=== PATIENT | female | born 1960 | race Caucasian/White ===

== ENCOUNTER 2021-04-07 13:46 | Outpatient (REF) | payer MEDICARE, MEDICAID, SELFPAY ==
[2021-04-07 14:13] LABS: COVID-19 Test Negative (Negative)
== END 2021-04-07 13:47 | disposition home or self-care (01) ==
LOC: HO.LAB 13:46
PROVIDERS: Visit Provider Internal Medicine
DX: Z20.822 Contact with and (suspected) exposure to COVID-19 (principal)
CPT/HCPCS: 36415; 87635; C9803

== ENCOUNTER 2021-05-14 17:49 | Emergency (ER) | payer MEDICARE, OTHER, SELFPAY ==
--- NOTE | ~2021-05-14 | XR_ITS ---
EXAMINATION: XR ANKLE, LEFT CLINICAL INFORMATION: Left ankle injury COMPARISON: None TECHNIQUE: AP, lateral, and mortise views of the left ankle. FINDINGS: There is a nondisplaced intra-articular fracture involving the plantar aspect of the distal calcaneus at the calcaneocuboid joint demonstrated on the lateral view only. No additional fractures are evident. The ankle mortise is preserved. There is an ankle joint effusion. Diffuse soft tissue swelling. Large heel spur. Posterior calcaneal enthesophyte. XR/XR ankle LT min 3V IMPRESSION: There is a nondisplaced fracture of the distal calcaneus extending into the calcaneocuboid joint. No additional fractures are demonstrated.
[2021-05-14 20:09] VITALS: BP 156/79; PULSE 70; RESP 18; TEMP 36.7; O2SAT 99; BMI 27.3
--- NOTE | 2021-05-14 20:43 | ED_ITS ---
HPI - Extremity Injury (Lower) General Chief Complaint: Extremity Injury, Lower Stated Complaint: fall - left leg pain Source: patient Mode of arrival: wheelchair Limitations: no limitations History of Present Illness HPI Narrative: 6-year-old female presents with left foot and ankle pain. Stated that she slipped off her stool yesterday. She has been unable to bear weight and reports 10/10 pain. She does not report any injuries or any prodromal symptoms prior to the fall. MD complaint: ankle injury and foot injury Onset (ago): day(s) (1) Place: home Severity: moderate Severity scale (1-10): 7 Relieving factors: nothing Exacerbating factors: weight bearing, movement and palpation Context: fall Associated symptoms: swelling and unable to bear weight Other symptoms: none Treatments prior to arrival: cold therapy and NSAIDS Related Data Previous Rx's Medication Instructions Recorded oxycodone 5 mg tablet 5 mg PO Q8H PRN #7 tab 05/14/21 Allergies Allergy/AdvReac Type Severity Reaction Status Date / Time apple [Apple] Allergy Unknown APPLE PEEL Verified 05/14/21 20:07 - ITCHY THROAT nut - unspecified [nut] Allergy Unknown ITCHY Verified 05/14/21 20:07 THROAT pineapple [Pineapple] Allergy Unknown ITCHY Verified 05/14/21 20:07 THROAT acetaminophen [From Percocet] Allergy Anxiety Verified 05/14/21 20:08 oxycodone [From Percocet] Allergy Anxiety Verified 05/14/21 20:08 DUST Allergy Unknown EYES, NOSE Uncoded 05/14/21 20:07 ITCHY - ASTHMA GRASS Allergy Unknown ITCHY EYES Uncoded 05/14/21 20:07 - THROAT Review of Systems Review of Systems: Constitutional: No Fever, No Chills ENT/Mouth: No Ear Pain, No Hoarseness, No sore throat Eyes: No Eye Pain, No Swelling, No Redness, No Foreign Body Cardiovascular: No Chest Pain, No SOB Respiratory: No Cough, No Dyspnea Gastrointestinal: No Nausea, No Vomiting, No Diarrhea, No abdominal Pain Genitourinary: No Dysuria, No Hematuria Musculoskeletal: positive left foot and ankle pain, swelling and bruising, No Myalgias Skin: No Skin lacerations, No rash Neuro: No Weakness, No Numbness, No Paresthesias, No Loss of Consciousness, No Dizziness, No Headache Psych: No Anxiety/Panic, No Depression Heme/Lymph: no easy bruising, no Lymphadenopathy Endocrine: No Polyuria, No Polydipsia Yes all other systems are reviewed and are negative [facility], [facility] Past Medical History Attestation statement: The following information was validated with the patient. Source: old records reviewed Social History Social History Advance Directives: No Patient : No Physical Exam Vital Signs: Vital Signs: Last Vital Signs Temp 98.1 F 05/14/21 20:09 Pulse 70 05/14/21 20:09 Resp 18 05/14/21 20:09 BP 156/79 H 05/14/21 20:09 Pulse Ox 99 05/14/21 20:09 Body Mass Index 27.3 Appearance: Alert. Oriented X3. No acute distress. Eyes: Pupils equal, round and reactive to light. ENT: Pharynx normal. Neck: Normal inspection. Neck supple. CVS: Normal heart rate and rhythm. Pulses normal. Respiratory: No respiratory distress. Breath sounds normal. Abdomen: Soft and nontender. Skin: Skin warm and dry. Normal skin color. Normal skin turgor. Extremities: Swelling and bruising noted to the left bilateral malleolar processes and foot. Decreased range of motion internal and external rotation flexion and extension. No tenderness noted to bilateral malleolar processes however there is tenderness to the heel. Brisk capillary refill and equal pedal pulses. Neuro: No motor deficit. No sensory deficit. Cranial nerves 2-12 intact. Course Course Course Narrative: 60-year-old female presents with left-sided foot and ankle pain and swelling with significant bruising after a fall. X-rays indicate calcaneal fracture, will place patient in a posterior short-leg splint with crutches and nonweightbearing. I did discuss this case with Orthopedics, patient will follow up tomorrow with Ezio TREJO. Patient continues with brisk capillary refill approximately 30 minutes status post splint placement. patient verbalized understanding of and agrees to plan of care discharge home. Consultations Consultation #1: Ezio Time: 21:00 MDM - Extremity Injury (Lower) Differential Diagnosis Differential diagnosis: Likely ankle sprain and strain and ankle fracture Medical Records Attestation: I reviewed the patient's medical records. Imaging Data left ankle and foot x-ray: Attestation: I personally reviewed and interpreted this imaging study as follows: Radiologist's impression: EXAMINATION: XR ANKLE, LEFT CLINICAL INFORMATION: Left ankle injury? COMPARISON: None? TECHNIQUE: AP, lateral, and mortise views of the left ankle. FINDINGS: There is a nondisplaced intra-articular fracture involving the plantar aspect of the distal calcaneus at the calcaneocuboid joint demonstrated on the lateral view only. No additional fractures are evident. The ankle mortise is preserved. There is an ankle joint effusion. Diffuse soft tissue swelling. Large heel spur. Posterior calcaneal enthesophyte.? XR/XR ankle LT min 3V IMPRESSION: There is a nondisplaced fracture of the distal calcaneus extending into the calcaneocuboid joint. No additional fractures are demonstrated. Discharge Plan Discharge Clinical Impression: Calcaneus fracture, left Qualifiers: Encounter type: initial encounter Calcaneus location: unspecified portion of calcaneus Fracture type: closed Fracture alignment: nondisplaced Qualified Code(s): S92.002A - Unspecified fracture of left calcaneus, initial encounter for closed fracture Ankle joint effusion Qualifiers: Laterality: left Qualified Code(s): M25.472 - Effusion, left ankle Patient Disposition: Home, Self-Care Instructions: Crutch Instructions (ED), Calcaneal Fracture (ED), R.I.C.E. Treatment (ED), Swollen Ankle Joint (ED) Additional Instructions: you were evaluated for an ankle injury. You have a nondisplaced fracture of the calcaneus, the heel bone. We placed you in a cast, you must cast in place until you see orthopedics. You must use crutches for all ambulation. You cannot bear any weight on that foot. I discussed Your case with Orthopedics. They will call you in the morning to schedule an appointment. I prescribed oxycodone for pain management. This medication is a narcotic and has high risk for addiction abuse. Do not drive or operate machinery while taking this medication. This medication is constipating so please use Colace and MiraLax to help soften stools. You must not apply any weight or pressure to that foot. you may not work until cleared by Orthopedics. This could possibly takes 7 weeks or longer to heal. Thank you for choosing this emergency department for evaluation. Please follow-up with primary care physician as needed. Return to the emergency department for any new, concerning, or worsening symptoms. Prescriptions: New oxycodone 5 mg tablet 5 mg PO Q8H PRN (Reason: pain) Qty: 7 RF: 0 Referrals: Alise Holguin PA-C [Physician [employer]] - 2 days ( calcaneus fracture) Stand Alone Forms: Work/School Release Interventions: ED Discharge Assessment Last Done: 05/14/21 22:10 Discharge Date/Time: 05/14/21 22:11
--- NOTE | 2021-05-14 22:10 | PC.NURSE ---
Pt refusing Oxycodone @ this time.
== END 2021-05-14 22:11 | disposition home or self-care (01) ==
PROVIDERS: Emergency Provider Internal Medicine
DX: S92.002A Unspecified fracture of left calcaneus, initial encounter for closed fracture (principal); W17.89XA Other fall from one level to another, initial encounter; M25.472 Effusion, left ankle; Y93.9 Activity, unspecified; Y92.009 Unspecified place in unspecified non-institutional (private) residence as the place of occurrence of the external cause; Y99.9 Unspecified external cause status
CPT/HCPCS: 29515; 73610; 99283

== ENCOUNTER → 2021-05-22 14:41 | Outpatient (BNVA) | payer MEDICARE, OTHER, SELFPAY | PROVIDERS: Visit Provider Physician Assistant | DX: S92.002A Unspecified fracture of left calcaneus, initial encounter for closed fracture (principal) | CPT/HCPCS: 99202 ==

== ENCOUNTER 2021-07-05 08:04 | Outpatient (REF) | payer MEDICARE, OTHER, SELFPAY | END 2021-07-05 08:05 | disposition home or self-care (01) | LOC: HO.HOSX 08:04 | PROVIDERS: Visit Provider Physician Assistant | DX: Z13.89 Encounter for screening for other disorder (principal) ==

== ENCOUNTER 2021-07-27 17:53 | Emergency (ER) | payer MEDICARE, OTHER, SELFPAY ==
--- NOTE | ~2021-07-27 | XR_ITS ---
EXAMINATION: X-RAY RIGHT KNEE X-RAY RIGHT FOOT CLINICAL INFORMATION: Pain. COMPARISON: None. TECHNIQUE: 2 views of the right knee and 3 views of the right foot were obtained. FINDINGS: Right knee: No acute fractures or malalignment. Mild tricompartmental degenerative changes with joint space narrowing and subcortical sclerosis. Small joint effusion. Vascular calcifications. Postsurgical changes in the posterior compartment with vascular stents and clips. Right foot: No acute fractures or malalignment. Mild degenerative osteoarthritis. Calcaneal enthesophytes. XR/XR knee RT 2V IMPRESSION: No acute fractures or malalignment. Small joint effusion in the right knee. 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 Vascular calcifications and postsurgical changes in the posterior thigh and posterior upper calf.
--- NOTE | ~2021-07-27 | XR_ITS ---
EXAMINATION: X-RAY RIGHT KNEE X-RAY RIGHT FOOT CLINICAL INFORMATION: Pain. COMPARISON: None. TECHNIQUE: 2 views of the right knee and 3 views of the right foot were obtained. FINDINGS: Right knee: No acute fractures or malalignment. Mild tricompartmental degenerative changes with joint space narrowing and subcortical sclerosis. Small joint effusion. Vascular calcifications. Postsurgical changes in the posterior compartment with vascular stents and clips. Right foot: No acute fractures or malalignment. Mild degenerative osteoarthritis. Calcaneal enthesophytes. XR/XR foot RT 2V IMPRESSION: No acute fractures or malalignment. Small joint effusion in the right knee. 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 Vascular calcifications and postsurgical changes in the posterior thigh and posterior upper calf.
[2021-07-27 18:41] VITALS: BP 135/46; PULSE 70; RESP 16; TEMP 36.5; O2SAT 99; BMI 27.1
--- NOTE | 2021-07-27 21:41 | ED_ITS ---
HPI - Extremity Problem General Chief complaint: Extremity Problem Stated complaint: rt knee and ankle pain Time Seen by Provider: 07/27/21 21:11 Source: patient Mode of arrival: ambulatory Limitations: no limitations History of Present Illness HPI Narrative: 60 years old female came in for evaluation of right knee / right ankle pain. Patient had left foot/ left ankle fracture need to wear airboot, patient been bearing more weight on her left side, yesterday while patient going up stairs at home almost fell down but caught herself before falling down, sustained pain in her right knee and right ankle, patient stated that pain is getting better by elevating right lower extremities and applying heating pad. Patient otherwise has no complain of headache or chest pain or abdominal pain. Related Data Previous Rx's Medication Instructions Recorded oxycodone 5 mg tablet 5 mg PO Q8H PRN #7 tab 05/14/21 walker #1 ea 05/22/21 Allergies Allergy/AdvReac Type Severity Reaction Status Date / Time apple [Apple] Allergy Unknown APPLE PEEL Verified 05/22/21 14:43 - ITCHY THROAT nut - unspecified [nut] Allergy Unknown ITCHY Verified 05/22/21 14:43 THROAT pineapple [Pineapple] Allergy Unknown ITCHY Verified 05/22/21 14:43 THROAT acetaminophen [From Percocet] Allergy Anxiety Verified 05/22/21 14:43 oxycodone [From Percocet] Allergy Anxiety Verified 05/22/21 14:43 DUST Allergy Unknown EYES, NOSE Uncoded 05/14/21 20:07 ITCHY - ASTHMA GRASS Allergy Unknown ITCHY EYES Uncoded 05/14/21 20:07 - THROAT Review of Systems Review of Systems: All other systems are reviewed and are negative Constitutional: Reports as per HPI and Reports no additional constitutional complaints Eyes: Reports as per HPI and Reports no additional eye complaints Reports system reviewed and no additional complaints, except as documented Cardiovascular: Reports as per HPI and Reports no additional cardiovascular complaints Respiratory: Reports as per HPI and Reports no additional respiratory complaints Gastrointestinal: Reports as per HPI and Reports no additional gastrointestinal complaints Genitourinary: Reports no additional female genitourinary complaints Musculoskeletal: Reports no additional musculoskeletal complaints Skin/Breast: Reports system reviewed and no additional complaints, except as docu Psychiatric: Reports no additional psychiatric complaints Endocrine: Reports no additional endocrine complaints Hematologic/Lymphatic: Reports no additional hematologic/lymphatic complaints Allergic/Immunologic: Reports no additional allergic/immunologic complaints Reports system reviewed and no additional complaints, except as documented and Reports Abnormal speech present [facility] [place] Social History Social History Advance Directives: No Advance Directives Information Provided: No Physical Exam Vital Signs: Vital Signs: Last Vital Signs Temp 97.7 F 07/27/21 18:41 Pulse 70 07/27/21 18:41 Resp 16 07/27/21 18:41 BP 135/46 L 07/27/21 18:41 Pulse Ox 99 07/27/21 18:41 BMI result Body Mass Index 27.1 vital signs have been reviewed as appeared to be correct. Blood pressure normal. Heart rate normal. Respiration rate normal. Temperature normal. Oxygen saturation normal. Appearance: Alert. Oriented X3. No acute distress. Head: Normal external exam. Normocephalic. Atraumatic. No Parks signs noted. No raccoon eyes noted Eyes: PERRLA. EOMI. Conjunctiva and sclera normal. Eyelids normal. ENT: TM's Normal. Pharynx normal. Uvula midline. Moist mucous membranes. No trismus noted. No drooling noted. No muffled voice noted. Neck: Normal inspection. Neck supple. FROM. No adenopathy. Thyroid Normal. No meningeal signs. No neck mass noted. CVS: Normal heart rate and rhythm. Heart sound normal. No murmurs noted. Pulses normal throughout. Respiratory: No respiratory distress. Painless inspiration. Breath sounds normal. No wheezes/rales/rhonchi noted. Chest nontender. No accessory muscle usage noted or decreased air movement noted. Abdomen: Soft and nontender. Bowel sounds normal in all 4 quadrants. No distention noted. No organomegaly noted. No visible injury noted. Back: No CVA tenderness. Full range of motion noted. Skin: Skin warm and dry. Normal skin color. Normal skin turgor. No rashes/lesions/lacerations noted. Extremities: No lower extremity edema. Extremities exhibit normal range of motion. Extremities nontender. Neuro: Oriented X 3. Cranial nerve exam: II-XII are grossly intact No motor deficit. No sensory deficit. Reflexes normal. MDM - Extremity (Nontraumatic) Imaging Data left foot x-ray: Attestation: I personally reviewed and interpreted this imaging study as follows: Radiologist's impression: no acute fracture or malalignment. Left knee x-ray: Attestation: I personally reviewed and interpreted this imaging study as follows: Radiologist's impression: small joint effusion but no fracture or malalignment. Discharge Plan Discharge Clinical Impression: Arthralgia of ankle, right Patient Disposition: Home, Self-Care Instructions: Arthralgia (ED) Prescriptions: No Action oxycodone 5 mg tablet 5 mg PO Q8H PRN (Reason: pain) Qty: 7 0RF Rx Instructions: calcaneus fracture (DME) walker Misc See Rx Instructions .MEDSUPPLY Qty: 1 0RF Rx Instructions: walker with seat and brakes Referrals: Physician,None [Primary Care Provider] - 2 days
== END 2021-07-27 22:13 | disposition home or self-care (01) ==
PROVIDERS: Emergency Provider Emergency Medicine
DX: M25.571 Pain in right ankle and joints of right foot (principal); M25.561 Pain in right knee
CPT/HCPCS: 73560; 73620; 99283

== ENCOUNTER 2021-08-02 11:34 | Outpatient (REF) | payer MEDICARE, OTHER, SELFPAY ==
--- NOTE | ~2021-08-02 | XR_ITS ---
EXAMINATION: XR CALCANEUS, LEFT CLINICAL INFORMATION: S92.002A - Unspecified fracture of left calcaneus COMPARISON: Radiographs left ankle 05/14/2021 TECHNIQUE: Lateral and axial views of the left calcaneus were obtained. FINDINGS: The nondisplaced hairline fracture distal calcaneus extending to the calcaneo-cuboid articulation is less conspicuous consistent with interval healing. There is no displacement or destructive process or interval degenerative changes. Again, there is a bulky posterior and plantar calcaneal spurs. XR/XR calcaneus LT min 2V IMPRESSION: Healing hairline nondisplaced fracture distal calcaneus.
== END 2021-08-02 11:35 | disposition home or self-care (01) ==
LOC: HO.HOSX 11:34
PROVIDERS: Visit Provider Physician Assistant
DX: S92.002D Unspecified fracture of left calcaneus, subsequent encounter for fracture with routine healing (principal)
CPT/HCPCS: 73650; 99212

== ENCOUNTER 2022-05-13 04:41 | Emergency (ER) | payer MEDICARE, MEDICAID, OTHER, SELFPAY ==
--- NOTE | 2022-05-13 | ECG_ITS ---
Test Reason : SYNCOPE Blood Pressure : / mmHG Vent. Rate : 067 BPM Atrial Rate : 067 BPM P-R Int : 178 ms QRS Dur : 096 ms QT Int : 436 ms P-R-T Axes : 054 -66 049 degrees QTc Int : 460 ms Normal sinus rhythm Left anterior fascicular block Nonspecific T wave abnormality Low voltage QRS Abnormal ECG When compared with ECG of 26-MAY-2007 11:12, Nonspecific T wave abnormality now evident in Anterolateral leads Inferior leads Referred By: Generic ED Physician Electronically Signed By:ERMIAS BOURNE MD
--- NOTE | ~2022-05-13 | CT_ITS ---
EXAMINATION: NONCONTRAST HEAD CT NONCONTRAST CERVICAL SPINE CT INDICATION INFORMATION: Fall. Headache. COMPARISON: None TECHNIQUE: Separate noncontrast CT examinations of the head and cervical spine were performed. Coronal and sagittal images were created for each examination at the technologist workstation. This CT examination was performed using dose optimization techniques as appropriate, variously including the following: *Automated exposure control *Adjustment of mA and/or kV according to patient size (this includes techniques or standardized protocols for targeted exams where dose is matched to indication/reason for exam; i.e. extremities or head) *Use of iterative reconstruction technique DLP: 964 mGy-cm FINDINGS: Head: There is no evidence of acute intracranial hemorrhage or territorial infarction. No abnormal mass effect or midline shift is seen. [place] to white matter differentiation is well preserved. No extra-axial fluid collections are identified. No hydrocephalus. Proportional prominence of the ventricles and sulcal spaces is consistent with mild volume loss. Patchy periventricular and deep white matter hypoattenuation is consistent with mild small vessel ischemic changes. No acute osseous or soft tissue abnormality. The mastoid air cells and visualized portions of the paranasal sinuses are well aerated. Cervical spine: There is anatomic alignment of the vertebral bodies and posterior elements. The atlantoaxial and atlantooccipital articulations are intact. Vertebral body heights and intervertebral disc spaces are maintained. Mild facet arthropathy. No evidence of acute fracture. No prevertebral soft tissue swelling. Visualized portions of the lung apices are unremarkable. The thyroid gland is unremarkable. CT/CT cervical spine wo IV con IMPRESSION: 1. No acute intracranial finding. 2. No fracture or malalignment of the cervical spine.
--- NOTE | ~2022-05-13 | XR_ITS ---
EXAMINATION: XR CHEST CLINICAL INFORMATION: Syncope, dizziness, rule out pneumonia COMPARISON: None TECHNIQUE: Frontal view of the chest was obtained. FINDINGS: Sternal wires and surgical clips are evident in the cardiomediastinal silhouette. Cardiac and mediastinal contours are normal. Lung volumes are normal. No consolidation, pneumothorax, or pleural effusion. Thoracic spondylosis. Osteoarthritis is present in the acromioclavicular and glenohumeral joints. XR/XR chest 1V IMPRESSION: No acute pulmonary disease.
[2022-05-13 04:51] VITALS: BP 112/80; BP 115/53; PULSE 68; PULSE 70; RESP 12; O2SAT 98; BMI 27.4
[2022-05-13 05:46] LABS: COVID-19 Test Negative (Negative); IDNOW Serial# BCCEAD1C
[2022-05-13 05:50] LABS: IDNOW Serial# 16C4AD1C; Influenza A Negative (Negative); Influenza B2 Negative (Negative)
[2022-05-13 05:56] LABS: Alanine Aminotransferase 24 U/L (0-31); Albumin Level 4.2 g/dL (3.5-5.0); Alkaline Phosphatase 62 U/L (39-117); Anion Gap 18 (12-20); Aspartate Amino Transferase 22 U/L (5-31); Bilirubin Total 0.5 mg/dL (0.0-1.0); Blood Urea Nitrogen 17 mg/dL (9-16); Calcium 9.7 mg/dL (8.4-10.2); Carbon Dioxide 24 mmol/L (22-29); Chloride 102 mmol/L (96-108); Creatinine Clr Calc Pharmacy 34.7; Estimated Glomerular Filt Rate 34; Ethanol < 10 mg/dL; Glucose Random 162 mg/dL (60-115); Potassium 4.5 mmol/L (3.3-5.1); Sodium 139 mmol/L (135-145); Total Protein 7.5 g/dL (6.5-8.0)
[2022-05-13 05:58] LABS: Troponin-I High Sensitivity 6.3 ng/L (<3.5-17.0)
[2022-05-13 07:03] LABS: Basophils Absolute Auto 0.1 X10*3/uL (0.0-0.2); Basophils Percent Auto 0.4 % (0-2); Eosinophils Absolute Auto 0.2 X10*3/uL (0.0-0.4); Eosinophils Percent Auto 1.5 % (0-4); Hematocrit 43.1 % (37.0-47.0); Imm Gran Abs Auto 0.05 X10*3/uL (0.00-0.03); Imm Gran Pct Auto 0.4 % (0.0-0.4); Lymphocytes Percent Auto 14.3 % (20-40); Mean Corpuscular HGB Conc 32.5 g/dl (31.0-35.0); Mean Corpuscular Hemoglobin 27.7 pg (27.0-33.0); Mean Corpuscular Volume 85.2 fL (80.0-98.0); Mean Platelet Volume 10.8 fL (9.4-12.3); Monocytes Absolute Auto 0.9 X10*3/uL (0.1-1.2); Monocytes Percent Auto 6.7 % (2-11); Neutrophils Absolute Auto 10.6 x10*3/uL (2.0-8.3); Neutrophils Percent Auto 76.7 % (45-73); Platelet Count 224 X10*3/uL (160-400); Red Blood Count 5.06 X10*6/uL (4.20-5.50); Red Cell Distribution Width 13.7 % (11.0-16.0); White Blood Count 13.7 X10*3/uL (4.8-10.8)
[2022-05-13 07:13] LABS: MANUAL DIFF FLAG NO
--- NOTE | 2022-05-13 07:19 | ED_ITS ---
HPI - General Adult General Chief complaint: Fall Stated complaint: Syncopal/ collapsed Time Seen by Provider: 05/13/22 07:06 Source: patient and EMS Mode of arrival: EMS Limitations: no limitations History of Present Illness HPI narrative: 61-year-old female brought in by ambulance after fell last night. Patient takes 1 mg of lorazepam and 2 pills of Benadryl to help her to sleep patient felt drowsy and tired after taking the pills last night the patient do not remember anything after that, patient is awake now declined any headache or blurry vision, no chest pain or shortness of breath. Patient stated that she suffer from insomnia and she use lorazepam to help her to sleep at night. No seizure activity was reported by EMS or the patient. Related Data Previous Rx's Medication Instructions Recorded oxycodone 5 mg tablet 5 mg PO Q8H PRN pain #7 tabs 05/14/21 walker #1 ea 05/22/21 Allergies Allergy/AdvReac Type Severity Reaction Status Date / Time apple [Apple] Allergy Unknown APPLE PEEL Verified 08/02/21 14:02 - ITCHY THROAT nut - unspecified [nut] Allergy Unknown ITCHY Verified 08/02/21 14:02 THROAT pineapple [Pineapple] Allergy Unknown ITCHY Verified 08/02/21 14:02 THROAT acetaminophen [From Percocet] Allergy Anxiety Verified 08/02/21 14:02 oxycodone [From Percocet] Allergy Anxiety Verified 08/02/21 14:02 DUST Allergy Unknown EYES, NOSE Uncoded 05/14/21 20:07 ITCHY - ASTHMA GRASS Allergy Unknown ITCHY EYES Uncoded 05/14/21 20:07 - THROAT Review of Systems Review of Systems: All other systems are reviewed and are negative Constitutional: Reports as per HPI and Reports no additional constitutional complaints Eyes: Reports as per HPI and Reports no additional eye complaints Reports system reviewed and no additional complaints, except as documented Cardiovascular: Reports as per HPI and Reports no additional cardiovascular complaints Respiratory: Reports as per HPI and Reports no additional respiratory complaints Gastrointestinal: Reports as per HPI and Reports no additional gastrointestinal complaints Genitourinary: Reports no additional female genitourinary complaints Musculoskeletal: Reports no additional musculoskeletal complaints Skin/Breast: Reports system reviewed and no additional complaints, except as docu Psychiatric: Reports no additional psychiatric complaints Endocrine: Reports no additional endocrine complaints Hematologic/Lymphatic: Reports no additional hematologic/lymphatic complaints Allergic/Immunologic: Reports no additional allergic/immunologic complaints Reports system reviewed and no additional complaints, except as documented and Reports Abnormal speech present [facility] Social History Social History Alcohol intake: current Alcohol intake frequency: holidays/special occasions only Smoked in Last 30 Days: No Use of substances other than those prescribed or required for medical reasons: No Advance Directives: No Advance Directives Information Provided: No Patient : No Physical Exam ED Vital Signs: Vital Signs - 24 hr 05/13/22 04:51 05/13/22 07:51 05/13/22 08:36 Temperature 97.9 F 98.2 F Pulse Rate 68 71 71 Respiratory Rate 12 18 16 Blood Pressure 115/53 L 151/76 H 146/65 H Pulse Oximetry 98 98 96 Oxygen Delivery Method Room Air Room Air Room Air BMI result Body Mass Index 27.4 Vital signs have been reviewed as appeared to be correct. Blood pressure normal. Heart rate normal. Respiration rate normal. Temperature normal. Oxygen saturation normal. Appearance: Alert. Oriented X3. No acute distress. Head: Normal external exam. Normocephalic. Atraumatic. No Parks signs noted. No raccoon eyes noted Eyes: PERRLA. EOMI. Conjunctiva and sclera normal. Eyelids normal. ENT: TM's Normal. Pharynx normal. Uvula midline. Moist mucous membranes. No trismus noted. No drooling noted. No muffled voice noted. Neck: Normal inspection. Neck supple. FROM. No adenopathy. Thyroid Normal. No meningeal signs. No neck mass noted. CVS: Normal heart rate and rhythm. Heart sound normal. No murmurs noted. Pulses normal throughout. Respiratory: No respiratory distress. Painless inspiration. Breath sounds normal. No wheezes/rales/rhonchi noted. Chest nontender. No accessory muscle usage noted or decreased air movement noted. Abdomen: Soft and nontender. Bowel sounds normal in all 4 quadrants. No distention noted. No organomegaly noted. No visible injury noted. Back: No CVA tenderness. Full range of motion noted. Skin: Skin warm and dry. Normal skin color. Normal skin turgor. No rashes/lesions/lacerations noted. Extremities: No lower extremity edema. Extremities exhibit normal range of motion. Extremities nontender. Neuro: Oriented X 3. Cranial nerve exam: II-XII are grossly intact No motor deficit. No sensory deficit. Reflexes normal. Course Course Course Narrative: 61-year-old female brought in after she fell at home, patient use lorazepam 1 mg and Benadryl 2 pills felt very drowsy and tired and fell asleep patient do not remember the incidence of fall last night, however patient declined headache, CP or SOB. Labs were discussed with the patient with a minor kidney disease unclear if this is acute or chronic abdomen patient was instructed to follow-up with her primary doctor. Patient has no dysuria or frequency urination. Medications Administered Discontinued Medications Generic Name Dose Route Start Last Admin Trade Name Freq PRN Reason Stop Dose Admin Sodium Chloride 1,000 mls @ 999 mls/hr 05/13/22 08:35 05/13/22 09:17 Ns IV 05/13/22 09:35 999 mls/hr .Q1H1M ONE Administration Medical Decision Making Lab Data Lab results reviewed: Yes I reviewed the patient's lab results. Result diagrams: 05/13/22 06:57 05/13/22 05:27 Labs: Lab Results 05/13/22 05/13/22 05/13/22 Range/Units 05:27 05:27 05:27 WBC (4.8-10.8) X10*3/uL RBC (4.20-5.50) X10*6/uL Hgb (12.0-16.0) g/dl Hct (37.0-47.0) % MCV (80.0-98.0) fL MCH (27.0-33.0) pg MCHC (31.0-35.0) g/dl RDW (11.0-16.0) % Plt Count (160-400) X10*3/uL MPV (9.4-12.3) fL Immature Gran % (Auto) (0.0-0.4) % Neut % (Auto) (45-73) % Lymph % (Auto) (20-40) % [place] % (Auto) (2-11) % Eos % (Auto) (0-4) % Baso % (Auto) (0-2) % Lymph # (Auto) (1.2-4.9) X10*3/uL [place] # (Auto) (0.1-1.2) X10*3/uL Eos # (Auto) (0.0-0.4) X10*3/uL Baso # (Auto) (0.0-0.2) X10*3/uL Abs Immat Gran (auto) (0.00-0.03) X10*3/uL Absolute Neuts (auto) (2.0-8.3) x10*3/uL Absolute Nucleated RBC (0.0-0.012) X10*3/uL Nucleated RBC % (auto) (0.0-0.2) /100WBC PT (10.0-13.1) SEC INR (0.9-1.1) APTT (26.0-36.4) SEC Sodium 139 (135-145) mmol/L Potassium 4.5 (3.3-5.1) mmol/L Chloride 102 (96-108) mmol/L Carbon Dioxide 24 (22-29) mmol/L Anion Gap 18 (12-20) BUN 17 H (9-16) mg/dL Creatinine 1.54 H (0.5-1.4) mg/dL Estim Creat Clear Calc 34.7 Estimated GFR 34 Random Glucose 162 H (60-115) mg/dL Calcium 9.7 (8.4-10.2) mg/dL Total Bilirubin 0.5 (0.0-1.0) mg/dL AST 22 (5-31) U/L ALT 24 (0-31) U/L Alkaline Phosphatase 62 (39-117) U/L Troponin I High Sens 6.3 (<3.5-17.0) ng/L Total Protein 7.5 (6.5-8.0) g/dL Albumin 4.2 (3.5-5.0) g/dL Urine Color Urine Appearance Urine pH (5.0-9.0) Ur Specific [place] (1.005-1.025) Urine Protein (Neg-Trace) mg/dL Urine Glucose (UA) (Negative) mg/dL Urine Ketones (Negative) mg/dL Urine Blood (Negative) Urine Nitrite (Negative) Ur Leukocyte Esterase (Negative) Urine RBC (0-2) /HPF Urine WBC (0-5) /HPF Ur Squamous Epith Cells (0-2) /HPF Calcium Oxalate Crystal Urine Bacteria (None Seen) Hyaline Casts (0-2) /LPF Ethyl Alcohol < 10 mg/dL COVID-19 ([facility]) (Negative) COVID-19 Clin Com Influenza Type A ([facility]) Negative (Negative) Influenza Type B ([facility]) Negative (Negative) Influenza A & B Note See Note 05/13/22 05/13/22 05/13/22 Range/Units 05:27 06:57 08:42 WBC 13.7 H (4.8-10.8) X10*3/uL RBC 5.06 (4.20-5.50) X10*6/uL Hgb 14.0 (12.0-16.0) g/dl Hct 43.1 (37.0-47.0) % MCV 85.2 (80.0-98.0) fL MCH 27.7 (27.0-33.0) pg MCHC 32.5 (31.0-35.0) g/dl RDW 13.7 (11.0-16.0) % Plt Count 224 (160-400) X10*3/uL MPV 10.8 (9.4-12.3) fL Immature Gran % (Auto) 0.4 (0.0-0.4) % Neut % (Auto) 76.7 H (45-73) % Lymph % (Auto) 14.3 L (20-40) % [place] % (Auto) 6.7 (2-11) % Eos % (Auto) 1.5 (0-4) % Baso % (Auto) 0.4 (0-2) % Lymph # (Auto) 2.0 (1.2-4.9) X10*3/uL [place] # (Auto) 0.9 (0.1-1.2) X10*3/uL Eos # (Auto) 0.2 (0.0-0.4) X10*3/uL Baso # (Auto) 0.1 (0.0-0.2) X10*3/uL Abs Immat Gran (auto) 0.05 H (0.00-0.03) X10*3/uL Absolute Neuts (auto) 10.6 H (2.0-8.3) x10*3/uL Absolute Nucleated RBC 0.000 (0.0-0.012) X10*3/uL Nucleated RBC % (auto) 0.0 (0.0-0.2) /100WBC PT 12.0 (10.0-13.1) SEC INR 1.0 (0.9-1.1) APTT 31.1 (26.0-36.4) SEC Sodium (135-145) mmol/L Potassium (3.3-5.1) mmol/L Chloride (96-108) mmol/L Carbon Dioxide (22-29) mmol/L Anion Gap (12-20) BUN (9-16) mg/dL Creatinine (0.5-1.4) mg/dL Estim Creat Clear Calc Estimated GFR Random Glucose (60-115) mg/dL Calcium (8.4-10.2) mg/dL Total Bilirubin (0.0-1.0) mg/dL AST (5-31) U/L ALT (0-31) U/L Alkaline Phosphatase (39-117) U/L Troponin I High Sens (<3.5-17.0) ng/L Total Protein (6.5-8.0) g/dL Albumin (3.5-5.0) g/dL Urine Color Urine Appearance Urine pH (5.0-9.0) Ur Specific [place] (1.005-1.025) Urine Protein (Neg-Trace) mg/dL Urine Glucose (UA) (Negative) mg/dL Urine Ketones (Negative) mg/dL Urine Blood (Negative) Urine Nitrite (Negative) Ur Leukocyte Esterase (Negative) Urine RBC (0-2) /HPF Urine WBC (0-5) /HPF Ur Squamous Epith Cells (0-2) /HPF Calcium Oxalate Crystal Urine Bacteria (None Seen) Hyaline Casts (0-2) /LPF Ethyl Alcohol mg/dL COVID-19 ([facility]) Negative (Negative) COVID-19 Clin Com See Note Influenza Type A ([facility]) (Negative) Influenza Type B ([facility]) (Negative) Influenza A & B Note 05/13/22 Range/Units 08:53 WBC (4.8-10.8) X10*3/uL RBC (4.20-5.50) X10*6/uL Hgb (12.0-16.0) g/dl Hct (37.0-47.0) % MCV (80.0-98.0) fL MCH (27.0-33.0) pg MCHC (31.0-35.0) g/dl RDW (11.0-16.0) % Plt Count (160-400) X10*3/uL MPV (9.4-12.3) fL Immature Gran % (Auto) (0.0-0.4) % Neut % (Auto) (45-73) % Lymph % (Auto) (20-40) % [place] % (Auto) (2-11) % Eos % (Auto) (0-4) % Baso % (Auto) (0-2) % Lymph # (Auto) (1.2-4.9) X10*3/uL [place] # (Auto) (0.1-1.2) X10*3/uL Eos # (Auto) (0.0-0.4) X10*3/uL Baso # (Auto) (0.0-0.2) X10*3/uL Abs Immat Gran (auto) (0.00-0.03) X10*3/uL Absolute Neuts (auto) (2.0-8.3) x10*3/uL Absolute Nucleated RBC (0.0-0.012) X10*3/uL Nucleated RBC % (auto) (0.0-0.2) /100WBC PT (10.0-13.1) SEC INR (0.9-1.1) APTT (26.0-36.4) SEC Sodium (135-145) mmol/L Potassium (3.3-5.1) mmol/L Chloride (96-108) mmol/L Carbon Dioxide (22-29) mmol/L Anion Gap (12-20) BUN (9-16) mg/dL Creatinine (0.5-1.4) mg/dL Estim Creat Clear Calc Estimated GFR Random Glucose (60-115) mg/dL Calcium (8.4-10.2) mg/dL Total Bilirubin (0.0-1.0) mg/dL AST (5-31) U/L ALT (0-31) U/L Alkaline Phosphatase (39-117) U/L Troponin I High Sens (<3.5-17.0) ng/L Total Protein (6.5-8.0) g/dL Albumin (3.5-5.0) g/dL Urine Color Dark Yellow Urine Appearance Clear Urine pH 5.0 (5.0-9.0) Ur Specific [place] 1.020 (1.005-1.025) Urine Protein Trace (Neg-Trace) mg/dL Urine Glucose (UA) >=1000 H (Negative) mg/dL Urine Ketones Trace (Negative) mg/dL Urine Blood Negative (Negative) Urine Nitrite Negative (Negative) Ur Leukocyte Esterase Trace H (Negative) Urine RBC 0-2 (0-2) /HPF Urine WBC 0-5 (0-5) /HPF Ur Squamous Epith Cells 3-5 (0-2) /HPF Calcium Oxalate Crystal Present Urine Bacteria None Seen (None Seen) Hyaline Casts 3-5 (0-2) /LPF Ethyl Alcohol mg/dL COVID-19 ([facility]) (Negative) COVID-19 Clin Com Influenza Type A ([facility]) (Negative) Influenza Type B ([facility]) (Negative) Influenza A & B Note Imaging Data Head/cervical spine CT: Attestation: I personally reviewed and interpreted this imaging study as follows: Radiologist's impression: 1.? No acute intracranial finding. 2.? No fracture or malalignment of the cervical spine. ? Discharge Plan Discharge Clinical Impression: Syncope, Renal insufficiency Patient Disposition: Home, Self-Care Instructions: Impaired Kidney Function (ED) Additional Instructions: Follow-up with [facility] Prescriptions: No Action oxycodone 5 mg tablet 5 mg PO Q8H PRN (Reason: pain) Qty: 7 0RF Rx Instructions: calcaneus fracture (DME) walker Misc See Rx Instructions .MEDSUPPLY Qty: 1 0RF Rx Instructions: walker with seat and brakes Referrals: Physician,None [Primary Care Provider] -
[2022-05-13 07:51] VITALS: BP 151/76; PULSE 71; RESP 18; TEMP 36.6; O2SAT 98
[2022-05-13 08:36] VITALS: BP 146/65; PULSE 71; RESP 16; TEMP 36.8; O2SAT 96
[2022-05-13 08:55] LABS: Partial Thromboplastin Time 31.1 SEC (26.0-36.4)
[2022-05-13 09:02] LABS: Appearance Urine Clear; Color Urine Dark Yellow; Glucose Urine UA >=1000 mg/dL (Negative); Leukocyte Esterase Urine Trace (Negative); Nitrite Urine Negative (Negative); UMIC TRIGGER UACC YES; Urine Blood Negative (Negative); Urine Ketones Trace mg/dL (Negative); Urine Protein Trace mg/dL (Neg-Trace)
[2022-05-13 09:11] LABS: Bacteria Urine None Seen (None Seen); Calcium Oxalate Crystals Urine Present; RBC Urine 0-2 /HPF (0-2); WBC Urine 0-5 /HPF (0-5)
[2022-05-13] MEDS: 0.9 % Sodium Chloride 1,000 ML 999 ML IV (09:17)
[2022-05-13 09:50] VITALS: BP 133/54; PULSE 74; RESP 16; O2SAT 97
== END 2022-05-13 10:24 | disposition home or self-care (01) ==
PROVIDERS: Emergency Medicine Emergency Medical Services; Emergency Provider Emergency Medicine
DX: R55 Syncope and collapse (principal); G47.00 Insomnia, unspecified; M54.2 Cervicalgia; R51.9 Headache, unspecified; Z20.822 Contact with and (suspected) exposure to COVID-19; Z79.899 Other long term (current) drug therapy
CPT/HCPCS: 70450; 71045; 72125; 80053; 81001; 81003; 82077; 84484; 85025; 85610; 85730; 87502; 87635; 93005; 99285

== ENCOUNTER 2022-07-31 23:12 | Emergency (ER) | payer MEDICARE, MEDICAID, SELFPAY ==
--- NOTE | 2022-07-31 | ECG_ITS ---
Test Reason : CHEST PAIN Blood Pressure : / mmHG Vent. Rate : 088 BPM Atrial Rate : 088 BPM P-R Int : 152 ms QRS Dur : 076 ms QT Int : 352 ms P-R-T Axes : 060 -70 046 degrees QTc Int : 425 ms Normal sinus rhythm Left axis deviation Inferior infarct (cited on or before 31-JUL-2022) Anteroseptal infarct (cited on or before 31-JUL-2022) Abnormal ECG When compared with ECG of 13-MAY-2022 04:56, Questionable change in initial forces of Anterior leads Nonspecific T wave abnormality no longer evident in Anterior leads Referred By: Generic ED Physician Electronically Signed By:Dexter Le
--- NOTE | ~2022-07-31 | XR_ITS ---
EXAMINATION: XR CHEST CLINICAL INFORMATION: Tightness COMPARISON: 05/13/2022 TECHNIQUE: Frontal view of the chest was obtained. FINDINGS: Median sternotomy wires appear intact. Surgical clips overlie the mediastinum. The lungs are well expanded. There is no focal consolidation, edema, or effusion. No pneumothorax. The cardiomediastinal silhouette is within normal limits. No acute osseous abnormality. XR/XR chest 1V IMPRESSION: No acute pulmonary disease.
[2022-07-31 23:15] VITALS: BP 105/59; PULSE 94; RESP 18; TEMP 36.6; O2SAT 99; BMI 27.8
[2022-08-01 00:04] LABS: MANUAL DIFF FLAG NO
[2022-08-01 00:07] LABS: Basophils Absolute Auto 0.1 X10*3/uL (0.0-0.2); Basophils Percent Auto 0.6 % (0-2); Eosinophils Absolute Auto 0.4 X10*3/uL (0.0-0.4); Eosinophils Percent Auto 4.6 % (0-4); Hematocrit 38.8 % (37.0-47.0); Imm Gran Abs Auto 0.03 X10*3/uL (0.00-0.03); Imm Gran Pct Auto 0.3 % (0.0-0.4); Lymphocytes Absolute Auto 2.5 X10*3/uL (1.2-4.9); Lymphocytes Percent Auto 28.6 % (20-40); Mean Corpuscular HGB Conc 33.5 g/dl (31.0-35.0); Mean Corpuscular Hemoglobin 28.5 pg (27.0-33.0); Mean Corpuscular Volume 85.1 fL (80.0-98.0); Mean Platelet Volume 10.1 fL (9.4-12.3); Monocytes Absolute Auto 0.7 X10*3/uL (0.1-1.2); Monocytes Percent Auto 7.7 % (2-11); Neutrophils Absolute Auto 5.1 x10*3/uL (2.0-8.3); Neutrophils Percent Auto 58.2 % (45-73); Platelet Count 268 X10*3/uL (160-400); Red Blood Count 4.56 X10*6/uL (4.20-5.50); Red Cell Distribution Width 13.4 % (11.0-16.0); White Blood Count 8.7 X10*3/uL (4.8-10.8)
--- NOTE | 2022-08-01 00:11 | ED_ITS ---
HPI - Chest Pain General Chief Complaint: Chest Pain Stated Complaint: sob, chest pain, dizziness Time Seen by Provider: 08/01/22 00:11 Source: patient Mode of arrival: ambulatory Limitations: no limitations History of Present Illness HPI narrative: Patient's history of coronary artery disease status post CABG three-vessel 2009 angioplasty, peripheral vascular disease comes here for chronic chest pain for last 2 months and shortness of breath saw her PCP 07/18 supposed to have follow-up planned with senior telecommunications consultant comes here for ongoing problems no acute increase in chest pain has been a dull localized to left side increases on deep breath and palpation no radiation of pain no diaphoresis feel dizzy on Xarelto and aspirin Related Data Previous Rx's Medication Instructions Recorded oxycodone 5 mg tablet 5 mg PO Q8H PRN pain #7 tabs 05/14/21 walker #1 ea 05/22/21 Allergies Allergy/AdvReac Type Severity Reaction Status Date / Time apple [Apple] Allergy Unknown APPLE PEEL Verified 08/02/21 14:02 - ITCHY THROAT nut - unspecified [nut] Allergy Unknown ITCHY Verified 08/02/21 14:02 THROAT pineapple [Pineapple] Allergy Unknown ITCHY Verified 08/02/21 14:02 THROAT acetaminophen [From Percocet] Allergy Anxiety Verified 07/31/22 23:22 oxycodone [From Percocet] Allergy Anxiety Verified 07/31/22 23:22 DUST Allergy Unknown EYES, NOSE Uncoded 05/14/21 20:07 ITCHY - ASTHMA GRASS Allergy Unknown ITCHY EYES Uncoded 05/14/21 20:07 - THROAT Review of Systems Review of Systems: Yes all other systems are reviewed and are negative [facility] Social History Social History Alcohol intake: current Alcohol intake frequency: holidays/special occasions only Advance Directives: No Physical Exam Vital Signs: Vital Signs: Last Vital Signs Temp 98.0 F 08/01/22 01:51 Pulse 92 08/01/22 01:51 Resp 12 08/01/22 01:51 BP 132/51 L 08/01/22 01:51 Pulse Ox 98 08/01/22 01:51 O2 Del Method 08/01/22 01:51 BMI result Body Mass Index 27.8 Appearance: Alert. Oriented X3. No acute distress. Eyes: PERRLA, No Nystagmus ENT: Pharynx normal. Oral Mucosa moist Neck: Normal inspection. Neck supple. CVS: Normal heart rate and rhythm. Pulses normal. Respiratory: No respiratory distress. Equal air entry bilateral, no wheezing/rales/rhonchi Abdomen: Soft and nontender. Bowel sounds are present, no mass palpable, no CVA tenderness Skin: Skin warm and dry. Normal skin color. Normal skin turgor. Extremities: No lower extremity edema. No calf tenderness Neuro: Oriented X 3. No motor deficit. No sensory deficit.No cerebellar signs , cranial nerves II-XII intact Medical Decision Making Medical Decision Making [facility] Narrative: patient with chronic shortness of breath dizziness and chest pain for more than 2 months workup negative for acute ischemic changes no delta change in high sensitive troponin patient is comfortable on Xarelto and aspirin will advised to continue same follow-up with senior telecommunications consultant, has normal orthostatics Differential Diagnosis ACS/ chronic chest pain/chronic shortness of breath/ chronic pain/CHF Lab Data [facility] Lab Attestation statement: I reviewed the patient's lab results. 07/31/22 23:58 07/31/22 23:58 Labs: Lab Results 07/31/22 07/31/22 07/31/22 Range/Units 23:58 23:58 23:58 WBC 8.7 (4.8-10.8) X10*3/uL RBC 4.56 (4.20-5.50) X10*6/uL Hgb 13.0 (12.0-16.0) g/dl Hct 38.8 (37.0-47.0) % MCV 85.1 (80.0-98.0) fL MCH 28.5 (27.0-33.0) pg MCHC 33.5 (31.0-35.0) g/dl RDW 13.4 (11.0-16.0) % Plt Count 268 (160-400) X10*3/uL MPV 10.1 (9.4-12.3) fL Immature Gran % (Auto) 0.3 (0.0-0.4) % Neut % (Auto) 58.2 (45-73) % Lymph % (Auto) 28.6 (20-40) % [place] % (Auto) 7.7 (2-11) % Eos % (Auto) 4.6 H (0-4) % Baso % (Auto) 0.6 (0-2) % Lymph # (Auto) 2.5 (1.2-4.9) X10*3/uL [place] # (Auto) 0.7 (0.1-1.2) X10*3/uL Eos # (Auto) 0.4 (0.0-0.4) X10*3/uL Baso # (Auto) 0.1 (0.0-0.2) X10*3/uL Abs Immat Gran (auto) 0.03 (0.00-0.03) X10*3/uL Absolute Neuts (auto) 5.1 (2.0-8.3) x10*3/uL Absolute Nucleated RBC 0.000 (0.0-0.012) X10*3/uL Nucleated RBC % (auto) 0.0 (0.0-0.2) /100WBC D-Dimer High Sensitivty NG/ML Sodium 140 (135-145) mmol/L Potassium 4.1 (3.3-5.1) mmol/L Chloride 102 (96-108) mmol/L Carbon Dioxide 25 (22-29) mmol/L Anion Gap 17 (12-20) BUN 13 (9-16) mg/dL Creatinine 1.34 (0.5-1.4) mg/dL Estim Creat Clear Calc 38.5 Estimated GFR 40 Random Glucose 124 H (60-115) mg/dL Calcium 9.4 (8.4-10.2) mg/dL Total Bilirubin 0.6 (0.0-1.0) mg/dL Direct Bilirubin 0.2 (0.0-0.5) mg/dL AST 16 (5-31) U/L ALT 14 (0-31) U/L Alkaline Phosphatase 67 (39-117) U/L Troponin I High Sens 10.5 D (<3.5-17.0) ng/L Total Protein 6.9 (6.5-8.0) g/dL Albumin 4.0 (3.5-5.0) g/dL Lipase 30 (8-78) U/L 07/31/22 08/01/22 Range/Units 23:58 01:26 WBC (4.8-10.8) X10*3/uL RBC (4.20-5.50) X10*6/uL Hgb (12.0-16.0) g/dl Hct (37.0-47.0) % MCV (80.0-98.0) fL MCH (27.0-33.0) pg MCHC (31.0-35.0) g/dl RDW (11.0-16.0) % Plt Count (160-400) X10*3/uL MPV (9.4-12.3) fL Immature Gran % (Auto) (0.0-0.4) % Neut % (Auto) (45-73) % Lymph % (Auto) (20-40) % [place] % (Auto) (2-11) % Eos % (Auto) (0-4) % Baso % (Auto) (0-2) % Lymph # (Auto) (1.2-4.9) X10*3/uL [place] # (Auto) (0.1-1.2) X10*3/uL Eos # (Auto) (0.0-0.4) X10*3/uL Baso # (Auto) (0.0-0.2) X10*3/uL Abs Immat Gran (auto) (0.00-0.03) X10*3/uL Absolute Neuts (auto) (2.0-8.3) x10*3/uL Absolute Nucleated RBC (0.0-0.012) X10*3/uL Nucleated RBC % (auto) (0.0-0.2) /100WBC D-Dimer High Sensitivty 159 NG/ML Sodium (135-145) mmol/L Potassium (3.3-5.1) mmol/L Chloride (96-108) mmol/L Carbon Dioxide (22-29) mmol/L Anion Gap (12-20) BUN (9-16) mg/dL Creatinine (0.5-1.4) mg/dL Estim Creat Clear Calc Estimated GFR Random Glucose (60-115) mg/dL Calcium (8.4-10.2) mg/dL Total Bilirubin (0.0-1.0) mg/dL Direct Bilirubin (0.0-0.5) mg/dL AST (5-31) U/L ALT (0-31) U/L Alkaline Phosphatase (39-117) U/L Troponin I High Sens 8.3 (<3.5-17.0) ng/L Total Protein (6.5-8.0) g/dL Albumin (3.5-5.0) g/dL Lipase (8-78) U/L Independent Interpretation I performed an independent interpretation of an: EKG Interpretation: normal sinus rhythm at 88 beats per minute left axis deviation full rotation of R-wave no acute ST-T changes no acute ischemia Discharge Plan Discharge Clinical Impression: Chest pain Patient Disposition: Home, Self-Care Instructions: Chest Pain (ED) Additional Instructions: continue taking medications and follow with PCP/senior telecommunications consultant Prescriptions: No Action oxycodone 5 mg tablet 5 mg PO Q8H PRN (Reason: pain) Qty: 7 0RF Rx Instructions: calcaneus fracture (DME) walker Misc See Rx Instructions .MEDSUPPLY Qty: 1 0RF Rx Instructions: walker with seat and brakes Referrals: Dmitry Hernandez MD [Physician] - 1 week
[2022-08-01 00:12] LABS: D Dimer High Sensitivity 159 NG/ML
[2022-08-01 00:24] LABS: Alanine Aminotransferase 14 U/L (0-31); Alkaline Phosphatase 67 U/L (39-117); Anion Gap 17 (12-20); Aspartate Amino Transferase 16 U/L (5-31); Bilirubin Direct 0.2 mg/dL (0.0-0.5); Bilirubin Total 0.6 mg/dL (0.0-1.0); Blood Urea Nitrogen 13 mg/dL (9-16); Calcium 9.4 mg/dL (8.4-10.2); Carbon Dioxide 25 mmol/L (22-29); Chloride 102 mmol/L (96-108); Creatinine Clr Calc Pharmacy 38.5; Estimated Glomerular Filt Rate 40; Glucose Random 124 mg/dL (60-115); Lipase 30 U/L (8-78); Potassium 4.1 mmol/L (3.3-5.1); Sodium 140 mmol/L (135-145); Total Protein 6.9 g/dL (6.5-8.0)
[2022-08-01 00:25] LABS: Troponin-I High Sensitivity 10.5 ng/L (<3.5-17.0)
[2022-08-01 01:13] VITALS: BP 125/54; PULSE 88
[2022-08-01 01:50] VITALS: BP 132/51; BP 143/65; PULSE 84; PULSE 92
[2022-08-01 01:51] VITALS: BP 132/51; PULSE 92; RESP 12; TEMP 36.7; O2SAT 98
[2022-08-01 02:00] LABS: Troponin-I High Sensitivity 8.3 ng/L (<3.5-17.0)
== END 2022-08-01 02:59 | disposition home or self-care (01) ==
PROVIDERS: Emergency Provider Internal Medicine
DX: R07.9 Chest pain, unspecified (principal); R06.02 Shortness of breath; E11.9 Type 2 diabetes mellitus without complications; I10 Essential (primary) hypertension; Z95.1 Presence of aortocoronary bypass graft; Z79.82 Long term (current) use of aspirin
CPT/HCPCS: 36415; 71045; 80048; 80076; 83690; 84484; 85025; 85379; 93005; 99283; 99284

== ENCOUNTER 2022-08-12 03:12 | Inpatient (IN) | payer MEDICARE, MEDICAID, SELFPAY ==
[2022-08-12] VITALS (8 sets, daily range): BP systolic 116–180; BP diastolic 54–96; PULSE 62–78; RESP 10–18; TEMP 36.5–37.1; O2SAT 95–100; BMI 29.9
--- NOTE | ~2022-08-12 | CT_ITS ---
EXAMINATION: CT ANGIOGRAM NECK AND HEAD CLINICAL INFORMATION: Dysarthria COMPARISON: Head CT from earlier today TECHNIQUE: Test bolus sequences followed by intravenous administration 70 mL of Omnipaque 350. Helical imaging was performed in the axial plane from the thoracic inlet to the skull vertex. Delayed postcontrast imaging of the head was also performed. The data was processed at the lab technologist's workstation for generation of MIP sequences. Angled MIPs and volume rendered reformatted images were also generated at an offline 3D workstation. Stenoses are assessed in accordance with NASCET criteria unless otherwise indicated. DOSE LOWERING TECHNIQUES: This CT examination was performed using dose optimization techniques as appropriate, variously including the following: - Automated exposure control - Adjustment of mA and/or kV according to patient size (this includes techniques or standardized protocols for targeted exams were dose is matched to indication/reason for exam; i.e. extremities or head) - Use of iterative reconstruction technique DLP: 1410 mGy-cm FINDINGS: Neck CTA: There is common origin of the brachiocephalic and left common carotid arteries off the aortic arch. Scattered calcification of the visualized thoracic aorta. No significant stenosis at the branch origins. The right vertebral artery is widely patent. The left vertebral artery is diminutive. There appears to be focal occlusion versus severe stenosis of the left vertebral artery at the level of C6; the vessel also appears narrowed at the levels of C4 and C5. There is calcification at the origins of the bilateral internal carotid arteries which appears to up to approximately 50% luminal narrowing. Remainder of the bilateral common and internal carotid arteries are widely patent. Brain CTA: There is scattered calcification along the right intradural vertebral artery which appears mildly narrowed. The intradural left vertebral artery is significantly diminutive proximal calcification and multifocal irregularity along the vessel. The basilar and superior cerebellar arteries are patent. There is origin of the right posterior cerebral artery. Bilateral posterior cerebral arteries otherwise appear unremarkable and well opacified. Normal appearance of the intradural internal carotid arteries without focal stenosis. Normal appearance of the anterior cerebral and middle cerebral arteries without focal occlusion or stenosis. Normal anterior communicating artery. Normal arborization of the middle cerebral arteries. CT Head: No intracranial mass, hemorrhage, extra-axial collection, or midline shift. The saunedrs-white matter differentiation is preserved. There is mild periventricular white matter hypoattenuation consistent with chronic small vessel ischemic disease. Mild volume loss is noted. No pathologic intra-axial enhancement or regional oligemia. No hydrocephalus. The mastoid air cells and paranasal sinuses remain well aerated. CT Neck: The thyroid gland and remaining cervical soft tissues are normal in appearance. There is left-sided facet arthropathy in the cervical spine. Upper Chest: No acute abnormalities in the visualized lung apices or upper mediastinum. Coronary artery calcifications are present. Patient appears to status post CABG. CT/CT angio head neck stroke IMPRESSION: 1. Diminutive left vertebral artery with focal occlusion versus severe stenosis at the level of C6. The vessel also appears narrowed at the levels of C4 and C5. Additional luminal irregularity of the intradural left vertebral artery. 2. Calcification at the origins of the bilateral internal carotid arteries which appears to result in approximately 50% luminal narrowing. 3. No large vessel occlusion or significant stenosis in the anterior intracranial circulation. 4. No acute intracranial findings. Chronic small vessel ischemic disease and volume loss. This stroke protocol result was discussed with Dr. Morgan on 08/12/2022 4:17 AM.
--- NOTE | ~2022-08-12 | CT_ITS ---
EXAMINATION: CT HEAD WITHOUT CONTRAST (STROKE PROTOCOL) INDICATION INFORMATION: Dysarthria COMPARISON: 05/13/2022 TECHNIQUE: Noncontrast CT of the head was performed. DLP: 601 mGy-cm DOSE LOWERING TECHNIQUES: This CT examination was performed using dose optimization techniques as appropriate, variously including the following: - Automated exposure control - Adjustment of mA and/or kV according to patient size (this includes techniques or standardized protocols for targeted exams were dose is matched to indication/reason for exam; i.e. extremities or head) - Use of iterative reconstruction technique FINDINGS: There is no evidence of acute intracranial hemorrhage or territorial infarction. No abnormal mass-effect or midline shift is seen. Montoya to white matter differentiation is well preserved. No extra-axial fluid collections are identified. The ventricles are normal in size. There is mild periventricular white matter hypoattenuation consistent with chronic small vessel ischemic disease. Redemonstrated chronic lacunar infarct along the right internal capsule. Mild volume loss is noted. The osseous structures and soft tissues are normal. The mastoid air cells and visualized portions of the paranasal sinuses are well-aerated. CT/CT head for stroke IMPRESSION: No acute intracranial findings. Chronic appearing changes as noted above. This stroke protocol result was discussed with Dr. Morgan on 08/12/2022 3:37 AM.
--- NOTE | ~2022-08-12 | MR_ITS ---
EXAMINATION: MRI BRAIN WITHOUT CONTRAST CLINICAL INFORMATION: Transient ischemic attack. Question encephalopathy. COMPARISON: CT angiogram head and neck 08/12/2022. TECHNIQUE: Multiplanar MR imaging of the brain was performed without contrast. FINDINGS: There is a chronic right striatocapsular lacunar infarct and numerous foci of T2 FLAIR signal hyperintensity primarily involving the periventricular white matter that most likely represent a chronic manifestation of small vessel ischemia. No acute territorial infarct. No pathological magnetic susceptibility artifact. Intracranial vascular flow voids are grossly maintained. There is no intracranial mass effect or midline shift. No abnormal extra-axial collection. Lateral and third ventricles are normal. No hydrocephalus. Midline structures including the cervicomedullary junction are normal. No acute bone marrow signal changes. There is a trace left mastoid tip effusion. Mild to moderate paranasal sinus disease primarily affecting the ethmoid air cells. Globes and orbits are symmetric. MR/MR head/brain wo con IMPRESSION: There is a chronic right striatocapsular lacunar infarct and numerous chronic small vessel ischemic changes primarily involving the periventricular white matter. No evidence of acute territorial infarct or hemorrhage.
--- NOTE | ~2022-08-12 | US_ITS ---
EXAMINATION: US EXTRACRANIAL CAROTID DUPLEX, BILATERAL CLINICAL INFORMATION: Carotid stenosis, transient ischemic attack COMPARISON: CTA from 08/12/2022 TECHNIQUE: Real-time ultrasound and Doppler techniques (integrating B-mode 2-D vascular images, Doppler spectral analysis and color-flow Doppler imaging) were utilized to interrogate the extracranial carotid arteries, the vertebral arteries and proximal subclavian arteries bilaterally. The degree of stenosis is determined by criteria similar to NASCET. FINDINGS: Right Side: 1. There is mild calcified atherosclerotic plaque seen in the bifurcation/proximal ICA region. 2. The common carotid artery PSV proximally is 76.4 cm/s and distally 61.9 cm/s. 3. The proximal internal carotid artery velocities are 102 cm/s systolic and 29.6 cm/s diastolic. 4. The proximal external carotid artery PSV is 98.8 cm/s. 5. The vertebral artery shows antegrade flow. 6. The subclavian artery waveforms are normal. Left Side: 1. There is mild calcified atherosclerotic plaque seen in the bifurcation/proximal ICA region. 2. The common carotid artery PSV proximally is 63.9 cm/s and distally 60.4 cm/s. 3. The proximal internal carotid artery velocities are 85.6 cm/s systolic and 27.4 cm/s diastolic. 4. The proximal external carotid artery PSV is 106 cm/s. 5. The vertebral artery shows antegrade flow. Velocity in the proximal segment measures 136 cm/s. Velocity in the distal segment measures 14.7 cm/s 6. The subclavian artery waveforms are normal. US/US carotid duplex BI IMPRESSION: 1. RIGHT: Minimal, non-hemodynamically significant stenosis of the proximal right internal carotid artery corresponding to a 0-49% stenosis by velocity criteria. 2. LEFT: Minimal, non-hemodynamically significant stenosis of the proximal left internal carotid artery corresponding to a 0-49% stenosis by velocity criteria. 3. Antegrade flow is seen within the bilateral vertebral arteries. There is elevated velocity in the proximal left vertebral artery in comparison to the distal segment which could represent underlying stenosis. No evidence of occlusion
--- NOTE | 2022-08-12 03:23 | ECG_ITS ---
Test Reason : SKOKE Blood Pressure : / mmHG Vent. Rate : 065 BPM Atrial Rate : 065 BPM P-R Int : 194 ms QRS Dur : 106 ms QT Int : 466 ms P-R-T Axes : 037 208 042 degrees QTc Int : 484 ms Normal sinus rhythm Possible Anterior infarct (cited on or before 31-JUL-2022) Abnormal ECG When compared with ECG of 31-JUL-2022 23:31, Questionable change in initial forces of Anterior leads Referred By: Jane Morgan Electronically Signed By:SULMA DUFF
[2022-08-12 03:25] LABS: Prothrombin Time Whole Bld POC 14.3 sec (11.1-13.5); ~PT, ~INR - Anti Coag Clinic 1.2 (0.9-1.1)
[2022-08-12 03:25] LABS: Glucose, Whole Blood 164 mg/dL (60-115)
--- NOTE | 2022-08-12 03:25 | ED_ITS ---
HPI - Neuro Symptoms/Deficit General Chief Complaint: Stroke Stated Complaint: AMS Time Seen by Provider: 08/12/22 03:22 Source: patient and EMS Mode of arrival: EMS Limitations: no limitations History of Present Illness HPI Narrative: Patient comes to the Emergency via EMS. Patient is lethargic, confused. EMS st ates that the patient was last seen alert and oriented x3 approximately at 02:00, 1-1/2 hours ago. At 03:00, 25 minutes ago, patient's noticed that the patient was not in bed, went to look for her. Patient was sitting in the chair at the kitchen table. She seemed very confused. EMS was called for diabetic emergency. When EMS called, patient's glucose was 160. Patient still remained confused. EMS concern the patient had dysarthria. Patient is very lethargic but still able to speak, patient is [place]ian-speaking only, states that her sugar was very low, started eating, and after eating her blood glucose was 42. By the time EMS arrived, it was 160. However, patient seems to be very confused, unclear if her history is accurate. Related Data Home Medications Medication Instructions Recorded Confirmed aspirin 81 mg tablet,delayed mg 08/01/22 release cilostazol 100 mg tablet mg 08/01/22 clopidogrel 75 mg tablet mg 08/01/22 duloxetine 60 mg capsule,delayed mg PO 08/01/22 release ezetimibe 10 mg tablet mg 08/01/22 gabapentin 600 mg tablet mg 08/01/22 lisinopril 40 mg tablet mg 08/01/22 metformin 1,000 mg tablet mg 08/01/22 metformin 1,000 mg tablet mg 08/01/22 metoprolol tartrate 100 mg tablet mg 08/01/22 omeprazole 20 mg capsule,delayed mg 08/01/22 release ranolazine 1,000 mg mg PO 08/01/22 tablet,extended release,12 hr rivaroxaban 2.5 mg tablet (Xarelto) mg 08/01/22 zolpidem 10 mg tablet mg 08/01/22 Previous Rx's Medication Instructions Recorded oxycodone 5 mg tablet 5 mg PO Q8H PRN pain #7 tabs 05/14/21 walker #1 ea 05/22/21 Allergies Allergy/AdvReac Type Severity Reaction Status Date / Time apple [Apple] Allergy Unknown APPLE PEEL Verified 08/02/21 14:02 - ITCHY THROAT nut - unspecified [nut] Allergy Unknown ITCHY Verified 08/02/21 14:02 THROAT pineapple [Pineapple] Allergy Unknown ITCHY Verified 08/02/21 14:02 THROAT acetaminophen [From Percocet] Allergy Anxiety Verified 07/31/22 23:22 oxycodone [From Percocet] Allergy Anxiety Verified 07/31/22 23:22 DUST Allergy Unknown EYES, NOSE Uncoded 05/14/21 20:07 ITCHY - ASTHMA GRASS Allergy Unknown ITCHY EYES Uncoded 05/14/21 20:07 - THROAT Review of Systems Review of Systems: Patient complaining of low blood glucose, unable to give any history, patient confused and lethargic Yes Unobtainable due to mental condition PMFSH Past Medical History Medical History Diabetes Hypertension Social History Social History Alcohol intake: current Alcohol intake frequency: holidays/special occasions only Advance Directives: No Physical Exam Vital Signs: Vital Signs: Last Vital Signs Temp 98.7 F 08/12/22 05:28 Pulse 65 08/12/22 05:28 Resp 12 08/12/22 05:28 BP 153/63 H 08/12/22 05:28 Pulse Ox 100 08/12/22 05:28 O2 Del Method 08/12/22 05:28 BMI result Body Mass Index 29.9 Const: Other: Appearance: Alert. Oriented X2, lethargic Eyes: Pupils equal, round and reactive to light. ENT: Pharynx normal. Neck: Normal inspection. Neck supple. No lymph nodes noted. No crepitus CVS: Normal heart rate and rhythm. Pulses normal. Normal S1 and S2 Respiratory: No respiratory distress. Breath sounds normal. No Wheezing. No rales Abdomen: Soft and nontender. No rigidity. No distention. Skin: Skin warm and dry. Normal skin color. Normal skin turgor. Extremities: No lower extremity edema. No Lacerations. No Rash Neuro: Oriented x2, moves all extremities, however patient has significant general weakness Psych: calm, cooperative, normal affect Course Course Course Narrative: -patient has a bit of a patient dysarthria, seems to be intermittent. Overall, patient seems to be fairly lethargic but still able to answer questions. -I do not appreciate any specific motor dysfunction -head CT per [facility] is negative -head and neck CTA pending Medications Administered Discontinued Medications Generic Name Dose Route Start Last Admin Trade Name Eneida PRN Reason Stop Dose Admin Iohexol 70 ml 08/12/22 03:59 08/12/22 04:00 Iohexol 350 Mg/Ml 100 Ml Infus..Btl IV 08/12/22 04:00 70 ml ONCE ONE Administration Medical Decision Making Medical Decision Making [facility] Narrative: After patient came out of the CT scan, patient was talking full sentences, no dysarthria, no aphasia, still confused, moving all extremities, NIH 0 Patient's white blood cell count 13.1, no source of infection suspected yet. May be reactive leukocytosis. -potassium mildly elevated, at this time, no treatment indicated -urine shows trace leukocyte esterase. Patient does not have any UTI symptoms. -at this time, patient is awake, alert and oriented x3. However, patient sometimes speaks to herself. Sometimes answers questions inappropriately. No dysarthria, no aphasia. -CTA suspicious for diminutive left vertebral artery focal occlusion versus severe stenosis at the level of C6. -it is possible that patient may have had a TIA? Patient will likely need vascular surgery consult I discussed the patient with Dr. Romero, patient being admitted Differential Diagnosis Differential Diagnoses: The differential diagnosis associated with the presentation includes (UTI, encephalopathy, CVA, TIA) Admission/Observation Consideration of admission/observation: Escalation of care including admission/observation considered Consult Healthcare Provider Management of the patient was discussed with: Hospitalist Lab Data [facility] Lab Attestation statement: I reviewed the patient's lab results. 08/12/22 04:13 08/12/22 04:13 Labs: Lab Results 08/12/22 08/12/22 08/12/22 Range/Units 03:17 03:19 04:13 WBC 13.1 H (4.8-10.8) X10*3/uL RBC 3.86 L (4.20-5.50) X10*6/uL Hgb 11.1 L (12.0-16.0) g/dl Hct 33.3 L (37.0-47.0) % MCV 86.3 (80.0-98.0) fL MCH 28.8 (27.0-33.0) pg MCHC 33.3 (31.0-35.0) g/dl RDW 13.2 (11.0-16.0) % Plt Count 217 (160-400) X10*3/uL MPV 10.5 (9.4-12.3) fL Immature Gran % (Auto) 0.4 (0.0-0.4) % Neut % (Auto) 76.3 H (45-73) % Lymph % (Auto) 13.4 L (20-40) % [place] % (Auto) 5.9 (2-11) % Eos % (Auto) 3.6 (0-4) % Baso % (Auto) 0.4 (0-2) % Lymph # (Auto) 1.8 (1.2-4.9) X10*3/uL [place] # (Auto) 0.8 (0.1-1.2) X10*3/uL Eos # (Auto) 0.5 H (0.0-0.4) X10*3/uL Baso # (Auto) 0.1 (0.0-0.2) X10*3/uL Abs Immat Gran (auto) 0.05 H (0.00-0.03) X10*3/uL Absolute Neuts (auto) 10.0 H (2.0-8.3) x10*3/uL Absolute Nucleated RBC 0.000 (0.0-0.012) X10*3/uL Nucleated RBC % (auto) 0.0 (0.0-0.2) /100WBC Whole Blood PT 14.3 H (11.1-13.5) sec Whole Blood INR 1.2 H (0.9-1.1) Sodium (135-145) mmol/L Potassium (3.3-5.1) mmol/L Chloride (96-108) mmol/L Carbon Dioxide (22-29) mmol/L Anion Gap (12-20) BUN (9-16) mg/dL Creatinine (0.5-1.4) mg/dL Estim Creat Clear Calc Estimated GFR POC Glucose 164 H (60-115) mg/dL Random Glucose (60-115) mg/dL Calcium (8.4-10.2) mg/dL Magnesium (1.6-2.6) mg/dL Total Bilirubin (0.0-1.0) mg/dL Direct Bilirubin (0.0-0.5) mg/dL AST (5-31) U/L ALT (0-31) U/L Alkaline Phosphatase (39-117) U/L Troponin I High Sens (<3.5-17.0) ng/L Total Protein (6.5-8.0) g/dL Albumin (3.5-5.0) g/dL Urine Color Urine Appearance Urine pH (5.0-9.0) Ur Specific [place] (1.005-1.025) Urine Protein (Neg-Trace) mg/dL Urine Glucose (UA) (Negative) mg/dL Urine Ketones (Negative) mg/dL Urine Blood (Negative) Urine Nitrite (Negative) Ur Leukocyte Esterase (Negative) Urine RBC (0-2) /HPF Urine WBC (0-5) /HPF Ur Squamous Epith Cells (0-2) /HPF Urine Bacteria (None Seen) Hyaline Casts (0-2) /LPF Ethyl Alcohol mg/dL COVID-19 ([facility]UKA) (Negative) COVID-19 Clin Com 08/12/22 08/12/22 08/12/22 Range/Units 04:13 04:13 04:13 WBC (4.8-10.8) X10*3/uL RBC (4.20-5.50) X10*6/uL Hgb (12.0-16.0) g/dl Hct (37.0-47.0) % MCV (80.0-98.0) fL MCH (27.0-33.0) pg MCHC (31.0-35.0) g/dl RDW (11.0-16.0) % Plt Count (160-400) X10*3/uL MPV (9.4-12.3) fL Immature Gran % (Auto) (0.0-0.4) % Neut % (Auto) (45-73) % Lymph % (Auto) (20-40) % [place] % (Auto) (2-11) % Eos % (Auto) (0-4) % Baso % (Auto) (0-2) % Lymph # (Auto) (1.2-4.9) X10*3/uL [place] # (Auto) (0.1-1.2) X10*3/uL Eos # (Auto) (0.0-0.4) X10*3/uL Baso # (Auto) (0.0-0.2) X10*3/uL Abs Immat Gran (auto) (0.00-0.03) X10*3/uL Absolute Neuts (auto) (2.0-8.3) x10*3/uL Absolute Nucleated RBC (0.0-0.012) X10*3/uL Nucleated RBC % (auto) (0.0-0.2) /100WBC Whole Blood PT (11.1-13.5) sec Whole Blood INR (0.9-1.1) Sodium 139 (135-145) mmol/L Potassium 5.3 H D (3.3-5.1) mmol/L Chloride 107 (96-108) mmol/L Carbon Dioxide 22 (22-29) mmol/L Anion Gap 15 (12-20) BUN 12 (9-16) mg/dL Creatinine 0.85 (0.5-1.4) mg/dL Estim Creat Clear Calc 73.4 Estimated GFR > 60 POC Glucose (60-115) mg/dL Random Glucose 197 H (60-115) mg/dL Calcium 8.2 L D (8.4-10.2) mg/dL Magnesium 1.5 L (1.6-2.6) mg/dL Total Bilirubin 0.3 (0.0-1.0) mg/dL Direct Bilirubin < 0.2 (0.0-0.5) mg/dL AST 19 (5-31) U/L ALT 15 (0-31) U/L Alkaline Phosphatase 52 (39-117) U/L Troponin I High Sens 3.6 D (<3.5-17.0) ng/L Total Protein 5.8 L (6.5-8.0) g/dL Albumin 3.2 L (3.5-5.0) g/dL Urine Color Urine Appearance Urine pH (5.0-9.0) Ur Specific [place] (1.005-1.025) Urine Protein (Neg-Trace) mg/dL Urine Glucose (UA) (Negative) mg/dL Urine Ketones (Negative) mg/dL Urine Blood (Negative) Urine Nitrite (Negative) Ur Leukocyte Esterase (Negative) Urine RBC (0-2) /HPF Urine WBC (0-5) /HPF Ur Squamous Epith Cells (0-2) /HPF Urine Bacteria (None Seen) Hyaline Casts (0-2) /LPF Ethyl Alcohol mg/dL COVID-19 (RENKUA) Negative (Negative) COVID-19 Clin Com See Note 08/12/22 08/12/22 Range/Units 04:13 05:21 WBC (4.8-10.8) X10*3/uL RBC (4.20-5.50) X10*6/uL Hgb (12.0-16.0) g/dl Hct (37.0-47.0) % MCV (80.0-98.0) fL MCH (27.0-33.0) pg MCHC (31.0-35.0) g/dl RDW (11.0-16.0) % Plt Count (160-400) X10*3/uL MPV (9.4-12.3) fL Immature Gran % (Auto) (0.0-0.4) % Neut % (Auto) (45-73) % Lymph % (Auto) (20-40) % [place] % (Auto) (2-11) % Eos % (Auto) (0-4) % Baso % (Auto) (0-2) % Lymph # (Auto) (1.2-4.9) X10*3/uL [place] # (Auto) (0.1-1.2) X10*3/uL Eos # (Auto) (0.0-0.4) X10*3/uL Baso # (Auto) (0.0-0.2) X10*3/uL Abs Immat Gran (auto) (0.00-0.03) X10*3/uL Absolute Neuts (auto) (2.0-8.3) x10*3/uL Absolute Nucleated RBC (0.0-0.012) X10*3/uL Nucleated RBC % (auto) (0.0-0.2) /100WBC Whole Blood PT (11.1-13.5) sec Whole Blood INR (0.9-1.1) Sodium (135-145) mmol/L Potassium (3.3-5.1) mmol/L Chloride (96-108) mmol/L Carbon Dioxide (22-29) mmol/L Anion Gap (12-20) BUN (9-16) mg/dL Creatinine (0.5-1.4) mg/dL Estim Creat Clear Calc Estimated GFR POC Glucose (60-115) mg/dL Random Glucose (60-115) mg/dL Calcium (8.4-10.2) mg/dL Magnesium (1.6-2.6) mg/dL Total Bilirubin (0.0-1.0) mg/dL Direct Bilirubin (0.0-0.5) mg/dL AST (5-31) U/L ALT (0-31) U/L Alkaline Phosphatase (39-117) U/L Troponin I High Sens (<3.5-17.0) ng/L Total Protein (6.5-8.0) g/dL Albumin (3.5-5.0) g/dL Urine Color Yellow Urine Appearance Clear Urine pH 7.0 (5.0-9.0) Ur Specific [place] >= 1.030 H (1.005-1.025) Urine Protein Negative (Neg-Trace) mg/dL Urine Glucose (UA) 500 H (Negative) mg/dL Urine Ketones Negative (Negative) mg/dL Urine Blood Negative (Negative) Urine Nitrite Negative (Negative) Ur Leukocyte Esterase Trace H (Negative) Urine RBC 0-2 (0-2) /HPF Urine WBC 0-5 (0-5) /HPF Ur Squamous Epith Cells 3-5 (0-2) /HPF Urine Bacteria 1+ (None Seen) Hyaline Casts 0-2 (0-2) /LPF Ethyl Alcohol < 10 mg/dL COVID-19 ([facility]) (Negative) COVID-19 Clin Com Radiology Impression Discussion of test interpretation with radiology: I have reviewed the radiologist's reading. Radiologist Impression: Neck CTA: There is common origin of the brachiocephalic and left common carotid arteries off the aortic arch. Scattered calcification of the visualized thoracic aorta. No significant stenosis at the branch origins. The right vertebral artery is widely patent. The left vertebral artery is diminutive. There appears to be focal occlusion versus severe stenosis of the left vertebral artery at the level of C6; the vessel also appears narrowed at the levels of C4 and C5. There is calcification at the origins of the bilateral internal carotid arteries which appears to up to approximately 50% luminal narrowing. Remainder of the bilateral common and internal carotid arteries are widely patent. Brain CTA: There is scattered calcification along the right intradural vertebral artery which appears mildly narrowed. The intradural left vertebral artery is significantly diminutive proximal calcification and multifocal irregularity along the vessel. The basilar and superior cerebellar arteries are patent. There is origin of the right posterior cerebral artery. Bilateral posterior cerebral arteries otherwise appear unremarkable and well opacified. Normal appearance of the intradural internal carotid arteries without focal stenosis. Normal appearance of the anterior cerebral and middle cerebral arteries without focal occlusion or stenosis. Normal anterior communicating artery. Normal arborization of the middle cerebral arteries. CT Head: No intracranial mass, hemorrhage, extra-axial collection, or midline shift. The saunders-white matter differentiation is preserved. There is mild periventricular white matter hypoattenuation consistent with chronic small vessel ischemic disease. Mild volume loss is noted. No pathologic intra-axial enhancement or regional oligemia. No hydrocephalus. The mastoid air cells and paranasal sinuses remain well aerated. CT Neck: The thyroid gland and remaining cervical soft tissues are normal in appearance. There is left-sided facet arthropathy in the cervical spine. Upper Chest: No acute abnormalities in the visualized lung apices or upper mediastinum. Coronary artery calcifications are present. Patient appears to status post CABG. CT/CT angio head? neck stroke IMPRESSION: 1.? Diminutive left vertebral artery with focal occlusion versus severe stenosis at the level of C6. The vessel also appears narrowed at the levels of C4 and C5. Additional luminal irregularity of the intradural left vertebral artery. 2.? Calcification at the origins of the bilateral internal carotid arteries which appears to result in approximately 50% luminal narrowing. 3.? No large vessel occlusion or significant stenosis in the anterior intracranial circulation. 4.? No acute intracranial findings. Chronic small vessel ischemic disease and volume loss. NIH Stroke Scale Level of Consciousness: Not Alert; but arousable by minor stimulation Level of Consciousness Questions: Answers both questions correctly Level of Consciousness Commands: Performs both tasks correctly Best Gaze: Normal Visual: No visual loss Facial Palsy: Normal Motor Arm (Right): No drift Motor Arm (Left): No drift Motor Leg (Right): No drift Motor Leg (Left): No drift Limb Ataxia: Absent Sensory: Normal Best Language: Mild to moderate aphasia Dysarthia: Mild to moderate dysarthria Extinction and Inattention: No abnormality Score: 3 Critical Care Time Critical Care Time Critical Care Time: Yes Total Critical Care Time: 60 Attestation: I have personally provided critical care time. Time includes review of lab data, radiology results, discussion with consultants, and monitoring for potential dec ompensation. Intervention performed as documented. Discharge Plan Discharge Clinical Impression: Altered mental status, Brain TIA Patient Disposition: Admitted As Inpatient Prescriptions: No Action oxycodone 5 mg tablet 5 mg PO Q8H PRN (Reason: pain) Qty: 7 0RF Rx Instructions: calcaneus fracture cilostazol 100 mg tablet gabapentin 600 mg tablet metoprolol tartrate 100 mg tablet clopidogrel 75 mg tablet aspirin 81 mg tablet,delayed release (DR/EC) metformin 1,000 mg tablet metformin 1,000 mg tablet omeprazole 20 mg capsule,delayed release(DR/EC) zolpidem 10 mg tablet lisinopril 40 mg tablet ezetimibe 10 mg tablet duloxetine 60 mg capsule,delayed release(DR/EC) PO ranolazine 1,000 mg tablet extended release 12 hr PO Xarelto 2.5 mg tablet (DME) walker Misc See Rx Instructions .MEDSUPPLY Qty: 1 0RF Rx Instructions: walker with seat and brakes
--- NOTE | 2022-08-12 03:26 | PC.NURSE ---
Pt direct to CT from EMS stretcher per request MD Cathy
[2022-08-12] MEDS: iohexoL 350 MG/ML 100 ML INFUS..BTL 70 ML IV (04:00)
[2022-08-12 04:17] LABS: Basophils Absolute Auto 0.1 X10*3/uL (0.0-0.2); Basophils Percent Auto 0.4 % (0-2); Eosinophils Absolute Auto 0.5 X10*3/uL (0.0-0.4); Eosinophils Percent Auto 3.6 % (0-4); Hematocrit 33.3 % (37.0-47.0); Hemoglobin 11.1 g/dl (12.0-16.0); Imm Gran Abs Auto 0.05 X10*3/uL (0.00-0.03); Imm Gran Pct Auto 0.4 % (0.0-0.4); Lymphocytes Absolute Auto 1.8 X10*3/uL (1.2-4.9); Lymphocytes Percent Auto 13.4 % (20-40); MANUAL DIFF FLAG NO; Mean Corpuscular HGB Conc 33.3 g/dl (31.0-35.0); Mean Corpuscular Hemoglobin 28.8 pg (27.0-33.0); Mean Corpuscular Volume 86.3 fL (80.0-98.0); Mean Platelet Volume 10.5 fL (9.4-12.3); Monocytes Absolute Auto 0.8 X10*3/uL (0.1-1.2); Monocytes Percent Auto 5.9 % (2-11); Neutrophils Percent Auto 76.3 % (45-73); Platelet Count 217 X10*3/uL (160-400); Red Blood Count 3.86 X10*6/uL (4.20-5.50); Red Cell Distribution Width 13.2 % (11.0-16.0); White Blood Count 13.1 X10*3/uL (4.8-10.8)
[2022-08-12 04:34] LABS: COVID-19 Test Negative (Negative); IDNOW Serial# 6674DD1D
[2022-08-12 04:37] LABS: Ethanol < 10 mg/dL
[2022-08-12 04:42] LABS: Troponin-I High Sensitivity 3.6 ng/L (<3.5-17.0)
[2022-08-12 04:49] LABS: Alanine Aminotransferase 15 U/L (0-31); Albumin Level 3.2 g/dL (3.5-5.0); Alkaline Phosphatase 52 U/L (39-117); Anion Gap 15 (12-20); Aspartate Amino Transferase 19 U/L (5-31); Bilirubin Direct < 0.2 mg/dL (0.0-0.5); Bilirubin Total 0.3 mg/dL (0.0-1.0); Blood Urea Nitrogen 12 mg/dL (9-16); Calcium 8.2 mg/dL (8.4-10.2); Carbon Dioxide 22 mmol/L (22-29); Chloride 107 mmol/L (96-108); Creatinine Clr Calc Pharmacy 73.4; Estimated Glomerular Filt Rate > 60; Glucose Random 197 mg/dL (60-115); Magnesium 1.5 mg/dL (1.6-2.6); Potassium 5.3 mmol/L (3.3-5.1); Sodium 139 mmol/L (135-145); Total Protein 5.8 g/dL (6.5-8.0)
--- NOTE | 2022-08-12 05:23 | PC.NURSE ---
late entry- pt brought to ed [address] blood work obtained urine sample obtained. pt changed into hospital gown. ekg obtained. pt placed on lacquerer. pt brother at bedside at this time
[2022-08-12 05:26] LABS: Appearance Urine Clear; Color Urine Yellow; Glucose Urine UA 500 mg/dL (Negative); Leukocyte Esterase Urine Trace (Negative); Nitrite Urine Negative (Negative); Specific Gravity - Urine >= 1.030 (1.005-1.025); UMIC TRIGGER UACC YES; Urine Blood Negative (Negative); Urine Ketones Negative (Negative); Urine Protein Negative (Neg-Trace)
[2022-08-12 05:31] LABS: Bacteria Urine 1+ (None Seen); Hyaline Casts Urine 0-2 /LPF (0-2); RBC Urine 0-2 /HPF (0-2); WBC Urine 0-5 /HPF (0-5)
[2022-08-12 05:39] LABS: Amphetamine Screen Urine Not Detected (Not Detect); Barbiturates, Urine Not Detected (Not Detect); Benzodiazepines Screen Urine Not Detected (Not Detect); Cannabinoid Screen Urine Not Detected (Not Detect); Cocaine Screen Urine Not Detected (Not Detect); Fentanyl, urine Not Detected (Not Detect); Opiate Screen Urine Not Detected (Not Detect); Phencyclidine Screen Urine Not Detected (Not Detect)
--- NOTE | 2022-08-12 06:21 | PC.NURSE ---
dr bai hospitalist accepted pt as admitted pt. pharmacy contacted for med rec to be completed
--- NOTE | 2022-08-12 06:43 | PM.IMHP ---
History of Present Illness Date of Service: 08/12/22 Chief Complaint: Altered mental status This is a 61-year-old female with past medical history of diabetes, hypertension, coronary artery disease status post CABG per patient, neuropathy, peripheral vascular disease, presents the hospital with complaints of altered mental status. Patient is alert, oriented to self and place but not time. Patient is brought in by EMS, brother at bedside give some of the history. According to the brother she went to bed early yesterday and woke up at a p.m. not oriented to time or date. She then stayed up, and the to a.m. became more and more confused. She seemed to have had trouble finding words, very weak, unable to stand, he sat her down, they checked her sugar which was 40. She a some sugar tablet as well as some candy, by the time EMS arrived her sugars were in the 140s. She reports the headache, no blurry or double vision, no weakness numbness or tingling in arms or legs. Has chronic neuropathy. Patient reports intermittent chest pain on exertion, as well as shortness of breath, not present at this time, reports no abdominal pain nausea or vomiting, no diarrhea constipation, no urinary symptoms and no lower extremity edema. On arrival to the ED patient hemodynamically stable with an elevated blood pressure Labs are significant for WBC of 13.1, INR of 1.2, potassium 5.3, Mag of 1.5, UA positive for leukocyte Estrace, UDS negative Review of Systems Review of Systems: Yes all other systems are reviewed and are negative [facility] Medical History Coronary artery disease Diabetes Hypertension Neuropathy Peripheral vascular disease Surgical History History of angioplasty of peripheral vessel Status post aorto-coronary artery bypass graft Social History Alcohol intake: current Alcohol intake frequency: a few times a week Smoked in Last 30 Days: No Use of substances other than those prescribed or required for medical reasons: No Advance Directives: No Patient : No Meds Allergies Allergy/AdvReac Type Severity Reaction Status Date / Time apple [Apple] Allergy Unknown APPLE PEEL Verified 08/02/21 14:02 - ITCHY THROAT nut - unspecified [nut] Allergy Unknown ITCHY Verified 08/02/21 14:02 THROAT pineapple [Pineapple] Allergy Unknown ITCHY Verified 08/02/21 14:02 THROAT acetaminophen [From Percocet] Allergy Anxiety Verified 07/31/22 23:22 oxycodone [From Percocet] Allergy Anxiety Verified 07/31/22 23:22 DUST Allergy Unknown EYES, NOSE Uncoded 05/14/21 20:07 ITCHY - ASTHMA GRASS Allergy Unknown ITCHY EYES Uncoded 05/14/21 20:07 - THROAT Active Medications: Current Medications Aspirin (Aspirin Enteric Coated 81 Mg Tablet.Dr) 81 mg PO DAILY AILIN Docusate Sodium (Docusate Sodium 100 Mg Capsule) 100 mg PO DAILY PRN PRN Reason: Constipation Enoxaparin Sodium (Enoxaparin Sodium 40 Mg/0.4 Ml Syringe) 40 mg SUBCUT Q24H AILIN Ondansetron HCl (Ondansetron Hcl 4 Mg/2 Ml Vial) 4 mg IVPUSH Q8H PRN PRN Reason: Nausea and Vomiting Sodium Chloride (0.9 % Sodium Chloride Flush 3 Ml Syringe) 3 [facility] Medications Medication Instructions Recorded Confirmed Last Taken Type aspirin 81 mg tablet,delayed mg 08/01/22 08/01/22 History release cilostazol 100 mg tablet mg 08/01/22 08/01/22 History clopidogrel 75 mg tablet mg 08/01/22 07/31/22 History duloxetine 60 mg capsule,delayed mg PO 08/01/22 07/31/22 History release ezetimibe 10 mg tablet mg 08/01/22 07/31/22 History gabapentin 600 mg tablet mg 08/01/22 07/31/22 History lisinopril 40 mg tablet mg 08/01/22 07/31/22 History metformin 1,000 mg tablet mg 08/01/22 07/31/22 History metformin 1,000 mg tablet mg 08/01/22 07/31/22 History metoprolol tartrate 100 mg tablet mg 08/01/22 07/31/22 History omeprazole 20 mg capsule,delayed mg 08/01/22 07/31/22 History release ranolazine 1,000 mg mg PO 08/01/22 07/31/22 History tablet,extended release,12 hr rivaroxaban 2.5 mg tablet (Xarelto) mg 08/01/22 07/31/22 History zolpidem 10 mg tablet mg 08/01/22 07/31/22 History Physical Exam Vital Signs and Narrative: Vital Signs: Last Vital Signs Temp 98.7 F 08/12/22 05:28 Pulse 65 08/12/22 05:28 Resp 12 08/12/22 05:28 BP 153/63 H 08/12/22 05:28 Pulse Ox 100 08/12/22 05:28 O2 Del Method 08/12/22 05:28 BMI result Body Mass Index 29.9 Const: Other: Oriented to self and place but not to time or date General: cooperative and no acute distress Eyes: General: appearance normal, both eyes and all related structures Resp: Effort & Inspection: normal respiratory effort Auscultation: clear to auscultation bilaterally Cardio: Rate: regular rate Rhythm: regular rhythm GI: Palpation (GI): Soft to palpation Auscultation: normal bowel sounds Skin: General skin exam: no rashes or lesions noted Neuro: Other: Has peripheral hemianopsia on the left vision Slight droop on the left face, Strength is 5/5 in all extremities Cognition (Neuro): normal cognition Extrem: General: Yes normal to inspection and Yes no pedal edema Results Labs 08/12/22 04:13 08/12/22 04:13 Labs: Laboratory Results - last 24 hr 08/12/22 08/12/22 08/12/22 03:17 03:19 04:13 MCV 86.3 MCH 28.8 MCHC 33.3 RDW 13.2 Plt Count 217 MPV 10.5 Immature Gran % (Auto) 0.4 Neut % (Auto) 76.3 H Lymph % (Auto) 13.4 L [place] % (Auto) 5.9 Eos % (Auto) 3.6 Baso % (Auto) 0.4 Lymph # (Auto) 1.8 [place] # (Auto) 0.8 Eos # (Auto) 0.5 H Baso # (Auto) 0.1 Abs Immat Gran (auto) 0.05 H Absolute Neuts (auto) 10.0 H Absolute Nucleated RBC 0.000 Nucleated RBC % (auto) 0.0 Whole Blood PT 14.3 H Whole Blood INR 1.2 H Anion Gap Estim Creat Clear Calc Estimated GFR POC Glucose 164 H Random Glucose Calcium Magnesium Total Bilirubin Direct Bilirubin AST ALT Alkaline Phosphatase Troponin I High Sens Total Protein Albumin Urine Color Urine Appearance Urine pH Ur Specific [place] Urine Protein Urine Glucose (UA) Urine Ketones Urine Blood Urine Nitrite Ur Leukocyte Esterase Urine RBC Urine WBC Ur Squamous Epith Cells Urine Bacteria Hyaline Casts Urine Opiates Screen Urine Fentanyl Screen Ur Barbiturates Screen Ur Phencyclidine Scrn Ur Amphetamines Screen U Benzodiazepines Scrn Urine Cocaine Screen U Marijuana (THC) Screen Ethyl Alcohol COVID-19 ([facility]) COVID-19 Clin Com 08/12/22 08/12/22 08/12/22 04:13 04:13 04:13 MCV MCH MCHC RDW Plt Count MPV Immature Gran % (Auto) Neut % (Auto) Lymph % (Auto) [place] % (Auto) Eos % (Auto) Baso % (Auto) Lymph # (Auto) [place] # (Auto) Eos # (Auto) Baso # (Auto) Abs Immat Gran (auto) Absolute Neuts (auto) Absolute Nucleated RBC Nucleated RBC % (auto) Whole Blood PT Whole Blood INR Anion Gap 15 Estim Creat Clear Calc 73.4 Estimated GFR > 60 POC Glucose Random Glucose 197 H Calcium 8.2 L D Magnesium 1.5 L Total Bilirubin 0.3 Direct Bilirubin < 0.2 AST 19 ALT 15 Alkaline Phosphatase 52 Troponin I High Sens 3.6 D Total Protein 5.8 L Albumin 3.2 L Urine Color Urine Appearance Urine pH Ur Specific [place] Urine Protein Urine Glucose (UA) Urine Ketones Urine Blood Urine Nitrite Ur Leukocyte Esterase Urine RBC Urine WBC Ur Squamous Epith Cells Urine Bacteria Hyaline Casts Urine Opiates Screen Urine Fentanyl Screen Ur Barbiturates Screen Ur Phencyclidine Scrn Ur Amphetamines Screen U Benzodiazepines Scrn Urine Cocaine Screen U Marijuana (THC) Screen Ethyl Alcohol COVID-19 ([facility]) Negative COVID-19 Clin Com See Note 08/12/22 08/12/22 08/12/22 04:13 05:21 05:21 MCV MCH MCHC RDW Plt Count MPV Immature Gran % (Auto) Neut % (Auto) Lymph % (Auto) [place] % (Auto) Eos % (Auto) Baso % (Auto) Lymph # (Auto) [place] # (Auto) Eos # (Auto) Baso # (Auto) Abs Immat Gran (auto) Absolute Neuts (auto) Absolute Nucleated RBC Nucleated RBC % (auto) Whole Blood PT Whole Blood INR Anion Gap Estim Creat Clear Calc Estimated GFR POC Glucose Random Glucose Calcium Magnesium Total Bilirubin Direct Bilirubin AST ALT Alkaline Phosphatase Troponin I High Sens Total Protein Albumin Urine Color Yellow Urine Appearance Clear Urine pH 7.0 Ur Specific [place] >= 1.030 H Urine Protein Negative Urine Glucose (UA) 500 H Urine Ketones Negative Urine Blood Negative Urine Nitrite Negative Ur Leukocyte Esterase Trace H Urine RBC 0-2 Urine WBC 0-5 Ur Squamous Epith Cells 3-5 Urine Bacteria 1+ Hyaline Casts 0-2 Urine Opiates Screen Not Detected Urine Fentanyl Screen Not Detected Ur Barbiturates Screen Not Detected Ur Phencyclidine Scrn Not Detected Ur Amphetamines Screen Not Detected U Benzodiazepines Scrn Not Detected Urine Cocaine Screen Not Detected U Marijuana (THC) Screen Not Detected Ethyl Alcohol < 10 COVID-19 ([facility]) COVID-19 Clin Com Imaging Radiologist's Impressions: Impressions Head CT 08/12/22 03:28 IMPRESSION: No acute intracranial findings. Chronic appearing changes as noted above. This stroke protocol result was discussed with Dr. Morgan on 08/12/2022 3:37 AM. Head/Neck CTA 08/12/22 04:00 IMPRESSION: 1. Diminutive left vertebral artery with focal occlusion versus severe stenosis at the level of C6. The vessel also appears narrowed at the levels of C4 and C5. Additional luminal irregularity of the intradural left vertebral artery. 2. Calcification at the origins of the bilateral internal carotid arteries which appears to result in approximately 50% luminal narrowing. 3. No large vessel occlusion or significant stenosis in the anterior intracranial circulation. 4. No acute intracranial findings. Chronic small vessel ischemic disease and volume loss. This stroke protocol result was discussed with Dr. Morgan on 08/12/2022 4:17 AM. Assessment and Plan (1) Encephalopathy: Status: Acute (2) CVA (cerebral vascular accident): Status: Acute Plan 61-year-old female with extensive past medical history that includes CAD, hypertension, diabetes, presents to the hospital with complaints of altered mental status # acute encephalopathy - neurogenic secondary to CVA versus toxic metabolic in the setting of hypoglycemia - patient has evidence of CVA with having apnea on the left vision slight droop of the face but she was also hypoglycemic at home which may be leading to her encephalopathy - will obtain MRI, neurology consulted -continue home aspirin and statin # CVA - patient symptoms could be secondary to CVA - she does have evidence of vertebral artery stenosis versus occlusion at the level of C6 - will obtain MRI - vascular surgery consulted - continue aspirin and high statin # diabetes - will start low-dose sliding scale insulin - diabetic diet # hypertension - elevated - allow for permissive hypertension - hold antihypertensives # hypomagnesemia - acute - replete - follow Mag level # peripheral vascular disease - continue Plavix, patient reports she is also on Xarelto for it - vascular surgery consult as above # neuropathy - continue gabapentin Patient's medication are pending at pharmacy rec Given patient's acute encephalopathy she will require minimum 2 nights inpatient hospital stay for further management and monitoring Time Spent With Patient Time: Total time managing care of this patient today ____ minutes. Quality Stroke Does the patient have a stroke diagnosis?: No VTE Prior VTE?: No VTE Risk Level:: Medical - moderate - high VTE Device Contraindication: Treatment Not Indicated VTE Drug Contraindication: N/A - Med Ordered
--- NOTE | 2022-08-12 06:48 | PC.NURSE ---
bedside swallow eval done. due to multiple swallows pt FAILED. dr bai notified. dr bai will place consult to speech
[2022-08-12 07:44] LABS: Glucose, Whole Blood 203 mg/dL (60-115)
[2022-08-12] MEDS: Magnesium Sulfate/H2O 2 GM/50 ML PIGGYBACK IV (07:47)
[2022-08-12] MEDS: cefTRIAXone sodium 1 GM in 0.9 % Sodium Chloride 50 ML IV (07:47)
--- NOTE | 2022-08-12 08:13 | ECG_ITS ---
Test Reason : SKOKE Blood Pressure : / mmHG Vent. Rate : 065 BPM Atrial Rate : 065 BPM P-R Int : 194 ms QRS Dur : 106 ms QT Int : 466 ms P-R-T Axes : 037 208 042 degrees QTc Int : 484 ms Normal sinus rhythm Right superior axis deviation Possible Anterior infarct (cited on or before 31-JUL-2022) Abnormal ECG When compared with ECG of 31-JUL-2022 23:31, QRS duration has increased Questionable change in initial forces of Anterior leads QT has lengthened Referred By: Jane Morgan Electronically Signed By:RAMY KRISHNAN MD
[2022-08-12] MEDS: Enoxaparin Sodium 40 MG/0.4 ML SYRINGE SUBCUT (09:06)
--- NOTE | 2022-08-12 09:50 | PHA.MEDREC ---
Pharmacy Consult ? Medication Reconciliation Pharmacy has completed the medication reconciliation. Patient told me that she has been taking Tresiba on a sliding scale based off her brother's insulin chart that he received from his provider (although she believes the chart was for lispro). She does not have an exact dose on how much she takes at a time, but usually takes it once a day. She also mentioned that she hasn't had a PCP in 2 years and has been getting her Tresiba from her Aunt. When I called her pharmacy, they state the last prescription was in December 2020 for 30 units daily.
--- NOTE | 2022-08-12 09:51 | PC.NURSE ---
Neuros intact. Eating now and tolerating well.
--- NOTE | 2022-08-12 10:19 | MHC.STROKE ---
Addendum entered by Francie [place], RN 08/12/22 12:30: DR. GUERRA CLARIFIED LAST KNOWN WELL TO BE EARLIER IN THE EVENING ON 08/11/22, SHE WENT TO BED EARLY ACCORDING TO THE BROTHER. DELAY IN PATIENT ARRIVAL AND UNKNOWN EXACT LAST KNOW WELL TIME IS AN ADDITONAL EXCLUSION FOR ANY THROMBOLYTICS. SEE HIS NOTE, THIS MAY NOT BE STROKE/TIA DIAGNOSIS. Original Note: 08/12/22311 EMS PRE-NOTIFIED STROKE ALERT , ARRIVED AT [facility] [place] 0312, SEEN BY PROVIDER, NIHSS = 3 FOR APHASIA/DYSARTHRIA. LKW 02:00, DISCOVERED SYMPTOMS 03:00. STROKE PROTOCOL ACTIVATED. DIRECT TO CT, CTA H/N ON EMS STRETCHER. NO BLEED, NO LVO ALTHOUGH THERE IS LEFT VERTEBRAL STENOSIS, SEE RADIOLOGY REPORT. CT DONE A T 0320, CTA DONE AT 0326. AFTER SCANS PATIENTS SYMPTOMS RESOLVED AND NIHSS = 0. INITIALLY SHE FAILED NURSING SWALLOW SCREEN AND 2 HOURS LATER SHE PASSED, NO FURTHER DYSPHAGIA NOTED ON NURSES NOTES. EXCLUDED FROM TPA-ALTEPLASE BASED ON REPEAT NIHSS = 0. I WILL CONTINUE TO FOLLOW.
--- NOTE | 2022-08-12 10:34 | P.CNNE_ITS ---
History of Present Illness Data of Consult Service Date: 08/12/22 Primary Care Provider: Unknown Physician HPI Reason for consult: Change in mental status 61-year-old female with past medical history of diabetes, hypertension, coronary artery disease status post CABG per patient, neuropathy, peripheral vascular di sease, presents the hospital with complaints of altered mental status.? Patient is alert, oriented to self and place but not time.? Patient is brought in by EMS, brother at bedside give some of the history.? According to the brother she went to bed early yesterday and woke up at a p.m. not oriented to time or date.? She then stayed up, and the to a.m. became more and more confused.? She seemed to have had trouble finding words, very weak, unable to stand, he sat her down, they checked her sugar which was 40. This morning she was feeling much better and when I arrived she was looking at her messages on her phone. There was no sign of distress. Review of Systems Review of Systems: No recent cold or flu-like illness PMFSH Past Medical History Medical History Coronary artery disease Diabetes Hypertension Neuropathy Peripheral vascular disease Surgical History Surgical History History of angioplasty of peripheral vessel Status post aorto-coronary artery bypass graft Social History Social History Alcohol intake: current Alcohol intake frequency: a few times a week Smoked in Last 30 Days: No Use of substances other than those prescribed or required for medical reasons: No Advance Directives: No Patient : No Meds Allergies Allergy/AdvReac Type Severity Reaction Status Date / Time apple [Apple] Allergy Unknown APPLE PEEL Verified 08/02/21 14:02 - ITCHY THROAT nut - unspecified [nut] Allergy Unknown ITCHY Verified 08/02/21 14:02 THROAT pineapple [Pineapple] Allergy Unknown ITCHY Verified 08/02/21 14:02 THROAT acetaminophen [From Percocet] Allergy Anxiety Verified 07/31/22 23:22 oxycodone [From Percocet] Allergy Anxiety Verified 07/31/22 23:22 DUST Allergy Unknown EYES, NOSE Uncoded 05/14/21 20:07 ITCHY - ASTHMA GRASS Allergy Unknown ITCHY EYES Uncoded 05/14/21 20:07 - THROAT Active Medications: Current Medications Aspirin (Aspirin Enteric Coated 81 Mg Tablet.Dr) 81 mg PO DAILY [facility] Last Admin: 08/12/22 09:07 Dose: Not Given Atorvastatin Calcium (Atorvastatin Calcium 80 Mg Tablet) 80 mg PO BEDTIME [facility] Last Admin: 08/12/22 08:01 Dose: Not Given Dextrose (Dextrose 50 % 25 Gm/50 Ml Syringe) 25 gm IVPUSH Q15M PRN; Protocol PRN Reason: per Hypoglycemia Standing Ord. Docusate Sodium (Docusate Sodium 100 Mg Capsule) 100 mg PO DAILY PRN PRN Reason: Constipation Enoxaparin Sodium (Enoxaparin Sodium 40 Mg/0.4 Ml Syringe) 40 mg SUBCUT Q24H [facility] Last Admin: 08/12/22 09:06 Dose: 40 mg Glucose (Glucose Gel 15 Gm Gel..Gram.) 15 gm PO Q15M PRN; Protocol PRN Reason: per Hypoglycemia Standing Ord. Ceftriaxone Sodium 1 gm/ (Sodium Chloride) 50 mls @ 100 mls/hr IV Q24H [facility] Last Infusion: 08/12/22 08:59 Dose: Infused Insulin Human Lispro (Insulin Lispro 100 Unit/Ml 3 Ml Vial) 0 unit SUBCUT QIDACHS [facility]; Protocol Last Admin: 08/12/22 08:00 Dose: Not Given Ondansetron HCl (Ondansetron Hcl 4 Mg/2 Ml Vial) 4 mg IVPUSH Q8H PRN PRN Reason: Nausea and Vomiting Pharmacy Consult (Consult Rx Perform Med Rec) 1 each MISCELLANE ONCE PRN PRN Reason: Consult order Sodium Chloride (0.9 % Sodium Chloride Flush 3 Ml Syringe) 3 ml IVFLUSH QSHIFT [facility] Last Admin: 08/12/22 09:01 Dose: Not Given Home Medications Medication Instructions Recorded Confirmed Last Taken Type albuterol sulfate 90 mcg/actuation 2 puff inhalation Q4-6H PRN 08/12/22 08/12/22 Unknown History aerosol inhaler wheezing aspirin 81 mg tablet,delayed 1 tab PO BEDTIME 08/12/22 08/12/22 08/10/22 History release cetirizine 10 mg tablet 10 mg PO BEDTIME 08/12/22 08/12/22 08/10/22 History cilostazol 100 mg tablet 1 tab PO DAILY 08/12/22 08/12/22 08/11/22 09:00 History duloxetine 60 mg capsule,delayed 1 cap PO BEDTIME 08/12/22 08/12/22 08/10/22 History release exenatide microspheres 2 mg/0.85 2 mg subcut SAEED@0900 08/12/22 08/12/22 08/05/22 History mL subcutaneous auto-injector (Inocencio Booth) ezetimibe 10 mg tablet 1 tab PO DAILY 08/12/22 08/12/22 08/11/22 09:00 History fluticasone propionate 50 1 spray intranasal DAILY 08/12/22 08/12/22 08/11/22 09:00 History mcg/actuation nasal spray,suspension gabapentin 600 mg tablet 1 tab PO TID 08/12/22 08/12/22 08/11/22 09:00 History insulin degludec 100 unit/mL See Rx Instructions .Route .COMPLEX 08/12/22 08/12/22 08/10/22 History subcutaneous solution (Tresiba U-100 Insulin) lisinopril 40 mg tablet 1 tab PO DAILY 08/12/22 08/12/22 08/11/22 09:00 History metformin 1,000 mg tablet 1 tab PO BID 08/12/22 08/12/22 08/11/22 09:00 History metoprolol tartrate 100 mg tablet 1 tab PO DAILY 08/12/22 08/12/22 08/11/22 09:00 History nitroglycerin 0.4 mg sublingual 1 tab sublingual Q5M PRN Angina 08/12/22 08/12/22 Unknown History tablet omeprazole 20 mg capsule,delayed 1 cap PO DAILY@1630 PRN Heartburn 08/12/22 08/12/22 Unknown History release ranolazine 1,000 mg 1 tab PO BID 08/12/22 08/12/22 08/11/22 09:00 History tablet,extended release,12 hr rivaroxaban 2.5 mg tablet (Xarelto) 1 tab PO BID 08/12/22 08/12/22 08/11/22 09:00 History rosuvastatin 40 mg tablet 1 tab PO BEDTIME 08/12/22 08/12/22 08/10/22 History Physical Exam Vital Signs: Vital Signs: Last Vital Signs Temp 98.3 F 08/12/22 09:50 Pulse 71 08/12/22 09:50 Resp 10 L 08/12/22 09:50 BP 158/60 H 08/12/22 09:50 Pulse Ox 97 08/12/22 09:50 O2 Del Method 08/12/22 09:08 BMI result Body Mass Index 29.9 Neuro: Other: Alert and awake with normal spontaneity of speech fluency comprehension and affect. Face was symmetrical. Visual hicks are full. Deep tendon reflexes were trace to absent with flexor plantars. [id number] testing was normal. Speech was normal. Results Labs 08/12/22 04:13 08/12/22 04:13 Labs: Short CBC 08/12/22 Range/Units 04:13 WBC 13.1 H (4.8-10.8) X10*3/uL Hgb 11.1 L (12.0-16.0) g/dl Hct 33.3 L (37.0-47.0) % Plt Count 217 (160-400) X10*3/uL BMP 08/12/22 04:13 Sodium 139 Potassium 5.3 H D Chloride 107 Carbon Dioxide 22 BUN 12 Creatinine 0.85 Calcium 8.2 L D Liver Function 08/12/22 Range/Units 04:13 Total Bilirubin 0.3 (0.0-1.0) mg/dL Direct Bilirubin < 0.2 (0.0-0.5) mg/dL AST 19 (5-31) U/L ALT 15 (0-31) U/L Alkaline Phosphatase 52 (39-117) U/L Albumin 3.2 L (3.5-5.0) g/dL Urine 08/12/22 Range/Units 05:21 Urine Color Yellow Urine Appearance Clear Urine pH 7.0 (5.0-9.0) Ur Specific [place] >= 1.030 H (1.005-1.025) Urine Protein Negative (Neg-Trace) mg/dL Urine Glucose (UA) 500 H (Negative) mg/dL Noncontrast head CT revealed minor chronic microvascular ischemic changes. CTA of brain and neck revealed mild intracranial atherosclerotic disease. Assessment and Plan (1) Encephalopathy: Status: Acute Transient encephalopathy probably related to hypoglycemia, which might be due to iatrogenic factors or infection. Differential diagnosis would also include seizure disorder. For now, my recommendation is to rule out infection and adjust her medications to avoid hypoglycemia. Otherwise no further neurological evaluation is needed. If similar episode occurs without sign of hypoglycemia, evaluation for seizure disorder can be considered. Time Spent With Patient Time: Total time managing care of this patient today ____ minutes. Procedures Date of Service Date of Service: 08/12/22
--- NOTE | 2022-08-12 11:41 | PC.NURSE ---
pt a&ox3, reports no cont'd symptoms, 1 assist for balance to bedside commode. pt pending bed assignment.
[2022-08-12 12:16] LABS: Glucose, Whole Blood 281 mg/dL (60-115)
--- NOTE | 2022-08-12 13:07 | MHC.CM.PN ---
PT REPORTS SHE LIVES WITH HER BROTHER AND NEPHEW SHE SAYS SHE IS INDEPENDENT, HAS NO DME AND NO SERVICES SHE SAYS SHE IS [place] SHE SAYS HER PCP IS AT [address], SHE DOES NOT KNOW THE NAME SHE SAYS HER DAUGHTER IS HER HCP, COPY REQUESTED IMM DELIVERED, COPY SENT TO [facility] CURRENTLY, DCP TBD PENDING PT/OT EVALS HOME VS [facility] VS REHAB TRANSPORT TBD BY DISPOSITION
--- NOTE | 2022-08-12 13:26 | PM.EVENT ---
Event Note Date of Service: 08/12/22 Event Note: Patient seen and evaluated this morning Feels much more comfortable, back to her baseline No focal weakness or numbness reported MRI negative for any acute findings Continue to monitor for hypoglycemia Will need adjustments of her medications at time of discharge Time Spent With Patient Time: Total time managing care of this patient today ____ minutes.
[2022-08-12] MEDS: Insulin Lispro 100 UNIT/ML 3 ML VIAL SUBCUT (13:33)
--- NOTE | 2022-08-12 13:40 | PC.NURSE ---
pt medicated per provider order, pt eating lunch, stroke education packet provided, ear plugs provided.
--- NOTE | 2022-08-12 16:20 | PC.NURSE ---
pt sleeping, previously reported not sleeping well - 1500 medication held to allow pt to rest.
[2022-08-12] MEDS: Gabapentin 600 MG TABLET PO ×2 (17:17→20:50)
[2022-08-12] MEDS: 0.9 % Sodium Chloride Flush 3 ML SYRINGE IVFLUSH (17:18)
--- NOTE | 2022-08-12 18:31 | PC.NURSE ---
RN-RN report called into [facility].
[2022-08-12 18:34] LABS: Glucose, Whole Blood 141 mg/dL (60-115)
[2022-08-12 20:32] LABS: Glucose, Whole Blood 95 mg/dL (60-115)
[2022-08-12] MEDS: Loratadine 10 MG TABLET PO (20:49)
[2022-08-12] MEDS: DULoxetine HCl 60 MG CAPSULE.DR PO (20:50)
[2022-08-12] MEDS: Aspirin Enteric Coated 81 MG TABLET.DR PO (20:50)
[2022-08-12] MEDS: Atorvastatin Calcium 80 MG TABLET PO (20:51)
[2022-08-12] MEDS: Ranolazine 500 MG TAB.ER.12H 1000 MG PO (22:00)
[2022-08-12 22:22] LABS: Glucose, Whole Blood 270 mg/dL (60-115)
[2022-08-12] MEDS: traZODone HCL 50 MG TABLET PO (22:29)
[2022-08-13] MEDS: 0.9 % Sodium Chloride Flush 3 ML SYRINGE IVFLUSH ×3 (01:26→15:19)
[2022-08-13 04:00] VITALS: BP 134/62; PULSE 72; RESP 18; TEMP 36.4; O2SAT 94
[2022-08-13 07:22] LABS: Hematocrit 34.7 % (37.0-47.0); Hemoglobin 11.7 g/dl (12.0-16.0); Mean Corpuscular HGB Conc 33.7 g/dl (31.0-35.0); Mean Corpuscular Hemoglobin 29.2 pg (27.0-33.0); Mean Corpuscular Volume 86.5 fL (80.0-98.0); Mean Platelet Volume 10.8 fL (9.4-12.3); Platelet Count 238 X10*3/uL (160-400); Red Blood Count 4.01 X10*6/uL (4.20-5.50); Red Cell Distribution Width 13.2 % (11.0-16.0)
[2022-08-13 07:41] LABS: Blood Urea Nitrogen 15 mg/dL (9-16); Calcium 8.8 mg/dL (8.4-10.2); Creatinine Clr Calc Pharmacy 62.3; Estimated Glomerular Filt Rate 56; Glucose Random 227 mg/dL (60-115)
[2022-08-13 07:50] LABS: Anion Gap 11 (12-20); Carbon Dioxide 29 mmol/L (22-29); Chloride 106 mmol/L (96-108); Potassium 4.5 mmol/L (3.3-5.1); Sodium 141 mmol/L (135-145)
[2022-08-13 08:00] VITALS: BP 136/61; PULSE 72; RESP 18; TEMP 36.4; O2SAT 95
[2022-08-13 08:00] LABS: Alanine Aminotransferase 12 U/L (0-31); Albumin Level 3.4 g/dL (3.5-5.0); Alkaline Phosphatase 51 U/L (39-117); Anion Gap 12 (12-20); Aspartate Amino Transferase 10 U/L (5-31); Bilirubin Total 0.4 mg/dL (0.0-1.0); Blood Urea Nitrogen 15 mg/dL (9-16); Calcium 8.9 mg/dL (8.4-10.2); Carbon Dioxide 28 mmol/L (22-29); Chloride 106 mmol/L (96-108); Cholesterol 145 mg/dL; Creatinine Clr Calc Pharmacy 61.7; Estimated Glomerular Filt Rate 56; Glucose Random 226 mg/dL (60-115); HDL Cholesterol 55 mg/dL; LDL Cholesterol Calculated 72 mg/dl; Potassium 4.5 mmol/L (3.3-5.1); Sodium 141 mmol/L (135-145); Total Protein 5.9 g/dL (6.5-8.0); Triglycerides 93 mg/dL
[2022-08-13 08:19] LABS: Glucose, Whole Blood 151 mg/dL (60-115)
[2022-08-13 08:20] VITALS: BP 136/61; PULSE 72; O2SAT 95
[2022-08-13] MEDS: cefTRIAXone sodium 1 GM in 0.9 % Sodium Chloride 50 ML IV (09:10)
[2022-08-13] MEDS: Enoxaparin Sodium 40 MG/0.4 ML SYRINGE SUBCUT (09:10)
[2022-08-13] MEDS: Aspirin Enteric Coated 81 MG TABLET.DR PO (09:11)
[2022-08-13] MEDS: lisinopriL 40 MG TABLET PO (09:11)
[2022-08-13] MEDS: cilostazoL 100 MG TABLET PO (09:11)
[2022-08-13] MEDS: Ranolazine 500 MG TAB.ER.12H 1000 MG PO (09:11)
[2022-08-13] MEDS: Metoprolol Tartrate 100 MG TABLET PO (09:11)
[2022-08-13] MEDS: Ezetimibe 10 MG TABLET PO (09:11)
[2022-08-13] MEDS: Insulin Lispro 100 UNIT/ML 3 ML VIAL SUBCUT ×2 (09:12→13:33)
[2022-08-13] MEDS: Gabapentin 600 MG TABLET PO ×2 (09:14→15:17)
[2022-08-13 11:01] LABS: Glucose, Whole Blood 303 mg/dL (60-115)
[2022-08-13 12:00] VITALS: BP 132/63; PULSE 74; RESP 18; TEMP 36.6; O2SAT 97
--- NOTE | 2022-08-13 13:24 | P.CONGS_ITS ---
History of Present Illness Consult details Consult date: 08/13/22 Reason for consult: other (Vertebral artery stenosis) Narrative: Very pleasant 61-year-old female presents for evaluation regarding vertebral artery stenosis. She had presented to the hospital with an episode of severe headache and confusion. She reports an episode of aphasia and total confusion. This was associated with a severe headache as well. She was subsequently worked up with CT angiogram and noted to have vertebral artery stenosis. She notes no prior issues in terms of her carotids. She now presents to us for vascular evaluation. Of note she does have a prior history of CVA. She is being maintained on an aspirin. Review of Systems Review of Systems: Yes all other systems are reviewed and are negative Constitutional: Constitutional: Reports no additional constitutional complaints ENT: Reports Normal hearing present Cardiovascular: Cardiovascular: Denies chest pain, Denies chest pain at rest, Denies chest pain with activity and Denies pedal edema Respiratory: Respiratory: Denies cough Gastrointestinal: Gastrointestinal: Denies abdominal pain Musculoskeletal: Musculoskeletal: Denies abnormal gait, Denies muscle cramps and Denies radiating pain into limb Integumentary/Breasts: Skin/Breast: Denies skin ulcer and Denies wounds Neurologic: Reports Normal hearing present and Denies abnormal gait Psychiatric: Psychiatric: Reports no additional psychiatric complaints PMFSH Past Medical History Medical History Coronary artery disease Diabetes Hypertension Neuropathy Peripheral vascular disease Surgical History Surgical History History of angioplasty of peripheral vessel Status post aorto-coronary artery bypass graft Social History Social History Alcohol intake: current Alcohol intake frequency: a few times a week Patient Tobacco Use Status: Never used Tobacco service: No Current occupational status: unemployed Meds Allergies Allergy/AdvReac Type Severity Reaction Status Date / Time apple [Apple] Allergy Unknown APPLE PEEL Verified 08/02/21 14:02 - ITCHY THROAT nut - unspecified [nut] Allergy Unknown ITCHY Verified 08/02/21 14:02 THROAT pineapple [Pineapple] Allergy Unknown ITCHY Verified 08/02/21 14:02 THROAT acetaminophen [From Percocet] Allergy Anxiety Verified 07/31/22 23:22 oxycodone [From Percocet] Allergy Anxiety Verified 07/31/22 23:22 DUST Allergy Unknown EYES, NOSE Uncoded 05/14/21 20:07 ITCHY - ASTHMA GRASS Allergy Unknown ITCHY EYES Uncoded 05/14/21 20:07 - THROAT Active Medications: Current Medications Albuterol Sulfate (Albuterol Sulfate 90 Mcg 8 Gm Inhaler) 2 puff INHALE Q4H PRN PRN Reason: wheezing Aspirin (Aspirin Enteric Coated 81 Mg Tablet.) 81 mg PO DAILY [facility] Last Admin: 08/13/22 09:11 Dose: 81 mg Aspirin (Aspirin Enteric Coated 81 Mg Tablet.) 81 mg PO BEDTIME [facility] Last Admin: 08/12/22 20:50 Dose: 81 mg Atorvastatin Calcium (Atorvastatin Calcium 80 Mg Tablet) 80 mg PO BEDTIME [facility] Last Admin: 08/12/22 20:51 Dose: 80 mg Cilostazol (Cilostazol 100 Mg Tablet) 100 mg PO DAILY [facility] Last Admin: 08/13/22 09:11 Dose: 100 mg Dextrose (Dextrose 50 % 25 Gm/50 Ml Syringe) 25 gm IVPUSH Q15M PRN; Protocol PRN Reason: per Hypoglycemia Standing Ord. Docusate Sodium (Docusate Sodium 100 Mg Capsule) 100 mg PO DAILY PRN PRN Reason: Constipation Duloxetine HCl (Duloxetine Hcl 60 Mg Capsule.) 60 mg PO BEDTIME [facility] Last Admin: 08/12/22 20:50 Dose: 60 mg Ezetimibe (Ezetimibe 10 Mg Tablet) 10 mg PO DAILY [facility] Last Admin: 08/13/22 09:11 Dose: 10 mg Enoxaparin Sodium (Enoxaparin Sodium 40 Mg/0.4 Ml Syringe) 40 mg SUBCUT Q24H [facility] Last Admin: 08/13/22 09:10 Dose: 40 mg Fluticasone Propionate (Fluticasone Propionate Nasal 16 Gm [place]) 1 spray NOSTRIL-B DAILY [facility] Last Admin: 08/13/22 11:30 Dose: Not Given Gabapentin (Gabapentin 600 Mg Tablet) 600 mg PO TID [facility] Last Admin: 08/13/22 09:14 Dose: 600 mg Glucose (Glucose Gel 15 Gm Gel..Gram.) 15 gm PO Q15M PRN; Protocol PRN Reason: per Hypoglycemia Standing Ord. Ceftriaxone Sodium 1 gm/ (Sodium Chloride) 50 mls @ 100 mls/hr IV Q24H [facility] Last Infusion: 08/13/22 11:31 Dose: Infused Insulin Human Lispro (Insulin Lispro 100 Unit/Ml 3 Ml Vial) 0 unit SUBCUT QIDACHS [facility]; Protocol Last Admin: 08/13/22 09:12 Dose: 2 unit Lisinopril (Lisinopril 40 Mg Tablet) 40 mg PO DAILY [facility]; Protocol Last Admin: 08/13/22 09:11 Dose: 40 mg Loratadine (Loratadine 10 Mg Tablet) 10 mg PO BEDTIME [facility] Last Admin: 08/12/22 20:49 Dose: 10 mg Metoprolol Tartrate (Metoprolol Tartrate 100 Mg Tablet) 100 mg PO DAILY [facility]; Protocol Last Admin: 08/13/22 09:11 Dose: 100 mg Nitroglycerin (Nitroglycerin 0.4 Mg Tab.Subl) 0.4 mg SUBLINGUAL Q5M PRN PRN Reason: Angina Pt Own (Xarelto 2.5 (Mg)) 2.5 mg PO BID [facility] Last Admin: 08/13/22 09:11 Dose: 2.5 mg Omeprazole (Omeprazole 20 Mg Capsule.Dr) 20 mg PO DAILY@1630 PRN PRN Reason: Heartburn Ondansetron HCl (Ondansetron Hcl 4 Mg/2 Ml Vial) 4 mg IVPUSH Q8H PRN PRN Reason: Nausea and Vomiting Pharmacy Consult (Consult Rx Perform Med Rec) 1 each MISCELLANE ONCE PRN PRN Reason: Consult order Ranolazine (Ranolazine 500 Mg Tab.Er.12h) 1,000 mg PO BID [facility] Last Admin: 08/13/22 09:11 Dose: 1,000 mg Sodium Chloride (0.9 % Sodium Chloride Flush 3 Ml Syringe) 3 ml IVFLUSH QSHIFT [facility] Last Admin: 08/13/22 09:12 Dose: 3 ml Home Medications Medication Instructions Recorded Confirmed Last Taken Type albuterol sulfate 90 mcg/actuation 2 puff inhalation Q4-6H PRN 08/12/22 08/12/22 Unknown History aerosol inhaler wheezing aspirin 81 mg tablet,delayed 1 tab PO BEDTIME 08/12/22 08/12/22 08/10/22 History release cetirizine 10 mg tablet 10 mg PO BEDTIME 08/12/22 08/12/22 08/10/22 History cilostazol 100 mg tablet 1 tab PO DAILY 08/12/22 08/12/22 08/11/22 09:00 History duloxetine 60 mg capsule,delayed 1 cap PO BEDTIME 08/12/22 08/12/22 08/10/22 History release exenatide microspheres 2 mg/0.85 2 mg subcut SAEED@0900 08/12/22 08/12/22 08/05/22 History mL subcutaneous auto-injector (Inocencio Booth) ezetimibe 10 mg tablet 1 tab PO DAILY 08/12/22 08/12/22 08/11/22 09:00 History fluticasone propionate 50 1 spray intranasal DAILY 08/12/22 08/12/22 08/11/22 09:00 History mcg/actuation nasal spray,suspension gabapentin 600 mg tablet 1 tab PO TID 08/12/22 08/12/22 08/11/22 09:00 History insulin degludec 100 unit/mL See Rx Instructions .Route .COMPLEX 08/12/22 08/12/22 08/10/22 History subcutaneous solution (Tresiba U-100 Insulin) lisinopril 40 mg tablet 1 tab PO DAILY 08/12/22 08/12/22 08/11/22 09:00 History metformin 1,000 mg tablet 1 tab PO BID 08/12/22 08/12/22 08/11/22 09:00 History metoprolol tartrate 100 mg tablet 1 tab PO DAILY 08/12/22 08/12/22 08/11/22 09:00 History nitroglycerin 0.4 mg sublingual 1 tab sublingual Q5M PRN Angina 08/12/22 08/12/22 Unknown History tablet omeprazole 20 mg capsule,delayed 1 cap PO DAILY@1630 PRN Heartburn 08/12/22 08/12/22 Unknown History release ranolazine 1,000 mg 1 tab PO BID 08/12/22 08/12/22 08/11/22 09:00 History tablet,extended release,12 hr rivaroxaban 2.5 mg tablet (Xarelto) 1 tab PO BID 08/12/22 08/12/22 08/11/22 09:00 History rosuvastatin 40 mg tablet 1 tab PO BEDTIME 08/12/22 08/12/22 08/10/22 History Physical Exam Vital Signs: Vital Signs: Last Vital Signs Temp 97.8 F 08/13/22 12:00 Pulse 74 08/13/22 12:00 Resp 18 08/13/22 12:00 BP 132/63 08/13/22 12:00 Pulse Ox 97 08/13/22 12:00 O2 Del Method 08/13/22 04:00 BMI result Body Mass Index 29.9 Const: General: cooperative, healthy appearing and comfortable Orientation/consciousness: oriented to person, oriented to place and oriented to time HEENT: Head: Yes normal to inspection Neck: Neck: Yes normal visual inspection Carotids: no bruits Chest: Chest palpation & inspection: normal inspection of the chest Resp: Effort & Inspection: normal respiratory effort and able to speak in complete sentences Auscultation: clear to auscultation bilaterally, no crackles, no rales, no rhonchi and no wheezes Cardio: Rate: regular rate Rhythm: regular rhythm Heart sounds: S1 normal heart sound present and S2 normal heart sound present Bruits: no carotid bruits Peripheral pulses: Peripheral pulses 2+ throughout GI: Inspection: Yes normal to inspection Skin: Wounds: no wounds Hair: normal Neuro: General: oriented to person, oriented to place and oriented to time Cranial nerves: Yes CN's II-XII intact bilaterally and Yes Normal hearing present Cognition (Neuro): normal cognition Motor exam (neuro): 5/5 motor strength present throughout Extrem: Other: venous exam: No significant superficial varicosities or spider telangiectasias, minimal edema General: No clubbing, No cyanosis and No edema Psych: Appearance: grossly normal Mental Status: mental status grossly normal Speech and movement: Normal speech and movement present Results Labs 08/13/22 06:45 08/13/22 06:45 Labs: Abnormal lab results 08/12/22 08/12/22 08/13/22 Range/Units 18:29 22:15 06:45 RBC (4.20-5.50) X10*6/uL Hgb (12.0-16.0) g/dl Hct (37.0-47.0) % Anion Gap 11 L (12-20) POC Glucose 141 H 270 H (60-115) mg/dL Random Glucose 227 H (60-115) mg/dL Total Protein (6.5-8.0) g/dL Albumin (3.5-5.0) g/dL 08/13/22 08/13/22 08/13/22 Range/Units 06:45 06:45 08:15 RBC 4.01 L (4.20-5.50) X10*6/uL Hgb 11.7 L (12.0-16.0) g/dl Hct 34.7 L (37.0-47.0) % Anion Gap (12-20) POC Glucose 151 H (60-115) mg/dL Random Glucose 226 H (60-115) mg/dL Total Protein 5.9 L (6.5-8.0) g/dL Albumin 3.4 L (3.5-5.0) g/dL 08/13/22 Range/Units 10:55 RBC (4.20-5.50) X10*6/uL Hgb (12.0-16.0) g/dl Hct (37.0-47.0) % Anion Gap (12-20) POC Glucose 303 H (60-115) mg/dL Random Glucose (60-115) mg/dL Total Protein (6.5-8.0) g/dL Albumin (3.5-5.0) g/dL Short CBC 08/13/22 Range/Units 06:45 WBC 8.0 (4.8-10.8) X10*3/uL Hgb 11.7 L (12.0-16.0) g/dl Hct 34.7 L (37.0-47.0) % Plt Count 238 (160-400) X10*3/uL BMP 08/13/22 08/13/22 06:45 06:45 Sodium 141 141 Potassium 4.5 4.5 Chloride 106 106 Carbon Dioxide 29 28 BUN 15 15 Creatinine 1.00 1.01 Calcium 8.8 D 8.9 Liver Function 08/13/22 Range/Units 06:45 Total Bilirubin 0.4 (0.0-1.0) mg/dL AST 10 (5-31) U/L ALT 12 (0-31) U/L Alkaline Phosphatase 51 (39-117) U/L Albumin 3.4 L (3.5-5.0) g/dL Urine 08/12/22 Range/Units 05:21 Urine Color Yellow Urine Appearance Clear Urine pH 7.0 (5.0-9.0) Ur Specific [place] >= 1.030 H (1.005-1.025) Urine Protein Negative (Neg-Trace) mg/dL Urine Glucose (UA) 500 H (Negative) mg/dL All other labs normal. Imaging Additional studies: Carotid ultrasound and CT angiogram results reviewed written report and images. Assessment and Plan (1) Stenosis of left vertebral artery: Status: Acute Plan In short unclear etiology of most recent event. It does not appear to be related to her carotid and vertebral vasculature. Carotids have minimal disease both on ultrasound and CTA. In addition on CTA the left vertebral was found to be stenotic but on ultrasound flow is antegrade and monophasic. Patient appears to be stable at the current time. I do not believe the vertebrals are the source of her current episode of confusion. It appears that she has an outside primary care and vascular surgeon. She is currently also being maintained on cilastozol. She can follow up with us on an as-needed basis. Thank you for allowing us to assist in her care. If there are questions or concerns please do not hesitate to contact us. Time Spent With Patient Time: Total time managing care of this patient today ____ minutes. Procedures Date of Service Date of Service: 08/13/22
--- NOTE | 2022-08-13 14:05 | PM.DS ---
DS: Providers Provider Date of Service: 08/13/22 Date of admission: 08/12/22 06:08 Primary care physician: Unknown Physician Consults: 08/12/22 06:11 Consult to Neurology Routine Consulting Provider: [facility] [place] [facility] [place] [facility] Reason for consultation: encephalopathy Has provider been notified: No 08/12/22 06:55 Consult to Vascular Surgery Routine Consulting Provider: Jack Chan Reason for consultation: stenosis in verterbral artery Has provider been notified: No DS: Diagnosis Discharge Diagnosis (1) Stenosis of left vertebral artery: Status: Acute (2) Hypoglycemia: Status: Acute (3) Encephalopathy: Status: Acute DS: Summary Hospital Course Hospital Course: Admission note HPI This is a 61-year-old female with past medical history of diabetes, hypertension, coronary artery disease status post CABG per patient, neuropathy, peripheral vascular disease, presents the hospital with complaints of altered mental status.? Patient is alert, oriented to self and place but not time.? Patient is brought in by EMS, brother at bedside give some of the history.? According to the brother she went to bed early yesterday and woke up at a p.m. not oriented to time or date.? She then stayed up, and the to a.m. became more and more confused.? She seemed to have had trouble finding words, very weak, unable to stand, he sat her down, they checked her sugar which was 40.? She a some sugar tablet as well as some candy, by the time EMS arrived her sugars were in the 140s.? She reports the headache, no blurry or double vision, no weakness numbness or tingling in arms or legs.? Has chronic neuropathy.? Patient reports intermittent chest pain on exertion, as well as shortness of breath, not present at this time, reports no abdominal pain nausea or vomiting, no diarrhea constipation, no urinary symptoms and no lower extremity edema. On arrival to the ED patient hemodynamically stable with an elevated blood pressure Labs are significant for WBC of 13.1, INR of 1.2, potassium 5.3, Mag of 1.5, UA positive for leukocyte Estrace, UDS negative Hospital course The patient was monitored for reported encephalopathy which seemed to be resolved upon hospital admission as her blood sugar corrected by then. she had images including brain MRI, head and neck CTA and US doppler which did not show any acute brain insult but showed a vertebral artery stenosis at C6 that was evaluated by vascular surgeon dr Chan who doesnt think it is related to her current complaint and can be followed as OP with her primary vascular surgeon. she was evaluated by neurologist dr Randolph who thought her symptoms can be explained with episode of hypoglycemia or possible seizure. she did not have any further episodes of altered mentation during hospital stay and was not noted to develope any seizures. The patient mentioned that she has been using her brothers sliding scale criteria to use Tresiba around 15 units based on her blood sugar level. i explained to her the Tresiba is long acting med and will need to take it daily but in a lower dose for the time being with a plan to follow up with PCP for further adjustment of her meds. She was able to participate with PT and doest not need PT upon discharge. Start Insulin Tresiba 10 units daily , monitor your blood sugar 3 times daily and report readings to PCP follow up with your vascular surgeon as outpatient Take extra 2 seconds upon changing position to minimize the risk of having dizziness upon standing up. Time Spent with Patient Time attestation: Total time managing care of this patient today ____ minutes. Discharge coordination time: Greater than 30 minutes Quality: Safe Use of Opioids Does Pt have an Active Cancer Diagnosis on the Problem List?: No Quality: Stroke Does the patient have a stroke diagnosis?: No Physical Exam Vital Signs: Vital Signs: Last Vital Signs Temp 97.8 F 08/13/22 12:00 Pulse 74 08/13/22 12:00 Resp 18 08/13/22 12:00 BP 132/63 08/13/22 12:00 Pulse Ox 97 08/13/22 12:00 O2 Del Method 08/13/22 04:00 BMI result Body Mass Index 29.9 Const: Other: Constitutional : Awake, interactive, not in distress Neck : Normal inspection, Supple Cardiovascular : RRR, no JVP, no lower extremity edema Respiratory : good bilateral air entry, no crackles, wheezes or rhonchi Gastrointestinal: soft, lax, Normal bowel sounds, Non tender Skin : Warm, Dry Neurological : Alert & oriented x3, No focal deficit , CN 2-12 within normal DS: Data Data Completed and Pending Labs on day of discharge: Laboratory Results - last 24 hr 08/12/22 08/12/22 08/12/22 18:29 20:26 22:15 WBC RBC Hgb Hct MCV MCH MCHC RDW Plt Count MPV Absolute Nucleated RBC Nucleated RBC % (auto) Sodium Potassium Chloride Carbon Dioxide Anion Gap BUN Creatinine Estim Creat Clear Calc Estimated GFR POC Glucose 141 H 95 270 H Random Glucose Calcium Total Bilirubin AST ALT Alkaline Phosphatase Total Protein Albumin Triglycerides Cholesterol LDL Cholesterol, Calc HDL Cholesterol 08/13/22 08/13/22 08/13/22 06:45 06:45 06:45 WBC 8.0 RBC 4.01 L Hgb 11.7 L Hct 34.7 L MCV 86.5 MCH 29.2 MCHC 33.7 RDW 13.2 Plt Count 238 MPV 10.8 Absolute Nucleated RBC 0.000 Nucleated RBC % (auto) 0.0 Sodium 141 141 Potassium 4.5 4.5 Chloride 106 106 Carbon Dioxide 29 28 Anion Gap 11 L 12 BUN 15 15 Creatinine 1.00 1.01 Estim Creat Clear Calc 62.3 61.7 Estimated GFR 56 56 POC Glucose Random Glucose 227 H 226 H Calcium 8.8 D 8.9 Total Bilirubin 0.4 AST 10 ALT 12 Alkaline Phosphatase 51 Total Protein 5.9 L Albumin 3.4 L Triglycerides 93 Cholesterol 145 LDL Cholesterol, Calc 72 HDL Cholesterol 55 08/13/22 08/13/22 08:15 10:55 WBC RBC Hgb Hct MCV MCH MCHC RDW Plt Count MPV Absolute Nucleated RBC Nucleated RBC % (auto) Sodium Potassium Chloride Carbon Dioxide Anion Gap BUN Creatinine Estim Creat Clear Calc Estimated GFR POC Glucose 151 H 303 H Random Glucose Calcium Total Bilirubin AST ALT Alkaline Phosphatase Total Protein Albumin Triglycerides Cholesterol LDL Cholesterol, Calc HDL Cholesterol Preliminary micro results at discharge 08/12/22 07:23 Blood Culture - Preliminary Blood - Venous No growth after 24 hours. 08/12/22 07:23 Blood Culture - Preliminary Blood - Venous No growth after 24 hours. Imaging MRI - head: Radiologist's impression: ITS Impressions Head CT 08/12/22 03:28 IMPRESSION: No acute intracranial findings. Chronic appearing changes as noted above. This stroke protocol result was discussed with Dr. Morgan on 08/12/2022 3:37 AM. Head/Neck CTA 08/12/22 04:00 IMPRESSION: 1. Diminutive left vertebral artery with focal occlusion versus severe stenosis at the level of C6. The vessel also appears narrowed at the levels of C4 and C5. Additional luminal irregularity of the intradural left vertebral artery. 2. Calcification at the origins of the bilateral internal carotid arteries which appears to result in approximately 50% luminal narrowing. 3. No large vessel occlusion or significant stenosis in the anterior intracranial circulation. 4. No acute intracranial findings. Chronic small vessel ischemic disease and volume loss. This stroke protocol result was discussed with Dr. Morgan on 08/12/2022 4:17 AM. Brain MRI 08/12/22 10:56 IMPRESSION: There is a chronic right striatocapsular lacunar infarct and numerous chronic small vessel ischemic changes primarily involving the periventricular white matter. No evidence of acute territorial infarct or hemorrhage. Discharge Plan Discharge Anticipated Discharge Date/Time: 08/13/22 14:03 Patient Disposition: Home, Self-Care Discharge Diagnosis: Hypoglycemia event Encephalopathy Referrals: Physician,Unknown J [Primary Care Provider] - 1 Week Discharge Medications: New insulin degludec [Tresiba FlexTouch U-100] 100 unit/mL (3 mL) insulin pen 10 unit subcut DAILY Qty: 15 0RF Continued cilostazol 100 mg tablet 1 tab PO DAILY gabapentin 600 mg tablet 1 tab PO TID metoprolol tartrate 100 mg tablet 1 tab PO DAILY aspirin 81 mg tablet,delayed release (DR/EC) 1 tab PO BEDTIME metformin 1,000 mg tablet 1 tab PO BID nitroglycerin 0.4 mg tablet, sublingual 1 tab sublingual Q5M PRN (Reason: Angina) omeprazole 20 mg capsule,delayed release(DR/EC) 1 cap PO DAILY@1630 PRN (Reason: Heartburn) albuterol sulfate 90 mcg/actuation HFA aerosol inhaler 2 puff INHALATION Q4-6H PRN (Reason: wheezing) lisinopril 40 mg tablet 1 tab PO DAILY fluticasone propionate 50 mcg/actuation spray,suspension 1 spray intranasal DAILY ezetimibe 10 mg tablet 1 tab PO DAILY rosuvastatin 40 mg tablet 1 tab PO BEDTIME duloxetine 60 mg capsule,delayed release(DR/EC) 1 cap PO BEDTIME ranolazine 1,000 mg tablet extended release 12 hr 1 tab PO BID Xarelto 2.5 mg tablet 1 tab PO BID Bydureon BCise 2 mg/0.85 mL auto-injector 2 mg subcut SAEED@0900 cetirizine 10 mg Tablet 10 mg PO BEDTIME Discontinued insulin degludec [Tresiba U-100 Insulin] 100 unit/mL Solution See Rx Instructions .ROUTE .COMPLEX Rx Instructions: Upon doing the med rec for Clinton Parisi, she told me that she has been taking Tresiba on a sliding scale based off her brother's insulin chart that he received from his provider (although she believes the chart was for lispro). She does not have an exact dose on how much she takes at a time, but usually takes it once a day. She also mentioned that she hasn't had a PCP in 2 years and has been getting her Tresiba from her Aunt. When I called her pharmacy, they state the last prescription was in December 2020 for 30 units daily. Discharge Orders: Discharge Order (Routine); Ordered 08/13/22 Ordered By: Lina Harrell Diet: Advance to usual diet Activity on Discharge: As tolerated Stand Alone Forms: Patient Portal Discharge page Care Plan Goals: Read below Health Concerns: Read below Plan of Treatment: Read below Assessment: You were admitted to the hospital for evaluation of altered mentation and episode of dizziness associated with low blood sugar readings. Evaluated by head CTA,MRI which did not show any acute findings. CTA showed stenosis at left verteberal artery evaluated by vascular surgeon who did not feel it was contributing to your complaints. you were seen by NEurologist who thought your symptoms could be related to low sugar level or possible seizure disorder. no seizures noted during hospital stay. you were able to ambulate with physical therapist with no reported concerns. Start Insulin Tresiba 10 units daily , monitor your blood sugar 3 times daily and report readings to PCP follow up with your vascular surgeon as outpatient Take extra 2 seconds upon changing position to minimize the risk of having dizziness upon standing up. Patient Instructions: Syncope (DC), Hypotension (DC)
[2022-08-13 14:53] LABS: Estimated Average Glucose 192 mg/dL; Hemoglobin A1c % 8.3 %
--- NOTE | 2022-08-13 15:46 | MHC.CM.PN ---
DP: PT HAS BEEN MEDICALLY CLEARED FOR DC HOME, NO SERVICES. RN AWARE. BROTHER WILL TRANSPORT HOME
[2022-08-13 16:49] LABS: Glucose, Whole Blood 139 mg/dL (60-115)
== END 2022-08-13 19:00 | disposition home or self-care (01) | DRG 638 ==
LOC: HO.ED 05:44 → HO.EDOVER 06:15 → HO.IMC 18:07
PROVIDERS: Admitting Provider Internal Medicine; Emergency Provider Emergency Medicine; PCP Internal Medicine; Visit Provider Student in an Organized Health Care Education/Training Program
DX: E11.649 Type 2 diabetes mellitus with hypoglycemia without coma (principal); G93.49 Other encephalopathy; I65.02 Occlusion and stenosis of left vertebral artery; I25.10 Atherosclerotic heart disease of native coronary artery without angina pectoris; I10 Essential (primary) hypertension; E11.40 Type 2 diabetes mellitus with diabetic neuropathy, unspecified; E11.51 Type 2 diabetes mellitus with diabetic peripheral angiopathy without gangrene; Z95.1 Presence of aortocoronary bypass graft; Z95.5 Presence of coronary angioplasty implant and graft; E83.42 Hypomagnesemia; Z20.822 Contact with and (suspected) exposure to COVID-19; Z86.73 Personal history of transient ischemic attack (TIA), and cerebral infarction without residual deficits; Z88.5 Allergy status to narcotic agent; Z88.6 Allergy status to analgesic agent; Z79.4 Long term (current) use of insulin; Z79.01 Long term (current) use of anticoagulants; Z79.51 Long term (current) use of inhaled steroids; Z79.82 Long term (current) use of aspirin; Z79.84 Long term (current) use of oral hypoglycemic drugs; Z79.899 Other long term (current) drug therapy
CPT/HCPCS: 36415; 70450; 70496; 70498; 70551; 80048; 80053; 80061; 80076; 80307; 81001; 82077; 82947; 83036; 83735; 84484; 85025; 85027; 85610; 87040; 87635; 93005; 93880; 97161; 97165; 99285; J0696; J1650; J3475; Q9967

== ENCOUNTER → 2022-09-06 14:23 | Outpatient (BNVA) | payer MEDICARE, MEDICAID, SELFPAY | PROVIDERS: PCP Internal Medicine; Visit Provider Nurse Practitioner Family | DX: I25.10 Atherosclerotic heart disease of native coronary artery without angina pectoris (principal); I73.9 Peripheral vascular disease, unspecified; I10 Essential (primary) hypertension; R06.02 Shortness of breath; R07.89 Other chest pain; R01.1 Cardiac murmur, unspecified; E11.9 Type 2 diabetes mellitus without complications; E78.5 Hyperlipidemia, unspecified; Z95.1 Presence of aortocoronary bypass graft | CPT/HCPCS: Q3014 ==

== ENCOUNTER → 2022-09-11 13:49 | Outpatient (REF) | payer MEDICARE, MEDICAID, SELFPAY ==
--- NOTE | 2022-09-11 13:42 | CA_ITS ---
Transthoracic Echocardiogram Patient (Last, First, Middle): Vee Parisi, Gender: Female Date of : 1960 Age: 61 Procedure Date: 09/11/2022 Procedure Type: Transthoracic Echocardiogram Location: OP Height: 154.94 cm Weight: 69.4 kg BSA: 1.69 m2 Heart Rate: bpm BP: 134 / 60 mmHg National Investigative Producer: ANA MARIA Referring MD: Merissa Jones CHIEF CLERKBhavana Symptoms: R01.1 - Cardiac murmur, unspecified Study Quality: Fair/Contrast ECG Rhythm: Sinus Conclusions: - The left ventricular systolic function is hyperdynamic. The calculated ejection fraction is 71% by biplane method. - There is mild calcification of the aortic valve. - There is mild mitral annular calcification. Findings Procedure Information Contrast agent, definity, is being given per protocol without apparent complications. Left Ventricle Normal left ventricular cavity size. There is moderately increased left ventricular wall thickness. The left ventricular systolic function is hyperdynamic. The calculated ejection fraction is 71% by biplane method. There is no evidence of regional wall motion abnormalities. Diastolic function is normal for age. Small LVOT gradient, with increase in valsalva; no evidence of obstruction. Right Ventricle Normal right ventricular cavity size and systolic function. Atria Both atria are normal in size. Aortic Valve There is a normal trileaflet aortic valve. There is mild calcification of the aortic valve. There is no aortic valve stenosis. There is no aortic valve regurgitation. Mitral Valve There is mild mitral annular calcification. There is trace mitral valve regurgitation. There is no mitral valve stenosis. Pulmonic Valve The pulmonic valve is likely normal. Tricuspid Valve Normal tricuspid valve structure. There is trace tricuspid valve regurgitation. There is no evidence of pulmonary hypertension. Great Vessels The asc aorta is normal in size. Venous The inferior vena cava collapses greater than 50% with inspiration. IVC appears to be of small caliber. Pericardium/Pleural There is no evidence of pericardial effusion. Prior Study Comparison No prior study available for comparison. Measurements 2D Linear Measurements IVSd: 1.29 0.6-0.9/0.6-1.0 cm LVIDd: 3.50 3.9-5.3/4.2-5.9 cm LVIDd Index: 2.07 2.4-3.2/2.2-3.1 cm/m2 LVIDs: 1.82 2.0-3.6 cm LVPWd: 1.30 0.7-1.1 cm LA Diam: 3.50 2.7-3.8/3.0-4.0 cm LAIDs Index: 2.07 1.5-2.3 cm/m2 LV Mass: 190.31 67-162/88-224 g LV Mass Index: 112.61 43-95/49-115 g/m2 LVOT Diam: 2.00 3.0+(-)1.3 cm 2D Systolic Function EF 4C: 72.30 >55% EF 2C: 71.80 >55% EF BiP: 71.00 >55% Mitral Valve MV Pk E: 0.69 MV PK A: 0.91 MV Decel Time: 272.00 E/A: 0.80 E'Lateral: 6.53 E'Medial: 4.68 E/E' Med: 14.70 E/E' Lat: 10.60 PHT: 80.00 MVA PHT: 2.75 Decel Sterling: 2.54 Aortic Valve AoV Pk Ramon: 1.51 AoV Mn Ramon: 1.06 AoV VTI: 0.31 AoV Pk Grad: 9.00 Aov Mn Grad: 5.00 KORY Cont.VTI: 2.16 LVOT LVOT Pk Ramon: 0.84 LVOT Mn Ramon: 0.57 LVOT VTI: 0.21 LVOT Pk Grad: 3.00 LVOT Mn Grad: 1.00 LVOT Diam: 2.00 LVOT Area: 3.14 Diastolic Function MV Pk E: 0.69 MV Pk A: 0.91 E/A: 0.80 E'Medial: 4.68 E/E' Med: 14.70 E' Laterial: 6.53 E/E' Lat: 10.60 Right Ventricle TAPSE (mm): 17.90 TVS' Ramon: 11.20 Tricuspid Valve TR Pk Ramon: 1.65 TR Pk Grad: 11.00 RA Press: 3.00 RVSP: 14.00 Great Vessels Aorta Sinus of Valsalva: 2.80 2.0-3.[address] [place]: 2.26 1.7-3.4 cm Ao Asc: 3.20 2.1-3.4 cm Updated in Other Vendor System with Status of Final Jass Alas MD electronically signed on 09/12/2022 12:13:24 PM with status of Final
== END ==
LOC: HO.CARD 13:49
PROVIDERS: PCP Internal Medicine; Visit Provider Nurse Practitioner Family
DX: I25.10 Atherosclerotic heart disease of native coronary artery without angina pectoris (principal); R01.1 Cardiac murmur, unspecified; R06.02 Shortness of breath
CPT/HCPCS: 93306; 99212; Q9957

== ENCOUNTER → 2022-09-14 13:15 | Outpatient (REF) | payer MEDICARE, MEDICAID, SELFPAY ==
--- NOTE | 2022-09-14 13:24 | HM_ITS ---
Conclusion: 1. Patient was monitored for total period of 2 days 2. Baseline was normal sinus rhythm with average heart of 75 beats per minute 3. No significant pauses or bradycardia noted 4. Very rare ectopy noted 5. No patient reported events MTDD
== END ==
LOC: HO.CARD 13:15
PROVIDERS: PCP Internal Medicine; Visit Provider Nurse Practitioner Family
DX: R07.89 Other chest pain (principal); R06.2 Wheezing; I25.10 Atherosclerotic heart disease of native coronary artery without angina pectoris; R55 Syncope and collapse
CPT/HCPCS: 93242

== ENCOUNTER → 2022-09-17 08:59 | Outpatient (REF) | payer MEDICARE, MEDICAID, SELFPAY ==
--- NOTE | ~2022-09-17 | NM_ITS ---
Lexiscan Myocardial perfusion study Indication: Coronary artery disease, history of bypass, assess for ischemia Technique: The patient was brought in for a Lexiscan perfusion study on 09/17/2022 and was injected 0.4 mg of Lexiscan intravenously. Within a minute of this injection 25 mCi of sestamibi was given intravenously. Images were obtained using the SPECT gamma camera interlaced with the gating device. Images were obtained in supine position. Resting perfusion study was performed on 09/19/2022. Patient was administered 25 mCi of sestamibi intravenously at rest. Images were then obtained in supine position. Images were processed with the software and compared side to side in short axis, horizontal long axis and vertical long axis views. Total DLP Gy-cm. 91 Findings: Raw acquisition reviewed. The stress perfusion study showed mildly diminished tracer uptake along the apex, distal part of inferior wall. There is some improvement with CT attenuation correction suggestive of diaphragmatic attenuation artifact. The gated study shows normal LV systolic function with calculated LVEF of 66%. LV cavity is normal in size. The gated study shows normal wall thickening and contraction of segments. Resting study shows no significant perfusion abnormality. Gating at rest reveals normal wall motion with ejection fraction at 74%. The findings are consistent with mild reversible apical, distal inferior perfusion defect but improvement with CT attenuation correction. Hence probably artifactual. NM/NM cardiolite stress test Impression: 1. Myocardial perfusion imaging study shows no clear evidence of any ischemia or infarction. Probably normal myocardial perfusion. 2. Gated LVEF is 66% during stress and 74% during rest. 3. Transient ischemic dilatation not present. EKG component of the test reported separately.
--- NOTE | 2022-09-17 09:02 | CA_ITS ---
Acquisition Time: 2022-09-17 09:12:32 Total Exercise Time: 00:02:00 Test Indications: CP, SOB Medications: SEE H Protocol: LEXISCAN Max HR: 106 BPM 66% of Pred: 159 BPM Max BP: 132/074 mmHG Max Work Load: 1.0 METS Pharmacological stress test with Lexiscan injection while sitting and kicking their legs. With report of mild SOB and chest tightness, without arryhtmia, with normotensive response, with non-diagnostic EKG. In recovery continued to report sympyoms, treated with Aminophylline 75mg IVP. With resolution of symptoms. Nuclear images pending. Test reviewed with Dr Le Referred By: Merissa Jones Overread By: MERISSA JONES
== END ==
LOC: HO.CARD 08:59
PROVIDERS: PCP Internal Medicine; Visit Provider Nurse Practitioner Family
DX: R07.89 Other chest pain (principal); I25.10 Atherosclerotic heart disease of native coronary artery without angina pectoris; R06.02 Shortness of breath; Z95.1 Presence of aortocoronary bypass graft
CPT/HCPCS: 78452; 93017; A9500; J0280; J2785

== ENCOUNTER 2022-10-24 13:30 | Outpatient (REF) | payer MEDICARE, MEDICAID, SELFPAY ==
--- NOTE | ~2022-10-24 | US_ITS ---
EXAMINATION: ANKLE-BRACHIAL INDICES SINGLE LEVEL PULSE VOLUME RECORDING ARTERIAL DUPLEX BILATERAL LEGS CLINICAL INFORMATION: Peripheral vascular disease. COMPARISON: None TECHNIQUE: Ankle-brachial indices and PVR at the ankle were obtained. Duplex Doppler of the bilateral lower extremity arterial systems was performed. FINDINGS: RIGHT: Ankle-brachial index: 0.88 PVR: Mildly dampened. Common femoral: PSV 194 cm/s. Biphasic waveform. Deep femoral: PSV 130 cm/s. Biphasic waveform. [place] artery proximal to stent: PSV 101 cm/s. Biphasic waveform. Proximal SFA stent: PSV 113 cm/s. Biphasic waveform. Mid SFA stent: PSV 46 cm/s. Biphasic waveform. Distal SFA stent: PSV 52 cm/s. Biphasic waveform. [place] artery distal to stent: PSV 83 cm/s. Biphasic waveform. Popliteal: PSV 233 cm/s. Biphasic waveform. Posterior tibial: PSV 59 cm/s. Monophasic waveform. There is reversal of flow distally. Peroneal: PSV 59 cm/s. Biphasic waveform. LEFT: Ankle-brachial index: 1.15 PVR: Moderately dampened. Common femoral: PSV 138 cm/s. Biphasic waveform. Deep femoral: PSV 150 cm/s. Biphasic waveform. [place] artery proximal to stent: PSV 96 cm/s. Biphasic waveform. Proximal SFA stent: PSV 128 cm/s. Biphasic waveform. Mild in-stent stenosis. Mid SFA stent: PSV 290 cm/s. Low flow biphasic waveform. Moderate in-stent stenosis. Distal SFA stent: PSV 93 cm/s. Biphasic waveform. [place] artery distal to stent: PSV 82 cm/s. Biphasic waveform. Popliteal: PSV 177 cm/s. Biphasic waveform. Posterior tibial: PSV 55 cm/s. Monophasic waveform. Peroneal: PSV 30 cm/s. Biphasic waveform. US/US MIGUELITO complete IMPRESSION: Right lower extremity: Mild peripheral arterial disease by MIGUELITO and PVR criteria. Patent SFA stent. Severe disease posterior tibial artery with reversal of flow. Left lower extremity: No evidence of hemodynamically significant peripheral arterial disease by MIGUELITO. Moderately dampened PVR waveform. Patent SFA stent with mild proximal and moderate mid segment stenoses. Severe posterior tibial disease with monophasic waveform.
--- NOTE | ~2022-10-24 | US_ITS ---
EXAMINATION: ANKLE-BRACHIAL INDICES SINGLE LEVEL PULSE VOLUME RECORDING ARTERIAL DUPLEX BILATERAL LEGS CLINICAL INFORMATION: Peripheral vascular disease. COMPARISON: None TECHNIQUE: Ankle-brachial indices and PVR at the ankle were obtained. Duplex Doppler of the bilateral lower extremity arterial systems was performed. FINDINGS: RIGHT: Ankle-brachial index: 0.88 PVR: Mildly dampened. Common femoral: PSV 194 cm/s. Biphasic waveform. Deep femoral: PSV 130 cm/s. Biphasic waveform. [place] artery proximal to stent: PSV 101 cm/s. Biphasic waveform. Proximal SFA stent: PSV 113 cm/s. Biphasic waveform. Mid SFA stent: PSV 46 cm/s. Biphasic waveform. Distal SFA stent: PSV 52 cm/s. Biphasic waveform. [place] artery distal to stent: PSV 83 cm/s. Biphasic waveform. Popliteal: PSV 233 cm/s. Biphasic waveform. Posterior tibial: PSV 59 cm/s. Monophasic waveform. There is reversal of flow distally. Peroneal: PSV 59 cm/s. Biphasic waveform. LEFT: Ankle-brachial index: 1.15 PVR: Moderately dampened. Common femoral: PSV 138 cm/s. Biphasic waveform. Deep femoral: PSV 150 cm/s. Biphasic waveform. [place] artery proximal to stent: PSV 96 cm/s. Biphasic waveform. Proximal SFA stent: PSV 128 cm/s. Biphasic waveform. Mild in-stent stenosis. Mid SFA stent: PSV 290 cm/s. Low flow biphasic waveform. Moderate in-stent stenosis. Distal SFA stent: PSV 93 cm/s. Biphasic waveform. [place] artery distal to stent: PSV 82 cm/s. Biphasic waveform. Popliteal: PSV 177 cm/s. Biphasic waveform. Posterior tibial: PSV 55 cm/s. Monophasic waveform. Peroneal: PSV 30 cm/s. Biphasic waveform. US/US arterial duplex LE BI IMPRESSION: Right lower extremity: Mild peripheral arterial disease by MIGUELITO and PVR criteria. Patent SFA stent. Severe disease posterior tibial artery with reversal of flow. Left lower extremity: No evidence of hemodynamically significant peripheral arterial disease by MIGUELITO. Moderately dampened PVR waveform. Patent SFA stent with mild proximal and moderate mid segment stenoses. Severe posterior tibial disease with monophasic waveform.
== END 2022-10-24 13:31 | disposition home or self-care (01) ==
LOC: HO.US 13:30
PROVIDERS: PCP Internal Medicine; Visit Provider Surgery Vascular Surgery
DX: I70.213 Atherosclerosis of native arteries of extremities with intermittent claudication, bilateral legs (principal)
CPT/HCPCS: 93923; 93925

== ENCOUNTER → 2022-11-06 15:04 | Outpatient (BNVA) | payer MEDICARE, MEDICAID, SELFPAY | PROVIDERS: PCP Internal Medicine; Visit Provider Surgery Vascular Surgery | DX: I73.9 Peripheral vascular disease, unspecified (principal) | CPT/HCPCS: 99212 ==

== ENCOUNTER 2022-11-08 16:08 | Outpatient (REF) | payer MEDICARE, MEDICAID, SELFPAY ==
[2022-11-08 17:07] LABS: Estimated Average Glucose 220 mg/dL; Hemoglobin A1c % 9.3 %
[2022-11-08 17:58] LABS: Alanine Aminotransferase 10 U/L (0-31); Albumin Level 4.1 g/dL (3.5-5.0); Alkaline Phosphatase 65 U/L (39-117); Anion Gap 15 (12-20); Aspartate Amino Transferase 12 U/L (5-31); Bilirubin Total 0.5 mg/dL (0.0-1.0); Blood Urea Nitrogen 11 mg/dL (9-16); Calcium 9.6 mg/dL (8.4-10.2); Carbon Dioxide 28 mmol/L (22-29); Chloride 102 mmol/L (96-108); Estimated Glomerular Filt Rate 58; Glucose Random 265 mg/dL (60-115); Potassium 5.3 mmol/L (3.3-5.1); Sodium 140 mmol/L (135-145); Total Protein 7.3 g/dL (6.5-8.0)
== END 2022-11-08 16:09 | disposition home or self-care (01) ==
LOC: HO.LAB 16:08
PROVIDERS: PCP Internal Medicine; Visit Provider Internal Medicine
DX: E11.65 Type 2 diabetes mellitus with hyperglycemia (principal); L03.211 Cellulitis of face; K02.7 Dental root caries
CPT/HCPCS: 36415; 80053; 83036

== ENCOUNTER 2022-11-16 13:31 | Emergency (ER) | payer MEDICARE, MEDICAID, SELFPAY ==
--- NOTE | ~2022-11-16 | CT_ITS ---
EXAMINATION: CT HEAD WITHOUT CONTRAST CLINICAL INFORMATION: Headache and lethargy. COMPARISON: 08/12/2022 TECHNIQUE: Contiguous axial imaging was performed from the skull base to vertex without intravenous contrast. This CT examination was performed using dose optimization techniques as appropriate, variously including the following: * Automated exposure control * Adjustment of mA and/or kV according to patient size (this includes techniques or standardized protocols for targeted exams where dose is matched to indication/reason for exam; i.e. extremities or head) Use of iterative reconstruction technique DLP: 584 mGy-cm. FINDINGS: There is no evidence of acute intracranial hemorrhage or territorial infarction. No abnormal mass effect or midline shift is seen. Montoya to white matter differentiation is well preserved. No extra-axial fluid collections are identified. No hydrocephalus. Proportional prominence of the ventricles and sulcal spaces is consistent with mild volume loss. Patchy periventricular and deep white matter hypoattenuation is consistent with mild small vessel ischemic changes. Chronic infarct of the right internal capsule. The osseous structures and soft tissues are normal. The mastoid air cells and visualized portions of the paranasal sinuses are well aerated. CT/CT head/brain wo IV con IMPRESSION: No acute intracranial pathology. Chronic volume loss with small vessel ischemic change.
[2022-11-16 13:48] LABS: Glucose, Whole Blood 332 mg/dL (60-115)
[2022-11-16 13:50] VITALS: BP 114/66; BP 95/43; PULSE 67; PULSE 78; RESP 20; TEMP 36.9; O2SAT 96; O2SAT 97; BMI 29.8
--- NOTE | 2022-11-16 13:52 | ECG_ITS ---
Test Reason : WEAKNESS Blood Pressure : / mmHG Vent. Rate : 064 BPM Atrial Rate : 064 BPM P-R Int : 154 ms QRS Dur : 080 ms QT Int : 446 ms P-R-T Axes : 033 -52 046 degrees QTc Int : 460 ms Normal sinus rhythm Left axis deviation Septal infarct (cited on or before 31-JUL-2022) Inferior infarct , age undetermined Abnormal ECG When compared with ECG of 12-AUG-2022 04:13, QRS duration has decreased Questionable change in initial forces of Anteroseptal leads Referred By: Cesar Orozco Electronically Signed By:RAMY KRISHNAN MD
[2022-11-16 14:39] LABS: MANUAL DIFF FLAG NO
[2022-11-16] MEDS: Insulin Lispro 100 UNIT/ML 3 ML VIAL 8 UNIT SUBCUT (14:39)
[2022-11-16 14:47] LABS: Basophils Percent Auto 0.4 % (0-2); Eosinophils Absolute Auto 0.4 X10*3/uL (0.0-0.4); Eosinophils Percent Auto 4.7 % (0-4); Hematocrit 32.4 % (37.0-47.0); Hemoglobin 10.5 g/dl (12.0-16.0); Imm Gran Abs Auto 0.03 X10*3/uL (0.00-0.03); Imm Gran Pct Auto 0.4 % (0.0-0.4); Lymphocytes Absolute Auto 1.7 X10*3/uL (1.2-4.9); Lymphocytes Percent Auto 20.5 % (20-40); Mean Corpuscular HGB Conc 32.4 g/dl (31.0-35.0); Mean Corpuscular Hemoglobin 27.4 pg (27.0-33.0); Mean Corpuscular Volume 84.6 fL (80.0-98.0); Mean Platelet Volume 10.8 fL (9.4-12.3); Monocytes Absolute Auto 0.6 X10*3/uL (0.1-1.2); Monocytes Percent Auto 6.9 % (2-11); Neutrophils Absolute Auto 5.5 x10*3/uL (2.0-8.3); Neutrophils Percent Auto 67.1 % (45-73); Platelet Count 225 X10*3/uL (160-400); Red Blood Count 3.83 X10*6/uL (4.20-5.50); Red Cell Distribution Width 13.3 % (11.0-16.0); White Blood Count 8.1 X10*3/uL (4.8-10.8)
[2022-11-16 14:55] LABS: Anion Gap 16 (12-20); Blood Urea Nitrogen 15 mg/dL (9-16); Calcium 8.8 mg/dL (8.4-10.2); Carbon Dioxide 22 mmol/L (22-29); Chloride 105 mmol/L (96-108); Creatinine Clr Calc Pharmacy 38.1; Estimated Glomerular Filt Rate 37; Glucose Random 311 mg/dL (60-115); Potassium 4.6 mmol/L (3.3-5.1); Sodium 138 mmol/L (135-145)
[2022-11-16 15:10] LABS: Troponin-I High Sensitivity < 2.7 ng/L (<3.5-17.0)
[2022-11-16] MEDS: 0.9 % Sodium Chloride 1,000 ML 250 ML IVCONT (16:01)
--- NOTE | 2022-11-16 16:32 | ED_ITS ---
HPI - General Adult General Chief complaint: Weakness Stated complaint: Headache, low BG per EMS Time Seen by Provider: 11/16/22 13:47 Source: patient Mode of arrival: EMS Limitations: other (lethargic) History of Present Illness HPI narrative: Patient presents with headache and lethargy, states that she has had headache in the past. Patient with felt lightheaded and was lowered to the ground, EMS thought patient maybe having a stroke Onset (ago): hour(s) Location: head Severity: moderate Pain Consistency: constant Relieving factors: none Related Data Home Medications Medication Instructions Recorded Confirmed albuterol sulfate 90 mcg/actuation 2 puff inhalation Q4-6H PRN 08/12/22 09/06/22 aerosol inhaler wheezing cetirizine 10 mg tablet 10 mg PO BEDTIME 08/12/22 09/06/22 exenatide microspheres 2 mg/0.85 2 mg subcut SAEED@0900 08/12/22 09/06/22 mL subcutaneous auto-injector ([employer]) fluticasone propionate 50 1 spray intranasal DAILY 08/12/22 09/06/22 mcg/actuation nasal spray,suspension aspirin 81 mg tablet,delayed 81 mg PO BEDTIME 09/06/22 09/06/22 release cilostazol 100 mg tablet 100 mg PO DAILY 09/06/22 09/06/22 duloxetine 60 mg capsule,delayed 60 mg PO BEDTIME 09/06/22 09/06/22 release ezetimibe 10 mg tablet 10 mg PO DAILY 09/06/22 09/06/22 gabapentin 600 mg tablet 600 mg PO TID 09/06/22 09/06/22 lisinopril 40 mg tablet 40 mg PO DAILY 09/06/22 09/06/22 metformin 1,000 mg tablet 1,000 mg PO BID 09/06/22 09/06/22 metoprolol tartrate 100 mg tablet 100 mg PO DAILY 09/06/22 09/06/22 nitroglycerin 0.4 mg sublingual 0.4 mg sublingual Q5M PRN Angina 09/06/22 09/06/22 tablet omeprazole 20 mg capsule,delayed 20 mg PO DAILY@1630 PRN Heartburn 09/06/22 09/06/22 release ranolazine 1,000 mg 1,000 mg PO BID 09/06/22 09/06/22 tablet,extended release,12 hr rivaroxaban 2.5 mg tablet (Xarelto) 2.5 mg PO BID 09/06/22 09/06/22 rosuvastatin 40 mg tablet 40 mg PO BEDTIME 09/06/22 09/06/22 semaglutide 1 mg/dose (2 mg/1.5 1 mg subcut QWEEK 09/06/22 09/06/22 mL) subcutaneous pen injector (Ozempic) semaglutide 1 mg/dose (4 mg/3 mL) mg subcut 09/11/22 subcutaneous pen injector (Ozempic) Allergies Allergy/AdvReac Type Severity Reaction Status Date / Time apple [Apple] Allergy Unknown APPLE PEEL Verified 11/06/22 15:09 - ITCHY THROAT nut - unspecified [nut] Allergy Unknown ITCHY Verified 11/06/22 15:09 THROAT pineapple [Pineapple] Allergy Unknown ITCHY Verified 11/06/22 15:09 THROAT acetaminophen [From Percocet] Allergy Anxiety Verified 11/06/22 15:09 oxycodone [From Percocet] Allergy Anxiety Verified 11/06/22 15:09 lim AdvReac Intermediate Swelling Verified 11/06/22 15:09 DUST Allergy Unknown EYES, NOSE Uncoded 09/11/22 13:06 ITCHY - ASTHMA GRASS Allergy Unknown ITCHY EYES Uncoded 09/11/22 13:06 - THROAT pet dander AdvReac Mild Itchy Eyes Uncoded 09/11/22 13:06 Review of Systems Review of Systems: Yes all other systems are reviewed and are negative Neurologic: Comments: headache and lethargy PMFSH Past Medical History Medical History Brain TIA Coronary artery disease CVA (cerebral vascular accident) Diabetes Hypertension Neuropathy Peripheral vascular disease Stenosis of left vertebral artery Surgical History History of angioplasty of peripheral vessel Status post aorto-coronary artery bypass graft Family History Family History Father Coronary artery disease involving coronary bypass graft Mother No problems noted. Social History Social History Alcohol intake: current Alcohol intake frequency: a few times a week Patient Tobacco Use Status: Former Tobacco user Years Smoked: Remote smoking, quit in her 30s Advance Directives: No Advance Directives Information Provided: Yes service: No Current occupational status: unemployed Physical Exam ED Vital Signs: Vital Signs - 24 hr 11/16/22 13:50 Temperature 98.4 F Pulse Rate 67 Respiratory Rate 20 Blood Pressure 95/43 L Pulse Oximetry 96 Oxygen Delivery Method Room Air BMI result Body Mass Index 29.8 Const Other: lethargy but easily conversant General: healthy appearing Nutritional Appearance: average body habitus Orientation/consciousness: oriented to person and patient oriented x3 Limitations: no limitations HENMT Head: Yes normal to inspection Ears: external ears normal General nose exam: Normal external nose present Mouth: Normal oral and palatal mucosa present and oropharynx normal Throat: Yes posterior oropharynx normal Eyes General: appearance normal, both eyes and all related structures Neck Neck: Yes normal visual inspection Chest Chest palpation & inspection: normal inspection of the chest Resp Auscultation: clear to auscultation bilaterally Cardio Jugular venous distension: no JVD Rate: regular rate Rhythm: regular rhythm Heart sounds: S1 normal heart sound present and S2 normal heart sound present GI Inspection: Yes normal to inspection Palpation (GI): Soft to palpation, nontender and No hepatosplenomegaly present Auscultation: normal bowel sounds General: Yes no CVA tenderness Back/Spine/Pelvis Back: no CVA tenderness Skin General skin exam: no rashes or lesions noted Neuro General: oriented to person and patient oriented x3 Cranial nerves: Yes CN's II-XII intact bilaterally Motor exam (neuro): 5/5 motor strength present throughout Extrem General: Yes normal to inspection Psych Appearance: grossly normal Course Reevaluation(s) Reevaluation #1: Patient nonfocal, no evidence of stroke, sugar elevated will check head ct, hydrate and bring sugar down Time: 16:38 Reevaluation #2: I spent 40 minutes of critical care, with interventions, assessments, speaking to patient, consultants, and family. Time: 16:38 Medications Administered Generic Name Dose Route Start Last Admin Trade Name Freq PRN Reason Stop Dose Admin Sodium Chloride 1,000 mls @ 250 mls/hr 11/16/22 14:00 11/16/22 16:01 Ns IVCONT 11/16/22 17:59 250 mls/hr .Q4H AILIN Administration Discontinued Medications Generic Name Dose Route Start Last Admin Trade Name Eneida PRN Reason Stop Dose Admin Insulin Human Lispro 8 unit 11/16/22 13:52 11/16/22 14:39 Insulin Lispro 100 Unit/Ml 3 Ml Vial SUBCUT 11/16/22 13:53 8 unit ONCE ONE Administration Medical Decision Making Differential Diagnosis Differential Diagnoses: The differential diagnosis associated with the presentation includes (headache, migraine, CVA, hyperglycemia) Admission/Observation Consideration of admission/observation: Escalation of care including admission/observation considered (In a patient with atherosclerosis and prior TIA, with headache and question of CVA patient was considered for admission) Lab Data MDM Lab Attestation statement: I reviewed the patient's lab results. 11/16/22 14:30 11/16/22 14:30 Labs: Lab Results 11/16/22 11/16/22 11/16/22 Range/Units 13:45 14:30 14:30 WBC 8.1 (4.8-10.8) X10*3/uL RBC 3.83 L (4.20-5.50) X10*6/uL Hgb 10.5 L (12.0-16.0) g/dl Hct 32.4 L (37.0-47.0) % MCV 84.6 (80.0-98.0) fL MCH 27.4 (27.0-33.0) pg MCHC 32.4 (31.0-35.0) g/dl RDW 13.3 (11.0-16.0) % Plt Count 225 (160-400) X10*3/uL MPV 10.8 (9.4-12.3) fL Immature Gran % (Auto) 0.4 (0.0-0.4) % Neut % (Auto) 67.1 (45-73) % Lymph % (Auto) 20.5 (20-40) % Pickett % (Auto) 6.9 (2-11) % Eos % (Auto) 4.7 H (0-4) % Baso % (Auto) 0.4 (0-2) % Lymph # (Auto) 1.7 (1.2-4.9) X10*3/uL Pickett # (Auto) 0.6 (0.1-1.2) X10*3/uL Eos # (Auto) 0.4 (0.0-0.4) X10*3/uL Baso # (Auto) 0.0 (0.0-0.2) X10*3/uL Abs Immat Gran (auto) 0.03 (0.00-0.03) X10*3/uL Absolute Neuts (auto) 5.5 (2.0-8.3) x10*3/uL Absolute Nucleated RBC 0.000 (0.0-0.012) X10*3/uL Nucleated RBC % (auto) 0.0 (0.0-0.2) /100WBC Sodium 138 (135-145) mmol/L Potassium 4.6 (3.3-5.1) mmol/L Chloride 105 (96-108) mmol/L Carbon Dioxide 22 (22-29) mmol/L Anion Gap 16 (12-20) BUN 15 (9-16) mg/dL Creatinine 1.44 H (0.5-1.4) mg/dL Estim Creat Clear Calc 38.1 Estimated GFR 37 POC Glucose 332 H (60-115) mg/dL Random Glucose 311 H (60-115) mg/dL Calcium 8.8 D (8.4-10.2) mg/dL Troponin I High Sens (<3.5-17.0) ng/L 11/16/22 Range/Units 14:30 WBC (4.8-10.8) X10*3/uL RBC (4.20-5.50) X10*6/uL Hgb (12.0-16.0) g/dl Hct (37.0-47.0) % MCV (80.0-98.0) fL MCH (27.0-33.0) pg MCHC (31.0-35.0) g/dl RDW (11.0-16.0) % Plt Count (160-400) X10*3/uL MPV (9.4-12.3) fL Immature Gran % (Auto) (0.0-0.4) % Neut % (Auto) (45-73) % Lymph % (Auto) (20-40) % Pickett % (Auto) (2-11) % Eos % (Auto) (0-4) % Baso % (Auto) (0-2) % Lymph # (Auto) (1.2-4.9) X10*3/uL Pickett # (Auto) (0.1-1.2) X10*3/uL Eos # (Auto) (0.0-0.4) X10*3/uL Baso # (Auto) (0.0-0.2) X10*3/uL Abs Immat Gran (auto) (0.00-0.03) X10*3/uL Absolute Neuts (auto) (2.0-8.3) x10*3/uL Absolute Nucleated RBC (0.0-0.012) X10*3/uL Nucleated RBC % (auto) (0.0-0.2) /100WBC Sodium (135-145) mmol/L Potassium (3.3-5.1) mmol/L Chloride (96-108) mmol/L Carbon Dioxide (22-29) mmol/L Anion Gap (12-20) BUN (9-16) mg/dL Creatinine (0.5-1.4) mg/dL Estim Creat Clear Calc Estimated GFR POC Glucose (60-115) mg/dL Random Glucose (60-115) mg/dL Calcium (8.4-10.2) mg/dL Troponin I High Sens < 2.7 (<3.5-17.0) ng/L Independent Interpretation I performed an independent interpretation of an: EKG (sinus 60, no st or twave changes) and CT Scan (no bleed) Independent Historian Clinical information obtained from an independent historian. History obtained from or confirmed by: EMS Chronic Conditions Patient?s care impacted by: Diabetes Discharge Plan Discharge Clinical Impression: Headache, Hyperglycemia Patient Disposition: Still a Patient Prescriptions: No Action albuterol sulfate 90 mcg/actuation HFA aerosol inhaler 2 puff INHALATION Q4-6H PRN (Reason: wheezing) fluticasone propionate 50 mcg/actuation spray,suspension 1 spray intranasal DAILY Bydureon BCise 2 mg/0.85 mL auto-injector 2 mg subcut SAEED@0900 cetirizine 10 mg Tablet 10 mg PO BEDTIME aspirin 81 mg tablet,delayed release (DR/EC) 81 mg PO BEDTIME cilostazol 100 mg tablet 100 mg PO DAILY duloxetine 60 mg capsule,delayed release(DR/EC) 60 mg PO BEDTIME ezetimibe 10 mg tablet 10 mg PO DAILY gabapentin 600 mg tablet 600 mg PO TID lisinopril 40 mg tablet 40 mg PO DAILY metformin 1,000 mg tablet 1,000 mg PO BID metoprolol tartrate 100 mg tablet 100 mg PO DAILY nitroglycerin 0.4 mg tablet, sublingual 0.4 mg sublingual Q5M PRN (Reason: Angina) omeprazole 20 mg capsule,delayed release(DR/EC) 20 mg PO DAILY@1630 PRN (Reason: Heartburn) ranolazine 1,000 mg tablet extended release 12 hr 1,000 mg PO BID Xarelto 2.5 mg tablet 2.5 mg PO BID rosuvastatin 40 mg tablet 40 mg PO BEDTIME Ozempic 1 mg/dose (4 mg/3 mL) pen injector subcut Ozempic 1 mg/dose (2 mg/1.5 mL) pen injector 1 mg subcut QWEEK
[2022-11-16 16:59] VITALS: BP 108/53; PULSE 62; RESP 16; TEMP 36.5; O2SAT 95
[2022-11-16 18:48] VITALS: BP 94/48; PULSE 58; RESP 16; TEMP 36.4; O2SAT 98
[2022-11-16 20:39] VITALS: BP 111/52; PULSE 57; RESP 16; O2SAT 100
--- NOTE | 2022-11-16 20:40 | PC.NURSE ---
patient sleeping, awakens to verbal stimuli. skin pale, warm, dry. resp even and non labored. patient reports feeling a little better at this time. VSS. patient states that earlier today she was out to eat and began feeling unwell- states she had trouble remembering what she was going to order for food and was feeling weak and tired. patient closing eyes while talking and starts falling back to sleep, when prompted with a question patient able to finish conversation. patient now back to sleep.
[2022-11-16 22:01] LABS: Appearance Urine Hazy; Color Urine Yellow; Glucose Urine UA Negative (Negative); Leukocyte Esterase Urine Moderate (2+) (Negative); Nitrite Urine Negative (Negative); Specific Gravity - Urine 1.015 (1.005-1.025); UMIC TRIGGER UACC YES; Urine Blood Negative (Negative); Urine Ketones Negative (Negative); Urine Protein Negative (Neg-Trace)
[2022-11-16 22:14] LABS: Glucose, Whole Blood 64 mg/dL (60-115)
[2022-11-16 22:22] LABS: Bacteria Urine None Seen (None Seen); RBC Urine 0-2 /HPF (0-2); Squamous Epithelial Cell Urine >20 /HPF (0-2); WBC Urine 0-5 /HPF (0-5)
[2022-11-16 23:12] VITALS: BP 153/57; PULSE 57; RESP 16; TEMP 36.6; O2SAT 98
[2022-11-17 02:07] LABS: Amphetamine Screen Urine Not Detected (Not Detect); Barbiturates, Urine Not Detected (Not Detect); Benzodiazepines Screen Urine Not Detected (Not Detect); Cannabinoid Screen Urine Not Detected (Not Detect); Cocaine Screen Urine Not Detected (Not Detect); Fentanyl, urine Not Detected (Not Detect); Opiate Screen Urine Not Detected (Not Detect); Phencyclidine Screen Urine Not Detected (Not Detect)
== END 2022-11-17 00:18 | disposition home or self-care (01) ==
PROVIDERS: Emergency Medicine; Emergency Provider Emergency Medicine; PCP Internal Medicine
DX: R51.9 Headache, unspecified (principal); E11.65 Type 2 diabetes mellitus with hyperglycemia; I10 Essential (primary) hypertension; Z86.73 Personal history of transient ischemic attack (TIA), and cerebral infarction without residual deficits; Z87.891 Personal history of nicotine dependence; Z79.82 Long term (current) use of aspirin; Z79.899 Other long term (current) drug therapy; Z79.01 Long term (current) use of anticoagulants; Z79.02 Long term (current) use of antithrombotics/antiplatelets; Z79.84 Long term (current) use of oral hypoglycemic drugs
CPT/HCPCS: 36415; 70450; 80048; 80307; 81001; 81003; 82947; 84484; 85025; 93005; 99284; 99285

== ENCOUNTER 2023-02-07 15:20 | Outpatient (REF) | payer MEDICARE, MEDICAID, SELFPAY ==
[2023-02-07 18:08] LABS: Alanine Aminotransferase 21 U/L (0-31); Albumin Level 3.5 g/dL (3.5-5.0); Alkaline Phosphatase 72 U/L (39-117); Anion Gap 15 (12-20); Aspartate Amino Transferase 22 U/L (5-31); Bilirubin Total 0.4 mg/dL (0.0-1.0); Blood Urea Nitrogen 11 mg/dL (9-16); Calcium 9.1 mg/dL (8.4-10.2); Carbon Dioxide 24 mmol/L (22-29); Chloride 106 mmol/L (96-108); Estimated Glomerular Filt Rate 54; Glucose Random 221 mg/dL (60-115); Potassium 4.9 mmol/L (3.3-5.1); Sodium 140 mmol/L (135-145); Total Protein 7.1 g/dL (6.5-8.0)
[2023-02-08 05:28] LABS: Estimated Average Glucose 214 mg/dL; Hemoglobin A1c % 9.1 % (<6.0)
== END 2023-02-07 15:21 | disposition home or self-care (01) ==
LOC: HO.LAB 15:20
PROVIDERS: PCP Internal Medicine; Visit Provider Internal Medicine
DX: E11.65 Type 2 diabetes mellitus with hyperglycemia (principal); E78.00 Pure hypercholesterolemia, unspecified; M22.2X1 Patellofemoral disorders, right knee; M51.16 Intervertebral disc disorders with radiculopathy, lumbar region; R10.11 Right upper quadrant pain
CPT/HCPCS: 36415; 80053; 83036

== ENCOUNTER 2023-02-12 16:24 | Outpatient (REF) | payer MEDICARE, MEDICAID, SELFPAY ==
--- NOTE | ~2023-02-12 | US_ITS ---
EXAMINATION: US ABDOMEN COMPLETE CLINICAL INFORMATION: Right upper quadrant pain. COMPARISON: None available. TECHNIQUE: Real-time imaging of the abdominal viscera. FINDINGS: PANCREAS: Obscured. ABDOMINAL AORTA: Mostly obscured. INFERIOR VENA CAVA: Visualized portions are normal. LIVER: The liver is normal in size. The liver contour is normal. Parenchymal echogenicity is normal. No focal hepatic lesion. There is no intrahepatic biliary duct dilatation seen. GALLBLADDER: The gallbladder is physiologically distended without evidence of stones, sludge, polyps, wall thickening or pericholecystic fluid. COMMON BILE DUCT: Normal in caliber measuring 0.3 cm in diameter. RIGHT KIDNEY: No hydronephrosis. No renal calculi or focal parenchymal lesions. The kidney measures 10.7 cm in maximum dimension. LEFT KIDNEY: No hydronephrosis. No renal calculi or focal parenchymal lesions. The kidney measures 10.0 cm in maximum dimension. SPLEEN: The spleen measures 9.1 cm in maximum dimension. FREE FLUID: None. US/US abdomen complete IMPRESSION: Unremarkable examination.
== END 2023-02-12 16:25 | disposition home or self-care (01) ==
LOC: HO.US 16:24
PROVIDERS: PCP Internal Medicine; Visit Provider Internal Medicine
DX: R10.11 Right upper quadrant pain (principal)
CPT/HCPCS: 76700

== ENCOUNTER 2023-03-05 15:11 | Outpatient (REF) | payer MEDICARE, MEDICAID, SELFPAY ==
[2023-03-05 15:33] LABS: MANUAL DIFF FLAG NO
[2023-03-05 16:19] LABS: Basophils Percent Auto 0.3 % (0-2); Eosinophils Absolute Auto 0.1 X10*3/uL (0.0-0.4); Eosinophils Percent Auto 1.1 % (0-4); Hematocrit 42.1 % (37.0-47.0); Hemoglobin 13.9 g/dl (12.0-16.0); Imm Gran Abs Auto 0.04 X10*3/uL (0.00-0.03); Imm Gran Pct Auto 0.3 % (0.0-0.4); Lymphocytes Absolute Auto 2.1 X10*3/uL (1.2-4.9); Lymphocytes Percent Auto 16.8 % (20-40); Mean Corpuscular Hemoglobin 26.6 pg (27.0-33.0); Mean Corpuscular Volume 80.5 fL (80.0-98.0); Mean Platelet Volume 11.3 fL (9.4-12.3); Monocytes Absolute Auto 0.7 X10*3/uL (0.1-1.2); Monocytes Percent Auto 5.4 % (2-11); Neutrophils Absolute Auto 9.3 x10*3/uL (2.0-8.3); Neutrophils Percent Auto 76.1 % (45-73); Platelet Count 340 X10*3/uL (160-400); Red Blood Count 5.23 X10*6/uL (4.20-5.50); Red Cell Distribution Width 14.6 % (11.0-16.0); White Blood Count 12.3 X10*3/uL (4.8-10.8)
[2023-03-05 16:46] LABS: Alanine Aminotransferase 23 U/L (0-31); Albumin Level 4.2 g/dL (3.5-5.0); Alkaline Phosphatase 70 U/L (39-117); Anion Gap 17 (12-20); Aspartate Amino Transferase 21 U/L (5-31); Bilirubin Total 0.7 mg/dL (0.0-1.0); Blood Urea Nitrogen 17 mg/dL (9-16); Carbon Dioxide 26 mmol/L (22-29); Chloride 100 mmol/L (96-108); Estimated Glomerular Filt Rate 38; Glucose Random 264 mg/dL (60-115); Potassium 4.3 mmol/L (3.3-5.1); Sodium 139 mmol/L (135-145); Total Protein 7.9 g/dL (6.5-8.0)
== END 2023-03-05 15:12 | disposition home or self-care (01) ==
LOC: HO.LAB 15:11
PROVIDERS: PCP Internal Medicine; Visit Provider Internal Medicine
DX: E11.65 Type 2 diabetes mellitus with hyperglycemia (principal); E78.00 Pure hypercholesterolemia, unspecified; M62.81 Muscle weakness (generalized); N30.01 Acute cystitis with hematuria; R11.10 Vomiting, unspecified; Z79.01 Long term (current) use of anticoagulants
CPT/HCPCS: 36415; 80053; 85025

== ENCOUNTER 2023-03-27 11:38 | Observation (INO) | payer MEDICARE, MEDICAID, SELFPAY ==
[2023-03-27] VITALS (12 sets, daily range): BP systolic 91–189; BP diastolic 54–79; PULSE 66–80; RESP 13–18; TEMP 36.5–36.7; O2SAT 95–98; BMI 28.2
--- NOTE | 2023-03-27 12:17 | ED.GENADULT ---
HPI - General Adult General Chief complaint: Weakness Stated complaint: WEAK/DIZZY X1 MONTH PER EMS Time Seen by Provider: 03/27/23 18:29 Source: patient Mode of arrival: ambulatory Limitations: no limitations History of Present Illness HPI narrative: This is a 62-year-old female history of diabetes, hypertension, PVD, TIAs, CVA presenting via ambulance for evaluation of chest pain, shortness of breath, dizziness, weakness for the past 3 weeks. CP sub sternal nonradiating, w/ a/c shorness of breath. Reports recent urinary tract infection, which she is unsure if it has resolved or not because her urine is still cloudy. Also reporting uncontrolled sugars at home despite med compliance. Denies fevers, chills, headache, vision changes. Patitent on riveroxaban. On initial History and PE 0635 NIHSS-0 Related Data Home Medications Medication Instructions Recorded Confirmed albuterol sulfate 90 mcg/actuation 2 puff inhalation Q4-6H PRN 08/12/22 03/27/23 aerosol inhaler wheezing fluticasone propionate 50 1 spray intranasal DAILY PRN 08/12/22 03/27/23 mcg/actuation nasal Allergy Symptoms spray,suspension aspirin 81 mg tablet,delayed 81 mg PO BEDTIME 09/06/22 03/27/23 release cilostazol 100 mg tablet 100 mg PO BEDTIME 09/06/22 03/27/23 duloxetine 60 mg capsule,delayed 60 mg PO BEDTIME 09/06/22 03/27/23 release ezetimibe 10 mg tablet 10 mg PO BEDTIME 09/06/22 03/27/23 gabapentin 600 mg tablet 600 mg PO TID 09/06/22 03/27/23 lisinopril 40 mg tablet 40 mg PO DAILY 09/06/22 03/27/23 metformin 1,000 mg tablet 1,000 mg PO BID 09/06/22 03/27/23 nitroglycerin 0.4 mg sublingual 0.4 mg sublingual Q5M PRN Angina 09/06/22 03/27/23 tablet omeprazole 20 mg capsule,delayed 20 mg PO DAILY@1630 PRN Heartburn 09/06/22 03/27/23 release ranolazine 1,000 mg 1,000 mg PO BID 09/06/22 03/27/23 tablet,extended release,12 hr rivaroxaban 2.5 mg tablet (Xarelto) 2.5 mg PO BID 09/06/22 03/27/23 semaglutide 1 mg/dose (2 mg/1.5 mg subcut SAEED 09/06/22 09/06/22 mL) subcutaneous pen injector (Ozempic) diphenhydramine HCl 25 mg tablet 25 mg PO BEDTIME 03/27/23 03/27/23 fexofenadine 180 mg tablet 180 mg PO BEDTIME 03/27/23 03/27/23 insulin aspart U-100 100 unit/mL 1 sliding scale dose subcut 03/27/23 03/27/23 (3 mL) subcutaneous pen (Novolog USEASDIRECTD FlexPen U-100 Insulin aspart) insulin degludec 100 unit/mL 3 unit subcut DAILY PRN BS > 190 03/27/23 03/27/23 subcutaneous solution (Tresiba U-100 Insulin) insulin degludec 100 unit/mL 25 unit subcut BEDTIME 03/27/23 03/27/23 subcutaneous solution (Tresiba U-100 Insulin) ondansetron 4 mg disintegrating 4 mg PO TID 03/27/23 03/27/23 tablet Allergies Allergy/AdvReac Type Severity Reaction Status Date / Time apple [Apple] Allergy Unknown APPLE PEEL Verified 11/06/22 15:09 - ITCHY THROAT nut - unspecified [nut] Allergy Unknown ITCHY Verified 11/06/22 15:09 THROAT pineapple [Pineapple] Allergy Unknown ITCHY Verified 11/06/22 15:09 THROAT acetaminophen [From Percocet] Allergy Anxiety Verified 11/06/22 15:09 amoxicillin Allergy Itching Verified 03/27/23 12:18 oxycodone [From Percocet] Allergy Anxiety Verified 11/06/22 15:09 lim AdvReac Intermediate Swelling Verified 11/06/22 15:09 DUST Allergy Unknown EYES, NOSE Uncoded 09/11/22 13:06 ITCHY - ASTHMA GRASS Allergy Unknown ITCHY EYES Uncoded 09/11/22 13:06 - THROAT pet dander AdvReac Mild Itchy Eyes Uncoded 09/11/22 13:06 Review of Systems Review of Systems: Constitutional : No Weight loss, No Fever, No Chills, + Fatigue, + Malaise ENT/Mouth : No sore throat, No Rhinorrhea Eyes: No Eye Pain, No Swelling, No Redness Cardiovascular : + Chest Pain, + SOB, No Dyspnea on Exertion, No Orthopnea, No Edema, No Palpitations Respiratory : No Cough, No Sputum, No Wheezing Gastrointestinal : No Nausea, No Vomiting, No Diarrhea, No Constipation, No abdominal Pain, No Hematochezia, No Melena Genitourinary : No Dysuria, No Urinary Frequency, No Hematuria, + foul smelling urine Musculoskeletal : No joint pain, No Myalgias, No Joint Swelling Skin : No Skin Lesions, No rash Neuro : + Weakness, No Numbness, + Dizziness, No Headache Psych : No Anxiety/Panic, No Depression All other systems reviewed and are negative Yes all other systems are reviewed and are negative [facility] Past Medical History Attestation statement: The following information was validated with the patient. Source: old records reviewed and nursing notes reviewed Medical History Brain TIA Coronary artery disease CVA (cerebral vascular accident) Diabetes Hypertension Neuropathy Peripheral vascular disease Stenosis of left vertebral artery Surgical History History of angioplasty of peripheral vessel Status post aorto-coronary artery bypass graft Family History Family History Father Coronary artery disease involving coronary bypass graft Mother No problems noted. Social History Social History Alcohol intake: current Alcohol intake frequency: holidays/special occasions only Patient Tobacco Use Status: Former Tobacco user Years Smoked: Remote smoking, quit in her 30s Smoked in Last 30 Days: No Use of substances other than those prescribed or required for medical reasons: No Advance Directives: No Advance Directives Information Provided: No service: No Current occupational status: unemployed Physical Exam ED Vital Signs: Vital Signs - 24 hr 03/27/23 12:18 03/27/23 19:10 03/27/23 19:10 Temperature 98.1 F Pulse Rate 76 72 76 Respiratory Rate 18 Blood Pressure 104/55 L 123/66 119/66 Pulse Oximetry 98 Oxygen Delivery Method Room Air 03/27/23 19:11 03/27/23 21:37 03/27/23 21:38 Temperature Pulse Rate 80 68 66 Respiratory Rate Blood Pressure 91/54 L 171/63 H 169/72 H Pulse Oximetry Oxygen Delivery Method 03/27/23 21:39 03/27/23 21:42 03/27/23 23:00 Temperature 97.7 F Pulse Rate 68 68 73 Respiratory Rate 16 Blood Pressure 143/60 H 189/79 H 169/57 H Pulse Oximetry 98 Oxygen Delivery Method Room Air 03/27/23 23:04 03/27/23 23:05 Temperature Pulse Rate 71 75 Respiratory Rate Blood Pressure 178/63 H 150/64 H Pulse Oximetry Oxygen Delivery Method BMI result Body Mass Index 28.2 vss Appearance: Alert.? Oriented X3.? No acute distress.? Head: Normocephalic, atraumatic, no step-offs or deformities Eyes: Pupils equal, round and reactive to light.? Neck: Normal inspection.? Neck supple.? CVS: Normal heart rate and rhythm.? Pulses normal.? Respiratory: No respiratory distress.? Breath sounds normal.? Abdomen: Soft and nontender.? Skin: Skin warm and dry.? Normal skin color.? Normal skin turgor.? Extremities: No lower extremity edema.? No calf ttp. 5/5 strength to bilateral upper and lower extremities Neuro: Oriented X 3.? No motor deficit.? No sensory deficit. CN 2-12 intact . Normal [id number], ehkb-[id number], steady tandem gait normal coordination Course Course Course Narrative: This is an RME: Additional HPI, ROS, PE not included below will be deferred to primary provider. This is a 62-year-old female, with a past medical history of CVA, diabetes, hypertension, peripheral vascular disease, and TIAs, presenting to the emergency department via EMS for evaluation of dizziness and weakness x 3 weeks. She had a recent urinary tract infection and states that her urine is still cloudy. Reporting difficulty with managing her blood glucose levels. Endorsing shortness of breath and chest pain which started today. Reports that she felt weak in the shower. Plan: Labs, EKG, CXR Reevaluation(s) Reevaluation #1: Patient's CBC with leukocytosis and left shift. Chemistry unremarkable. No anion gap, no potassium abnormalities, I do not suspect diabetic ketoacidosis. Troponin negative, EKG nonischemic. Influenza, RSV and COVID negative. I personally obtained orthostatic vital signs on this patient, patient's orthostatic vital signs are positive. Will order IV fluids at this time. This is likely contributing to patient's dizziness. Pending UA. Time: 19:12 Reevaluation #2: UA clean. Pending repeat trop and repeat orthos. Time: 20:28 Reevaluation #3: Repeat orthos also + even after fluids patient still w/ lightheadedness. Will aim to admit at this time Time: 21:46 Additional Reevaluation(s): Patient's orthostatics are still positive despite fluids. Medications Administered Discontinued Medications Generic Name Dose Route Start Last Admin Trade Name Freq PRN Reason Stop Dose Admin Sodium Chloride 1,000 mls @ 999 mls/hr 03/27/23 20:00 03/27/23 22:57 Ns IV 03/27/23 21:00 Infused .Q1H1M AILIN Infusion Sodium Chloride 1,000 mls @ 999 mls/hr 03/27/23 20:30 03/27/23 22:57 Ns IV 03/27/23 21:30 Infused .Q1H1M AILIN Infusion Medical Decision Making Medical Decision Making [facility] Narrative: 1838 62-year-old female presents with cloudy urine, dizziness, weakness, chest pressure, shortness of breath fatigue and malaise for the past 3 weeks Physical examination benign. Neuro nonfocal. Cerebellar intact. NIH stroke scale 0. Will rule out metabolic derangements, anemia, orthostatic hypotension. Will also rule out urinary tract infection. Chest pain and shortness of breath unlikely ACS, PE ( anticoagulated) , dissection, pneumonia. Other differentials include viral illness Plan at this time labs, imaging. Differential Diagnosis Differential Diagnoses: The differential diagnosis associated with the presentation includes Will rule out metabolic derangements, anemia, orthostatic hypotension. Will also rule out urinary tract infection. Chest pain and shortness of breath unlikely ACS, PE, dissection, pneumonia. Other differentials include viral illness Admission/Observation Consideration of admission/observation: Escalation of care including admission/observation considered Lab Data [facility] Lab Attestation statement: I reviewed the patient's lab results. 03/27/23 12:43 03/27/23 12:43 Labs: Lab Results 03/27/23 03/27/23 03/27/23 Range/Units 12:43 19:14 21:34 WBC 12.1 H (4.8-10.8) X10*3/uL RBC 5.14 (4.20-5.50) X10*6/uL Hgb 13.7 (12.0-16.0) g/dl Hct 40.9 (37.0-47.0) % MCV 79.6 L (80.0-98.0) fL MCH 26.7 L (27.0-33.0) pg MCHC 33.5 (31.0-35.0) g/dl RDW 14.5 (11.0-16.0) % Plt Count 262 (160-400) X10*3/uL MPV 10.3 (9.4-12.3) fL Immature Gran % (Auto) 0.3 (0.0-0.4) % Neut % (Auto) 80.2 H (45-73) % Lymph % (Auto) 11.3 L (20-40) % [place] % (Auto) 5.2 (2-11) % Eos % (Auto) 2.5 (0-4) % Baso % (Auto) 0.5 (0-2) % Lymph # (Auto) 1.4 (1.2-4.9) X10*3/uL [place] # (Auto) 0.6 (0.1-1.2) X10*3/uL Eos # (Auto) 0.3 (0.0-0.4) X10*3/uL Baso # (Auto) 0.1 (0.0-0.2) X10*3/uL Abs Immat Gran (auto) 0.04 H (0.00-0.03) X10*3/uL Absolute Neuts (auto) 9.7 H (2.0-8.3) x10*3/uL Absolute Nucleated RBC 0.000 (0.0-0.012) X10*3/uL Nucleated RBC % (auto) 0.0 (0.0-0.2) /100WBC Sodium 141 (135-145) mmol/L Potassium 4.1 (3.3-5.1) mmol/L Chloride 106 (96-108) mmol/L Carbon Dioxide 24 (22-29) mmol/L Anion Gap 15 (12-20) BUN 8 L (9-16) mg/dL Creatinine 1.02 (0.5-1.4) mg/dL Estim Creat Clear Calc 50.2 Estimated GFR 55 Random Glucose 177 H (60-115) mg/dL Calcium 9.7 (8.4-10.2) mg/dL Magnesium 1.9 (1.6-2.6) mg/dL Total Bilirubin 0.6 (0.0-1.0) mg/dL Direct Bilirubin 0.2 (0.0-0.5) mg/dL AST 36 H (5-31) U/L ALT 42 H (0-31) U/L Alkaline Phosphatase 71 (39-117) U/L Troponin I High Sens 3.3 < 2.7 (<3.5-17.0) ng/L Total Protein 7.4 (6.5-8.0) g/dL Albumin 4.0 (3.5-5.0) g/dL Urine Color Yellow Urine Appearance Clear Urine pH 5.5 (5.0-9.0) Ur Specific [place] 1.015 (1.005-1.025) Urine Protein 30 (1+) H (Neg-Trace) mg/dL Urine Glucose (UA) 100 H (Negative) mg/dL Urine Ketones Negative (Negative) mg/dL Urine Blood Negative (Negative) Urine Nitrite Negative (Negative) Ur Leukocyte Esterase Negative (Negative) Urine RBC 0-2 (0-2) /HPF Urine WBC 0-5 (0-5) /HPF Ur Squamous Epith Cells 3-5 (0-2) /HPF Urine Bacteria None Seen (None Seen) Hyaline Casts 3-5 (0-2) /LPF Influenza Type A (PCR) NEGATIVE (Negative) Influenza Type B (PCR) NEGATIVE (Negative) RSV RNA Qual (PCR) NEGATIVE (Negative) SARS-CoV-2 RNA (RT-PCR) NEGATIVE (Negative) Independent Interpretation I performed an independent interpretation of an: EKG (Yet ventricular rate of 77, MO normal, QRS normal, QT/QTC normal. EKG normal sinus rhythm left axis deviation no ST elevations or inversions concerning for acute ischemia.) and Plain X-Ray ( XR/XR chest 2V IMPRESSION: No acute intrathoracic disease. ) Radiology Impression Discussion of test interpretation with radiology: I have reviewed the radiologist's reading. External Record Review External record reviewed: Inpatient record, Office record, Outpatient record, Prior outpatient labs, Prior outpatient radiology, Primary care record and Outside ED record Tests considered The following testing was considered but not selected: Neurological assessment intact, normal cerebellar function, negative NIH Stroke Scale, no trauma no indication for head imaging at this time. Chronic Conditions Patient?s care impacted by: Diabetes and Hypertension Critical Care Time Critical Care Time Critical Care Time: No Discharge Plan Discharge Clinical Impression: Orthostatic hypotension, Shortness of breath, Dizziness, Chest pain Patient Disposition: Admitted As Inpatient Additional Instructions: Take your medications as prescribed. If you were prescribed antibiotics today, it is important that you take your medication to their entirety, do not skip any doses, do not finish them early. Follow-up with your primary care provider this week. Follow up with PCP and cardiology w/ in a week. Return to the emergency department with new or worsening symptoms. Such as fevers, chills, chest pain, shortness of breath, nausea, vomiting, dizziness, headache, vision changes, lethargy In case of emergency call 911 Your laboratory studies were reassuring, cardiac enzymes were normal, your urine showed no infection. Your chest x-ray results are listed below: XR/XR chest 2V
--- NOTE | 2023-03-27 12:22 | ECG_ITS ---
Test Reason : dizziness Blood Pressure : / mmHG Vent. Rate : 077 BPM Atrial Rate : 077 BPM P-R Int : 146 ms QRS Dur : 086 ms QT Int : 388 ms P-R-T Axes : 043 -70 124 degrees QTc Int : 439 ms Normal sinus rhythm Nonspecific T wave abnormality Left anterior fascicular block Septal infarct (cited on or before 31-JUL-2022) Inferior infarct (cited on or before 31-JUL-2022) Abnormal ECG When compared with ECG of 16-NOV-2022 13:58, No significant changes seen Referred By: Birgit Douglas Electronically Signed By:ERMIAS BOURNE MD
[2023-03-27 12:48] LABS: MANUAL DIFF FLAG NO
[2023-03-27 12:50] LABS: Basophils Absolute Auto 0.1 X10*3/uL (0.0-0.2); Basophils Percent Auto 0.5 % (0-2); Eosinophils Absolute Auto 0.3 X10*3/uL (0.0-0.4); Eosinophils Percent Auto 2.5 % (0-4); Hematocrit 40.9 % (37.0-47.0); Hemoglobin 13.7 g/dl (12.0-16.0); Imm Gran Abs Auto 0.04 X10*3/uL (0.00-0.03); Imm Gran Pct Auto 0.3 % (0.0-0.4); Lymphocytes Absolute Auto 1.4 X10*3/uL (1.2-4.9); Lymphocytes Percent Auto 11.3 % (20-40); Mean Corpuscular HGB Conc 33.5 g/dl (31.0-35.0); Mean Corpuscular Hemoglobin 26.7 pg (27.0-33.0); Mean Corpuscular Volume 79.6 fL (80.0-98.0); Mean Platelet Volume 10.3 fL (9.4-12.3); Monocytes Absolute Auto 0.6 X10*3/uL (0.1-1.2); Monocytes Percent Auto 5.2 % (2-11); Neutrophils Absolute Auto 9.7 x10*3/uL (2.0-8.3); Neutrophils Percent Auto 80.2 % (45-73); Platelet Count 262 X10*3/uL (160-400); Red Blood Count 5.14 X10*6/uL (4.20-5.50); Red Cell Distribution Width 14.5 % (11.0-16.0); White Blood Count 12.1 X10*3/uL (4.8-10.8)
[2023-03-27 13:23] LABS: Alanine Aminotransferase 42 U/L (0-31); Alkaline Phosphatase 71 U/L (39-117); Anion Gap 15 (12-20); Aspartate Amino Transferase 36 U/L (5-31); Bilirubin Direct 0.2 mg/dL (0.0-0.5); Bilirubin Total 0.6 mg/dL (0.0-1.0); Blood Urea Nitrogen 8 mg/dL (9-16); Calcium 9.7 mg/dL (8.4-10.2); Carbon Dioxide 24 mmol/L (22-29); Chloride 106 mmol/L (96-108); Creatinine Clr Calc Pharmacy 50.2; Estimated Glomerular Filt Rate 55; Glucose Random 177 mg/dL (60-115); Magnesium 1.9 mg/dL (1.6-2.6); Potassium 4.1 mmol/L (3.3-5.1); Sodium 141 mmol/L (135-145); Total Protein 7.4 g/dL (6.5-8.0)
[2023-03-27 19:21] LABS: Appearance Urine Clear; Color Urine Yellow; Glucose Urine UA 100 mg/dL (Negative); Leukocyte Esterase Urine Negative (Negative); Nitrite Urine Negative (Negative); PH 5.5 (5.0-9.0); Specific Gravity - Urine 1.015 (1.005-1.025); UMIC TRIGGER UACC YES; Urine Blood Negative (Negative); Urine Ketones Negative (Negative); Urine Protein 30 (1+) mg/dL (Neg-Trace)
[2023-03-27 19:26] LABS: Bacteria Urine None Seen (None Seen); RBC Urine 0-2 /HPF (0-2); WBC Urine 0-5 /HPF (0-5)
[2023-03-27] MEDS: 0.9 % Sodium Chloride 1,000 ML 999 ML IV ×2 (20:28→21:20)
--- NOTE | 2023-03-27 21:54 | MHC.EDTECH ---
PATIENT ORTHOSTATICS VITALS TAKEN AND REPEATED TROP DRAW AND SENT TO LAB ,PATIENT BELONGINGS LIST DONE ,PT HAVING A [employer]UNA FISH SANDWICH FOR SNACK .
[2023-03-27 22:02] LABS: Troponin-I High Sensitivity < 2.7 ng/L (<3.5-17.0)
--- NOTE | 2023-03-27 22:21 | PHA.MEDREC ---
Addendum entered by Isa Miller RPh 03/27/23 22:32: Patient was not sure on Ozempic dose, if patient wants med it will need to be brought in by family Original Note: Pharmacy Consult ? Medication Reconciliation Pharmacy has completed the medication reconciliation. Patient confirmed medications based on claim history and previous medical record. Patient think she might be allergic to metformin, reports she tried to stop so of her medications to figure out which medication is causing her to itch, but patient is not sure. Patient does not recognize rosuvastatin. Patient reported taking ranolazine, and metformin last prescribed 10/20/22. Patient reported she ran out of gabapenein, last filled 01/18/23 so she should have some left. Patient has been using her brother gabapenin instead taking 600 mg QD instead of prescribed 600 mg TID. Isa Miller, PharmD
--- NOTE | 2023-03-27 23:07 | MHC.EDTECH ---
repeated orthostatics vitals taken .
--- NOTE | 2023-03-27 23:30 | MHC.EDTECH ---
pt vitals taken, pt continued to be on quality assurance monitor final, RN Page is aware of pt high BP. pt is watching television.
--- NOTE | 2023-03-27 23:56 | P.HPHOSP_ITS ---
History of Present Illness Date of Service: 03/27/23 Chief Complaint: Presyncope This is a 62-year-old female with pertinent history of insulin-dependent diabetes mellitus, essential hypertension, coronary artery disease, peripheral vascular disease, peripheral neuropathy who presents to the emergency department for evaluation of presyncope. Patient states as she was in the shower, she felt dizzy and lightheaded and felt like she was about to pass out. Patient states she has been feeling unwell for the last 2-3 weeks and admits poor p.o. intake over the last 15 days. She is compliant with her home medications. Patient states she started ozempic about a month ago for her diabetes. Also had recent UTI which resolved. No fever, chills, chest discomfort, palpitations prior to the episode of presyncope. No shortness of breath, abdominal pain, changes in urinary or bowel habits. In the emergency department, orthostatic vital signs noted to be positive even after IV crystalloid resuscitation Review of Systems 2 Constitutional: Constitutional: Reports fatigue and Reports lethargy ENT: Reports dizziness Cardiovascular: Cardiovascular: Reports no additional cardiovascular complaints Respiratory: Respiratory: Reports no additional respiratory complaints Gastrointestinal: Gastrointestinal: Reports no additional gastrointestinal complaints Genitourinary: Genitourinary: Reports no additional female genitourinary complaints Neurologic: Reports dizziness Endocrine: Endocrine: Reports fatigue [facility] Medical History Stenosis of left vertebral artery CVA (cerebral vascular accident) Peripheral vascular disease Neuropathy Coronary artery disease Brain TIA Hypertension Diabetes Family History Father Coronary artery disease involving coronary bypass graft Mother No problems noted. Surgical History History of angioplasty of peripheral vessel Status post aorto-coronary artery bypass graft Social History Alcohol intake: current Alcohol intake frequency: holidays/special occasions only Patient Tobacco Use Status: Former Tobacco user Years Smoked: Remote smoking, quit in her 30s Smoked in Last 30 Days: No Use of substances other than those prescribed or required for medical reasons: No Advance Directives: No Advance Directives Information Provided: No service: No Current occupational status: unemployed Meds Allergies Allergy/AdvReac Type Severity Reaction Status Date / Time apple [Apple] Allergy Unknown APPLE PEEL Verified 11/06/22 15:09 - ITCHY THROAT nut - unspecified [nut] Allergy Unknown ITCHY Verified 11/06/22 15:09 THROAT pineapple [Pineapple] Allergy Unknown ITCHY Verified 11/06/22 15:09 THROAT acetaminophen [From Percocet] Allergy Anxiety Verified 11/06/22 15:09 amoxicillin Allergy Itching Verified 03/27/23 12:18 oxycodone [From Percocet] Allergy Anxiety Verified 11/06/22 15:09 lim AdvReac Intermediate Swelling Verified 11/06/22 15:09 DUST Allergy Unknown EYES, NOSE Uncoded 09/11/22 13:06 ITCHY - ASTHMA GRASS Allergy Unknown ITCHY EYES Uncoded 09/11/22 13:06 - THROAT pet dander AdvReac Mild Itchy Eyes Uncoded 09/11/22 13:06 Home Medications Medication Instructions Recorded Confirmed Last Taken Type albuterol sulfate 90 mcg/actuation 2 puff inhalation Q4-6H PRN 08/12/22 03/27/23 Unknown History aerosol inhaler wheezing fluticasone propionate 50 1 spray intranasal DAILY PRN 08/12/22 03/27/23 08/11/22 09:00 History mcg/actuation nasal Allergy Symptoms spray,suspension aspirin 81 mg tablet,delayed 81 mg PO BEDTIME 09/06/22 03/27/23 Unknown History release cilostazol 100 mg tablet 100 mg PO BEDTIME 09/06/22 03/27/23 Unknown History duloxetine 60 mg capsule,delayed 60 mg PO BEDTIME 09/06/22 03/27/23 Unknown History release ezetimibe 10 mg tablet 10 mg PO BEDTIME 09/06/22 03/27/23 Unknown History gabapentin 600 mg tablet 600 mg PO TID 09/06/22 03/27/23 Unknown History lisinopril 40 mg tablet 40 mg PO DAILY 09/06/22 03/27/23 Unknown History metformin 1,000 mg tablet 1,000 mg PO BID 09/06/22 03/27/23 Unknown History nitroglycerin 0.4 mg sublingual 0.4 mg sublingual Q5M PRN Angina 09/06/22 03/27/23 Unknown History tablet omeprazole 20 mg capsule,delayed 20 mg PO DAILY@1630 PRN Heartburn 09/06/22 03/27/23 Unknown History release ranolazine 1,000 mg 1,000 mg PO BID 09/06/22 03/27/23 Unknown History tablet,extended release,12 hr rivaroxaban 2.5 mg tablet (Xarelto) 2.5 mg PO BID 09/06/22 03/27/23 Unknown History semaglutide 1 mg/dose (2 mg/1.5 mg subcut SAEED 09/06/22 09/06/22 Unknown History mL) subcutaneous pen injector (Ozempic) diphenhydramine HCl 25 mg tablet 25 mg PO BEDTIME 03/27/23 03/27/23 Unknown History fexofenadine 180 mg tablet 180 mg PO BEDTIME 03/27/23 03/27/23 Unknown History insulin aspart U-100 100 unit/mL 1 sliding scale dose subcut 03/27/23 03/27/23 Unknown History (3 mL) subcutaneous pen (Novolog USEASDIRECTD FlexPen U-100 Insulin aspart) insulin degludec 100 unit/mL 3 unit subcut DAILY PRN BS > 190 03/27/23 03/27/23 Unknown History subcutaneous solution (Tresiba U-100 Insulin) insulin degludec 100 unit/mL 25 unit subcut BEDTIME 03/27/23 03/27/23 Unknown History subcutaneous solution (Tresiba U-100 Insulin) ondansetron 4 mg disintegrating 4 mg PO TID 03/27/23 03/27/23 Unknown History tablet Physical Exam 2 Vital Signs and Narrative: Vital Signs: Last Vital Signs Temp 97.9 F 03/27/23 23:27 Pulse 74 03/27/23 23:27 Resp 13 03/27/23 23:27 BP 178/72 H 03/27/23 23:27 Pulse Ox 95 03/27/23 23:27 O2 Del Method Room Air 03/27/23 23:27 BMI result Body Mass Index 28.2 Middle-aged female lying in bed in no distress Neck supple, no JVD Regular rate and rhythm, S1-S2 heard Regular breath sounds bilaterally, no wheezing or crackles appreciated Abdomen soft nontender, no guarding, no rigidity Patient is awake, alert and oriented to self, place, time and person ; no focal motor deficit Psych: Normal mood No pedal edema Results Labs 03/27/23 12:43 03/27/23 12:43 Labs: Laboratory Results - last 24 hr 03/27/23 03/27/23 12:43 19:14 MCV 79.6 L MCH 26.7 L MCHC 33.5 RDW 14.5 Plt Count 262 MPV 10.3 Immature Gran % (Auto) 0.3 Neut % (Auto) 80.2 H Lymph % (Auto) 11.3 L [place] % (Auto) 5.2 Eos % (Auto) 2.5 Baso % (Auto) 0.5 Lymph # (Auto) 1.4 [place] # (Auto) 0.6 Eos # (Auto) 0.3 Baso # (Auto) 0.1 Abs Immat Gran (auto) 0.04 H Absolute Neuts (auto) 9.7 H Absolute Nucleated RBC 0.000 Nucleated RBC % (auto) 0.0 Anion Gap 15 Estim Creat Clear Calc 50.2 Estimated GFR 55 Random Glucose 177 H Calcium 9.7 Magnesium 1.9 Total Bilirubin 0.6 Direct Bilirubin 0.2 AST 36 H ALT 42 H Alkaline Phosphatase 71 Total Protein 7.4 Albumin 4.0 Urine Color Yellow Urine Appearance Clear Urine pH 5.5 Ur Specific [place] 1.015 Urine Protein 30 (1+) H Urine Glucose (UA) 100 H Urine Ketones Negative Urine Blood Negative Urine Nitrite Negative Ur Leukocyte Esterase Negative Urine RBC 0-2 Urine WBC 0-5 Ur Squamous Epith Cells 3-5 Urine Bacteria None Seen Hyaline Casts 3-5 Influenza Type A (PCR) NEGATIVE Influenza Type B (PCR) NEGATIVE RSV RNA Qual (PCR) NEGATIVE SARS-CoV-2 RNA (RT-PCR) NEGATIVE Imaging Radiologist's Impressions: Impressions Chest X-Ray 03/27/23 12:51 IMPRESSION: No acute intrathoracic disease. Assessment and Plan (1) Dizziness: Status: Acute (2) Orthostatic hypotension: Status: Acute Plan This is a 62-year-old female with pertinent history of insulin-dependent diabetes mellitus, essential hypertension, coronary artery disease, peripheral vascular disease, peripheral neuropathy who presents to the emergency department for evaluation of presyncope. #. Orthostatic presyncope. Resuscitated with IV crystalloids in the ER. Repeat orthostatic vital signs in a.m.. May need medication adjustment if orthostasis continues #. Insulin-dependent diabetes mellitus. Initiating basal plus insulin regimen #. Essential hypertension. Optimize antihypertensives depending on orthostatic vital signs in a.m. #. Coronary artery disease: On aspirin and ezetimibe. Not on statin. Continue ranolazine #. Peripheral vascular disease. Claims she is on Xarelto for it #. Peripheral neuropathy: On gabapentin and Cymbalta Med rec pending Full code Time Spent With Patient Time: Total time managing care of this patient today ____ minutes. Quality Stroke Does the patient have a stroke diagnosis?: No VTE Prior VTE?: No VTE Risk Level:: Medical - moderate - high VTE Device Contraindication: Treatment Not Indicated VTE Drug Contraindication: N/A - Med Ordered
[2023-03-28] VITALS (10 sets, daily range): BP systolic 127–206; BP diastolic 55–104; PULSE 67–84; RESP 12–20; TEMP 36.4–36.8; O2SAT 98–100
--- NOTE | 2023-03-28 01:16 | MHC.EDTECH ---
vital taken, RN Page aware of high BP. PT is resting
[2023-03-28] MEDS: 0.9 % Sodium Chloride Flush 3 ML SYRINGE IVFLUSH ×2 (02:02→09:23)
[2023-03-28] MEDS: Insulin Glargine,Hum.rec.anlog 100 UNIT/ML 10 ML VIAL 20 UNIT SUBCUT ×2 (02:02→20:57)
[2023-03-28 02:06] LABS: Glucose, Whole Blood 192 mg/dL (60-115)
--- NOTE | 2023-03-28 02:21 | PC.NURSE ---
pt medicated according to aug. this rn standby assist ambulating pt to restroom. pt repositioned to bed
[2023-03-28 05:24] LABS: MANUAL DIFF FLAG NO
[2023-03-28] MEDS: lisinopriL 40 MG TABLET PO (05:30)
[2023-03-28] MEDS: Omeprazole 20 MG CAPSULE.DR PO (05:30)
[2023-03-28 05:38] LABS: Basophils Absolute Auto 0.1 X10*3/uL (0.0-0.2); Basophils Percent Auto 0.6 % (0-2); Eosinophils Absolute Auto 0.3 X10*3/uL (0.0-0.4); Eosinophils Percent Auto 3.9 % (0-4); Hematocrit 38.5 % (37.0-47.0); Hemoglobin 12.2 g/dl (12.0-16.0); Imm Gran Abs Auto 0.02 X10*3/uL (0.00-0.03); Imm Gran Pct Auto 0.3 % (0.0-0.4); Lymphocytes Absolute Auto 2.3 X10*3/uL (1.2-4.9); Lymphocytes Percent Auto 29.4 % (20-40); Mean Corpuscular HGB Conc 31.7 g/dl (31.0-35.0); Mean Corpuscular Hemoglobin 26.2 pg (27.0-33.0); Mean Corpuscular Volume 82.8 fL (80.0-98.0); Mean Platelet Volume 10.8 fL (9.4-12.3); Monocytes Absolute Auto 0.6 X10*3/uL (0.1-1.2); Monocytes Percent Auto 7.7 % (2-11); Neutrophils Absolute Auto 4.6 x10*3/uL (2.0-8.3); Neutrophils Percent Auto 58.1 % (45-73); Platelet Count 221 X10*3/uL (160-400); Red Blood Count 4.65 X10*6/uL (4.20-5.50); Red Cell Distribution Width 14.8 % (11.0-16.0)
--- NOTE | 2023-03-28 05:53 | PC.NURSE ---
@ [address] owens aware of bp of 206/75 HR 75. orders placed. due to down time unable to medicate pt until 529, dr owens aware . pt positioned on back lights dimmed
[2023-03-28 05:54] LABS: Anion Gap 13 (12-20); Blood Urea Nitrogen 11 mg/dL (9-16); Carbon Dioxide 24 mmol/L (22-29); Chloride 111 mmol/L (96-108); Creatinine Clr Calc Pharmacy 55.2; Estimated Glomerular Filt Rate > 60; Glucose Random 151 mg/dL (60-115); Potassium 3.7 mmol/L (3.3-5.1); Sodium 144 mmol/L (135-145)
--- NOTE | 2023-03-28 06:26 | PC.NURSE ---
bp noted to be 167/58. pt resting on back lights dimmed
[2023-03-28] MEDS: Gabapentin 300 MG CAPSULE 600 MG PO (06:29)
[2023-03-28 08:26] LABS: Glucose, Whole Blood 93 mg/dL (60-115)
--- NOTE | 2023-03-28 09:25 | PC.NURSE ---
pt alert and oriented, skin appropriate for ethnicity, respirations even and unlabored, ls clear, pt denies feeling dizzy at this time, denies pain, pt is ns on the monitor and vs stable
--- NOTE | 2023-03-28 09:49 | MHC.CM.PN ---
MATT 03/28. Pt lives at home with her brother and nephew, is independent/self-care. Returning home is the goal. Pts brother will transport her home. Pts states her daughter is her HCP, copy requested. PCP: Dr. Maria R Sarmiento
[2023-03-28] MEDS: Lactated Ringers 1,000 ML 100 ML IVCONT (10:18)
[2023-03-28] MEDS: Rivaroxaban 10 MG TABLET 2.5 MG PO ×2 (10:34→22:07)
[2023-03-28] MEDS: Acetaminophen 325 MG TABLET 650 MG PO ×2 (11:33→19:57)
--- NOTE | 2023-03-28 12:18 | PM.CNCAR ---
History of Present Illness History of Present Illness Date of Service: 03/28/23 Requesting physician: Chantell Salazar Chief complaint: Presyncope, chest pain Narrative: 62-year-old female who has known history of coronary artery disease with bypass surgery in the past as well as occluded vein graft to right coronary artery while she was in [place] and PCI to right coronary artery. She also has peripheral vascular disease with multiple interventions to both lower extremities. She also had multiple episodes of presyncope/syncope in the past. On 1 occasion she was found to be hypoglycemic. She is saying that she feels dizzy and feels that she is going to pass out. On some occasions she actually had syncope and passed out. Yesterday she was taking a shower before going for dentist appointment and started feeling dizzy. She called her brother and was brought in to ER. She said she also had some chest discomfort. She has been experiencing chest discomfort and actually saw Merissa in our office in August 2022. She subsequently had a Lexiscan performed which was normal. She is saying that she continues to get some chest discomfort which is a tightness in the chest as well as at times arm discomfort. These symptoms are similar to her anginal symptoms before bypass surgery. On 1 occasion she had bilateral arm discomfort at rest. Overall she is describing symptoms when she does activities and exercise. She does have peripheral vascular disease and claudication and I think she is quite limited due to them and does not do a lot of activity. Based on this she has been getting symptom with not much activity as she is limited by claudication. She is on rivaroxaban 2.5 mg twice a day for peripheral skin disease. She is also taking baby aspirin and cilostazol. Initial blood pressure was a little low and she was thought to be dehydrated because she had some diarrhea couple of weeks ago and was feeling very fatigued and tired after that with poor p.o. intake. She was fluids as stated and in fact now blood pressure is elevated. [facility] Past Medical History Medical History Stenosis of left vertebral artery CVA (cerebral vascular accident) Peripheral vascular disease Neuropathy Coronary artery disease Brain TIA Hypertension Diabetes Family History Family History Father Coronary artery disease involving coronary bypass graft Mother No problems noted. Surgical History Surgical History History of angioplasty of peripheral vessel Status post aorto-coronary artery bypass graft Social History Social History Alcohol intake: current Alcohol intake frequency: holidays/special occasions only Patient Tobacco Use Status: Former Tobacco user Years Smoked: Remote smoking, quit in her 30s Smoked in Last 30 Days: No Use of substances other than those prescribed or required for medical reasons: No Advance Directives: No Advance Directives Information Provided: No service: No Current occupational status: unemployed Meds Allergies Allergy/AdvReac Type Severity Reaction Status Date / Time apple [Apple] Allergy Unknown APPLE PEEL Verified 11/06/22 15:09 - ITCHY THROAT nut - unspecified [nut] Allergy Unknown ITCHY Verified 11/06/22 15:09 THROAT pineapple [Pineapple] Allergy Unknown ITCHY Verified 11/06/22 15:09 THROAT acetaminophen [From Percocet] Allergy Anxiety Verified 11/06/22 15:09 amoxicillin Allergy Itching Verified 03/27/23 12:18 oxycodone [From Percocet] Allergy Anxiety Verified 11/06/22 15:09 lim AdvReac Intermediate Swelling Verified 11/06/22 15:09 DUST Allergy Unknown EYES, NOSE Uncoded 09/11/22 13:06 ITCHY - ASTHMA GRASS Allergy Unknown ITCHY EYES Uncoded 09/11/22 13:06 - THROAT pet dander AdvReac Mild Itchy Eyes Uncoded 09/11/22 13:06 Active Medications: Current Medications Acetaminophen (Acetaminophen 325 Mg Tablet) 650 mg PO Q6H PRN PRN Reason: Pain, Mild (Pain Scale 1-3) Last Admin: 03/28/23 11:33 Dose: 650 mg Albuterol Sulfate (Albuterol Sulfate 90 Mcg 8 Gm Inhaler) 2 puff INHALE Q4H PRN PRN Reason: wheezing Aspirin (Aspirin Enteric Coated 81 Mg Tablet.Dr) 81 mg PO BEDTIME [facility] Cilostazol (Cilostazol 100 Mg Tablet) 100 mg PO BEDTIME [facility] Dextrose (Dextrose 50 % 25 Gm/50 Ml Syringe) 25 gm IVPUSH Q15M PRN; Protocol PRN Reason: per Hypoglycemia Standing Ord. Duloxetine HCl (Duloxetine Hcl 60 Mg Capsule.) 60 mg PO BEDTIME [facility] Ezetimibe (Ezetimibe 10 Mg Tablet) 10 mg PO BEDTIME [facility] Gabapentin (Gabapentin 600 Mg Tablet) 600 mg PO TID [facility] Glucose (Glucose Gel 15 Gm Gel..Gram.) 15 gm PO Q15M PRN; Protocol PRN Reason: per Hypoglycemia Standing Ord. Lactated Ringer's (Lr) 1,000 mls @ 100 mls/hr IVCONT .Q10H [facility] Stop: 03/28/23 19:44 Last Admin: 03/28/23 10:18 Dose: 100 mls/hr Insulin Glargine (Insulin Glargine,Hum.Rec.Anlog 100 Unit/Ml 10 Ml Vial) 20 unit SUBCUT BEDTIME [facility] Last Admin: 03/28/23 02:02 Dose: 20 unit Insulin Human Lispro (Insulin Lispro 100 Unit/Ml 3 Ml Vial) 0 unit SUBCUT QIDACHS [facility]; Protocol Last Admin: 03/28/23 09:18 Dose: Not Given Lisinopril (Lisinopril 40 Mg Tablet) 40 mg PO DAILY [facility]; Protocol Last Admin: 03/28/23 05:30 Dose: 40 mg Melatonin (Melatonin 3 Mg Tablet) 6 mg PO BEDTIME PRN PRN Reason: Insomnia Omeprazole (Omeprazole 20 Mg Capsule.) 20 mg PO DAILY@1630 PRN PRN Reason: Heartburn Ondansetron HCl (Ondansetron Hcl 4 Mg/2 Ml Vial) 4 mg IVPUSH Q8H PRN PRN Reason: Nausea and Vomiting Ranolazine (Ranolazine 500 Mg Tab.Er.12h) 1,000 mg PO BID [facility] Rivaroxaban (Rivaroxaban 10 Mg Tablet) 2.5 mg PO BID [facility] Last Admin: 03/28/23 10:34 Dose: 2.5 mg Sodium Chloride (0.9 % Sodium Chloride Flush 3 Ml Syringe) 3 [facility] Last Admin: 03/28/23 09:23 Dose: 3 ml Home Medications Medication Instructions Recorded Confirmed Last Taken Type albuterol sulfate 90 mcg/actuation 2 puff inhalation Q4-6H PRN 08/12/22 03/27/23 Unknown History aerosol inhaler wheezing fluticasone propionate 50 1 spray intranasal DAILY PRN 08/12/22 03/27/23 08/11/22 09:00 History mcg/actuation nasal Allergy Symptoms spray,suspension aspirin 81 mg tablet,delayed 81 mg PO BEDTIME 09/06/22 03/27/23 Unknown History release cilostazol 100 mg tablet 100 mg PO BEDTIME 09/06/22 03/27/23 Unknown History duloxetine 60 mg capsule,delayed 60 mg PO BEDTIME 09/06/22 03/27/23 Unknown History release ezetimibe 10 mg tablet 10 mg PO BEDTIME 09/06/22 03/27/23 Unknown History gabapentin 600 mg tablet 600 mg PO TID 09/06/22 03/27/23 Unknown History lisinopril 40 mg tablet 40 mg PO DAILY 09/06/22 03/27/23 Unknown History metformin 1,000 mg tablet 1,000 mg PO BID 09/06/22 03/27/23 Unknown History nitroglycerin 0.4 mg sublingual 0.4 mg sublingual Q5M PRN Angina 09/06/22 03/27/23 Unknown History tablet omeprazole 20 mg capsule,delayed 20 mg PO DAILY@1630 PRN Heartburn 09/06/22 03/27/23 Unknown History release ranolazine 1,000 mg 1,000 mg PO BID 09/06/22 03/27/23 Unknown History tablet,extended release,12 hr rivaroxaban 2.5 mg tablet (Xarelto) 2.5 mg PO BID 09/06/22 03/27/23 Unknown History semaglutide 1 mg/dose (2 mg/1.5 mg subcut SAEED 09/06/22 09/06/22 Unknown History mL) subcutaneous pen injector (Ozempic) diphenhydramine HCl 25 mg tablet 25 mg PO BEDTIME 03/27/23 03/27/23 Unknown History fexofenadine 180 mg tablet 180 mg PO BEDTIME 03/27/23 03/27/23 Unknown History insulin aspart U-100 100 unit/mL 1 sliding scale dose subcut 03/27/23 03/27/23 Unknown History (3 mL) subcutaneous pen (Novolog USEASDIRECTD FlexPen U-100 Insulin aspart) insulin degludec 100 unit/mL 3 unit subcut DAILY PRN BS > 190 03/27/23 03/27/23 Unknown History subcutaneous solution (Tresiba U-100 Insulin) insulin degludec 100 unit/mL 25 unit subcut BEDTIME 03/27/23 03/27/23 Unknown History subcutaneous solution (Tresiba U-100 Insulin) ondansetron 4 mg disintegrating 4 mg PO TID 03/27/23 03/27/23 Unknown History tablet Physical Exam Vital Signs: Vital Signs: Last Vital Signs Temp 98.3 F 03/28/23 01:15 Pulse 84 03/28/23 08:38 Resp 12 03/28/23 06:25 BP 127/62 03/28/23 08:38 Pulse Ox 98 03/28/23 06:25 O2 Del Method Room Air 03/28/23 06:25 BMI result Body Mass Index 28.2 GENERAL APPEARANCE: in no acute distress, pleasant. NECK: no carotid bruit, no jugular venous distention. SKIN: no suspicious lesions, warm and dry. HEART: no murmurs, regular rate and rhythm. LUNGS: clear to auscultation bilaterally. ABDOMEN: soft, nontender. EXTREMITIES: no edema. PERIPHERAL PULSES: equal. NEUROLOGIC: No gross deficits, AAO X 3 Objective Labs and Meds 03/28/23 04:41 03/28/23 04:41 Lab results: Laboratory Results - last 24 hr 03/27/23 03/27/23 03/27/23 12:43 19:14 21:34 WBC 12.1 H RBC 5.14 Hgb 13.7 Hct 40.9 MCV 79.6 L MCH 26.7 L MCHC 33.5 RDW 14.5 Plt Count 262 MPV 10.3 Immature Gran % (Auto) 0.3 Neut % (Auto) 80.2 H Lymph % (Auto) 11.3 L [place] % (Auto) 5.2 Eos % (Auto) 2.5 Baso % (Auto) 0.5 Lymph # (Auto) 1.4 [place] # (Auto) 0.6 Eos # (Auto) 0.3 Baso # (Auto) 0.1 Abs Immat Gran (auto) 0.04 H Absolute Neuts (auto) 9.7 H Absolute Nucleated RBC 0.000 Nucleated RBC % (auto) 0.0 Sodium 141 Potassium 4.1 Chloride 106 Carbon Dioxide 24 Anion Gap 15 BUN 8 L Creatinine 1.02 Estim Creat Clear Calc 50.2 Estimated GFR 55 POC Glucose Random Glucose 177 H Calcium 9.7 Magnesium 1.9 Total Bilirubin 0.6 Direct Bilirubin 0.2 AST 36 H ALT 42 H Alkaline Phosphatase 71 Troponin I High Sens 3.3 < 2.7 Total Protein 7.4 Albumin 4.0 Urine Color Yellow Urine Appearance Clear Urine pH 5.5 Ur Specific [place] 1.015 Urine Protein 30 (1+) H Urine Glucose (UA) 100 H Urine Ketones Negative Urine Blood Negative Urine Nitrite Negative Ur Leukocyte Esterase Negative Urine RBC 0-2 Urine WBC 0-5 Ur Squamous Epith Cells 3-5 Urine Bacteria None Seen Hyaline Casts 3-5 Influenza Type A (PCR) NEGATIVE Influenza Type B (PCR) NEGATIVE RSV RNA Qual (PCR) NEGATIVE SARS-CoV-2 RNA (RT-PCR) NEGATIVE 03/28/23 03/28/23 03/28/23 02:00 04:41 08:18 WBC 8.0 RBC 4.65 Hgb 12.2 Hct 38.5 MCV 82.8 MCH 26.2 L MCHC 31.7 RDW 14.8 Plt Count 221 MPV 10.8 Immature Gran % (Auto) 0.3 Neut % (Auto) 58.1 Lymph % (Auto) 29.4 [place] % (Auto) 7.7 Eos % (Auto) 3.9 Baso % (Auto) 0.6 Lymph # (Auto) 2.3 [place] # (Auto) 0.6 Eos # (Auto) 0.3 Baso # (Auto) 0.1 Abs Immat Gran (auto) 0.02 Absolute Neuts (auto) 4.6 Absolute Nucleated RBC 0.000 Nucleated RBC % (auto) 0.0 Sodium 144 Potassium 3.7 Chloride 111 H Carbon Dioxide 24 Anion Gap 13 BUN 11 Creatinine 0.93 Estim Creat Clear Calc 55.2 Estimated GFR > 60 POC Glucose 192 H 93 Random Glucose 151 H Calcium 9.0 D Magnesium Total Bilirubin Direct Bilirubin AST ALT Alkaline Phosphatase Troponin I High Sens Total Protein Albumin Urine Color Urine Appearance Urine pH Ur Specific [place] Urine Protein Urine Glucose (UA) Urine Ketones Urine Blood Urine Nitrite Ur Leukocyte Esterase Urine RBC Urine WBC Ur Squamous Epith Cells Urine Bacteria Hyaline Casts Influenza Type A (PCR) Influenza Type B (PCR) RSV RNA Qual (PCR) SARS-CoV-2 RNA (RT-PCR) Imaging Radiologist's impression: Impressions Chest X-Ray 03/27/23 12:51 IMPRESSION: No acute intrathoracic disease. 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 She is complaining of anginal symptoms but overall appeared to be stable. She is presenting currently with dizziness and was felt to be dehydrated. She has been fluid resuscitated at this stage and overall is improving. High sensitive troponin level is less than 2.7. ECG is not showing any dynamic changes and she has evidence of septal and inferior infarct with left axis deviation with QTC of 388 milliseconds. I have discussed with her that given the fact that she continues to get some chest discomfort we should pursue diagnostic angiogram which she is agreeable for. We will arrange this as outpatient. As she recovers from dizziness and gets fluid resuscitated please check her orthostatics and is stable potentially can be discharged home. She is already set up to see us and has seen Merissa in our office already. Thank you for allowing me to participate in the care of your patient. Please feel free to contact me if you have any questions. Time Spent With Patient Time: Total time managing care of this patient today ____ minutes. Procedures Date of Service Date of Service: 03/28/23
[2023-03-28 14:22] LABS: Glucose, Whole Blood 190 mg/dL (60-115)
[2023-03-28] MEDS: Insulin Lispro 100 UNIT/ML 3 ML VIAL SUBCUT ×3 (14:25→20:56)
[2023-03-28] MEDS: Gabapentin 600 MG TABLET PO ×2 (14:26→20:57)
--- NOTE | 2023-03-28 14:45 | PC.NURSE ---
pt is currently resting comfortably on the stretcher at this time, pt denies pain at this time, but does have some intermitted abd pain and just reports feeling general weak, vs stable
[2023-03-28 17:09] LABS: Glucose, Whole Blood 169 mg/dL (60-115)
--- NOTE | 2023-03-28 17:58 | HO.PM.IMPN ---
Subjective Subjective Date of Service: 03/28/23 Interval History: seen and examined this morning follow up for orthostatic hypotension, near syncope feeling better today after receiving fluid, but orthostatics still + Review of Systems Review of Systems: Yes all other systems are reviewed and are negative Constitutional Constitutional: Denies chills and Denies fever(s) Cardiovascular Cardiovascular: Denies chest pain, Denies palpitations and Denies dyspnea Respiratory Respiratory: Denies cough and Denies dyspnea Endocrine Endocrine: Denies palpitations Physical Exam Vital Signs: Vital Signs: Last Vital Signs Temp 97.8 F 03/28/23 13:33 Pulse 75 03/28/23 13:33 Resp 18 03/28/23 13:33 BP 186/55 H 03/28/23 13:33 Pulse Ox 99 03/28/23 13:33 O2 Del Method Room Air 03/28/23 13:33 BMI result Body Mass Index 28.2 Const: General: cooperative, comfortable, alert and awake Nutritional Appearance: average body habitus Orientation/consciousness: patient oriented x3 Resp: Effort & Inspection: normal respiratory effort, able to speak in complete sentences, no respiratory distress and no use of accessory muscles Cardio: Rate: regular rate GI: Inspection: No distended Palpation (GI): Soft to palpation and nontender Neuro: General: patient oriented x3, moves all extremities and CN's II-XI intact bilaterally Extrem: General: Yes no pedal edema Objective Data Active Medications Acetaminophen (Acetaminophen 325 Mg Tablet) 650 mg PO Q6H PRN PRN Reason: Pain, Mild (Pain Scale 1-3) Last Admin: 03/28/23 11:33 Dose: 650 mg Documented By: ROBERT Albuterol Sulfate (Albuterol Sulfate 90 Mcg 8 Gm Inhaler) 2 puff INHALE Q4H PRN PRN Reason: wheezing Aspirin (Aspirin Enteric Coated 81 Mg Tablet.) 81 mg PO BEDTIME [facility] Cilostazol (Cilostazol 100 Mg Tablet) 100 mg PO BEDTIME [facility] Dextrose (Dextrose 50 % 25 Gm/50 Ml Syringe) 25 gm IVPUSH Q15M PRN; Protocol PRN Reason: per Hypoglycemia Standing Ord. Duloxetine HCl (Duloxetine Hcl 60 Mg Capsule.) 60 mg PO BEDTIME [facility] Ezetimibe (Ezetimibe 10 Mg Tablet) 10 mg PO BEDTIME [facility] Gabapentin (Gabapentin 600 Mg Tablet) 600 mg PO TID [facility] Last Admin: 03/28/23 14:26 Dose: 600 mg Documented By: FLORESITA Glucose (Glucose Gel 15 Gm Gel..Gram.) 15 gm PO Q15M PRN; Protocol PRN Reason: per Hypoglycemia Standing Ord. Lactated Ringer's (Lr) 1,000 mls @ 100 mls/hr IVCONT .Q10H [facility] Stop: 03/28/23 19:44 Last Admin: 03/28/23 10:18 Dose: 100 mls/hr Documented By: FLORESITA Insulin Glargine (Insulin Glargine,Hum.Rec.Anlog 100 Unit/Ml 10 Ml Vial) 20 unit SUBCUT BEDTIME [facility] Last Admin: 03/28/23 02:02 Dose: 20 unit Documented By: SAMIR Insulin Human Lispro (Insulin Lispro 100 Unit/Ml 3 Ml Vial) 0 unit SUBCUT QIDACHS [facility]; Protocol Last Admin: 03/28/23 14:25 Dose: 2 unit Documented By: FLORESITA Lisinopril (Lisinopril 40 Mg Tablet) 40 mg PO DAILY [facility]; Protocol Last Admin: 03/28/23 05:30 Dose: 40 mg Documented By: SAMIR Melatonin (Melatonin 3 Mg Tablet) 6 mg PO BEDTIME PRN PRN Reason: Insomnia Omeprazole (Omeprazole 20 Mg Capsule.Dr) 20 mg PO DAILY@1630 PRN PRN Reason: Heartburn Ondansetron HCl (Ondansetron Hcl 4 Mg/2 Ml Vial) 4 mg IVPUSH Q8H PRN PRN Reason: Nausea and Vomiting Ranolazine (Ranolazine 500 Mg Tab.Er.12h) 1,000 mg PO BID [facility] Rivaroxaban (Rivaroxaban 10 Mg Tablet) 2.5 mg PO BID [facility] Last Admin: 03/28/23 10:34 Dose: 2.5 mg Documented By: FLORESITA Sodium Chloride (0.9 % Sodium Chloride Flush 3 Ml Syringe) 3 ml IVFLUSH QSHIFT [facility] Last Admin: 03/28/23 16:59 Dose: Not Given Documented By: FLORESITA Non-Admin Reason: IV Running Labs 03/28/23 04:41 03/28/23 04:41 Labs: Laboratory Results - last 24 hr 1003/28/23 03/28/23 19:14 02:00 04:41 MCV 82.8 MCH 26.2 L MCHC 31.7 RDW 14.8 Plt Count 221 MPV 10.8 Immature Gran % (Auto) 0.3 Neut % (Auto) 58.1 Lymph % (Auto) 29.4 [place] % (Auto) 7.7 Eos % (Auto) 3.9 Baso % (Auto) 0.6 Lymph # (Auto) 2.3 [place] # (Auto) 0.6 Eos # (Auto) 0.3 Baso # (Auto) 0.1 Abs Immat Gran (auto) 0.02 Absolute Neuts (auto) 4.6 Absolute Nucleated RBC 0.000 Nucleated RBC % (auto) 0.0 Anion Gap 13 Estim Creat Clear Calc 55.2 Estimated GFR > 60 POC Glucose 192 H Random Glucose 151 H Calcium 9.0 D Urine Color Yellow Urine Appearance Clear Urine pH 5.5 Ur Specific [place] 1.015 Urine Protein 30 (1+) H Urine Glucose (UA) 100 H Urine Ketones Negative Urine Blood Negative Urine Nitrite Negative Ur Leukocyte Esterase Negative Urine RBC 0-2 Urine WBC 0-5 Ur Squamous Epith Cells 3-5 Urine Bacteria None Seen Hyaline Casts 3-5 03/28/23 03/28/23 03/28/23 08:18 14:18 17:05 MCV MCH MCHC RDW Plt Count MPV Immature Gran % (Auto) Neut % (Auto) Lymph % (Auto) [place] % (Auto) Eos % (Auto) Baso % (Auto) Lymph # (Auto) [place] # (Auto) Eos # (Auto) Baso # (Auto) Abs Immat Gran (auto) Absolute Neuts (auto) Absolute Nucleated RBC Nucleated RBC % (auto) Anion Gap Estim Creat Clear Calc Estimated GFR POC Glucose 93 190 H 169 H Random Glucose Calcium Urine Color Urine Appearance Urine pH Ur Specific [place] Urine Protein Urine Glucose (UA) Urine Ketones Urine Blood Urine Nitrite Ur Leukocyte Esterase Urine RBC Urine WBC Ur Squamous Epith Cells Urine Bacteria Hyaline Casts Assessment and Plan (1) Orthostatic hypotension: Status: Acute Plan This is a 62-year-old female with pertinent history of insulin-dependent diabetes mellitus, essential hypertension, coronary artery disease, peripheral vascular disease, peripheral neuropathy who presents to the emergency department for evaluation of presyncope. Orthostatic presyncope. orthostatic blood pressure remains positive this morning will give gentle IVF and repeat in AM if persistently + will involve nephrology Insulin-dependent diabetes mellitus on treseba at baseline - converted to formular lantus follow SSI Essential hypertension was continued on Lisinopril Coronary artery disease: On aspirin and ezetimibe. Not on statin. Continue ranolazine seen by cardiology - anneliese desai, no new EKG changes, rec outpatient diagnostic angiogram Peripheral vascular disease. continue low dose Xarelto, aspirin Peripheral neuropathy: On gabapentin and Cymbalta Full code attending - dr. squires need ongoing inpatient stay for IVF/orthostatic hypotension Time Spent With Patient Time: Total time managing care of this patient today ____ minutes. Quality Stroke Does the patient have a stroke diagnosis?: No VTE Prior VTE?: No VTE Risk Level:: Medical - moderate - high VTE Device Contraindication: Treatment Not Indicated VTE Drug Contraindication: N/A - Med Ordered
--- NOTE | 2023-03-28 20:10 | PC.NURSE ---
Report to Francie JEFFRIES on [facility].
[2023-03-28 20:43] LABS: Glucose, Whole Blood 189 mg/dL (60-115)
[2023-03-28] MEDS: DULoxetine HCl 60 MG CAPSULE.DR PO (20:57)
[2023-03-28] MEDS: Ranolazine 500 MG TAB.ER.12H 1000 MG PO (20:57)
[2023-03-28] MEDS: cilostazoL 100 MG TABLET PO (20:57)
[2023-03-28] MEDS: Ezetimibe 10 MG TABLET PO (20:57)
[2023-03-28] MEDS: Aspirin Enteric Coated 81 MG TABLET.DR PO (20:58)
[2023-03-28] MEDS: traZODone HCL 25 MG HALFTAB PO (22:07)
[2023-03-29] VITALS (10 sets, daily range): BP systolic 133–194; BP diastolic 54–94; PULSE 71–84; RESP 16–20; TEMP 36.1–37.1; O2SAT 95–100
[2023-03-29] MEDS: Melatonin 3 MG TABLET 6 MG PO (02:57)
[2023-03-29 08:01] LABS: Glucose, Whole Blood 115 mg/dL (60-115)
[2023-03-29] MEDS: Gabapentin 600 MG TABLET PO ×3 (08:12→21:21)
[2023-03-29] MEDS: Ranolazine 500 MG TAB.ER.12H 1000 MG PO ×2 (08:12→21:22)
[2023-03-29] MEDS: lisinopriL 40 MG TABLET PO (08:13)
[2023-03-29] MEDS: 0.9 % Sodium Chloride Flush 3 ML SYRINGE IVFLUSH ×2 (08:13→21:22)
[2023-03-29] MEDS: Rivaroxaban 10 MG TABLET 2.5 MG PO ×2 (09:19→21:21)
--- NOTE | 2023-03-29 11:24 | P.PNCA_ITS ---
Subjective Subjective Date of Service: 03/29/23 Interval history: Seen and examined at bedside Denying chest or arm pain. She had some dizziness when she got out of bed. Physical Exam Vital Signs: Last Vital Signs Temp 97.0 F 03/29/23 08:00 Pulse 81 03/29/23 11:05 Resp 18 03/29/23 08:00 BP 171/72 H 03/29/23 11:05 Pulse Ox 99 03/29/23 08:00 O2 Del Method Room Air 03/29/23 08:00 BMI result Body Mass Index 28.2 GENERAL APPEARANCE: in no acute distress, pleasant. NECK: no carotid bruit, no jugular venous distention. SKIN: no suspicious lesions, warm and dry. HEART: no murmurs, regular rate and rhythm. LUNGS: clear to auscultation bilaterally. ABDOMEN: soft, nontender. EXTREMITIES: no edema. PERIPHERAL PULSES: equal. NEUROLOGIC: No gross deficits, AAO X 3 Objective Labs and Meds 03/28/23 04:41 03/28/23 04:41 Lab results: Laboratory Results - last 24 hr 03/28/23 03/28/23 03/28/23 14:18 17:05 20:37 POC Glucose 190 H 169 H 189 H 03/29/23 07:58 POC Glucose 115 Progress Note: A&P Assessment and plan (1) Stable angina: Status: Acute (2) Dizziness: Status: Acute Plan Pleasant 62 year female with previous coronary disease and occluded vein graft for which she had drug-eluting stent placed to right coronary artery while she was in [place], peripheral vascular disease status post interventions in the lower extremities who is presenting with syncope. She previously had orthostasis and syncope as well as 1 episode of hypoglycemia. She is describing some dizziness when she got out of bed today. Please check orthostatic vital signs and document them. Her blood pressure in general is elevated. If not orthostatic then blood pressure medications should be titrated. She is on lisinopril 40 mg. Would favor adding amlodipine 2.5 mg in that case. Further workup for chest pain as outpatient. She will need diagnostic angiogram. Thank you for allowing me to participate in the care of your patient. Please feel free to contact me if you have any questions. Time Spent With Patient Time: Total time managing care of this patient today ____ minutes. Progress Note: Quality Stroke Does the patient have a stroke diagnosis?: No Procedures Date of Service Date of Service: 03/29/23
[2023-03-29 11:46] LABS: Glucose, Whole Blood 191 mg/dL (60-115)
[2023-03-29] MEDS: Insulin Lispro 100 UNIT/ML 3 ML VIAL SUBCUT ×2 (11:59→21:25)
[2023-03-29] MEDS: Lactated Ringers 500 ML 100 ML IVCONT (13:13)
--- NOTE | 2023-03-29 14:51 | HO.PM.IMPN ---
Subjective Subjective Date of Service: 03/29/23 Interval History: seen and examined this morning follow up for dizziness remains dizzy upon standing, orthostatic blood pressure still + no chest pain Review of Systems Review of Systems: Yes all other systems are reviewed and are negative Constitutional Constitutional: Denies chills and Denies fever(s) ENT Ears, Nose, Mouth, and Throat: Reports dizziness Cardiovascular Cardiovascular: Denies chest pain and Denies palpitations Neurologic Neurologic: Reports dizziness Endocrine Endocrine: Denies palpitations Physical Exam Vital Signs: Vital Signs: Last Vital Signs Temp 97.1 F 03/29/23 12:00 Pulse 80 03/29/23 12:00 Resp 18 03/29/23 12:00 BP 144/54 H 03/29/23 12:00 Pulse Ox 98 03/29/23 12:00 O2 Del Method Room Air 03/29/23 12:00 BMI result Body Mass Index 28.2 Const: General: cooperative, comfortable, alert and awake Nutritional Appearance: average body habitus Orientation/consciousness: patient oriented x3 Resp: Effort & Inspection: normal respiratory effort, able to speak in complete sentences, no respiratory distress and no use of accessory muscles Cardio: Rate: regular rate GI: Inspection: No distended Palpation (GI): Soft to palpation and nontender Neuro: General: patient oriented x3, moves all extremities and CN's II-XI intact bilaterally Extrem: General: Yes no pedal edema Objective Data Active Medications Acetaminophen (Acetaminophen 325 Mg Tablet) 650 mg PO Q6H PRN PRN Reason: Pain, Mild (Pain Scale 1-3) Last Admin: 03/28/23 19:57 Dose: 650 mg Documented By: DASHAWN Albuterol Sulfate (Albuterol Sulfate 90 Mcg 8 Gm Inhaler) 2 puff INHALE Q4H PRN PRN Reason: wheezing Aspirin (Aspirin Enteric Coated 81 Mg Tablet.) 81 mg PO BEDTIME [facility] Last Admin: 03/28/23 20:58 Dose: 81 mg Documented By: LEONARDO Cilostazol (Cilostazol 100 Mg Tablet) 100 mg PO BEDTIME [facility] Last Admin: 03/28/23 20:57 Dose: 100 mg Documented By: LEONARDO Dextrose (Dextrose 50 % 25 Gm/50 Ml Syringe) 25 gm IVPUSH Q15M PRN; Protocol PRN Reason: per Hypoglycemia Standing Ord. Duloxetine HCl (Duloxetine Hcl 60 Mg Capsule.) 60 mg PO BEDTIME [facility] Last Admin: 03/28/23 20:57 Dose: 60 mg Documented By: LEONARDO Ezetimibe (Ezetimibe 10 Mg Tablet) 10 mg PO BEDTIME [facility] Last Admin: 03/28/23 20:57 Dose: 10 mg Documented By: LEONARDO Gabapentin (Gabapentin 600 Mg Tablet) 600 mg PO TID [facility] Last Admin: 03/29/23 08:12 Dose: 600 mg Documented By: KAYLA Glucose (Glucose Gel 15 Gm Gel..Gram.) 15 gm PO Q15M PRN; Protocol PRN Reason: per Hypoglycemia Standing Ord. Lactated Ringer's (Lr) 500 mls @ 100 mls/hr IVCONT .Q5H [facility] Stop: 03/29/23 18:14 Last Admin: 03/29/23 13:13 Dose: 100 mls/hr Documented By: KAYLA Insulin Glargine (Insulin Glargine,Hum.Rec.Anlog 100 Unit/Ml 10 Ml Vial) 20 unit SUBCUT BEDTIME [facility] Last Admin: 03/28/23 20:57 Dose: 20 unit Documented By: LEONARDO Insulin Human Lispro (Insulin Lispro 100 Unit/Ml 3 Ml Vial) 0 unit SUBCUT QIDACHS [facility]; Protocol Last Admin: 03/29/23 11:59 Dose: 2 unit Documented By: KAYLA Lisinopril (Lisinopril 40 Mg Tablet) 40 mg PO DAILY [facility]; Protocol Last Admin: 03/29/23 08:13 Dose: 40 mg Documented By: KAYLA Melatonin (Melatonin 3 Mg Tablet) 6 mg PO BEDTIME PRN PRN Reason: Insomnia Last Admin: 03/29/23 02:57 Dose: 6 mg Documented By: LEONARDO Omeprazole (Omeprazole 20 Mg Capsule.) 20 mg PO DAILY@1630 PRN PRN Reason: Heartburn Ondansetron HCl (Ondansetron Hcl 4 Mg/2 Ml Vial) 4 mg IVPUSH Q8H PRN PRN Reason: Nausea and Vomiting Ranolazine (Ranolazine 500 Mg Tab.Er.12h) 1,000 mg PO BID [facility] Last Admin: 03/29/23 08:12 Dose: 1,000 mg Documented By: KAYLA Rivaroxaban (Rivaroxaban 10 Mg Tablet) 2.5 mg PO BID [facility] Last Admin: 03/29/23 09:19 Dose: 2.5 mg Documented By: KAYLA Sodium Chloride (0.9 % Sodium Chloride Flush 3 Ml Syringe) 3 ml IVFLUSH QSHIFT [facility] Last Admin: 03/29/23 08:13 Dose: 3 ml Documented By: KAYLA Trazodone HCl (Trazodone Hcl 25 Mg Halftab) 25 mg PO BEDTIME PRN PRN Reason: Insomnia Last Admin: 03/28/23 22:07 Dose: 25 mg Documented By: LEONARDO Labs 03/28/23 04:41 03/28/23 04:41 Labs: Laboratory Results - last 24 hr 03/28/23 03/28/23 03/29/23 17:05 20:37 07:58 POC Glucose 169 H 189 H 115 03/29/23 11:22 POC Glucose 191 H Assessment and Plan (1) Stable angina: Status: Acute (2) Dizziness: Status: Acute Plan This is a 62-year-old female with pertinent history of insulin-dependent diabetes mellitus, essential hypertension, coronary artery disease, peripheral vascular disease, peripheral neuropathy who presents to the emergency department for evaluation of presyncope. Orthostatic presyncope orthostatic blood pressure remains positive this morning will give additional fluid and repeat in am if persistently + will involve nephrology Insulin-dependent diabetes mellitus on treseba at baseline - converted to lantus follow SSI Essential hypertension continued Lisinopril when orthostatics negative consider adding norvasc 2.5 for better bp control Coronary artery disease: On aspirin and ezetimibe. Not on statin. Continue ranolazine seen by cardiology - trop low, no new EKG changes, rec outpatient diagnostic angiogram Peripheral vascular disease. continue low dose Xarelto, aspirin Peripheral neuropathy: On gabapentin and Cymbalta Full code attending - dr. dao need ongoing inpatient stay for IVF/orthostatic hypotension Time Spent With Patient Time: Total time managing care of this patient today ____ minutes. Quality Stroke Does the patient have a stroke diagnosis?: No VTE Prior VTE?: No VTE Risk Level:: Medical - moderate - high VTE Device Contraindication: Treatment Not Indicated VTE Drug Contraindication: N/A - Med Ordered
[2023-03-29 16:12] LABS: Glucose, Whole Blood 137 mg/dL (60-115)
[2023-03-29 20:04] LABS: Glucose, Whole Blood 163 mg/dL (60-115)
[2023-03-29] MEDS: Ezetimibe 10 MG TABLET PO (21:22)
[2023-03-29] MEDS: DULoxetine HCl 60 MG CAPSULE.DR PO (21:22)
[2023-03-29] MEDS: cilostazoL 100 MG TABLET PO (21:22)
[2023-03-29] MEDS: Aspirin Enteric Coated 81 MG TABLET.DR PO (21:22)
[2023-03-29] MEDS: Insulin Glargine,Hum.rec.anlog 100 UNIT/ML 10 ML VIAL 20 UNIT SUBCUT (21:23)
[2023-03-29] MEDS: traZODone HCL 50 MG TABLET PO (22:00)
[2023-03-30] VITALS (7 sets, daily range): BP systolic 117–177; BP diastolic 48–78; PULSE 68–82; RESP 18–20; TEMP 36.4–36.9; O2SAT 98–100
[2023-03-30] MEDS: Ranolazine 500 MG TAB.ER.12H 1000 MG PO (07:35)
[2023-03-30] MEDS: lisinopriL 40 MG TABLET PO (07:35)
[2023-03-30] MEDS: Gabapentin 600 MG TABLET PO (07:35)
[2023-03-30] MEDS: 0.9 % Sodium Chloride Flush 3 ML SYRINGE IVFLUSH (07:36)
[2023-03-30 07:39] LABS: Glucose, Whole Blood 203 mg/dL (60-115)
[2023-03-30] MEDS: Insulin Lispro 100 UNIT/ML 3 ML VIAL SUBCUT (07:56)
[2023-03-30] MEDS: Rivaroxaban 10 MG TABLET 2.5 MG PO (07:58)
--- NOTE | 2023-03-30 10:34 | P.PNIM_ITS ---
Subjective Subjective Date of Service: 03/30/23 Interval History: seen and examined this morning follow up for dizziness remains dizzy upon standing, orthostatic blood pressure still + no chest pain Review of Systems Review of Systems: Yes all other systems are reviewed and are negative Constitutional Constitutional: Denies chills and Denies fever(s) ENT Ears, Nose, Mouth, and Throat: Reports dizziness Cardiovascular Cardiovascular: Denies chest pain and Denies palpitations Neurologic Neurologic: Reports dizziness Endocrine Endocrine: Denies palpitations Physical Exam 2 Vital Signs: Vital Signs: Last Vital Signs Temp 97.5 F 03/30/23 07:11 Pulse 79 03/30/23 07:51 Resp 18 03/30/23 07:11 BP 117/48 L 03/30/23 07:51 Pulse Ox 99 03/30/23 07:11 O2 Del Method Room Air 03/30/23 07:11 BMI result Body Mass Index 28.2 Objective Data Active Medications Acetaminophen (Acetaminophen 325 Mg Tablet) 650 mg PO Q6H PRN PRN Reason: Pain, Mild (Pain Scale 1-3) Last Admin: 03/28/23 19:57 Dose: 650 mg Documented By: DASHAWN Albuterol Sulfate (Albuterol Sulfate 90 Mcg 8 Gm Inhaler) 2 puff INHALE Q4H PRN PRN Reason: wheezing Aspirin (Aspirin Enteric Coated 81 Mg Tablet.) 81 mg PO BEDTIME [facility] Last Admin: 03/29/23 21:22 Dose: 81 mg Documented By: LAUREN Cilostazol (Cilostazol 100 Mg Tablet) 100 mg PO BEDTIME [facility] Last Admin: 03/29/23 21:22 Dose: 100 mg Documented By: LAUREN Dextrose (Dextrose 50 % 25 Gm/50 Ml Syringe) 25 gm IVPUSH Q15M PRN; Protocol PRN Reason: per Hypoglycemia Standing Ord. Duloxetine HCl (Duloxetine Hcl 60 Mg Capsule.) 60 mg PO BEDTIME [facility] Last Admin: 03/29/23 21:22 Dose: 60 mg Documented By: LAUREN Ezetimibe (Ezetimibe 10 Mg Tablet) 10 mg PO BEDTIME [facility] Last Admin: 03/29/23 21:22 Dose: 10 mg Documented By: LAUREN Gabapentin (Gabapentin 600 Mg Tablet) 600 mg PO TID [facility] Last Admin: 03/30/23 07:35 Dose: 600 mg Documented By: CAROLEE Glucose (Glucose Gel 15 Gm Gel..Gram.) 15 gm PO Q15M PRN; Protocol PRN Reason: per Hypoglycemia Standing Ord. Insulin Glargine (Insulin Glargine,Hum.Rec.Anlog 100 Unit/Ml 10 Ml Vial) 20 unit SUBCUT BEDTIME [facility] Last Admin: 03/29/23 21:23 Dose: 20 unit Documented By: LAUREN Insulin Human Lispro (Insulin Lispro 100 Unit/Ml 3 Ml Vial) 0 unit SUBCUT QIDACHS [facility]; Protocol Last Admin: 03/30/23 07:56 Dose: 4 unit Documented By: CAROLEE Lisinopril (Lisinopril 40 Mg Tablet) 40 mg PO DAILY [facility]; Protocol Last Admin: 03/30/23 07:35 Dose: 40 mg Documented By: CAROLEE Melatonin (Melatonin 3 Mg Tablet) 6 mg PO BEDTIME PRN PRN Reason: Insomnia Last Admin: 03/29/23 02:57 Dose: 6 mg Documented By: LEONARDO Omeprazole (Omeprazole 20 Mg Capsule.Dr) 20 mg PO DAILY@1630 PRN PRN Reason: Heartburn Ondansetron HCl (Ondansetron Hcl 4 Mg/2 Ml Vial) 4 mg IVPUSH Q8H PRN PRN Reason: Nausea and Vomiting Ranolazine (Ranolazine 500 Mg Tab.Er.12h) 1,000 mg PO BID [facility] Last Admin: 03/30/23 07:35 Dose: 1,000 mg Documented By: CAROLEE Rivaroxaban (Rivaroxaban 10 Mg Tablet) 2.5 mg PO BID [facility] Last Admin: 03/30/23 07:58 Dose: 2.5 mg Documented By: CAROLEE Sodium Chloride (0.9 % Sodium Chloride Flush 3 Ml Syringe) [facility] Last Admin: 03/30/23 07:36 Dose: 3 ml Documented By: CAROLEE Trazodone HCl (Trazodone Hcl 50 Mg Tablet) 50 mg PO BEDTIME PRN PRN Reason: Insomnia Last Admin: 03/29/23 22:00 Dose: 50 mg Documented By: LAUREN Labs 03/28/23 04:41 03/28/23 04:41 Labs: Laboratory Results - last 24 hr 10/13/23 10/13/23 10/13/23 11:22 16:05 19:58 POC Glucose 191 H 137 H 163 H 03/30/23 07:13 POC Glucose 203 H Assessment and Plan (1) Stable angina: Status: Acute (2) Dizziness: Status: Acute Plan This is a 62-year-old female with pertinent history of insulin-dependent diabetes mellitus, essential hypertension, coronary artery disease, peripheral vascular disease, peripheral neuropathy who presents to the emergency department for evaluation of presyncope. Orthostatic presyncope orthostatic blood pressure remains positive this morning nephrology consult pending Insulin-dependent diabetes mellitus on treseba at baseline - converted to lantus follow SSI Essential hypertension continued Lisinopril when orthostatics negative consider adding norvasc 2.5 for better bp control Coronary artery disease On aspirin and ezetimibe. Continue ranolazine seen by cardiology - anneliese desai, no new EKG changes, rec outpatient diagnostic angiogram Peripheral vascular disease. continue low dose Xarelto, aspirin Peripheral neuropathy On gabapentin and Cymbalta Full code attending - dr. Anderson need ongoing inpatient stay for IVF/orthostatic hypotension Time Spent With Patient Time: Total time managing care of this patient today ____ minutes. Quality Stroke Does the patient have a stroke diagnosis?: No VTE Prior VTE?: No VTE Risk Level:: Medical - moderate - high VTE Device Contraindication: Treatment Not Indicated VTE Drug Contraindication: N/A - Med Ordered
[2023-03-30 11:34] LABS: Glucose, Whole Blood 146 mg/dL (60-115)
--- NOTE | 2023-03-30 11:36 | CONS_ITS ---
DATE OF SERVICE: 03/30/2023 HISTORY OF PRESENT ILLNESS: I was asked to see patient to assist in evaluation and management of patient's orthostatic hypotension as she was admitted with a presyncopal episode. HISTORY OF PRESENT ILLNESS: In summary, the patient is a 62-year-old female with longstanding history of diabetes for over 30 years along with hypertension, coronary artery disease, peripheral vascular disease, along with diabetic neuropathy. She presented to the hospital feeling unwell for the past 1 to 2 weeks. Says that she is lightheaded when she goes from a sitting to a standing position. She says that she almost passed out, so she came to the hospital. Her only new medication is Ozempic, which she started about a month ago for diabetes. She denies any fever, sweats, or chills. No chest pain. No nausea, vomiting, or fever. PAST MEDICAL HISTORY: As mentioned includes stenosis of the left vertebral artery, history of a stroke, peripheral vascular disease, neuropathy, coronary artery disease, TIA, hypertension, diabetes. MEDICATIONS: Her medications on admission are noted in the records and in particular include Neurontin 600 mg 3 times a day, Zetia, lisinopril 40 mg once a day, metformin 1 g twice a day, omeprazole, Xarelto, Ozempic, insulin. Her medications currently are noted in the MAR. ALLERGIES: SHE HAS MULTIPLE ALLERGIES LISTED IN THE ELECTRONIC MEDICAL RECORD. SOCIAL HISTORY: She is an ex-smoker. No alcohol or illicit drug use. FAMILY HISTORY: Noted for coronary artery disease. REVIEW OF SYSTEMS: As noted above. PHYSICAL EXAMINATION: VITAL SIGNS: Blood pressure has been somewhat labile with systolic blood pressures as low as 117 and as high as 200. She had orthostatic blood pressure checks this morning, which showed her systolic blood pressure being 160 lying down and dropping to 120 standing up. Her heart rate remained in the 70s. HEAD: Atraumatic, normocephalic. NECK: Supple. Mucous membranes are moist. LUNGS: Clear. CARDIAC: Regular rate and rhythm without rub. ABDOMEN: Soft, nontender. Good bowel sounds. No CVA tenderness. EXTREMITIES: No edema. LABORATORY DATA: Creatinine ranging in the 1.0 to 1.4 range. Hemoglobin 12.2, hematocrit 38.5, white count 8.0. Urinalysis showed 1+ protein. There is no urine pzcyypr-[id number]-[id number] ratio to review. IMPRESSION: A 62-year-old longstanding diabetic with orthostatic hypotension with supine hypertension. I reviewed with Vee the challenges and manage the patient like this that has systolic hypertension with orthostatic hypotension. Need to make some lifestyle changes to try and prevent dropped blood pressure when she stands up. This would include using leg stockings placed in the morning, taken off at night. Also getting up slowly. Our goal is to try and optimize blood pressure control without accentuating the orthostasis. She is currently on lisinopril and we like her to stay on that if possible. I would avoid using any additional blood pressure medications. It could be that the Ozempic was accentuating her problems and would hold this medication as she was not having orthostasis in the past. We talked about when she goes to sleep, keeping her head of the bed elevated. She is a patient that we would see in our [facility] and do a 24-hour ambulatory blood pressure monitoring. This can help guide treatment as she may need short-acting blood pressure med at bedtime to try and treat her supine hypertension at least while she is sleeping. RECOMMENDATIONS: At this time include obtaining a urine albumin/creatinine ratio. Continue the lisinopril, decrease the dose 20 mg once a day and take at bedtime. Begin to make behavioral changes such as leg stockings and getting up slowly. Further evaluation as an outpatient. If she has severe orthostasis with symptoms, she may be a candidate for medications such as midodrine, Florinef, or droxidopa. We preferred not using any of these medications because they could raise her supine hypertension. MD JAREK Topete/TG / [id number]
--- NOTE | 2023-03-30 11:43 | P.DS_ITS ---
DS: Providers Provider Date of Service: 03/30/23 Date of admission: 03/27/23 23:55 Primary care physician: Maria R Sarmiento MD Consults: 03/28/23 10:40 Consult to Cardiology Routine Consulting Provider: [facility] Reason for consultation: CAD, near syncope, chest pain Has provider been notified: No 03/30/23 10:39 Consult to Nephrology Routine Consulting Provider: Jerry Lawler Reason for consultation: orthostatic htn DS: Diagnosis Discharge Diagnosis (1) Stable angina: Status: Acute (2) Dizziness: Status: Acute DS: Summary Hospital Course Hospital Course: History and physical as per admitting provider. This is a 62-year-old female with pertinent history of insulin-dependent diabetes mellitus, essential hypertension, coronary artery disease, peripheral vascular disease, peripheral neuropathy who presents to the emergency department for evaluation of presyncope. Patient states as she was in the shower, she felt dizzy and lightheaded and felt like she was about to pass out. Patient states she has been feeling unwell for the last 2-3 weeks and admits poor p.o. intake over the last 15 days. She is compliant with her home medications. Patient states she started ozempic about a month ago for her diabetes. Also had recent UTI which resolved. No fever, chills, chest discomfort, palpitations prior to the episode of presyncope. No shortness of breath, abdominal pain, changes in urinary or bowel habits. In the emergency department, orthostatic vital signs noted to be positive even after IV crystalloid resuscitation. 62-year-old woman treated for syncope and dizziness. Initially thought to be related to orthostatic hypotension but patient does have a history of vertebral artery stenosis, coronary artery disease so multiple other factors that may be contributing. She does not have any dizziness today and no profound orthostasis noted. She was seen and evaluated by Nephrology whom suggested outpatient hypertension clinic follow-up. She was also seen by cardiology recommended outpatient follow-up and will likely need outpatient cardiac catheterization to rule out cardiac source for syncope. Patient also reports many stressors at home, taking care of her ill brother, her history of diabetes with neuropathy and severe insomnia. For that she will go home with trazodone 50 mg as needed at bedtime, she can follow-up with her primary care provider and titrate up the medication as needed. Amlodipine 2.5 mg at bedtime will be added for better blood pressure control. Patient was encouraged to take a few minutes before changing position from lying to sitting to standing which will help to avoid any severe blood pressure changes. Diabetes mellitus. Continue home regimen Coronary artery disease. Continue aspirin and Zetia Peripheral vascular disease continue Xarelto Peripheral neuropathy. Continue gabapentin and Cymbalta Time Spent with Patient Time attestation: Total time managing care of this patient today ____ minutes. Discharge coordination time: Greater than 30 minutes Quality: Safe Use of Opioids Does Pt have an Active Cancer Diagnosis on the Problem List?: No Quality: Stroke Does the patient have a stroke diagnosis?: No Physical Exam Vital Signs: Vital Signs: Last Vital Signs Temp 97.5 F 03/30/23 11:10 Pulse 75 03/30/23 11:10 Resp 18 03/30/23 11:10 BP 150/70 H 03/30/23 11:10 Pulse Ox 99 03/30/23 11:10 O2 Del Method Room Air 03/30/23 11:10 BMI result Body Mass Index 28.2 Appearing in no acute distress head is normocephalic atraumatic eyes pupils are PERRLA sclera is anicteric mouth throat mucous membranes are intact and moist neck is supple no lymphadenopathy, no JVD noted lung sounds are clear to auscultation heart regular rate rhythm, clear S1, S2 positive bowel sounds, abdomen is soft, nontender neuro patient is alert x3, no focal deficits DS: Data Data Completed and Pending Labs on day of discharge: Laboratory Results - last 24 hr 03/29/23 03/29/23 03/29/23 11:22 16:05 19:58 POC Glucose 191 H 137 H 163 H 03/30/23 03/30/23 07:13 11:08 POC Glucose 203 H 146 H Discharge Plan Discharge Anticipated Discharge Date/Time: 03/30/23 11:34 Patient Disposition: Home, Self-Care Discharge Diagnosis: Syncope Labile blood pressure Vertebral artery disease Referrals: Maria R Sarmiento MD [Primary Care Provider] - 2 days Jerry Lawler MD [Physician] - 1 Week (Blood pressure follow-up) Discharge Medications: New trazodone 50 mg tablet 50 mg PO BEDTIME PRN (Reason: insomnia) Qty: 30 0RF amlodipine [Norvasc] 2.5 mg tablet 2.5 mg PO BEDTIME Qty: 30 0RF Continued albuterol sulfate 90 mcg/actuation HFA aerosol inhaler 2 puff INHALATION Q4-6H PRN (Reason: wheezing) fluticasone propionate 50 mcg/actuation spray,suspension 1 spray intranasal DAILY PRN (Reason: Allergy Symptoms) aspirin 81 mg tablet,delayed release (DR/EC) 81 mg PO BEDTIME cilostazol 100 mg tablet 100 mg PO BEDTIME duloxetine 60 mg capsule,delayed release(DR/EC) 60 mg PO BEDTIME ezetimibe 10 mg tablet 10 mg PO BEDTIME gabapentin 600 mg tablet 600 mg PO TID lisinopril 40 mg tablet 40 mg PO DAILY metformin 1,000 mg tablet 1,000 mg PO BID nitroglycerin 0.4 mg tablet, sublingual 0.4 mg sublingual Q5M PRN (Reason: Angina) omeprazole 20 mg capsule,delayed release(DR/EC) 40 mg PO BEDTIME PRN (Reason: Heartburn) ranolazine 1,000 mg tablet extended release 12 hr 1,000 mg PO BID Xarelto 2.5 mg tablet 2.5 mg PO BID ondansetron 4 mg tablet,disintegrating 4 mg PO TID insulin degludec [Tresiba U-100 Insulin] 100 unit/mL solution 25 unit subcut BEDTIME fexofenadine 180 mg Tablet 180 mg PO BEDTIME diphenhydramine HCl 25 mg Tablet 25 mg PO BEDTIME insulin aspart U-100 [Novolog FlexPen U-100 Insulin] 100 unit/mL (3 mL) Insulin Pen 1 sliding scale dose SUBCUT USEASDIRECTD Protocol: Insulin Correction Scale Less than or equal to 110 ---- Give (units): 0 111 to 150 Give (units): 0 151 to 200 Give (units): 2 201 to 250 Give (units): 4 251 to 300 Give (units): 6 301 to 350 Give (units): 8 Greater than 350 Give (units): 10 Call MD if Blood Glucose > : 350 insulin degludec [Tresiba U-100 Insulin] 100 unit/mL solution 3 unit subcut DAILY PRN (Reason: BS > 190) rosuvastatin 40 mg tablet 40 mg PO DAILY Ozempic 1 mg/dose (2 mg/1.5 mL) pen injector subcut SAEED Discharge Orders: Discharge Order (Routine); Ordered 03/30/23 Ordered By: Rebeca Lau Diet: Advance to usual diet Activity on Discharge: As tolerated Stand Alone Forms: Patient Portal Discharge page Care Plan Goals: Monitor blood pressure throughout the day and document You have been started on a new medication called amlodipine 2.5 mg at bedtime May use trazodone 50 mg at bedtime for sleep take 2 minutes to slowly change positions from laying to sitting and standing to avoid severe blood pressure changes Health Concerns: Syncope Labile blood pressure Vertebral artery disease Plan of Treatment: Follow-up with nephrology for blood pressure clinic Assessment: See discharge summary
--- NOTE | 2023-03-30 12:22 | MHC.CM.PN ---
Pt is medically cleared for D/C home self-care. Pts brother to transport her home.
== END 2023-03-30 13:30 | disposition home or self-care (01) ==
LOC: HO.ED 21:45 → HO.EDOVER 23:59 → HO.IMC 03-28 19:44
PROVIDERS: Physician Assistant; Physician Assistant Medical; Admitting Provider Student in an Organized Health Care Education/Training Program; Emergency Provider Internal Medicine; PCP Internal Medicine; Visit Provider Nurse Practitioner Acute Care
DX: R55 Syncope and collapse (principal); R09.89 Other specified symptoms and signs involving the circulatory and respiratory systems; M47.029 Vertebral artery compression syndromes, site unspecified; R06.02 Shortness of breath; E11.51 Type 2 diabetes mellitus with diabetic peripheral angiopathy without gangrene; E11.42 Type 2 diabetes mellitus with diabetic polyneuropathy; I20.89 Other forms of angina pectoris; I10 Essential (primary) hypertension; R07.9 Chest pain, unspecified; Z20.822 Contact with and (suspected) exposure to COVID-19; Z20.828 Contact with and (suspected) exposure to other viral communicable diseases; Z86.73 Personal history of transient ischemic attack (TIA), and cerebral infarction without residual deficits; Z79.4 Long term (current) use of insulin; Z79.899 Other long term (current) drug therapy; Z87.440 Personal history of urinary (tract) infections
CPT/HCPCS: 0241U; 36415; 71046; 80048; 80076; 81001; 82947; 83735; 84484; 85025; 93005; 96360; 96361; 96372; 99222; 99285

== ENCOUNTER → 2023-03-27 23:55 | Outpatient (BNV) | payer MEDICARE, MEDICAID, SELFPAY | PROVIDERS: Admitting Provider Student in an Organized Health Care Education/Training Program; Emergency Provider Internal Medicine; PCP Internal Medicine; Visit Provider Student in an Organized Health Care Education/Training Program | DX: I20.89 Other forms of angina pectoris (principal); R42 Dizziness and giddiness | CPT/HCPCS: 99222; 99232; 99239 ==

== ENCOUNTER → 2023-03-27 23:55 | Outpatient (BNV) | payer MEDICARE, MEDICAID, SELFPAY | PROVIDERS: Admitting Provider Student in an Organized Health Care Education/Training Program; Emergency Provider Internal Medicine; PCP Internal Medicine; Visit Provider Internal Medicine Cardiovascular Disease | DX: I20.89 Other forms of angina pectoris (principal); R42 Dizziness and giddiness | CPT/HCPCS: 99221; 99232 ==

== ENCOUNTER 2023-05-11 14:29 | Inpatient (IN) | payer MEDICARE, MEDICAID, SELFPAY ==
--- NOTE | ~2023-05-11 | XR_ITS ---
EXAMINATION: XR CHEST CLINICAL INFORMATION: Chest pain COMPARISON: None available. TECHNIQUE: 2 views of the chest were obtained. FINDINGS: The lungs are well-expanded and clear of acute process. The heart size and pulmonary vascularity is normal. There are median sternotomy sutures and mediastinal alphonso from previous intervention. No gross bony abnormality seen. XR/XR chest 2V IMPRESSION: No acute cardiopulmonary process seen
--- NOTE | 2023-05-11 14:30 | ECG_ITS ---
Test Reason : CHEST PAIN Blood Pressure : / mmHG Vent. Rate : 094 BPM Atrial Rate : 094 BPM P-R Int : 152 ms QRS Dur : 082 ms QT Int : 376 ms P-R-T Axes : 060 -68 057 degrees QTc Int : 470 ms Normal sinus rhythm Left anterior fascicular block ST elevation in Septal leads Anteroseptal infarct (cited on or before 31-JUL-2022) Abnormal ECG When compared with ECG of 27-MAR-2023 12:30, Nonspecific T wave abnormality, improved in Inferior leads Nonspecific T wave abnormality no longer evident in Lateral leads Referred By: Generic ED Physician Electronically Signed By:ERMIAS BOURNE MD
[2023-05-11 14:32] VITALS: BP 106/67; PULSE 95; RESP 18; TEMP 36.4; O2SAT 98; BMI 27.9
--- NOTE | 2023-05-11 14:33 | ED.CHESTPAIN ---
HPI - Chest Pain General Chief Complaint: Chest Pain Stated Complaint: chest pain took 2 nitros Time Seen by Provider: 05/11/23 17:21 Source: patient Mode of arrival: ambulatory Limitations: no limitations History of Present Illness HPI narrative: 62 yo w/ hx of HDL, HTN, DM, CAD, PVD with claudication, CABG with occluded vein graft to the right coronary artery status post PCI/stent presents to the ED today with chest pain with pain radiating to her right arm. Patient states that she was driving in her car at around 12:15 hours when she had gradual onset of pain in her chest. She runs or hand across her anterior chest when asked to localize the pain. She describes the pain is a pressure pain. The pain did radiate down her right arm. The pain was 8/10. She denied neck pain, jaw pain, back pain, lightheadedness or dizziness. She states she took 1 nitroglycerin with no relief for pain. She states she took a 2nd nitroglycerin 5 minutes later and eventually her pain resolved. The patient was hospitalized here from 03/27/2023 until 03/30/2023 for dizziness and occasional chest pain. At that time she was diagnosed with stable angina and dizziness possibly related orthostatic hypotension. 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 She states she is scheduled for a diagnostic cardiac catheterization on 05/17/2023 The patient states that since being discharged from the hospital, she has been having chest pain 1-2 times per week which come on at rest and or with exertion. She has had significant dyspnea on exertion but she states that this is unchanged x2 months. She states that over the past week, she has had increased episodes of chest pain with 1-2 episodes per day. She states that today's episode was more severe than in her previous episodes and last longer. Patient states she stopped her Xarelto and has not taken it for 1 week because she is scheduled for cardiac catheterization on 05/17/2023. Related Data Home Medications Medication Instructions Recorded Confirmed albuterol sulfate 90 mcg/actuation 2 puff inhalation Q4-6H PRN 08/12/22 03/27/23 aerosol inhaler wheezing fluticasone propionate 50 1 spray intranasal DAILY PRN 08/12/22 03/27/23 mcg/actuation nasal Allergy Symptoms spray,suspension aspirin 81 mg tablet,delayed 81 mg PO BEDTIME 09/06/22 03/27/23 release cilostazol 100 mg tablet 100 mg PO BEDTIME 09/06/22 03/27/23 duloxetine 60 mg capsule,delayed 60 mg PO BEDTIME 09/06/22 03/27/23 release ezetimibe 10 mg tablet 10 mg PO BEDTIME 09/06/22 03/27/23 gabapentin 600 mg tablet 600 mg PO TID 09/06/22 03/27/23 lisinopril 40 mg tablet 40 mg PO DAILY 09/06/22 03/27/23 metformin 1,000 mg tablet 1,000 mg PO BID 09/06/22 03/27/23 nitroglycerin 0.4 mg sublingual 0.4 mg sublingual Q5M PRN Angina 09/06/22 03/27/23 tablet omeprazole 20 mg capsule,delayed 40 mg PO BEDTIME PRN Heartburn 09/06/22 03/28/23 release ranolazine 1,000 mg 1,000 mg PO BID 09/06/22 03/27/23 tablet,extended release,12 hr rivaroxaban 2.5 mg tablet (Xarelto) 2.5 mg PO BID 09/06/22 03/27/23 semaglutide 1 mg/dose (2 mg/1.5 mg subcut SAEED 09/06/22 09/06/22 mL) subcutaneous pen injector (Ozempic) diphenhydramine HCl 25 mg tablet 25 mg PO BEDTIME 03/27/23 03/27/23 fexofenadine 180 mg tablet 180 mg PO BEDTIME 03/27/23 03/27/23 insulin aspart U-100 100 unit/mL 1 sliding scale dose subcut 03/27/23 03/27/23 (3 mL) subcutaneous pen (Novolog USEASDIRECTD FlexPen U-100 Insulin aspart) insulin degludec 100 unit/mL 3 unit subcut DAILY PRN BS > 190 03/27/23 03/27/23 subcutaneous solution (Tresiba U-100 Insulin) insulin degludec 100 unit/mL 25 unit subcut BEDTIME 03/27/23 03/27/23 subcutaneous solution (Tresiba U-100 Insulin) ondansetron 4 mg disintegrating 4 mg PO TID 03/27/23 03/27/23 tablet rosuvastatin 40 mg tablet 40 mg PO DAILY 03/28/23 03/28/23 Previous Rx's Medication Instructions Recorded amlodipine 2.5 mg tablet (Norvasc) 2.5 mg PO BEDTIME #30 tabs 03/30/23 trazodone 50 mg tablet 50 mg PO BEDTIME PRN insomnia #30 03/30/23 tabs Allergies Allergy/AdvReac Type Severity Reaction Status Date / Time apple [Apple] Allergy Unknown APPLE PEEL Verified 05/11/23 14:38 - ITCHY THROAT nut - unspecified [nut] Allergy Unknown ITCHY Verified 05/11/23 14:38 THROAT pineapple [Pineapple] Allergy Unknown ITCHY Verified 05/11/23 14:38 THROAT acetaminophen [From Percocet] Allergy Anxiety Verified 05/11/23 14:38 amoxicillin Allergy Itching Verified 05/11/23 14:38 oxycodone [From Percocet] Allergy Anxiety Verified 05/11/23 14:38 lim AdvReac Intermediate Swelling Verified 05/11/23 14:38 DUST Allergy Unknown EYES, NOSE Uncoded 05/11/23 14:38 ITCHY - ASTHMA GRASS Allergy Unknown ITCHY EYES Uncoded 05/11/23 14:38 - THROAT pet dander AdvReac Mild Itchy Eyes Uncoded 05/11/23 14:38 Review of Systems Review of Systems: Yes all other systems are reviewed and are negative [facility] Past Medical History [facility] Narrative: Social history: Patient denies tobacco use. She occasionally drinks alcohol. She denies drug use. Medical History Dizziness Orthostatic hypotension Stenosis of left vertebral artery CVA (cerebral vascular accident) Peripheral vascular disease Neuropathy Coronary artery disease Brain TIA Hypertension Diabetes Surgical History History of angioplasty of peripheral vessel Status post aorto-coronary artery bypass graft Family History Family History Father Coronary artery disease involving coronary bypass graft Mother No problems noted. Social History Alcohol intake: never Patient Tobacco Use Status: Former Tobacco user Years Smoked: Remote smoking, quit in her 30s Smoked in Last 30 Days: No Use of substances other than those prescribed or required for medical reasons: No Advance Directives: No Advance Directives Information Provided: No Patient : No service: No Current occupational status: unemployed Physical Exam Vital Signs: Vital Signs: Last Vital Signs Temp 98.4 F 05/11/23 17:09 Pulse 78 05/11/23 18:43 Resp 16 05/11/23 18:43 BP 137/66 05/11/23 18:43 Pulse Ox 95 05/11/23 18:43 O2 Del Method Room Air 05/11/23 18:43 BMI result Body Mass Index 27.9 Vital signs were normal Exam General: Awake, alert in no distress Head: Normocephalic, atraumatic EENT: PERRL, Lids normal, sclera normal, conjunctiva normal, nose normal , ears normal, throat without erythema or exudates Neck: Supple, no adenopathy, no trachea midline or C-spine tenderness Lung: breath sounds symmetric, no wheezing, rales or rhonchi Chest: symmetric movement, nontender Heart: regular rate and rhythm, normal S1, S2 no murmurs or rubs Abdomen: soft, non-tender, nondistended, normal bowel sounds Back: no vertebral tenderness, no CVAT Extremities: no deformities, moves all extremities symmetrically Skin: no rashes, no lesion, normal color and warmth Neuro: Awake, alert, oriented, normal speech, cranial nerves intact, moves all extremities symmetrically Psych: Pleasant, cooperative Course Course Course Narrative: RME:?62 yo w/ hx of HDL, HTN, DM, CAD, PVD presents to the ED today with diffuse chest pain w/ radiation down right arm intermittently x1 week. Reports taking 2 nitro this morning w/ symptom relief after the second. Describes this as a pressure sensation. No pain at present. Additionally endorses general fatigue. Denies diaphoresis, SOB, N/V. Hx of open heart surgery. No recent travel/long car rides. PE: rrr. lungs cta b/l. NAD, nontoxic appearing. Plan: labs, ekg, cxr Full HPI, ROS and PE to be performed by the primary ED provider. Medical Decision Making Medical Decision Making [facility] Narrative: 62 yo w/ hx of HDL, HTN, DM, CAD, PVD with claudication, CABG with occluded vein graft to the right coronary artery status post PCI/stent presents to the ED today with chest pressure, 8/10 with pain radiating to her right arm the began around 12:15 hours while she was driving her car. Patient took 2 sublingual nitroglycerins the pain subsided after approximately 30 minutes. Patient has been having similar chest pain 1-2 episodes per week for the past month however over the last week she has had 1-2 episodes per day, these episodes can come on at rest or with exertion. Today's episode was more severe than her previous episodes. Patient is scheduled for a diagnostic cardiac catheterization on 05/17/2023 at [facility]. Patient states she stopped her Xarelto 1 week prior because of the scheduled cardiac catheterization. Vital signs were normal. Examination was unremarkable. Following evaluation was ordered: CBC, BMP, magnesium, troponin, urinalysis, influenza, RSV, flu 20:28 Patient's laboratory evaluation was unremarkable except for an elevated glucose at 236. Patient's 1st troponin was 12.1. Repeat troponin was 14 which is a delta of less than 50% I did discuss the patient's presentation with the covering cardiology, Dr. Le. Given the patient's change in her anginal pattern, patient may now have unstable angina and he recommended the patient be admitted for further management , placed on heparin until it cardiac catheterization can be obtained. I will discuss admission with the covering hospitalist. Differential Diagnosis Differential Diagnoses: The differential diagnosis associated with the presentation includes Differential diagnosis includes was not limited to myocardial infarction, myocardial ischemia, stable angina, unstable angina, chest wall pain Admission/Observation Consideration of admission/observation: Escalation of care including admission/observation considered Consult Healthcare Provider Management of the patient was discussed with: Hospitalist Lab Data [facility] Lab Attestation statement: I reviewed the patient's lab results. 05/11/23 15:03 05/11/23 15:03 Labs: Lab Results 05/11/23 05/11/23 05/11/23 Range/Units 15:03 17:06 18:05 WBC 9.7 (4.8-10.8) X10*3/uL RBC 4.77 (4.20-5.50) X10*6/uL Hgb 12.9 (12.0-16.0) g/dl Hct 38.6 (37.0-47.0) % MCV 80.9 (80.0-98.0) fL MCH 27.0 (27.0-33.0) pg MCHC 33.4 (31.0-35.0) g/dl RDW 14.4 (11.0-16.0) % Plt Count 246 (160-400) X10*3/uL MPV 10.6 (9.4-12.3) fL Immature Gran % (Auto) 0.3 (0.0-0.4) % Neut % (Auto) 67.8 (45-73) % Lymph % (Auto) 21.5 (20-40) % [place] % (Auto) 6.8 (2-11) % Eos % (Auto) 3.2 (0-4) % Baso % (Auto) 0.4 (0-2) % Lymph # (Auto) 2.1 (1.2-4.9) X10*3/uL [place] # (Auto) 0.7 (0.1-1.2) X10*3/uL Eos # (Auto) 0.3 (0.0-0.4) X10*3/uL Baso # (Auto) 0.0 (0.0-0.2) X10*3/uL Abs Immat Gran (auto) 0.03 (0.00-0.03) X10*3/uL Absolute Neuts (auto) 6.6 (2.0-8.3) x10*3/uL Absolute Nucleated RBC 0.000 (0.0-0.012) X10*3/uL Nucleated RBC % (auto) 0.0 (0.0-0.2) /100WBC PT 12.6 (11.1-13.3) SEC INR 1.0 (0.9-1.1) Sodium 141 (135-145) mmol/L Potassium 3.6 (3.3-5.1) mmol/L Chloride 105 (96-108) mmol/L Carbon Dioxide 26 (22-29) mmol/L Anion Gap 14 (12-20) BUN 7 L (9-16) mg/dL Creatinine 1.08 (0.5-1.4) mg/dL Estim Creat Clear Calc 47.3 Estimated GFR 51 Random Glucose 236 H (60-115) mg/dL Calcium 9.7 D (8.4-10.2) mg/dL Magnesium 1.8 (1.6-2.6) mg/dL Troponin I High Sens 12.1 D 14.8 (<3.5-17.0) ng/L Urine Color Yellow Urine Appearance Clear Urine pH 5.5 (5.0-9.0) Ur Specific [place] 1.015 (1.005-1.025) Urine Protein 30 (1+) H (Neg-Trace) mg/dL Urine Glucose (UA) >=1000 H (Negative) mg/dL Urine Ketones Negative (Negative) mg/dL Urine Blood Negative (Negative) Urine Nitrite Negative (Negative) Ur Leukocyte Esterase Negative (Negative) Urine RBC 0-2 (0-2) /HPF Urine WBC 0-5 (0-5) /HPF Ur Squamous Epith Cells 0-2 (0-2) /HPF Urine Bacteria None Seen (None Seen) Hyaline Casts 0-2 (0-2) /LPF Influenza Type A (PCR) NEGATIVE (Negative) Influenza Type B (PCR) NEGATIVE (Negative) RSV RNA Qual (PCR) NEGATIVE (Negative) SARS-CoV-2 RNA (RT-PCR) NEGATIVE (Negative) Independent Interpretation I performed an independent interpretation of an: EKG and Plain X-Ray Interpretation: My interpretation patient's chest x-ray is as follows: No acute disease My independent interpretation of the patient's 12 EKG is as follows: Normal sinus rhythm with a rate of 94, normal AR interval, QRS duration, QTC interval, Q-waves in leads 3 and AVF and V1 through V3, flattened T-wave in lead 3, no ST segment elevation, no ST segment depression, no PACs, no PVCs. When compared to EKG dated 03/27/2023, Q-waves are old, flattened T-wave in 3 is new, otherwise no other significant changes. Radiology Impression Discussion of test interpretation with radiology: I have reviewed the radiologist's reading. Radiologist Impression: XR chest 2V IMPRESSION: No acute cardiopulmonary process seen Dictated By: César Almaguer MD Critical Care Time Critical Care Time Critical Care Time: Yes Total Critical Care Time: 45 Attestation: Critical Care: The patient was critically ill with a high probability of imminent or life threatening deterioration. I spent greater than 30 minutes of discontinuous time evaluating the patient,delivering critical care at the bedside, discussing and evaluating pertinent data with consultants. Critical care time does not include time spent performing separately billable procedures or teaching. Total time spent performing critical care was 45 minutes. Discharge Plan Discharge Patient Disposition: Admitted As Inpatient Prescriptions: No Action albuterol sulfate 90 mcg/actuation HFA aerosol inhaler 2 puff INHALATION Q4-6H PRN (Reason: wheezing) fluticasone propionate 50 mcg/actuation spray,suspension 1 spray intranasal DAILY PRN (Reason: Allergy Symptoms) aspirin 81 mg tablet,delayed release (DR/EC) 81 mg PO BEDTIME cilostazol 100 mg tablet 100 mg PO BEDTIME duloxetine 60 mg capsule,delayed release(DR/EC) 60 mg PO BEDTIME ezetimibe 10 mg tablet 10 mg PO BEDTIME gabapentin 600 mg tablet 600 mg PO TID lisinopril 40 mg tablet 40 mg PO DAILY metformin 1,000 mg tablet 1,000 mg PO BID nitroglycerin 0.4 mg tablet, sublingual 0.4 mg sublingual Q5M PRN (Reason: Angina) omeprazole 20 mg capsule,delayed release(DR/EC) 40 mg PO BEDTIME PRN (Reason: Heartburn) ranolazine 1,000 mg tablet extended release 12 hr 1,000 mg PO BID Xarelto 2.5 mg tablet 2.5 mg PO BID ondansetron 4 mg tablet,disintegrating 4 mg PO TID insulin degludec [Tresiba U-100 Insulin] 100 unit/mL solution 25 unit subcut BEDTIME fexofenadine 180 mg Tablet 180 mg PO BEDTIME diphenhydramine HCl 25 mg Tablet 25 mg PO BEDTIME insulin aspart U-100 [Novolog FlexPen U-100 Insulin] 100 unit/mL (3 mL) Insulin Pen 1 sliding scale dose SUBCUT USEASDIRECTD Protocol: Insulin Correction Scale Less than or equal to 110 ---- Give (units): 0 111 to 150 Give (units): 0 151 to 200 Give (units): 2 201 to 250 Give (units): 4 251 to 300 Give (units): 6 301 to 350 Give (units): 8 Greater than 350 Give (units): 10 Call MD if Blood Glucose > : 350 insulin degludec [Tresiba U-100 Insulin] 100 unit/mL solution 3 unit subcut DAILY PRN (Reason: BS > 190) rosuvastatin 40 mg tablet 40 mg PO DAILY trazodone 50 mg tablet 50 mg PO BEDTIME PRN (Reason: insomnia) Qty: 30 0RF amlodipine [Norvasc] 2.5 mg tablet 2.5 mg PO BEDTIME Qty: 30 0RF Ozempic 1 mg/dose (2 mg/1.5 mL) pen injector subcut SAEED
--- NOTE | 2023-05-11 14:39 | PC.NURSE ---
EKG BEING COMPLETED ON ANOTHER PT
--- NOTE | 2023-05-11 15:07 | PC.NURSE ---
Pt states she has been experiencing diffuse chest pain accompanied by burning epigastric pain with an onset of today. Pt states she has a history of open heart surgery , HTN, and DM. She states that she is supposed to be seen this Saturday for a cardiac angioplasty and possible stent placement. Pt states she has been feeling dizzy for the past week and her remelt operator believes she may have a blockage in her heart and will need to remove it . Pt states she missed an appointment for bilateral leg ultrasound to check for DVT. Orders to follow; care ongoing.
[2023-05-11 15:08] LABS: MANUAL DIFF FLAG NO
[2023-05-11 15:09] LABS: Basophils Percent Auto 0.4 % (0-2); Eosinophils Absolute Auto 0.3 X10*3/uL (0.0-0.4); Eosinophils Percent Auto 3.2 % (0-4); Hematocrit 38.6 % (37.0-47.0); Hemoglobin 12.9 g/dl (12.0-16.0); Imm Gran Abs Auto 0.03 X10*3/uL (0.00-0.03); Imm Gran Pct Auto 0.3 % (0.0-0.4); Lymphocytes Absolute Auto 2.1 X10*3/uL (1.2-4.9); Lymphocytes Percent Auto 21.5 % (20-40); Mean Corpuscular HGB Conc 33.4 g/dl (31.0-35.0); Mean Corpuscular Volume 80.9 fL (80.0-98.0); Mean Platelet Volume 10.6 fL (9.4-12.3); Monocytes Absolute Auto 0.7 X10*3/uL (0.1-1.2); Monocytes Percent Auto 6.8 % (2-11); Neutrophils Absolute Auto 6.6 x10*3/uL (2.0-8.3); Neutrophils Percent Auto 67.8 % (45-73); Platelet Count 246 X10*3/uL (160-400); Red Blood Count 4.77 X10*6/uL (4.20-5.50); Red Cell Distribution Width 14.4 % (11.0-16.0); White Blood Count 9.7 X10*3/uL (4.8-10.8)
[2023-05-11 15:14] LABS: Prothrombin Time 12.6 SEC (11.1-13.3)
[2023-05-11 15:23] LABS: Anion Gap 14 (12-20); Blood Urea Nitrogen 7 mg/dL (9-16); Calcium 9.7 mg/dL (8.4-10.2); Carbon Dioxide 26 mmol/L (22-29); Chloride 105 mmol/L (96-108); Creatinine Clr Calc Pharmacy 47.3; Estimated Glomerular Filt Rate 51; Glucose Random 236 mg/dL (60-115); Magnesium 1.8 mg/dL (1.6-2.6); Potassium 3.6 mmol/L (3.3-5.1); Sodium 141 mmol/L (135-145)
[2023-05-11 15:28] VITALS: BP 141/74; PULSE 88; PULSE 91; RESP 20; TEMP 36.7; O2SAT 98
[2023-05-11 15:30] LABS: Troponin-I High Sensitivity 12.1 ng/L (<3.5-17.0)
--- NOTE | 2023-05-11 15:36 | PC.NURSE ---
Pt states she has a hx of DVT. Pt states she has had her legs full of stents and cannot recieve wash outs anymore.
[2023-05-11 17:09] VITALS: BP 143/57; PULSE 80; RESP 16; TEMP 36.9; O2SAT 98
[2023-05-11 17:17] LABS: Appearance Urine Clear; Color Urine Yellow; Glucose Urine UA >=1000 mg/dL (Negative); Leukocyte Esterase Urine Negative (Negative); Nitrite Urine Negative (Negative); PH 5.5 (5.0-9.0); Specific Gravity - Urine 1.015 (1.005-1.025); UMIC TRIGGER UACC YES; Urine Blood Negative (Negative); Urine Ketones Negative (Negative); Urine Protein 30 (1+) mg/dL (Neg-Trace)
[2023-05-11 17:22] LABS: Bacteria Urine None Seen (None Seen); Hyaline Casts Urine 0-2 /LPF (0-2); RBC Urine 0-2 /HPF (0-2); Squamous Epithelial Cell Urine 0-2 /HPF (0-2); WBC Urine 0-5 /HPF (0-5)
[2023-05-11 17:41] LABS: Influenza A PCR NEGATIVE (Negative); Influenza B PCR NEGATIVE (Negative); Resp Syncy Virus RNA Qual PCR NEGATIVE (Negative); SARS COV2 PCR INHOUSE NEGATIVE (Negative)
[2023-05-11 18:31] LABS: Troponin-I High Sensitivity 14.8 ng/L (<3.5-17.0)
[2023-05-11 18:43] VITALS: BP 137/66; PULSE 78; RESP 16; O2SAT 95
--- NOTE | 2023-05-11 19:46 | PC.NURSE ---
I assumed care of the pt at 1900. Pt is awake in bed, A&Ox4, GCS 15, with warm, dry skin. Pt requesting food and to go home. Per Dr. Montesinos, dispo is pending prepleater evaluation. Pt's troponin are negative but chest pain has been more frequent.Pt waiting prepleater dispo at this time.
[2023-05-11] MEDS: Aspirin 81 MG TAB.CHEW 324 MG PO (20:44)
[2023-05-11] MEDS: Heparin Sodium,Porcine 5,000 UNIT/ML VIAL 4000 UNIT IVPUSH (20:54)
[2023-05-11 20:55] VITALS: BMI 29.1
--- NOTE | 2023-05-11 21:00 | PC.NURSE ---
Addendum entered by Joselyn Guzman RN 05/11/23 21:02: I already gave 4,000 u of heparin, per original orders. After updated weight, pharmacy informed me that pt requires 200u more. Pharmacy is going to place an order for 200u, for a total of 4,200u IVPush prior to heparin drip. Original Note: Placed a 20gIV in the right forearm. Pt medicated per AUG. Pt's weight has been updated andpharmacy is currently working on heparin drip orders. Pt speaking with hospitalist at this time.
[2023-05-11 21:03] LABS: INTERNATIONAL NORM RATIO 1.1 (0.9-1.1); Prothrombin Time 13.2 SEC (11.1-13.3)
[2023-05-11] MEDS: Heparin Sodium,Porcine 5,000 UNIT/ML VIAL 200 UNIT IVPUSH (21:17)
[2023-05-11] MEDS: Heparin Sodium,Porcine/1/2NS 25,000 UNIT/250 ML IV.SOLN 8.39 UNIT IVCONT (21:22)
--- NOTE | 2023-05-11 21:31 | P.HPHOSP_ITS ---
<Statement entered by Willian Romero MD - 05/12/23 19:17> Pt seen and examined at bedside. for full H&P see below History of Present Illness Date of Service: 05/11/23 Attending physician on admission: Willian Romero Chief Complaint: chest pain 62-year-old female with history of hyperlipidemia, hypertension, insulin- dependent type 2 diabetes, PVD with claudication, CAD s/p CABG with occlusive vein graft to the RCA s/p PCI with stenting, and diabetic polyneuropathy as well as mood disorder presents to the ED earlier today following an episode of chest pain. She states around 14:30 [address] and developed sudden onset / retrosternal chest pressure like something was sitting on her chest with associated shortness of breath and radiation to the right arm. Denies any diaphoresis, nausea, vomiting, epigastric pain. She states she pulled her car over and took a dose of nitroglycerin without relief. She waited 5 minutes and took another dose of nitroglycerin with full resolution of symptoms. She states the whole episode lasted about 15 minutes. Has has had similar episodes of chest pain in the past. Was scheduled to have diagnostic cardiac cath on 05/16 after recent admission for chest pain and lighteadedness on 03/27. She has been holding her xarelto for this procedure. Currently asymptomatic. On arrival VSS. Hematology studies unremarkable. Renal function electrolyte levels normal. Initial troponin 12.1 (delta change from 03/27), repeat 14.8. UA unremarkable. Negative for influenza, COVID-19, RSV. Chest x-ray negative for any acute cardiopulmonary abnormality. EKG shows NSR, rate [address]/t wave abnormality, unchanged from prior ekgs. In the ED, received 324mg asa. ED provider discussed case with cardiology recommending admission for unstable angina on heparin drip per protocol. Review of Systems 2 Review of Systems: General: No fevers, malaise, unintentional weight loss HEENT: No blurred vision, diplopia. No sore throat, nasal congestion, rhinorrhea, sinus pain, ear pain Cardiovascular: +chest pain. No palpitations, diaphoresis, or leg edema Respiratory: +sob. No wheezing, cough GI: No abdominal pain, nausea, vomiting, diarrhea, constipation, melena, hematochezia : No dysuria, hematuria, increased urinary frequency, decreased urinary output MSK: No myalgia, back pain Neuro: No headaches, weakness, paresthesias Skin: No rashes or lesions [facility] Medical History Dizziness Orthostatic hypotension Stenosis of left vertebral artery CVA (cerebral vascular accident) Peripheral vascular disease Neuropathy Coronary artery disease Brain TIA Hypertension Diabetes Family History Father Coronary artery disease involving coronary bypass graft Mother No problems noted. Surgical History History of angioplasty of peripheral vessel Status post aorto-coronary artery bypass graft Alcohol intake: never Patient Tobacco Use Status: Former Tobacco user Years Smoked: Remote smoking, quit in her 30s Smoked in Last 30 Days: No Use of substances other than those prescribed or required for medical reasons: No Advance Directives: No Advance Directives Information Provided: No Patient : No service: No Current occupational status: unemployed Meds Allergies Allergy/AdvReac Type Severity Reaction Status Date / Time apple [Apple] Allergy Unknown APPLE PEEL Verified 05/11/23 14:38 - ITCHY THROAT nut - unspecified [nut] Allergy Unknown ITCHY Verified 05/11/23 14:38 THROAT pineapple [Pineapple] Allergy Unknown ITCHY Verified 05/11/23 14:38 THROAT acetaminophen [From Percocet] Allergy Anxiety Verified 05/11/23 14:38 amoxicillin Allergy Itching Verified 05/11/23 14:38 oxycodone [From Percocet] Allergy Anxiety Verified 05/11/23 14:38 lim AdvReac Intermediate Swelling Verified 05/11/23 14:38 DUST Allergy Unknown EYES, NOSE Uncoded 05/11/23 14:38 ITCHY - ASTHMA GRASS Allergy Unknown ITCHY EYES Uncoded 05/11/23 14:38 - THROAT pet dander AdvReac Mild Itchy Eyes Uncoded 05/11/23 14:38 Active Medications: Current Medications Acetaminophen (Acetaminophen 325 Mg Tablet) 650 mg PO Q6H PRN PRN Reason: Pain, Mild (Pain Scale 1-3) Amlodipine Besylate (Amlodipine Besylate 2.5 Mg Tablet) 2.5 mg PO BEDTIME AILIN; Protocol Dextrose (Dextrose 50 % 25 Gm/50 Ml Syringe) 25 gm IVPUSH Q15M PRN; Protocol PRN Reason: per Hypoglycemia Standing Ord. Docusate Sodium (Docusate Sodium 100 Mg Capsule) 100 mg PO DAILY PRN PRN Reason: Constipation Glucose (Glucose Gel 15 Gm Gel..Gram.) 15 gm PO Q15M PRN; Protocol PRN Reason: per Hypoglycemia Standing Ord. Heparin Sodium (Porcine) (Heparin Sodium,Porcine 5,000 Unit/Ml Vial) 2,800 unit 40 unit/kg (2800 unit) IVPUSH PROTOCOL BOLUS PRN; Protocol PRN Reason: 40 unit/kg - Heparin Protocol Heparin Sodium (Porcine) (Heparin Sodium,Porcine 5,000 Unit/Ml Vial) 5,600 unit 80 unit/kg (5600 unit) IVPUSH PROTOCOL BOLUS PRN; Protocol PRN Reason: 80 unit/kg - Heparin Protocol Heparin Sodium/Sodium Chloride (Heparin Sodium,Porcine/1/2ns) 25,000 unit in 250 mls @ 0 mls/hr IVCONT .Q0M AILIN; Protocol Last Admin: 05/11/23 21:22 Dose: 12 units/kg/hr, 8.39 mls/hr Insulin Glargine (Insulin Glargine,Hum.Rec.Anlog 100 Unit/Ml 10 Ml Vial) 19 unit SUBCUT BEDTIME AILIN Insulin Human Lispro (Insulin Lispro 100 Unit/Ml 3 Ml Vial) 0 unit SUBCUT QIDACHS AILIN; Protocol Nitroglycerin (Nitroglycerin 0.4 Mg Tab.Subl) 0.4 mg SUBLINGUAL Q5MX3 PRN PRN Reason: Chest Pain Ondansetron HCl (Ondansetron Hcl 4 Mg/2 Ml Vial) 4 mg IVPUSH Q8H PRN PRN Reason: Nausea and Vomiting Ranolazine (Ranolazine 500 Mg Tab.Er.12h) 1,000 mg PO BID AILIN Senna (Sennosides 8.6 Mg Tablet) 17.2 mg PO BEDTIME PRN PRN Reason: Constipation Sodium Chloride (0.9 % Sodium Chloride Flush 3 Ml Syringe) 3 ml IVFLUSH QSHIFT AILIN Trazodone HCl (Trazodone Hcl 50 Mg Tablet) 50 mg PO BEDTIME PRN PRN Reason: Insomnia Home Medications Medication Instructions Recorded Confirmed Last Taken Type albuterol sulfate 90 mcg/actuation 2 puff inhalation Q4-6H PRN 08/12/22 03/27/23 Unknown History aerosol inhaler wheezing fluticasone propionate 50 1 spray intranasal DAILY PRN 08/12/22 03/27/23 08/11/22 09:00 History mcg/actuation nasal Allergy Symptoms spray,suspension aspirin 81 mg tablet,delayed 81 mg PO BEDTIME 09/06/22 03/27/23 Unknown History release cilostazol 100 mg tablet 100 mg PO BEDTIME 09/06/22 03/27/23 Unknown History duloxetine 60 mg capsule,delayed 60 mg PO BEDTIME 09/06/22 03/27/23 Unknown History release ezetimibe 10 mg tablet 10 mg PO BEDTIME 09/06/22 03/27/23 Unknown History gabapentin 600 mg tablet 600 mg PO TID 09/06/22 03/27/23 Unknown History lisinopril 40 mg tablet 40 mg PO DAILY 09/06/22 03/27/23 Unknown History metformin 1,000 mg tablet 1,000 mg PO BID 09/06/22 03/27/23 Unknown History nitroglycerin 0.4 mg sublingual 0.4 mg sublingual Q5M PRN Angina 09/06/22 03/27/23 Unknown History tablet omeprazole 20 mg capsule,delayed 40 mg PO BEDTIME PRN Heartburn 09/06/22 03/28/23 Unknown History release ranolazine 1,000 mg 1,000 mg PO BID 09/06/22 03/27/23 Unknown History tablet,extended release,12 hr rivaroxaban 2.5 mg tablet (Xarelto) 2.5 mg PO BID 09/06/22 03/27/23 Unknown History semaglutide 1 mg/dose (2 mg/1.5 mg subcut SAEED 09/06/22 09/06/22 Unknown History mL) subcutaneous pen injector (Ozempic) diphenhydramine HCl 25 mg tablet 25 mg PO BEDTIME 03/27/23 03/27/23 Unknown History fexofenadine 180 mg tablet 180 mg PO BEDTIME 03/27/23 03/27/23 Unknown History insulin aspart U-100 100 unit/mL 1 sliding scale dose subcut 03/27/23 03/27/23 Unknown History (3 mL) subcutaneous pen (Novolog USEASDIRECTD FlexPen U-100 Insulin aspart) insulin degludec 100 unit/mL 3 unit subcut DAILY PRN BS > 190 03/27/23 03/27/23 Unknown History subcutaneous solution (Tresiba U-100 Insulin) insulin degludec 100 unit/mL 25 unit subcut BEDTIME 03/27/23 03/27/23 Unknown History subcutaneous solution (Tresiba U-100 Insulin) ondansetron 4 mg disintegrating 4 mg PO TID 03/27/23 03/27/23 Unknown History tablet rosuvastatin 40 mg tablet 40 mg PO DAILY 03/28/23 03/28/23 Unknown History Physical Exam 2 Vital Signs and Narrative: Vital Signs: Last Vital Signs Temp 98.4 F 05/11/23 17:09 Pulse 78 05/11/23 18:43 Resp 16 05/11/23 18:43 BP 137/66 05/11/23 18:43 Pulse Ox 95 05/11/23 18:43 O2 Del Method Room Air 05/11/23 18:43 BMI result Body Mass Index 29.1 Constitutional - Awake and Alert, No apparent distress Eyes - PERRLA, EOMI Cardiovascular - S1S2, RRR, No edema Respiratory - Normal lung expansion, Normal respiratory effort, No respiratory distress, CTA bilaterally Gastrointestinal - NT / ND; +BS; No rebound or guarding Extremities - no calf tenderness bilaterally, no swelling Skin - Warm/Dry Neurological - Alert & oriented x3 Psychological - Appropriate affect Results Labs 05/11/23 15:03 05/11/23 15:03 Labs: Laboratory Results - last 24 hr 05/11/23 05/11/23 05/11/23 15:03 17:06 20:53 MCV 80.9 MCH 27.0 MCHC 33.4 RDW 14.4 Plt Count 246 MPV 10.6 Immature Gran % (Auto) 0.3 Neut % (Auto) 67.8 Lymph % (Auto) 21.5 Dixon % (Auto) 6.8 Eos % (Auto) 3.2 Baso % (Auto) 0.4 Lymph # (Auto) 2.1 Dixon # (Auto) 0.7 Eos # (Auto) 0.3 Baso # (Auto) 0.0 Abs Immat Gran (auto) 0.03 Absolute Neuts (auto) 6.6 Absolute Nucleated RBC 0.000 Nucleated RBC % (auto) 0.0 PT 12.6 13.2 INR 1.0 1.1 Anion Gap 14 Estim Creat Clear Calc 47.3 Estimated GFR 51 Random Glucose 236 H Calcium 9.7 D Magnesium 1.8 Urine Color Yellow Urine Appearance Clear Urine pH 5.5 Ur Specific [place] 1.015 Urine Protein 30 (1+) H Urine Glucose (UA) >=1000 H Urine Ketones Negative Urine Blood Negative Urine Nitrite Negative Ur Leukocyte Esterase Negative Urine RBC 0-2 Urine WBC 0-5 Ur Squamous Epith Cells 0-2 Urine Bacteria None Seen Hyaline Casts 0-2 Influenza Type A (PCR) NEGATIVE Influenza Type B (PCR) NEGATIVE RSV RNA Qual (PCR) NEGATIVE SARS-CoV-2 RNA (RT-PCR) NEGATIVE Imaging Radiologist's Impressions: Impressions Chest X-Ray 05/11/23 15:46 IMPRESSION: No acute cardiopulmonary process seen Assessment and Plan (1) Angina pectoris, unstable: Status: Acute Plan 62-year-old female with history of hyperlipidemia, hypertension, insulin- dependent type 2 diabetes, PVD with claudication, CAD s/p CABG with occlusive vein graft to the RCA s/p PCI with stenting, and diabetic polyneuropathy as well as mood disorder admitted for unstable angina. #Unstable angina -background CAD, had been scheduled for diagnostic cardiac catheterization 05/16 -currently asymptomatic -Trops with delta change from 03/27 but normal at 12 -->14.8 -EKG negative for any acute ischemic changes -IV heparin per protocol -given 324mg asa, continue 81mg daily -Continue holding Xarelto -continue nitrate therapy, statin -echocardiogram -cardiology consult -cardiac diet -monitor on telemetry # [id number] type 2 diabetes -POC glucose -diabetic diet -dose adjusted basal insulin, Humalog on sliding scale -hold metformin # diabetic polyneuropathy -continue gabapentin # hypertension -blood pressure reasonably controlled -continue home antihypertensives # hyperlipidemia -continue statin # PA D with claudication -hold cilostazol, continue ASA #Mood disorder -continue home meds DVT prophylaxis- on heparin drip Full code Patient requires inpatient stay at least 2 midnights for management of unstable angina on heparin drip per protocol requiring expert consultation, close cardiac monitoring and will require probable transfer to tertiary care center for cardiac catheterization Quality Stroke Does the patient have a stroke diagnosis?: No VTE Prior VTE?: No VTE Risk Level:: Medical - moderate - high VTE Device Contraindication: Treatment Not Indicated VTE Drug Contraindication: N/A - Med Ordered
[2023-05-11 22:08] LABS: Glucose, Whole Blood 159 mg/dL (60-115)
[2023-05-11] MEDS: Insulin Glargine,Hum.rec.anlog 100 UNIT/ML 10 ML VIAL 19 UNIT SUBCUT (22:15)
[2023-05-11] MEDS: Insulin Lispro 100 UNIT/ML 3 ML VIAL SUBCUT (22:15)
[2023-05-11] MEDS: Gabapentin 600 MG TABLET PO (22:16)
[2023-05-11] MEDS: Ranolazine 500 MG TAB.ER.12H 1000 MG PO (22:16)
[2023-05-11] MEDS: amLODIPine Besylate 2.5 MG TABLET PO (22:16)
--- NOTE | 2023-05-11 22:21 | PC.NURSE ---
Attempted to call report at 22:21, nurse unavailable. Floor RN to call back for report
[2023-05-11 23:04] VITALS: BP 150/65; PULSE 78; RESP 16; TEMP 36; O2SAT 99
[2023-05-11] MEDS: traZODone HCL 50 MG TABLET PO (23:36)
[2023-05-11] MEDS: 0.9 % Sodium Chloride Flush 3 ML SYRINGE IVFLUSH (23:38)
[2023-05-12] VITALS: BP 150/65; PULSE 78
[2023-05-12 03:48] LABS: MANUAL DIFF FLAG NO
[2023-05-12 03:49] LABS: Basophils Absolute Auto 0.1 X10*3/uL (0.0-0.2); Basophils Percent Auto 0.8 % (0-2); Eosinophils Absolute Auto 0.5 X10*3/uL (0.0-0.4); Hematocrit 35.7 % (37.0-47.0); Hemoglobin 11.8 g/dl (12.0-16.0); Imm Gran Abs Auto 0.01 X10*3/uL (0.00-0.03); Imm Gran Pct Auto 0.1 % (0.0-0.4); Lymphocytes Absolute Auto 2.9 X10*3/uL (1.2-4.9); Mean Corpuscular HGB Conc 33.1 g/dl (31.0-35.0); Mean Corpuscular Hemoglobin 26.7 pg (27.0-33.0); Mean Corpuscular Volume 80.8 fL (80.0-98.0); Monocytes Absolute Auto 0.6 X10*3/uL (0.1-1.2); Monocytes Percent Auto 6.9 % (2-11); Neutrophils Absolute Auto 4.7 x10*3/uL (2.0-8.3); Neutrophils Percent Auto 53.2 % (45-73); Platelet Count 212 X10*3/uL (160-400); Red Blood Count 4.42 X10*6/uL (4.20-5.50); Red Cell Distribution Width 14.5 % (11.0-16.0); White Blood Count 8.8 X10*3/uL (4.8-10.8)
[2023-05-12 04:00] VITALS: BP 103/56; PULSE 73; RESP 18; TEMP 36.1; O2SAT 98
[2023-05-12 04:03] LABS: Anion Gap 12 (12-20); Blood Urea Nitrogen 7 mg/dL (9-16); Carbon Dioxide 25 mmol/L (22-29); Chloride 109 mmol/L (96-108); Estimated Glomerular Filt Rate > 60; Glucose Random 132 mg/dL (60-115); Sodium 142 mmol/L (135-145)
[2023-05-12 04:22] LABS: Prothrombin Time 12.7 SEC (11.1-13.3)
[2023-05-12 04:28] LABS: PTT Heparin Drip 112.5 SEC (53-77.9)
[2023-05-12] MEDS: Gabapentin 600 MG TABLET PO ×3 (05:32→20:01)
[2023-05-12] MEDS: Acetaminophen 325 MG TABLET 650 MG PO ×2 (07:08→16:55)
[2023-05-12 07:32] VITALS: BP 110/53; PULSE 68; RESP 18; TEMP 36.2; O2SAT 96
[2023-05-12 08:15] LABS: Glucose, Whole Blood 111 mg/dL (60-115)
[2023-05-12] MEDS: Ranolazine 500 MG TAB.ER.12H 1000 MG PO ×2 (08:32→20:01)
--- NOTE | 2023-05-12 10:56 | PHA.MEDREC ---
Pharmacy Consult ? Medication Reconciliation Pharmacy has completed the medication reconciliation. spoke with patient to confirm medications. She reports only taking xarelto once at night. She confirmed her insulin doses and directions. She reports using ozempic every saturday (said she had last week) even though last lease picker at [facility] was in december for a 28 day supply.
[2023-05-12 11:27] VITALS: BP 148/69; PULSE 73; RESP 18; TEMP 36.4; O2SAT 96
[2023-05-12 11:47] LABS: Glucose, Whole Blood 171 mg/dL (60-115)
[2023-05-12] MEDS: DULoxetine HCl 60 MG CAPSULE.DR PO (11:56)
[2023-05-12] MEDS: Atorvastatin Calcium 80 MG TABLET PO (11:56)
[2023-05-12] MEDS: lisinopriL 40 MG TABLET PO (11:56)
[2023-05-12] MEDS: Insulin Lispro 100 UNIT/ML 3 ML VIAL SUBCUT ×2 (11:58→21:07)
--- NOTE | 2023-05-12 12:30 | P.CONCA_ITS ---
History of Present Illness History of Present Illness Date of Service: 05/12/23 Requesting physician: Rebeca Lau Chief complaint: unstable angina Narrative: 62-year-old female who has known history of coronary artery disease with bypass surgery in the past with occlusion of saphenous vein graft to the right coronary artery and PCI to right coronary artery in [place]. She also has peripheral vascular disease with multiple interventions in the lower extremities. She was seen in March while she was the hospital with presyncope and chest pains. At that time there was orthostasis noted and after discussion our plan was to consider an outpatient diagnostic angiogram on her for her ongoing exertional chest discomfort. She had some personal issues and could not comfort angiography appointment. While driving her car yesterday she had severe chest tightness. She stop the car and took nitroglycerin and started driving the car again but her symptoms did not improve. She again stop the car and took another nitroglycerin and said that after that she started feeling better. Later she was sitting with her family and when she mentioned that she was having severe pains today they are short to go to the emergency department. In the ER she was ruled out but given severe pain at rest with background of exertional chest discomfort ongoing over the last few months it was decided to admit her as unstable angina. EKGs showing septal and inferior infarct, ECHO from August 2022 has shown hyperdynamic LV function with small left ventricular outflow tract gradient. No systolic anterior motion. She had a normal Lexiscan in August 2022. [facility] Past Medical History Medical History Dizziness Orthostatic hypotension Stenosis of left vertebral artery CVA (cerebral vascular accident) Peripheral vascular disease Neuropathy Coronary artery disease Brain TIA Hypertension Diabetes Family History Family History Father Coronary artery disease involving coronary bypass graft Mother No problems noted. Surgical History Surgical History History of angioplasty of peripheral vessel Status post aorto-coronary artery bypass graft Social History Household Members: Family Household Members Other:: brother and nephew Housing: Apartment Do you presently have visiting nurse or other home services: No Alcohol intake: never Patient Tobacco Use Status: Former Tobacco user Years Smoked: Remote smoking, quit in her 30s Smoked in Last 30 Days: No Patient Interested in Nicotine Replacement: No Patient Given Instructions on How to Stop Smoking: No Second Hand Smoke Exposure: No Use of substances other than those prescribed or required for medical reasons: No Currently Displaying Signs/Symptoms of Drug Intoxication Withdrawal: No Have you been hit, kicked, punched, or otherwise hurt by someone within the past year? If so, by whom?: No Do you feel safe in your current relationship?: Yes Is there a partner from a previous relationship who is making you feel unsafe now?: No Are you made to feel afraid or neglected: No Advance Directives: No Advance Directives Information Provided: No Do you have thoughts of harming others: None Do you have a plan to hurt others: No Plan Recently lost weight without trying: No How much weight loss: Not applicable Eating poorly because of decreased appetite: Yes Nutrition screen score: 1 Nutrition Risks: No Nutritional Risk Patient : No : No Poor oral hygiene: No service: No Current occupational status: unemployed Meds Allergies Allergy/AdvReac Type Severity Reaction Status Date / Time apple [Apple] Allergy Unknown APPLE PEEL Verified 05/11/23 14:38 - ITCHY THROAT nut - unspecified [nut] Allergy Unknown ITCHY Verified 05/11/23 14:38 THROAT pineapple [Pineapple] Allergy Unknown ITCHY Verified 05/11/23 14:38 THROAT acetaminophen [From Percocet] Allergy Anxiety Verified 05/11/23 14:38 amoxicillin Allergy Itching Verified 05/11/23 14:38 oxycodone [From Percocet] Allergy Anxiety Verified 05/11/23 14:38 lim AdvReac Intermediate Swelling Verified 05/11/23 14:38 DUST Allergy Unknown EYES, NOSE Uncoded 05/11/23 14:38 ITCHY - ASTHMA GRASS Allergy Unknown ITCHY EYES Uncoded 05/11/23 14:38 - THROAT pet dander AdvReac Mild Itchy Eyes Uncoded 05/11/23 14:38 Active Medications: Current Medications Acetaminophen (Acetaminophen 325 Mg Tablet) 650 mg PO Q6H PRN PRN Reason: Pain, Mild (Pain Scale 1-3) Last Admin: 05/12/23 07:08 Dose: 650 mg Albuterol Sulfate (Albuterol Sulfate 90 Mcg 8 Gm Inhaler) 1 puff INHALE RQ4H PRN PRN Reason: Shortness of Breath/Wheezing Amlodipine Besylate (Amlodipine Besylate 2.5 Mg Tablet) 2.5 mg PO BEDTIME [facility]; Protocol Last Admin: 05/11/23 22:16 Dose: 2.5 mg Aspirin (Aspirin Enteric Coated 81 Mg Tablet.) 81 mg PO BEDTIME [facility] Atorvastatin Calcium (Atorvastatin Calcium 80 Mg Tablet) 80 mg PO DAILY [facility] Last Admin: 05/12/23 11:56 Dose: 80 mg Dextrose (Dextrose 50 % 25 Gm/50 Ml Syringe) 25 gm IVPUSH Q15M PRN; Protocol PRN Reason: per Hypoglycemia Standing Ord. Docusate Sodium (Docusate Sodium 100 Mg Capsule) 100 mg PO DAILY PRN PRN Reason: Constipation Duloxetine HCl (Duloxetine Hcl 60 Mg Capsule.) 60 mg PO DAILY [facility] Last Admin: 05/12/23 11:56 Dose: 60 mg Ezetimibe (Ezetimibe 10 Mg Tablet) 10 mg PO BEDTIME [facility] Gabapentin (Gabapentin 600 Mg Tablet) 600 mg PO TID [facility] Glucose (Glucose Gel 15 Gm Gel..Gram.) 15 gm PO Q15M PRN; Protocol PRN Reason: per Hypoglycemia Standing Ord. Heparin Sodium (Porcine) (Heparin Sodium,Porcine 5,000 Unit/Ml Vial) 2,800 unit 40 unit/kg (2800 unit) IVPUSH PROTOCOL BOLUS PRN; Protocol PRN Reason: 40 unit/kg - Heparin Protocol Heparin Sodium (Porcine) (Heparin Sodium,Porcine 5,000 Unit/Ml Vial) 5,600 unit 80 unit/kg (5600 unit) IVPUSH PROTOCOL BOLUS PRN; Protocol PRN Reason: 80 unit/kg - Heparin Protocol Heparin Sodium/Sodium Chloride (Heparin Sodium,Porcine/1/2ns) 25,000 unit in 250 mls @ 0 mls/hr IVCONT .Q0M [facility]; Protocol Last Titration: 05/12/23 06:58 Dose: 8 units/kg/hr, 5.59 mls/hr Insulin Glargine (Insulin Glargine,Hum.Rec.Anlog 100 Unit/Ml 10 Ml Vial) 19 unit SUBCUT BEDTIME [facility] Last Admin: 05/11/23 22:15 Dose: 19 unit Insulin Human Lispro (Insulin Lispro 100 Unit/Ml 3 Ml Vial) 0 unit SUBCUT QIDACHS [facility]; Protocol Last Admin: 05/12/23 11:58 Dose: 2 unit Lisinopril (Lisinopril 40 Mg Tablet) 40 mg PO DAILY [facility]; Protocol Last Admin: 05/12/23 11:56 Dose: 40 mg Nitroglycerin (Nitroglycerin 0.4 Mg Tab.Subl) 0.4 mg SUBLINGUAL Q5MX3 PRN PRN Reason: Chest Pain Omeprazole (Omeprazole 40 Mg Capsule.Dr) 40 mg PO BEDTIME [facility] Ondansetron HCl (Ondansetron Hcl 4 Mg/2 Ml Vial) 4 mg IVPUSH Q8H PRN PRN Reason: Nausea and Vomiting Ranolazine (Ranolazine 500 Mg Tab.Er.12h) 1,000 mg PO BID [facility] Last Admin: 05/12/23 08:32 Dose: 1,000 mg Senna (Sennosides 8.6 Mg Tablet) 17.2 mg PO BEDTIME PRN PRN Reason: Constipation Sodium Chloride (0.9 % Sodium Chloride Flush 3 Ml Syringe) 3 ml IVFLUSH QSHIFT [facility] Last Admin: 05/12/23 08:30 Dose: Not Given Trazodone HCl (Trazodone Hcl 50 Mg Tablet) 50 mg PO BEDTIME PRN PRN Reason: Insomnia Last Admin: 05/11/23 23:36 Dose: 50 mg Home Medications Medication Instructions Recorded Confirmed Last Taken Type albuterol sulfate 90 mcg/actuation 2 puff inhalation Q4-6H PRN 08/12/22 05/12/23 3 Days Ago History aerosol inhaler (ProAir HFA) wheezing ~05/09/23 fluticasone propionate 50 1 spray intranasal DAILY PRN 08/12/22 05/12/23 08/11/22 09:00 History mcg/actuation nasal Allergy Symptoms spray,suspension aspirin 81 mg tablet,delayed 81 mg PO BEDTIME blood thinner 09/06/22 05/12/23 05/04/23 History release cilostazol 100 mg tablet 100 mg PO BEDTIME 09/06/22 05/12/23 Unknown History duloxetine 60 mg capsule,delayed 60 mg PO DAILY 09/06/22 05/12/23 Unknown History release ezetimibe 10 mg tablet 10 mg PO BEDTIME 09/06/22 05/12/23 Unknown History gabapentin 600 mg tablet 600 mg PO TID 09/06/22 05/12/23 Unknown History lisinopril 40 mg tablet 40 mg PO DAILY 09/06/22 05/12/23 Unknown History metformin 1,000 mg tablet 1,000 mg PO BIDWM 09/06/22 05/12/23 Unknown History nitroglycerin 0.4 mg sublingual 0.4 mg sublingual Q5M PRN Angina 09/06/22 05/12/23 Unknown History tablet omeprazole 20 mg capsule,delayed 20 mg PO BEDTIME PRN Heartburn 09/06/22 05/12/23 Unknown History release ranolazine 1,000 mg 1,000 mg PO BID 09/06/22 05/12/23 Unknown History tablet,extended release,12 hr rivaroxaban 2.5 mg tablet (Xarelto) 2.5 mg PO BEDTIME 09/06/22 05/12/23 Unknown History semaglutide 1 mg/dose (2 mg/1.5 2 mg subcut SAEED 09/06/22 05/12/23 05/05/23 History mL) subcutaneous pen injector (OzempEadBox) diphenhydramine HCl 25 mg tablet 25 mg PO BEDTIME PRN Allergic 03/27/23 05/12/23 Unknown History Symptoms fexofenadine 180 mg tablet 180 mg PO BEDTIME PRN Allergy 03/27/23 05/12/23 Unknown History Symptoms insulin aspart U-100 100 unit/mL See Protocol subcut USEASDIRECTD 03/27/23 05/12/23 Unknown History (3 mL) subcutaneous pen (Novolog FlexPen U-100 Insulin aspart) insulin degludec 100 unit/mL 3 unit subcut DAILY PRN BS > 190 03/27/23 05/12/23 Unknown History subcutaneous solution (Tresiba U-100 Insulin) insulin degludec 100 unit/mL 25 unit subcut BEDTIME 03/27/23 05/12/23 Unknown History subcutaneous solution (Tresiba U-100 Insulin) rosuvastatin 40 mg tablet 40 mg PO DAILY 03/28/23 05/12/23 Unknown History amlodipine 2.5 mg tablet (Norvasc) 2.5 mg PO BEDTIME Hypertension 05/12/23 05/12/23 05/10/23 23:00 History fluticasone propionate 110 2 puff inhalation BID PRN 05/12/23 05/12/23 Unknown History mcg/actuation HFA aerosol inhaler Shortness Of Breath Or Wheezing (Flovent HFA) metoprolol succinate 100 mg 100 mg PO DAILY 05/12/23 05/12/23 Unknown History tablet,extended release 24 hr trazodone 50 mg tablet 100 mg PO BEDTIME insomnia 05/12/23 05/12/23 Unknown History Physical Exam 2 Vital Signs: Vital Signs: Last Vital Signs Temp 97.6 F 05/12/23 11:27 Pulse 73 05/12/23 11:27 Resp 18 05/12/23 11:27 BP 148/69 H 05/12/23 11:27 Pulse Ox 96 05/12/23 11:27 O2 Del Method Room Air 05/12/23 11:27 BMI result Body Mass Index 29.1 GENERAL APPEARANCE: in no acute distress, pleasant. NECK: no carotid bruit, no jugular venous distention. SKIN: no suspicious lesions, warm and dry. HEART: no murmurs, regular rate and rhythm. LUNGS: clear to auscultation bilaterally. ABDOMEN: soft, nontender. EXTREMITIES: no edema. PERIPHERAL PULSES: equal. NEUROLOGIC: No gross deficits, AAO X 3 Objective Labs and Meds 05/12/23 03:44 05/12/23 03:44 Lab results: Laboratory Results - last 24 hr 05/11/23 05/11/23 05/11/23 15:03 17:06 18:05 WBC 9.7 RBC 4.77 Hgb 12.9 Hct 38.6 MCV 80.9 MCH 27.0 MCHC 33.4 RDW 14.4 Plt Count 246 MPV 10.6 Immature Gran % (Auto) 0.3 Neut % (Auto) 67.8 Lymph % (Auto) 21.5 [place] % (Auto) 6.8 Eos % (Auto) 3.2 Baso % (Auto) 0.4 Lymph # (Auto) 2.1 [place] # (Auto) 0.7 Eos # (Auto) 0.3 Baso # (Auto) 0.0 Abs Immat Gran (auto) 0.03 Absolute Neuts (auto) 6.6 Absolute Nucleated RBC 0.000 Nucleated RBC % (auto) 0.0 PT 12.6 INR 1.0 aPTT Heparin Protocol Sodium 141 Potassium 3.6 Chloride 105 Carbon Dioxide 26 Anion Gap 14 BUN 7 L Creatinine 1.08 Estim Creat Clear Calc 47.3 Estimated GFR 51 POC Glucose Random Glucose 236 H Calcium 9.7 D Magnesium 1.8 Troponin I High Sens 12.1 D 14.8 Urine Color Yellow Urine Appearance Clear Urine pH 5.5 Ur Specific [place] 1.015 Urine Protein 30 (1+) H Urine Glucose (UA) >=1000 H Urine Ketones Negative Urine Blood Negative Urine Nitrite Negative Ur Leukocyte Esterase Negative Urine RBC 0-2 Urine WBC 0-5 Ur Squamous Epith Cells 0-2 Urine Bacteria None Seen Hyaline Casts 0-2 Influenza Type A (PCR) NEGATIVE Influenza Type B (PCR) NEGATIVE RSV RNA Qual (PCR) NEGATIVE SARS-CoV-2 RNA (RT-PCR) NEGATIVE 05/11/23 05/11/23 05/12/23 20:53 22:04 03:44 WBC 8.8 RBC 4.42 Hgb 11.8 L Hct 35.7 L MCV 80.8 MCH 26.7 L MCHC 33.1 RDW 14.5 Plt Count 212 MPV 11.0 Immature Gran % (Auto) 0.1 Neut % (Auto) 53.2 Lymph % (Auto) 33.0 [place] % (Auto) 6.9 Eos % (Auto) 6.0 H Baso % (Auto) 0.8 Lymph # (Auto) 2.9 [place] # (Auto) 0.6 Eos # (Auto) 0.5 H Baso # (Auto) 0.1 Abs Immat Gran (auto) 0.01 Absolute Neuts (auto) 4.7 Absolute Nucleated RBC 0.000 Nucleated RBC % (auto) 0.0 PT 13.2 12.7 INR 1.1 1.0 aPTT Heparin Protocol 112.5 H* Sodium 142 Potassium 4.0 Chloride 109 H Carbon Dioxide 25 Anion Gap 12 BUN 7 L Creatinine 0.93 Estim Creat Clear Calc 56.0 Estimated GFR > 60 POC Glucose 159 H Random Glucose 132 H Calcium 9.0 D Magnesium Troponin I High Sens Urine Color Urine Appearance Urine pH Ur Specific [place] Urine Protein Urine Glucose (UA) Urine Ketones Urine Blood Urine Nitrite Ur Leukocyte Esterase Urine RBC Urine WBC Ur Squamous Epith Cells Urine Bacteria Hyaline Casts Influenza Type A (PCR) Influenza Type B (PCR) RSV RNA Qual (PCR) SARS-CoV-2 RNA (RT-PCR) 05/12/23 05/12/23 05/12/23 05:30 07:37 11:37 WBC RBC Hgb Hct MCV MCH MCHC RDW Plt Count MPV Immature Gran % (Auto) Neut % (Auto) Lymph % (Auto) [place] % (Auto) Eos % (Auto) Baso % (Auto) Lymph # (Auto) [place] # (Auto) Eos # (Auto) Baso # (Auto) Abs Immat Gran (auto) Absolute Neuts (auto) Absolute Nucleated RBC Nucleated RBC % (auto) PT INR aPTT Heparin Protocol 56.0 D Sodium Potassium Chloride Carbon Dioxide Anion Gap BUN Creatinine Estim Creat Clear Calc Estimated GFR POC Glucose 111 171 H Random Glucose Calcium Magnesium Troponin I High Sens Urine Color Urine Appearance Urine pH Ur Specific [place] Urine Protein Urine Glucose (UA) Urine Ketones Urine Blood Urine Nitrite Ur Leukocyte Esterase Urine RBC Urine WBC Ur Squamous Epith Cells Urine Bacteria Hyaline Casts Influenza Type A (PCR) Influenza Type B (PCR) RSV RNA Qual (PCR) SARS-CoV-2 RNA (RT-PCR) Imaging Radiologist's impression: Impressions Chest X-Ray 05/11/23 15:46 IMPRESSION: No acute cardiopulmonary process seen Assessment and Plan (1) Angina pectoris, unstable: Status: Acute Plan 62-year-old female who has history of coronary artery disease with previous bypass surgery in 2008 with DILLON to LAD, saphenous vein graft to OM and saphenous vein graft to PDA. Cardiac catheterization in 2022 showed that the vein graft to PDA is occluded. She had ostial PDA stenosis which was treated with 2.25 mm x 15 mm Xience NIKOLAS. She has been experiencing progressive angina over the last few months. Now she had chest discomfort while driving her car. She has unstable angina. Continue aspirin 81 mg daily load her with Plavix 300 mg and start Plavix 75 mg daily. She was on rivaroxaban for peripheral vascular disease. Rivaroxaban should be held for now. Agree with heparin drip for unstable angina. Limited echocardiogram tomorrow to assess for wall motion. We will transfer her tomorrow for potential cardiac catheterization on Saturday. Thank you for allowing me to participate in the care of your patient. Please feel free to contact me if you have any questions. Procedures Date of Service Date of Service: 05/12/23
[2023-05-12 13:26] LABS: PTT Heparin Drip 41.5 SEC (53-77.9)
--- NOTE | 2023-05-12 13:32 | HO.PM.IMPN ---
Subjective Subjective Date of Service: 05/12/23 Review of Systems Follow up unstable angina no chest pain, sob, nausea or vomiting Physical Exam Vital Signs: Vital Signs: Last Vital Signs Temp 97.6 F 05/12/23 11:27 Pulse 73 05/12/23 11:27 Resp 18 05/12/23 11:27 BP 148/69 H 05/12/23 11:27 Pulse Ox 96 05/12/23 11:27 O2 Del Method Room Air 05/12/23 11:27 BMI result Body Mass Index 29.1 Appearing in no acute distress lung sounds are clear to auscultation heart regular rate rhythm, clear S1, S2 positive bowel sounds, abdomen is soft, nontender neuro patient is alert x3, no focal deficits Objective Data Active Medications Acetaminophen (Acetaminophen 325 Mg Tablet) 650 mg PO Q6H PRN PRN Reason: Pain, Mild (Pain Scale 1-3) Last Admin: 05/12/23 07:08 Dose: 650 mg Documented By: COREY Albuterol Sulfate (Albuterol Sulfate 90 Mcg 8 Gm Inhaler) 1 puff INHALE RQ4H PRN PRN Reason: Shortness of Breath/Wheezing Amlodipine Besylate (Amlodipine Besylate 2.5 Mg Tablet) 2.5 mg PO BEDTIME [facility]; Protocol Last Admin: 05/11/23 22:16 Dose: 2.5 mg Documented By: MIKE Aspirin (Aspirin Enteric Coated 81 Mg Tablet.) 81 mg PO BEDTIME [facility] Atorvastatin Calcium (Atorvastatin Calcium 80 Mg Tablet) 80 mg PO DAILY [facility] Last Admin: 05/12/23 11:56 Dose: 80 mg Documented By: BISI Dextrose (Dextrose 50 % 25 Gm/50 Ml Syringe) 25 gm IVPUSH Q15M PRN; Protocol PRN Reason: per Hypoglycemia Standing Ord. Docusate Sodium (Docusate Sodium 100 Mg Capsule) 100 mg PO DAILY PRN PRN Reason: Constipation Duloxetine HCl (Duloxetine Hcl 60 Mg Capsule.) 60 mg PO DAILY [facility] Last Admin: 05/12/23 11:56 Dose: 60 mg Documented By: BISI Ezetimibe (Ezetimibe 10 Mg Tablet) 10 mg PO BEDTIME [facility] Gabapentin (Gabapentin 600 Mg Tablet) 600 mg PO TID [facility] Glucose (Glucose Gel 15 Gm Gel..Gram.) 15 gm PO Q15M PRN; Protocol PRN Reason: per Hypoglycemia Standing Ord. Heparin Sodium (Porcine) (Heparin Sodium,Porcine 5,000 Unit/Ml Vial) 2,800 unit 40 unit/kg (2800 unit) IVPUSH PROTOCOL BOLUS PRN; Protocol PRN Reason: 40 unit/kg - Heparin Protocol Heparin Sodium (Porcine) (Heparin Sodium,Porcine 5,000 Unit/Ml Vial) 5,600 unit 80 unit/kg (5600 unit) IVPUSH PROTOCOL BOLUS PRN; Protocol PRN Reason: 80 unit/kg - Heparin Protocol Heparin Sodium/Sodium Chloride (Heparin Sodium,Porcine/1/2ns) 25,000 unit in 250 mls @ 0 mls/hr IVCONT .Q0M [facility]; Protocol Last Titration: 05/12/23 06:58 Dose: 8 units/kg/hr, 5.59 mls/hr Documented By: COREY Co-signed By: LIVIER Insulin Glargine (Insulin Glargine,Hum.Rec.Anlog 100 Unit/Ml 10 Ml Vial) 19 unit SUBCUT BEDTIME [facility] Last Admin: 05/11/23 22:15 Dose: 19 unit Documented By: MIKE Insulin Human Lispro (Insulin Lispro 100 Unit/Ml 3 Ml Vial) 0 unit SUBCUT QIDACHS [facility]; Protocol Last Admin: 05/12/23 11:58 Dose: 2 unit Documented By: BISI Lisinopril (Lisinopril 40 Mg Tablet) 40 mg PO DAILY [facility]; Protocol Last Admin: 05/12/23 11:56 Dose: 40 mg Documented By: BISI Nitroglycerin (Nitroglycerin 0.4 Mg Tab.Subl) 0.4 mg SUBLINGUAL Q5MX3 PRN PRN Reason: Chest Pain Omeprazole (Omeprazole 40 Mg Capsule.Dr) 40 mg PO BEDTIME [facility] Ondansetron HCl (Ondansetron Hcl 4 Mg/2 Ml Vial) 4 mg IVPUSH Q8H PRN PRN Reason: Nausea and Vomiting Ranolazine (Ranolazine 500 Mg Tab.Er.12h) 1,000 mg PO BID [facility] Last Admin: 05/12/23 08:32 Dose: 1,000 mg Documented By: BISI Senna (Sennosides 8.6 Mg Tablet) 17.2 mg PO BEDTIME PRN PRN Reason: Constipation Sodium Chloride (0.9 % Sodium Chloride Flush 3 Ml Syringe) 3 ml IVFLUSH QSHIFT [facility] Last Admin: 05/12/23 08:30 Dose: Not Given Documented By: BISI Non-Admin Reason: IV Running Trazodone HCl (Trazodone Hcl 50 Mg Tablet) 50 mg PO BEDTIME PRN PRN Reason: Insomnia Last Admin: 05/11/23 23:36 Dose: 50 mg Documented By: COREY Labs 05/12/23 03:44 05/12/23 03:44 Labs: Laboratory Results - last 24 hr 05/11/23 05/11/23 05/11/23 15:03 17:06 20:53 MCV 80.9 MCH 27.0 MCHC 33.4 RDW 14.4 Plt Count 246 MPV 10.6 Immature Gran % (Auto) 0.3 Neut % (Auto) 67.8 Lymph % (Auto) 21.5 [place] % (Auto) 6.8 Eos % (Auto) 3.2 Baso % (Auto) 0.4 Lymph # (Auto) 2.1 [place] # (Auto) 0.7 Eos # (Auto) 0.3 Baso # (Auto) 0.0 Abs Immat Gran (auto) 0.03 Absolute Neuts (auto) 6.6 Absolute Nucleated RBC 0.000 Nucleated RBC % (auto) 0.0 PT 12.6 13.2 INR 1.0 1.1 aPTT Heparin Protocol Anion Gap 14 Estim Creat Clear Calc 47.3 Estimated GFR 51 POC Glucose Random Glucose 236 H Calcium 9.7 D Magnesium 1.8 Urine Color Yellow Urine Appearance Clear Urine pH 5.5 Ur Specific [place] 1.015 Urine Protein 30 (1+) H Urine Glucose (UA) >=1000 H Urine Ketones Negative Urine Blood Negative Urine Nitrite Negative Ur Leukocyte Esterase Negative Urine RBC 0-2 Urine WBC 0-5 Ur Squamous Epith Cells 0-2 Urine Bacteria None Seen Hyaline Casts 0-2 Influenza Type A (PCR) NEGATIVE Influenza Type B (PCR) NEGATIVE RSV RNA Qual (PCR) NEGATIVE SARS-CoV-2 RNA (RT-PCR) NEGATIVE 05/11/23 05/12/23 05/12/23 22:04 03:44 05:30 MCV 80.8 MCH 26.7 L MCHC 33.1 RDW 14.5 Plt Count 212 MPV 11.0 Immature Gran % (Auto) 0.1 Neut % (Auto) 53.2 Lymph % (Auto) 33.0 [place] % (Auto) 6.9 Eos % (Auto) 6.0 H Baso % (Auto) 0.8 Lymph # (Auto) 2.9 [place] # (Auto) 0.6 Eos # (Auto) 0.5 H Baso # (Auto) 0.1 Abs Immat Gran (auto) 0.01 Absolute Neuts (auto) 4.7 Absolute Nucleated RBC 0.000 Nucleated RBC % (auto) 0.0 PT 12.7 INR 1.0 aPTT Heparin Protocol 112.5 H* 56.0 D Anion Gap 12 Estim Creat Clear Calc 56.0 Estimated GFR > 60 POC Glucose 159 H Random Glucose 132 H Calcium 9.0 D Magnesium Urine Color Urine Appearance Urine pH Ur Specific [place] Urine Protein Urine Glucose (UA) Urine Ketones Urine Blood Urine Nitrite Ur Leukocyte Esterase Urine RBC Urine WBC Ur Squamous Epith Cells Urine Bacteria Hyaline Casts Influenza Type A (PCR) Influenza Type B (PCR) RSV RNA Qual (PCR) SARS-CoV-2 RNA (RT-PCR) 05/12/23 05/12/23 07:37 11:37 MCV MCH MCHC RDW Plt Count MPV Immature Gran % (Auto) Neut % (Auto) Lymph % (Auto) [place] % (Auto) Eos % (Auto) Baso % (Auto) Lymph # (Auto) [place] # (Auto) Eos # (Auto) Baso # (Auto) Abs Immat Gran (auto) Absolute Neuts (auto) Absolute Nucleated RBC Nucleated RBC % (auto) PT INR aPTT Heparin Protocol Anion Gap Estim Creat Clear Calc Estimated GFR POC Glucose 111 171 H Random Glucose Calcium Magnesium Urine Color Urine Appearance Urine pH Ur Specific [place] Urine Protein Urine Glucose (UA) Urine Ketones Urine Blood Urine Nitrite Ur Leukocyte Esterase Urine RBC Urine WBC Ur Squamous Epith Cells Urine Bacteria Hyaline Casts Influenza Type A (PCR) Influenza Type B (PCR) RSV RNA Qual (PCR) SARS-CoV-2 RNA (RT-PCR) Assessment and Plan (1) Stable angina: Status: Resolved (2) Dizziness: Status: Inactive (3) Angina pectoris, unstable: Status: Acute Plan 62-year-old female with history of hyperlipidemia, hypertension, insulin-dependent type 2 diabetes, PVD with claudication, CAD s/p CABG with occlusive vein graft to the RCA s/p PCI with stenting, and diabetic polyneuropathy as well as mood disorder admitted for unstable angina. Unstable angina background CAD, had been scheduled for diagnostic cardiac catheterization 05/16 currently asymptomatic Trops with delta change from 03/27 but normal at 12 -->14.8 EKG negative for any acute ischemic changes IV heparin per protocol given 324mg asa, continue 81mg daily Continue holding Xarelto continue nitrate therapy, statin, plavix load 300mg then 75mg daily echocardiogram pending cardiology consult> plan for tx to [facility] tomorrow cardiac diet monitor on telemetry [id number] type 2 diabetes diabetic diet dose adjusted basal insulin, Humalog on sliding scale hold metformin diabetic polyneuropathy continue gabapentin hypertension blood pressure reasonably controlled continue home antihypertensives hyperlipidemia continue statin PAD with claudication hold cilostazol, continue ASA Mood disorder continue home meds DVT prophylaxis- on heparin drip attending Full code Patient requires inpatient stay at least 2 midnights for management of unstable angina on heparin drip per protocol requiring expert consultation, close cardiac monitoring and will require probable transfer to tertiary care center for cardiac catheterization Quality Stroke Does the patient have a stroke diagnosis?: No VTE Prior VTE?: No VTE Risk Level:: Medical - moderate - high VTE Device Contraindication: Treatment Not Indicated VTE Drug Contraindication: N/A - Med Ordered
[2023-05-12] MEDS: Heparin Sodium,Porcine 5,000 UNIT/ML VIAL 2800 UNIT IVPUSH (14:15)
[2023-05-12] MEDS: Clopidogrel Bisulfate 300 MG TABLET PO (15:03)
--- NOTE | 2023-05-12 15:10 | PC.NURSE ---
Patient is A&OX4. Denies pain per pt at this time. GAXIOLA to command 5/5 sensation intact. pp bilat no edema noted. LSCTA denies SOB or chest pain, NSR on tele. BS+X4 abdomen soft non-tender denies nausea/vomiting. Tolerating diet. IV heparin infusing per order increased to 10 unit/kg/hr at 1400 with bolus given per order for PTT result. Next PTT due at 1999. Loading dose plavix given per order at 1500. Plan for transfer to [facility] tomorrow for Cardiac cath. Will continue to monitor and report changes
[2023-05-12 15:18] VITALS: BP 143/64; PULSE 74; RESP 18; TEMP 37; O2SAT 96
[2023-05-12 15:51] LABS: Glucose, Whole Blood 137 mg/dL (60-115)
[2023-05-12 19:54] VITALS: BP 127/62; PULSE 71; RESP 16; TEMP 36; O2SAT 98
[2023-05-12] MEDS: Omeprazole 40 MG CAPSULE.DR PO (20:00)
[2023-05-12] MEDS: Insulin Glargine,Hum.rec.anlog 100 UNIT/ML 10 ML VIAL 19 UNIT SUBCUT (20:00)
[2023-05-12] MEDS: amLODIPine Besylate 2.5 MG TABLET PO (20:00)
[2023-05-12] MEDS: 0.9 % Sodium Chloride Flush 3 ML SYRINGE IVFLUSH (20:01)
[2023-05-12] MEDS: traZODone HCL 50 MG TABLET PO (20:01)
[2023-05-12] MEDS: Ezetimibe 10 MG TABLET PO (20:01)
[2023-05-12] MEDS: Aspirin Enteric Coated 81 MG TABLET.DR PO (20:01)
[2023-05-12 20:47] LABS: Glucose, Whole Blood 178 mg/dL (60-115)
[2023-05-12] MEDS: Heparin Sodium,Porcine/1/2NS 25,000 UNIT/250 ML IV.SOLN 6.99 UNIT IVCONT (21:59)
[2023-05-13] VITALS: BP 118/59; PULSE 70; RESP 16; TEMP 36.1; O2SAT 93
[2023-05-13 03:26] VITALS: BP 128/60; PULSE 70; RESP 17; TEMP 36.1; O2SAT 97
[2023-05-13 03:43] LABS: PTT Heparin Drip 63.9 SEC (53-77.9)
[2023-05-13 03:46] LABS: Anion Gap 13 (12-20); Blood Urea Nitrogen 10 mg/dL (9-16); Calcium 9.1 mg/dL (8.4-10.2); Carbon Dioxide 27 mmol/L (22-29); Chloride 107 mmol/L (96-108); Creatinine Clr Calc Pharmacy 52.6; Estimated Glomerular Filt Rate 57; Glucose Random 146 mg/dL (60-115); Potassium 4.5 mmol/L (3.3-5.1); Sodium 142 mmol/L (135-145)
--- NOTE | 2023-05-13 07:00 | CA_ITS ---
Transthoracic Echocardiogram Patient (Last, First, Middle): Vee Parisi, Gender: Female Date of : 1960 Age: 62 Procedure Date: 05/13/2023 Procedure Type: Transthoracic Echocardiogram Location: [facility] [place] Height: 154.94 cm Weight: 69.85 kg BSA: 1.69 m2 Heart Rate: 74 bpm BP: 128 / 60 mmHg Er Rn: HARISH Referring MD: Irma TREJO Pneumatic Jack Operator: Dmitry Hernandez MD Symptoms: unstable angina Study Quality: Fair/w Contrast/Limited ECG Rhythm: Sinus Conclusions: - Hyperdynamic LV ejection fraction greater than 70% with elevated filling pressures and mild asymmetric septal hypertrophy Findings Procedure Information Contrast agent, definity, is being given per protocol without apparent complications. Left Ventricle Normal left ventricular cavity size. There is normal left ventricular wall thickness. The left ventricular systolic function is hyperdynamic. The visually estimated ejection fraction is >70%. There is no evidence of regional wall motion abnormalities. Spectral Doppler is indicative of an impaired relaxation filling pattern. Elevated filling pressures. E/E prime ratio is >15, consistent with elevated filling pressures. There is mild septal asymmetric hypertrophy. Measurements 2D Linear Measurements IVSd: 1.35 0.6-0.9/0.6-1.0 cm LVIDd: 3.51 3.9-5.3/4.2-5.9 cm LVIDd Index: 2.08 2.4-3.2/2.2-3.1 cm/m2 LVIDs: 1.55 2.0-3.6 cm LVPWd: 1.03 0.7-1.1 cm LV Mass: 167.54 67-162/88-224 g LV Mass Index: 99.13 43-95/49-115 g/m2 LVOT Diam: 1.90 3.0+(-)1.3 cm 2D Systolic Function EF 4C: 88.50 >55% EF 2C: 86.40 >55% EF BiP: 88.00 >55% Mitral Valve MV Pk E: 0.72 MV PK A: 0.89 MV Decel Time: 205.00 E/A: 0.80 E'Lateral: 6.20 E'Medial: 4.24 E/E' Med: 17.10 E/E' Lat: 11.70 PHT: 60.00 MVA PHT: 3.67 Decel Harlan: 3.52 LVOT LVOT Pk Ramon: 1.41 LVOT Mn Ramon: 0.97 LVOT VTI: 0.25 LVOT Pk Grad: 8.00 LVOT Mn Grad: 4.00 LVOT Diam: 1.90 LVOT Area: 2.84 Diastolic Function MV Pk E: 0.72 MV Pk A: 0.89 E/A: 0.80 E'Medial: 4.24 E/E' Med: 17.10 E' Laterial: 6.20 E/E' Lat: 11.70 Updated in Other Vendor System with Status of Final Dmitry Hernandez MD electronically signed on 05/13/2023 11:37:59 AM with status of Final
[2023-05-13 07:23] VITALS: BP 93/51; PULSE 78; RESP 18; TEMP 36.3; O2SAT 97
[2023-05-13 08:00] LABS: Glucose, Whole Blood 126 mg/dL (60-115)
--- NOTE | 2023-05-13 09:35 | P.DS_ITS ---
DS: Providers Provider Date of Service: 05/13/23 Date of admission: 05/11/23 21:14 Primary care physician: Maria R Sarmiento MD Consults: 05/11/23 21:19 Consult to Cardiology Routine Consulting Provider: [facility] Cardiovascular Services Reason for consultation: unstable angina Has provider been notified: Yes DS: Diagnosis Discharge Diagnosis (1) Stable angina: Status: Resolved (2) Dizziness: Status: Inactive (3) Angina pectoris, unstable: Status: Acute DS: Summary Hospital Course Hospital Course: HP as per admitting provider. 62-year-old female with history of hyperlipidemia, hypertension, insulin-dependent type 2 diabetes, PVD with claudication, CAD s/p CABG with occlusive vein graft to the RCA s/p PCI with stenting, and diabetic polyneuropathy as well as mood disorder presents to the ED earlier today following an episode of chest pain. She states around 14:30 [address] and developed sudden onset 10/10 retrosternal chest pressure like something was sitting on her chest with associated shortness of breath and radiation to the right arm. Denies any diaphoresis, nausea, vomiting, epigastric pain. She states she pulled her car over and took a dose of nitroglycerin without relief. She waited 5 minutes and took another dose of nitroglycerin with full resolution of symptoms. She states the whole episode lasted about 15 minutes. Has has had similar episodes of chest pain in the past. Was scheduled to have diagnostic cardiac cath on 05/16 after recent admission for chest pain and lighteadedness on 03/27. She has been holding her xarelto for this procedure. Currently asymptomatic. On arrival VSS. Hematology studies unremarkable. Renal function electrolyte levels normal. Initial troponin 12.1 (delta change from 03/27), repeat 14.8. UA unremarkable. Negative for influenza, COVID-19, RSV. Chest x- ray negative for any acute cardiopulmonary abnormality. EKG shows NSR, rate [address]/t wave abnormality, unchanged from prior ekgs. In the ED, received 324mg asa. ED provider discussed case with cardiology recommending admission for unstable angina on heparin drip per protocol. 62-year-old woman treated for unstable angina with history of coronary artery disease status post CABG with occlusive vein graft in the past. She was started on IV heparin drip. Troponins had remained negative EKG was negative for any acute ischemic changes. She was given full-dose aspirin and continued on maintenance aspirin daily, her Xarelto has been on hold. She was Plavix loaded with 300 mg and continued on 75 mg daily. She was seen evaluated by Cardiology with recommendation to transfer [facility] for cardiac catheter[facility]. Patient has remained chest pain-free did report some dizziness today fall other than that has been hemodynamically stable. Diabetes mellitus type 2 with diabetic polyneuropathy. Metformin has been on hold during hospitalization, has been treated with insulin sliding scale and Lantus. Hypertension. Blood pressure has been stable. Continue antihypertensives Hyperlipidemia. Continue high-dose statin Time Attestation Discharge coordination time: Greater than 30 minutes Quality: Safe Use of Opioids Does Pt have an Active Cancer Diagnosis on the Problem List?: No Quality: Stroke Does the patient have a stroke diagnosis?: No Physical Exam Vital Signs: Vital Signs: Last Vital Signs Temp 97.3 F 05/13/23 07:23 Pulse 78 05/13/23 07:23 Resp 18 05/13/23 07:23 BP 93/51 L 05/13/23 07:23 Pulse Ox 97 05/13/23 07:23 O2 Del Method Room Air 05/13/23 07:23 BMI result Body Mass Index 29.1 Appearing in no acute distress head is normocephalic atraumatic eyes pupils are PERRLA sclera is anicteric mouth throat mucous membranes are intact and moist neck is supple no lymphadenopathy, no JVD noted lung sounds are clear to auscultation heart regular rate rhythm, clear S1, S2 positive bowel sounds, abdomen is soft, nontender neuro patient is alert x3, no focal deficits DS: Data Data Completed and Pending Labs on day of discharge: Laboratory Results - last 24 hr 05/12/23 05/12/23 05/12/23 11:37 13:12 15:22 aPTT Heparin Protocol 41.5 L D Sodium Potassium Chloride Carbon Dioxide Anion Gap BUN Creatinine Estim Creat Clear Calc Estimated GFR POC Glucose 171 H 137 H Random Glucose Calcium 05/12/23 05/12/23 05/13/23 19:55 20:25 03:28 aPTT Heparin Protocol 58.0 D 63.9 Sodium 142 Potassium 4.5 Chloride 107 Carbon Dioxide 27 Anion Gap 13 BUN 10 Creatinine 0.99 Estim Creat Clear Calc 52.6 Estimated GFR 57 POC Glucose 178 H Random Glucose 146 H Calcium 9.1 05/13/23 07:36 aPTT Heparin Protocol Sodium Potassium Chloride Carbon Dioxide Anion Gap BUN Creatinine Estim Creat Clear Calc Estimated GFR POC Glucose 126 H Random Glucose Calcium Discharge Plan Discharge Anticipated Discharge Date/Time: 05/13/23 09:28 Patient Disposition: Xfer Acute Care Hospital Discharge Diagnosis: unstable angina Referrals: Maria R Sarmiento MD [Primary Care Provider] - 1 Week Discharge Medications: New clopidogrel 75 mg Tablet 75 mg PO DAILY Qty: 30 0RF heparin(porcine) in 0.45% NaCl 25,000 unit/250 mL Parenteral Solution 25,000 unit continuous IV infusion .Q0M Qty: 6000 0RF Continued albuterol sulfate [ProAir HFA] 90 mcg/actuation HFA aerosol inhaler 2 puff INHALATION Q4-6H PRN (Reason: wheezing) fluticasone propionate 50 mcg/actuation spray,suspension 1 spray intranasal DAILY PRN (Reason: Allergy Symptoms) aspirin 81 mg tablet,delayed release (DR/EC) 81 mg PO BEDTIME cilostazol 100 mg tablet 100 mg PO BEDTIME duloxetine 60 mg capsule,delayed release(DR/EC) 60 mg PO DAILY ezetimibe 10 mg tablet 10 mg PO BEDTIME gabapentin 600 mg tablet 600 mg PO TID lisinopril 40 mg tablet 40 mg PO DAILY metformin 1,000 mg tablet 1,000 mg PO BIDWM nitroglycerin 0.4 mg tablet, sublingual 0.4 mg sublingual Q5M PRN (Reason: Angina) omeprazole 20 mg capsule,delayed release(DR/EC) 20 mg PO BEDTIME PRN (Reason: Heartburn) ranolazine 1,000 mg tablet extended release 12 hr 1,000 mg PO BID Xarelto 2.5 mg tablet 2.5 mg PO BEDTIME amlodipine [Norvasc] 2.5 mg tablet 2.5 mg PO BEDTIME metoprolol succinate 100 mg tablet extended release 24 hr 100 mg PO DAILY fluticasone propionate [Flovent HFA] 110 mcg/actuation HFA aerosol inhaler 2 puff INHALATION BID PRN (Reason: Shortness Of Breath Or Wheezing) trazodone 50 mg tablet 100 mg PO BEDTIME insulin degludec [Tresiba U-100 Insulin] 100 unit/mL solution 25 unit subcut BEDTIME fexofenadine 180 mg Tablet 180 mg PO BEDTIME PRN (Reason: Allergy Symptoms) diphenhydramine HCl 25 mg Tablet 25 mg PO BEDTIME PRN (Reason: Allergic Symptoms) insulin aspart U-100 [Novolog FlexPen U-100 Insulin] 100 unit/mL (3 mL) Insulin Pen See Protocol SUBCUT USEASDIRECTD Protocol: Insulin Correction Scale Less than or equal to 110 ---- Give (units): 0 111 to 150 Give (units): 0 151 to 200 Give (units): 2 201 to 250 Give (units): 4 251 to 300 Give (units): 6 301 to 350 Give (units): 8 Greater than 350 Give (units): 10 Call MD if Blood Glucose > : 350 insulin degludec [Tresiba U-100 Insulin] 100 unit/mL solution 3 unit subcut DAILY PRN (Reason: BS > 190) rosuvastatin 40 mg tablet 40 mg PO DAILY Ozempic 1 mg/dose (2 mg/1.5 mL) pen injector 2 mg subcut SAEED Discharge Orders: Discharge Order (Routine); Ordered 05/13/23 Ordered By: Rebeca Lau Diet: Advance to usual diet Activity on Discharge: As tolerated Stand Alone Forms: Patient Portal Discharge page Care Plan Goals: IV heparin drip started 05/12/2023 On aspirin, statin and Plavix Health Concerns: Unstable angina Plan of Treatment: Transfer to tertiary care facility for cardiac catheterization Assessment: See discharge summary
--- NOTE | 2023-05-13 09:53 | MHC.CM.PN ---
IMM 05/13/23 Pt is being transferred to [facility].
[2023-05-13] MEDS: Atorvastatin Calcium 80 MG TABLET PO (10:15)
[2023-05-13] MEDS: DULoxetine HCl 60 MG CAPSULE.DR PO (10:16)
[2023-05-13] MEDS: Gabapentin 600 MG TABLET PO ×2 (10:16→16:22)
[2023-05-13] MEDS: Clopidogrel Bisulfate 75 MG TABLET PO (10:16)
[2023-05-13] MEDS: Ranolazine 500 MG TAB.ER.12H 1000 MG PO (10:16)
[2023-05-13] MEDS: 0.9 % Sodium Chloride Flush 3 ML SYRINGE IVFLUSH ×2 (10:17→16:24)
--- NOTE | 2023-05-13 10:55 | PM.PNCARD ---
Subjective Subjective Date of Service: 05/13/23 Principal diagnosis: Unstable angina Interval history: Patient currently not having any chest discomfort at rest. Currently on IV heparin. Troponins have been negative. Review of Systems Review of Systems Yes all other systems are reviewed and are negative Physical Exam Vital Signs: Last Vital Signs Temp 97.3 F 05/13/23 07:23 Pulse 78 05/13/23 07:23 Resp 18 05/13/23 07:23 BP 93/51 L 05/13/23 07:23 Pulse Ox 97 05/13/23 07:23 O2 Del Method Room Air 05/13/23 07:23 BMI result Body Mass Index 29.1 GENERAL APPEARANCE: in no acute distress, pleasant. NECK: no carotid bruit, no jugular venous distention. SKIN: no suspicious lesions, warm and dry. HEART: no murmurs, regular rate and rhythm. LUNGS: clear to auscultation bilaterally. ABDOMEN: soft, nontender. EXTREMITIES: no edema. PERIPHERAL PULSES: equal. NEUROLOGIC: No gross deficits, AAO X 3 Objective Labs and Meds 05/12/23 03:44 05/13/23 03:28 Lab results: Laboratory Results - last 24 hr 05/12/23 05/12/23 05/12/23 11:37 13:12 15:22 aPTT Heparin Protocol 41.5 L D Sodium Potassium Chloride Carbon Dioxide Anion Gap BUN Creatinine Estim Creat Clear Calc Estimated GFR POC Glucose 171 H 137 H Random Glucose Calcium 05/12/23 05/12/23 05/13/23 19:55 20:25 03:28 aPTT Heparin Protocol 58.0 D 63.9 Sodium 142 Potassium 4.5 Chloride 107 Carbon Dioxide 27 Anion Gap 13 BUN 10 Creatinine 0.99 Estim Creat Clear Calc 52.6 Estimated GFR 57 POC Glucose 178 H Random Glucose 146 H Calcium 9.1 05/13/23 07:36 aPTT Heparin Protocol Sodium Potassium Chloride Carbon Dioxide Anion Gap BUN Creatinine Estim Creat Clear Calc Estimated GFR POC Glucose 126 H Random Glucose Calcium Progress Note: A&P Assessment and plan (1) Angina pectoris, unstable: Status: Acute Assessment and Plan: Unstable angina in patient with multiple coronary revascularization prior coronary bypass grafting. Plan for cardiac catheterization tomorrow. Continue IV heparin. We discussed the risks, benefits, alternatives cardiac catheterization. She understands and agrees. Continue all other medical therapy including high-intensity statin therapy and dual antiplatelet therapy. Blood pressure is currently well optimized. Arrangements have been made for transfer to [facility]. Will follow up as outpatient Time Spent With Patient Time: Total time managing care of this patient today ____ minutes. Progress Note: Quality Stroke Does the patient have a stroke diagnosis?: No Procedures Date of Service Date of Service: 05/13/23
[2023-05-13 11:19] VITALS: BP 178/79; PULSE 77; RESP 18; TEMP 36.8; O2SAT 99
[2023-05-13 11:50] LABS: Glucose, Whole Blood 166 mg/dL (60-115)
[2023-05-13] MEDS: Insulin Lispro 100 UNIT/ML 3 ML VIAL SUBCUT (12:11)
[2023-05-13 15:51] VITALS: BP 125/58; PULSE 69; RESP 16; TEMP 36.4; O2SAT 98
[2023-05-13 16:24] LABS: Glucose, Whole Blood 105 mg/dL (60-115)
== END 2023-05-13 17:27 | disposition short-term general hospital (02) | DRG 303 ==
LOC: HO.ED 20:34 → HO.EDOVER 21:25 → HO.IMC 21:46
PROVIDERS: Internal Medicine; Internal Medicine Cardiovascular Disease; Physician Assistant Medical; Admitting Provider Physician Assistant; Emergency Provider Emergency Medicine Emergency Medical Services; PCP Internal Medicine; Visit Provider Nurse Practitioner Acute Care
DX: I25.110 Atherosclerotic heart disease of native coronary artery with unstable angina pectoris (principal); E11.51 Type 2 diabetes mellitus with diabetic peripheral angiopathy without gangrene; I70.219 Atherosclerosis of native arteries of extremities with intermittent claudication, unspecified extremity; E11.42 Type 2 diabetes mellitus with diabetic polyneuropathy; I10 Essential (primary) hypertension; E78.5 Hyperlipidemia, unspecified; F39 Unspecified mood [affective] disorder; Z20.822 Contact with and (suspected) exposure to COVID-19; Z95.1 Presence of aortocoronary bypass graft; Z87.891 Personal history of nicotine dependence; Z79.4 Long term (current) use of insulin; Z79.51 Long term (current) use of inhaled steroids; Z79.01 Long term (current) use of anticoagulants; Z79.82 Long term (current) use of aspirin; Z79.84 Long term (current) use of oral hypoglycemic drugs; Z79.899 Other long term (current) drug therapy
CPT/HCPCS: 0241U; 36415; 71046; 80048; 81001; 82947; 83735; 84484; 85025; 85027; 85610; 85730; 93005; 93308; 99285; J1644

== ENCOUNTER 2023-05-11 21:14 | Outpatient (BNV) | payer MEDICARE, MEDICAID, SELFPAY | END 2023-05-13 07:00 | PROVIDERS: Admitting Provider Physician Assistant; Emergency Provider Emergency Medicine Emergency Medical Services; PCP Internal Medicine; Visit Provider Internal Medicine Cardiovascular Disease | DX: R94.31 Abnormal electrocardiogram [ECG] [EKG] (principal); I20.89 Other forms of angina pectoris | CPT/HCPCS: 93308 ==

== ENCOUNTER → 2023-05-11 21:14 | Outpatient (BNV) | payer MEDICARE, MEDICAID, SELFPAY | PROVIDERS: Admitting Provider Physician Assistant; Emergency Provider Emergency Medicine Emergency Medical Services; PCP Internal Medicine; Visit Provider Internal Medicine Cardiovascular Disease | DX: I20.0 Unstable angina (principal) | CPT/HCPCS: 99223; 99233 ==

== ENCOUNTER → 2023-05-11 21:14 | Outpatient (BNV) | payer MEDICARE, MEDICAID, SELFPAY | PROVIDERS: Admitting Provider Physician Assistant; Emergency Provider Emergency Medicine Emergency Medical Services; PCP Internal Medicine; Visit Provider Nurse Practitioner Acute Care | DX: I20.0 Unstable angina (principal); R42 Dizziness and giddiness; E11.42 Type 2 diabetes mellitus with diabetic polyneuropathy | CPT/HCPCS: 99223; 99232; 99239 ==

== ENCOUNTER → 2023-05-14 23:59 | Outpatient (BNV) | payer MEDICARE, MEDICAID, SELFPAY | PROVIDERS: PCP Internal Medicine; Visit Provider Internal Medicine Cardiovascular Disease | DX: I20.0 Unstable angina (principal) | CPT/HCPCS: 92937; 93459; 99152 ==

== ENCOUNTER 2023-05-28 14:03 | Outpatient (AMB) | payer MEDICARE, MEDICAID, SELFPAY ==
--- NOTE | 2023-05-28 14:06 | HO.NEPHOV ---
HPI HPI Comments History of Present Illness Details Madeleine is a pleasant middle-aged woman with multiple medical issues including coronary disease, longstanding hypertension, and longstanding diabetes mellitus for more than 30 years. She has had a history of difficult to control hypertension and there was a question of orthostatic hypotension during recent hospitalization. Two weeks ago she was admitted to [facility] and underwent coronary angiogram and stent placement. 24-48 hours post angiogram serum creatinine was still 0.99. During the hospitalization amlodipine 2.5 mg was discontinued. She is still on lisinopril 40 mg a day. She is supposed to be on metoprolol succinate 100 mg once a day however she has not taken for last 2 weeks because she ran out of it. As of today she is only on lisinopril 40 mg once a day. She has a history of diabetic neuropathy. She is on Neurontin 600 mg 3 times a day. She also has significant peripheral as disease and follows with Dr. Chan. She has undergone stent placements as well. [facility] Medical History Dizziness Orthostatic hypotension Stenosis of left vertebral artery CVA (cerebral vascular accident) Peripheral vascular disease Neuropathy Coronary artery disease Brain TIA Hypertension Diabetes Surgical History History of angioplasty of peripheral vessel Status post aorto-coronary artery bypass graft Family History Father Coronary artery disease involving coronary bypass graft Mother No problems noted. Social History Household Members: Family Household Members Other:: brother and nephew Housing: Apartment Do you presently have visiting nurse or other home services: No Alcohol intake: never Patient Tobacco Use Status: Former Tobacco user Years Smoked: Remote smoking, quit in her 30s Second Hand Smoke Exposure: No service: No Current occupational status: unemployed Vital Signs 05/28/23 14:09 Height 5 ft 1 in Weight 147 lb BMI 27.8 BP 140/58 H Blood Pressure Location Lt brachial Position Sitting Pulse 95 Pulse Source Pulse Oximeter Pulse Oximetry (%) 96 Oxygen Delivery Method Room Air Physical Exam Vital Signs: Last Vital Signs Pulse 95 05/28/23 14:09 BP 140/58 H 05/28/23 14:09 Pulse Ox 96 05/28/23 14:09 Oxygen Delivery Method Room Air 05/28/23 14:09 BMI result Body Mass Index 27.8 Blood pressure was symmetrical in both upper extremities. Orthostatic changes. Supine blood pressure was 120/60 and standing blood pressure was 120/50 mmHg and she was asymptomatic. Const General: comfortable Nutritional Appearance: well nourished Orientation/consciousness: patient oriented x3 HEENT Head: No normal to inspection Mouth: moist mucous membranes Neck Neck: Yes supple and Yes no JVD Resp Auscultation: clear to auscultation bilaterally, no rales and rub present Cardio Jugular venous distension: no JVD Palpation: no palpable S3 and no palpable S4 Heart sounds: no rubs GI Palpation (GI): Soft to palpation and nontender Percussion: No Fluid wave present General: Yes no CVA tenderness Back/Spine/Pelvis Back: no CVA tenderness Skin General skin exam: no rashes or lesions noted Neuro General: patient oriented x3 Extrem General: Yes no pedal edema and No clubbing Assessment & Plan Assessment & Plan (1) Hypertension: Code(s): I10 - Essential (primary) hypertension Plan: Middle-aged woman with longstanding history of hypertension and diabetes mellitus with question of orthostatic hypotension. At present blood pressure is well controlled. She is on lisinopril 40 mg a day and today there was no significant orthostatic changes. She probably has underlying autonomic neuropathy secondary to long-standing diabetes which could be contributing to the orthostatic blood pressure changes. However while she was in the hospital she had orthostatic blood pressure change which improved after IV hydration and this makes me wonder if she in fact had volume depletion as a potential cause for the orthostatic blood pressure change. The other possibility would include use of Neurontin which is known to cause orthostatic blood pressure changes. I discussed the possibility of lowering the dose of Neurontin but she wants to continue with current dose due to her leg pains. In any case she should continue with orthostatic precautions including tight stockings and keeping her head elevated 30 degrees. I will decrease the lisinopril down to 20 mg and I have asked her to take it in the evening rather than in the morning. Given her cardiac history I agree with restarting the metoprolol at the same dose of 100 mg a day. There is no absolute indication for a 24 hour ambulatory blood pressure monitoring at this time. I have encouraged her to keep monitoring her blood pressure at home and to bring meter readings. The renal function is stable at this time. Orders: Orders Electrolytes 1 Month E11.9 - Type 2 diabetes mellitus without complications, I10 - Essential (primary) hypertension Blood Urea Nitrogen 1 Month E11.9 - Type 2 diabetes mellitus without complications, I10 - Essential (primary) hypertension Creatinine 1 Month E11.9 - Type 2 diabetes mellitus without complications, I10 - Essential (primary) hypertension Calcium 1 Month E11.9 - Type 2 diabetes mellitus without complications, I10 - Essential (primary) hypertension Creatinine Urine 1 Month E11.9 - Type 2 diabetes mellitus without complications, I10 - Essential (primary) hypertension Complete Blood Count no Diff 1 Month E11.9 - Type 2 diabetes mellitus without complications, I10 - Essential (primary) hypertension Total Protein Urine Random 1 Month E11.9 - Type 2 diabetes mellitus without complications, I10 - Essential (primary) hypertension UA and rflx microscopic 1 Month E11.9 - Type 2 diabetes mellitus without complications, I10 - Essential (primary) hypertension Medications: New metoprolol succinate ER 100 mg PO DAILY 30 tabs 3RF lisinopril 20 mg PO .evening 30 tabs 3RF Coding Level of Care Code New Pt Level 4 (78691) Diagnoses Hypertension I10 Results Reviewed Nephrology Results: Hgb 11.8 g/dl (12.0-16.0) L 05/12/23 WBC 8.8 X10*3/uL (4.8-10.8) 05/12/23 Plt Count 212 X10*3/uL (160-400) 05/12/23 Sodium 142 mmol/L (135-145) 05/13/23 Potassium 4.5 mmol/L (3.3-5.1) 05/13/23 Chloride 107 mmol/L (96-108) 05/13/23 Carbon Dioxide 27 mmol/L (22-29) 05/13/23 BUN 10 mg/dL (9-16) 05/13/23 Creatinine 0.99 mg/dL (0.5-1.4) 05/13/23 Calcium 9.1 mg/dL (8.4-10.2) 05/13/23 Urine Protein 30 (1+) mg/dL (Neg-Trace) H 05/11/23
[2023-05-28 14:09] VITALS: BP 140/58; PULSE 95; O2SAT 96; BMI 27.8
== END 2023-05-28 14:56 | disposition home or self-care (01) ==
PROVIDERS: PCP Internal Medicine; Visit Provider Internal Medicine Hypertension Specialist
DX: I10 Essential (primary) hypertension (principal)
CPT/HCPCS: 99204

== ENCOUNTER → 2023-05-28 14:03 | Outpatient (BNVA) | payer MEDICARE, MEDICAID, SELFPAY | PROVIDERS: PCP Internal Medicine; Visit Provider Internal Medicine Hypertension Specialist | DX: I10 Essential (primary) hypertension (principal) | CPT/HCPCS: 99202 ==

== ENCOUNTER 2023-08-06 14:19 | Outpatient (REF) | payer MEDICARE, MEDICAID, SELFPAY ==
[2023-08-06 14:39] LABS: MANUAL DIFF FLAG NO
[2023-08-06 15:11] LABS: Basophils Absolute Auto 0.1 X10*3/uL (0.0-0.2); Basophils Percent Auto 0.6 % (0-2); Eosinophils Absolute Auto 0.3 X10*3/uL (0.0-0.4); Eosinophils Percent Auto 2.5 % (0-4); Hematocrit 39.9 % (37.0-47.0); Imm Gran Abs Auto 0.04 X10*3/uL (0.00-0.03); Imm Gran Pct Auto 0.3 % (0.0-0.4); Lymphocytes Percent Auto 16.2 % (20-40); Mean Corpuscular HGB Conc 32.6 g/dl (31.0-35.0); Mean Corpuscular Hemoglobin 26.9 pg (27.0-33.0); Mean Corpuscular Volume 82.6 fL (80.0-98.0); Mean Platelet Volume 10.9 fL (9.4-12.3); Monocytes Absolute Auto 0.7 X10*3/uL (0.1-1.2); Monocytes Percent Auto 5.4 % (2-11); Neutrophils Absolute Auto 9.1 x10*3/uL (2.0-8.3); Platelet Count 339 X10*3/uL (160-400); Red Blood Count 4.83 X10*6/uL (4.20-5.50); Red Cell Distribution Width 14.7 % (11.0-16.0); White Blood Count 12.2 X10*3/uL (4.8-10.8)
[2023-08-06 15:23] LABS: Estimated Average Glucose 151 mg/dL; Hemoglobin A1c % 6.9 % (<6.0)
[2023-08-06 15:44] LABS: Alanine Aminotransferase 38 U/L (0-31); Albumin Level 4.1 g/dL (3.5-5.0); Alkaline Phosphatase 66 U/L (39-117); Anion Gap 15 (12-20); Aspartate Amino Transferase 16 U/L (5-31); Bilirubin Total 0.5 mg/dL (0.0-1.0); Blood Urea Nitrogen 12 mg/dL (9-16); Calcium 9.5 mg/dL (8.4-10.2); Carbon Dioxide 27 mmol/L (22-29); Chloride 101 mmol/L (96-108); Cholesterol 168 mg/dL (<200); Estimated Glomerular Filt Rate 42; Glucose Random 184 mg/dL (60-115); HDL Cholesterol 55 mg/dL (>40); LDL Cholesterol Calculated 85 mg/dL (<100); Potassium 4.6 mmol/L (3.3-5.1); Sodium 138 mmol/L (135-145); Total Protein 7.7 g/dL (6.5-8.0); Triglycerides 140 mg/dL (<150)
[2023-08-06 15:45] LABS: Anion Gap 16 (12-20); Blood Urea Nitrogen 12 mg/dL (9-16); Calcium 9.5 mg/dL (8.4-10.2); Carbon Dioxide 27 mmol/L (22-29); Chloride 101 mmol/L (96-108); Estimated Glomerular Filt Rate 42; Potassium 4.5 mmol/L (3.3-5.1); Sodium 139 mmol/L (135-145)
[2023-08-06 16:00] LABS: Appearance Urine Clear; Color Urine Yellow; Glucose Urine UA Negative (Negative); Leukocyte Esterase Urine Negative (Negative); Nitrite Urine Negative (Negative); Specific Gravity - Urine 1.015 (1.005-1.025); UMIC TRIGGER UA YES; Urine Blood Negative (Negative); Urine Ketones Negative (Negative); Urine Protein 30 (1+) mg/dL (Neg-Trace)
[2023-08-06 16:03] LABS: Bacteria Urine None Seen (None Seen); Hyaline Casts Urine 0-2 /LPF (0-2); RBC Urine 0-2 /HPF (0-2); WBC Urine 0-5 /HPF (0-5)
[2023-08-06 16:13] LABS: Vitamin B12 628 pg/mL (200-900)
[2023-08-06 16:23] LABS: Creatinine Urine 125.15 mg/dL; Microalbum/Creatinine Ratio Ur 106.2 ug/mg cr (<30)
[2023-08-06 16:24] LABS: Creatinine Urine 124.59 mg/dL; Total Protein Urine Random 25 mg/dL (<12)
== END 2023-08-06 14:20 | disposition home or self-care (01) ==
LOC: HO.LAB 14:19
PROVIDERS: Internal Medicine Hypertension Specialist; PCP Internal Medicine; Visit Provider Internal Medicine
DX: E11.65 Type 2 diabetes mellitus with hyperglycemia (principal); E11.22 Type 2 diabetes mellitus with diabetic chronic kidney disease; I12.9 Hypertensive chronic kidney disease with stage 1 through stage 4 chronic kidney disease, or unspecified chronic kidney disease; E78.00 Pure hypercholesterolemia, unspecified; F32.9 Major depressive disorder, single episode, unspecified; N18.9 Chronic kidney disease, unspecified; R55 Syncope and collapse
CPT/HCPCS: 36415; 80051; 80053; 80061; 81001; 81003; 82043; 82310; 82565; 82570; 82607; 83036; 84156; 84520; 85025

== ENCOUNTER 2023-09-15 21:52 | Emergency (ER) | payer MEDICARE, MEDICAID, SELFPAY ==
--- NOTE | 2023-09-15 | ECG_ITS ---
Test Reason : CHEST PAIN Blood Pressure : / mmHG Vent. Rate : 089 BPM Atrial Rate : 089 BPM P-R Int : 142 ms QRS Dur : 078 ms QT Int : 370 ms P-R-T Axes : 039 -61 046 degrees QTc Int : 450 ms Normal sinus rhythm Left axis deviation Inferior infarct (cited on or before 31-JUL-2022) Anteroseptal infarct (cited on or before 31-JUL-2022) Abnormal ECG When compared with ECG of 11-MAY-2023 14:44, No significant change was found Referred By: Generic ED Physician Electronically Signed By:RAMY KRISHNAN MD
--- NOTE | ~2023-09-15 | XR_ITS ---
EXAMINATION: XR HIP, RIGHT CLINICAL INFORMATION: Pain COMPARISON: None available. TECHNIQUE: Two views of the right hip. FINDINGS: Alignment across the hips is anatomic with mild joint space narrowing as well as acetabular spurring. No acute fracture is seen. Soft tissue calcification is present adjacent to the right greater trochanter, suspicious for calcific tendinitis. Sacroiliac joints and pubic symphysis appear intact. Vascular calcifications are present. Bilateral femoral stents are noted. XR/XR hip RT min 2V IMPRESSION: No acute findings identified. Calcification adjacent to the right greater trochanter, suspicious for calcific tendinitis.
--- NOTE | ~2023-09-15 | XR_ITS ---
EXAMINATION: XR CHEST CLINICAL INFORMATION: Pain COMPARISON: 05/11/2023 TECHNIQUE: Frontal view of the chest was obtained. FINDINGS: The lungs are clear with no focal consolidation. No evidence of pneumothorax, pulmonary edema, or pleural effusions. The cardiomediastinal silhouette is unremarkable. No acute osseous findings. Sternal wires are noted. XR/XR chest 1V IMPRESSION: No acute cardiopulmonary findings.
[2023-09-15 21:57] VITALS: BP 189/60; PULSE 88; RESP 14; O2SAT 100; BMI 28.5
--- NOTE | 2023-09-15 22:19 | ED_ITS ---
HPI - Chest Pain General Chief Complaint: Chest Pain Stated Complaint: chest pain Time Seen by Provider: 09/15/23 22:09 Source: patient and old records reviewed Mode of arrival: ambulatory Limitations: no limitations History of Present Illness HPI narrative: 62 yo female with PMH of HLD, DM, HTN, unstable angina, CAD s/p CABG and PCI last cath 05/13/23 showed LMCA 70% distal stenosis, LAD mid occluded with patent DILLON to LAD, LCx 70% prox stenosis diffuse ds distally, RCA patent mid RCA stent, occluded ostial PDA stent, chronic total occlusion in R PDA - graft lesions aorta to left 1st ob marginal 80% stenosis - severe multivessel disease had NIKOLAS at that time to vein graft to OM. She presents to our ED tonight with c/o being at rest tonight and developing chest tightness with mild dyspnea around 6 to 7 no response to 2 SL nitro though it has improved already. This does feel different from her prior chest pain before previous cath. She has no radiation to the arms which is different. She is feeling better now. She is under a lot of pressure and stress due to move soon to [place] hasn't been taking care of herself that well vomited this AM before any chest pain and has been stressed out. MD complaint: chest heaviness Pertinent past history: coronary artery disease, prior AR, MANAGEMENT LIAISON and CABG Onset (ago): hour(s) (6pm) Timing of current episode: other (improved) Prior episodes: Yes Onset: during rest Pain location: substernal Pain radiation: none Severity: moderate Quality: tightness Relieving factors: nothing Exacerbating factors: nothing Context: other (life stress) Associated symptoms: dyspnea Treatment prior to arrival: nitroglycerin Related Data Home Medications Medication Instructions Recorded Confirmed albuterol sulfate 90 mcg/actuation 2 puff inhalation Q4-6H PRN 08/12/22 05/12/23 aerosol inhaler (ProAir HFA) wheezing fluticasone propionate 50 1 spray intranasal DAILY PRN 08/12/22 05/12/23 mcg/actuation nasal Allergy Symptoms spray,suspension aspirin 81 mg tablet,delayed 81 mg PO BEDTIME blood thinner 09/06/22 05/12/23 release cilostazol 100 mg tablet 100 mg PO BEDTIME 09/06/22 05/12/23 duloxetine 60 mg capsule,delayed 60 mg PO DAILY 09/06/22 05/12/23 release ezetimibe 10 mg tablet 10 mg PO BEDTIME 09/06/22 05/12/23 gabapentin 600 mg tablet 600 mg PO TID 09/06/22 05/12/23 metformin 1,000 mg tablet 1,000 mg PO BIDWM 09/06/22 05/12/23 omeprazole 20 mg capsule,delayed 20 mg PO BEDTIME PRN Heartburn 09/06/22 05/12/23 release ranolazine 1,000 mg 1,000 mg PO BID 09/06/22 05/12/23 tablet,extended release,12 hr semaglutide 1 mg/dose (2 mg/1.5 2 mg subcut SAEED 09/06/22 05/12/23 mL) subcutaneous pen injector (OzempUnited Prototype) diphenhydramine HCl 25 mg tablet 25 mg PO BEDTIME PRN Allergic 03/27/23 05/12/23 Symptoms fexofenadine 180 mg tablet 180 mg PO BEDTIME PRN Allergy 03/27/23 05/12/23 Symptoms insulin aspart U-100 100 unit/mL See Protocol subcut USEASDIRECTD 03/27/23 05/12/23 (3 mL) subcutaneous pen (Novolog FlexPen U-100 Insulin aspart) insulin degludec 100 unit/mL 3 unit subcut DAILY PRN BS > 190 03/27/23 05/12/23 subcutaneous solution (Tresiba U-100 Insulin) insulin degludec 100 unit/mL 25 unit subcut BEDTIME 03/27/23 05/12/23 subcutaneous solution (Tresiba U-100 Insulin) rosuvastatin 40 mg tablet 40 mg PO DAILY 03/28/23 05/12/23 amlodipine 2.5 mg tablet (Norvasc) 2.5 mg PO BEDTIME Hypertension 05/12/23 05/12/23 fluticasone propionate 110 2 puff inhalation BID PRN 05/12/23 05/12/23 mcg/actuation HFA aerosol inhaler Shortness Of Breath Or Wheezing (Flovent HFA) trazodone 50 mg tablet 100 mg PO BEDTIME insomnia 05/12/23 05/12/23 Previous Rx's Medication Instructions Recorded clopidogrel 75 mg tablet 75 mg PO DAILY #30 tabs 05/13/23 heparin (porcine) 25,000 unit/250 25,000 unit (250 mL) continuous IV 05/13/23 mL in 0.45 % sodium chloride IV infusion .Q0M #6,000 mL soln lisinopril 20 mg tablet 20 mg PO .evening #30 tabs 05/28/23 metoprolol succinate 100 mg 100 mg PO DAILY #30 tabs 05/28/23 tablet,extended release 24 hr nitroglycerin 0.4 mg sublingual 0.4 mg sublingual Q5M PRN Angina 06/05/23 tablet #30 tabs Allergies Allergy/AdvReac Type Severity Reaction Status Date / Time apple [Apple] Allergy Unknown APPLE PEEL Verified 05/28/23 14:12 - ITCHY THROAT nut - unspecified [nut] Allergy Unknown ITCHY Verified 05/28/23 14:12 THROAT pineapple [Pineapple] Allergy Unknown ITCHY Verified 05/28/23 14:12 THROAT acetaminophen [From Percocet] Allergy Anxiety Verified 05/28/23 14:12 amoxicillin Allergy Itching Verified 05/28/23 14:12 oxycodone [From Percocet] Allergy Anxiety Verified 05/28/23 14:12 lim AdvReac Intermediate Swelling Verified 05/28/23 14:12 DUST Allergy Unknown EYES, NOSE Uncoded 05/11/23 14:38 ITCHY - ASTHMA GRASS Allergy Unknown ITCHY EYES Uncoded 05/11/23 14:38 - THROAT pet dander AdvReac Mild Itchy Eyes Uncoded 05/11/23 14:38 Review of Systems 2 Review of Systems: Constitutional : No Weight loss, No Fever, No Chills ENT/Mouth : No sore throat, No Rhinorrhea Eyes: No Eye Pain, No Swelling Cardiovascular : pos Chest Pain, pos SOB, no Dyspnea on Exertion, No Orthopnea, No Edema, No Palpitations Respiratory : No Cough, No Sputum Gastrointestinal : no Nausea, No Vomiting, No Diarrhea, No abdominal Pain, No Hematochezia, No Melena Genitourinary : No Dysuria, No Urinary Frequency Musculoskeletal : No joint pain, No Myalgias, No Joint Swelling Skin : No Skin Lesions, No rash Neuro : No Weakness, No Numbness, No Dizziness, No Headache All other systems reviewed and are negative PMFSH Past Medical History Attestation statement: The following information was validated with the patient. Source: old records reviewed Medical History Dizziness Orthostatic hypotension Stenosis of left vertebral artery CVA (cerebral vascular accident) Peripheral vascular disease Neuropathy Coronary artery disease Brain TIA Hypertension Diabetes Surgical History History of angioplasty of peripheral vessel Status post aorto-coronary artery bypass graft Family History Family History Father Coronary artery disease involving coronary bypass graft Mother No problems noted. Social History Social History Household Members: Family Household Members Other:: brother and nephew Housing: Apartment Do you presently have visiting nurse or other home services: No Alcohol intake: never Patient Tobacco Use Status: Former Tobacco user Years Smoked: Remote smoking, quit in her 30s Smoked in Last 30 Days: No Second Hand Smoke Exposure: No Use of substances other than those prescribed or required for medical reasons: No Advance Directives: No Advance Directives Information Provided: No Patient : No service: No Current occupational status: unemployed Physical Exam 2 Vital Signs: Vital Signs: Last Vital Signs Pulse 78 09/16/23 00:30 Resp 16 09/16/23 00:30 BP 147/54 H 09/16/23 00:30 Pulse Ox 98 09/16/23 00:30 O2 Del Method Room Air 09/16/23 00:30 BMI result Body Mass Index 28.5 Appearance: Alert. Oriented X3. No acute distress. Eyes: Pupils equal, round and reactive to light. ENT: Pharynx normal. Neck: Normal inspection. Neck supple. CVS: Normal heart rate and rhythm. Pulses normal. Respiratory: No respiratory distress. Breath sounds normal. Abdomen: Soft and nontender. Skin: Skin warm and dry. Normal skin color. Normal skin turgor. Extremities: No lower extremity edema. No calf ttp Neuro: Oriented X 3. No motor deficit. No sensory deficit. Medications Administered Discontinued Medications Generic Name Dose Route Start Last Admin Trade Name Freq PRN Reason Stop Dose Admin Sodium Chloride 500 mls @ 500 mls/hr 09/15/23 23:00 09/15/23 23:13 Ns IV 09/15/23 23:59 500 mls/hr .Q1H AILIN Administration Morphine Sulfate 4 mg 09/15/23 22:41 09/15/23 22:54 Morphine Sulfate 4 Mg/Ml Cartridge IVPUSH 09/15/23 22:42 4 mg ONCE ONE Administration Protocol Ondansetron HCl 4 mg 09/15/23 22:41 09/15/23 22:54 Ondansetron Hcl 4 Mg/2 Ml Vial IVPUSH 09/15/23 22:42 4 mg ONCE ONE Administration Medical Decision Making Medical Decision Making [facility] Narrative: 62 yo female with PMH of HLD, DM, HTN, unstable angina, CAD s/p CABG and PCI with recent cath 04/2023 showing multivessel ds and NIKOLAS to OM - she comes in with c/o stress at home feeling run down then developed chest pain at 6pm tonight that was different from her prior cardiac events she is compliant with her medications at this time will obtain labs, trop x 2, CXR, no signs of dvt no hypoxia doubt VTE. Will give morphine, hydrate given mild bump in Cr, obtain viral panel. High risk but she does note that is different from her prior cardiac pain. Differential Diagnosis Differential Diagnoses: The differential diagnosis associated with the presentation includes chest pain, viral syndrome, stress, dehydration Admission/Observation Consideration of admission/observation: Escalation of care including admission/observation considered chest pain resolved with morphine at this time no further pain was atypical from her prior events she wants to go home will DC home with precautions and any events needs to come back 7 hr trop negative Lab Data [facility] Lab Attestation statement: I reviewed the patient's lab results. trop flat x 2 09/15/23 22:21 09/15/23 22:21 Labs: Lab Results 09/15/23 09/15/23 09/16/23 Range/Units 22:21 23:00 00:42 WBC 10.5 (4.8-10.8) X10*3/uL RBC 4.37 (4.20-5.50) X10*6/uL Hgb 12.0 (12.0-16.0) g/dl Hct 35.9 L (37.0-47.0) % MCV 82.2 (80.0-98.0) fL MCH 27.5 (27.0-33.0) pg MCHC 33.4 (31.0-35.0) g/dl RDW 14.7 (11.0-16.0) % Plt Count 284 (160-400) X10*3/uL MPV 10.8 (9.4-12.3) fL Absolute Nucleated RBC 0.000 (0.0-0.012) X10*3/uL Nucleated RBC % (auto) 0.0 (0.0-0.2) /100WBC PT 12.6 (11.1-13.3) SEC INR 1.0 (0.9-1.1) Sodium 141 (135-145) mmol/L Potassium 5.2 H (3.3-5.1) mmol/L Chloride 108 (96-108) mmol/L Carbon Dioxide 21 L (22-29) mmol/L Anion Gap 17 (12-20) BUN 19 H (9-16) mg/dL Creatinine 1.50 H (0.5-1.4) mg/dL Estim Creat Clear Calc 34.4 Estimated GFR 35 Random Glucose 304 H (60-115) mg/dL Calcium 9.0 (8.4-10.2) mg/dL Total Bilirubin 0.3 (0.0-1.0) mg/dL AST 30 (5-31) U/L ALT 37 H (0-31) U/L Alkaline Phosphatase 59 (39-117) U/L Troponin I High Sens 5.7 D (<3.5-17.0) ng/L Total Protein 7.5 (6.5-8.0) g/dL Albumin 3.9 (3.5-5.0) g/dL Urine Color Yellow Urine Appearance Clear Urine pH 5.5 (5.0-9.0) Ur Specific [place] 1.015 (1.005-1.025) Urine Protein Negative (Neg-Trace) mg/dL Urine Glucose (UA) 500 H (Negative) mg/dL Urine Ketones Negative (Negative) mg/dL Urine Blood Negative (Negative) Urine Nitrite Negative (Negative) Ur Leukocyte Esterase Negative (Negative) Influenza Type A (PCR) NEGATIVE (Negative) Influenza Type B (PCR) NEGATIVE (Negative) RSV RNA Qual (PCR) NEGATIVE (Negative) SARS-CoV-2 RNA (RT-PCR) NEGATIVE (Negative) 09/16/23 Range/Units 01:07 WBC (4.8-10.8) X10*3/uL RBC (4.20-5.50) X10*6/uL Hgb (12.0-16.0) g/dl Hct (37.0-47.0) % MCV (80.0-98.0) fL MCH (27.0-33.0) pg MCHC (31.0-35.0) g/dl RDW (11.0-16.0) % Plt Count (160-400) X10*3/uL MPV (9.4-12.3) fL Absolute Nucleated RBC (0.0-0.012) X10*3/uL Nucleated RBC % (auto) (0.0-0.2) /100WBC PT (11.1-13.3) SEC INR (0.9-1.1) Sodium (135-145) mmol/L Potassium (3.3-5.1) mmol/L Chloride (96-108) mmol/L Carbon Dioxide (22-29) mmol/L Anion Gap (12-20) BUN (9-16) mg/dL Creatinine (0.5-1.4) mg/dL Estim Creat Clear Calc Estimated GFR Random Glucose (60-115) mg/dL Calcium (8.4-10.2) mg/dL Total Bilirubin (0.0-1.0) mg/dL AST (5-31) U/L ALT (0-31) U/L Alkaline Phosphatase (39-117) U/L Troponin I High Sens 6.8 (<3.5-17.0) ng/L Total Protein (6.5-8.0) g/dL Albumin (3.5-5.0) g/dL Urine Color Urine Appearance Urine pH (5.0-9.0) Ur Specific [place] (1.005-1.025) Urine Protein (Neg-Trace) mg/dL Urine Glucose (UA) (Negative) mg/dL Urine Ketones (Negative) mg/dL Urine Blood (Negative) Urine Nitrite (Negative) Ur Leukocyte Esterase (Negative) Influenza Type A (PCR) (Negative) Influenza Type B (PCR) (Negative) RSV RNA Qual (PCR) (Negative) SARS-CoV-2 RNA (RT-PCR) (Negative) Independent Interpretation I performed an independent interpretation of an: EKG and Plain X-Ray (normal ) Interpretation: Rate: 89 Rhythm: NSR [place]: left Normal P waves. Normal ARTI. Normal QRS complex. Poor R wave progression ST T wave : no NATALIA, slight depression I and aVL qTC: 450 prior studies: no acute ischemia - no change from prior The study has been interpreted contemporaneously by me. . Radiology Impression Discussion of test interpretation with radiology: I have reviewed the radiologist's reading. External Record Review External record reviewed: Inpatient record and Outpatient record Discharge Plan Discharge Clinical Impression: Atypical chest pain, Acute dehydration Patient Disposition: Home, Self-Care Instructions: Chest Pain (ED), Dehydration (ED) Additional Instructions: stay hydrated, drink plenty of water. try to take it easy for a day. any return of chest pain come back. do not ignore your symptoms. recheck kidney function with your doctor in the next week if you can. Prescriptions: No Action nitroglycerin 0.4 mg tablet, sublingual 0.4 mg sublingual Q5M PRN (Reason: Angina) Qty: 30 1RF albuterol sulfate [ProAir HFA] 90 mcg/actuation HFA aerosol inhaler 2 puff INHALATION Q4-6H PRN (Reason: wheezing) fluticasone propionate 50 mcg/actuation spray,suspension 1 spray intranasal DAILY PRN (Reason: Allergy Symptoms) aspirin 81 mg tablet,delayed release (DR/EC) 81 mg PO BEDTIME cilostazol 100 mg tablet 100 mg PO BEDTIME duloxetine 60 mg capsule,delayed release(DR/EC) 60 mg PO DAILY ezetimibe 10 mg tablet 10 mg PO BEDTIME gabapentin 600 mg tablet 600 mg PO TID metformin 1,000 mg tablet 1,000 mg PO BIDWM omeprazole 20 mg capsule,delayed release(DR/EC) 20 mg PO BEDTIME PRN (Reason: Heartburn) ranolazine 1,000 mg tablet extended release 12 hr 1,000 mg PO BID amlodipine [Norvasc] 2.5 mg tablet 2.5 mg PO BEDTIME fluticasone propionate [Flovent HFA] 110 mcg/actuation HFA aerosol inhaler 2 puff INHALATION BID PRN (Reason: Shortness Of Breath Or Wheezing) trazodone 50 mg tablet 100 mg PO BEDTIME clopidogrel 75 mg Tablet 75 mg PO DAILY Qty: 30 0RF heparin(porcine) in 0.45% NaCl 25,000 unit/250 mL Parenteral Solution 25,000 unit continuous IV infusion .Q0M Qty: 6000 0RF insulin degludec [Tresiba U-100 Insulin] 100 unit/mL solution 25 unit subcut BEDTIME fexofenadine 180 mg Tablet 180 mg PO BEDTIME PRN (Reason: Allergy Symptoms) diphenhydramine HCl 25 mg Tablet 25 mg PO BEDTIME PRN (Reason: Allergic Symptoms) insulin aspart U-100 [Novolog FlexPen U-100 Insulin] 100 unit/mL (3 mL) Insulin Pen See Protocol SUBCUT USEASDIRECTD Protocol: Insulin Correction Scale Less than or equal to 110 ---- Give (units): 0 111 to 150 Give (units): 0 151 to 200 Give (units): 2 201 to 250 Give (units): 4 251 to 300 Give (units): 6 301 to 350 Give (units): 8 Greater than 350 Give (units): 10 Call MD if Blood Glucose > : 350 insulin degludec [Tresiba U-100 Insulin] 100 unit/mL solution 3 unit subcut DAILY PRN (Reason: BS > 190) rosuvastatin 40 mg tablet 40 mg PO DAILY Ozempic 1 mg/dose (2 mg/1.5 mL) pen injector 2 mg subcut SAEED metoprolol succinate 100 mg tablet extended release 24 hr 100 mg PO DAILY Qty: 30 3RF lisinopril 20 mg tablet 20 mg PO .evening Qty: 30 3RF
[2023-09-15 22:31] LABS: Hematocrit 35.9 % (37.0-47.0); Mean Corpuscular HGB Conc 33.4 g/dl (31.0-35.0); Mean Corpuscular Hemoglobin 27.5 pg (27.0-33.0); Mean Corpuscular Volume 82.2 fL (80.0-98.0); Mean Platelet Volume 10.8 fL (9.4-12.3); Platelet Count 284 X10*3/uL (160-400); Red Blood Count 4.37 X10*6/uL (4.20-5.50); Red Cell Distribution Width 14.7 % (11.0-16.0); White Blood Count 10.5 X10*3/uL (4.8-10.8)
[2023-09-15 22:33] VITALS: PULSE 89
[2023-09-15 22:37] LABS: Prothrombin Time 12.6 SEC (11.1-13.3)
[2023-09-15 22:50] LABS: Alanine Aminotransferase 37 U/L (0-31); Albumin Level 3.9 g/dL (3.5-5.0); Alkaline Phosphatase 59 U/L (39-117); Anion Gap 17 (12-20); Aspartate Amino Transferase 30 U/L (5-31); Bilirubin Total 0.3 mg/dL (0.0-1.0); Blood Urea Nitrogen 19 mg/dL (9-16); Carbon Dioxide 21 mmol/L (22-29); Chloride 108 mmol/L (96-108); Creatinine Clr Calc Pharmacy 34.4; Estimated Glomerular Filt Rate 35; Glucose Random 304 mg/dL (60-115); Potassium 5.2 mmol/L (3.3-5.1); Sodium 141 mmol/L (135-145); Total Protein 7.5 g/dL (6.5-8.0)
[2023-09-15 22:53] LABS: Troponin-I High Sensitivity 5.7 ng/L (<3.5-17.0)
[2023-09-15 22:54] VITALS: RESP 16
[2023-09-15] MEDS: Morphine Sulfate 4 MG/ML CARTRIDGE IVPUSH (22:54)
[2023-09-15] MEDS: ondansetron HCL 4 MG/2 ML VIAL IVPUSH (22:54)
[2023-09-15] MEDS: 0.9 % Sodium Chloride 500 ML IV (23:13)
[2023-09-15 23:43] LABS: Influenza A PCR NEGATIVE (Negative); Influenza B PCR NEGATIVE (Negative); Resp Syncy Virus RNA Qual PCR NEGATIVE (Negative); SARS COV2 PCR INHOUSE NEGATIVE (Negative)
[2023-09-16 00:30] VITALS: BP 147/54; PULSE 78; RESP 16; O2SAT 98
[2023-09-16 00:49] LABS: Appearance Urine Clear; Color Urine Yellow; Glucose Urine UA 500 mg/dL (Negative); Leukocyte Esterase Urine Negative (Negative); Nitrite Urine Negative (Negative); PH 5.5 (5.0-9.0); Specific Gravity - Urine 1.015 (1.005-1.025); Urine Blood Negative (Negative); Urine Ketones Negative (Negative); Urine Protein Negative (Neg-Trace)
[2023-09-16 01:35] LABS: Troponin-I High Sensitivity 6.8 ng/L (<3.5-17.0)
[2023-09-16 03:36] VITALS: BP 132/72; PULSE 91; RESP 16; TEMP 36.8; O2SAT 98
[2023-09-16 06:34] VITALS: BP 129/68; PULSE 81; RESP 16; TEMP 36.7; O2SAT 98
== END 2023-09-16 06:35 | disposition home or self-care (01) ==
PROVIDERS: Emergency Provider Emergency Medicine; PCP Internal Medicine
DX: R07.89 Other chest pain (principal); E86.0 Dehydration; I25.110 Atherosclerotic heart disease of native coronary artery with unstable angina pectoris; I10 Essential (primary) hypertension; E11.9 Type 2 diabetes mellitus without complications; I25.2 Old myocardial infarction; Z86.73 Personal history of transient ischemic attack (TIA), and cerebral infarction without residual deficits; Z95.1 Presence of aortocoronary bypass graft; Z03.818 Encounter for observation for suspected exposure to other biological agents ruled out
CPT/HCPCS: 0241U; 36415; 71045; 73502; 80053; 81003; 84484; 85027; 85610; 93005; 96361; 96374; 96375; 99284; 99285; J2270; J2405

== ENCOUNTER → 2023-09-15 21:57 | Outpatient (BNV) | payer MEDICARE, MEDICAID, SELFPAY | PROVIDERS: Emergency Provider Emergency Medicine; PCP Internal Medicine; Visit Provider Internal Medicine Cardiovascular Disease | DX: R94.31 Abnormal electrocardiogram [ECG] [EKG] (principal) | CPT/HCPCS: 93010 ==

== ENCOUNTER 2024-10-16 17:40 | Inpatient (IN) | payer MEDICARE, MEDICAID, SELFPAY ==
--- NOTE | ~2024-10-16 | XR_ITS ---
CLINICAL HISTORY: atraumatic left shoulder pain 3 view left shoulder Comparison: None Findings: Osteopenia. No acute fracture or malalignment. Moderate osteoarthritic changes of the AC and glenohumeral joint. No erosions. No radiopaque foreign body. Calcific tendinitis along the supraspinatus. Median sternotomy wires and clips. IMPRESSION: 1. No acute findings This document has been electronically signed by: Amandeep Fountain MD on 10/17/2024 01:17:44
--- NOTE | ~2024-10-16 | US_ITS ---
CLINICAL HISTORY: left calf pain r o DVT Venous duplex ultrasound left lower extremity Comparison: None Findings: The visualized deep veins are fully compressible with normal Doppler color flow and spectral tracings. Stent noted in the left femoral artery, with questionable, age indeterminate occlusion in the proximal-mid segments. Stenoses throughout the visualized femoral and popliteal arteries. These findings may be further evaluated with lower extremity CTA if concern is present as well comparison with prior imaging. No popliteal cyst. IMPRESSION: Negative for left lower extremity deep vein thrombosis. Possible age-indeterminate occlusion of the visualized left femoral artery stent graft, please see above. This document has been electronically signed by: Amandeep Fountain MD on 10/17/2024 02:58:01
--- NOTE | ~2024-10-16 | CT_ITS ---
CLINICAL HISTORY: claudication ?occlusion to SFA stent CTA left lower extremity with contrast. Sagittal and coronal MIPS. Comparison: None Findings: Vascular findings: Calcific plaques are seen in the distal left external iliac artery without significant stenosis. Calcific plaques are seen in the left common femoral, profunda femoris, superficial femoral, and popliteal arteries. Severe multifocal stenosis is seen in the proximal left superficial femoral artery followed by long segment occlusion involving the SFA stent of 10.7 cm in length. There is reconstitution of flow into the distal aspect of the stent followed by significant multifocal occlusions/high-grade stenoses. Multifocal occlusion/high-grade stenoses are seen in the left popliteal artery. Calcifications are seen in the trifurcation vessels. There is three-vessel runoff in the left leg. Multifocal stenoses are seen in the posterior tibial artery and proximal anterior tibial and peroneal arteries. There is significant focal stenosis of the right common femoral artery secondary to a non calcific plaque. The right SFA stent is patent. There is significant focal stenosis of the right popliteal artery secondary to noncalcific plaque. There is single-vessel runoff in the right leg (peroneal artery) with a patent stent. Other findings: Examination of the pelvis demonstrates no significant abnormality. No acute osseous abnormality is identified. IMPRESSION: 1. Severe multifocal stenosis in the left proximal superficial femoral artery followed by long segment occlusion involving the SFA stent of 10.7 cm in length. There is reconstitution of flow into the distal aspect of the stent followed by significant multifocal occlusions/high-grade stenoses. Multifocal occlusions/high-grade stenoses are also seen in the left popliteal artery. There is three-vessel runoff in the left leg. Multifocal stenoses are seen in the left posterior tibial artery and proximal left anterior tibial and peroneal arteries. 2. Significant focal stenosis of the right common femoral artery and right popliteal artery. There is single-vessel runoff in the right leg (peroneal artery). This document has been electronically signed by: Noelle Nicole on 10/17/2024 05:54:45
--- NOTE | 2024-10-16 18:23 | ED_ITS ---
HPI - General Adult General Chief complaint: Extremity Problem Stated complaint: left leg, hand, shoulder pain Time Seen by Provider: 10/17/24 00:29 Source: patient, family (), RN notes reviewed and old records reviewed Mode of arrival: ambulatory Limitations: no limitations History of Present Illness ED Provider: KELLY FRITZ PA-C HPI narrative: 63-year-old female with pmhx significant for HLD, DM, HTN, unstable angina, CAD s/p CABG and PCI last cath 05/13/23 showed LMCA 70% distal stenosis, LAD mid occluded with patent DILLON to LAD, LCx 70% prox stenosis diffuse ds distally, RCA patent mid RCA stent, occluded ostial PDA stent, chronic total occlusion in R PDA - graft lesions aorta to left 1st ob marginal 80% stenosis - severe multivessel disease had NIKOLAS at that time to vein graft to OM presents to the ED today with multiple concerns. She reports left lower leg discomfort, extending from left knee into foot x3 weeks, worsening. Pain is primarily present with walking. States she is anticoagulated on aspirin and Plavix. She has not had an ultrasound of the lower extremity in some time . She denies any chest pain, shortness of breath, cough or hemoptysis. Denies any swelling of the left lower extremity. Denies any trauma or injury to the LE. She has been taking gabapentin and Advil which provide minimal temporary relief however pain returns. She also endorses left shoulder pain for months. Pain is exacerbated with moving her left shoulder. Pain is now extending down her left arm. Denies any injury or trauma. Denies any numbness/tingling/weakness of the left upper extremity. She denies any recent travel or long car rides. No OCP use. No hormone use. States she recently moved here from [place]. She has had difficulty establishing care with a PCP. She has an appointment with a new PCP next week. Related Data Home Medications ?Medication ?Instructions ?Recorded ?Confirmed fluticasone propionate 50 1 spray intranasal DAILY PRN 08/12/22 10/17/24 mcg/actuation nasal Allergy Symptoms spray,suspension aspirin 81 mg tablet,delayed 81 mg PO BEDTIME blood thinner 09/06/22 10/17/24 release duloxetine 60 mg capsule,delayed 60 mg PO DAILY 09/06/22 10/17/24 release ezetimibe 10 mg tablet 10 mg PO BEDTIME 09/06/22 10/17/24 gabapentin 600 mg tablet 600 mg PO TID 09/06/22 10/17/24 metformin 1,000 mg tablet 1,000 mg PO BIDWM 09/06/22 10/17/24 omeprazole 20 mg capsule,delayed 20 mg PO DAILY@0630 09/06/22 10/17/24 release ranolazine 1,000 mg 1,000 mg PO BID 09/06/22 10/17/24 tablet,extended release,12 hr diphenhydramine HCl 25 mg tablet 25 mg PO BEDTIME PRN Allergic 03/27/23 10/17/24 Symptoms insulin aspart U-100 100 unit/mL See Protocol subcut USEASDIRECTD 03/27/23 10/17/24 (3 mL) subcutaneous pen (Novolog FlexPen U-100 Insulin aspart) insulin degludec 100 unit/mL 25 unit subcut BEDTIME 03/27/23 05/12/23 subcutaneous solution (Tresiba U-100 Insulin) rosuvastatin 40 mg tablet 40 mg PO DAILY 03/28/23 10/17/24 duloxetine 30 mg capsule,delayed 30 mg PO DAILY 10/17/24 10/17/24 release ergocalciferol (vitamin D2) 1,250 1,250 mcg PO TU@0900 10/17/24 10/17/24 mcg (50,000 unit) capsule metoprolol succinate 100 mg 100 mg PO BEDTIME 10/17/24 10/17/24 tablet,extended release 24 hr semaglutide 2 mg/dose (8 mg/3 mL) 2 mg subcut MO@0900 10/17/24 10/17/24 subcutaneous pen injector (Ozempic) Previous Rx's ?Medication ?Instructions ?Recorded clopidogrel 75 mg tablet 75 mg PO DAILY #30 tabs 05/13/23 Allergies Allergy/AdvReac Type Severity Reaction Status Date / Time apple [Apple] Allergy Unknown APPLE PEEL Verified 10/16/24 18:28 - ITCHY THROAT nut - unspecified [nut] Allergy Unknown ITCHY Verified 10/16/24 18:28 THROAT pineapple [Pineapple] Allergy Unknown ITCHY Verified 10/16/24 18:28 THROAT acetaminophen [From Percocet] Allergy Anxiety Verified 10/16/24 18:28 amoxicillin Allergy Itching Verified 10/16/24 18:28 oxycodone [From Percocet] Allergy Anxiety Verified 10/16/24 18:28 lim AdvReac Intermediate Swelling Verified 10/16/24 18:28 DUST Allergy Unknown EYES, NOSE Uncoded 10/16/24 18:28 ITCHY - ASTHMA GRASS Allergy Unknown ITCHY EYES Uncoded 10/16/24 18:28 - THROAT pet dander AdvReac Mild Itchy Eyes Uncoded 10/16/24 18:28 Review of Systems 2 Review of Systems: Yes all other systems are reviewed and are negative [facility] Past Medical History Attestation statement: The following information was validated with the patient. Source: old records reviewed and nursing notes reviewed Medical History Dizziness Orthostatic hypotension Stenosis of left vertebral artery CVA (cerebral vascular accident) Peripheral vascular disease Neuropathy Coronary artery disease Brain TIA Hypertension Diabetes Surgical History History of angioplasty of peripheral vessel Status post aorto-coronary artery bypass graft Family History Family History Father Coronary artery disease involving coronary bypass graft Mother No problems noted. Social History Social History Household Members: Family Household Members Other:: lives with brother Housing: Apartment Do you presently have visiting nurse or other home services: No Alcohol intake: never Patient Tobacco Use Status: Former Tobacco user Years Smoked: Remote smoking, quit in her 30s Second Hand Smoke Exposure: No service: No Current occupational status: unemployed Physical Exam ED Vital Signs: Vital Signs - 24 hr 10/16/24 18:24 10/16/24 22:04 10/17/24 02:38 Temperature 96.7 F L 98.8 F 96.9 F Pulse Rate 84 77 71 Respiratory Rate 16 16 16 Blood Pressure 134/62 146/65 H 173/75 H Pulse Oximetry 99 98 99 Oxygen Delivery Method Room Air Room Air Room Air BMI result Body Mass Index 24.7 Vital signs stable, not tachycardic or hypoxic General: well appearing, in no acute distress. Skin: Warm, dry, intact. No rashes or lesions. Head: Normocephalic, atraumatic. EENT: Hearing is intact b/l. Conjunctiva clear. PERRLA. EOM intact. Moist mucous membranes.? Neck: No midline cervical spinous tenderness or step-off deformity. Full ROM intact to C-spine Cardiac: Chest wall symmetric. RRR Lungs: Normal respiratory effort without accessory muscle use. CTA bilaterally Back: No midline spinous or paraspinal tenderness. No step off deformity. Ext: +left shoulder without noted deformity or overlying skin changes. Full ROM intact with discomfort on extension and abduction of left shoulder. 2+ radial/ulnar pulse intact. Sensation intact. Left lower extremity without pitting edema. No overlying skin changes noted to left lower leg. Minimal calf tenderness. left DP pulse intact. Sensation intact. Ambulating with steady gait. Neuro: AOx3. Normal speech. Ambulating with steady gait. Course Course Course Narrative: This is an RME performed by Neelima Pisano CNP: Additional HPI, ROS, PE not included below will be deferred to primary provider. Patient is a 63-year-old who presents to the emergency department for evaluation of left leg pain from the knee all the way down to the foot, the left shoulder extending down to the elbow, and of the left hand. Pain has been ongoing for the past 3 weeks, progressively worsening. Has been taking Advil, gabapentin, gets some relief but it is short lived before the pain returns. Denies chest pain, shortness of breath, difficulty breathing, numbness or tingling of the extremities, swelling in the extremities. Has not seen a doctor in regards to these pains, states she does not have a PCP. Plan: Serum labs Reevaluation(s) Reevaluation #1: 0216 -- CBC without leukocytosis or left shift. Microcytic anemia, H&H stable and above transfusion threshold. Chemistry without acute electrolyte abnormality requiring intervention. No BRITTANY. Random glucose 192. Total CK 229. No concern for rhabdo. Liver function WNL. > x-ray left shoulder showing calcific tendonitis along supraspinatus muscle. No acute fracture or malalignment. There are moderate osteoarthritic changes of the AC and glenohumeral joint. No effusion. > venous duplex LLE pending > medicated with oxycodone with good effect 0400 -- I received a critical call from Radiology regarding patient's venous duplex. Negative for left lower extremity DVT. Stent noted to left femoral artery with questionable age-indeterminate occlusion in the proximal mid segments. Stenoses throughout the visualized femoral and popliteal arteries. Recommending lower extremity CTA. > call out to vascular surgery dr. melgar > discussed w/ hospitalist dr. owens - recommending IV heparin. CTA left LE ordered for further evaluation. he has accepted patient admitted to medicine. patient and are agreeable. Medications Administered Discontinued Medications Generic Name Dose Route Start Last Admin Trade Name Freq PRN Reason Stop Dose Admin Amlodipine Besylate 2.5 mg 10/17/24 06:10 10/17/24 06:40 Amlodipine Besylate 2.5 Mg Tablet PO 10/17/24 06:11 2.5 mg ONCE ONE Administration Protocol Gabapentin 600 mg 10/17/24 15:00 10/17/24 12:39 Gabapentin 600 Mg Tablet PO 600 mg TID [facility] Administration Heparin Sodium (Porcine) 5,000 unit 10/17/24 03:47 10/17/24 04:14 Heparin Sodium,Porcine 5,000 Unit/Ml Vial IVPUSH 10/17/24 03:48 5,000 unit ONCE ONE Administration Heparin Sodium/Sodium Chloride 25,000 unit in 250 mls @ 0 mls/hr 10/17/24 04:00 10/17/24 11:30 Heparin Sodium,Porcine/1/2ns IVCONT 0 units/kg/hr .Q0M [facility] 0 mls/hr Titration Protocol Per Protocol Insulin Human Lispro 0 unit 10/17/24 07:30 10/17/24 11:14 Insulin Lispro 100 Unit/Ml 3 Ml Vial SUBCUT 2 unit QIDACHS [facility] Administration Protocol Iohexol 95 ml 10/17/24 04:41 10/17/24 04:42 Iohexol 350 Mg/Ml 100 Ml Infus..Btl IV 10/17/24 04:42 95 ml ONCE ONE Administration Metoprolol Tartrate 50 mg 10/17/24 06:10 10/17/24 06:39 Metoprolol Tartrate 50 Mg Tablet PO 10/17/24 06:11 50 mg ONCE ONE Administration Protocol Omeprazole 20 mg 10/17/24 06:30 10/17/24 06:40 Omeprazole 20 Mg Capsule. PO 20 mg DAILY@0630 [facility] Administration Oxycodone HCl 5 mg 10/17/24 00:40 10/17/24 01:12 Oxycodone Hcl Immed Release 5 Mg Tablet PO 10/17/24 00:41 5 mg ONCE ONE Administration Sodium Chloride 3 ml 10/17/24 08:00 10/17/24 09:24 0.9 % Sodium Chloride Flush 3 Ml Syringe IVFLUSH Not Given QSHIFT [facility] Medical Decision Making Medical Decision Making [facility] Narrative: 63-year-old female with pmhx significant for HLD, DM, HTN, unstable angina, CAD s/p CABG and PCI last cath 05/13/23 showed LMCA 70% distal stenosis, LAD mid occluded with patent DILLON to LAD, LCx 70% prox stenosis diffuse ds distally, RCA patent mid RCA stent, occluded ostial PDA stent, chronic total occlusion in R PDA - graft lesions aorta to left 1st ob marginal 80% stenosis - severe multivessel disease had NIKOLAS at that time to vein graft to OM presents to the ED today with left shoulder and left lower extremity pain. Noted to be hypertensive to 146/65. Not tachycardic or hypoxic. She is nontoxic appearing in no acute distress. On exam, left shoulder without noted deformity or overlying skin changes. Full ROM intact with discomfort on extension and abduction of left shoulder. 2+ radial/ulnar pulse intact. Sensation intact. Left lower extremity without pitting edema. No overlying skin changes noted to left lower leg. Minimal calf tenderness. left DP pulse intact. Sensation intact. Ambulating with steady gait. Differential diagnosis includes left shoulder arthritis, contusion, tendinitis, bursitis. Unlikely upper extremity DVT, neurovascular compromise or threat to limb. Unlikely ACS. Differential diagnosis includes claudication, PVD, DVT of left lower extremity. Unlikely arterial occlusion, neurovascular compromise or threat to limb. Screening labs obtained from triage. Will add on left shoulder x-ray, venous duplex of left lower extremity. Oxycodone ordered for pain control. Plan to re-evaluate. Differential Diagnosis Differential Diagnoses: The differential diagnosis associated with the presentation includes as above. Admission/Observation Consideration of admission/observation: Escalation of care including admission/observation considered Patient admitted to medicine for further management of left SFA stent occlusion Consult Healthcare Provider Management of the patient was discussed with: Hospitalist (dr. owens) Lab Data [facility] Lab Attestation statement: I reviewed the patient's lab results. As above 10/17/24 07:44 10/17/24 07:44 Labs: Lab Results 10/16/24 10/17/24 10/17/24 Range/Units 19:18 04:00 04:00 WBC 8.7 7.3 (4.8-10.8) X10*3/uL RBC 4.26 3.99 L (4.20-5.50) X10*6/uL Hgb 10.9 L 10.1 L (12.0-16.0) g/dl Hct 32.9 L 30.7 L (37.0-47.0) % MCV 77.2 L 76.9 L (80.0-98.0) fL MCH 25.6 L 25.3 L (27.0-33.0) pg MCHC 33.1 32.9 (31.0-35.0) g/dl RDW 15.2 15.3 (11.0-16.0) % Plt Count 222 210 (160-400) X10*3/uL MPV 10.4 10.4 (9.4-12.3) fL Immature Gran % (Auto) 0.2 (0.0-0.4) % Neut % (Auto) 64.5 (45-73) % Lymph % (Auto) 23.2 (20-40) % [place] % (Auto) 6.3 (2-11) % Eos % (Auto) 5.1 H (0-4) % Baso % (Auto) 0.7 (0-2) % Lymph # (Auto) 2.0 (1.2-4.9) X10*3/uL [place] # (Auto) 0.6 (0.1-1.2) X10*3/uL Eos # (Auto) 0.4 (0.0-0.4) X10*3/uL Baso # (Auto) 0.1 (0.0-0.2) X10*3/uL Abs Immat Gran (auto) 0.02 (0.00-0.03) X10*3/uL Absolute Neuts (auto) 5.6 (2.0-8.3) x10*3/uL Absolute Nucleated RBC 0.000 0.000 (0.0-0.012) X10*3/uL Nucleated RBC % (auto) 0.0 0.0 (0.0-0.2) /100WBC PT 12.0 11.0 (10.9-12.4) SEC INR 1.0 0.9 (0.9-1.1) aPTT Heparin Protocol Cancelled 29.3 L D Sodium 141 (135-145) mmol/L Potassium 4.1 D (3.3-5.1) mmol/L Chloride 106 (96-108) mmol/L Carbon Dioxide 27 (22-29) mmol/L Anion Gap 12 (12-20) BUN 8 L (9-16) mg/dL Creatinine 0.77 (0.5-1.4) mg/dL Estim Creat Clear Calc 61.8 Estimated GFR > 60 Random Glucose 192 H (60-115) mg/dL Calcium 8.9 (8.4-10.2) mg/dL Magnesium 1.7 (1.6-2.6) mg/dL Total Bilirubin 0.3 (0.0-1.0) mg/dL AST 26 (5-31) U/L ALT 27 (0-31) U/L Alkaline Phosphatase 54 (39-117) U/L Total Creatine Kinase 229 H (26-140) U/L C-Reactive Protein < 0.10 (< or = 0.50) mg/dL Total Protein 6.8 (6.5-8.0) g/dL Albumin 3.8 (3.5-5.0) g/dL Independent Interpretation I performed an independent interpretation of an: Plain X-Ray and Ultrasound Interpretation: X-ray left shoulder without fracture, noted calcifications to supraspinatus muscle Venous duplex left lower extremity showing occluded SFA stent Radiology Impression Discussion of test interpretation with radiology: I have reviewed the radiologist's reading. Radiologist Impression: Procedure(s): XR shoulder LT min 2V Accession Number(s): [id number] cc: Physician,None ; Kelly Fritz~ CLINICAL HISTORY: atraumatic left shoulder pain 3 view left shoulder Comparison: None Findings: Osteopenia. No acute fracture or malalignment. Moderate osteoarthritic changes of the AC and glenohumeral joint. No erosions. No radiopaque foreign body. Calcific tendinitis along the supraspinatus. Median sternotomy wires and clips. IMPRESSION: 1. No acute findings This document has been electronically signed by: Amandeep Fountain MD on 10/17/2024 01:17:44 Procedure(s): US venous duplex LE LT Accession Number(s): [id number] cc: Physician,None ; Kelly Fritz~ ADDENDUMThis document has been electronically signed by: Amandeep Fountain MD on 10/17/2024 02:58:01 ADDENDUM: This report was discussed with Catrina Mendoza on October 17, 2024 02:58:00 EDT. This document has been electronically signed by: Magui Gonzalez on 10/17/2024 03:00:23 Addendum Dictated By: Amandeep Fountain MD Addendum Signed By: <Electronically signed by Amandeep Fountain MD in [place]> 10/17/24300 Addendum Cosigned By: DD/ /08/257 TD/TT: 10/17/2409/08/299 CLINICAL HISTORY: left calf pain r o DVT Venous duplex ultrasound left lower extremity Comparison: None Findings: The visualized deep veins are fully compressible with normal Doppler color flow and spectral tracings. Stent noted in the left femoral artery, with questionable, age indeterminate occlusion in the proximal-mid segments. Stenoses throughout the visualized femoral and popliteal arteries. These findings may be further evaluated with lower extremity CTA if concern is present as well comparison with prior imaging. No popliteal cyst. IMPRESSION: Negative for left lower extremity deep vein thrombosis. Possible age-indeterminate occlusion of the visualized left femoral artery stent graft, please see above. This document has been electronically signed by: Amandeep Fountain MD on 10/17/2024 02:58:01 Independent Historian Clinical information obtained from an independent historian. History obtained from or confirmed by: Spouse () External Record Review External record reviewed: Inpatient record Chronic Conditions Patient?s care impacted by: Other Social Determinants Patient?s care significantly limited by Social Determinants of Health including: Other Social Determinant of Health Critical Care Time Critical Care Time Critical Care Time: Yes Total Critical Care Time: 40 Attestation: Critical care time in the amount of 40 minutes has been provided to the patient in terms of direct patient care, frequent reevaluation, consultation with vascular surgery and hospitalist, review and interpretation of medical data and results, and management of potentially life-threatening conditions. This is all outside of any medical procedures. Discharge Plan Discharge Clinical Impression: Femoral artery occlusion, left, Calcific tendonitis of left shoulder Patient Disposition: Admitted As Inpatient Interventions: Admission Worksheet (ED) Last Done: 10/17/24 04:31 Discharge Date/Time: 10/17/24 05:36
[2024-10-16 18:24] VITALS: BP 134/62; PULSE 84; RESP 16; TEMP 35.9; O2SAT 99; BMI 24.7
[2024-10-16 19:19] LABS: MANUAL DIFF FLAG NO
[2024-10-16 19:23] LABS: Basophils Absolute Auto 0.1 X10*3/uL (0.0-0.2); Basophils Percent Auto 0.7 % (0-2); Eosinophils Absolute Auto 0.4 X10*3/uL (0.0-0.4); Eosinophils Percent Auto 5.1 % (0-4); Hematocrit 32.9 % (37.0-47.0); Hemoglobin 10.9 g/dl (12.0-16.0); Imm Gran Abs Auto 0.02 X10*3/uL (0.00-0.03); Imm Gran Pct Auto 0.2 % (0.0-0.4); Lymphocytes Percent Auto 23.2 % (20-40); Mean Corpuscular HGB Conc 33.1 g/dl (31.0-35.0); Mean Corpuscular Hemoglobin 25.6 pg (27.0-33.0); Mean Corpuscular Volume 77.2 fL (80.0-98.0); Mean Platelet Volume 10.4 fL (9.4-12.3); Monocytes Absolute Auto 0.6 X10*3/uL (0.1-1.2); Monocytes Percent Auto 6.3 % (2-11); Neutrophils Absolute Auto 5.6 x10*3/uL (2.0-8.3); Neutrophils Percent Auto 64.5 % (45-73); Platelet Count 222 X10*3/uL (160-400); Red Blood Count 4.26 X10*6/uL (4.20-5.50); Red Cell Distribution Width 15.2 % (11.0-16.0); White Blood Count 8.7 X10*3/uL (4.8-10.8)
[2024-10-16 19:38] LABS: Alanine Aminotransferase 27 U/L (0-31); Albumin Level 3.8 g/dL (3.5-5.0); Alkaline Phosphatase 54 U/L (39-117); Anion Gap 12 (12-20); Aspartate Amino Transferase 26 U/L (5-31); Bilirubin Total 0.3 mg/dL (0.0-1.0); Blood Urea Nitrogen 8 mg/dL (9-16); C Reactive Protein < 0.10 mg/dL (< or = 0.50); Calcium 8.9 mg/dL (8.4-10.2); Carbon Dioxide 27 mmol/L (22-29); Chloride 106 mmol/L (96-108); Creatinine Clr Calc Pharmacy 61.8; Estimated Glomerular Filt Rate > 60; Glucose Random 192 mg/dL (60-115); Magnesium 1.7 mg/dL (1.6-2.6); Potassium 4.1 mmol/L (3.3-5.1); Sodium 141 mmol/L (135-145); Total Protein 6.8 g/dL (6.5-8.0)
[2024-10-16 22:04] VITALS: BP 146/65; PULSE 77; RESP 16; TEMP 37.1; O2SAT 98
--- NOTE | 2024-10-16 22:38 | PC.NURSE ---
Patient is a 63-year-old who presents to the emergency department for evaluation of left leg pain from the knee all the way down to the foot, the left shoulder extending down to the elbow, and of the left hand. Pain has been ongoing for the past several months, progressively worsening. Has been taking Advil, gabapentin, gets some relief but it is short lived before the pain returns. No pain at rest but pain increases with ambulation. Denies chest pain, shortness of breath, difficulty breathing, numbness or tingling of the extremities, swelling in the extremities. History of DM and PVD. Alert and oriented. Brother at the bedside. Lungs clear bilat. Respirations even and non-labored. c/o left sided pain, states she thinks it is the bones . Positive pedal pulses with no edema noted
[2024-10-17] MEDS: oxyCODONE HCl Immed Release 5 MG TABLET PO (01:12)
[2024-10-17 02:38] VITALS: BP 173/75; PULSE 71; RESP 16; TEMP 36.1; O2SAT 99
[2024-10-17 04:06] LABS: Hematocrit 30.7 % (37.0-47.0); Hemoglobin 10.1 g/dl (12.0-16.0); Mean Corpuscular HGB Conc 32.9 g/dl (31.0-35.0); Mean Corpuscular Hemoglobin 25.3 pg (27.0-33.0); Mean Corpuscular Volume 76.9 fL (80.0-98.0); Mean Platelet Volume 10.4 fL (9.4-12.3); Platelet Count 210 X10*3/uL (160-400); Red Blood Count 3.99 X10*6/uL (4.20-5.50); Red Cell Distribution Width 15.3 % (11.0-16.0); White Blood Count 7.3 X10*3/uL (4.8-10.8)
[2024-10-17 04:12] LABS: INTERNATIONAL NORM RATIO 0.9 (0.9-1.1)
[2024-10-17 04:14] LABS: PTT Heparin Drip 29.3 SEC (53-77.9)
[2024-10-17] MEDS: Heparin Sodium,Porcine 5,000 UNIT/ML VIAL 5000 UNIT IVPUSH (04:14)
--- NOTE | 2024-10-17 04:16 | PC.NURSE ---
Pt moved into ed25, changed into hospital gown and placed on case monitor. 1 20g IV placed in LAC. attempted second line multiple times without success
[2024-10-17] MEDS: iohexoL 350 MG/ML 100 ML INFUS..BTL 95 ML IV (04:42)
[2024-10-17] MEDS: Heparin Sodium,Porcine/1/2NS 25,000 UNIT/250 ML IV.SOLN 8.3 UNIT IVCONT (04:44)
--- NOTE | 2024-10-17 05:30 | PM.IMHP ---
History of Present Illness Date of Service: 10/17/24 <[facility] - Last Filed: 10/17/24 05:58> Attending physician on admission: Roxanna Peters <[facility] - Last Filed: 10/17/24 05:58> Chief Complaint: Left leg pain <[facility] - Last Filed: 10/17/24 05:58> Patient is a 63-year-old female with past medical history of CAD, CABG 2018, hypertension, hyperlipidemia, TIA, peripheral vascular disease, insulin-dependent diabetes type 2, hysterectomy, , neuropathy GERD reports in the emergency department after months of increasing left leg pain which is now continuous and throbbing with no relief regarding position. Patient also reports chronic left shoulder pain that radiates down to the hand. Patient states both her hands and feet are always cold. Patient states she believes she has a blood clot in her left leg. Imaging indicates age indeterminate occlusion of the visualized left femoral artery stent graft. Doppler negative for DVT. Patient currently does have a bounding left femoral pulse but right femoral pulse very difficult to locate. Skin in the femoral area is warm, , no swelling. Patient has been taking aspirin and Plavix for over a year now. Patient has not been told that she may be a Plavix nonresponder. Patient moved to [place] approximately 45 days prior and currently does not have any primary care provider. Patient had not seen a vascular doctor for some time down in [place] and has learned to live with her symptoms but is now concerned. X-ray done of the left shoulder, moderate osteoarthritic changes in the AC and glenohumeral joint. No erosions or foreign bodies found. Patient also has a calcific tendinitis along the supraspinatus. Median sternotomy wires and clips are in place. Patient currently denies any chest pain, shortness of breath at rest or with exertion, , nausea , vomiting abdominal pain, headaches or visual changes. Patient states the pain in her left leg is now again consistent, throbbing, burning with no relief. Bilateral feet are cold to the touch unable to appreciate dorsalis pedis or posterior tibialis pulses. No open wounds found. Patient was a previous smoker who quit in her 20s. Patient uses alcohol only on occasion. No history of marijuana or illicit drugs. Patient has multiple allergies that are accurately listed. <Ghazal MedinaBUSHRA salazar - Last Filed: 10/17/24 05:58> Review of Systems Review of Systems: Patient currently denies any chest pain, headache, visual changes, abdominal pain, nausea or vomiting. Patient denies diarrhea or constipation. Patient reports a chronic ongoing left shoulder pain. <Ghazal KenyENRIQUE salazarMAMADOU - Last Filed: 10/17/24 05:58> Yes all other systems are reviewed and are negative <[facility] - Last Filed: 10/17/24 05:58> [facility] Medical History: Medical History Dizziness Orthostatic hypotension Stenosis of left vertebral artery CVA (cerebral vascular accident) Peripheral vascular disease Neuropathy Coronary artery disease Brain TIA Hypertension Diabetes <Ghazal Keny, [facility] - Last Filed: 10/17/24 05:58> Cognitive capacity: Alert and orientated x3 <[facility] - Last Filed: 10/17/24 05:58> Functional capacity: independent ambulation <[facility] - Last Filed: 10/17/24 05:58> Patient : No <[place] Keny, [facility] - Last Filed: 10/17/24 05:58> Family History: Family History Father Coronary artery disease involving coronary bypass graft Mother No problems noted. <[place] Keny CITRUS PEELERMichelle - Last Filed: 10/17/24 05:58> Pertinent family history: Father alive age 83 with significant history of vascular disease Mother from gangrene from a sacral wound and Alzheimer's <[facility] - Last Filed: 10/17/24 05:58> Surgical History: Surgical History History of angioplasty of peripheral vessel Status post aorto-coronary artery bypass graft <[facility] sal[facility] - Last Filed: 10/17/24 05:58> Social History: Social History Household Members: Family Household Members Other:: brother and nephew Housing: Apartment Do you presently have visiting nurse or other home services: No Alcohol intake: never Patient Tobacco Use Status: Former Tobacco user Years Smoked: Remote smoking, quit in her 30s Second Hand Smoke Exposure: No Advance Directives: No Advance Directives Information Provided: No Do you have a plan to hurt others: No Plan Patient : No service: No Current occupational status: unemployed <[facility] - Last Filed: 10/17/24 05:58> Ebola Risk: Travel/Contact With Anyone From Affected Area/s: No <[facility] - Last Filed: 10/17/24 05:58> Has Patient Experienced Ebola Symptoms: No <Ghazal Bustillo [facility] - Last Filed: 10/17/24 05:58> Meds Allergies/Adverse reactions: Allergies Allergy/AdvReac Type Severity Reaction Status Date / Time apple [Apple] Allergy Unknown APPLE PEEL Verified 10/16/24 18:28 - ITCHY THROAT nut - unspecified [nut] Allergy Unknown ITCHY Verified 10/16/24 18:28 THROAT pineapple [Pineapple] Allergy Unknown ITCHY Verified 10/16/24 18:28 THROAT acetaminophen [From Percocet] Allergy Anxiety Verified 10/16/24 18:28 amoxicillin Allergy Itching Verified 10/16/24 18:28 oxycodone [From Percocet] Allergy Anxiety Verified 10/16/24 18:28 lim AdvReac Intermediate Swelling Verified 10/16/24 18:28 DUST Allergy Unknown EYES, NOSE Uncoded 10/16/24 18:28 ITCHY - ASTHMA GRASS Allergy Unknown ITCHY EYES Uncoded 10/16/24 18:28 - THROAT pet dander AdvReac Mild Itchy Eyes Uncoded 10/16/24 18:28 <[facility] Bustillo [facility] - Last Filed: 10/17/24 05:58> Active Medications: Current Medications Acetaminophen (Acetaminophen 325 Mg Tablet) 650 mg PO Q6H PRN PRN Reason: Pain, Mild 1-3,fever,headache Calcium Carbonate (Calcium Carbonate 750 Mg Tab.Chew) 750 mg PO Q4H PRN PRN Reason: Heartburn Heparin Sodium (Porcine) (Heparin Sodium,Porcine 5,000 Unit/Ml Vial) 2,400 unit 40 unit/kg (2400 unit) IVPUSH PROTOCOL BOLUS PRN; Protocol PRN Reason: 40 unit/kg - Heparin Protocol Heparin Sodium (Porcine) (Heparin Sodium,Porcine 5,000 Unit/Ml Vial) 4,700 unit 80 unit/kg (4700 unit) IVPUSH PROTOCOL BOLUS PRN; Protocol PRN Reason: 80 unit/kg - Heparin Protocol Heparin Sodium/Sodium Chloride (Heparin Sodium,Porcine/1/2ns) 25,000 unit in 250 mls @ 0 mls/hr IVCONT .Q0M [facility]; Protocol Last Admin: 10/17/24 04:44 Dose: 14 units/kg/hr, 8.3 mls/hr Magnesium Hydroxide (Milk Of Magnesia 30 Ml Oral.Susp) 30 ml PO DAILY PRN PRN Reason: Constipation Melatonin (Melatonin 3 Mg Tablet) 6 mg PO BEDTIME PRN PRN Reason: Insomnia Ondansetron HCl (Ondansetron Hcl 4 Mg/2 Ml Vial) 4 mg IVPUSH Q8H PRN PRN Reason: Nausea and Vomiting Senna (Sennosides 8.6 Mg Tablet) 17.2 mg PO BEDTIME [facility] Sodium Chloride (0.9 % Sodium Chloride Flush 3 Ml Syringe) 3 ml [facility]USH [facility] <Ghazal Bustillo, [facility]- - Last Filed: 10/17/24 05:58> Home medications: Home Medications ?Medication ?Instructions ?Recorded ?Confirmed ?Last Taken ?Type albuterol sulfate 90 mcg/actuation 2 puff inhalation Q4-6H PRN 08/12/22 05/12/23 3 Days Ago History aerosol inhaler (ProAir HFA) wheezing ~05/09/23 fluticasone propionate 50 1 spray intranasal DAILY PRN 08/12/22 05/12/23 08/11/22 09:00 History mcg/actuation nasal Allergy Symptoms spray,suspension aspirin 81 mg tablet,delayed 81 mg PO BEDTIME blood thinner 09/06/22 05/12/23 05/04/23 History release cilostazol 100 mg tablet 100 mg PO BEDTIME 09/06/22 05/12/23 Unknown History duloxetine 60 mg capsule,delayed 60 mg PO DAILY 09/06/22 05/12/23 Unknown History release ezetimibe 10 mg tablet 10 mg PO BEDTIME 09/06/22 05/12/23 Unknown History gabapentin 600 mg tablet 600 mg PO TID 09/06/22 05/12/23 Unknown History metformin 1,000 mg tablet 1,000 mg PO BIDWM 09/06/22 05/12/23 Unknown History omeprazole 20 mg capsule,delayed 20 mg PO BEDTIME PRN Heartburn 09/06/22 05/12/23 Unknown History release ranolazine 1,000 mg 1,000 mg PO BID 09/06/22 05/12/23 Unknown History tablet,extended release,12 hr semaglutide 1 mg/dose (2 mg/1.5 2 mg subcut SAEED 09/06/22 05/12/23 05/05/23 History mL) subcutaneous pen injector (Ozempic) diphenhydramine HCl 25 mg tablet 25 mg PO BEDTIME PRN Allergic 03/27/23 05/12/23 Unknown History Symptoms fexofenadine 180 mg tablet 180 mg PO BEDTIME PRN Allergy 03/27/23 05/12/23 Unknown History Symptoms insulin aspart U-100 100 unit/mL See Protocol subcut USEASDIRECTD 03/27/23 05/12/23 Unknown History (3 mL) subcutaneous pen (Novolog FlexPen U-100 Insulin aspart) insulin degludec 100 unit/mL 3 unit subcut DAILY PRN BS > 190 03/27/23 05/12/23 Unknown History subcutaneous solution (Tresiba U-100 Insulin) insulin degludec 100 unit/mL 25 unit subcut BEDTIME 03/27/23 05/12/23 Unknown History subcutaneous solution (Tresiba U-100 Insulin) rosuvastatin 40 mg tablet 40 mg PO DAILY 03/28/23 05/12/23 Unknown History amlodipine 2.5 mg tablet (Norvasc) 2.5 mg PO BEDTIME Hypertension 05/12/23 05/12/23 05/10/23 23:00 History fluticasone propionate 110 2 puff inhalation BID PRN 05/12/23 05/12/23 Unknown History mcg/actuation HFA aerosol inhaler Shortness Of Breath Or Wheezing (Flovent HFA) trazodone 50 mg tablet 100 mg PO BEDTIME insomnia 05/12/23 05/12/23 Unknown History <[facility] - Last Filed: 10/17/24 05:58> Physical Exam Vital Signs and Narrative: Vital Signs: Last Vital Signs Temp 96.9 F 10/17/24 02:38 Pulse 71 10/17/24 02:38 Resp 16 10/17/24 02:38 BP 173/75 H 10/17/24 02:38 Pulse Ox 99 10/17/24 02:38 O2 Del Method Room Air 10/17/24 02:38 BMI result Body Mass Index 24.7 <[facility] - Last Filed: 10/17/24 05:58> Alert and orientated X3, hx provided, due to fatigue, memory fair Neuro: CN II-X11 intact, no deficits, visual acuity intact EYES: PERRLA, EOM intact ENT: hearing intact, no issues with swallowing, uvula midline, lips moist, nares patent no epistaxis Cardiac: S1 S2 RRR, systolic murmur, no JVD, no edema in Lower ext Pulmonary: lungs clear to ausculation B Abdominal: BS active in all 4 quadrants, no guarding, tenderness, rebounding, no abdominal bruits heard on exam MSK: strength 5/5 upper and lower extremities : no CVA tenderness no bladder distension Extremities: no edema in lower extremities, PT and DP pulses not palbable, skin cold in B feet. Left femoral pulse bounding, R femoral pulse not felt on exam (per diagnostics, occulusion involved the left femoral stent) Psych: mood stable, judgement and insight good <[facility] - Last Filed: 10/17/24 05:58> Results Labs CBC and Chem 7: 10/17/24 04:00 10/16/24 19:18 <[facility] - Last Filed: 10/17/24 05:58> Labs: Laboratory Results - last 24 hr 10/16/24 10/17/24 10/17/24 19:18 04:00 04:00 MCV 77.2 L 76.9 L MCH 25.6 L 25.3 L MCHC 33.1 32.9 RDW 15.2 15.3 Plt Count 222 210 MPV 10.4 10.4 Immature Gran % (Auto) 0.2 Neut % (Auto) 64.5 Lymph % (Auto) 23.2 [place] % (Auto) 6.3 Eos % (Auto) 5.1 H Baso % (Auto) 0.7 Lymph # (Auto) 2.0 [place] # (Auto) 0.6 Eos # (Auto) 0.4 Baso # (Auto) 0.1 Abs Immat Gran (auto) 0.02 Absolute Neuts (auto) 5.6 Absolute Nucleated RBC 0.000 0.000 Nucleated RBC % (auto) 0.0 0.0 PT 12.0 11.0 INR 1.0 0.9 aPTT Heparin Protocol Cancelled 29.3 L D Anion Gap 12 Estim Creat Clear Calc 61.8 Estimated GFR > 60 Random Glucose 192 H Calcium 8.9 Magnesium 1.7 Total Bilirubin 0.3 AST 26 ALT 27 Alkaline Phosphatase 54 Total Creatine Kinase 229 H C-Reactive Protein < 0.10 Total Protein 6.8 Albumin 3.8 <[facility] - Last Filed: 10/17/24 05:58> ECG Attestation: I personally reviewed and interpreted this ECG as follows: (no ischemic changes , NSR) <[facility] - Last Filed: 10/17/24 05:58> ECG interpretation date: 10/17/24 <[facility] - Last Filed: 10/17/24 05:58> Prior ECG tracings: available for review <[facility] - Last Filed: 10/17/24 05:58> Imaging Radiologist's Impressions: Left shoulder Xray Findings: Osteopenia. No acute fracture or malalignment. Moderate osteoarthritic changes of the AC and glenohumeral joint. No erosions. No radiopaque foreign body. Calcific tendinitis along the supraspinatus. Median sternotomy wires and clips. IMPRESSION: 1. No acute findings Venous Duplex Findings: The visualized deep veins are fully compressible with normal Doppler color flow and spectral tracings. Stent noted in the left femoral artery, with questionable, age indeterminate occlusion in the proximal-mid segments. Stenoses throughout the visualized femoral and popliteal arteries. These findings may be further evaluated with lower extremity CTA if concern is present as well comparison with prior imaging. No popliteal cyst. IMPRESSION: Negative for left lower extremity deep vein thrombosis. Possible age-indeterminate occlusion of the visualized left femoral artery stent graft, please see above. <[facility] - Last Filed: 10/17/24 05:58> Assessment and Plan (1) Femoral artery occlusion, left: Status: Acute <[facility] - Last Filed: 10/17/24 05:58> Patient is a 63-year-old female with past medical history of CAD, CABG 2018, hypertension, hyperlipidemia, TIA, peripheral vascular disease, insulin-dependent diabetes type 2, hysterectomy, , neuropathy GERD sensitive with left lower leg pain and is being admitted with occlusion of left femoral stent. Patient has noted left shoulder pain, also chronic. Femoral stent occlusion with long history of vascular disease -Patient is started on heparin infusion -Vascular consult placed -Lower extremity CTA is pending -MED REC pending, unclear if pt has been on pletal -consider that patient may be a Plavix nonresponder, can check P2Y12 if needed - CCK , mildly elevated 229 (will hold statin) Left shoulder pain -osteoarthritic changes in the AC and glenohumeral joint noted along with calcific tendinitis along the supraspinatus. -Tylenol for pain -orthopedic consultation as an outpatient Hypertension -med rec pending resume antihypertensives once completed -low-sodium diet Hyperlipidemia -holding statin a CCK is mildly elevated -lipid panel pending Insulin-dependent diabetes type 2 -sliding scale insulin -diabetic diet Neuropathy -continue gabapentin renal fx stable DVT prophylaxis: Heparin infusion PPI prophylaxis: Omeprazole Med rec pending Patient is a full code <[facility] - Last Filed: 10/17/24 05:58> Patient is a 63-year-old female with past medical history of CAD, CABG 2018, hypertension, hyperlipidemia, TIA, peripheral vascular disease, insulin-dependent diabetes type 2, hysterectomy, , neuropathy GERD sensitive with left lower leg pain and is being admitted with occlusion of left femoral stent. Patient has noted left shoulder pain, also chronic. Femoral stent occlusion with long history of vascular disease -Patient is started on heparin infusion -Vascular consult placed -Lower extremity CTA is pending -MED REC pending, unclear if pt has been on pletal -consider that patient may be a Plavix nonresponder, can check P2Y12 if needed - CCK , mildly elevated 229 (will hold statin) Left shoulder pain -osteoarthritic changes in the AC and glenohumeral joint noted along with calcific tendinitis along the supraspinatus. -Tylenol for pain -orthopedic consultation as an outpatient Hypertension -med rec pending resume antihypertensives once completed -low-sodium diet Hyperlipidemia -holding statin a CCK is mildly elevated -lipid panel pending Insulin-dependent diabetes type 2 -sliding scale insulin -diabetic diet Neuropathy -continue gabapentin renal fx stable DVT prophylaxis: Heparin infusion PPI prophylaxis: Omeprazole Med rec pending Patient is a full code Admit as inpatient and will require two night minimum hospital stay for IV heparin (as above), which is not possible in a lesser acute setting. Vascular surgery consult pending <Roxanna Peters MD - Last Filed: 10/17/24 06:04> Quality Stroke Does the patient have a stroke diagnosis?: No <[facility] - Last Filed: 10/17/24 05:58> Reason for No Anti-thrombotic by Day Two: N/A - Med Ordered <[facility] - Last Filed: 10/17/24 05:58> VTE Prior VTE?: No [facility] - Last Filed: 10/17/24 05:58> VTE Risk Level:: Medical - moderate - high [facility] - Last Filed: 10/17/24 05:58> VTE Device Contraindication: N/A - Device Ordered <[facility] - Last Filed: 10/17/24 05:58> VTE Drug Contraindication: N/A - Med Ordered <[facility] - Last Filed: 10/17/24 05:58>
[2024-10-17 05:43] VITALS: BP 180/72; PULSE 71; RESP 17; TEMP 35.8; O2SAT 98; BMI 25.5
[2024-10-17] MEDS: Metoprolol Tartrate 50 MG TABLET PO (06:39)
[2024-10-17] MEDS: Omeprazole 20 MG CAPSULE.DR PO (06:40)
[2024-10-17] MEDS: amLODIPine Besylate 2.5 MG TABLET PO (06:40)
--- NOTE | 2024-10-17 06:43 | PC.NURSE ---
Patient arrived to Room 468, heparin drip running at 14 units/kr/hr. Patient alert and oriented x4, no complaints of pain of discomfort at this time. Blood pressure elevated 180/72, hr 71. Dr. Peters notified. Orders for lopressor and norvasc.
[2024-10-17 07:19] VITALS: BP 168/82; PULSE 65; RESP 16; TEMP 36.6; O2SAT 97
[2024-10-17 07:34] LABS: Glucose, Whole Blood 121 mg/dL (60-115)
[2024-10-17 08:10] LABS: MANUAL DIFF FLAG NO
[2024-10-17 08:15] LABS: Basophils Percent Auto 0.5 % (0-2); Eosinophils Absolute Auto 0.6 X10*3/uL (0.0-0.4); Eosinophils Percent Auto 7.5 % (0-4); Hemoglobin 10.9 g/dl (12.0-16.0); Imm Gran Abs Auto 0.02 X10*3/uL (0.00-0.03); Imm Gran Pct Auto 0.3 % (0.0-0.4); Lymphocytes Absolute Auto 3.1 X10*3/uL (1.2-4.9); Lymphocytes Percent Auto 41.1 % (20-40); Mean Corpuscular HGB Conc 32.1 g/dl (31.0-35.0); Mean Corpuscular Hemoglobin 24.9 pg (27.0-33.0); Mean Corpuscular Volume 77.8 fL (80.0-98.0); Mean Platelet Volume 11.3 fL (9.4-12.3); Monocytes Absolute Auto 0.5 X10*3/uL (0.1-1.2); Neutrophils Absolute Auto 3.3 x10*3/uL (2.0-8.3); Neutrophils Percent Auto 43.6 % (45-73); Platelet Count 232 X10*3/uL (160-400); Red Blood Count 4.37 X10*6/uL (4.20-5.50); Red Cell Distribution Width 15.1 % (11.0-16.0); White Blood Count 7.5 X10*3/uL (4.8-10.8)
[2024-10-17 08:43] LABS: Alanine Aminotransferase 22 U/L (0-31); Albumin Level 3.8 g/dL (3.5-5.0); Alkaline Phosphatase 55 U/L (39-117); Anion Gap 13 (12-20); Aspartate Amino Transferase 29 U/L (5-31); Bilirubin Total 0.3 mg/dL (0.0-1.0); Blood Urea Nitrogen 7 mg/dL (9-16); Carbon Dioxide 27 mmol/L (22-29); Chloride 106 mmol/L (96-108); Creatinine Clr Calc Pharmacy 67.2; Estimated Glomerular Filt Rate > 60; Glucose Random 117 mg/dL (60-115); Potassium 4.3 mmol/L (3.3-5.1); Sodium 142 mmol/L (135-145); Total Protein 6.8 g/dL (6.5-8.0)
--- NOTE | 2024-10-17 09:01 | MHC.CM.PN ---
CM met with Patient at bedside and addressed IMM with her (original was given to Patient and a copy has been placed on the chart). Patient lives with her Brother/Leonardo, in a first floor apartment and he will transport Patient home at time of dc. Home/self care is Patient's goal (No PCP/PCP brochure to be provided) and CM has initiated and will follow for dc planning.
[2024-10-17 10:57] LABS: Glucose, Whole Blood 193 mg/dL (60-115)
[2024-10-17 11:02] VITALS: BP 138/68; PULSE 67; RESP 16; TEMP 36.2; O2SAT 98
--- NOTE | 2024-10-17 11:08 | PHA.MEDREC ---
Addendum entered by Dahiana Avila RPh 10/17/24 11:22: REVIEWED BY [facility] Original Note: Pharmacy Consult ? Medication Reconciliation Pharmacy has completed the medication reconciliation. Spoke to pt to confirm meds. Pt was ablle to confirm some meds, but is poor historian. Cofnirmed w/ pt that current pharmacy is [employer] [facility]. Called [facility] (former pharmacy in [place] - [phone]) to confirm meds. Pharmacies were only able to confirm clopidogrel, ergocalciferol, ezetimibe, metoprolol, ranolazine, rosuvastatin, duloxetine, and ozempic. Pt however attested to taking aspirin, benadryl PRN, flonase, gabapentin (PDMP verified), Novolog, Tresiba, metformin, and omeprazole. Of note, pt unsure of dosage of Tresiba, so leaving unconfirmed for now.
[2024-10-17] MEDS: Insulin Lispro 100 UNIT/ML 3 ML VIAL SUBCUT (11:14)
--- NOTE | 2024-10-17 12:22 | PM.DS ---
DS: Providers Provider Date of Service: 10/17/24 Date of admission: 10/17/24 04:03 Date of discharge: 10/17/24 Primary care physician: None Physician Consults: 10/17/24 06:03 Consult to Vascular Surgery [place]ine [place] [facility] [place] Reason for consultation: femoral stent occlusion Attending physician on discharge: Lina Harrell Discharging clinician: Chantell Salazar DS: Diagnosis Discharge Diagnosis (1) Femoral artery occlusion, left: Status: Acute DS: Summary Hospital Course Hospital Course: From H&P on the day of admission Patient is a 63-year-old female with past medical history of CAD, CABG 2018, hypertension, hyperlipidemia, TIA, peripheral vascular disease, insulin-dependent diabetes type 2, hysterectomy, , neuropathy GERD reports in the emergency department after months of increasing left leg pain which is now continuous and throbbing with no relief regarding position. Patient also reports chronic left shoulder pain that radiates down to the hand. Patient states both her hands and feet are always cold. Patient states she believes she has a blood clot in her left leg. Imaging indicates age indeterminate occlusion of the visualized left femoral artery stent graft. Doppler negative for DVT. Patient currently does have a bounding left femoral pulse but right femoral pulse very difficult to locate. Skin in the femoral area is warm, , no swelling. Patient has been taking aspirin and Plavix for over a year now. Patient has not been told that she may be a Plavix nonresponder. Patient moved to [place] approximately 45 days prior and currently does not have any primary care provider. Patient had not seen a vascular doctor for some time down in [place] and has learned to live with her symptoms but is now concerned. X-ray done of the left shoulder, moderate osteoarthritic changes in the AC and glenohumeral joint. No erosions or foreign bodies found. Patient also has a calcific tendinitis along the supraspinatus. Median sternotomy wires and clips are in place. Patient currently denies any chest pain, shortness of breath at rest or with exertion, , nausea , vomiting abdominal pain, headaches or visual changes. Patient states the pain in her left leg is now again consistent, throbbing, burning with no relief. Bilateral feet are cold to the touch unable to appreciate dorsalis pedis or posterior tibialis pulses. No open wounds found. Patient was a previous smoker who quit in her 20s. Patient uses alcohol only on occasion. No history of marijuana or illicit drugs. Patient has multiple allergies that are accurately listed Femoral stent occlusion with long history of vascular disease Images compared to those from [facility] and vascular surgery notes from [facility] reviewed. peripheral and central thrombosis of superficial femoral artery noted from studies in 2021. Per vascular surgery notes no palpable pulses in the left leg at that time. Notes indicate history of claudication symptoms. Imaging reports and findings discussed with vascular surgery. Okay to stop heparin drip. Patient able to ambulate with steady gait. Recommend to continue Plavix, aspirin. Patient will be seen in the office by vascular surgery this week. For left shoulder pain. Imaging showing osteoarthritic changes in the AC and glenohumeral joint along with calcific tendinitis along the supraspinatus. Recommend outpatient orthopedic consultation No changes were made to baseline medications. Per pharmacy some inconsistencies noted in claim history indicating possible medication noncompliance Time Attestation Discharge Coordination Time (in mins): 35 Quality: Safe Use of Opioids Does Pt have an Active Cancer Diagnosis on the Problem List?: No Quality: Stroke Does the patient have a stroke diagnosis?: No Physical Exam Vital Signs: Vital Signs: Last Vital Signs Temp 97.2 F 10/17/24 11:02 Pulse 67 10/17/24 11:02 Resp 16 10/17/24 11:02 BP 138/68 10/17/24 11:02 Pulse Ox 98 10/17/24 11:02 O2 Del Method Room Air 10/17/24 11:02 BMI result Body Mass Index 25.5 Const: General: cooperative, comfortable, no acute distress, alert and awake Nutritional Appearance: average body habitus Orientation/consciousness: patient oriented x3 Resp: Effort & Inspection: normal respiratory effort, able to speak in complete sentences, no respiratory distress and no use of accessory muscles Auscultation: clear to auscultation bilaterally Cardio: Rate: regular rate Skin: Other: warm and dry Neuro: General: patient oriented x3, moves all extremities and CN's II-XI intact bilaterally Extrem: Other: non-palpable DP, PT pulses on left (chronic per notes from [facility]); b/l feet slightly cool (chronic per pt), symmetrical, sensation intact. no open wounds DS: Data Data Completed and Pending Labs on day of discharge: Laboratory Results - last 24 hr 10/16/24 10/17/24 10/17/24 19:18 04:00 04:00 WBC 8.7 7.3 RBC 4.26 3.99 L Hgb 10.9 L 10.1 L Hct 32.9 L 30.7 L MCV 77.2 L 76.9 L MCH 25.6 L 25.3 L MCHC 33.1 32.9 RDW 15.2 15.3 Plt Count 222 210 MPV 10.4 10.4 Immature Gran % (Auto) 0.2 Neut % (Auto) 64.5 Lymph % (Auto) 23.2 Knott % (Auto) 6.3 Eos % (Auto) 5.1 H Baso % (Auto) 0.7 Lymph # (Auto) 2.0 Knott # (Auto) 0.6 Eos # (Auto) 0.4 Baso # (Auto) 0.1 Abs Immat Gran (auto) 0.02 Absolute Neuts (auto) 5.6 Absolute Nucleated RBC 0.000 0.000 Nucleated RBC % (auto) 0.0 0.0 PT 12.0 11.0 INR 1.0 0.9 aPTT Heparin Protocol Cancelled 29.3 L D Sodium 141 Potassium 4.1 D Chloride 106 Carbon Dioxide 27 Anion Gap 12 BUN 8 L Creatinine 0.77 Estim Creat Clear Calc 61.8 Estimated GFR > 60 POC Glucose Random Glucose 192 H Calcium 8.9 Magnesium 1.7 Total Bilirubin 0.3 AST 26 ALT 27 Alkaline Phosphatase 54 Total Creatine Kinase 229 H C-Reactive Protein < 0.10 Total Protein 6.8 Albumin 3.8 10/17/24 10/17/24 10/17/24 07:21 07:44 10:45 WBC 7.5 RBC 4.37 Hgb 10.9 L Hct 34.0 L MCV 77.8 L MCH 24.9 L MCHC 32.1 RDW 15.1 Plt Count 232 MPV 11.3 Immature Gran % (Auto) 0.3 Neut % (Auto) 43.6 L Lymph % (Auto) 41.1 H Knott % (Auto) 7.0 Eos % (Auto) 7.5 H Baso % (Auto) 0.5 Lymph # (Auto) 3.1 Knott # (Auto) 0.5 Eos # (Auto) 0.6 H Baso # (Auto) 0.0 Abs Immat Gran (auto) 0.02 Absolute Neuts (auto) 3.3 Absolute Nucleated RBC 0.000 Nucleated RBC % (auto) 0.0 PT INR aPTT Heparin Protocol 123.0 H* D Sodium 142 Potassium 4.3 Chloride 106 Carbon Dioxide 27 Anion Gap 13 BUN 7 L Creatinine 0.72 Estim Creat Clear Calc 67.2 Estimated GFR > 60 POC Glucose 121 H Random Glucose 117 H Calcium 9.0 Magnesium Total Bilirubin 0.3 AST 29 ALT 22 Alkaline Phosphatase 55 Total Creatine Kinase C-Reactive Protein Total Protein 6.8 Albumin 3.8 10/17/24 10:53 WBC RBC Hgb Hct MCV MCH MCHC RDW Plt Count MPV Immature Gran % (Auto) Neut % (Auto) Lymph % (Auto) Knott % (Auto) Eos % (Auto) Baso % (Auto) Lymph # (Auto) Knott # (Auto) Eos # (Auto) Baso # (Auto) Abs Immat Gran (auto) Absolute Neuts (auto) Absolute Nucleated RBC Nucleated RBC % (auto) PT INR aPTT Heparin Protocol Sodium Potassium Chloride Carbon Dioxide Anion Gap BUN Creatinine Estim Creat Clear Calc Estimated GFR POC Glucose 193 H Random Glucose Calcium Magnesium Total Bilirubin AST ALT Alkaline Phosphatase Total Creatine Kinase C-Reactive Protein Total Protein Albumin Discharge Plan Discharge Anticipated Discharge Date/Time: 10/17/24 12:42 Patient Disposition: Home, Self-Care Discharge Diagnosis: PAD calcific tendonitis of left shoulder Referrals: Jack Chan MD [Physician] - 1 Week Rudi Dimas PA-C [Physician Production Maintenance Technician] - 1 Week (left shoulder pain, calcific tendonitis) Physician,Andrey [Primary Care Provider] - 1 Week Discharge Medications: Continued fluticasone propionate 50 mcg/actuation spray,suspension 1 spray intranasal DAILY PRN (Reason: Allergy Symptoms) aspirin 81 mg tablet,delayed release (DR/EC) 81 mg PO BEDTIME duloxetine 60 mg capsule,delayed release(DR/EC) 60 mg PO DAILY Rx Instructions: w/ 30 mg ezetimibe 10 mg tablet 10 mg PO BEDTIME gabapentin 600 mg tablet 600 mg PO TID metformin 1,000 mg tablet 1,000 mg PO BIDWM omeprazole 20 mg capsule,delayed release(DR/EC) 20 mg PO DAILY@0630 ranolazine 1,000 mg tablet extended release 12 hr 1,000 mg PO BID clopidogrel 75 mg Tablet 75 mg PO DAILY Qty: 30 0RF ergocalciferol (vitamin D2) 1,250 mcg (50,000 unit) capsule 1,250 mcg PO TU@0900 Ozempic 2 mg/dose (8 mg/3 mL) pen injector 2 mg subcut MO@0900 metoprolol succinate 100 mg tablet extended release 24 hr 100 mg PO BEDTIME duloxetine 30 mg Capsule,Delayed Release(Dr/Ec) 30 mg PO DAILY Rx Instructions: w/ 60 mg insulin degludec [Tresiba U-100 Insulin] 100 unit/mL solution 25 unit subcut BEDTIME diphenhydramine HCl 25 mg Tablet 25 mg PO BEDTIME PRN (Reason: Allergic Symptoms) insulin aspart U-100 [Novolog FlexPen U-100 Insulin] 100 unit/mL (3 mL) Insulin Pen See Protocol SUBCUT USEASDIRECTD Protocol: Insulin Correction Scale Less than or equal to 110 ---- Give (units): 0 111 to 150 Give (units): 0 151 to 200 Give (units): 2 201 to 250 Give (units): 4 251 to 300 Give (units): 6 301 to 350 Give (units): 8 Greater than 350 Give (units): 10 Call MD if Blood Glucose > : 350 rosuvastatin 40 mg tablet 40 mg PO DAILY Discharge Orders: Discharge Order (Routine); Ordered 10/17/24 Ordered By: Chantell Salazar Activity on Discharge: As tolerated Stand Alone Forms: Patient Portal Discharge page Print Language: Hungarian Care Plan Goals: see below Health Concerns: peripheral arterial disease with multiple stents with stent occlusion calcific tendonitis left shoulder Plan of Treatment: continue aspirin, plavix and statin as prescribed for peripheral arterial disease follow up in the office with vascular surgery this coming week - Dr. Chan (phone number above) call on Sina to ensure you have an appointment scheduled call to schedule appointment with orthopedic surgery for follow up for your left shoulder recommend good blood sugar control Assessment: See discharge summary
[2024-10-17] MEDS: Gabapentin 600 MG TABLET PO (12:39)
--- NOTE | 2024-10-17 12:54 | MHC.CM.PN ---
Patient has been medically cleared for dc to home today, self care.
== END 2024-10-17 15:22 | disposition home or self-care (01) | DRG 315 ==
LOC: HO.ED 10-17 04:01 → HO.EDOVER 10-17 04:06 → HO.IMC 10-17 04:15
PROVIDERS: Nurse Practitioner Family; Physician Assistant Medical; Admitting Provider Student in an Organized Health Care Education/Training Program; Emergency Provider Emergency Medicine; Visit Provider Physician Assistant Medical
DX: T82.598A Other mechanical complication of other cardiac and vascular devices and implants, initial encounter (principal); I25.110 Atherosclerotic heart disease of native coronary artery with unstable angina pectoris; M75.32 Calcific tendinitis of left shoulder; E11.40 Type 2 diabetes mellitus with diabetic neuropathy, unspecified; Y71.8 Miscellaneous cardiovascular devices associated with adverse incidents, not elsewhere classified; E11.51 Type 2 diabetes mellitus with diabetic peripheral angiopathy without gangrene; I70.222 Atherosclerosis of native arteries of extremities with rest pain, left leg; Z87.891 Personal history of nicotine dependence; Z95.5 Presence of coronary angioplasty implant and graft; Z79.4 Long term (current) use of insulin; Z79.02 Long term (current) use of antithrombotics/antiplatelets; Z79.84 Long term (current) use of oral hypoglycemic drugs; Z79.899 Other long term (current) drug therapy
CPT/HCPCS: 36415; 73030; 73706; 80053; 82550; 82947; 83735; 85025; 85027; 85610; 85730; 86140; 93971; 99285; J1644; Q9967

== ENCOUNTER → 2024-10-17 00:37 | Outpatient (BNV) | payer MEDICARE, MEDICAID, SELFPAY | PROVIDERS: Emergency Provider Emergency Medicine; Visit Provider Radiology Diagnostic Radiology | DX: I70.202 Unspecified atherosclerosis of native arteries of extremities, left leg (principal); M25.512 Pain in left shoulder | CPT/HCPCS: 73030; 73706; 93971 ==

== ENCOUNTER → 2024-10-17 04:03 | Outpatient (BNV) | payer MEDICARE, MEDICAID, SELFPAY | PROVIDERS: Admitting Provider Student in an Organized Health Care Education/Training Program; Emergency Provider Emergency Medicine; Visit Provider Nurse Practitioner Family | DX: I70.202 Unspecified atherosclerosis of native arteries of extremities, left leg (principal) | CPT/HCPCS: 99223; 99499 ==

== ENCOUNTER 2024-10-20 10:48 | Outpatient (AMB) | payer MEDICARE, MEDICAID, SELFPAY ==
[2024-10-20 10:50] VITALS: BP 132/60; BMI 24.6
--- NOTE | 2024-10-20 10:50 | A.OFFVIS_ITS ---
Vital Signs 10/20/24 10:50 Height 5 ft 1 in Weight 130 lb BMI 24.6 BP 132/60 Blood Pressure Location Rt brachial Position Sitting Intake Visit Reasons: follow up s/p CTA Left LE 10/17/24 Intake Note: Pt presents to the office today for a follow up s/p CTA left LE 10/17/24. Pt states she has pain all over her left leg but states this morning was the worst. Allergies apple [Apple] Allergy (Unknown, Verified 10/20/24 10:51) APPLE PEEL - ITCHY THROAT nut - unspecified [nut] Allergy (Unknown, Verified 10/20/24 10:51) ITCHY THROAT pineapple [Pineapple] Allergy (Unknown, Verified 10/20/24 10:51) ITCHY THROAT acetaminophen [From Percocet] Allergy (Verified 10/20/24 10:51) Anxiety amoxicillin Allergy (Verified 10/20/24 10:51) Itching oxycodone [From Percocet] Allergy (Verified 10/20/24 10:51) Anxiety lim Adverse Reaction (Intermediate, Verified 10/20/24 10:51) Swelling DUST Allergy (Unknown, Uncoded 10/20/24 10:51) EYES, NOSE ITCHY - ASTHMA GRASS Allergy (Unknown, Uncoded 10/20/24 10:51) ITCHY EYES - THROAT pet dander Adverse Reaction (Mild, Uncoded 10/20/24 10:51) Itchy Eyes HPI HPI follow up s/p CTA Left LE 10/17/24: Details: The patient is a 63-year-old female presenting with severe left lower extremity pain. The patient recounts having a history of extensive peripheral arterial disease management, including a vascular intervention performed on her left leg approximately 6-7 months prior in [place]. Despite initial relief post- procedure, her symptoms have recurred, characterized by acute pain that impedes her ability to walk, necessitating the use of a mobility aid in public settings like shops. Her medical history is significant for coronary artery disease, with prior interventions including open heart surgery at [facility] in 2019 and concurrent left leg and cardiac angioplasty conducted approximately six months ago, which initially alleviated her symptoms. Despite these measures, her condition has deteriorated, manifesting as recurring and progressive vascular symptoms which have been a pattern in her treatment course necessitating six-monthly interventions when she resided in [place]. She has not yet re-established cardiology care following her relocation, though she continues to express concerns about the frequent interventions and their perceived effectiveness and comfort, based on previous experiences. She presented to the emergency room and subsequently underwent CT angiogram. She now presents to us for follow-up. Of note she is being maintained on aspirin Plavix and a statin. She reports that she can barely walk a few 100 ft. Also of note she is a longstanding diabetic since the age of 30 and is a nonsmoker. FORMERLY [facility], [facility] Medical History Dizziness Orthostatic hypotension Stenosis of left vertebral artery CVA (cerebral vascular accident) Peripheral vascular disease Neuropathy Coronary artery disease Brain TIA Hypertension Diabetes Surgical History History of angioplasty of peripheral vessel Status post aorto-coronary artery bypass graft Family History Father Coronary artery disease involving coronary bypass graft Mother No problems noted. Social History Household Members: Family Household Members Other:: lives with brother Housing: Apartment Do you presently have visiting nurse or other home services: No Alcohol intake: never Patient Tobacco Use Status: Former Tobacco user Years Smoked: Remote smoking, quit in her 30s Second Hand Smoke Exposure: No service: No Current occupational status: unemployed Review of Systems Const All systems reviewed & are unremarkable except as noted in HPI and below Reports no additional complaints ENT Reports Normal hearing present Card Denies chest pain, Denies chest pain at rest, Denies chest pain with activity and Denies pedal edema Resp Denies cough GI Denies abdominal pain Musc Denies abnormal gait, Denies muscle cramps and Denies radiating pain into limb Skin/Breast Denies skin ulcer and Denies wounds Neuro Reports Normal hearing present and Denies abnormal gait Psych Reports no additional complaints Physical Exam Vital Signs: Last Vital Signs BP 132/60 10/20/24 10:50 BMI result Body Mass Index 24.6 Const General: cooperative, healthy appearing and comfortable Orientation/consciousness: oriented to person, oriented to place and oriented to time HEENT Head: Yes normal to inspection Neck Neck: Yes normal visual inspection Carotids: no bruits Chest Chest palpation & inspection: normal inspection of the chest Resp Effort & Inspection: normal respiratory effort and able to speak in complete sentences Auscultation: clear to auscultation bilaterally, no crackles, no rales, no rhonchi and no wheezes Cardio Other: Bilateral DP signals Rate: regular rate Rhythm: regular rhythm Heart sounds: S1 normal heart sound present and S2 normal heart sound present Bruits: no carotid bruits Peripheral pulses: Peripheral pulses 2+ throughout GI Inspection: Yes normal to inspection Skin Wounds: no wounds Hair: normal Neuro General: oriented to person, oriented to place and oriented to time Cranial nerves: Yes CN's II-XII intact bilaterally and Yes Normal hearing present Cognition (Neuro): normal cognition Motor exam (neuro): 5/5 motor strength present throughout Extrem Other: venous exam: No significant superficial varicosities or spider telangiectasias, minimal edema General: No clubbing, No cyanosis and No edema Psych Appearance: grossly normal Mental Status: mental status grossly normal Speech and movement: Normal speech and movement present Results Reviewed Results Reviewed: CT angiogram results reviewed demonstrates left leg occluded stent. Assessment & Plan Assessment & Plan (1) Peripheral vascular disease: Comment: April 2024 - left lower extremity intervention in [place]. Multiple prior interventions. Code(s): I73.9 - Peripheral vascular disease, unspecified Category: Medical Plan: In short patient has significant peripheral vascular disease. The concern here is that she has had multiple left lower extremity interventions. On CT angiogram I do not even see a target a runoff for this poor unfortunate patient. I have taken the liberty of ordering noninvasive testing and she will follow up after that. This may give us a little more insight prior to any other surgical procedures. Thank you for allowing us to assist in her care. If there are any questions or concerns please do not hesitate to contact us. Orders: Orders US arterial duplex LE BI 1 Week I73.9 - Peripheral vascular disease, unspecified Coding Level of Care Code Est Pt Level 4 (08000) Diagnoses Peripheral vascular disease I73.9
--- OUTSIDE RECORDS SUMMARY | 2024-10-20 12:28 | XMS_ITS ---
Author Organization [facility] Address [address] [place] [address] Care Team Providers Care Equity Research Associate Name Role Phone Maria R Sarmiento Primary Care Provider Unavailab Willian Warren Unavailable [phone] REASON FOR VISIT No Show Encounters Encounter Location Date Provider Diagnosis [address] [address] 07/11/2023 Willian Denney Plan Of Treatment No Information Progress Notes * Vee PARISIDOB:[birth year] (62 yo F)Acc No.[id number]:07/11/2023 Patient:?Pauline Parisiarita :1960???Age:62 Y???Sex:Female Address[address] [place], [address] * true * Date:? Generated for Printi cheryl/Manjit/eTransmitting on:?10/20/2024 12:28 PM EDT
--- OUTSIDE RECORDS SUMMARY | 2024-10-20 12:28 | XMS_ITS ---
Author Organization [facility] Address [address] [place] [address] Care Team Providers Care Kiln Charger Name Role Phone Maria R Sarmiento Primary Care Provider Unavailab Willian Warren Unavailable [phone] REASON FOR VISIT No Show Encounters Encounter Location Date Provider Diagnosis [facility] [address] [place] [address] 05/13/2023 Willian Denney Plan Of Treatment No Information Progress Notes * Vee PARISIDOB:[birth year] (62 yo F)Acc No.[id number]:05/13/2023 Patient:?Vee Parisi :1960???Age:62 Y???Sex:Female Address[address] [place], [address] * true * Date:? Generated for Printi cheryl/Manjit/eTransmitting on:?10/20/2024 12:28 PM EDT
--- OUTSIDE RECORDS SUMMARY | 2024-10-20 12:28 | XMS_ITS | Encounter Summary ---
Author Organization [facility] Address [address] [place] [address] Care Team Providers Care Climbing Guide Name Role Phone Unavailable Primary Care Provider Unavailabl e Encounter Details Date Type Department Care Team (Latest Contact Info) Description 08/18/2021 Abstract C CONVERSIONS Dental, Provider, DDS Social History Tobacco Use Types Packs/Day Years Used Date Smoking Tobacco: Never Assessed Comments Unknown Sex and Gender Information Value Date Recorded Sex Assigned at Female 04/16/2022 10:17 AM EDT Legal Sex Female 10:17 AM EDT Gender Identity Female 04/16/2022 10:17 AM EDT Sexual Orientation Straight 04/16/2022 10 :17 AM EDT documented as of this encounter Plan of Treatment Not on file documented as of this encounter Visit Diagnoses Not on filedocumented in this encounter
--- OUTSIDE RECORDS SUMMARY | 2024-10-20 12:28 | XMS_ITS | Patient Health Record ---
[facility] Address [address] [facility] [place] [address] Care Team Providers Care Band Sawing Machine Operator Name Role Phone Torsten Maria R Primary Care Provider Unavailab Willian Warren Unavailable [phone] Allergies Allergen (clinical drug ingredient) Drug/Non Drug Allergy documented on EMR Reaction Allergy Type Onset Date Status acetaminophen / oxycodone Percocet itching, anxiety, nervous Drug Allergy Active amoxicillin Amoxicillin itching, rash Drug Allergy Active Reason For Referral No Information Medications Medication SIG (Take, Route, Frequency, Duration) Notes Start Date End Date Status Ozempic Active Gabapentin Active Xarelto Active Tresiba 10 units Active Metoprolol Succinate Active metFORMIN HCl Active Extra Depth Orthopedic Shoes, (1) Pair With (3) Pair Custom Heat Molded Multidensity Innersoles Dx: NIDDM/PVD(E11.51), Hammertoe Foot Deformity(M20.41,M20.42), Preulcerative Skin Lesion(s)(L85.1) Wear Daily for 365 days Active Lisinopril Active DULoxetine HCl Activ e NovoLOG Active Ezetimibe Active Rosuvastatin Calcium Active Social History Tobacco Use: Social History Observation Description Date Details (start date - stop date) Former Smoker NA - NA Tobacco Use/Smoking Question Answer Notes Are you a: former smoker Alcohol Screen Question Answer Notes Did you have a drink contain ing alcohol in the past year? Yes How often did you have a dri nk containing alcohol in the past year? Monthly or less (1 point) Points 1 Interpretation Negative Tobacco use other than smoking: Question Answer Notes Are you an other tobacco user? No Problems Problem Type SNOMED Code ICD Code Onset Dates Problem Status W/U Status Risk Notes Problem Acquired hammer toe of right foot (69254736346760 05) Other hammer toe(s) (acquired), right foot (M20.41) Active confirmed Problem Type 2 diabetes mellitus with peripheral angiopathy (593794855) Type 2 diabetes mellitus with diabetic peripheral angiopathy without gangrene (E11.51) Active confirmed Problem Acquired hammer toe of left foot (41110653510066 03) Other hammer toe(s) (acquired), left foot (M20.42) Active confirmed Plan Of Treatment Pending Test Test Name Order Date [id number] NAIL, 6 OR MORE 11/26/2022 [id number] NAIL, 6 OR MORE 02/25/2023 [id number] Plate 02/25/2023 [id number] Plate 11/26/2022 [id number] SKIN LESIONS, 2 TO 4 11/27/19 [id number] SKIN LESIONS, 2 TO 4 02/26/20 Insurance Providers Payer Name Payer Address Payer Phone Subscriber Number Group Number Insured Name Patient Relationship to Insured Coverage Start Date Coverage End Date [facility] 65 Medicare Preferred [address] [place] [address] [phone] [id number] Vee Parisi Self - patient is the insured Medical (General) History Medical History History ICD Code Anemia Angina Anxiety Arthritis asthma Back,Hip,and Knee pain Broken bones CAD (Cholesterol) Depression Diabetic Fibromyalgia Headaches/Migraines Heart disease High blood pressure Numbness Poor circulation Stroke Chicken pox Vascular grafts Memory loss trouble sleeping fatty liver Surgical History Surgery Date(Month/Year) open heart surgery 2009 hernia breast reduction Hand Surgery tooth Hospitalization History Reason Date(Month/Year) [facility] [place]- fainted 10/2022
--- OUTSIDE RECORDS SUMMARY | 2024-10-20 12:28 | XMS_ITS | Clinical Summary ---
Author Organization [employer] Address [address] [place] [address] [address] [place] [address] Care Team Providers Care External Relations Manager Name Role Phone Unavailable Primary Care Provider Unavailabl e Social History Tobacco Use Types Packs/Day Years Used Date Smoking Tobacco: Never Assessed Comments Unknown Sex and Gender Information Value Date Recorded Sex Assigned at Female 04/16/2022 10:17 AM EDT Legal Sex Female 10:17 AM EDT Gender Identity Female 04/16/2022 10:17 AM EDT Sexual Orientation Straight 04/16/2022 10 :17 AM EDT Plan of Treatment Health Maintenance Due Date Last Done Comments CT Colonography 1960 Colonoscopy 1960 Colorectal Cancer Screening 1960 Depression Screening 1960 FIT DNA/Cologuard 1960 FIT 1960 FOBT 1960 Sigmoidoscopy 1960 Alcohol/Substance Use Screening 1972 Tobacco Screening 1972 DTaP/Tdap/Td Vaccines (1 - Tdap) 11/14/1979 Pap Smear 1981 Cervical Cancer Screening 1990 HPV/Cotest 1990 Mammogram 2000 Pneumococcal Vaccine: 50+ Ye ars (1 of 1 - PCV) 2010 Zoster Vaccines (1 of 2) 2010 COVID-19 Vaccine ( - 2023-2 5 season) 2024 Influenza Vaccine (#1) 2024 RSV Patients and Pa tients Aged 60 years or older (1 - 1-dose 75+ series) 11/14/2035 HIB Vaccines Aged Out No longer eligi ble based on patient's age to complete this topic HPV Vaccines Aged Out No longer eligi ble based on patient's age to complete this topic Hepatitis A Vaccines Aged Out No long er eligible based on patient's age to complete this topic Hepatitis B Vaccines Aged Out No long er eligible based on patient's age to complete this topic IPV Vaccines Aged Out No longer eligi ble based on patient's age to complete this topic Meningococcal Vaccine Aged Out No ellis meche eligible based on patient's age to complete this topic Pneumococcal Vaccine: Pediat rics (0 to 5 Years) and At-Risk Patients (6 to 49) Years) Aged Out No longer eligible b ased on patient's age to complete this topic RSV under 20 months Aged Out No longe r eligible based on patient's age to complete this topic Rotavirus Vaccines Aged Out No longer eligible based on patient's age to complete this topic
--- OUTSIDE RECORDS SUMMARY | 2024-10-20 12:28 | XMS_ITS ---
Author Organization [facility] Address [address] [facility] [place] [address] Care Team Providers Care Production Roustabout Name Role Phone Maria R Sarmiento Primary Care Provider Unavailab Willian Warren Unavailable [phone] Encounters Encounter Location Date Provider [facility] [address] [place] [id number] 07/11/2023 Willian Denney Plan Of Treatment No Information Progress Notes * ISAKV[birth year]DOB:[birth year] (63 yo F)Acc No.[id number]:07/11/2023 Progress Note Patient:Vee SALMERON Provider:?Willian Denney DPM :1960???Age:62 Y???Sex:Female D ate:07/11/2023 Address: [id number] Pcp:Maria R Sarmiento Subjective: * Chief Complaints: * ??? * Medical History:? Objective: * Vitals:? Assessment: Plan: * Treatment: * Images: * The named appointment provid er may or may not be the originator of this progress note, and it is not deemed complete until electronically signed by the appointment provider. Sign off status: Pending * Provider:?Willian Denney DPM Date:?2023 Generated for Gaurav luna/Manjit/Coreysmitting on:?10/20/2024 12:28 PM EDT
== END 2024-10-20 11:15 | disposition home or self-care (01) ==
LOC: HO.HVS 10:49
PROVIDERS: Visit Provider Surgery Vascular Surgery
DX: I73.9 Peripheral vascular disease, unspecified (principal)
CPT/HCPCS: 99214

== ENCOUNTER → 2024-10-20 10:48 | Outpatient (BNVA) | payer MEDICARE, MEDICAID, SELFPAY | PROVIDERS: Visit Provider Surgery Vascular Surgery | DX: I73.9 Peripheral vascular disease, unspecified (principal) | CPT/HCPCS: 99212 ==

== ENCOUNTER 2024-10-25 13:45 | Emergency (ER) | payer MEDICARE, MEDICAID, SELFPAY ==
--- NOTE | ~2024-10-25 | XR_ITS ---
CLINICAL HISTORY: pain after fall Four views of the left knee. COMPARISON: None FINDINGS: No suprapatellar joint effusion. Atherosclerotic vascular calcifications. Partially visualized vascular stents. Joint spaces are maintained. Visualized portions of the distal femur, patella, and proximal tibia and fibula appear intact. IMPRESSION: 1. No radiographic evidence of acute injury to the left knee. This document has been electronically signed by: Zane Quintero MD on 10/25/2024 17:09:46
--- NOTE | ~2024-10-25 | XR_ITS ---
CLINICAL HISTORY: pain after fall Three views of the left ankle. COMPARISON: None FINDINGS: Oblique mildly displaced fracture of the distal left fibular diaphysis. There is displacement laterally of the distal fracture component by 2 mm. Distal tibia appears intact. Ankle mortise appears symmetric on non stressed views. Talar dome appears intact. Visualized tarsal bones appear intact. Small calcaneal enthesophyte and plantar calcaneal spur present. Atherosclerotic vascular calcifications. IMPRESSION: 1. Oblique mildly displaced fracture of the distal left fibular diaphysis. This document has been electronically signed by: Zane Quintero MD on 10/25/2024 17:10:13
[2024-10-25 13:49] VITALS: BP 146/63; PULSE 74; RESP 18; TEMP 36.6; O2SAT 98; BMI 24.6
--- NOTE | 2024-10-25 13:49 | ED.GENADULT ---
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 Patient was admitted to this facility in the very air export agent of 10/17/2024. She was admitted for left femoral stent occlusion. This was found to be chronic and the patient has followed up with Dr. Chan, vascular surgery as an outpatient on 10/20/2024. Per his note, he had a hard time finding an area amenable to surgical intervention as the patient has had 6 previous surgeries to the left lower extremity in [place] prior to relocating up here. The patient is due for an outpatient arterial ultrasound she reports that she is here because I saw the doctor in the office and he did not tell me what he wanted to do. She states the pain is keeping her up at night the patient also reports that she fell in the waiting room and injured her left ankle and left knee. Related Data Home Medications ?Medication ?Instructions ?Recorded ?Confirmed fluticasone propionate 50 1 spray intranasal DAILY PRN 08/12/22 10/26/24 mcg/actuation nasal Allergy Symptoms spray,suspension aspirin 81 mg tablet,delayed 81 mg PO BEDTIME blood thinner 09/06/22 10/26/24 release duloxetine 60 mg capsule,delayed 60 mg PO DAILY 09/06/22 10/26/24 release ezetimibe 10 mg tablet 10 mg PO BEDTIME 09/06/22 10/26/24 gabapentin 600 mg tablet 600 mg PO TID 09/06/22 10/26/24 metformin 1,000 mg tablet 1,000 mg PO BIDWM 09/06/22 10/26/24 omeprazole 20 mg capsule,delayed 20 mg PO DAILY@0630 09/06/22 10/26/24 release ranolazine 1,000 mg 1,000 mg PO BID 09/06/22 10/26/24 tablet,extended release,12 hr diphenhydramine HCl 25 mg tablet 25 mg PO BEDTIME PRN Allergic 03/27/23 10/26/24 Symptoms insulin aspart U-100 100 unit/mL See Protocol subcut USEASDIRECTD 03/27/23 10/26/24 (3 mL) subcutaneous pen (Novolog FlexPen U-100 Insulin aspart) insulin degludec 100 unit/mL 25 unit subcut BEDTIME 03/27/23 10/26/24 subcutaneous solution (Tresiba U-100 Insulin) rosuvastatin 40 mg tablet 40 mg PO DAILY 03/28/23 10/26/24 duloxetine 30 mg capsule,delayed 30 mg PO DAILY 10/17/24 10/26/24 release ergocalciferol (vitamin D2) 1,250 1,250 mcg PO TU@0900 10/17/24 10/26/24 mcg (50,000 unit) capsule metoprolol succinate 100 mg 100 mg PO BEDTIME 10/17/24 10/26/24 tablet,extended release 24 hr semaglutide 2 mg/dose (8 mg/3 mL) 2 mg subcut MO@0900 10/17/24 10/26/24 subcutaneous pen injector (Ozempic) Previous Rx's ?Medication ?Instructions ?Recorded clopidogrel 75 mg tablet 75 mg PO DAILY #30 tabs 05/13/23 tramadol 50 mg tablet 50 mg PO Q6H PRN severe pain 10/25/24 (scale score 7-10) #12 tabs Allergies Allergy/AdvReac Type Severity Reaction Status Date / Time apple [Apple] Allergy Unknown APPLE PEEL Verified 10/25/24 13:52 - ITCHY THROAT nut - unspecified [nut] Allergy Unknown ITCHY Verified 10/25/24 13:52 THROAT pineapple [Pineapple] Allergy Unknown ITCHY Verified 10/25/24 13:52 THROAT acetaminophen [From Percocet] Allergy Anxiety Verified 10/25/24 13:52 amoxicillin Allergy Itching Verified 10/25/24 13:52 oxycodone [From Percocet] Allergy Anxiety Verified 10/25/24 13:52 lim AdvReac Intermediate Swelling Verified 10/25/24 13:52 DUST Allergy Unknown EYES, NOSE Uncoded 10/25/24 13:52 ITCHY - ASTHMA GRASS Allergy Unknown ITCHY EYES Uncoded 10/25/24 13:52 - THROAT pet dander AdvReac Mild Itchy Eyes Uncoded 10/25/24 13:52 Review of Systems Constitutional: Constitutional: Denies body ache(s), Denies chills and Denies fever(s) ENT: Denies vertigo and Denies dizziness Cardiovascular: Cardiovascular: Denies chest pain and Denies dyspnea Respiratory: Respiratory: Denies cough and Denies dyspnea Gastrointestinal: Gastrointestinal: Denies abdominal pain, Denies nausea and Denies vomiting Musculoskeletal: Musculoskeletal: Reports arthralgias, Reports joint swelling and Reports limited range of motion Neurologic: Denies vertigo and Denies dizziness [facility] Past Medical History Medical History Dizziness Orthostatic hypotension Stenosis of left vertebral artery CVA (cerebral vascular accident) Peripheral vascular disease Neuropathy Coronary artery disease Brain TIA Hypertension Diabetes Surgical History History of angioplasty of peripheral vessel Status post aorto-coronary artery bypass graft Family History Family History Father Coronary artery disease involving coronary bypass graft Mother No problems noted. Social History Social History Household Members: Family Household Members Other:: lives with brother Housing: Apartment Do you presently have visiting nurse or other home services: No Alcohol intake: never Patient Tobacco Use Status: Former Tobacco user Years Smoked: Remote smoking, quit in her 30s Second Hand Smoke Exposure: No service: No Current occupational status: unemployed Physical Exam ED Vital Signs: Vital Signs - 24 hr 10/27/24 21:11 10/28/24 05:34 10/28/24 07:37 Temperature 98.0 F 97.3 F 97.5 F Pulse Rate 67 63 60 Respiratory Rate 18 17 16 Blood Pressure 162/56 H 174/42 H 171/51 H Pulse Oximetry 95 97 96 Oxygen Delivery Method Room Air Room Air Room Air BMI result Body Mass Index 24.6 Const General: healthy appearing, comfortable, no acute distress, alert and awake Nutritional Appearance: thin Orientation/consciousness: patient oriented x3 HENMT Head: Yes normocephalic and Yes atraumatic Eyes Eyelids: Yes eyelids normal Conjunctivae: conjunctivae normal Sclerae: sclerae normal Corneas: corneas normal Pupils: Equal, round and reactive pupils present EOM: EOMs intact bilaterally Neck Neck: Yes full ROM Resp Effort & Inspection: normal respiratory effort, able to speak in complete sentences and not labored Cardio Rate: regular rate Rhythm: regular rhythm Skin General skin exam: elasticity normal Neuro General: patient oriented x3 Cranial nerves: Yes Equal, round and reactive pupils present and Yes Bilaterally intact EOM present Cognition (Neuro): normal cognition Extrem Other: There was mild left lateral ankle edema. There was no significant tenderness with the left lateral malleolus. Bilateral lower extremities are warm, dry, well perfused. Course Course Course Narrative: RME performed by Mary Wasserman PA-C. Patient is a 63 year old assigned female at presenting to the emergency department with left lower extremity pain. Patient states she has a known clot in her left lower leg as well as stenosis for which she is on Clopidogrel. Patient states that her left foot / lower extremity continues to have pain and hasn't heard from Rocio's office to fix it. Patient's limited physical exam showed no swelling to the left dorsal foot, ankle, or lower leg and no evidence of ischemia (normal skin temp and appearance with good pulses). Detailed physical exam and review of systems are deferred to the data entry clerk. Patient placed back in the waiting room pending room availability. Reevaluation(s) Reevaluation #1: patient reports that she does not feel safe walking with crutches as she has a shoulder issue. She did nearly fall over while standing next to the stretcher but did not. She was sat back on the stretcher. I reached out to Orthopedics, Kale Mccall PA-C, to see if the patient can be discharged home with a walking boot and orthopedics felt the fracture was unstable as it was close to the joint and involve the mortise. the patient was advised to remain in the splint and remain nonweightbearing. given the patient can not manage with crutches and has to remain nonweightbearing she will be a physician observation /case management evaluation for consideration of rehab Time: 18:04 Reevaluation #2: Time: 15:32 Date: 10/26/24 Provider: MAYA Montez Patient in physician observation for case management needs. No acute events reported overnight. c/o pain in the ankle that responds well to tramadol. has allergy to oxycodone and other narcotics. home meds restarted. agreeable to rehab.? No current issues or complaints. VS stable. Patient is pending placement at facility/pending PT/CM eval. Will continue to monitor. Time: 15:32 Reevaluation #3: Time: 16:34 Date: 10/27/24 Provider: MAYA Montez Patient in physician observation for case management needs. No acute events reported overnight.? No current issues or complaints. VS stable. she is pending placement to short-term rehab per Physical therapy recommendations. She is getting tramadol for her pain. Bowel regimen added. Will continue to monitor. Additional Reevaluation(s): Time: 10:15 Date: 10/28/24 Provider: MAYA Garzon Patient in physician observation for case management needs. Patient complaining of pain to splinted extremity & believes it is too tight. Splint evaluated and CMS intact, however patient complaining of continued pain. Splint removed and patient re-splinted with new posterior and stirrup splint. Will continue to monitor, pending STR Time: 11:03 Date: 10/28/24 Provider: MAYA Garzon Physician observation ended at 1230pm. Patient will discharge to [facility] via BLS. Will follow up as an outpatient with Orthopedics. Medications Administered Discontinued Medications Generic Name Dose Route Start Last Admin Trade Name Freq PRN Reason Stop Dose Admin Acetaminophen 975 mg 10/28/24 00:41 10/28/24 01:19 Acetaminophen 325 Mg Tablet PO 10/28/24 00:42 975 mg ONCE ONE Administration Aspirin 81 mg 10/26/24 21:00 10/27/24 20:58 Aspirin Enteric Coated 81 Mg Tablet. PO 81 mg BEDTIME AILIN Administration Atorvastatin Calcium 80 mg 10/27/24 09:00 10/28/24 08:21 Atorvastatin Calcium 80 Mg Tablet PO 80 mg DAILY AILIN Administration Clopidogrel Bisulfate 75 mg 10/26/24 13:45 10/28/24 08:20 Clopidogrel Bisulfate 75 Mg Tablet PO 75 mg DAILY AIILN Administration Diphenhydramine HCl 25 mg 10/26/24 13:30 10/27/24 20:58 Diphenhydramine Hcl 25 Mg Capsule PO 25 mg BEDTIME PRN Administration Allergic Symptoms Docusate Sodium 100 mg 10/27/24 21:00 10/28/24 08:21 Docusate Sodium 100 Mg Capsule PO 100 mg BID AILIN Administration Duloxetine HCl 30 mg 10/26/24 13:45 10/28/24 08:21 Duloxetine Hcl 30 Mg Capsule. PO 30 mg DAILY AILIN Administration Ezetimibe 10 mg 10/26/24 21:00 10/27/24 20:58 Ezetimibe 10 Mg Tablet PO 10 mg BEDTIME AILIN Administration Ergocalciferol 1,250 mcg 10/27/24 09:00 10/27/24 09:17 Ergocalciferol (Vitamin D2) 1,250 Mcg Capsule PO 1,250 mcg TU@0900 AILIN Administration Gabapentin 600 mg 10/26/24 15:00 10/28/24 08:21 Gabapentin 600 Mg Tablet PO 600 mg TID AILIN Administration Gabapentin 600 mg 10/27/24 01:41 10/27/24 01:52 Gabapentin 600 Mg Tablet PO 10/27/24 01:42 600 mg ONCE ONE Administration Ibuprofen 600 mg 10/27/24 16:51 10/27/24 17:24 Ibuprofen 600 Mg Tablet PO 10/27/24 16:52 600 mg ONCE ONE Administration Ibuprofen 600 mg 10/28/24 00:41 10/28/24 01:20 Ibuprofen 600 Mg Tablet PO 10/28/24 00:42 600 mg ONCE ONE Administration Insulin Glargine 17 unit 10/26/24 21:00 10/27/24 21:09 Insulin Glargine,Hum.Rec.Anlog 100 Unit/Ml 10 Ml Vial SUBCUT 17 unit BEDTIME AILIN Administration Insulin Human Lispro 0 unit 10/26/24 16:30 10/28/24 11:29 Insulin Lispro 100 Unit/Ml 3 Ml Vial SUBCUT Not Given [facility] Protocol Metformin HCl 1,000 mg 10/26/24 17:00 10/28/24 08:21 Metformin Hcl 1,000 Mg Tablet PO 1,000 mg BIDWM AILIN Administration Metoprolol Succinate 100 mg 10/26/24 21:00 10/27/24 20:57 Metoprolol Succinate Er 100 Mg Tab.Er.24h PO 100 mg BEDTIME AILIN Administration Protocol Pantoprazole Sodium 40 mg 10/27/24 06:30 10/28/24 07:25 Pantoprazole Sodium 20 Mg Tablet. PO Not Given DAILY@0630 [facility] Tramadol HCl 50 mg 10/25/24 15:48 10/25/24 16:06 Tramadol Hcl 50 Mg Tablet PO 10/25/24 15:49 50 mg ONCE ONE Administration Tramadol HCl 50 mg 10/26/24 04:52 10/26/24 04:57 Tramadol Hcl 50 Mg Tablet PO 50 mg RQ6H PRN Administration Pain, Moderate(Pain Scale 4-6) Tramadol HCl 50 mg 10/26/24 11:35 10/26/24 11:39 Tramadol Hcl 50 Mg Tablet PO 10/26/24 11:36 50 mg ONCE ONE Administration Tramadol HCl 50 mg 10/26/24 11:35 10/28/24 03:11 Tramadol Hcl 50 Mg Tablet PO 50 mg Q6H PRN Administration moderate pain Procedures Orthopedic Splinting/Casting Injury #1: Side: left Lower Extremity Injury Location: lower leg and ankle Lower Extremity Immobilizer: stirrup splint Other Orthopedic Equipment: crutches Medical Decision Making Medical Decision Making MDM Narrative: 63-year-old female presents for evaluation of chronic left leg pain. She is already following as an outpatient with vascular surgery. She is due for an ultrasound that was scheduled for about 1 week when she was seen 5 days ago. The patient does not have a clinically ischemic limb, the lower extremity is warm, dry and well-perfused distal to the femoral stent occlusion. We will treat her pain with tramadol and we will get x-rays of the left knee and ankle due to her fall in the emergency department. She is ambulatory Differential Diagnosis Differential Diagnoses: The differential diagnosis associated with the presentation includes left leg pain Superficial femoral vein occlusion Claudication Peripheral artery disease ankle sprain Admission/Observation Consideration of admission/observation: Escalation of care including admission/observation considered Consult Healthcare Provider Management of the patient was discussed with: Clinic Administrator (orthopedics) Lab Data 10/27/24 08:41 Labs: Lab Results 10/26/24 10/26/24 10/27/24 Range/Units 16:41 21:31 07:10 Creatinine (0.5-1.4) mg/dL Estim Creat Clear Calc Estimated GFR POC Glucose 181 H 95 114 (60-115) mg/dL Influenza Type A (PCR) (Negative) Influenza Type B (PCR) (Negative) RSV RNA Qual (PCR) (Negative) SARS-CoV-2 RNA (RT-PCR) (Negative) 10/27/24 10/27/24 10/27/24 Range/Units 08:41 11:11 16:13 Creatinine 0.85 (0.5-1.4) mg/dL Estim Creat Clear Calc 55.8 Estimated GFR > 60 POC Glucose 176 H 121 H (60-115) mg/dL Influenza Type A (PCR) (Negative) Influenza Type B (PCR) (Negative) RSV RNA Qual (PCR) (Negative) SARS-CoV-2 RNA (RT-PCR) (Negative) 10/27/24 10/28/24 10/28/24 Range/Units 20:54 01:34 07:23 Creatinine (0.5-1.4) mg/dL Estim Creat Clear Calc Estimated GFR POC Glucose 119 H 84 (60-115) mg/dL Influenza Type A (PCR) NEGATIVE (Negative) Influenza Type B (PCR) NEGATIVE (Negative) RSV RNA Qual (PCR) NEGATIVE (Negative) SARS-CoV-2 RNA (RT-PCR) NEGATIVE (Negative) 10/28/24 Range/Units 11:20 Creatinine (0.5-1.4) mg/dL Estim Creat Clear Calc Estimated GFR POC Glucose 136 H (60-115) mg/dL Influenza Type A (PCR) (Negative) Influenza Type B (PCR) (Negative) RSV RNA Qual (PCR) (Negative) SARS-CoV-2 RNA (RT-PCR) (Negative) Independent Interpretation I performed an independent interpretation of an: Plain X-Ray ( left distal fibula fracture) Radiology Impression Discussion of test interpretation with radiology: I have reviewed the radiologist's reading. Radiologist Impression: FINDINGS: Oblique mildly displaced fracture of the distal left fibular diaphysis. There is displacement laterally of the distal fracture component by 2 mm. Distal tibia appears intact. Ankle mortise appears symmetric on non stressed views. Talar dome appears intact. Visualized tarsal bones appear intact. Small calcaneal enthesophyte and plantar calcaneal spur present. Atherosclerotic vascular calcifications. IMPRESSION: 1. Oblique mildly displaced fracture of the distal left fibular diaphysis. This document has been electronically signed by: Zane Quintero MD on 10/25/2024 17:10:13 FINDINGS: No suprapatellar joint effusion. Atherosclerotic vascular calcifications. Partially visualized vascular stents. Joint spaces are maintained. Visualized portions of the distal femur, patella, and proximal tibia and fibula appear intact. IMPRESSION: 1. No radiographic evidence of acute injury to the left knee. This document has been electronically signed by: Zane Quintero MD on 10/25/2024 17:09:46 Discharge Plan Discharge Clinical Impression: Left leg pain, Closed fracture of distal end of left fibula Patient Disposition: Xfer SNF Transfer Details: [facility] Instructions: Leg Fracture (ED) Additional Instructions: you have a fracture of your left ankle wear the splint until cleared by orthopedics. You should not bear weight on the left leg until cleared by Orthopedics keep the splint clean and dry you may use tramadol for severe breakthrough pain this may make you sleepy, did not drink alcohol or drive after taking it follow up with Orthopedics at the number provided Prescriptions: New tramadol 50 mg tablet 50 mg PO Q6H PRN (Reason: severe pain (scale score 7-10)) Qty: 12 0RF No Action fluticasone propionate 50 mcg/actuation spray,suspension 1 spray intranasal DAILY PRN (Reason: Allergy Symptoms) aspirin 81 mg tablet,delayed release (DR/EC) 81 mg PO BEDTIME duloxetine 60 mg capsule,delayed release(DR/EC) 60 mg PO DAILY Rx Instructions: w/ 30 mg ezetimibe 10 mg tablet 10 mg PO BEDTIME gabapentin 600 mg tablet 600 mg PO TID metformin 1,000 mg tablet 1,000 mg PO BIDWM omeprazole 20 mg capsule,delayed release(DR/EC) 20 mg PO DAILY@0630 ranolazine 1,000 mg tablet extended release 12 hr 1,000 mg PO BID clopidogrel 75 mg Tablet 75 mg PO DAILY Qty: 30 0RF ergocalciferol (vitamin D2) 1,250 mcg (50,000 unit) capsule 1,250 mcg PO TU@0900 Ozempic 2 mg/dose (8 mg/3 mL) pen injector 2 mg subcut MO@0900 metoprolol succinate 100 mg tablet extended release 24 hr 100 mg PO BEDTIME duloxetine 30 mg Capsule,Delayed Release(Dr/Ec) 30 mg PO DAILY Rx Instructions: w/ 60 mg insulin degludec [Tresiba U-100 Insulin] 100 unit/mL solution 25 unit subcut BEDTIME diphenhydramine HCl 25 mg Tablet 25 mg PO BEDTIME PRN (Reason: Allergic Symptoms) insulin aspart U-100 [Novolog FlexPen U-100 Insulin] 100 unit/mL (3 mL) Insulin Pen See Protocol SUBCUT USEASDIRECTD Protocol: Insulin Correction Scale Less than or equal to 110 ---- Give (units): 0 111 to 150 Give (units): 0 151 to 200 Give (units): 2 201 to 250 Give (units): 4 251 to 300 Give (units): 6 301 to 350 Give (units): 8 Greater than 350 Give (units): 10 Call MD if Blood Glucose > : 350 rosuvastatin 40 mg tablet 40 mg PO DAILY Referrals: [facility] [place] [place] [facility] [Provider Group] (distal fibula fracture) [facility] [Outside] Interventions: ED Discharge Assessment Last Done: 10/28/24 12:24 Discharge Date/Time: 10/28/24 12:24 Print Language: Ukrainian
--- NOTE | 2024-10-25 15:37 | PC.NURSE ---
pt stated that she was left in the waiting room for ever . explained to pt that the ER is busy and we move patients to the best of our ability. pt continued to stated that other people were brought back before her who arrived after her . educated pt that ERs are not a first come first serve basis but rather based off need. once brought back to [facility] pt stated that she wanted to go visit her family member who is a patient in the ER. Educated pt that while she is here as a patient as well she needs to be in her bed to be evaluated and can make a family visit once her work up has been completed.
[2024-10-25 15:54] VITALS: BP 122/64; PULSE 64; RESP 16; TEMP 36.9; O2SAT 98
[2024-10-25] MEDS: traMADoL HCL 50 MG TABLET PO (16:06)
--- NOTE | 2024-10-25 16:09 | PC.NURSE ---
Patient A&O x 4. Patient presents to ED c/o of LLE pain rated 10/10. Patient states Pain has been going on for months . Denies injury. No swelling noted in extremity. Patient states I have a clot in my leg Patient currently on plavix. No abnormal bleeding noted. Patient able to ambulate w/o assisting device. Medicated patient per MD order with tramadol, effectiveness pending. Plan of care on going
--- NOTE | 2024-10-25 18:27 | PC.NURSE ---
Patient xray on ankle complete. Results show oblique mildly displaced fracture of the distal left fibular diaphysis. Patient attempted crutch training, patient states I cant do it, I feel unsafe Provider notified
--- NOTE | 2024-10-25 18:52 | PC.NURSE ---
elopement band applied to right wrist.
--- NOTE | 2024-10-25 22:25 | PC.NURSE ---
pt resting comfortably on stretcher in no apparent distress. offering no current complaints. plan for pt to be evaluated by pt/cm as pt cannot tolerate use of crutches.
--- NOTE | 2024-10-25 22:36 | PC.NURSE ---
pt given shelia kitty and sandwich as requested.
--- NOTE | 2024-10-26 04:53 | PC.NURSE ---
pt requesting medication for pain to ankle that they gave her yesterday, aware.
[2024-10-26] MEDS: traMADoL HCL 50 MG TABLET PO ×4 (04:57→18:41)
[2024-10-26 04:58] VITALS: BP 130/48; PULSE 62; RESP 16; TEMP 36.6; O2SAT 100
--- NOTE | 2024-10-26 05:09 | PC.NURSE ---
attempted to do patient's med rec, patient only able to confirm some of the meds listed in her chart, unable to recall them all at this time
--- NOTE | 2024-10-26 08:36 | PC.NURSE ---
Physical therapy at bedside
--- NOTE | 2024-10-26 09:15 | PC.NURSE ---
Pharmacy called to double check med rec, will review med rec when able
--- NOTE | 2024-10-26 12:19 | PHA.MEDREC ---
Pharmacy Consult ? Medication Reconciliation Pharmacy has completed the medication reconciliation. Spoke with patient at bedside to confirm medications. All medications matched pharmacy claims and discharge packet from 10/17. Pt was unsure of Zetia 10mg, however discharge packet and claims has this medication current, this was left on the med list.
--- NOTE | 2024-10-26 13:29 | MHC.CM.PN ---
CM CONSULT RECEIVED, PT WITH ANKLE FRACTURE, PT RECOMMENDING STR PT REPORTS SHE LIVES ALONE AND HELPS HER BROTHER WHO LIVES WITH HER SHE DOES NOT USE DME OR SERVICES AT [facility] PT INITIALLY STATING SHE WANTS TO GO HOME, HOWEVER LATER DECIDED TO GO TO STR WHEN SHE LEARNED HER BROTHER WOULD LIKELY DO THE SAME REFERRALS OUT
[2024-10-26] MEDS: DULoxetine HCl 30 MG CAPSULE.DR PO (14:05)
[2024-10-26] MEDS: Clopidogrel Bisulfate 75 MG TABLET PO (14:05)
[2024-10-26] MEDS: Gabapentin 600 MG TABLET PO ×2 (14:05→20:58)
[2024-10-26 14:09] VITALS: BP 172/59; PULSE 64; RESP 16; O2SAT 98
[2024-10-26 16:45] LABS: Glucose, Whole Blood 181 mg/dL (60-115)
[2024-10-26] MEDS: Insulin Lispro 100 UNIT/ML 3 ML VIAL SUBCUT (16:55)
[2024-10-26] MEDS: metFORMIN HCl 1,000 MG TABLET 1000 MG PO (16:55)
[2024-10-26 19:39] VITALS: BP 154/57; PULSE 71; RESP 16; TEMP 36.4; O2SAT 98
[2024-10-26 20:55] VITALS: BP 130/50; PULSE 66; RESP 16; TEMP 36.4; O2SAT 99
[2024-10-26] MEDS: Ezetimibe 10 MG TABLET PO (20:58)
[2024-10-26] MEDS: Metoprolol Succinate ER 100 MG TAB.ER.24H PO (20:58)
[2024-10-26] MEDS: Aspirin Enteric Coated 81 MG TABLET.DR PO (20:58)
[2024-10-26 21:35] LABS: Glucose, Whole Blood 95 mg/dL (60-115)
--- NOTE | 2024-10-27 00:04 | PC.NURSE ---
Assumed care of patient at 1900. Patient alert and oriented x3. Vitals stable, l/s clear, abd soft. Patient reports tolerating pain to left ankle with pain medication. Elevating left leg on pillows. Assisted patient to change into [facility], assisted to bedside commode and back into bed. Bedtime poc 95, notified ED provider , no insulin coverage. Bedtime medications per aug. Callbell within reach, bed alarm on.
[2024-10-27] MEDS: traMADoL HCL 50 MG TABLET PO ×4 (00:45→20:58)
--- NOTE | 2024-10-27 01:41 | PC.NURSE ---
Patient asking for an extra dose of gabapentin. Patient received 600 mg gabapentin at 2100 bedtime medication. Patient reporting a lot of burning, numbess sensation in the left lower leg (leg with the displaced fracture of the distal left fibular diaphysis) and patient feels that an extra dose of gabapnetin will help. ED provider notified. Awaiting orders. Ice provided and elevating leg on pillows.
[2024-10-27] MEDS: Gabapentin 600 MG TABLET PO ×4 (01:52→20:58)
[2024-10-27] MEDS: diphenhydrAMINE HCL 25 MG CAPSULE PO ×2 (03:17→20:58)
--- NOTE | 2024-10-27 03:25 | PC.NURSE ---
This typewriter assembler assumed care of this Pt at 0300. Pt A&Ox3, sitting at edge of bed, denies leg pain in this position. Plan of care on going.
[2024-10-27 05:47] VITALS: BP 177/62; PULSE 62; RESP 16; TEMP 36.6; O2SAT 97
[2024-10-27] MEDS: Pantoprazole Sodium 20 MG TABLET.DR 40 MG PO (05:56)
[2024-10-27 07:28] LABS: Glucose, Whole Blood 114 mg/dL (60-115)
[2024-10-27] MEDS: Atorvastatin Calcium 80 MG TABLET PO (07:48)
[2024-10-27] MEDS: DULoxetine HCl 30 MG CAPSULE.DR PO (07:48)
[2024-10-27] MEDS: metFORMIN HCl 1,000 MG TABLET 1000 MG PO ×2 (07:48→17:24)
[2024-10-27 08:01] VITALS: BP 179/59; PULSE 62; RESP 18; TEMP 36.4; O2SAT 98
--- NOTE | 2024-10-27 09:08 | PC.NURSE ---
Addendum entered by Lorenzo Mosley 10/27/24 09:15: 1511 was the time and not am Original Note: on 10/25/24 at approx 1511 am, the pt was in the waiting room and got out of her chair and walked up to the registration desk. the pt fell on her L side and stated that her l leg now hurt worse than before she fell, providers Fely and Prasad both PA's informed and primer charger informed
[2024-10-27] MEDS: Ergocalciferol (Vitamin D2) 1,250 MCG CAPSULE 1250 MCG PO (09:17)
[2024-10-27] MEDS: Clopidogrel Bisulfate 75 MG TABLET PO (09:17)
[2024-10-27 09:19] LABS: Creatinine Clr Calc Pharmacy 55.8; Estimated Glomerular Filt Rate > 60
--- NOTE | 2024-10-27 10:14 | PC.NURSE ---
Assumed care of pt at 0700. Pt A&Ox4, respirations even and unlabored. Pt c/o 11/24 pain to L ankle - pt medicated per AUG. Pt meal and med compliant - takes pills whole with diet shelia kitty per pt preference. Safety precautions in place - bed alarm on, non-skid footwear in place, call dobbs within reach. Plan of care ongoing.
[2024-10-27 11:15] LABS: Glucose, Whole Blood 176 mg/dL (60-115)
[2024-10-27] MEDS: Insulin Lispro 100 UNIT/ML 3 ML VIAL SUBCUT (11:57)
--- NOTE | 2024-10-27 14:10 | MHC.CM.ED ---
Addendum entered by Vera Alva 10/27/24 15:27: [facility] able to offer a bed to brother. Met with patient. [facility] is 1st choice. Facility is aware and is in the process of obtaining insurance auth. Original Note: Patient remains in ER. Physical therapy eval is completed. At [facility] that [facility] able to offer a bed. Patient's brother is currently admitted to [facility]. Patient would prefer if they could get into the same STR. Waiting to hear from Lynn [facility] case resource manager if [place] can offer a bed to patient. Continue to monitor for d/c needs.
[2024-10-27 16:17] LABS: Glucose, Whole Blood 121 mg/dL (60-115)
[2024-10-27] MEDS: Ibuprofen 600 MG TABLET PO (17:24)
[2024-10-27 20:57] LABS: Glucose, Whole Blood 119 mg/dL (60-115)
[2024-10-27] MEDS: Metoprolol Succinate ER 100 MG TAB.ER.24H PO (20:57)
[2024-10-27] MEDS: Ezetimibe 10 MG TABLET PO (20:58)
[2024-10-27] MEDS: Aspirin Enteric Coated 81 MG TABLET.DR PO (20:58)
[2024-10-27] MEDS: Docusate Sodium 100 MG CAPSULE PO (20:58)
[2024-10-27] MEDS: Insulin Glargine,Hum.rec.anlog 100 UNIT/ML 10 ML VIAL 17 UNIT SUBCUT (21:09)
[2024-10-27 21:11] VITALS: BP 162/56; PULSE 67; RESP 18; TEMP 36.7; O2SAT 95
[2024-10-28] MEDS: Acetaminophen 325 MG TABLET 975 MG PO (01:19)
[2024-10-28] MEDS: Ibuprofen 600 MG TABLET PO (01:20)
[2024-10-28 02:59] LABS: Influenza A PCR NEGATIVE (Negative); Influenza B PCR NEGATIVE (Negative); Resp Syncy Virus RNA Qual PCR NEGATIVE (Negative); SARS COV2 PCR INHOUSE NEGATIVE (Negative)
[2024-10-28] MEDS: traMADoL HCL 50 MG TABLET PO (03:11)
--- NOTE | 2024-10-28 03:30 | PC.NURSE ---
Pt in and out of sleep reporting pain to the left ankle that is beyond a 10. She states that her left ankle hurts and is exacerbating her neuropathy pain and at this time she is requesting gabapentin to assist. Pt currently receives this medication TID, communication sent to the provider regarding the pt's request and this RN is awaiting a response. The pt is currently sitting up on the edge of the bed, with hands over eyes, rocking back and forth as she states the pain is so severe and is not allowing her to fall asleep. RN will continue to monitor and follow up with providers in the main regarding treatment options.
[2024-10-28 05:34] VITALS: BP 174/42; PULSE 63; RESP 17; TEMP 36.3; O2SAT 97
[2024-10-28 07:27] LABS: Glucose, Whole Blood 84 mg/dL (60-115)
[2024-10-28 07:37] VITALS: BP 171/51; PULSE 60; RESP 16; TEMP 36.4; O2SAT 96
[2024-10-28] MEDS: Clopidogrel Bisulfate 75 MG TABLET PO (08:20)
[2024-10-28] MEDS: Atorvastatin Calcium 80 MG TABLET PO (08:21)
[2024-10-28] MEDS: DULoxetine HCl 30 MG CAPSULE.DR PO (08:21)
[2024-10-28] MEDS: Gabapentin 600 MG TABLET PO (08:21)
[2024-10-28] MEDS: Docusate Sodium 100 MG CAPSULE PO (08:21)
[2024-10-28] MEDS: metFORMIN HCl 1,000 MG TABLET 1000 MG PO (08:21)
--- NOTE | 2024-10-28 09:18 | PC.NURSE ---
Addendum entered by Anil Ramirez RN 10/28/24 11:22: report given to facility. pt c/o burning sensation to left Lat maleolus. md informed. splint to be adjusted. Original Note: informed MD of pt's BP and c/o spint being uncomfortable and needing to be adjusted
--- NOTE | 2024-10-28 11:02 | MHC.CM.ED ---
Patient remains in ER overflow. Insurance auth obtained by [facility]. Patient can leave at 1230pm. Luz OLSON booked. Med nec with chart. Patient, Anil JEFFRIES and Mckenzie TREJO aware. Continue to monitor for d/c needs.
[2024-10-28 11:24] LABS: Glucose, Whole Blood 136 mg/dL (60-115)
[2024-10-28 12:24] VITALS: BP 170/50; PULSE 60; RESP 16; TEMP 36.6; O2SAT 97
== END 2024-10-28 12:24 | disposition skilled nursing facility (03) ==
PROVIDERS: Physician Assistant; Emergency Provider Emergency Medicine Emergency Medical Services
DX: M79.605 Pain in left leg (principal); S82.432A Displaced oblique fracture of shaft of left fibula, initial encounter for closed fracture; W18.30XA Fall on same level, unspecified, initial encounter; I70.202 Unspecified atherosclerosis of native arteries of extremities, left leg; R60.0 Localized edema; E11.8 Type 2 diabetes mellitus with unspecified complications; I10 Essential (primary) hypertension; E78.5 Hyperlipidemia, unspecified; I73.9 Peripheral vascular disease, unspecified; Z95.1 Presence of aortocoronary bypass graft; Z03.818 Encounter for observation for suspected exposure to other biological agents ruled out; Z79.4 Long term (current) use of insulin; Z79.84 Long term (current) use of oral hypoglycemic drugs; Z79.02 Long term (current) use of antithrombotics/antiplatelets; Z79.82 Long term (current) use of aspirin; Z79.01 Long term (current) use of anticoagulants; Z79.899 Other long term (current) drug therapy; Y93.89 Activity, other specified; Y92.538 Other ambulatory health services establishments as the place of occurrence of the external cause; Y99.9 Unspecified external cause status
CPT/HCPCS: 0241U; 29515; 36415; 73562; 73610; 82565; 82947; 97162; 99285

== ENCOUNTER → 2024-10-25 15:39 | Outpatient (BNV) | payer MEDICARE, MEDICAID, SELFPAY | PROVIDERS: Emergency Provider Emergency Medicine Emergency Medical Services; Visit Provider Radiology Diagnostic Radiology | DX: M25.562 Pain in left knee (principal); S82.432A Displaced oblique fracture of shaft of left fibula, initial encounter for closed fracture | CPT/HCPCS: 73562; 73610 ==

== ENCOUNTER 2024-12-14 07:09 | Outpatient (REF) | payer MEDICARE, MEDICAID, SELFPAY ==
--- NOTE | ~2024-12-14 | XR_ITS ---
EXAMINATION: XR ANKLE, LEFT CLINICAL INFORMATION: M25.572 - Pain in left ankle and joints of left foot COMPARISON: 10/25/2024. TECHNIQUE: AP, lateral, and mortise views of the left ankle. FINDINGS: Redemonstration of an oblique fracture of the distal fibular metadiaphysis extending to the level of the syndesmosis. No change in appearance or alignment. Fracture lines demonstrate mild sclerosis, although no gross bony callus present. No additional fracture. The mortise appears intact and symmetric. The talar dome appears intact. There is mild degenerative arthritis in the tibiotalar joint. The subtalar joints appear normal. There are small dorsal and plantar calcaneal spurs. There is an ankle joint effusion. There is persistent soft tissue swelling. XR/XR ankle LT min 3V IMPRESSION: Oblique mildly displaced fracture of the distal left fibular metadiaphysis, without significant change. Electronically signed by: Onel Herrera MD 12/21/2024 11:50 AM EDT
--- OUTSIDE RECORDS SUMMARY | 2024-12-15 07:11 | XMS_ITS | Patient Health Record ---
Author Organization [facility] Address [address] [facility] [place] [address] Care Team Providers Care Sharepoint Admin Name Role Phone Maria R Sarmiento Primary Care Provider Unavailab Willian Warren Unavailable [phone] Allergies Allergen (clinical drug ingredient) Drug/Non Drug [...] Problem Acquired hammer toe of right foot (47457907217803 05) Other hammer toe(s) (acquired), right foot (M20.41) Active confirmed Problem Type 2 diabetes mellitus with peripheral angiopathy (190925442) Type 2 diabetes mellitus with diabetic peripheral angiopathy without gangrene (E11.51) Active confirmed Problem Acquired hammer toe of left foot (75872983115331 03) Other hammer toe(s) (acquired), left foot (M20.42) Active confirmed Plan Of Treatment Pending Test Test Name Order Date [id number] NAIL, 6 OR MORE 11/26/2022 [id number] NAIL, 6 OR MORE 02/25/2023 99415-Mlcghqbx Plate 02/25/2023 [id number] Plate 11/26/2022 [id number] SKIN LESIONS, 2 TO 4 11/27/19 81646-ZEJR SKIN LESIONS, 2 TO 4 02/26/20 Insurance Providers Payer Name Payer Address Payer Phone Subscriber Number Group Number Insured Name Patient Relationship to Insured Coverage Start Date Coverage End Date [facility] 65 Medicare Preferred [address] [place] [address] [phone] [id number] Vee Parisi Self - patient is [...] Hand Surgery tooth Hospitalization History Reason Date(Month/Year) [facility]
--- OUTSIDE RECORDS SUMMARY | 2024-12-15 07:11 | XMS_ITS | Encounter Summary ---
Author Organization [employer] Address [address] [place] [address] Care Team Providers Care Fryline Attendant Name Role Phone Unavailable Primary Care Provider [...]
== END 2024-12-14 07:10 | disposition home or self-care (01) ==
LOC: HO.HOSX 07:09
PROVIDERS: Visit Provider Physician Assistant
DX: S82.892A Other fracture of left lower leg, initial encounter for closed fracture (principal)
CPT/HCPCS: 73610; 99212

== ENCOUNTER 2024-12-14 10:56 | Outpatient (AMB) | payer MEDICARE, MEDICAID, SELFPAY ==
--- NOTE | 2024-12-14 11:02 | MHC.OFFVIS ---
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 She followed up w/ Dr Chan on 10/20/24 and per his note he had a hard time finding an area amenable to surgical intervention as the patient has had 6 previous surgeries to the left lower extremity in [place] prior to relocating up here. Patient was admitted to this facility in the very wood gluer of 10/17/2024. She also fell in ED waiting room and hurt left knee and left ankle same day. She was placed in a walking boot. Patient reports her current pain level is a 10 out of 10. She also complains of pain toes. She mentions discomfort in her right leg from over compensation. Allergies apple (Apple) Allergy (Unknown, Verified 12/14/24 11:03) APPLE PEEL - ITCHY THROAT nut - unspecified (nut) Allergy (Unknown, Verified 12/14/24 11:03) ITCHY THROAT pineapple (Pineapple) Allergy (Unknown, Verified 12/14/24 11:03) ITCHY THROAT acetaminophen (From Percocet) Allergy (Verified 12/14/24 11:03) Anxiety amoxicillin Allergy (Verified 12/14/24 11:03) Itching oxycodone (From Percocet) Allergy (Verified 12/14/24 11:03) Anxiety lim Adverse Reaction (Intermediate, Verified 12/14/24 11:03) Swelling DUST Allergy (Unknown, Uncoded 12/14/24 11:03) EYES, NOSE ITCHY - ASTHMA GRASS Allergy (Unknown, Uncoded 12/14/24 11:03) ITCHY EYES - THROAT pet dander Adverse Reaction (Mild, Uncoded 12/14/24 11:03) Itchy Eyes HPI 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 Initially she was placed in a splint and transitioned to a boot, WBAT with the boot only. Being discharged from the emergency department on 05/11 she was transitioned to a rehab facility. While in the rehab facility she developed some and edema and other complications related to her comorbidities and was transferred to [facility] for further evaluation and treatment. While in [facility] she was placed in a boot and referred for out patient orthopedic eval. She presents today for ortho eval. She is currently being treated by vascular for her lower extremity vascular condition. [facility] Medical History Dizziness Orthostatic hypotension Stenosis of left vertebral artery CVA (cerebral vascular accident) Peripheral vascular disease Neuropathy Coronary artery disease Brain TIA Hypertension Diabetes Surgical History History of angioplasty of peripheral vessel Status post aorto-coronary artery bypass graft Family History Father Coronary artery disease involving coronary bypass graft Mother No problems noted. Social History Household Members: Family Household Members Other:: lives with brother Housing: Apartment Do you presently have visiting nurse or other home services: No Alcohol intake: never Patient Tobacco Use Status: Former Tobacco user Years Smoked: Remote smoking, quit in her 30s Second Hand Smoke Exposure: No service: No Current occupational status: unemployed Review of Systems Const All systems reviewed & are unremarkable except as noted in HPI and below Physical Exam Const General: cooperative and no acute distress Orientation/consciousness: patient oriented x3 Resp Effort & Inspection: normal respiratory effort and able to speak in complete sentences Cardio Peripheral pulses: Peripheral pulses 2+ throughout Neuro General: patient oriented x3 Extrem Other: Left ankle is normal to inspection she has moderate swelling through the ankle into the foot in her digits. Pulses are intact. She does have some vascular changes over the toes which appear ecchymotic in nature. Office Procedures AMB Fracture Care Fracture Billing Code: Fracture Billing Code Results Reviewed Results Reviewed: X-rays of the left ankle obtained in the office today and reviewed by me show a stable well healing distal fibular fracture with ankle mortise intact. Assessment & Plan Assessment & Plan (1) Closed left ankle fracture: Code(s): S82.892A - Other fracture of left lower leg, initial encounter for closed fracture Category: Medical Plan: The patient was transitioned to a short boot weightbearing as tolerated. She has been wearing a tall boot weightbearing as tolerated and at this time she can transition to a short boot given the stability of the fracture and the tall boot was causing a wound over the tibial tubercle. Given she has uncontrolled diabetes I would try to reduce the risk of continued wound breakdown over this area which is why I decided on a short boot. She can weightbear as tolerated with the boot but she will need to take this off for skin checks and showering. She can continue working with physical therapy for range of motion in stretching exercises. I will see her back in 6 weeks with x-rays sooner if needed. Orders: Orders XR ankle LT min 3V Today M25.572 - Pain in left ankle and joints of left foot PT Evaluation and Treatment Today S82.892A - Other fracture of left lower leg, initial encounter for closed fracture Coding Level of Care Code Est Pt Level 3 (09219) Complex EM visit Add On G2211 Diagnoses Closed left ankle fracture S82.892A CPT Codes Fracture Care - Fracture Billing Code: Fracture Billing Code ([id number])
--- OUTSIDE RECORDS SUMMARY | 2024-12-14 11:46 | XMS_ITS | Patient Health Record ---
Author Organization [facility] Address [address] [place] [address] Care Team Providers Care Rug Cleaner Name Role Phone Torsten Maria R Primary Care Provider Unavailab Willian Warren Unavailable [phone] Allergies Allergen (clinical drug ingredient) Drug/Non Drug [...] Hammertoe Foot Deformity(M20.41,M20.42), Preulcerative Skin Lesion(s)(L85.1) Wear Daily; Duration: 365 days Active Lisinopril Active DULoxetine HCl [...] Problem Acquired hammer toe of right foot (84054188992286 05) Other hammer toe(s) (acquired), right foot (M20.41) Active confirmed Problem Type 2 diabetes mellitus with peripheral angiopathy (358576309) Type 2 diabetes mellitus with diabetic peripheral angiopathy without gangrene (E11.51) Active confirmed Problem Acquired hammer toe of left foot (21765213668841 03) Other hammer toe(s) (acquired), left foot (M20.42) Active confirmed Plan Of Treatment Pending Test Test Name Order Date [id number] NAIL, 6 OR MORE 11/26/2022 [id number] NAIL, 6 OR MORE 02/25/2023 03985-Hilcoxyv Plate 02/25/2023 [id number] Plate 11/26/2022 [id number] SKIN LESIONS, 2 TO 4 11/27/19 [id number] SKIN LESIONS, 2 TO 4 02/26/20 Insurance Providers Payer Name Payer Address Payer Phone Subscriber Number Group Number Insured Name Patient Relationship to Insured Coverage Start Date Coverage End Date [facility] 65 Medicare Preferred [address] [place] [address] [phone] [id number] Vee Parisi Self - patient is [...] Hand Surgery tooth Hospitalization History Reason Date(Month/Year) [facility] [place]
== END 2024-12-14 11:42 | disposition home or self-care (01) ==
LOC: HO.HOS 10:56
PROVIDERS: Visit Provider Physician Assistant
DX: S82.892A Other fracture of left lower leg, initial encounter for closed fracture (principal)
CPT/HCPCS: 99213; G2211

== ENCOUNTER → 2024-12-14 10:57 | Outpatient (BNV) | payer MEDICARE, MEDICAID, SELFPAY | PROVIDERS: Visit Provider Radiology Diagnostic Radiology | DX: M25.472 Effusion, left ankle (principal) | CPT/HCPCS: 73610 ==

== ENCOUNTER 2024-12-23 09:40 | Outpatient (REF) | payer MEDICARE, MEDICAID, SELFPAY ==
--- NOTE | ~2024-12-23 | US_ITS ---
EXAMINATION: US NONINVASIVE ASSESSMENT OF THE BILATERAL LOWER EXTREMITY WITH ARTERIAL DUPLEX AND ANKLE BRACHIAL INDICES (ABIS) CLINICAL INFORMATION: Peripheral vascular disease, unspecified. Patient with bilateral SFA stents, 2 tandem on the right, and 1 on the left. COMPARISON: None available. TECHNIQUE: Duplex Doppler techniques with waveform analysis and measurement of velocities in the common femoral, profunda femoris, superficial femoral, popliteal and tibial arteries were performed. In addition, ankle pulse volume recordings, ankle pressure measurements and ankle brachial indices were obtained of the bilateral lower extremity arterial system. The study was performed only at rest. FINDINGS: NONINVASIVE ASSESSMENT OF THE ARTERIES OF BILATERAL LOWER EXTREMITIES WITH ABIs: RIGHT LEG: Ankle-brachial index: 0.35 Segmental pressures: PT: 56 DP: 51 PVR WAVEFORMS: Abnormal, monophasic. LEFT LEG: Ankle-brachial index: 1.07 Segmental pressures: PT: 169 DP: 147 PVR WAVEFORMS: Abnormal, monophasic. MIGUELITO Reference: 0.9 - 1.4 = normal - no significant arterial disease 0.7 - 0.89 = mild peripheral arterial disease 0.51 - 0.69 = moderate peripheral arterial disease 0.50 = severe peripheral arterial disease Atheromatous Plaque: Scattered significant atheromatous plaque is present bilaterally. RIGHT FEMORAL RUNOFF VELOCITIES: The right common femoral artery measures 215 cm/s and is biphasic. (Moderate stenosis suspected) The right profunda femoral artery is 80.2 cm/s and is biphasic. The right proximal superficial femoral artery is stented, see below. The right mid superficial femoral artery is stented, see below. The right distal right superficial femoral artery is stented, see below. The right popliteal velocity measures 46.5 cm/s and is monophasic. The right posterior tibial artery velocity measures 6.6 cm/s and is monophasic. RIGHT SFA PROXIMAL STENT, proximal to distal: Proximal qawalangin artery; PSV = 238 cm/s with biphasic waveforms. (Moderate stenosis suspected). Proximal stent; PSV = 48.3 cm/s with biphasic waveforms. Mid stent; PSV = 13.2 cm/s with monophasic waveforms. Distal stent; PSV = 13.9 cm/s with monophasic waveforms. RIGHT SFA DISTAL STENT, proximal to distal: Proximal stent; PSV = 85 cm/s with monophasic waveforms. Mid stent; PSV = 85 cm/s with monophasic waveforms. Distal stent; PSV = 70 cm/s with monophasic waveforms. Distal qawalangin artery; PSV = 24.7 cm/s with monophasic waveforms. LEFT FEMORAL RUNOFF VELOCITIES: The left common femoral artery measures 278 cm/s and biphasic. (Moderate to severe stenosis suspected). The left profunda femoral artery is 190.2 cm/s and is biphasic. (Mild stenosis suspected) The left proximal superficial femoral artery measures is stented, see below. The left mid superficial femoral artery is stented, see below. The left distal right superficial femoral artery is stented, see below. The left popliteal velocity measures 83.8 cm/s and is monophasic. The left posterior tibial artery velocity measures 96.9 cm/s and is monophasic. LEFT SFA PROXIMAL STENT, proximal to distal: Proximal qawalangin artery; PSV = 272 cm/s with triphasic waveforms. (Mild stenosis suspected). Proximal stent; PSV = 115 cm/s with biphasic waveforms. Mid stent; PSV = 51.3 cm/s with monophasic waveforms. Distal stent; PSV = 114.8 cm/s with monophasic waveforms. Distal qawalangin artery; PSV = 124.7 cm/s with monophasic waveforms. US/US arterial duplex BI w/ MIGUELITO IMPRESSION: 1. Severe right and moderate to severe left peripheral arterial vascular disease. 2. There are 2 right tandem SFA stents in place. There is a solitary left SFA stent in place. Stents are patent without thrombosis. See above for stent velocity and waveform details. 3. Moderate to severe stenoses suspected of the left greater than right common femoral arteries. Electronically signed by: Onel Herrera MD 12/23/2024 12:04 PM EDT
--- OUTSIDE RECORDS SUMMARY | 2024-12-23 10:13 | XMS_ITS | Patient Health Record ---
Author Organization [facility] Address [address] [place] [address] Care Team Providers Care Undergraduate Advisor Name Role Phone Maria R Sarmiento Primary Care Provider Unavailab Willian Warren Unavailable [phone] Allergies Allergen (clinical drug ingredient) Drug/Non Drug [...] Problem Acquired hammer toe of right foot (20184024256648 05) Other hammer toe(s) (acquired), right foot (M20.41) Active confirmed Problem Type 2 diabetes mellitus with peripheral angiopathy (527713273) Type 2 diabetes mellitus with diabetic peripheral angiopathy without gangrene (E11.51) Active confirmed Problem Acquired hammer toe of left foot (68647519326329 03) Other hammer toe(s) (acquired), left foot (M20.42) Active confirmed Plan Of Treatment Pending Test Test Name Order Date [id number] NAIL, 6 OR MORE 11/26/2022 [id number] NAIL, 6 OR MORE 02/25/2023 56544-Txrrnmdd Plate 02/25/2023 [id number] Plate 11/26/2022 [id number] SKIN LESIONS, 2 TO 4 11/27/19 [id number] SKIN LESIONS, 2 TO 4 02/26/20 Insurance Providers Payer Name Payer Address Payer Phone Subscriber Number Group Number Insured Name Patient Relationship to Insured Coverage Start Date Coverage End Date [facility] 65 Medicare Preferred [address] [place] [address] [phone] [id number] Vee Parisi Self - patient is [...] Hand Surgery tooth Hospitalization History Reason Date(Month/Year) [facility] [place] fainted 10/2022
--- OUTSIDE RECORDS SUMMARY | 2024-12-23 10:13 | XMS_ITS | Encounter Summary ---
Author Organization [employer] Address [address] [facility] [address] [facility] [address] [place] [address] Care Team Providers Care Curtain Feller Blindstitch Name Role Phone Unavailable Primary Care Provider [...]
== END 2024-12-23 09:41 | disposition home or self-care (01) ==
LOC: HO.US 09:40
PROVIDERS: Visit Provider Surgery Vascular Surgery
DX: I73.9 Peripheral vascular disease, unspecified (principal)
CPT/HCPCS: 93922; 93925

== ENCOUNTER → 2024-12-23 09:43 | Outpatient (BNV) | payer MEDICARE, MEDICAID, SELFPAY | PROVIDERS: Visit Provider Radiology Diagnostic Radiology | DX: I73.9 Peripheral vascular disease, unspecified (principal) | CPT/HCPCS: 93922; 93925 ==

== ENCOUNTER 2024-12-31 12:59 | Outpatient (AMB) | payer MEDICARE, MEDICAID, SELFPAY ==
--- OUTSIDE RECORDS SUMMARY | 2024-12-31 13:29 | XMS_ITS | Encounter Summary ---
Author Organization [employer] Address [address] [facility] [address] [place] [address] Care Team Providers Care Dredge Runner Name Role Phone Unavailable Primary Care Provider [...]
--- OUTSIDE RECORDS SUMMARY | 2024-12-31 13:29 | XMS_ITS | Patient Health Record ---
Author Organization [facility] Address [address] [place] [address] Care Team Providers Care Supervisor Finishing Room Name Role Phone Joanne Blankenship M.D Primary Care Provider Jesus Coleman Unavailable [phone] Allergies Allergen (clinical drug ingredient) Drug/Non Drug Allergy documented on EMR Reaction Allergy Type Onset Date Status acetaminophen / oxycodone Percocet itching Drug Allergy Active Reason For Referral No Information Medications Medication SIG (Take, Route, Frequency, Duration) Notes Start Date End Date Status Plavix 75 MG 1 tablet Orally Once a day 05/08/2019 Unknown metroNIDAZOLE 500 MG 1 tablet Orally Onc e a day; Duration: 10 day(s) 05/08/2019 Unknown Omeprazole 40 MG 1 capsule 30 minutes before morning meal Orally Once a day 05/08/2019 Unknown Ciprofloxacin HCl 500 MG 1 tablet Orally every 12 hrs; Duration: 3 day(s) 05/08/2019 Unknown traMADol HCl 50 MG 1 tablet as needed Orally every 6 hours 05/08/2019 Unknown Aspirin 81 81 MG 1 tablet Orally Once a day 05/08/2019 Unknown Isosorbide Dinitrate 30 MG 1 tablet Oral ly Twice a day 05/08/2019 Unknown Amitriptyline HCl 50 MG 1 tablet at bedt jolly Orally Once a day 05/08/2019 Unknown Atorvastatin Calcium 80 MG 1 tablet Oral ly Once a day at bedtime 05/08/2019 Unknown Amoxicillin 875 MG 1 tablet Orally 05/08/2019 Unknown Zofran 4 MG 1 tablet Orally Once a day 05/08/2019 Unknown Gabapentin 600 MG 1 tablet Orally 3x a day; Duration: 90 day(s) 05/08/2019 Unknown predniSONE 10 MG 2 tablets Orally twi ce a day; Duration: 3 day(s) 05/08/2019 Unknown LORazepam 0.5 MG 1 tablet as needed Orally three times a day 05/08/2019 Unknown Enalapril Maleate 10 MG 1 tablet Orally twice a day 05/08/2019 Unknown buPROPion HCl 75 MG 2 tablets Orally Twi a day 05/08/2019 Unknown HumaLOG 100 UNIT/ML as directed Subcutaneous 05/08 Unknown Fluconazole 150 MG 1 tablet Orally as o ne dose 05/08/2019 Unknown Azithromycin 250 MG 2 tablet on the t day, then 1 tablet daily for 4 days Orally Once a day; Duration: 4 day(s) 05/08/2019 Unknown Nystop 502027 UNIT/GM 1 application Externally Unknown Clarithromycin 500 MG 1 tablet Orally 05/08/2019 Unknown Isosorbide Mononitrate ER 30 MG 1 tablet in the morning Orally Once a day 05/08/2019 Unknown Lisinopril 20 MG 1 tablet Orally Once a day; Duration: 90 days 05/08/2019 Unknown Metoprolol Succinate ER 100 MG 1 tablet Orally Once a day 05/08/2019 Unknown clonazePAM 0.5 MG 1 tablet at bedtime Orally Once a day as needed 05/08/2019 Unknown Lantus 100 UNIT/ML 30 units in the morn ing; 40 units at bedtime Subcutaneous 05/08/2019 Unknown Immunizations Vaccine Route Administration Date Status Comme nts Influenza, seasonal, injecta ble (split), for 3 yrs and up Unknown 02/15/2015 Administered Influenza, seasonal, injecta ble (split), for 3 yrs and up Unknown 04/25/2015 Administered Pneumococcal polysaccharide PPV23 Unknown 01/28/2007 Ad ministered Tdap Unknown 01/04/2009 Administered Problems Problem Type SNOMED Code ICD Code Onset Dates Problem Status W/U Status Risk Notes Problem Corns and callosities (L84) Active confirmed Plan Of Treatment No Information Insurance Providers Payer Name Payer Address Payer Phone Subscriber Number Group Number Insured Name Patient Relationship to Insured Coverage Start Date Coverage End Date [employer] [address] [address] [place] [address] [id number] Vee Parisi Self - patient is the insured Medical (General) History Medical History History ICD Code Gastroesphageal Reflux Anxiety Disorder Other sleep issue Heart Disease Depression Coronary Artery Disease High Blood pressure Peripheral Arterial Disease High Cholesterol Heart Problems Back pain Heart Attack ([place]) Allergies Surgical History Surgery Date(Month/Year) Cardiac Catheterization 07/2016 Peripheral Artery intervention 01/2018 Cardiac Catheterization 01/2016 Cardiac Catheterization 12/2015 Cardiac Catheterization 06/2015 Vascular surgery 03/2015 Stent Placement Breast Surgery Carpal Tunnel Surgery Heart Surgery
--- OUTSIDE RECORDS SUMMARY | 2024-12-31 13:29 | XMS_ITS | Patient Health Record ---
Author Organization [facility] Address [address] [facility] [place] [address] Care Team Providers Care Residential Director Name Role Phone Torsten Maria R Primary Care Provider Unavailab Willian Warren Unavailable [phone] Allergies Allergen (clinical drug ingredient) Drug/Non Drug [...] Problem Acquired hammer toe of right foot ([id number] 05) Other hammer toe(s) (acquired), right foot (M20.41) Active confirmed Problem Type 2 diabetes mellitus with peripheral angiopathy (282006370) Type 2 diabetes mellitus with diabetic peripheral angiopathy without gangrene (E11.51) Active confirmed Problem Acquired hammer toe of left foot ([id number] 03) Other hammer toe(s) (acquired), left foot (M20.42) Active confirmed Plan Of Treatment Pending Test Test Name Order Date [id number] NAIL, 6 OR MORE 11/26/2022 [id number] NAIL, 6 OR MORE 02/25/2023 [id number] Plate 02/25/2023 [id number] Plate 11/26/2022 [id number]-[id number] SKIN LESIONS, 2 TO 4 11/27/19 [id number] SKIN LESIONS, 2 TO 4 02/26/20 Insurance Providers Payer Name Payer Address Payer Phone Subscriber Number Group Number Insured Name Patient Relationship to Insured Coverage Start Date Coverage End Date [facility] 65 Medicare Preferred [address] [place] [address] [phone] [id number] Vee Parisi Self - patient is [...] Hand Surgery tooth Hospitalization History Reason Date(Month/Year) [facility] [place]- fainted 10/2022
[2024-12-31 13:50] VITALS: BP 100/52; PULSE 74; BMI 24.7
--- NOTE | 2024-12-31 13:50 | MHC.OFFVIS ---
Vital Signs 12/31/24 13:50 Height 5 ft 1 in Weight 130 lb 8.218 oz BMI 24.7 BP 100/52 L Blood Pressure Location Lt brachial Position Sitting Pulse 74 Pulse Source Monitor Intake Visit Reasons: Follow up-Chest Pain Manager Of Care Required: No Slitter Scorer Cut Off Operator: Slitter Scorer Cut Off Operator Present Allergies apple (Apple) Allergy (Unknown, Verified 12/31/24 15:20) APPLE PEEL - ITCHY THROAT nut - unspecified (nut) Allergy (Unknown, Verified 12/31/24 15:20) ITCHY THROAT pineapple (Pineapple) Allergy (Unknown, Verified 12/31/24 15:20) ITCHY THROAT acetaminophen (From Percocet) Allergy (Verified 12/31/24 15:20) Anxiety amoxicillin Allergy (Verified 12/31/24 15:20) Itching oxycodone (From Percocet) Allergy (Verified 12/31/24 15:20) Anxiety lim Adverse Reaction (Intermediate, Verified 12/31/24 15:20) Swelling DUST Allergy (Unknown, Uncoded 12/31/24 15:20) EYES, NOSE ITCHY - ASTHMA GRASS Allergy (Unknown, Uncoded 12/31/24 15:20) ITCHY EYES - THROAT pet dander Adverse Reaction (Mild, Uncoded 12/31/24 15:20) Itchy Eyes Medication List - Last Reconciled 12/31/24 by COLTEN Vance clopidogrel 75 mg PO DAILY duloxetine 60 mg PO DAILY ergocalciferol (vitamin D2) 1,250 mcg PO TU@0900 ezetimibe 10 mg PO BEDTIME fluticasone propionate 50 mcg/actuation 1 spray intranasal DAILY PRN gabapentin 300 mg PO TID hydromorphone mg PO insulin aspart U-100 (Novolog FlexPen U-100 Insulin aspart) See Protocol sliding scale doses subcut USEASDIRECTD insulin degludec (Tresiba U-100 Insulin) 25 units subcut BEDTIME metformin 1,000 mg PO BIDWM metoprolol succinate ER 100 mg PO BEDTIME pantoprazole 40 mg PO DAILY ranolazine ER 1,000 mg PO BID rosuvastatin 40 mg PO DAILY HPI HPI Follow up-Chest Pain: Details: Vee is a 61 yo female with PMH of HTN, HLD, DM, CAD, 3 vessel CABG 2018, heart murmur, PVD with known left femoral stent occlusion who presents for follow-up. Her last prior and initial visit to our office was 09/06/2022. She did undergo cardiac catheterization 05/14/2023 with PCI to the vein graft aorta left to 1st OM. Today she reports that she had a recent fall with fracture to her left ankle. She is wearing an orthopedic boot right now. She tells me she was having discoloration to her toes and then underwent an angiogram to her left leg and they were able to clean it out some. She has a follow-up with Dr. Chan later today. She says her heart has been doing okay overall since her cardiac catheterization. She did experience a vague discomfort in her left lateral chest on 3 separate occasions while at rest. She had much difficulty in trying to describe this. She has not had chest symptoms brought on by physical activity. She has no concerning shortness of breath, PND, orthopnea or edema. No heart palpitations, lightheadedness, presyncope, syncope. She reports compliance with all her medications. Her daughter is present and tells me her mother is forgetful. She is mostly sedentary. Her primary complaint is of leg pain. [facility] Medical History Dizziness Orthostatic hypotension Stenosis of left vertebral artery CVA (cerebral vascular accident) Peripheral vascular disease Neuropathy Coronary artery disease Brain TIA Hypertension Diabetes Surgical History History of angioplasty of peripheral vessel Status post aorto-coronary artery bypass graft Family History Father Coronary artery disease involving coronary bypass graft Mother No problems noted. Social History Household Members: Family Household Members Other:: lives with brother Housing: Apartment Do you presently have visiting nurse or other home services: No Alcohol intake: never Patient Tobacco Use Status: Former Tobacco user Years Smoked: Remote smoking, quit in her 30s Second Hand Smoke Exposure: No service: No Current occupational status: unemployed Review of Systems Const All systems reviewed & are unremarkable except as noted in HPI and below ENT Denies dizziness Card Details: vague discomfort, left lateral chest. Pain with movement left shoulder Denies chest pain, Denies chest pain at rest, Denies chest pain with activity, Denies rapid heart rate, Denies pedal edema, Denies edema, Denies leg edema, Denies lightheadedness, Denies palpitations, Denies dyspnea, Denies dyspnea on exertion and Denies orthopnea Resp Denies cough, Denies dyspnea and Denies dyspnea on exertion GI Denies hematochezia and Denies change in stool character Musc Denies abnormal gait, Denies limited range of motion, Denies muscle cramps, Denies muscle weakness, Denies numbness, Denies radiating pain into limb, Denies stiffness and Denies tingling Neuro Denies abnormal gait, Denies dizziness, Denies numbness and Denies tingling Endo Denies palpitations Physical Exam Vital Signs: Last Vital Signs Pulse 74 12/31/24 13:50 BP 100/52 L 12/31/24 13:50 BMI result Body Mass Index 24.7 Const General: cooperative, healthy appearing, comfortable and no acute distress Orientation/consciousness: patient oriented x3 Neck Neck: Yes normal visual inspection Resp Effort & Inspection: normal respiratory effort Auscultation: clear to auscultation bilaterally, no crackles, no rales, no rhonchi and no wheezes Cardio Rate: regular rate Rhythm: regular rhythm Heart sounds: S2 normal heart sound present (Faint), no gallops, Murmur heart sound present (Systolic) and no rubs Neuro General: patient oriented x3 Extrem General: Yes normal to inspection, No no pedal edema and No calf tenderness Psych Appearance: grossly normal Mental Status: mental status grossly normal Speech and movement: Normal speech and movement present Office Procedures EKG Details: Today, read by me, sinus rhythm, left axis deviation, anterior septal infarct, unchanged from prior rate 74, Qtc 430ms [id number], Complete Assessment & Plan Assessment & Plan (1) Coronary artery disease: Code(s): I25.10 - Atherosclerotic heart disease of [place] coronary artery without angina pectoris Category: Medical Plan: History of CAD with 3 vessel Coronary artery bypass grafting 2018. Previously followed by [facility], then document management specialist in [place]. Was seen once in our office 09/06/2022 and did not follow-up until today. She did undergo a cardiac catheterization 05/14/2023 with PCI to the vein graft from aorta left to OM1, patent DILLON to LAD, occluded graft to the RCA, patent proximal to mid RCA, stent with mild ISR, occluded ostial PDA stent. Last echocardiogram 05/15/2023 with EF 70%, mild asymmetrical septal hypertrophy. Currently reporting atypical left lateral vague chest discomfort. She does not appear fluid overloaded on exam. EKG today showing normal sinus rhythm, anterior septal Q-waves, rate 74. Mostly sedentary due to leg issues. Will update echocardiogram and plan to call her with results. Reviewed signs and symptoms of angina. Emergency care if needed for symptoms. Continue on Plavix, rosuvastatin with ideal LDL goal less than 70, metoprolol, Ranexa. Cardiology follow-up in 3 months, sooner if needed (2) Status post aorto-coronary artery bypass graft: Comment: 3 - 2018 Code(s): Z95.1 - Presence of aortocoronary bypass graft Category: Surgical Plan: As above (3) S/P cardiac catheterization: Comment: 05/14/2023, severe multivessel disease, patent DILLON to LAD, known occluded graft to RCA, patent proximal to mid RCA stent with mild ISR, occluded ostial PDA stent, severe disease in the vein touch down to OM, PCI to vein graft to OM, NIKOLAS placed Code(s): Z98.890 - Other specified postprocedural states Category: Surgical Plan: As above (4) Chest discomfort: Code(s): R07.89 - Other chest pain Category: Medical Plan: Atypical chest discomfort as above. (5) Peripheral vascular disease: Comment: 11/21/2024 - left SFA and popliteal stent placement Dr. Bingham at [facility] April 2024 - left lower extremity intervention in [place]. Multiple prior interventions apparently done every 6 months. Code(s): I73.9 - Peripheral vascular disease, unspecified Category: Medical Plan: She reports known history of peripheral vascular disease with prior angioplasties to each leg. Known occlusion to left femoral stent. She describes a recent angiogram on left leg. Follows with Dr. Chan. Continue Plavix and rosuvastatin/Zetia. (6) Murmur: Code(s): R01.1 - Cardiac murmur, unspecified Category: Medical Plan: Systolic Heart murmur noted on examination. Echocardiogram done 09/11/2022 does show a small LV OT gradient, increase with Valsalva, no obstruction, mild calcification of the aortic valve (7) Hypertension: Code(s): I10 - Essential (primary) hypertension Category: Medical Plan: Blood pressure goal less than 130/80. Currently well controlled. No med changes made at this time. (8) Diabetes: Code(s): E11.9 - Type 2 diabetes mellitus without complications Category: Medical Plan: Hemoglobin A1c goal less than 7. Follows with PCP. (9) Hyperlipidemia: Code(s): E78.5 - Hyperlipidemia, unspecified Category: Medical Plan: [place] LDL goal less than 70. Patient is on high-dose rosuvastatin. Labs done 08/06/2023 shows LDL 85. Continue rosuvastatin and Zetia. Recommended recheck of lipids at this time. Order placed. Plan Time spent on chart review, documentation, interview and assessment Orders: Orders CA echo transthoracic complete Today I25.10 - Atherosclerotic heart disease of [place] coronary artery without angina pectoris Lipid Panel Today I25.10 - Atherosclerotic heart disease of [place] coronary artery without angina pectoris Coding Level of Care Code Est Pt Level 4 (92697) Complex EM visit Add On G2211 Diagnoses Coronary artery disease I25.10 Status post aorto-coronary artery bypass graft Z95.1 S/P cardiac catheterization Z98.890 Chest discomfort R07.89 Peripheral vascular disease I73.9 Murmur R01.1 Hypertension I10 Diabetes E11.9 Hyperlipidemia E78.5 CPT Codes EKG - CPT: 41381-[id number], Complete ([id number]) Time Spent (min) 32
== END 2024-12-31 14:41 | disposition home or self-care (01) ==
LOC: HO.HCS 12:59
PROVIDERS: Visit Provider Nurse Practitioner Family
DX: I25.10 Atherosclerotic heart disease of native coronary artery without angina pectoris (principal); Z95.1 Presence of aortocoronary bypass graft; Z98.890 Other specified postprocedural states; R07.89 Other chest pain; I73.9 Peripheral vascular disease, unspecified; R01.1 Cardiac murmur, unspecified; I10 Essential (primary) hypertension; E11.8 Type 2 diabetes mellitus with unspecified complications; E78.5 Hyperlipidemia, unspecified; R94.31 Abnormal electrocardiogram [ECG] [EKG]
CPT/HCPCS: 93010; 99214; G2211

== ENCOUNTER → 2024-12-31 12:59 | Outpatient (BNVA) | payer MEDICARE, MEDICAID, SELFPAY | PROVIDERS: Visit Provider Nurse Practitioner Family | DX: E11.51 Type 2 diabetes mellitus with diabetic peripheral angiopathy without gangrene (principal); M79.604 Pain in right leg; I25.10 Atherosclerotic heart disease of native coronary artery without angina pectoris; I10 Essential (primary) hypertension; R01.1 Cardiac murmur, unspecified; R07.89 Other chest pain; Z98.890 Other specified postprocedural states; Z95.1 Presence of aortocoronary bypass graft; Z79.4 Long term (current) use of insulin; Z79.84 Long term (current) use of oral hypoglycemic drugs; Z79.891 Long term (current) use of opiate analgesic; Z79.899 Other long term (current) drug therapy | CPT/HCPCS: 93005; 99212 ==

== ENCOUNTER 2024-12-31 15:10 | Outpatient (AMB) | payer MEDICARE, MEDICAID, SELFPAY ==
--- NOTE | 2024-12-31 15:11 | MHC.OFFVIS ---
Vital Signs 12/31/24 15:13 Height 5 ft 1 in Weight 130 lb BMI 24.6 Intake Visit Reasons: Follow Up 12/23 Arterial Ultrasound Intake Note: follow up Arterial US 12/23/24, Right LE worse than the Left LE. States LE coldness. Doea have Left ankle break w/ complications. Had angio at [facility] for Left LE at the end of October/beginining of November 2024. Accompanied by: Daughter Allergies apple (Apple) Allergy (Unknown, Verified 12/31/24 15:20) APPLE PEEL - ITCHY THROAT nut - unspecified (nut) Allergy (Unknown, Verified 12/31/24 15:20) ITCHY THROAT pineapple (Pineapple) Allergy (Unknown, Verified 12/31/24 15:20) ITCHY THROAT acetaminophen (From Percocet) Allergy (Verified 12/31/24 15:20) Anxiety amoxicillin Allergy (Verified 12/31/24 15:20) Itching oxycodone (From Percocet) Allergy (Verified 12/31/24 15:20) Anxiety lim Adverse Reaction (Intermediate, Verified 12/31/24 15:20) Swelling DUST Allergy (Unknown, Uncoded 12/31/24 15:20) EYES, NOSE ITCHY - ASTHMA GRASS Allergy (Unknown, Uncoded 12/31/24 15:20) ITCHY EYES - THROAT pet dander Adverse Reaction (Mild, Uncoded 12/31/24 15:20) Itchy Eyes HPI Comments Details: Complex 64-year-old female presents for follow-up vascular evaluation. She was originally treated down in [place]. It appears that she was getting angiogram every 6 months down in [place]. Unclear what the reasoning behind that was. Most recently she had a fall and was in the ER. She was transferred to rehab facility and at that time she was noted to have an ischemic lower extremity. She subsequently was brought to [facility] and then transferred to [facility] in [place]. At that time she underwent endovascular intervention on 11/21/2024. She was then treated and currently is undergoing orthopedic care of her left lower extremity. She now presents to us for vascular evaluation [facility] Medical History Dizziness Orthostatic hypotension Stenosis of left vertebral artery CVA (cerebral vascular accident) Peripheral vascular disease Neuropathy Coronary artery disease Brain TIA Hypertension Diabetes Surgical History History of angioplasty of peripheral vessel Status post aorto-coronary artery bypass graft Family History Father Coronary artery disease involving coronary bypass graft Mother No problems noted. Social History Household Members: Family Household Members Other:: lives with brother Housing: Apartment Do you presently have visiting nurse or other home services: No Alcohol intake: never Patient Tobacco Use Status: Former Tobacco user Years Smoked: Remote smoking, quit in her 30s Second Hand Smoke Exposure: No service: No Current occupational status: unemployed Review of Systems Const All systems reviewed & are unremarkable except as noted in HPI and below Reports no additional complaints ENT Reports Normal hearing present Card Denies chest pain, Denies chest pain at rest, Denies chest pain with activity and Denies pedal edema Resp Denies cough GI Denies abdominal pain Musc Denies abnormal gait, Denies muscle cramps and Denies radiating pain into limb Skin/Breast Denies skin ulcer and Denies wounds Neuro Reports Normal hearing present and Denies abnormal gait Psych Reports no additional complaints Physical Exam Vital Signs: BMI result Body Mass Index 24.6 Const General: cooperative, healthy appearing and comfortable Orientation/consciousness: oriented to person, oriented to place and oriented to time HEENT Head: Yes normal to inspection Neck Neck: Yes normal visual inspection Carotids: no bruits Chest Chest palpation & inspection: normal inspection of the chest Resp Effort & Inspection: normal respiratory effort and able to speak in complete sentences Auscultation: clear to auscultation bilaterally, no crackles, no rales, no rhonchi and no wheezes Cardio Other: Bilateral DP signals Rate: regular rate Rhythm: regular rhythm Heart sounds: S1 normal heart sound present and S2 normal heart sound present Bruits: no carotid bruits Peripheral pulses: Peripheral pulses 2+ throughout GI Inspection: Yes normal to inspection Skin Wounds: no wounds Hair: normal Neuro General: oriented to person, oriented to place and oriented to time Cranial nerves: Yes CN's II-XII intact bilaterally and Yes Normal hearing present Cognition (Neuro): normal cognition Motor exam (neuro): 5/5 motor strength present throughout Extrem Other: venous exam: No significant superficial varicosities or spider telangiectasias, minimal edema General: No clubbing, No cyanosis and No edema Psych Appearance: grossly normal Mental Status: mental status grossly normal Speech and movement: Normal speech and movement present Results Reviewed Results Reviewed: Noninvasive testing dated 12/23/2024 demonstrates MIGUELITO on the right of 0.35 and on the left of 1.07 with all stents patent. Assessment & Plan Assessment & Plan (1) Peripheral vascular disease: Comment: 11/21/2024 - left SFA and popliteal stent placement Dr. Bingham at [facility] April 2024 - left lower extremity intervention in [place]. Multiple prior interventions apparently done every 6 months. Code(s): I73.9 - Peripheral vascular disease, unspecified Category: Medical Plan: In short patient has severe PA D. At the current time I would like to manage this as conservatively as possible to allow her left leg to heal. She will require right lower extremity intervention. I have taken the liberty of ordering pain management evaluation to better assist with the pain control of the right lower extremity. In addition we will order a CT angiogram in approximately 3 months time to see if that will better elucidate the location disease. Thank you for allowing us to assist in her care. If there are any questions or concerns please do not hesitate to contact us. (2) Leg pain: Code(s): M79.606 - Pain in leg, unspecified Category: Medical Qualifiers: Laterality: right Qualified Code(s): M79.604 - Pain in right leg Plan: Will refer to pain management Orders: Orders Creatinine 3 Months I73.9 - Peripheral vascular disease, unspecified CT angio abd aorta runoff 3 Months I73.9 - Peripheral vascular disease, unspecified Blood Urea Nitrogen 3 Months I73.9 - Peripheral vascular disease, unspecified Referrals Pain Management Referral I73.9 - Peripheral vascular disease, unspecified Coding Level of Care Code Est Pt Level 4 (30573) Complex EM visit Add On G2211 Diagnoses Peripheral vascular disease I73.9 Pain of right lower extremity M79.604 Laterality: right
[2024-12-31 15:13] VITALS: BMI 24.6
== END 2024-12-31 15:43 | disposition home or self-care (01) ==
LOC: HO.HVS 15:11
PROVIDERS: Visit Provider Surgery Vascular Surgery
DX: I73.9 Peripheral vascular disease, unspecified (principal); M79.604 Pain in right leg
CPT/HCPCS: 99214; G2211

== ENCOUNTER 2025-01-06 11:09 | Outpatient (REF) | payer MEDICARE, MEDICAID, SELFPAY ==
--- OUTSIDE RECORDS SUMMARY | 2025-01-07 12:04 | XMS_ITS | Patient Health Record ---
Author Organization [facility] Address [address] [place] [address] Care Team Providers Care Autocad Electrical Designer Name Role Phone Joanne Blankenship M.D Primary Care Provider Jesus Coleman Unavailable [phone] Allergies Allergen (clinical drug ingredient) Drug/Non Drug [...] day; Duration: 4 day(s) 05/08/2019 Unknown Nystop 841172 UNIT/GM 1 application Externally Unknown Clarithromycin 500 [...] Problem Status W/U Status Risk Notes Problem Callosity ([id number]) Corns and callosities (L84) Active confirmed Plan Of Treatment No Information Insurance Providers Payer Name Payer Address Payer Phone Subscriber Number Group Number Insured Name Patient Relationship to Insured Coverage Start Date Coverage End Date [employer] [address] [address] [place] [address] [id number] Vee Parisi Self - patient is the insured Medical (General) History Medical History History ICD Code Gastroesphageal Reflux Anxiety Disorder Other sleep issue Heart Disease Depression Coronary Artery Disease High Blood pressure Peripheral Arterial Disease High Cholesterol Heart Problems Back pain Heart Attack ([place]) Allergies Surgical History Surgery Date(Month/Year) Cardiac Catheterization 07/2016 Peripheral Artery intervention 01/2018 Cardiac Catheterization 01/2016 Cardiac Catheterization 12/2015 Cardiac Catheterization 06/2015 Vascular surgery 03/2015 Stent Placement Breast Surgery Carpal Tunnel Surgery Heart Surgery
--- OUTSIDE RECORDS SUMMARY | 2025-01-07 12:04 | XMS_ITS | Patient Health Record ---
[facility] Address [address] [facility] [place] [address] Care Team Providers Care Conveyor Mechanic Name Role Phone Torsten Maria R Primary Care Provider Unavailab Willian Warren Unavailable [phone] Allergies Allergen (clinical drug ingredient) Drug/Non Drug [...] Problem Acquired hammer toe of right foot (58447948380781 05) Other hammer toe(s) (acquired), right foot (M20.41) Active confirmed Problem Type 2 diabetes mellitus with peripheral angiopathy (799440158) Type 2 diabetes mellitus with diabetic peripheral angiopathy without gangrene (E11.51) Active confirmed Problem Other hammer toe(s) (acquired), left foot (M20.42) Active confirmed Plan Of Treatment Pending Test Test Name Order Date [id number] NAIL, 6 OR MORE 11/26/2022 [id number] NAIL, 6 OR MORE 02/25/2023 [id number] Plate 02/25/2023 [id number] Plate 11/26/2022 [id number] SKIN LESIONS, 2 TO 4 11/27/19 [id number] SKIN LESIONS, 2 TO 4 02/26/20 Insurance Providers Payer Name Payer Address Payer Phone Subscriber Number Group Number Insured Name Patient Relationship to Insured Coverage Start Date Coverage End Date BlueCare 65 Medicare Preferred [address] [place] [address] [phone] [id number] Vee Parisi Self - patient is [...] Hand Surgery tooth Hospitalization History Reason Date(Month/Year[place] [facility] [place]
--- OUTSIDE RECORDS SUMMARY | 2025-01-07 12:04 | XMS_ITS | Encounter Summary ---
Author Organization [facility] Address [address] [place] [address] Phone Care Team Providers Care Auto Fleet Maintenance Manager Name Role Phone Kelsey Tamayo MD Primary Care Provider [phone] Maria R Sarmiento MD Primary Care Provider Encounter Details Date Type Department Care Team (Late st Contact Info) Description 11/17/2024 Procedure Pass [facility], Ct Scan - [address] [address] Social History Tobacco Use Types Packs/Day Years Used Date Smoking Tobacco: Former Cigarettes Smokeless Tobacco: Never Alcohol Use Standard Drinks/Week Comments Not Currently 0 (1 standard drink = 0.6 oz pur e alcohol) Education Answer Date Recorded Are you interested in more education? Not on maryjane e 10/29/2024 Are you concerned about learning? Not on file 10/29/2024 No 10/29/2024 No 10/29/2024 Food Answer Date Recorded Within the past 6 months we worried whether our food would run out before we got money to buy more. Never True 11/17/2024 Within the past 6 months the food we bought just didn't last and we didn't have enough money to get more. Never True Residential Stability Answer Date Recor ded What is your housing situation today? I have tamir sing 11/17/2024 How many times have you move d in the past 12 months? Zero (I did not move) 11/17/2024 Paying for Meds Answer Date Recorded Do you have trouble paying for medicines? No 11/17/2024 Paying Utility Bills Answer Date Record ed Do you have trouble paying your heating or elect ricity bill? No 11/17/2024 Transportation Answer Date Recorded Has the lack of transportati on kept you from medical appointments or from getting medications? No 11/17/2024 Digital Access Answer Date Recorded No 11/17/2024 Yes 11/17/2024 Do you have reliable internet access at home? Ye s 11/17/2024 Do you have a device (e.g., phone, tablet, computer) with a working camera? Yes 11/17/2024 Intimate Partner Violence Answer Date R ecorded Are you denied basic needs s uch as food, clothing, or medical care? No 11/17/2024 In the past 12 months have y ou been in a relationship with a person who hurts, threatens, or tries to control you? No 11/17/2024 Are you denied basic needs s uch as food, clothing, or medical care? No 11/17/2024 In the past 12 months have y ou been in a relationship with a person who hurts, threatens, or tries to control you? No 11/17/2024 Comments Unknown Sex and Gender Information Value Date Recorded Sex Assigned at Female 11/17/2024 3:05 AM EDT Legal Sex Female 10:34 PM EDT Gender Identity Female 11/17/2024 3:05 AM EDT Sexual Orientation Don't know 11/17/2024 3: 05 AM EDT documented as of this encounter Functional Status * Calculated C-SSRS Risk Score (Lifetime/Recent) Answer Date of Assessment Author No Risk Indicated 11/17/2024 6:00 PM EDT Kizzy Fang RN * [place] Suicide Severity Rating Scale (Screener/Recent Self-Report) Question Answer Date of Assessment Author 1. Wish to be (Past 1 Month) No 025 6:00 PM EDT Kizzy Fang, NESHA 2. Non-Specific Active Suici kati Thoughts (Past 1 Month) No 11/17/2024 6:00 PM EDT Kizzy Fang , NESHA 6. Suicidal Behavior (Lifetime) No 6:00 PM EDT Kizzy Fang, RN documented as of this encounter Plan of Treatment Upcoming Encounters Date Type Department Care Team (Late st Contact Info) Description 01/07/2025 1:30 PM EDT Home Care Visit [facility] [address] [place] [address] Lizandro Stephens, OT [address] [place] [address] [email or web address] 01/07/2025 2:00 PM EDT Home Care Visit [facility] [address] [place] [address] Lizandro Nix, CCC-COMPO CONVEYOR OPERATOR [address] [place] [address] 01/08/2025 12:45 PM EDT Home Care Visit [facility] [address] [place] [address] Gissell Ocasio, JEWELRY BENCH WORKER [address] [place] [address] 01/11/2025 1:30 AM EDT Home Care Visit [facility] [address] [place] [address] Lizandro Nix, CCC-COMPO CONVEYOR OPERATOR [address] [place] [address] 01/12/2025 1:00 PM EDT Home Care Visit [facility] [address] [place] [address] Lizzie Guzman, PT [address] [place] [address] 01/13/2025 1:30 AM EDT Home Care Visit [facility] [address] [place] [address] Lizandro Nix, CCC-COMPO CONVEYOR OPERATOR [address] [place] [address] 01/13/2025 10:30 AM EDT Home Care Visit [facility] [address] [place] [address] Lizandro Stephens, OT [address] [place] [address] [email or web address] 01/18/2025 12:45 AM EDT Home Care Visit [facility] [address] [place] [phone] Lizandro Nix, [facility]-COMPO CONVEYOR OPERATOR [address] [place] [address] 01/20/2025 Home Care Visit [facility] [address] [place] [address] Lizzie Guzman, PT [address] [place] [address] 01/20/2025 12:45 AM EDT Home Care [facility] [address] [place] [phone] Lizandro Nix, [facility]-COMPO CONVEYOR OPERATOR [address] [place] [address] documented as of this encounter Visit Diagnoses Not on filedocumented in this encounter Additional Health Concerns Infection Onset Date Last Indicated Resolved Time 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 It is not the complete legal health record.[facility]
--- OUTSIDE RECORDS SUMMARY | 2025-01-07 12:04 | XMS_ITS | Encounter Summary ---
Author Organization [employer] Address [address] [place] [address] Care Team Providers Care O And M Supervisor Name Role Phone Unavailable Primary Care Provider [...]
== END 2025-01-06 11:10 | disposition home or self-care (01) ==
LOC: HO.HOSX 11:09
PROVIDERS: Visit Provider Physician Assistant
DX: Z13.89 Encounter for screening for other disorder (principal)

== ENCOUNTER → 2025-01-27 07:00 | Outpatient (BNV) | payer MEDICARE, MEDICAID, SELFPAY | PROVIDERS: Emergency Provider Emergency Medicine; PCP Internal Medicine; Visit Provider Radiology Body Imaging | DX: M79.661 Pain in right lower leg (principal); M79.662 Pain in left lower leg; R53.1 Weakness; J90 Pleural effusion, not elsewhere classified | CPT/HCPCS: 71045; 93970 ==

== ENCOUNTER 2025-01-27 07:09 | Inpatient (IN) | payer MEDICARE, MEDICAID, SELFPAY ==
--- NOTE | 2025-01-27 | ECG_ITS ---
Test Reason : ELEVATED TROPONIN Blood Pressure : */* mmHG Vent. Rate : 67 BPM Atrial Rate : 67 BPM P-R Int : 170 ms QRS Dur : 88 ms QT Int : 410 ms P-R-T Axes : 60 -33 159 degrees QTcB Int : 433 ms Normal sinus rhythm Left axis deviation Anterior infarct (cited on or before 13-May-2022) Abnormal ECG When compared with ECG of 27-Jan-2025 07:15, Nonspecific T wave abnormality now evident in Anterior leads Referred By: Maria Teresa Kruger Electronically Signed By: Dexter Le
--- NOTE | 2025-01-27 | ECG_ITS ---
Test Reason : chest pain Blood Pressure : */* mmHG Vent. Rate : 80 BPM Atrial Rate : 80 BPM P-R Int : 170 ms QRS Dur : 86 ms QT Int : 408 ms P-R-T Axes : 50 -60 130 degrees QTcB Int : 470 ms Normal sinus rhythm Left axis deviation Inferior infarct (cited on or before 13-May-2022) Anteroseptal infarct (cited on or before 13-May-2022) ST & T wave abnormality, consider lateral ischemia Abnormal ECG When compared with ECG of 15-Sep-2023 21:57, T wave inversion now evident in Lateral leads Referred By: Generic ED Physician Electronically Signed By: Dexter Le
--- NOTE | ~2025-01-27 | XR_ITS ---
EXAMINATION: XR CHEST CLINICAL INFORMATION: CP COMPARISON: Chest radiograph on September 15, 2023 TECHNIQUE: Frontal view of the chest was obtained. FINDINGS: Lungs: No focal consolidation. Minimal prominence of the interstitial lung markings. Pleura: No pneumothorax. Small bilateral pleural effusions, left greater than right. Mediastinum: Evidence of previous coronary surgery. No enlargement of the cardiac silhouette. No abnormal widening of the mediastinum. Bones: Previous median sternotomy. XR/XR chest 1V IMPRESSION: Small bilateral pleural effusions. Mild prominence of the interstitial lung markings, which is appropriate clinical setting could represent mild interstitial pulmonary edema or fluid overload. Electronically signed by: Vilma Davis MD 01/27/2025 08:23 AM EDT
--- NOTE | ~2025-01-27 | XR_ITS ---
CLINICAL HISTORY: Severe pain 3 view right foot Comparison: None provided Findings: Bones intact. No dislocations. Mild degenerative changes in the midfoot. Calcaneal enthesophytes. No ankle effusion. No radiopaque foreign body. IMPRESSION: 1. No acute findings. This document has been electronically signed by: Muna Hair MD on 01/30/2025 19:43:19
--- NOTE | ~2025-01-27 | XR_ITS ---
EXAMINATION: XR CHEST 1 VIEW HISTORY: CHF COMPARISON: Comparison is made with the prior examination dated 01/27/2025. FINDINGS: A single AP portable view of the chest performed at 2:58 PM is submitted. There are low lung volumes. There is prominence of the pulmonary vasculature, consistent with congestion. There are small bilateral pleural effusions. There is no pneumothorax. The heart is top normal in size. The patient is status post median sternotomy and CABG. There is degenerative disc disease of the spine. XR/XR chest 1V IMPRESSION: Borderline cardiomegaly. Pulmonary vascular congestion and small bilateral pleural effusions. Electronically signed by: Sanjay Bonilla MD 01/28/2025 03:09 PM EDT
--- NOTE | ~2025-01-27 | US_ITS ---
EXAMINATION: US LOWER EXTREMITY VEINS BILATERAL CLINICAL INFORMATION: Reason for Exam-history of DVT, pain/weakness in B/L legs COMPARISON: None available. TECHNIQUE: Color-flow triplex imaging with spectral analysis and compression Doppler were performed on the bilateral lower extremities. FINDINGS: Partially limited examination due to patient unable to stay still and constantly moving legs. Respiratory variation, normal compression and augmented flow are noted throughout the bilateral lower extremities. The visualized common femoral vein, femoral vein, profunda femoral vein, popliteal vein and midcalf peroneal and posterior tibial venous segments show no evidence of deep venous thrombosis bilaterally. US/US venous duplex LE BI IMPRESSION: No evidence of deep venous thrombosis involving the right or left lower extremities. Electronically signed by: Vilma Davis MD 01/27/2025 11:10 AM EDT
[2025-01-27 07:16] VITALS: BP 104/78; BP 197/71; PULSE 72; PULSE 80; RESP 22; TEMP 36.4; O2SAT 97; O2SAT 98; BMI 25.4
[2025-01-27 07:44] LABS: MANUAL DIFF FLAG NO
[2025-01-27 07:49] LABS: Imm Gran Abs Auto 0.04 X10*3/uL (0.00-0.03); Imm Gran Pct Auto 0.4 % (0.0-0.4); Lymphocytes Absolute Auto 2.1 X10*3/uL (1.2-4.9); Mean Corpuscular HGB Conc 30.9 g/dl (31.0-35.0); Mean Corpuscular Hemoglobin 23.3 pg (27.0-33.0); Mean Corpuscular Volume 75.5 fL (80.0-98.0); NRBC Abs Auto 0.040 X10*3/uL (0.0-0.012); NRBC Pct Auto 0.4 /100WBC (0.0-0.2); Platelet Count 370 X10*3/uL (160-400); Red Blood Count 2.53 X10*6/uL (4.20-5.50); White Blood Count 9.8 X10*3/uL (4.8-10.8)
[2025-01-27 07:54] LABS: INTERNATIONAL NORM RATIO 1.4 (0.9-1.1); Prothrombin Time 15.7 SEC (10.9-12.4)
--- NOTE | 2025-01-27 07:58 | ED.CHESTPAIN ---
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 Patient states chest pain started this morning while she was lying down watching TV states that it is substernal, radiating under bilateral breasts, associated with shortness of breath during moments of maximal chest pain. Patient states she was nauseous and vomited twice this morning, denies blood in the vomit. Patient reports she has had 3 days of watery dark brown diarrhea with approximately 3-4 episodes per day. Patient also states she has bilateral leg heaviness and pain and is concerned she has a DVT but due to chronic femoral artery occlusion. Patient denies recent illness, cough, orthopnea, abdominal pain, headaches, visual changes Related Data Home Medications ?Medication ?Instructions ?Recorded ?Confirmed fluticasone propionate 50 1 spray intranasal DAILY PRN 08/12/22 12/31/24 mcg/actuation nasal Allergy Symptoms spray,suspension duloxetine 60 mg capsule,delayed 60 mg PO DAILY 09/06/22 12/31/24 release ezetimibe 10 mg tablet 10 mg PO BEDTIME 09/06/22 12/31/24 metformin 1,000 mg tablet 1,000 mg PO BIDWM 09/06/22 12/31/24 ranolazine 1,000 mg 1,000 mg PO BID 09/06/22 12/31/24 tablet,extended release,12 hr insulin aspart U-100 100 unit/mL See Protocol subcut USEASDIRECTD 03/27/23 12/31/24 (3 mL) subcutaneous pen (Novolog FlexPen U-100 Insulin aspart) insulin degludec 100 unit/mL 25 unit subcut BEDTIME 03/27/23 12/31/24 subcutaneous solution (Tresiba U-100 Insulin) rosuvastatin 40 mg tablet 40 mg PO DAILY 03/28/23 12/31/24 ergocalciferol (vitamin D2) 1,250 1,250 mcg PO TU@0900 10/17/24 12/31/24 mcg (50,000 unit) capsule metoprolol succinate 100 mg 100 mg PO BEDTIME 10/17/24 12/31/24 tablet,extended release 24 hr hydromorphone 2 mg tablet mg PO 12/14/24 12/31/24 gabapentin 600 mg tablet 300 mg PO TID 12/31/24 12/31/24 pantoprazole 40 mg tablet,delayed 40 mg PO DAILY 12/31/24 12/31/24 release apixaban 2.5 mg tablet (Eliquis) 2.5 mg PO BID 01/27/25 aspirin 81 mg chewable tablet 1 tab PO DAILY 01/27/25 betamethasone dipropionate 0.05 % appl topical BID 01/27/25 topical cream gabapentin 100 mg capsule 200 mg PO TID 01/27/25 lisinopril 20 mg tablet 20 mg PO DAILY 01/27/25 Previous Rx's ?Medication ?Instructions ?Recorded clopidogrel 75 mg tablet 75 mg PO DAILY #30 tabs 05/13/23 Allergies Allergy/AdvReac Type Severity Reaction Status Date / Time apple (Apple) Allergy Unknown APPLE PEEL Verified 01/27/25 07:21 - ITCHY THROAT nut - unspecified (nut) Allergy Unknown ITCHY Verified 01/27/25 07:21 THROAT pineapple (Pineapple) Allergy Unknown ITCHY Verified 01/27/25 07:21 THROAT acetaminophen (From Percocet) Allergy Anxiety Verified 01/27/25 07:21 amoxicillin Allergy Itching Verified 01/27/25 07:21 oxycodone (From Percocet) Allergy Anxiety Verified 01/27/25 07:21 lim AdvReac Intermediate Swelling Verified 01/27/25 07:21 DUST Allergy Unknown EYES, NOSE Uncoded 01/27/25 07:21 ITCHY - ASTHMA GRASS Allergy Unknown ITCHY EYES Uncoded 01/27/25 07:21 - THROAT pet dander AdvReac Mild Itchy Eyes Uncoded 01/27/25 07:21 Review of Systems Review of Systems: CONST: Negative for fever, body aches and chills. HENT: Negative for neck pain/stiffness, headache, congestion, sore throat, swelling. EYES: Negative for discharge/pain or vision changes. RESP: Negative for cough/hemoptysis and shortness of breath. POS SOB CV: POS chest pain ABD: Negative pain. POS nausea, vomiting : Negative increase frequency, dysuria, blood in urine or stool. MUSC: Negative for muscle aches, edema. SKIN: Negative rash, lesions/sores. NEURO: Negative headache, dizziness, weakness. Yes all other systems are reviewed and are negative [facility] Past Medical History Attestation statement: The following information was validated with the patient. Source: old records reviewed, obtained from family (Daughter at bedside corroborating history) and nursing notes reviewed Medical History Dizziness Orthostatic hypotension Stenosis of left vertebral artery CVA (cerebral vascular accident) Peripheral vascular disease Neuropathy Coronary artery disease Brain TIA Hypertension Diabetes Surgical History History of angioplasty of peripheral vessel Status post aorto-coronary artery bypass graft Family History Family History Father Coronary artery disease involving coronary bypass graft Mother No problems noted. Social History Social History Household Members: Family Household Members Other:: lives with brother Housing: Apartment Do you presently have visiting nurse or other home services: No Alcohol intake: never Patient Tobacco Use Status: Former Tobacco user Years Smoked: Remote smoking, quit in her 30s Second Hand Smoke Exposure: No Advance Directives: No Advance Directives Information Provided: Yes Nutrition Risks: No Nutritional Risk service: No Current occupational status: unemployed Physical Exam Vital Signs: Vital Signs: Last Vital Signs Temp 97.8 F 01/27/25 15:33 Pulse 67 01/27/25 15:33 Resp 20 01/27/25 15:33 BP 125/47 L 01/27/25 15:33 Pulse Ox 98 01/27/25 15:33 O2 Del Method Room Air 01/27/25 15:33 BMI result Body Mass Index 25.4 GENERAL APPEARANCE: ?AxOx4, patient very anxious, in mild distress due to chest pain HEENT: ?NC, AT. MMM. EOMI, clear conjunctiva, oropharynx clear. NECK: ?Supple without lymphadenopathy.? No stiffness or restricted ROM. HEART:? Normal rate and regular rhythm, normal S1/S2, no m/r/g LUNGS:? CTAB, moving air well. No crackles or wheezes are heard. ABDOMEN: ?Soft, nontender, nondistended with good bowel sounds heard. BACK: No CVAT, no obvious deformity. EXTREMITIES: ?Without cyanosis, clubbing or edema. NEUROLOGICAL: ?Grossly nonfocal. Alert and oriented, moving all 4 extremities. Observed to ambulate with normal gait. Skin: ?Warm and dry without any rash. Medications Administered Generic Name Dose Route Start Last Admin Trade Name Freq PRN Reason Stop Dose Admin Lactated Ringer's 1,000 mls @ 100 mls/hr 01/27/25 14:30 01/27/25 15:32 Lr IVCONT 100 mls/hr .Q10H AILIN Administration Iron Sucrose 200 mg/ Sodium 110 mls @ 440 mls/hr 01/27/25 16:07 01/27/25 16:53 Chloride IV 01/30/25 16:06 Infused DAILY AILIN Infusion Insulin Human Lispro 0 unit 01/27/25 16:30 01/27/25 17:49 Insulin Lispro 100 Unit/Ml 3 Ml Vial SUBCUT Not Given QIDACHS [facility] Protocol Pantoprazole Sodium 40 mg 01/27/25 16:30 01/27/25 17:24 Pantoprazole Sodium 40 Mg/10 Ml Vial IVPUSH 40 mg BID@0630,1630 AILIN Administration Sodium Chloride 3 ml 01/27/25 16:00 01/27/25 16:59 0.9 % Sodium Chloride Flush 3 Ml Syringe IVFLUSH Not Given QSHIFT AILIN Discontinued Medications Generic Name Dose Route Start Last Admin Trade Name Freq PRN Reason Stop Dose Admin Lorazepam 1 mg 01/27/25 08:28 01/27/25 08:48 Lorazepam 1 Mg Tablet PO 01/27/25 08:29 1 mg ONCE ONE Administration Pantoprazole Sodium 40 mg 01/27/25 09:50 01/27/25 11:27 Pantoprazole Sodium 40 Mg/10 Ml Vial IVPUSH 01/27/25 09:51 40 mg ONCE ONE Administration Medical Decision Making Medical Decision Making MDM Narrative: 64-year-old female with medical history of HTN, T2DM, 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 Patient states chest pain started this morning while she was lying down watching TV states that it is substernal, radiating under bilateral breasts, associated with shortness of breath during moments of maximal chest pain. Patient states she was nauseous and vomited twice this morning, denies blood in the vomit. Patient reports she has had 3 days of watery dark brown diarrhea with approximately 3-4 episodes per day. Patient also states she has bilateral leg heaviness and pain and is concerned she has a DVT but due to chronic femoral artery occlusion. EKG reveals normal sinus rhythm, with left axis deviation, new T-wave abnormality when compared to prior initial troponin elevated at 50.2, repeat troponin with positive delta of 107.5 Labs without leukocytosis, H and H critically low with a hemoglobin of 5.9, hematocrit of 19.1.--> patient refusing blood transfusion due to her orthodox beliefs of Alevism, I spoke with lithopone mill worker Dr. Rivera who recommended Procrit as an alternative to transfusion for the patient. Occult stool blood positive, I spoke with Net Programmer Analyst Dr. Cordero who recommended scope to be done for further evaluation. CXR with small B/L pleural effusions. U/S Doppler B/L LE negative for DVT. Patient with anxiety, being medicated with 1 mg Ativan, 40 mg pantoprazole for possible GI bleed Patient being admitted to medicine with microcytic anemia and further evaluation with GI. Differential Diagnosis Differential Diagnoses: The differential diagnosis associated with the presentation includes ACS Electrolyte abnormality Dysrhythmia Upper GI bleed UTI DVT Admission/Observation Consideration of admission/observation: Escalation of care including admission/observation considered Consult Healthcare Provider Management of the patient was discussed with: Hospitalist (Dr. Rachel) and Database Marketing Analyst (Dr. Cordero, Dr. Rivera ) Lab Data MDM Lab Attestation statement: I reviewed the patient's lab results. 01/27/25 15:19 01/27/25 07:37 Labs: Lab Results 01/27/25 01/27/25 01/27/25 Range/Units 07:37 09:03 11:15 WBC 9.8 (4.8-10.8) X10*3/uL RBC 2.53 L D (4.20-5.50) X10*6/uL Hgb 5.9 L* D (12.0-16.0) g/dl Hct 19.1 L* D (37.0-47.0) % MCV 75.5 L (80.0-98.0) fL MCH 23.3 L (27.0-33.0) pg MCHC 30.9 L (31.0-35.0) g/dl RDW 17.5 H (11.0-16.0) % Plt Count 370 D (160-400) X10*3/uL MPV 12.3 (9.4-12.3) fL Immature Gran % (Auto) 0.4 (0.0-0.4) % Neut % (Auto) 69.2 (45-73) % Lymph % (Auto) 21.0 (20-40) % [place] % (Auto) 7.8 (2-11) % Eos % (Auto) 1.2 (0-4) % Baso % (Auto) 0.4 (0-2) % Lymph # (Auto) 2.1 (1.2-4.9) X10*3/uL [place] # (Auto) 0.8 (0.1-1.2) X10*3/uL Eos # (Auto) 0.1 (0.0-0.4) X10*3/uL Baso # (Auto) 0.0 (0.0-0.2) X10*3/uL Abs Immat Gran (auto) 0.04 H (0.00-0.03) X10*3/uL Absolute Neuts (auto) 6.8 (2.0-8.3) x10*3/uL Absolute Nucleated RBC 0.040 H (0.0-0.012) X10*3/uL Nucleated RBC % (auto) 0.4 H (0.0-0.2) /100WBC Absolute Retic 0.041 (0.026-0.095) X10*6/uL Percent Retic 1.8 (0.5-1.8) % Immature Retic Fraction 11.7 (3.0-15.9) % Retic Hgb Equivalent 17.0 L (30.0-35.0) pg PT 15.7 H D (10.9-12.4) SEC INR 1.4 H (0.9-1.1) Sodium 138 (135-145) mmol/L Potassium 5.0 (3.3-5.1) mmol/L Chloride 108 (96-108) mmol/L Carbon Dioxide 18 L (22-29) mmol/L Anion Gap 17 (12-20) BUN 25 H (9-16) mg/dL Creatinine 1.09 (0.5-1.4) mg/dL Estim Creat Clear Calc 49.0 Estimated GFR 51 POC Glucose (60-115) mg/dL Random Glucose 250 H (60-115) mg/dL Calcium 8.8 (8.4-10.2) mg/dL Magnesium 1.7 (1.6-2.6) mg/dL Iron 19 L (30-160) mcg/dL TIBC 316 (228-428) mcg/dL % Saturation 6 L (15-50) % Unsat Iron Binding 297 ug/dL Total Bilirubin 0.2 (0.0-1.0) mg/dL AST 90 H (5-31) U/L ALT 72 H (0-31) U/L Alkaline Phosphatase 33 L (39-117) U/L Lactate Dehydrogenase 210 (122-220) U/L Troponin I High Sens 50.2 H* D 107.5 H* D (<3.5-17.0) ng/L Total Protein 6.6 (6.5-8.0) g/dL Albumin 3.8 (3.5-5.0) g/dL Vitamin B12 287 (200-900) pg/mL Folate 10.6 (> or = 4.0) ng/mL Urine Color Urine Appearance Urine pH (5.0-9.0) Ur Specific [place] (1.005-1.025) Urine Protein (Neg-Trace) mg/dL Urine Glucose (UA) (Negative) mg/dL Urine Ketones (Negative) mg/dL Urine Blood (Negative) Urine Nitrite (Negative) Ur Leukocyte Esterase (Negative) Urine RBC (0-2) /HPF Urine WBC (0-5) /HPF Ur Squamous Epith Cells (0-2) /HPF Urine Bacteria (None Seen) Hyaline Casts (0-2) /LPF Stool Occult Blood POSITIVE (NEGATIVE) Influenza Type A (PCR) NEGATIVE (Negative) Influenza Type B (PCR) NEGATIVE (Negative) RSV RNA Qual (PCR) NEGATIVE (Negative) SARS-CoV-2 RNA (RT-PCR) NEGATIVE (Negative) 01/27/25 01/27/25 Range/Units 11:27 12:54 WBC (4.8-10.8) X10*3/uL RBC (4.20-5.50) X10*6/uL Hgb (12.0-16.0) g/dl Hct (37.0-47.0) % MCV (80.0-98.0) fL MCH (27.0-33.0) pg MCHC (31.0-35.0) g/dl RDW (11.0-16.0) % Plt Count (160-400) X10*3/uL MPV (9.4-12.3) fL Immature Gran % (Auto) (0.0-0.4) % Neut % (Auto) (45-73) % Lymph % (Auto) (20-40) % [place] % (Auto) (2-11) % Eos % (Auto) (0-4) % Baso % (Auto) (0-2) % Lymph # (Auto) (1.2-4.9) X10*3/uL [place] # (Auto) (0.1-1.2) X10*3/uL Eos # (Auto) (0.0-0.4) X10*3/uL Baso # (Auto) (0.0-0.2) X10*3/uL Abs Immat Gran (auto) (0.00-0.03) X10*3/uL Absolute Neuts (auto) (2.0-8.3) x10*3/uL Absolute Nucleated RBC (0.0-0.012) X10*3/uL Nucleated RBC % (auto) (0.0-0.2) /100WBC Absolute Retic (0.026-0.095) X10*6/uL Percent Retic (0.5-1.8) % Immature Retic Fraction (3.0-15.9) % Retic Hgb Equivalent (30.0-35.0) pg PT (10.9-12.4) SEC INR (0.9-1.1) Sodium (135-145) mmol/L Potassium (3.3-5.1) mmol/L Chloride (96-108) mmol/L Carbon Dioxide (22-29) mmol/L Anion Gap (12-20) BUN (9-16) mg/dL Creatinine (0.5-1.4) mg/dL Estim Creat Clear Calc Estimated GFR POC Glucose 125 H (60-115) mg/dL Random Glucose (60-115) mg/dL Calcium (8.4-10.2) mg/dL Magnesium (1.6-2.6) mg/dL Iron (30-160) mcg/dL TIBC (228-428) mcg/dL % Saturation (15-50) % Unsat Iron Binding ug/dL Total Bilirubin (0.0-1.0) mg/dL AST (5-31) U/L ALT (0-31) U/L Alkaline Phosphatase (39-117) U/L Lactate Dehydrogenase (122-220) U/L Troponin I High Sens (<3.5-17.0) ng/L Total Protein (6.5-8.0) g/dL Albumin (3.5-5.0) g/dL Vitamin B12 (200-900) pg/mL Folate (> or = 4.0) ng/mL Urine Color Yellow Urine Appearance Clear Urine pH 5.5 (5.0-9.0) Ur Specific [place] 1.015 (1.005-1.025) Urine Protein Trace (Neg-Trace) mg/dL Urine Glucose (UA) Negative (Negative) mg/dL Urine Ketones Negative (Negative) mg/dL Urine Blood Negative (Negative) Urine Nitrite Negative (Negative) Ur Leukocyte Esterase Moderate (2+) H (Negative) Urine RBC 0-2 (0-2) /HPF Urine WBC 21-50 H (0-5) /HPF Ur Squamous Epith Cells 6-10 (0-2) /HPF Urine Bacteria 1+ (None Seen) Hyaline Casts 0-2 (0-2) /LPF Stool Occult Blood (NEGATIVE) Influenza Type A (PCR) (Negative) Influenza Type B (PCR) (Negative) RSV RNA Qual (PCR) (Negative) SARS-CoV-2 RNA (RT-PCR) (Negative) Independent Interpretation I performed an independent interpretation of an: EKG Interpretation: I personally interpreted the EKG Vent. Rate : 80 BPM Atrial Rate : 80 BPM P-R Int : 170 ms QRS Dur : 86 ms QT Int : 408 ms P-R-T Axes : 50 -60 130 degrees QTcB Int : 470 ms Normal sinus rhythm Left axis deviation Inferior infarct (cited on or before 13-May-2022) Anteroseptal infarct (cited on or before 13-May-2022) ST & T wave abnormality, consider lateral ischemia Abnormal ECG When compared with ECG of 15-Sep-2023 21:57, T wave inversion now evident in Lateral leads Radiology Impression Discussion of test interpretation with radiology: I have reviewed the radiologist's reading. Radiologist Impression: U/S Doppler B/L LE FINDINGS: Partially limited examination due to patient unable to stay still and constantly moving legs. Respiratory variation, normal compression and augmented flow are noted throughout the bilateral lower extremities. The visualized common femoral vein, femoral vein, profunda femoral vein, popliteal vein and midcalf peroneal and posterior tibial venous segments show no evidence of deep venous thrombosis bilaterally. US/US venous duplex LE BI IMPRESSION: No evidence of deep venous thrombosis involving the right or left lower extremities. Electronically signed by: Vilma Davis MD 01/27/2025 11:10 AM EDT RP Dictated By: Vilma Davis MD Signed By: <Electronically signed by Vilma Davis MD in OV> 01/27/25 1110 CXR FINDINGS: Lungs: No focal consolidation. Minimal prominence of the interstitial lung markings. Pleura: No pneumothorax. Small bilateral pleural effusions, left greater than right. Mediastinum: Evidence of previous coronary surgery. No enlargement of the cardiac silhouette. No abnormal widening of the mediastinum. Bones: Previous median sternotomy. XR/XR chest 1V IMPRESSION: Small bilateral pleural effusions. Mild prominence of the interstitial lung markings, which is appropriate clinical setting could represent mild interstitial pulmonary edema or fluid overload. Electronically signed by: Vilma Davis MD 01/27/2025 08:23 AM EDT RP Dictated By: Vilma Davis MD Signed By: <Electronically signed by Vilma Davis MD in OV> 01/27/25 0823 External Record Review External record reviewed: Inpatient record, Office record and Outpatient record Critical Care Time Critical Care Time Critical Care Time: Yes Total Critical Care Time: 96 Attestation: I personally provided 96 minutes of critical care time exclusive of separately billable procedures, family discussion sudden related to decision-making, and teaching time. Patient was critically ill with a high probability of imminent or life-threatening deterioration due to severe anemia. Requiring frequent monitoring, discussion with consultants, discussion with patient and her scientology due to orthodox beliefs and evaluation for possible GI bleed. Discharge Plan Discharge Clinical Impression: Anemia Patient Disposition: Admitted As Inpatient
[2025-01-27 08:00] LABS: Hematocrit 19.1 % (37.0-47.0); Hemoglobin 5.9 g/dl (12.0-16.0)
--- OUTSIDE RECORDS SUMMARY | 2025-01-27 08:04 | XMS_ITS | Encounter Summary ---
Author Organization [facility] Address [address] [place] [address] Phone Care Team Providers Care Belt Changer Name Role Phone Kelsey Tamayo MD Primary Care Provider [phone] Maria R Sarmiento MD Primary Care Provider Encounter Details Date Type Department Care Team (Late st Contact Info) Description 11/17/2024 Procedure Pass , Ct Scan - [address] [address] Social History Tobacco Use Types Packs/Day Years [...] 6:00 PM EDT Kizzy Fang RN * [place] Suicide Severity Rating Scale (Screener/Recent Self-Report) Question [...] Care Team (Late st Contact Info) Description 02/01/2025 Home Care Visit [facility] [address] [place] [address] Lizandro Nix, [facility] [address] [place] [address] 02/08/2025 Home Care Visit [facility] [address] [place] [address] Lizandro Nix, [facility] [address] [place] [address] 02/18/2025 Appointment [facility] [address] [place] [address] Lizandro Nix, [facility] [address] [place] [address] documented as of this encounter Visit Diagnoses Not on filedocumented in this encounter Additional Health Concerns Infection Onset Date Last Indicated Resolved Time 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 11/15/2024 documented as of this encounter Care Teams Belt Changer Relationship Specialty Start Date End Date Kelsey Tamayo MD [address] [place] [phone] [email or web address] PCP - General Internal Medicine 10/31/24 11/22/24 Maria R Sarmiento MD [address] [place] [address] [place] [address] PCP - General Internal Medicine 11/23/24 documented as of this encounter Additional Source Comments The information contained in this document represents components of the legal health record. It is not the complete legal health record.[facility]
--- OUTSIDE RECORDS SUMMARY | 2025-01-27 08:04 | XMS_ITS | Patient Health Record ---
Author Organization [facility] Address [address] [facility] [place] [address] Care Team Providers Care Clinical Programmer Name Role Phone Torsten Maria R Primary Care Provider Unavailab Willian Warren Unavailable [phone] Allergies Allergen (clinical drug ingredient) Drug/Non Drug [...] Problem Acquired hammer toe of right foot (91735494837308 05) Other hammer toe(s) (acquired), right foot (M20.41) Active confirmed Problem Type 2 diabetes mellitus with peripheral angiopathy (919015818) Type 2 diabetes mellitus with diabetic peripheral angiopathy without gangrene (E11.51) Active confirmed Problem Acquired hammer toe of left foot ([id number] 03) Other hammer toe(s) (acquired), left foot (M20.42) Active confirmed Plan Of Treatment Pending Test Test Name Order Date [id number] NAIL, 6 OR MORE 11/26/2022 [id number] NAIL, 6 OR MORE 02/25/2023 [id number] Plate 02/25/2023 [id number] Plate 11/26/2022 [id number] SKIN LESIONS, 2 TO 4 11/27/19 [id number] SKIN LESIONS, 2 TO 4 02/26/20 Insurance Providers Payer Name Payer Address Payer Phone Subscriber Number Group Number Insured Name Patient Relationship to Insured Coverage Start Date Coverage End Date [facility] 65 Medicare Preferred [address] [place] [address] [phone] [id number] Vee Parisi Self - patient is [...] Hand Surgery tooth Hospitalization History Reason Date(Month/Year) [facility]- fainted 10/2022
--- OUTSIDE RECORDS SUMMARY | 2025-01-27 08:05 | XMS_ITS | Patient Health Record ---
Author Organization [facility] Address [address] [place] [address] Care Team Providers Care Featherer Name Role Phone Joanne Blankenship M.D Primary Care Provider Jesus Coleman Unavailable [phone] Allergies Allergen (clinical drug ingredient) Drug/Non Drug [...] day; Duration: 4 day(s) 05/08/2019 Unknown Nystop 204489 UNIT/GM 1 application Externally Unknown Clarithromycin 500 [...] Status W/U Status Risk Notes Problem Callosity (989405093) Corns and callosities (L84) Active confirmed Plan Of Treatment No Information Insurance Providers Payer Name Payer Address Payer Phone Subscriber Number Group Number Insured Name Patient Relationship to Insured Coverage Start Date Coverage End Date [employer] [address] [address] [place] [address] [id number] Vee Parisi Self - patient is the insured Medical (General) History Medical History History ICD Code Gastroesphageal Reflux Anxiety Disorder Other sleep issue Heart Disease Depression Coronary Artery Disease High Blood pressure Peripheral Arterial Disease High Cholesterol Heart Problems Back pain Heart Attack ([place]) Allergies Surgical History Surgery Date(Month/Year) Cardiac Catheterization 07/2016 Peripheral Artery intervention 01/2018 Cardiac Catheterization 01/2016 Cardiac Catheterization 12/2015 Cardiac Catheterization 06/2015 Vascular surgery 03/2015 Stent Placement Breast Surgery Carpal Tunnel Surgery Heart Surgery
--- OUTSIDE RECORDS SUMMARY | 2025-01-27 08:05 | XMS_ITS | Encounter Summary ---
Author Organization [employer] Address [address] [place] [address] Care Team Providers Care Dredging Inspector Name Role Phone Unavailable Primary Care Provider [...]
[2025-01-27 08:12] LABS: Alanine Aminotransferase 72 U/L (0-31); Albumin Level 3.8 g/dL (3.5-5.0); Alkaline Phosphatase 33 U/L (39-117); Anion Gap 17 (12-20); Aspartate Amino Transferase 90 U/L (5-31); Blood Urea Nitrogen 25 mg/dL (9-16); Calcium 8.8 mg/dL (8.4-10.2); Carbon Dioxide 18 mmol/L (22-29); Chloride 108 mmol/L (96-108); Creatinine Clr Calc Pharmacy 49.0; Estimated Glomerular Filt Rate 51; Magnesium 1.7 mg/dL (1.6-2.6); Potassium 5.0 mmol/L (3.3-5.1); Sodium 138 mmol/L (135-145); Total Protein 6.6 g/dL (6.5-8.0)
[2025-01-27 08:24] LABS: Troponin-I High Sensitivity 50.2 ng/L (<3.5-17.0)
--- NOTE | 2025-01-27 08:52 | PC.NURSE ---
PA at bedside to do blood consent, pt refusing blood consent at this time d/t pentecostal.
[2025-01-27 08:56] LABS: Resp Syncy Virus RNA Qual PCR NEGATIVE (Negative); SARS COV2 PCR INHOUSE NEGATIVE (Negative)
[2025-01-27 09:01] VITALS: BP 152/52; PULSE 71; RESP 18; TEMP 36.4; O2SAT 97
[2025-01-27 09:19] LABS: OBS Int Ctl Valid YES; OBS1 POSITIVE (NEGATIVE)
[2025-01-27 11:24] LABS: Reticulocytes Absolute 0.041 X10*6/uL (0.026-0.095)
[2025-01-27 11:30] VITALS: BP 120/66; PULSE 71; RESP 14; O2SAT 99
[2025-01-27 11:39] LABS: Iron 19 mcg/dL (30-160); Percent Iron Saturation 6 % (15-50); Total Iron Binding Capacity 316 mcg/dL (228-428); Unsaturated Iron Binding 297 ug/dL
[2025-01-27 12:03] LABS: Troponin-I High Sensitivity 107.5 ng/L (<3.5-17.0)
[2025-01-27 12:16] LABS: Folate 10.6 ng/mL (> or = 4.0); Vitamin B12 287 pg/mL (200-900)
--- NOTE | 2025-01-27 12:22 | PC.NURSE ---
repeat EKG done tom paredes. MAYA at bedside to discuss plan of care with family
[2025-01-27 12:54] VITALS: BP 117/46; PULSE 65; RESP 16; O2SAT 99
[2025-01-27 13:10] LABS: Appearance Urine Clear; Glucose Urine UA Negative (Negative); PH 5.5 (5.0-9.0); Specific Gravity - Urine 1.015 (1.005-1.025); UMIC TRIGGER UACC YES
[2025-01-27 13:44] LABS: Glucose, Whole Blood 125 mg/dL (60-115)
[2025-01-27 14:14] LABS: UACC Culture Trigger YES
--- NOTE | 2025-01-27 14:29 | PM.IMHP ---
History of Present Illness Date of Service: 01/27/25 Attending physician on admission: Romaine Channing Home Chief Complaint: chest pain This is a 63-year-old female with complicated past medical history who presents to the emergency department with chest pain. Her pain is not associated with deep inspiration. she took a dose of nitro with no improvement in her symptoms. She did develop a headache after taking nitro. She came to the emergency department for evaluation. In the emergency department initial troponin was 50 and repeat increased to 107.5. Chest pain seems to have improved at this time. Lab work was significant for anemia with H/H of 5.9/18.1 and she was noted to have Hemoccult-positive stools. She reports chronic diarrhea over the past several weeks with the associated nausea. She denies any abdominal pain at this time. She does state that she has been taking Aleve twice daily to assist in managing her chronic right lower extremity pain. Patient is a Jehovah Witness and does not accept blood products. The emergency department discussed the case with Hematology who recommended Procrit however she has not yet confirmed that that is acceptable. She was evaluated by Gastroenterology with likely plan for endoscopy tomorrow or Saturday. Blood pressure has so far remained stable. She denies any vomiting blood, bright red blood per rectum. She denies sob. Review of Systems Review of Systems: Yes all other systems are reviewed and are negative Constitutional: Constitutional: Denies chills and Denies fever(s) Cardiovascular: Cardiovascular: Reports chest pain, Denies palpitations and Denies dyspnea Respiratory: Respiratory: Denies cough and Denies dyspnea Gastrointestinal: Gastrointestinal: Denies abdominal pain and Reports loose stools Endocrine: Endocrine: Denies palpitations [facility] Medical History Dizziness Orthostatic hypotension Stenosis of left vertebral artery CVA (cerebral vascular accident) Peripheral vascular disease Neuropathy Coronary artery disease Brain TIA Hypertension Diabetes Family History Father Coronary artery disease involving coronary bypass graft Mother No problems noted. Surgical History History of angioplasty of peripheral vessel Status post aorto-coronary artery bypass graft Social History Household Members: Family Household Members Other:: lives with brother Housing: Apartment Do you presently have visiting nurse or other home services: No Alcohol intake: never Patient Tobacco Use Status: Former Tobacco user Years Smoked: Remote smoking, quit in her 30s Second Hand Smoke Exposure: No Advance Directives: No Advance Directives Information Provided: Yes Nutrition Risks: No Nutritional Risk service: No Current occupational status: unemployed Meds Allergies Allergy/AdvReac Type Severity Reaction Status Date / Time apple (Apple) Allergy Unknown APPLE PEEL Verified 01/27/25 07:21 - ITCHY THROAT nut - unspecified (nut) Allergy Unknown ITCHY Verified 01/27/25 07:21 THROAT pineapple (Pineapple) Allergy Unknown ITCHY Verified 01/27/25 07:21 THROAT acetaminophen (From Percocet) Allergy Anxiety Verified 01/27/25 07:21 amoxicillin Allergy Itching Verified 01/27/25 07:21 oxycodone (From Percocet) Allergy Anxiety Verified 01/27/25 07:21 lim AdvReac Intermediate Swelling Verified 01/27/25 07:21 DUST Allergy Unknown EYES, NOSE Uncoded 01/27/25 07:21 ITCHY - ASTHMA GRASS Allergy Unknown ITCHY EYES Uncoded 01/27/25 07:21 - THROAT pet dander AdvReac Mild Itchy Eyes Uncoded 01/27/25 07:21 Home Medications ?Medication ?Instructions ?Recorded ?Confirmed ?Last Taken ?Type fluticasone propionate 50 1 spray intranasal DAILY PRN 08/12/22 12/31/24 08/11/22 09:00 History mcg/actuation nasal Allergy Symptoms spray,suspension duloxetine 60 mg capsule,delayed 60 mg PO DAILY 09/06/22 12/31/24 10/24/24 History release ezetimibe 10 mg tablet 10 mg PO BEDTIME 09/06/22 12/31/24 Unknown History metformin 1,000 mg tablet 1,000 mg PO BIDWM 09/06/22 12/31/24 Unknown History ranolazine 1,000 mg 1,000 mg PO BID 09/06/22 12/31/24 10/24/24 History tablet,extended release,12 hr insulin aspart U-100 100 unit/mL See Protocol subcut USEASDIRECTD 03/27/23 12/31/24 10/24/24 History (3 mL) subcutaneous pen (Novolog FlexPen U-100 Insulin aspart) insulin degludec 100 unit/mL 25 unit subcut BEDTIME 03/27/23 12/31/24 10/24/24 History subcutaneous solution (Tresiba U-100 Insulin) rosuvastatin 40 mg tablet 40 mg PO DAILY 03/28/23 12/31/24 Unknown History ergocalciferol (vitamin D2) 1,250 1,250 mcg PO TU@0900 10/17/24 12/31/24 10/20/24 History mcg (50,000 unit) capsule metoprolol succinate 100 mg 100 mg PO BEDTIME 10/17/24 12/31/24 Unknown History tablet,extended release 24 hr hydromorphone 2 mg tablet mg PO 12/14/24 12/31/24 Unknown History gabapentin 600 mg tablet 300 mg PO TID 12/31/24 12/31/24 Unknown History pantoprazole 40 mg tablet,delayed 40 mg PO DAILY 12/31/24 12/31/24 Unknown History release Physical Exam Vital Signs and Narrative: Vital Signs: Last Vital Signs Temp 97.6 F 01/27/25 09:01 Pulse 65 01/27/25 12:54 Resp 16 01/27/25 12:54 BP 117/46 L 01/27/25 12:54 Pulse Ox 99 01/27/25 12:54 O2 Del Method Room Air 01/27/25 12:54 BMI result Body Mass Index 25.4 Const: General: cooperative, alert and awake Nutritional Appearance: average body habitus Orientation/consciousness: patient oriented x3 Resp: Effort & Inspection: normal respiratory effort, able to speak in complete sentences, no respiratory distress and no use of accessory muscles Cardio: Rate: regular rate Neuro: General: patient oriented x3 Results Labs 01/27/25 15:19 01/27/25 07:37 Labs: Laboratory Results - last 24 hr 01/27/25 01/27/25 01/27/25 07:37 09:03 11:15 MCV 75.5 L MCH 23.3 L MCHC 30.9 L RDW 17.5 H Plt Count 370 D MPV 12.3 Immature Gran % (Auto) 0.4 Neut % (Auto) 69.2 Lymph % (Auto) 21.0 [place] % (Auto) 7.8 Eos % (Auto) 1.2 Baso % (Auto) 0.4 Lymph # (Auto) 2.1 [place] # (Auto) 0.8 Eos # (Auto) 0.1 Baso # (Auto) 0.0 Abs Immat Gran (auto) 0.04 H Absolute Neuts (auto) 6.8 Absolute Nucleated RBC 0.040 H Nucleated RBC % (auto) 0.4 H Absolute Retic 0.041 Percent Retic 1.8 Immature Retic Fraction 11.7 Retic Hgb Equivalent 17.0 L PT 15.7 H D INR 1.4 H Anion Gap 17 Estim Creat Clear Calc 49.0 Estimated GFR 51 POC Glucose Random Glucose 250 H Calcium 8.8 Magnesium 1.7 Iron 19 L TIBC 316 % Saturation 6 L Unsat Iron Binding 297 Total Bilirubin 0.2 AST 90 H ALT 72 H Alkaline Phosphatase 33 L Lactate Dehydrogenase 210 Total Protein 6.6 Albumin 3.8 Vitamin B12 287 Folate 10.6 Urine Color Urine Appearance Urine pH Ur Specific Banks Urine Protein Urine Glucose (UA) Urine Ketones Urine Blood Urine Nitrite Ur Leukocyte Esterase Urine RBC Urine WBC Ur Squamous Epith Cells Urine Bacteria Hyaline Casts Stool Occult Blood POSITIVE Influenza Type A (PCR) NEGATIVE Influenza Type B (PCR) NEGATIVE RSV RNA Qual (PCR) NEGATIVE SARS-CoV-2 RNA (RT-PCR) NEGATIVE 01/27/25 01/27/25 11:27 12:54 MCV MCH MCHC RDW Plt Count MPV Immature Gran % (Auto) Neut % (Auto) Lymph % (Auto) [place] % (Auto) Eos % (Auto) Baso % (Auto) Lymph # (Auto) [place] # (Auto) Eos # (Auto) Baso # (Auto) Abs Immat Gran (auto) Absolute Neuts (auto) Absolute Nucleated RBC Nucleated RBC % (auto) Absolute Retic Percent Retic Immature Retic Fraction Retic Hgb Equivalent PT INR Anion Gap Estim Creat Clear Calc Estimated GFR POC Glucose 125 H Random Glucose Calcium Magnesium Iron TIBC % Saturation Unsat Iron Binding Total Bilirubin AST ALT Alkaline Phosphatase Lactate Dehydrogenase Total Protein Albumin Vitamin B12 Folate Urine Color Yellow Urine Appearance Clear Urine pH 5.5 Ur Specific [place] 1.015 Urine Protein Trace Urine Glucose (UA) Negative Urine Ketones Negative Urine Blood Negative Urine Nitrite Negative Ur Leukocyte Esterase Moderate (2+) H Urine RBC 0-2 Urine WBC 21-50 H Ur Squamous Epith Cells 6-10 Urine Bacteria 1+ Hyaline Casts 0-2 Stool Occult Blood Influenza Type A (PCR) Influenza Type B (PCR) RSV RNA Qual (PCR) SARS-CoV-2 RNA (RT-PCR) Imaging Radiologist's Impressions: Impressions Chest X-Ray 01/27/25 07:00 IMPRESSION: Small bilateral pleural effusions. Mild prominence of the interstitial lung markings, which is appropriate clinical setting could represent mild interstitial pulmonary edema or fluid overload. Electronically signed by: Vilma Davis MD 01/27/2025 08:23 AM EDT RP Venous Duplex 01/27/25 09:12 IMPRESSION: No evidence of deep venous thrombosis involving the right or left lower extremities. Electronically signed by: Vilma Davis MD 01/27/2025 11:10 AM EDT RP Assessment and Plan (1) Anemia: Status: Acute Plan This is a 63-year-old female with past medical history of CAD, CABG 2017, hypertension, hyperlipidemia, TIA, peripheral vascular disease s/p multiple surgeries in [place] and more recently left SFA and popliteal stent in November at [facility] in [place], insulin-dependent diabetes type 2, hysterectomy, neuropathy, GERD who presents to the ED with chest pain found to have severe anemia Acute on chronic microcytic Anemia likely upper GI source in the setting of AC w/ Eliquis, antiplatelets and taking NSAIDs daily no overt bleeding noted. hemodynamically stable at this time declines blood transfusion/blood products as patient is Jehovah Witness per hematology would avoid procrit due to CAD/PVD, NSTEMI, rec IV iron infusions Follow H/H IV PPI GI consult, will likely need EGD, timing TBD; ok for clear liquids for now Hold NSAIDs, Plavix, Eliquis Chest pain h/o CAD s/p CABG in 2007 trop 50.0-->107.5 Likely type 2 due to demand from anemia No active chest pain at this time check third trop cardiology consult pending Left ankle injury/left distal fibular fracture sustained in October. follows outpatient with ortho continue WBAT with boot mild transaminitis follow LFTs PVD/chronic RLE pain hold plavix/eliquis follows with Dr. Chan outpatient followup T2DM SSI, POCs on clears for now HTN also has h/o orthostatic hypotension thought to be due to underlying autonomic neuropathy secondary to longstanding diabetes Continue orthostatic precautions Is maintained on lisinopril and metoprolol - hold in the setting of severe anemia neuropathy continue gabapentin when med rec completed reported history of brain swelling with unclear pain medication at rehab which required transferred to [place]. Patient's family request patient is treated only with Dilaudid for pain dvt ppx - mechanical devices, chemoprophylaxis contraindicated due to severe anemia Patient will likely require 2 midnight stay in the hospital for management of severe anemia requiring specialist evaluation and close monitoring Quality Stroke Does the patient have a stroke diagnosis?: No VTE Prior VTE?: No VTE Risk Level:: Medical - moderate - high VTE Device Contraindication: N/A - Device Ordered VTE Drug Contraindication: Treatment Not Indicated
--- NOTE | 2025-01-27 15:26 | MHC.CM.PN ---
Patient is active with [facility].
[2025-01-27] MEDS: Lactated Ringers 1,000 ML 100 ML IVCONT (15:32)
[2025-01-27 15:33] VITALS: BP 125/47; PULSE 67; RESP 20; TEMP 36.6; O2SAT 98
[2025-01-27 15:38] LABS: Hematocrit 17.0 % (37.0-47.0); Hemoglobin 5.3 g/dl (12.0-16.0)
[2025-01-27 15:50] LABS: Troponin-I High Sensitivity 581.1 ng/L (<3.5-17.0)
[2025-01-27 17:49] LABS: Glucose, Whole Blood 117 mg/dL (60-115)
--- NOTE | 2025-01-27 18:54 | PHA.MEDREC ---
Addendum entered by Josh Reddy PharmD 01/27/25 19:01: reviewed Original Note: Pharmacy Consult ? Medication Reconciliation Pharmacy has completed the medication reconciliation. Spoke to patients daughter at bedtime to confirm med list. Daughter had a list of patients medications. Daughter states patient is no longer taking Aspirin 81 mg, Vitamin D2 1,250 mg, Flonase nasal spray, Tresiba. Daughter confirmed Novolog Flexpen per sliding scale TID, however there is no claim history for. Patient last had her medications last night.
--- NOTE | 2025-01-27 19:13 | PC.NURSE ---
pt medicated per rec completed by pharmacy- pt awaiting medtele bed assignment
--- NOTE | 2025-01-27 19:18 | PM.EVENT ---
Event Note Date of Service: 01/27/25 Event Note: GI Consult-Full note dictated-History from patient, her daughter Aliza, and the EMR. Imp: Significant anemia due to UGI bleeding in relation to NSAID's, Clopidogrel, and Eliquis. Presently stable but she will not accept blood products in relation to her being a [employer]. She seems to be having exacerbation of her underlying comorbidities in relation to the anemia with evidence of some pulmonary edema, + troponins, and painful LE's at rest. Diff dx: UGI bleed due to PUD and/or Erosive gastritis Rec: Supportive care, IV iron, IV PPI, close monitoring of Hgb, hold blood thinners, avoid NSAIDs and aspirin, and Vit K if PT/INR remains prolonged. Given the significant anemia and refusal of blood products, along with her multiple comorbidities, I do not think she would be a good candidate for upper endoscopy with anesthesia at this time unless she is cleared by Cardiology, Anesthesia, and Hematology. This can be reassessed if she has active bleeding or once her Hgb rises with an improvement in her comorbidities. Her diet can be advanced as long as there is no active bleeding. Thanks Time Spent With Patient Time: Total time managing care of this patient today ____ minutes.
[2025-01-27 20:10] VITALS: BP 139/43; PULSE 67; RESP 15; TEMP 36.6; O2SAT 99
[2025-01-27 20:27] LABS: Glucose, Whole Blood 158 mg/dL (60-115)
--- NOTE | 2025-01-27 21:36 | PC.NURSE ---
RE: PRN APAP pt requests to have APAP PRN. PRN APAP order requested from MD Rios. Per MD allergy data sts pt has allergy to acetaminophen, documented allergy: anxiety. Per MD if the pt wants wants the APAP then the allergy will have to be removed. Pt appears to be asleep at this time, unable to clarify with pt any further. Family appears to help pt with decision making.
--- NOTE | 2025-01-27 21:48 | PC.NURSE ---
spoke with Linda in pharmacy- making vitamin K at this time
[2025-01-27 21:56] LABS: Hematocrit 15.3 % (37.0-47.0); Hemoglobin 4.9 g/dl (12.0-16.0)
--- NOTE | 2025-01-27 22:27 | PC.NURSE ---
Pt wanting to get up and use bedside commode, this RN advised that she should not be getting out of bed, that her heart is getting very strained right now with her HBG levels, and her troponin levels that continue to elevate. This RN talked with daughter about APAP allergy and that the provider did not feel comfortable prescribing unless it came off the list. The daughter reported she takes it every single day at home with no issues and that APAP and Dilaudid are the only medications she can take without any issues. MD made aware by other primary nurse at this time, awaiting further medication orders. 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
[2025-01-28] VITALS (11 sets, daily range): BP systolic 136–192; BP diastolic 56–82; PULSE 61–87; RESP 15–22; TEMP 36.2–36.9; O2SAT 95–100; BMI 25.4
--- NOTE | 2025-01-28 01:36 | PC.NURSE ---
pt placed on bed mata.
--- NOTE | 2025-01-28 02:54 | PC.NURSE ---
pt complains of SO, 02 sat is WNL (95%), pt head of bed was raised, pt felt some relief.
--- NOTE | 2025-01-28 02:56 | CONS_ITS ---
DATE OF SERVICE: 01/27/2025 REASON FOR CONSULTATION: Anemia, heme-positive stool, and reported melena. HISTORY OF PRESENT ILLNESS: This has been obtained from her daughter, Aliza, the patient, and the medical record. The patient is a 64-year-old female with multiple medical problems including significant vascular disease with associated coronary artery disease and peripheral vascular disease, as well as cerebrovascular disease. She describes being on both Eliquis and clopidogrel on a chronic basis. Recently due to pain in her lower extremities from vascular disease, she has been using Aleve twice a day. She noted the onset of watery, dark, and occasionally black stools over the past week or 2. During this time, she developed progressive weakness as well as some chest pain. She did have some vomiting, but there was no hematemesis or coffee-grounds emesis. She came to the ER today and was found to be significantly anemic and was admitted. The patient has had previous coronary artery bypass and multiple procedures on the lower extremities for vascular disease including angioplasties. She has also had previous NV and stroke. Since in the ER, she has had no signs of any obvious bleeding. She denies any chronic heartburn and does take pantoprazole daily. She denies any significant dysphagia. She denies any abdominal pain. She has not noticed any hematochezia. She denies any jaundice. She denies any known family history of colorectal cancer. She describes a colonoscopy and an upper endoscopy at least once in the past, but this was at least several years ago and while she was living in [place]. Details are not available. She does not presently smoke, nor use any significant amounts of alcohol. MEDICATIONS: At home included Eliquis, clopidogrel, duloxetine, Zetia, gabapentin, insulin, lisinopril, metformin, metoprolol, Aleve, pantoprazole, rosuvastatin. Present medications in the hospital include insulin, IV iron infusion, melatonin, Zofran, IV Protonix. PAST MEDICAL HISTORY: Coronary artery disease with previous NV and coronary artery bypass. Peripheral vascular disease involving her lower extremities for which she is followed presently by Dr. Chan. She has had previous angioplasty of the vessels in the lower extremities. History of cerebrovascular disease with previous stroke. There is a report of vertebral artery stenosis. She has diabetes mellitus. Hyperlipidemia. Hypertension. Neuropathy. There is a reported hysterectomy. SOCIAL HISTORY: She presently lives with family. She recently moved back to the area from [place]. She presently does not smoke nor use any significant amounts of alcohol. FAMILY HISTORY: Noncontributory. REVIEW OF SYSTEMS: CONSTITUTIONAL: She has been feeling weak and tired at home. CARDIAC: She has had some chest pain. PULMONARY: No coughing or hemoptysis. GI: As above. URINARY: No dysuria, no hematuria. PHYSICAL EXAMINATION: GENERAL: The patient is a pale, tired-appearing female, in no distress. SKIN: Warm and dry. Anicteric sclerae. ABDOMEN: Soft, nondistended, nontender without mass. LABORATORY DATA: White blood cell count 9.8, hemoglobin 5.9 compared to 10.9 back in October. MCV 76. PT 15.7, INR 1.4. Normal electrolytes. BUN 25, creatinine 1.1. Iron 19, iron saturation 6%. Total bilirubin 0.2, AST 90, ALT 72, alkaline phosphatase 33. Elevated troponin levels. B12 level 287, folate 10.6. Stool was Hemoccult positive. Chest x-ray shows some small bilateral pleural effusions and some mild changes of possible pulmonary edema. Doppler ultrasound of lower extremities was negative for any DVT of the lower extremities. IMPRESSION: Given the patient's clinical history of using 2 blood thinners and recent Aleve, it appears that her anemia would definitely be related to some upper GI blood loss based on that history as well as her description of some watery dark stools, which were occasionally black. As such, I would recommend an eventual upper endoscopy for evaluation. 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 I think the risks of the procedure with anesthesia, her significant anemia, her significant vascular disease, her finding of some questionable pulmonary edema on her chest x-ray, and her positive troponins, would put her at increased risk of having some type of adverse reaction during the endoscopy and anesthesia. PLAN: At this point, I would recommend continuing her IV PPI. She has been seen by Hematology and has received IV iron and I believe the plan is for her to receive some Procrit as well. I think her diet can be slowly advanced as long as there is no sign of any active bleeding. I would repeat a PT with INR and if that remains elevated or certainly if it becomes more prolonged, I would recommend a trial of vitamin K intravenously. If her hemoglobin rises and she becomes more clinically stable from a cardiopulmonary standpoint, then I think we could proceed with an upper endoscopy. 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 I shall follow the patient with you here in the hospital as needed. Thank you for the consultation. MD DARLYN Ladd/TG / [id number] MTDD
--- NOTE | 2025-01-28 03:20 | PC.NURSE ---
pt complains of R toe pain, tingling type pain, admitting provider advised. Awaiting new orders.
--- NOTE | 2025-01-28 03:33 | PC.NURSE ---
pt medicated per MAR.
[2025-01-28] MEDS: Lactated Ringers 1,000 ML 100 ML IVCONT (05:14)
[2025-01-28 07:41] LABS: Glucose, Whole Blood 106 mg/dL (60-115)
[2025-01-28 08:48] LABS: MANUAL DIFF FLAG NO
[2025-01-28 08:53] LABS: Imm Gran Abs Auto 0.03 X10*3/uL (0.00-0.03); Imm Gran Pct Auto 0.4 % (0.0-0.4); Lymphocytes Absolute Auto 1.6 X10*3/uL (1.2-4.9); Mean Corpuscular HGB Conc 30.6 g/dl (31.0-35.0); Mean Corpuscular Hemoglobin 22.9 pg (27.0-33.0); Mean Corpuscular Volume 74.7 fL (80.0-98.0); NRBC Abs Auto 0.020 X10*3/uL (0.0-0.012); NRBC Pct Auto 0.3 /100WBC (0.0-0.2); Platelet Count 260 X10*3/uL (160-400); Red Blood Count 2.45 X10*6/uL (4.20-5.50); White Blood Count 7.5 X10*3/uL (4.8-10.8)
[2025-01-28 08:58] LABS: INTERNATIONAL NORM RATIO 1.4 (0.9-1.1); Prothrombin Time 15.9 SEC (10.9-12.4)
[2025-01-28 09:02] LABS: Hematocrit 18.3 % (37.0-47.0); Hemoglobin 5.6 g/dl (12.0-16.0)
--- NOTE | 2025-01-28 09:12 | MHC.CM.PN ---
CM met with Patient at bedside and addressed IMM with her, providing Patient with the original and a copy has been placed on the chart. Patient lives in a first floor apartment with her Brother, uses a walker, and is active with [facility]. Home/resume said services is the goal and CM has initiated and will follow for dc planning. PCP is Dr. Maria R Sarmiento and Daughter/HCP/Natgenevieveia will transport to home at time of dc.
[2025-01-28 09:21] LABS: Alanine Aminotransferase 52 U/L (0-31); Albumin Level 3.5 g/dL (3.5-5.0); Alkaline Phosphatase 30 U/L (39-117); Aspartate Amino Transferase 57 U/L (5-31); Blood Urea Nitrogen 13 mg/dL (9-16); Calcium 8.6 mg/dL (8.4-10.2); Creatinine Clr Calc Pharmacy 65.2; Estimated Glomerular Filt Rate > 60; Total Protein 5.8 g/dL (6.5-8.0)
[2025-01-28 09:53] LABS: Anion Gap 13 (12-20); Carbon Dioxide 25 mmol/L (22-29); Chloride 108 mmol/L (96-108); Potassium 4.4 mmol/L (3.3-5.1); Sodium 142 mmol/L (135-145)
[2025-01-28 11:39] LABS: Glucose, Whole Blood 135 mg/dL (60-115)
--- NOTE | 2025-01-28 12:05 | P.PNIM_ITS ---
Subjective Subjective Date of Service: 01/28/25 Interval History: seen and examined this morning follow up for anemia, NSTEMI denies vomiting blood or dark stools discussed active medical issues and that they would improve with blood transfusion. she understands but continues to deny blood transfusion/blood products. she understands that worsening anemia may lead to her Constitutional Constitutional: Denies chills and Denies fever(s) Gastrointestinal Gastrointestinal: Denies abdominal pain, Denies nausea and Denies vomiting Physical Exam 2 Vital Signs: Vital Signs: Last Vital Signs Temp 98.4 F 01/28/25 11:40 Pulse 69 01/28/25 11:40 Resp 16 01/28/25 11:40 BP 152/60 H 01/28/25 11:40 Pulse Ox 96 01/28/25 11:40 O2 Del Method Room Air 01/28/25 11:40 BMI result Body Mass Index 25.4 Const: General: cooperative, alert and awake Nutritional Appearance: a verage body habitus Orientation/consciousness: patient oriented x3 Resp: Effort & Inspection: normal respiratory effort, able to speak in complete sentences, no respiratory distress and no use of accessory muscles A uscultation: clear to auscultation bilaterally Cardio: Rate: regular rate Neuro: General: patient oriented x3 Objective Data Active Medications Acetaminophen (Acetaminophen 325 Mg Tablet) 975 mg PO Q6H PRN PRN Reason: Pain, Mild 1-3,fever,headache Last Admin: 01/28/25 06:15 Dose: 975 mg Documented By: CARITO Atorvastatin Calcium (Atorvastatin Calcium 80 Mg Tablet) 80 mg PO DAILY [facility] Last Admin: 01/28/25 10:36 Dose: Not Given Documented By: SUNNY Non-Admin Reason: feels sick to stomach Dextrose (Dextrose 50 % 25 Gm/50 Ml Syringe) 25 gm IVPUSH Q15M PRN; Protocol PRN Reason: per Hypoglycemia Standing Ord. Duloxetine HCl (Duloxetine Hcl 60 Mg Musa.) 60 mg PO DAILY [facility] Last Admin: 01/28/25 10:37 Dose: Not Given Documented By: SUNNY Non-Admin Reason: feels sick to stomach, refused Ezetimibe (Ezetimibe 10 Mg Tablet) 10 mg PO BEDTIME [facility] Last Admin: 01/27/25 21:24 Dose: Not Given Documented By: KENTRELL Non-Admin Reason: Patient Asleep Gabapentin (Gabapentin 100 Mg Capsule) 200 mg PO TID [facility] Last Admin: 01/28/25 03:28 Dose: 200 mg Documented By: BRITTANY Glucose (Glucose Gel 15 Gm Gel..Gram.) 15 gm PO Q15M PRN; Protocol PRN Reason: per Hypoglycemia Standing Ord. Lactated Ringer's (Lr) 1,000 mls @ 100 mls/hr IVCONT .Q10H [facility] Last Admin: 01/28/25 05:14 Dose: 100 mls/hr Documented By: CARITO Iron Sucrose 200 mg/ Sodium (Chloride) 110 mls @ 440 mls/hr IV DAILY [facility] Stop: 01/30/25 16:06 Last Infusion: 01/28/25 10:17 Dose: Infused Documented By: SUNNY Insulin Human Lispro (Insulin Lispro 100 Unit/Ml 3 Ml Vial) 0 unit SUBCUT QIDACHS [facility]; Protocol Last Admin: 01/28/25 11:33 Dose: Not Given Documented By: SUNNY Non-Admin Reason: No Insulin Coverage Magnesium Hydroxide (Milk Of Magnesia 30 Ml Oral.Susp) 30 ml PO DAILY PRN PRN Reason: Constipation Melatonin (Melatonin 3 Mg Tablet) 6 mg PO BEDTIME PRN PRN Reason: Insomnia Last Admin: 01/28/25 01:28 Dose: 6 mg Documented By: BRITTANY Ondansetron HCl (Ondansetron Hcl 4 Mg/2 Ml Vial) 4 mg IVPUSH Q8H PRN PRN Reason: Nausea and Vomiting Last Admin: 01/28/25 11:19 Dose: 4 mg Documented By: SUNNY Pantoprazole Sodium (Pantoprazole Sodium 40 Mg/10 Ml Vial) 40 mg IVPUSH BID@0630,1630 [facility] Last Admin: 01/28/25 06:24 Dose: 40 mg Documented By: CARITO Sodium Chloride (0.9 % Sodium Chloride Flush 3 Ml Syringe) 3 ml IVFLUSH QSHIFT [facility] Last Admin: 01/28/25 09:18 Dose: Not Given Documented By: SUNNY Non-Admin Reason: IV Running Labs 01/28/25 08:26 01/28/25 08:26 Labs: Laboratory Results - last 24 hr 01/27/25 01/27/25 01/27/25 11:15 11:27 12:54 MCV MCH MCHC RDW Plt Count MPV Immature Gran % (Auto) Neut % (Auto) Lymph % (Auto) [place] % (Auto) Eos % (Auto) Baso % (Auto) Lymph # (Auto) [place] # (Auto) Eos # (Auto) Baso # (Auto) Abs Immat Gran (auto) Absolute Neuts (auto) Absolute Nucleated RBC Nucleated RBC % (auto) PT INR Anion Gap Estim Creat Clear Calc Estimated GFR POC Glucose 125 H Random Glucose Calcium Total Bilirubin Direct Bilirubin AST ALT Alkaline Phosphatase Total Protein Albumin Vitamin B12 287 Folate 10.6 Urine Color Yellow Urine Appearance Clear Urine pH 5.5 Ur Specific [place] 1.015 Urine Protein Trace Urine Glucose (UA) Negative Urine Ketones Negative Urine Blood Negative Urine Nitrite Negative Ur Leukocyte Esterase Moderate (2+) H Urine RBC 0-2 Urine WBC 21-50 H Ur Squamous Epith Cells 6-10 Urine Bacteria 1+ Hyaline Casts 0-2 01/27/25 01/27/25 01/28/25 17:42 20:14 07:38 MCV MCH MCHC RDW Plt Count MPV Immature Gran % (Auto) Neut % (Auto) Lymph % (Auto) [place] % (Auto) Eos % (Auto) Baso % (Auto) Lymph # (Auto) [place] # (Auto) Eos # (Auto) Baso # (Auto) Abs Immat Gran (auto) Absolute Neuts (auto) Absolute Nucleated RBC Nucleated RBC % (auto) PT INR Anion Gap Estim Creat Clear Calc Estimated GFR POC Glucose 117 H 158 H 106 Random Glucose Calcium Total Bilirubin Direct Bilirubin AST ALT Alkaline Phosphatase Total Protein Albumin Vitamin B12 Folate Urine Color Urine Appearance Urine pH Ur Specific [place] Urine Protein Urine Glucose (UA) Urine Ketones Urine Blood Urine Nitrite Ur Leukocyte Esterase Urine RBC Urine WBC Ur Squamous Epith Cells Urine Bacteria Hyaline Casts 01/28/25 01/28/25 08:26 11:33 MCV 74.7 L MCH 22.9 L MCHC 30.6 L RDW 17.2 H Plt Count 260 D MPV 12.1 Immature Gran % (Auto) 0.4 Neut % (Auto) 64.6 Lymph % (Auto) 21.3 [place] % (Auto) 10.8 Eos % (Auto) 2.4 Baso % (Auto) 0.5 Lymph # (Auto) 1.6 [place] # (Auto) 0.8 Eos # (Auto) 0.2 Baso # (Auto) 0.0 Abs Immat Gran (auto) 0.03 Absolute Neuts (auto) 4.8 Absolute Nucleated RBC 0.020 H Nucleated RBC % (auto) 0.3 H PT 15.9 H INR 1.4 H Anion Gap 13 Estim Creat Clear Calc 65.2 Estimated GFR > 60 POC Glucose 135 H Random Glucose 130 H Calcium 8.6 Total Bilirubin 0.3 Direct Bilirubin 0.2 AST 57 H ALT 52 H Alkaline Phosphatase 30 L Total Protein 5.8 L Albumin 3.5 Vitamin B12 Folate Urine Color Urine Appearance Urine pH Ur Specific [place] Urine Protein Urine Glucose (UA) Urine Ketones Urine Blood Urine Nitrite Ur Leukocyte Esterase Urine RBC Urine WBC Ur Squamous Epith Cells Urine Bacteria Hyaline Casts Microbiology Microbiology Results: Microbiology 01/27/25 Unknown Urine Culture - Final Urine clean catch - Clean Catch Midstream No growth. Assessment and Plan (1) Coronary artery disease: Status: Acute (2) Status post aorto-coronary artery bypass graft: Status: Acute (3) Hypertension: Status: Acute (4) Anemia: Status: Acute Plan This is a 63-year-old female with past medical history of CAD, CABG 2018, hypertension, hyperlipidemia, TIA, peripheral vascular disease s/p multiple surgeries in [place] and more recently left SFA and popliteal stent in November at [facility] in [place], insulin-dependent diabetes type 2, hysterectomy, neuropathy, GERD who presents to the ED with chest pain found to have severe anemia Acute on chronic microcytic Anemia due to GI bleeding, probably subacute or chronic likely upper GI source in the setting of AC w/ Eliquis, antiplatelets and taking NSAIDs daily declines blood transfusion/blood products as patient is Jehovah Witness - discussed in detail with patient and daughter per hematology would avoid procrit due to CAD/PVD, NSTEMI, rec IV iron infusions, day #2/3 H/H remains low at 5.6/18.3 but overall stable, no overt bleeding noted continue IV PPI GI consult - not likely to be able to get EGD due to NSTEMI, can advance diet Hold NSAIDs, Plavix, Eliquis follow H/H Chest pain/NSTEMI h/o CAD s/p CABG in 2007 trop 50.0-->107.5-> 581 type 2 due to demand from anemia cardiology consult- rec to control blood pressure Left ankle injury/left distal fibular fracture sustained in October. follows outpatient with ortho continue WBAT with boot mild transaminitis follow LFTs PVD/chronic RLE pain hold plavix/eliquis follows with Dr. Chan outpatient followup T2DM SSI, POCs HTN also has h/o orthostatic hypotension thought to be due to underlying autonomic neuropathy secondary to longstanding diabetes Continue orthostatic precautions Is maintained on lisinopril and metoprolol, bp uncontrolled, continue baseline meds neuropathy continue gabapentin reported history of brain swelling with unclear pain medication at rehab which required transferred to [place]. Patient's family request patient is treated only with Dilaudid for pain dvt ppx - mechanical devices, chemoprophylaxis contraindicated due to severe anemia Patient requires ongoing inpatient stay for management of severe anemia requiring specialist evaluation and close monitoring Quality Stroke Does the patient have a stroke diagnosis?: No VTE Prior VTE?: No VTE Risk Level:: Medical - moderate - high VTE Device Contraindication: N/A - Device Ordered VTE Drug Contraindication: Treatment Not Indicated
[2025-01-28] MEDS: Metoprolol Succinate ER 100 MG TAB.ER.24H PO (14:38)
[2025-01-28] MEDS: Nitroglycerin 2 % Oint 1 GM Packet 1 INCH TRANSDERMA ×2 (14:55→20:22)
[2025-01-28] MEDS: Furosemide 40 MG/4 ML VIAL IVPUSH (14:57)
[2025-01-28] MEDS: 0.9 % Sodium Chloride Flush 3 ML SYRINGE IVFLUSH ×2 (14:57→22:10)
--- NOTE | 2025-01-28 15:18 | PC.NURSE ---
At 1430 pt stating having 5/10 chest pressure after walking to bathroom. RN and aide got pt back into bed, assessing pt, BP manually 192/82. Pt stating very anxious, headache, some shortness of breath. Provider notified. Lisinopril added, instructed to give bedtime metoprolol now. Administered. Pt then stating pain 9 or 10 out of 10. Tool Maker Bench to room to also assess patient. Fine crackles noted which is new. Pt stating pressure is worse and very anxious.Shut off IV fluids per provider. Cardio order 40 IV lasix, 2L o2 per comfort for SOB, 1inch nitropaste (placed on L chest) 0.25mg Dilaudid for pain (pt has hx of bad reaction to morphine per daughter). Provider also added 0.25mg PO administered. Pt voided 3x and stated started to feel much better. Will recheck BP - see vital signs documentation. Provider updated family as well.
--- NOTE | 2025-01-28 15:49 | PM.CNCAR ---
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 She was noticed to be significantly anemic. She has refused blood transfusion and after some discussion she was given iron infusion. She had elevated troponin and some ST depressions on EKG. She had previous bypass surgery with DILLON to LAD and known occluded vein graft to RCA. She had an occluded ostial PDA stent and was found to have severe disease in the vein graft to OM at the touchdown which was stented in April of 2023. She said she went to [place] and just return and has not followed up with Cardiology in between. She was seen later in the afternoon again because the nurse told me that she was complaining of chest pain. She was very apprehensive and was noticed to have significantly elevated blood pressure and was short of breath. Examination showed JVD and crackles and she was clinically in heart failure. She was given 40 mg of IV Lasix along with nitrates. She was put on non-rebreather mask. Her blood pressure was 192/82. [facility] Past Medical History Medical History Dizziness Orthostatic hypotension Stenosis of left vertebral artery CVA (cerebral vascular accident) Peripheral vascular disease Neuropathy Coronary artery disease Brain TIA Hypertension Diabetes Family History Family History Father Coronary artery disease involving coronary bypass graft Mother No problems noted. Surgical History Surgical History History of angioplasty of peripheral vessel Status post aorto-coronary artery bypass graft Social History Social History Household Members: Family Household Members Other:: lives with brother Housing: House Do you presently have visiting nurse or other home services: No Alcohol intake: never Patient Tobacco Use Status: Former Tobacco user Years Smoked: Remote smoking, quit in her 30s Second Hand Smoke Exposure: No Currently Displaying Signs/Symptoms of Drug Intoxication Withdrawal: No Do you feel safe in your current relationship?: No Current Relationship Worship Healthcare Practices: Religious Advance Directives: No Advance Directives Information Provided: Yes Do you have a plan to hurt others: No Plan Recently lost weight without trying: Unsure Eating poorly because of decreased appetite: Yes Nutrition Risks: No Nutritional Risk Patient : No service: No Current occupational status: unemployed Meds Allergies Allergy/AdvReac Type Severity Reaction Status Date / Time apple (Apple) Allergy Unknown APPLE PEEL Verified 01/27/25 07:21 - ITCHY THROAT nut - unspecified (nut) Allergy Unknown ITCHY Verified 01/27/25 07:21 THROAT pineapple (Pineapple) Allergy Unknown ITCHY Verified 01/27/25 07:21 THROAT amoxicillin Allergy Itching Verified 01/27/25 07:21 oxycodone (From Percocet) Allergy Anxiety Verified 01/27/25 07:21 lim AdvReac Intermediate Swelling Verified 01/27/25 07:21 DUST Allergy Unknown EYES, NOSE Uncoded 01/27/25 07:21 ITCHY - ASTHMA GRASS Allergy Unknown ITCHY EYES Uncoded 01/27/25 07:21 - THROAT pet dander AdvReac Mild Itchy Eyes Uncoded 01/27/25 07:21 Active Medications: Current Medications Acetaminophen (Acetaminophen 325 Mg Tablet) 975 mg PO Q6H PRN PRN Reason: Pain, Mild 1-3,fever,headache Last Admin: 01/28/25 06:15 Dose: 975 mg Atorvastatin Calcium (Atorvastatin Calcium 80 Mg Tablet) 80 mg PO DAILY [facility] Last Admin: 01/28/25 10:36 Dose: Not Given Dextrose (Dextrose 50 % 25 Gm/50 Ml Syringe) 25 gm IVPUSH Q15M PRN; Protocol PRN Reason: per Hypoglycemia Standing Ord. Duloxetine HCl (Duloxetine Hcl 60 Mg Capsule.Dr) 60 mg PO DAILY [facility] Last Admin: 01/28/25 10:37 Dose: Not Given Ezetimibe (Ezetimibe 10 Mg Tablet) 10 mg PO BEDTIME [facility] Last Admin: 01/27/25 21:24 Dose: Not Given Gabapentin (Gabapentin 100 Mg Capsule) 200 mg PO TID [facility] Last Admin: 01/28/25 15:34 Dose: 200 mg Glucose (Glucose Gel 15 Gm Gel..Gram.) 15 gm PO Q15M PRN; Protocol PRN Reason: per Hypoglycemia Standing Ord. Iron Sucrose 200 mg/ Sodium (Chloride) 110 mls @ 440 mls/hr IV DAILY [facility] Stop: 01/30/25 16:06 Last Infusion: 01/28/25 10:17 Dose: Infused Insulin Human Lispro (Insulin Lispro 100 Unit/Ml 3 Ml Vial) 0 unit SUBCUT QIDACHS [facility]; Protocol Last Admin: 01/28/25 11:33 Dose: Not Given Lisinopril (Lisinopril 20 Mg Tablet) 20 mg PO DAILY [facility]; Protocol Last Admin: 01/28/25 14:28 Dose: 20 mg Lorazepam (Lorazepam 0.5 Mg Tablet) 0.5 mg PO Q12H PRN PRN Reason: Anxiety Magnesium Hydroxide (Milk Of Magnesia 30 Ml Oral.Susp) 30 ml PO DAILY PRN PRN Reason: Constipation Melatonin (Melatonin 3 Mg Tablet) 6 mg PO BEDTIME PRN PRN Reason: Insomnia Last Admin: 01/28/25 01:28 Dose: 6 mg Metoprolol Succinate (Metoprolol Succinate Er 100 Mg Tab.Er.24h) 100 mg PO BEDTIME [facility]; Protocol Last Admin: 01/28/25 14:38 Dose: 100 mg Nitroglycerin (Nitroglycerin 2 % Oint 1 Gm Packet) 1 inch TRANSDERMA RQ6H WHILE AWAKE [facility] Last Admin: 01/28/25 14:55 Dose: 1 inch Ondansetron HCl (Ondansetron Hcl 4 Mg/2 Ml Vial) 4 mg IVPUSH Q8H PRN PRN Reason: Nausea and Vomiting Last Admin: 01/28/25 11:19 Dose: 4 mg Pantoprazole Sodium (Pantoprazole Sodium 40 Mg/10 Ml Vial) 40 mg IVPUSH BID@0630,1630 [facility] Last Admin: 01/28/25 06:24 Dose: 40 mg Sodium Chloride (0.9 % Sodium Chloride Flush 3 Ml Syringe) 3 ml IVFLUSH QSHIFT [facility] Last Admin: 01/28/25 14:57 Dose: 3 ml Home Medications ?Medication ?Instructions ?Recorded ?Confirmed ?Last Taken ?Type duloxetine 60 mg capsule,delayed 60 mg PO DAILY 09/06/22 01/27/25 01/26/25 History release ezetimibe 10 mg tablet 10 mg PO BEDTIME 09/06/22 01/27/25 01/26/25 History metformin 1,000 mg tablet 1,000 mg PO BIDWM 09/06/22 01/27/25 01/26/25 History ranolazine 1,000 mg 1,000 mg PO BID 09/06/22 01/27/25 01/26/25 History tablet,extended release,12 hr insulin aspart U-100 100 unit/mL See Protocol subcut USEASDIRECTD 03/27/23 01/27/25 01/26/25 History (3 mL) subcutaneous pen (Novolog FlexPen U-100 Insulin aspart) rosuvastatin 40 mg tablet 40 mg PO DAILY 03/28/23 01/27/25 01/26/25 History metoprolol succinate 100 mg 100 mg PO BEDTIME 10/17/24 01/27/25 01/26/25 History tablet,extended release 24 hr pantoprazole 40 mg tablet,delayed 40 mg PO DAILY@0630 12/31/24 01/27/25 01/26/25 History release acetaminophen 325 mg tablet 650 mg PO Q6H PRN Fever Or Pain 01/27/25 01/27/25 Unknown History apixaban 2.5 mg tablet (Eliquis) 2.5 mg PO BID 01/27/25 01/27/25 01/26/25 History betamethasone dipropionate 0.05 % 1 appl topical BID 01/27/25 01/27/25 01/26/25 History topical cream gabapentin 100 mg capsule 200 mg PO TID 01/27/25 01/27/25 01/26/25 History lisinopril 20 mg tablet 20 mg PO DAILY 01/27/25 01/27/25 01/26/25 History naproxen sodium 220 mg tablet 220 mg PO BID PRN Pain 01/27/25 01/27/25 Unknown History (Alesean) Physical Exam Vital Signs: Vital Signs: Last Vital Signs Temp 98.0 F 01/28/25 15:15 Pulse 72 01/28/25 15:15 Resp 18 01/28/25 15:15 BP 182/66 H 01/28/25 15:15 Pulse Ox 100 01/28/25 15:15 O2 Del Method Nasal Cannula 01/28/25 15:15 O2 Flow Rate 2 01/28/25 15:15 BMI result Body Mass Index 25.4 GENERAL APPEARANCE: Short of breath. Apprehensive. Pale appearing. NECK: no carotid bruit, + jugular venous distention. SKIN: no suspicious lesions, warm and dry. HEART: Mid systolic murmur aortic area, regular rate and rhythm. LUNGS: Crackles at bases. ABDOMEN: soft, nontender. EXTREMITIES: no edema. PERIPHERAL PULSES: equal. NEUROLOGIC: No gross deficits, AAO X 3 Objective Labs and Meds 01/28/25 08:26 01/28/25 08:26 Lab results: Laboratory Results - last 24 hr 01/27/25 01/27/25 01/27/25 15:19 17:42 20:14 WBC RBC Hgb Hct MCV MCH MCHC RDW Plt Count MPV Immature Gran % (Auto) Neut % (Auto) Lymph % (Auto) [place] % (Auto) Eos % (Auto) Baso % (Auto) Lymph # (Auto) [place] # (Auto) Eos # (Auto) Baso # (Auto) Abs Immat Gran (auto) Absolute Neuts (auto) Absolute Nucleated RBC Nucleated RBC % (auto) PT INR Sodium Potassium Chloride Carbon Dioxide Anion Gap BUN Creatinine Estim Creat Clear Calc Estimated GFR POC Glucose 117 H 158 H Random Glucose Calcium Total Bilirubin Direct Bilirubin AST ALT Alkaline Phosphatase Troponin I High Sens 581.1 H* D Total Protein Albumin 01/27/25 01/28/25 01/28/25 21:45 07:38 08:26 WBC 7.5 RBC 2.45 L Hgb 4.9 L* 5.6 L* Hct 15.3 L* 18.3 L* MCV 74.7 L MCH 22.9 L MCHC 30.6 L RDW 17.2 H Plt Count 260 D MPV 12.1 Immature Gran % (Auto) 0.4 Neut % (Auto) 64.6 Lymph % (Auto) 21.3 [place] % (Auto) 10.8 Eos % (Auto) 2.4 Baso % (Auto) 0.5 Lymph # (Auto) 1.6 [place] # (Auto) 0.8 Eos # (Auto) 0.2 Baso # (Auto) 0.0 Abs Immat Gran (auto) 0.03 Absolute Neuts (auto) 4.8 Absolute Nucleated RBC 0.020 H Nucleated RBC % (auto) 0.3 H PT 15.9 H INR 1.4 H Sodium 142 Potassium 4.4 Chloride 108 Carbon Dioxide 25 Anion Gap 13 BUN 13 Creatinine 0.82 Estim Creat Clear Calc 65.2 Estimated GFR > 60 POC Glucose 106 Random Glucose 130 H Calcium 8.6 Total Bilirubin 0.3 Direct Bilirubin 0.2 AST 57 H ALT 52 H Alkaline Phosphatase 30 L Troponin I High Sens Total Protein 5.8 L Albumin 3.5 01/28/25 11:33 WBC RBC Hgb Hct MCV MCH MCHC RDW Plt Count MPV Immature Gran % (Auto) Neut % (Auto) Lymph % (Auto) [place] % (Auto) Eos % (Auto) Baso % (Auto) Lymph # (Auto) [place] # (Auto) Eos # (Auto) Baso # (Auto) Abs Immat Gran (auto) Absolute Neuts (auto) Absolute Nucleated RBC Nucleated RBC % (auto) PT INR Sodium Potassium Chloride Carbon Dioxide Anion Gap BUN Creatinine Estim Creat Clear Calc Estimated GFR POC Glucose 135 H Random Glucose Calcium Total Bilirubin Direct Bilirubin AST ALT Alkaline Phosphatase Troponin I High Sens Total Protein Albumin Imaging Radiologist's impression: Impressions Chest X-Ray 01/28/25 14:58 IMPRESSION: Borderline cardiomegaly. Pulmonary vascular congestion and small bilateral pleural effusions. Electronically signed by: Sanjay Bonilla MD 01/28/2025 03:09 PM EDT RP Assessment and Plan (1) Hypertension: Status: Acute (2) Coronary artery disease: Status: Acute (3) Congestive heart failure: Status: Acute Plan 64 year female with complex medical issues including peripheral vascular disease as well as coronary artery bypass surgery in the past. She also had PCI to vein graft to in April 2023. She is presenting now with chest discomfort with ECG changes and elevated troponins but is noticed to have significant anemia. She was passing dark stools and probably had GI blood loss slowly. She also has significant hypertension. She was seen twice today. Second time she was noticed to be in acute heart failure and was given IV diuretics 40 mg Lasix along with nitroglycerin paste and opioids. Resume home medications metoprolol and lisinopril. Continue nitroglycerin paste for now. As her home medications start working we can titrate or add other medications. Unfortunately can not take any antiplatelet therapy currently. 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 Procrit was not recommended by Hematology because of risk of thromboembolism. Complex issues. We will follow along with you. Thank you for allowing me to participate in the care of your patient. Please feel free to contact me if you have any questions. Procedures Date of Service Date of Service: 01/28/25
[2025-01-28 16:18] LABS: Glucose, Whole Blood 296 mg/dL (60-115)
[2025-01-28 20:43] LABS: Hematocrit 17.0 % (37.0-47.0); Hemoglobin 5.4 g/dl (12.0-16.0)
[2025-01-28 21:18] LABS: Glucose, Whole Blood 160 mg/dL (60-115)
[2025-01-29] VITALS (7 sets, daily range): BP systolic 126–154; BP diastolic 55–67; PULSE 62–71; RESP 16–18; TEMP 36–36.8; O2SAT 95–100
[2025-01-29 07:06] LABS: Mean Corpuscular HGB Conc 30.4 g/dl (31.0-35.0); Mean Corpuscular Hemoglobin 22.5 pg (27.0-33.0); Mean Corpuscular Volume 74.2 fL (80.0-98.0); NRBC Abs Auto 0.080 X10*3/uL (0.0-0.012); Platelet Count 276 X10*3/uL (160-400); Red Blood Count 2.44 X10*6/uL (4.20-5.50); White Blood Count 7.6 X10*3/uL (4.8-10.8)
[2025-01-29 07:15] LABS: NRBC Pct Auto 1.0 /100WBC (0.0-0.2)
[2025-01-29 07:17] LABS: Glucose, Whole Blood 123 mg/dL (60-115)
[2025-01-29 07:18] LABS: Hematocrit 18.1 % (37.0-47.0); Hemoglobin 5.5 g/dl (12.0-16.0)
[2025-01-29] MEDS: Nitroglycerin 2 % Oint 1 GM Packet 1 INCH TRANSDERMA (08:11)
[2025-01-29] MEDS: 0.9 % Sodium Chloride Flush 3 ML SYRINGE IVFLUSH ×3 (08:30→20:37)
--- NOTE | 2025-01-29 10:23 | P.PNCA_ITS ---
Subjective Subjective Date of Service: 01/29/25 Interval history: Seen examined at bedside. Clinically stable at this point. Physical Exam Vital Signs: Last Vital Signs Temp 96.8 F 01/29/25 07:08 Pulse 66 01/29/25 07:08 Resp 18 01/29/25 07:08 BP 148/65 H 01/29/25 08:10 Pulse Ox 100 01/29/25 07:08 O2 Del Method Nasal Cannula 01/29/25 07:08 O2 Flow Rate 2 01/29/25 07:08 BMI result Body Mass Index 25.4 GENERAL APPEARANCE: In no distress. NECK: no carotid bruit, no significant jugular venous distention. SKIN: no suspicious lesions, warm and dry. HEART: Mid systolic murmur aortic area, regular rate and rhythm. LUNGS: Clear to auscultation. ABDOMEN: soft, nontender. EXTREMITIES: no edema. PERIPHERAL PULSES: equal. NEUROLOGIC: No gross deficits, AAO X 3 Objective Labs and Meds 01/29/25 06:10 01/28/25 08:26 Lab results: Laboratory Results - last 24 hr 01/28/25 01/28/25 01/28/25 11:33 16:12 19:58 WBC RBC Hgb 5.4 L* Hct 17.0 L* MCV MCH MCHC RDW Plt Count MPV Absolute Nucleated RBC Nucleated RBC % (auto) POC Glucose 135 H 296 H 01/28/25 01/29/25 01/29/25 21:08 06:10 07:01 WBC 7.6 RBC 2.44 L Hgb 5.5 L* Hct 18.1 L* MCV 74.2 L MCH 22.5 L MCHC 30.4 L RDW 17.2 H Plt Count 276 MPV 12.0 Absolute Nucleated RBC 0.080 H Nucleated RBC % (auto) 1.0 H POC Glucose 160 H 123 H Imaging Radiologist's impression: Impressions Chest X-Ray 01/28/25 14:58 IMPRESSION: Borderline cardiomegaly. Pulmonary vascular congestion and small bilateral pleural effusions. Electronically signed by: Sanjay Bonilla MD 01/28/2025 03:09 PM EDT Progress Note: A&P Assessment and plan (1) Hypertension: Status: Acute (2) Congestive heart failure: Status: Acute (3) Chest discomfort: Status: Acute Plan 64-year-old [employer] with coronary disease status post bypass surgery as well as vein graft PCI in the past, peripheral vascular disease presenting with significant anemia with type 2 ID as well as episode of congestive heart failure. Blood pressure was significantly elevated yesterday and she developed pulmonary edema. Blood pressure improved at this point since resuming her home medications. Increasing lisinopril to 40 mg daily. Give p.o. Lasix 20 mg daily. Stop the nitro paste. Time Spent With Patient Time: Total time managing care of this patient today ____ minutes. Progress Note: Quality Stroke Does the patient have a stroke diagnosis?: No Procedures Date of Service Date of Service: 01/29/25
[2025-01-29 11:08] LABS: Glucose, Whole Blood 286 mg/dL (60-115)
--- NOTE | 2025-01-29 12:11 | HO.PM.IMPN ---
Subjective Subjective Date of Service: 01/29/25 Interval History: Seen and examined this morning Follow-up for NSTEMI, severe anemia Developed pulmonary edema yesterday afternoon, improved today Denies shortness of breath or chest pain Constitutional Constitutional: Denies chills and Denies fever(s) Physical Exam Vital Signs: Vital Signs: Last Vital Signs Temp 97.0 F 01/29/25 11:01 Pulse 65 01/29/25 11:01 Resp 18 01/29/25 11:01 BP 148/66 H 01/29/25 11:01 Pulse Ox 99 01/29/25 11:01 O2 Del Method Nasal Cannula 01/29/25 11:01 O2 Flow Rate 2 01/29/25 11:01 BMI result Body Mass Index 25.4 Const: General: cooperative, alert and awake Nutritional Appearance: average body habitus Orientation/consciousness: patient oriented x3 Resp: Effort & Inspection: normal respiratory effort, able to speak in complete sentences, no respiratory distress and no use of accessory muscles Auscultation: clear to auscultation bilaterally Cardio: Rate: regular rate Neuro: General: patient oriented x3 Objective Data Active Medications Acetaminophen (Acetaminophen 325 Mg Tablet) 975 mg PO Q6H PRN PRN Reason: Pain, Mild 1-3,fever,headache Last Admin: 01/28/25 06:15 Dose: 975 mg Documented By: CARITO Atorvastatin Calcium (Atorvastatin Calcium 80 Mg Tablet) 80 mg PO DAILY [facility] Last Admin: 01/29/25 08:11 Dose: 80 mg Documented By: MARCIAL Dextrose (Dextrose 50 % 25 Gm/50 Ml Syringe) 25 gm IVPUSH Q15M PRN; Protocol PRN Reason: per Hypoglycemia Standing Ord. Duloxetine HCl (Duloxetine Hcl 60 Mg Capsule.) 60 mg PO DAILY [facility] Last Admin: 01/29/25 08:11 Dose: 60 mg Documented By: MARCIAL Ezetimibe (Ezetimibe 10 Mg Tablet) 10 mg PO BEDTIME [facility] Last Admin: 01/28/25 20:07 Dose: 10 mg Documented By: LESLIE Gabapentin (Gabapentin 100 Mg Capsule) 200 mg PO TID [facility] Last Admin: 01/29/25 08:10 Dose: 200 mg Documented By: MARCIAL Glucose (Glucose Gel 15 Gm Gel..Gram.) 15 gm PO Q15M PRN; Protocol PRN Reason: per Hypoglycemia Standing Ord. Iron Sucrose 200 mg/ Sodium (Chloride) 110 mls @ 440 mls/hr IV DAILY [facility] Stop: 01/30/25 16:06 Last Infusion: 01/29/25 08:35 Dose: Infused Documented By: MARCIAL Insulin Human Lispro (Insulin Lispro 100 Unit/Ml 3 Ml Vial) 0 unit SUBCUT QIDACHS [facility]; Protocol Last Admin: 01/29/25 11:22 Dose: 6 unit Documented By: MARCIAL Lisinopril (Lisinopril 40 Mg Tablet) 40 mg PO DAILY [facility]; Protocol Lorazepam (Lorazepam 0.5 Mg Tablet) 0.5 mg PO Q12H PRN PRN Reason: Anxiety Last Admin: 01/29/25 11:21 Dose: 0.5 mg Documented By: MARCIAL Comments: Patient requested. Magnesium Hydroxide (Milk Of Magnesia 30 Ml Oral.Susp) 30 ml PO DAILY PRN PRN Reason: Constipation Melatonin (Melatonin 3 Mg Tablet) 6 mg PO BEDTIME PRN PRN Reason: Insomnia Last Admin: 01/28/25 01:28 Dose: 6 mg Documented By: BRITTANY Metoprolol Succinate (Metoprolol Succinate Er 100 Mg Tab.Er.24h) 100 mg PO BEDTIME [facility]; Protocol Last Admin: 01/28/25 14:38 Dose: 100 mg Documented By: SUNNY Nitroglycerin (Nitroglycerin 2 % Oint 1 Gm Packet) 1 inch TRANSDERMA RQ6H WHILE AWAKE [facility] Last Admin: 01/29/25 08:11 Dose: 1 inch Documented By: MARCIAL Ondansetron HCl (Ondansetron Hcl 4 Mg/2 Ml Vial) 4 mg IVPUSH Q8H PRN PRN Reason: Nausea and Vomiting Last Admin: 01/28/25 11:19 Dose: 4 mg Documented By: SUNNY Pantoprazole Sodium (Pantoprazole Sodium 40 Mg/10 Ml Vial) 40 mg IVPUSH BID@0630,1630 [facility] Last Admin: 01/29/25 05:29 Dose: 40 mg Documented By: LESLIE Sodium Chloride (0.9 % Sodium Chloride Flush 3 Ml Syringe) 3 ml IVFLUSH QSHIFT [facility] Last Admin: 01/29/25 08:30 Dose: 3 ml Documented By: MARCIAL Labs 01/29/25 06:10 01/28/25 08:26 Labs: Laboratory Results - last 24 hr 01/28/25 01/28/25 01/29/25 16:12 21:08 06:10 MCV 74.2 L MCH 22.5 L MCHC 30.4 L RDW 17.2 H Plt Count 276 MPV 12.0 Absolute Nucleated RBC 0.080 H Nucleated RBC % (auto) 1.0 H POC Glucose 296 H 160 H 01/29/25 01/29/25 07:01 10:56 MCV MCH MCHC RDW Plt Count MPV Absolute Nucleated RBC Nucleated RBC % (auto) POC Glucose 123 H 286 H Microbiology Microbiology Results: Microbiology 01/27/25 Unknown Urine Culture - Final Urine clean catch - Clean Catch Midstream No growth. Assessment and Plan (1) Congestive heart failure: Status: Acute (2) Hypertension: Status: Acute (3) Coronary artery disease: Status: Acute (4) Status post aorto-coronary artery bypass graft: Status: Acute (5) Peripheral vascular disease: Status: Acute (6) Anemia: Status: Acute Plan This is a 63-year-old female with past medical history of CAD, CABG 2018, hypertension, hyperlipidemia, TIA, peripheral vascular disease s/p multiple surgeries in [place] and more recently left SFA and popliteal stent in November at [facility] in [place], insulin-dependent diabetes type 2, hysterectomy, neuropathy, GERD who presents to the ED with chest pain found to have severe anemia Acute on chronic microcytic Anemia due to GI bleeding, probably subacute or chronic likely upper GI source in the setting of AC w/ Eliquis, antiplatelets and taking NSAIDs daily declines blood transfusion/blood products as patient is Jehovah Witness - discussed in detail with patient and daughter per hematology would avoid procrit due to CAD/PVD, NSTEMI (procrit also not effective with low iron levels) rec IV iron infusions, day #3/5 (initially planned for 3 days, will extend to 5) H/H remains low at 5.6/18.3 but overall stable, no overt bleeding noted continue IV PPI GI consult - not likely to be able to get EGD due to NSTEMI, can advance diet Hold NSAIDs, Plavix, Eliquis follow H/H but otherwise minimize blood draws acute pulmonary edema due to uncontrolled BP s/p IV lasix, nitropaste with improvement Transition to p.o. Lasix cardiology following Chest pain/NSTEMI h/o CAD s/p CABG in 2007 trop 50.0-->107.5-> 581 type 2 due to demand from anemia cardiology consult- rec to control blood pressure HTN also has h/o orthostatic hypotension thought to be due to underlying autonomic neuropathy secondary to longstanding diabetes (as per outpatient nephro notes) Continue orthostatic precautions Is maintained on lisinopril and metoprolol, bp uncontrolled, continue baseline meds - dose of lisinopril increased to 40 mg BP overall much improved Left ankle injury/left distal fibular fracture sustained in October. follows outpatient with ortho continue WBAT with boot mild transaminitis follow LFTs PVD/chronic RLE pain hold plavix/eliquis follows with Dr. Chan outpatient followup T2DM SSI, POCs neuropathy continue gabapentin reported history of brain swelling with unclear pain medication at rehab which required transferred to [place]. Patient's family request patient is treated only with Dilaudid for pain dvt ppx - mechanical devices, chemoprophylaxis contraindicated due to severe anemia Patient requires ongoing inpatient stay for management of severe anemia requiring specialist evaluation and close monitoring Quality Stroke Does the patient have a stroke diagnosis?: No VTE Prior VTE?: No VTE Risk Level:: Medical - moderate - high VTE Device Contraindication: N/A - Device Ordered VTE Drug Contraindication: Treatment Not Indicated
--- NOTE | 2025-01-29 12:28 | MHC.CM.PN ---
Per ROUNDS discussion, Patient is not yet medically cleared for dc (still anemic); home/resume services is the goal and CM will continue to follow.
[2025-01-29 16:02] LABS: Glucose, Whole Blood 191 mg/dL (60-115)
[2025-01-29] MEDS: Milk of Magnesia 30 ML ORAL.SUSP PO (17:05)
[2025-01-29] MEDS: Metoprolol Succinate ER 100 MG TAB.ER.24H PO (20:26)
[2025-01-29 21:25] LABS: Glucose, Whole Blood 202 mg/dL (60-115)
[2025-01-30] VITALS (9 sets, daily range): BP systolic 110–149; BP diastolic 58–69; PULSE 60–71; RESP 12–20; TEMP 36.1–36.6; O2SAT 96–99
[2025-01-30 07:23] LABS: Glucose, Whole Blood 151 mg/dL (60-115)
[2025-01-30] MEDS: 0.9 % Sodium Chloride Flush 3 ML SYRINGE IVFLUSH ×3 (08:12→21:30)
--- NOTE | 2025-01-30 10:59 | P.PNIM_ITS ---
Subjective Subjective Date of Service: 01/30/25 Interval History: Follow-up for NSTEMI, severe anemia Developed pulmonary edema yesterday afternoon, improved today Denies shortness of breath or chest pain Constitutional Constitutional: Denies chills and Denies fever(s) Physical Exam 2 Exam: Exam: Appearing in no acute distress lung sounds are clear to auscultation heart regular rate rhythm, clear S1, S2 positive bowel sounds, abdomen is soft, nontender neuro patient is alert x3, no focal deficits Vital Signs: Vital Signs: Last Vital Signs Temp 97.7 F 01/30/25 07:59 Pulse 60 01/30/25 07:59 Resp 16 01/30/25 07:59 BP 149/67 H 01/30/25 08:11 Pulse Ox 99 01/30/25 07:59 O2 Del Method Room Air 01/30/25 07:59 O2 Flow Rate 2 01/30/25 00:00 BMI result Body Mass Index 25.4 Objective Data Active Medications Acetaminophen (Acetaminophen 325 Mg Tablet) 975 mg PO Q6H PRN PRN Reason: Pain, Mild 1-3,fever,headache Last Admin: 01/28/25 06:15 Dose: 975 mg Documented By: CARITO Atorvastatin Calcium (Atorvastatin Calcium 80 Mg Tablet) 80 mg PO DAILY [facility] Last Admin: 01/30/25 08:11 Dose: 80 mg Documented By: CAROLEE Dextrose (Dextrose 50 % 25 Gm/50 Ml Syringe) 25 gm IVPUSH Q15M PRN; Protocol PRN Reason: per Hypoglycemia Standing Ord. Duloxetine HCl (Duloxetine Hcl 60 Mg Capsule.Dr) 60 mg PO DAILY [facility] Last Admin: 01/30/25 08:10 Dose: 60 mg Documented By: CAROLEE Ezetimibe (Ezetimibe 10 Mg Tablet) 10 mg PO BEDTIME [facility] Last Admin: 01/29/25 20:26 Dose: 10 mg Documented By: CLARI-DESSREEKANTH Furosemide (Furosemide 20 Mg Tablet) 20 mg PO DAILY [facility]; Protocol Last Admin: 01/30/25 08:10 Dose: 20 mg Documented By: CAROLEE Gabapentin (Gabapentin 100 Mg Capsule) 200 mg PO TID [facility] Last Admin: 01/30/25 08:11 Dose: 200 mg Documented By: CAROLEE Glucose (Glucose Gel 15 Gm Gel..Gram.) 15 gm PO Q15M PRN; Protocol PRN Reason: per Hypoglycemia Standing Ord. Hydromorphone HCl (Hydromorphone Hcl 2 Mg Tablet) 2 mg PO Q8H PRN PRN Reason: Pain, Severe (Pain Scale 7-10) Last Admin: 01/30/25 09:14 Dose: 2 mg Documented By: CAROLEE Iron Sucrose 200 mg/ Sodium (Chloride) 110 mls @ 440 mls/hr IV DAILY [facility] Stop: 01/30/25 16:06 Last Infusion: 01/30/25 08:26 Dose: Infused Documented By: CAROLEE Iron Sucrose 200 mg/ Sodium (Chloride) 110 mls @ 440 mls/hr IV DAILY [facility] Stop: 02/01/25 08:59 Last Infusion: 01/30/25 09:30 Dose: Infused Documented By: CAROLEE Insulin Human Lispro (Insulin Lispro 100 Unit/Ml 3 Ml Vial) 0 unit SUBCUT QIDACHS [facility]; Protocol Last Admin: 01/30/25 08:12 Dose: 2 unit Documented By: CAROLEE Lisinopril (Lisinopril 40 Mg Tablet) 40 mg PO DAILY [facility]; Protocol Last Admin: 01/30/25 08:11 Dose: 40 mg Documented By: CAROLEE Lorazepam (Lorazepam 0.5 Mg Tablet) 0.5 mg PO Q12H PRN PRN Reason: Anxiety Last Admin: 01/29/25 20:26 Dose: 0.5 mg Documented By: TERENCE Magnesium Hydroxide (Milk Of Magnesia 30 Ml Oral.Susp) 30 ml PO DAILY PRN PRN Reason: Constipation Last Admin: 01/29/25 17:05 Dose: 30 ml Documented By: MARCIAL Melatonin (Melatonin 3 Mg Tablet) 6 mg PO BEDTIME PRN PRN Reason: Insomnia Last Admin: 01/29/25 20:26 Dose: 6 mg Documented By: TERENCE Metoprolol Succinate (Metoprolol Succinate Er 100 Mg Tab.Er.24h) 100 mg PO BEDTIME [facility]; Protocol Last Admin: 01/29/25 20:26 Dose: 100 mg Documented By: CLARI-JASMINA Ondansetron HCl (Ondansetron Hcl 4 Mg/2 Ml Vial) 4 mg IVPUSH Q8H PRN PRN Reason: Nausea and Vomiting Last Admin: 01/28/25 11:19 Dose: 4 mg Documented By: SUNNY Pantoprazole Sodium (Pantoprazole Sodium 40 Mg/10 Ml Vial) 40 mg IVPUSH BID@0630,1630 [facility] Last Admin: 01/30/25 05:55 Dose: 40 mg Documented By: CLARI-DESSK Sodium Chloride (0.9 % Sodium Chloride Flush 3 Ml Syringe) 3 ml IVFLUSH QSHIFT [facility] Last Admin: 01/30/25 08:12 Dose: 3 ml Documented By: CAROLEE Triamcinolone Acetonide (Triamcinolone Acet 0.5 % Cream 15 Gm Tube) 1 appl TOPICAL BID [facility] Last Admin: 01/30/25 10:18 Dose: Not Given Documented By: CAROLEE Non-Admin Reason: called pharmacy Labs 01/29/25 06:10 01/28/25 08:26 Labs: Laboratory Results - last 24 hr 01/29/25 01/29/25 01/29/25 06:10 10:56 15:58 Smear Path Review SEE NOTE POC Glucose 286 H 191 H 01/29/25 01/30/25 21:17 07:19 Smear Path Review POC Glucose 202 H 151 H Assessment and Plan (1) Congestive heart failure: Status: Acute (2) Hypertension: Status: Acute (3) Coronary artery disease: Status: Acute (4) Status post aorto-coronary artery bypass graft: Status: Acute (5) Peripheral vascular disease: Status: Acute (6) Anemia: Status: Acute Plan 63-year-old female with past medical history of CAD, CABG 2017, hypertension, hyperlipidemia, TIA, peripheral vascular disease s/p multiple surgeries in [place] and more recently left SFA and popliteal stent in November at [facility] in [place], insulin-dependent diabetes type 2, hysterectomy, neuropathy, GERD who presents to the ED with chest pain found to have severe anemia Acute on chronic microcytic Anemia due to GI bleeding, probably subacute or chronic likely upper GI source in the setting of AC w/ Eliquis, antiplatelets and taking NSAIDs daily declines blood transfusion/blood products as patient is Jehovah Witness - discussed in detail with patient and daughter per hematology would avoid procrit due to CAD/PVD, NSTEMI (procrit also not effective with low iron levels) rec IV iron infusions, day #3/5 (initially planned for 3 days, will extend to 5) H/H remains low at 5.5/18.1 but overall stable, no overt bleeding noted continue IV PPI GI consult >not likely to be able to get EGD due to NSTEMI, can advance diet Hold NSAIDs, Plavix, Eliquis follow H/H but otherwise minimize blood draws Acute pulmonary edema. Resolved due to uncontrolled BP s/p IV lasix, nitropaste with improvement Transition to p.o. Lasix cardiology following Chest pain/NSTEMI h/o CAD s/p CABG in 2007 trop 50.0-->107.5-> 581 type 2 due to demand from anemia cardiology consult- rec to control blood pressure HTN also has h/o orthostatic hypotension thought to be due to underlying autonomic neuropathy secondary to longstanding diabetes (as per outpatient nephro notes) Continue orthostatic precautions Is maintained on lisinopril and metoprolol, bp uncontrolled, continue baseline meds - dose of lisinopril increased to 40 mg BP overall much improved Left ankle injury/left distal fibular fracture sustained in October. follows outpatient with ortho continue WBAT with boot mild transaminitis follow LFTs PVD/chronic RLE pain hold plavix/eliquis follows with Dr. Chan outpatient followup T2DM SSI, POCs neuropathy continue gabapentin reported history of brain swelling with unclear pain medication at rehab which required transferred to [place]. Patient's family request patient is treated only with Dilaudid for pain dvt ppx - mechanical devices, chemoprophylaxis contraindicated due to severe anemia Quality Stroke Does the patient have a stroke diagnosis?: No VTE Prior VTE?: No VTE Risk Level:: Medical - moderate - high VTE Device Contraindication: N/A - Device Ordered VTE Drug Contraindication: Treatment Not Indicated
[2025-01-30 11:42] LABS: Glucose, Whole Blood 231 mg/dL (60-115)
--- NOTE | 2025-01-30 12:45 | P.PNCA_ITS ---
Subjective Subjective Date of Service: 01/30/25 Interval history: seen and examined at bedside. Physical Exam Vital Signs: Last Vital Signs Temp 97.8 F 01/30/25 11:12 Pulse 64 01/30/25 11:12 Resp 14 01/30/25 11:12 BP 143/63 H 01/30/25 11:12 Pulse Ox 96 01/30/25 11:12 O2 Del Method Room Air 01/30/25 11:12 O2 Flow Rate 2 01/30/25 00:00 BMI result Body Mass Index 25.4 GENERAL APPEARANCE: In no distress. NECK: no carotid bruit, no significant jugular venous distention. SKIN: no suspicious lesions, warm and dry. HEART: Mid systolic murmur aortic area, regular rate and rhythm. LUNGS: Clear to auscultation. ABDOMEN: soft, nontender. EXTREMITIES: no edema. PERIPHERAL PULSES: equal. NEUROLOGIC: No gross deficits, AAO X 3 Objective Labs and Meds 01/29/25 06:10 01/28/25 08:26 Lab results: Laboratory Results - last 24 hr 01/29/25 01/29/25 01/30/25 15:58 21:17 07:19 POC Glucose 191 H 202 H 151 H 01/30/25 11:15 POC Glucose 231 H Progress Note: A&P Assessment and plan (1) Hypertension: Status: Acute (2) Congestive heart failure: Status: Acute (3) Chest discomfort: Status: Acute Plan 64-year-old [employer] with coronary disease status post bypass surgery as well as vein graft PCI in the past, peripheral vascular disease presenting with significant anemia with type 2 OH as well as episode of congestive heart failure. Blood pressure was significantly elevated and she developed pulmonary edema. Blood pressure improved at this point since resuming her home medications. Continue lisinopril 40 mg daily. If blood pressure allows add isosorbide mononitrate 30 mg daily. Give p.o. Lasix 20 mg daily. Thank you for allowing me to participate in the care of your patient. Please feel free to contact me if you have any questions. Time Spent With Patient Time: Total time managing care of this patient today ____ minutes. Progress Note: Quality Stroke Does the patient have a stroke diagnosis?: No Procedures Date of Service Date of Service: 01/30/25
[2025-01-30] MEDS: Triamcinolone Acet 0.5 % Cream 15 GM TUBE 1 APPL TOPICAL (13:44)
[2025-01-30 16:20] LABS: Glucose, Whole Blood 163 mg/dL (60-115)
[2025-01-30 21:24] LABS: Glucose, Whole Blood 190 mg/dL (60-115)
[2025-01-30] MEDS: Metoprolol Succinate ER 100 MG TAB.ER.24H PO (21:27)
[2025-01-31] VITALS: BP 113/56; PULSE 74; RESP 20; TEMP 36.8; O2SAT 96
[2025-01-31 04:00] VITALS: BP 129/58; PULSE 68; RESP 20; TEMP 36.7; O2SAT 96
[2025-01-31 07:02] VITALS: BP 130/58; PULSE 69; RESP 18; TEMP 36.2; O2SAT 96
[2025-01-31 07:27] LABS: Glucose, Whole Blood 140 mg/dL (60-115)
[2025-01-31 07:53] LABS: Mean Corpuscular HGB Conc 29.9 g/dl (31.0-35.0); Mean Corpuscular Hemoglobin 23.8 pg (27.0-33.0); Mean Corpuscular Volume 79.8 fL (80.0-98.0); NRBC Abs Auto 0.200 X10*3/uL (0.0-0.012); Platelet Count 271 X10*3/uL (160-400); Red Blood Count 2.52 X10*6/uL (4.20-5.50); White Blood Count 11.3 X10*3/uL (4.8-10.8)
[2025-01-31 08:01] LABS: NRBC Pct Auto 1.8 /100WBC (0.0-0.2)
[2025-01-31 08:08] LABS: Hemoglobin 6.0 g/dl (12.0-16.0)
[2025-01-31 08:09] LABS: Hematocrit 20.1 % (37.0-47.0)
[2025-01-31] MEDS: 0.9 % Sodium Chloride Flush 3 ML SYRINGE IVFLUSH ×3 (08:47→20:48)
[2025-01-31 09:12] LABS: Hematocrit 21.0 % (37.0-47.0); Hemoglobin 6.4 g/dl (12.0-16.0)
[2025-01-31 11:13] LABS: Glucose, Whole Blood 265 mg/dL (60-115)
[2025-01-31 11:21] VITALS: BP 111/66; PULSE 69; RESP 16; TEMP 36.3; O2SAT 94
--- NOTE | 2025-01-31 11:36 | HO.PM.IMPN ---
Subjective Subjective Date of Service: 01/31/25 Interval History: Follow-up for NSTEMI, severe anemia Developed pulmonary edema yesterday afternoon, improved today Denies shortness of breath or chest pain Constitutional Constitutional: Denies chills and Denies fever(s) Physical Exam Vital Signs: Vital Signs: Last Vital Signs Temp 97.3 F 01/31/25 11:21 Pulse 69 01/31/25 11:21 Resp 16 01/31/25 11:21 BP 111/66 01/31/25 11:21 Pulse Ox 94 01/31/25 11:21 O2 Del Method Room Air 01/31/25 11:21 O2 Flow Rate 2 01/30/25 20:00 BMI result Body Mass Index 25.4 Objective Data Active Medications Acetaminophen (Acetaminophen 325 Mg Tablet) 975 mg PO Q6H PRN PRN Reason: Pain, Mild 1-3,fever,headache Last Admin: 01/30/25 12:33 Dose: 975 mg Documented By: CAROLEE Atorvastatin Calcium (Atorvastatin Calcium 80 Mg Tablet) 80 mg PO DAILY [facility] Last Admin: 01/31/25 08:42 Dose: 80 mg Documented By: CAROLEE Dextrose (Dextrose 50 % 25 Gm/50 Ml Syringe) 25 gm IVPUSH Q15M PRN; Protocol PRN Reason: per Hypoglycemia Standing Ord. Duloxetine HCl (Duloxetine Hcl 60 Mg Capsule.Dr) 60 mg PO DAILY [facility] Last Admin: 01/31/25 08:42 Dose: 60 mg Documented By: CAROLEE Ezetimibe (Ezetimibe 10 Mg Tablet) 10 mg PO BEDTIME [facility] Last Admin: 01/30/25 21:27 Dose: 10 mg Documented By: CLARI-DESSREEKANTH Furosemide (Furosemide 20 Mg Tablet) 20 mg PO DAILY [facility]; Protocol Last Admin: 01/31/25 08:42 Dose: 20 mg Documented By: CAROLEE Gabapentin (Gabapentin 100 Mg Capsule) 200 mg PO TID [facility] Last Admin: 01/31/25 08:42 Dose: 200 mg Documented By: CAROLEE Glucose (Glucose Gel 15 Gm Gel..Gram.) 15 gm PO Q15M PRN; Protocol PRN Reason: per Hypoglycemia Standing Ord. Hydromorphone HCl (Hydromorphone Hcl 2 Mg Tablet) 2 mg PO Q4H PRN PRN Reason: Pain, Severe (Pain Scale 7-10) Last Admin: 01/31/25 08:42 Dose: 2 mg Documented By: CAROLEE Iron Sucrose 200 mg/ Sodium (Chloride) 110 mls @ 440 mls/hr IV DAILY [facility] Stop: 02/01/25 08:59 Last Infusion: 01/31/25 09:05 Dose: Infused Documented By: CAROLEE Insulin Human Lispro (Insulin Lispro 100 Unit/Ml 3 Ml Vial) 0 unit SUBCUT QIDACHS [facility]; Protocol Last Admin: 01/31/25 07:31 Dose: Not Given Documented By: CAROLEE Non-Admin Reason: No Insulin Coverage Lisinopril (Lisinopril 40 Mg Tablet) 40 mg PO DAILY [facility]; Protocol Last Admin: 01/31/25 08:42 Dose: 40 mg Documented By: CAROLEE Lorazepam (Lorazepam 0.5 Mg Tablet) 0.5 mg PO Q12H PRN PRN Reason: Anxiety Last Admin: 01/30/25 13:43 Dose: 0.5 mg Documented By: CAROLEE Magnesium Hydroxide (Milk Of Magnesia 30 Ml Oral.Susp) 30 ml PO DAILY PRN PRN Reason: Constipation Last Admin: 01/29/25 17:05 Dose: 30 ml Documented By: MARCIAL Melatonin (Melatonin 3 Mg Tablet) 6 mg PO BEDTIME PRN PRN Reason: Insomnia Last Admin: 01/30/25 21:28 Dose: 6 mg Documented By: TERENCE Metoprolol Succinate (Metoprolol Succinate Er 100 Mg Tab.Er.24h) 100 mg PO BEDTIME [facility]; Protocol Last Admin: 01/30/25 21:27 Dose: 100 mg Documented By: TERENCE Ondansetron HCl (Ondansetron Hcl 4 Mg/2 Ml Vial) 4 mg IVPUSH Q8H PRN PRN Reason: Nausea and Vomiting Last Admin: 01/28/25 11:19 Dose: 4 mg Documented By: SUNNY Oxycodone HCl (Oxycodone Hcl Immed Release 5 Mg Tablet) 5 mg PO Q4H PRN PRN Reason: Pain, Moderate(Pain Scale 4-6) Pantoprazole Sodium (Pantoprazole Sodium 40 Mg/10 Ml Vial) 40 mg IVPUSH BID@0630,1630 [facility] Last Admin: 01/31/25 06:08 Dose: 40 mg Documented By: CLARI-JASMINA Sodium Chloride (0.9 % Sodium Chloride Flush 3 Ml Syringe) 3 ml IVFLUSH QSHIFT [facility] Last Admin: 01/31/25 08:47 Dose: 3 ml Documented By: CAROLEE Triamcinolone Acetonide (Triamcinolone Acet 0.5 % Cream 15 Gm Tube) 1 appl TOPICAL BID [facility] Last Admin: 01/31/25 08:47 Dose: Not Given Documented By: CAROLEE Non-Admin Reason: Patient Refused Labs 01/31/25 08:20 01/28/25 08:26 Labs: Laboratory Results - last 24 hr 01/30/25 01/30/25 01/30/25 11:15 16:14 21:21 MCV MCH MCHC RDW Plt Count MPV Absolute Nucleated RBC Nucleated RBC % (auto) Hold Purple Top POC Glucose 231 H 163 H 190 H 01/31/25 01/31/25 01/31/25 06:41 07:06 08:19 MCV 79.8 L D MCH 23.8 L MCHC 29.9 L RDW 18.9 H Plt Count 271 MPV 11.6 Absolute Nucleated RBC 0.200 H Nucleated RBC % (auto) 1.8 H Hold Purple Top SEE NOTE POC Glucose 140 H 01/31/25 11:07 MCV MCH MCHC RDW Plt Count MPV Absolute Nucleated RBC Nucleated RBC % (auto) Hold Purple Top POC Glucose 265 H Assessment and Plan (1) Congestive heart failure: Status: Acute (2) Hypertension: Status: Acute (3) Coronary artery disease: Status: Acute (4) Status post aorto-coronary artery bypass graft: Status: Acute (5) Peripheral vascular disease: Status: Acute (6) Anemia: Status: Acute Plan 63-year-old female with past medical history of CAD, CABG 2018, hypertension, hyperlipidemia, TIA, peripheral vascular disease s/p multiple surgeries in [place] and more recently left SFA and popliteal stent in November at [facility] in [place], insulin-dependent diabetes type 2, hysterectomy, neuropathy, GERD who presents to the ED with chest pain found to have severe anemia Acute on chronic microcytic Anemia due to GI bleeding, probably subacute or chronic likely upper GI source in the setting of AC w/ Eliquis, antiplatelets and taking NSAIDs daily declines blood transfusion/blood products as patient is Jehovah Witness - discussed in detail with patient and daughter Continue IV iron infusions H/H remains low but overall stable, no overt bleeding noted continue IV PPI GI consult >not likely to be able to get EGD due to NSTEMI, can advance diet Hold NSAIDs, Plavix, Eliquis follow H/H but otherwise minimize blood draws Discussed with Hematology, may give Procrit x1 Toe pain right foot 5th toe bruised from hitting something Foot xray neg Acute pulmonary edema. Resolved due to uncontrolled BP s/p IV lasix, nitropaste with improvement Transition to p.o. Lasix cardiology following Chest pain/NSTEMI h/o CAD s/p CABG in 2007 trop 50.0-->107.5-> 581 type 2 due to demand from anemia cardiology consult>rec to control blood pressure HTN also has h/o orthostatic hypotension thought to be due to underlying autonomic neuropathy secondary to longstanding diabetes (as per outpatient nephro notes) Continue orthostatic precautions Is maintained on lisinopril and metoprolol, bp uncontrolled, continue baseline meds - dose of lisinopril increased to 40 mg BP overall much improved Left ankle injury/left distal fibular fracture sustained in October. follows outpatient with ortho continue WBAT with boot mild transaminitis follow LFTs PVD/chronic RLE pain hold plavix/eliquis follows with Dr. Chan outpatient followup T2DM SSI, POCs neuropathy continue gabapentin reported history of brain swelling with unclear pain medication at rehab which required transferred to [place]. Patient's family request patient is treated only with Dilaudid for pain dvt ppx - mechanical devices, chemoprophylaxis contraindicated due to severe anemia Quality Stroke Does the patient have a stroke diagnosis?: No VTE Prior VTE?: No VTE Risk Level:: Medical - moderate - high VTE Device Contraindication: N/A - Device Ordered VTE Drug Contraindication: Treatment Not Indicated
[2025-01-31 15:21] VITALS: BP 122/58; PULSE 68; RESP 16; TEMP 36.3; O2SAT 97
[2025-01-31 16:06] LABS: Glucose, Whole Blood 83 mg/dL (60-115)
[2025-01-31 19:26] VITALS: BP 122/58; PULSE 75; RESP 18; TEMP 36.7; O2SAT 98
[2025-01-31 20:40] LABS: Glucose, Whole Blood 160 mg/dL (60-115)
[2025-01-31] MEDS: Metoprolol Succinate ER 100 MG TAB.ER.24H PO (20:40)
[2025-01-31] MEDS: Triamcinolone Acet 0.5 % Cream 15 GM TUBE 1 APPL TOPICAL (20:48)
[2025-02-01] VITALS (8 sets, daily range): BP systolic 121–149; BP diastolic 54–68; PULSE 66–75; RESP 16–20; TEMP 36.5–37.1; O2SAT 93–100
[2025-02-01 00:40] LABS: Glucose, Whole Blood 136 mg/dL (60-115)
[2025-02-01] MEDS: oxyCODONE HCl Immed Release 5 MG TABLET PO ×3 (06:08→14:19)
[2025-02-01 07:30] LABS: Glucose, Whole Blood 148 mg/dL (60-115)
[2025-02-01] MEDS: 0.9 % Sodium Chloride Flush 3 ML SYRINGE IVFLUSH ×3 (07:42→21:33)
--- NOTE | 2025-02-01 09:36 | P.PNIM_ITS ---
Subjective Subjective Date of Service: 02/01/25 Interval History: Follow-up for NSTEMI, severe anemia c/o right foot pain Constitutional Constitutional: Denies chills and Denies fever(s) Physical Exam 2 Exam: Exam: Appearing in no acute distress lung sounds are clear to auscultation heart regular rate rhythm, clear S1, S2 positive bowel sounds, abdomen is soft, nontender neuro patient is alert x3, no focal deficits Vital Signs: Vital Signs: Last Vital Signs Temp 97.8 F 02/01/25 08:00 Pulse 66 02/01/25 08:00 Resp 17 02/01/25 08:00 BP 123/60 02/01/25 08:00 Pulse Ox 93 02/01/25 08:00 O2 Del Method Room Air 02/01/25 08:00 O2 Flow Rate 2 01/30/25 20:00 BMI result Body Mass Index 25.4 Objective Data Active Medications Acetaminophen (Acetaminophen 325 Mg Tablet) 975 mg PO Q6H PRN PRN Reason: Pain, Mild 1-3,fever,headache Last Admin: 01/30/25 12:33 Dose: 975 mg Documented By: CAROLEE Atorvastatin Calcium (Atorvastatin Calcium 80 Mg Tablet) 80 mg PO DAILY [facility] Last Admin: 02/01/25 07:41 Dose: 80 mg Documented By: RENÉ Dextrose (Dextrose 50 % 25 Gm/50 Ml Syringe) 25 gm IVPUSH Q15M PRN; Protocol PRN Reason: per Hypoglycemia Standing Ord. Duloxetine HCl (Duloxetine Hcl 60 Mg Capsule.) 60 mg PO DAILY [facility] Last Admin: 02/01/25 07:42 Dose: 60 mg Documented By: RENÉ Ezetimibe (Ezetimibe 10 Mg Tablet) 10 mg PO BEDTIME [facility] Last Admin: 01/31/25 20:40 Dose: 10 mg Documented By: MICHI Furosemide (Furosemide 20 Mg Tablet) 20 mg PO DAILY [facility]; Protocol Last Admin: 02/01/25 07:42 Dose: 20 mg Documented By: RENÉ Gabapentin (Gabapentin 100 Mg Capsule) 200 mg PO TID [facility] Last Admin: 02/01/25 07:41 Dose: 200 mg Documented By: RENÉ Glucose (Glucose Gel 15 Gm Gel..Gram.) 15 gm PO Q15M PRN; Protocol PRN Reason: per Hypoglycemia Standing Ord. Hydromorphone HCl (Hydromorphone Hcl 2 Mg Tablet) 2 mg PO Q4H PRN PRN Reason: Pain, Severe (Pain Scale 7-10) Last Admin: 01/31/25 20:39 Dose: 2 mg Documented By: MICHI Insulin Human Lispro (Insulin Lispro 100 Unit/Ml 3 Ml Vial) 0 unit SUBCUT QIDACHS [facility]; Protocol Last Admin: 02/01/25 07:37 Dose: Not Given Documented By: RENÉ Non-Admin Reason: No Insulin Coverage Lisinopril (Lisinopril 40 Mg Tablet) 40 mg PO DAILY [facility]; Protocol Last Admin: 02/01/25 07:41 Dose: 40 mg Documented By: RENÉ Lorazepam (Lorazepam 0.5 Mg Tablet) 0.5 mg PO Q12H PRN PRN Reason: Anxiety Last Admin: 02/01/25 01:47 Dose: 0.5 mg Documented By: MICHI Magnesium Hydroxide (Milk Of Magnesia 30 Ml Oral.Susp) 30 ml PO DAILY PRN PRN Reason: Constipation Last Admin: 01/29/25 17:05 Dose: 30 ml Documented By: MARCIAL Melatonin (Melatonin 3 Mg Tablet) 6 mg PO BEDTIME PRN PRN Reason: Insomnia Last Admin: 01/30/25 21:28 Dose: 6 mg Documented By: TERENCE Metoprolol Succinate (Metoprolol Succinate Er 100 Mg Tab.Er.24h) 100 mg PO BEDTIME [facility]; Protocol Last Admin: 01/31/25 20:40 Dose: 100 mg Documented By: MICHI Ondansetron HCl (Ondansetron Hcl 4 Mg/2 Ml Vial) 4 mg IVPUSH Q8H PRN PRN Reason: Nausea and Vomiting Last Admin: 01/28/25 11:19 Dose: 4 mg Documented By: SUNNY Oxycodone HCl (Oxycodone Hcl Immed Release 5 Mg Tablet) 5 mg PO Q4H PRN PRN Reason: Pain, Moderate(Pain Scale 4-6) Last Admin: 02/01/25 06:08 Dose: 5 mg Documented By: RENÉ Pantoprazole Sodium (Pantoprazole Sodium 40 Mg/10 Ml Vial) 40 mg IVPUSH BID@0630,1630 [facility] Last Admin: 02/01/25 06:08 Dose: 40 mg Documented By: RENÉ Sodium Chloride (0.9 % Sodium Chloride Flush 3 Ml Syringe) 3 ml IVFLUSH QSHIFT [facility] Last Admin: 02/01/25 07:42 Dose: 3 ml Documented By: RENÉ Triamcinolone Acetonide (Triamcinolone Acet 0.5 % Cream 15 Gm Tube) 1 appl TOPICAL BID [facility] Last Admin: 02/01/25 07:43 Dose: Not Given Documented By: RENÉ Non-Admin Reason: Patient Refused Labs 01/31/25 08:20 01/28/25 08:26 Labs: Laboratory Results - last 24 hr 01/31/25 01/31/25 01/31/25 11:07 16:02 20:28 POC Glucose 265 H 83 160 H 02/01/25 02/01/25 00:37 07:15 POC Glucose 136 H 148 H Assessment and Plan (1) Congestive heart failure: Status: Acute (2) Hypertension: Status: Acute (3) Coronary artery disease: Status: Acute (4) Status post aorto-coronary artery bypass graft: Status: Acute (5) Peripheral vascular disease: Status: Acute (6) Anemia: Status: Acute Plan 63-year-old female with past medical history of CAD, CABG 2017, hypertension, hyperlipidemia, TIA, peripheral vascular disease s/p multiple surgeries in [place] and more recently left SFA and popliteal stent in November at [facility] in [place], insulin-dependent diabetes type 2, hysterectomy, neuropathy, GERD who presents to the ED with chest pain found to have severe anemia Acute on chronic microcytic Anemia due to GI bleeding, probably subacute or chronic likely upper GI source in the setting of AC w/ Eliquis, antiplatelets and taking NSAIDs daily declines blood transfusion/blood products as patient is Jehovah Witness - discussed in detail with patient and daughter Continue IV iron infusions H/H remains low but overall stable, no overt bleeding noted continue IV PPI GI consult >not likely to be able to get EGD due to NSTEMI, can advance diet Hold NSAIDs, Plavix, Eliquis follow H/H but otherwise minimize blood draws Discussed with Hematology, s/p Procrit x1 01/31 Toe /foot pain right foot 5th toe bruised from hitting something Foot xray neg check uric acid for gout Acute pulmonary edema. Resolved due to uncontrolled BP s/p IV lasix, nitropaste with improvement Transition to p.o. Lasix cardiology following Chest pain/NSTEMI h/o CAD s/p CABG in 2007 trop 50.0-->107.5-> 581 type 2 due to demand from anemia cardiology consult>rec to control blood pressure HTN also has h/o orthostatic hypotension thought to be due to underlying autonomic neuropathy secondary to longstanding diabetes (as per outpatient nephro notes) Continue orthostatic precautions Is maintained on lisinopril and metoprolol, bp uncontrolled, continue baseline meds - dose of lisinopril increased to 40 mg BP overall much improved Left ankle injury/left distal fibular fracture sustained in October. follows outpatient with ortho continue WBAT with boot mild transaminitis follow LFTs PVD/chronic RLE pain hold plavix/eliquis follows with Dr. Chan outpatient followup T2DM SSI, POCs neuropathy continue gabapentin reported history of brain swelling with unclear pain medication at rehab which required transferred to [place]. Patient's family request patient is treated only with Dilaudid for pain dvt ppx - mechanical devices, chemoprophylaxis contraindicated due to severe anemia Quality Stroke Does the patient have a stroke diagnosis?: No VTE Prior VTE?: No VTE Risk Level:: Medical - moderate - high VTE Device Contraindication: N/A - Device Ordered VTE Drug Contraindication: Treatment Not Indicated
[2025-02-01 10:26] LABS: Uric Acid 5.4 mg/dL (2.4-5.7)
[2025-02-01 10:39] LABS: Hematocrit 20.7 % (37.0-47.0); Hemoglobin 6.3 g/dl (12.0-16.0)
--- NOTE | 2025-02-01 10:44 | HO.PM.IMPN ---
Subjective Subjective Date of Service: 02/01/25 Interval History: Follow-up for NSTEMI, severe anemia c/o right foot pain Constitutional Constitutional: Denies chills and Denies fever(s) Physical Exam Exam: Exam: Appearing in no acute distress lung sounds are clear to auscultation heart regular rate rhythm, clear S1, S2 positive bowel sounds, abdomen is soft, nontender neuro patient is alert x3, no focal deficits Right foot 5th digit bruised, mild edema to foot Vital Signs: Vital Signs: Last Vital Signs Temp 97.8 F 02/01/25 08:00 Pulse 66 02/01/25 08:00 Resp 17 02/01/25 08:00 BP 123/60 02/01/25 08:00 Pulse Ox 93 02/01/25 08:00 O2 Del Method Room Air 02/01/25 08:00 O2 Flow Rate 2 01/30/25 20:00 BMI result Body Mass Index 25.4 Objective Data Active Medications Acetaminophen (Acetaminophen 325 Mg Tablet) 975 mg PO Q6H PRN PRN Reason: Pain, Mild 1-3,fever,headache Last Admin: 01/30/25 12:33 Dose: 975 mg Documented By: CAROLEE Atorvastatin Calcium (Atorvastatin Calcium 80 Mg Tablet) 80 mg PO DAILY [facility] Last Admin: 02/01/25 07:41 Dose: 80 mg Documented By: RENÉ Dextrose (Dextrose 50 % 25 Gm/50 Ml Syringe) 25 gm IVPUSH Q15M PRN; Protocol PRN Reason: per Hypoglycemia Standing Ord. Duloxetine HCl (Duloxetine Hcl 60 Mg Capsule.) 60 mg PO DAILY [facility] Last Admin: 02/01/25 07:42 Dose: 60 mg Documented By: RENÉ Ezetimibe (Ezetimibe 10 Mg Tablet) 10 mg PO BEDTIME [facility] Last Admin: 01/31/25 20:40 Dose: 10 mg Documented By: MICHI Furosemide (Furosemide 20 Mg Tablet) 20 mg PO DAILY [facility]; Protocol Last Admin: 02/01/25 07:42 Dose: 20 mg Documented By: RENÉ Gabapentin (Gabapentin 100 Mg Capsule) 200 mg PO TID [facility] Last Admin: 02/01/25 07:41 Dose: 200 mg Documented By: RENÉ Glucose (Glucose Gel 15 Gm Gel..Gram.) 15 gm PO Q15M PRN; Protocol PRN Reason: per Hypoglycemia Standing Ord. Hydromorphone HCl (Hydromorphone Hcl 2 Mg Tablet) 2 mg PO Q4H PRN PRN Reason: Pain, Severe (Pain Scale 7-10) Last Admin: 01/31/25 20:39 Dose: 2 mg Documented By: MICHI Insulin Human Lispro (Insulin Lispro 100 Unit/Ml 3 Ml Vial) 0 unit SUBCUT QIDACHS [facility]; Protocol Last Admin: 02/01/25 07:37 Dose: Not Given Documented By: RENÉ Non-Admin Reason: No Insulin Coverage Lisinopril (Lisinopril 40 Mg Tablet) 40 mg PO DAILY [facility]; Protocol Last Admin: 02/01/25 07:41 Dose: 40 mg Documented By: RENÉ Lorazepam (Lorazepam 0.5 Mg Tablet) 0.5 mg PO Q12H PRN PRN Reason: Anxiety Last Admin: 02/01/25 01:47 Dose: 0.5 mg Documented By: MICHI Magnesium Hydroxide (Milk Of Magnesia 30 Ml Oral.Susp) 30 ml PO DAILY PRN PRN Reason: Constipation Last Admin: 01/29/25 17:05 Dose: 30 ml Documented By: MARCIAL Melatonin (Melatonin 3 Mg Tablet) 6 mg PO BEDTIME PRN PRN Reason: Insomnia Last Admin: 01/30/25 21:28 Dose: 6 mg Documented By: TERENCE Metoprolol Succinate (Metoprolol Succinate Er 100 Mg Tab.Er.24h) 100 mg PO BEDTIME [facility]; Protocol Last Admin: 01/31/25 20:40 Dose: 100 mg Documented By: MICHI Ondansetron HCl (Ondansetron Hcl 4 Mg/2 Ml Vial) 4 mg IVPUSH Q8H PRN PRN Reason: Nausea and Vomiting Last Admin: 01/28/25 11:19 Dose: 4 mg Documented By: SUNNY Oxycodone HCl (Oxycodone Hcl Immed Release 5 Mg Tablet) 5 mg PO Q4H PRN PRN Reason: Pain, Moderate(Pain Scale 4-6) Last Admin: 02/01/25 10:26 Dose: 5 mg Documented By: RENÉ Pantoprazole Sodium (Pantoprazole Sodium 40 Mg/10 Ml Vial) 40 mg IVPUSH BID@5030,1400 [facility] Last Admin: 02/01/25 06:08 Dose: 40 mg Documented By: RENÉ Sodium Chloride (0.9 % Sodium Chloride Flush 3 Ml Syringe) 3 ml IVFLUSH QSHIFT [facility] Last Admin: 02/01/25 07:42 Dose: 3 ml Documented By: RENÉ Triamcinolone Acetonide (Triamcinolone Acet 0.5 % Cream 15 Gm Tube) 1 appl TOPICAL BID [facility] Last Admin: 02/01/25 07:43 Dose: Not Given Documented By: RENÉ Non-Admin Reason: Patient Refused Labs 02/01/25 10:02 01/28/25 08:26 Labs: Laboratory Results - last 24 hr 01/31/25 01/31/25 01/31/25 11:07 16:02 20:28 POC Glucose 265 H 83 160 H Uric Acid 02/01/25 02/01/25 02/01/25 00:37 07:15 10:02 POC Glucose 136 H 148 H Uric Acid 5.4 Assessment and Plan (1) Congestive heart failure: Status: Acute (2) Hypertension: Status: Acute (3) Coronary artery disease: Status: Acute (4) Status post aorto-coronary artery bypass graft: Status: Acute (5) Peripheral vascular disease: Status: Acute (6) Anemia: Status: Acute Plan 63-year-old female with past medical history of CAD, CABG 2017, hypertension, hyperlipidemia, TIA, peripheral vascular disease s/p multiple surgeries in [place] and more recently left SFA and popliteal stent in November at [facility] in [place], insulin-dependent diabetes type 2, hysterectomy, neuropathy, GERD who presents to the ED with chest pain found to have severe anemia Acute on chronic microcytic Anemia due to GI bleeding, probably subacute or chronic likely upper GI source in the setting of AC w/Eliquis, antiplatelets and taking NSAIDs daily declines blood transfusion/blood products as patient is Jehovah Witness - discussed in detail with patient and daughter Continue IV iron infusions H/H remains low but overall stable, no overt bleeding noted continue IV PPI GI consult >not likely to be able to get EGD due to NSTEMI, can advance diet Hold NSAIDs, Plavix, Eliquis follow H/H but otherwise minimize blood draws Discussed with Hematology, s/p Procrit x1 01/31 Toe /foot pain right foot 5th toe bruised from hitting something normal uric acid , neg venous doppler, neg xray Acute pulmonary edema. Resolved due to uncontrolled BP s/p IV lasix, nitropaste with improvement Transition to p.o. Lasix cardiology following Chest pain/NSTEMI h/o CAD s/p CABG in 2007 trop 50.0-->107.5-> 581 type 2 due to demand from anemia cardiology consult>rec to control blood pressure HTN also has h/o orthostatic hypotension thought to be due to underlying autonomic neuropathy secondary to longstanding diabetes (as per outpatient nephro notes) Continue orthostatic precautions Is maintained on lisinopril and metoprolol, bp uncontrolled, continue baseline meds - dose of lisinopril increased to 40 mg BP overall much improved Left ankle injury/left distal fibular fracture sustained in October. follows outpatient with ortho continue WBAT with boot mild transaminitis follow LFTs PVD/chronic RLE pain hold plavix/eliquis follows with Dr. Chan outpatient followup T2DM SSI, POCs neuropathy continue gabapentin reported history of brain swelling with unclear pain medication at rehab which required transferred to [place]. Patient's family request patient is treated only with Dilaudid for pain dvt ppx - mechanical devices, chemoprophylaxis contraindicated due to severe anemia Quality Stroke Does the patient have a stroke diagnosis?: No VTE Prior VTE?: No VTE Risk Level:: Medical - moderate - high VTE Device Contraindication: N/A - Device Ordered VTE Drug Contraindication: Treatment Not Indicated
--- NOTE | 2025-02-01 11:11 | MHC.CM.PN ---
PER MD ROUNDS, PT NOT READY TO DC DCP; HOME RESUME [facility] TO TRANSPORT
[2025-02-01 12:01] LABS: Glucose, Whole Blood 208 mg/dL (60-115)
--- NOTE | 2025-02-01 13:49 | MHC.CM.PN ---
PT IS AWARE STR WAS RECOMMENDED, HOWEVER REPORTS SHE PLANS TO DC HOME SHE ASKED ABOUT WEEKLY IRON INFUSIONS, QUESTION RELAYED TO PROVIDER DCP; HOME WITH [facility] VIA PRIVATE TRANSPORT
--- NOTE | 2025-02-01 19:09 | P.PNGI_ITS ---
Subjective Subjective Date of Service: 02/01/25 Interval History: History from patient and her RN. There has been no further melena. She denies N/V/anorexia/abdominal pain/GERD symptoms. She only complains of pain in her lower extremities. She has received IV Iron and Procrit with a slow increase in her Hgb. Critical Care Time (minutes): 0 Physical Exam 2 Vital Signs: Vital Signs: Last Vital Signs Temp 97.7 F 02/01/25 15:55 Pulse 67 02/01/25 15:55 Resp 17 02/01/25 15:55 BP 140/61 H 02/01/25 15:55 Pulse Ox 97 02/01/25 15:55 O2 Del Method Room Air 02/01/25 15:55 O2 Flow Rate 2 01/30/25 20:00 BMI result Body Mass Index 25.4 Const: General: cooperative, comfortable, no acute distress, alert and awake GI: Other: Abd-Soft, NT, +BS Objective Data Labs 02/01/25 10:02 01/28/25 08:26 Labs: Laboratory Results - last 24 hr 01/31/25 02/01/25 02/01/25 20:28 00:37 07:15 Hgb Hct POC Glucose 160 H 136 H 148 H Uric Acid 02/01/25 02/01/25 10:02 11:12 Hgb 6.3 L* Hct 20.7 L* POC Glucose 208 H Uric Acid 5.4 Microbiology Microbiology Results: Microbiology 01/27/25 Unknown Urine clean catch - Clean Catch Midstream Urine Culture - Final No growth. Procedures Date of Service Date of Service: 02/01/25 Progress Note: A&P Assessment and plan (1) Anemia: Status: Acute (2) GI bleed: Status: Acute (3) Melena: Status: Acute Assessment and Plan: Imp/Rec: Overall, the patient is stable from a GI standpoint. She denies any current GI symptoms and has had no further signs of GI bleeding. Her Hgb is slowly rising with the Procrit and IV Iron. Given the clinical history, I suspect the etiology of her UGI bleed was either erosive gastritis and/or ulcer disease in the setting of NSAIDs, Eliquis, and Clopidogrel usage. I do not think an upper endoscopy is presently required given her stable clinical appearance, the low yield of the procedure at this point, and her continued relatively higher risk of the procedure due to her comorbidities and refusal of blood products. 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 I would start her on oral Iron as well. She can probably go back on one of the blood thinners at some point as long as she continues her PPI, oral Iron, and avoidance of all aspirin and NSAIDs care home. Please advise if I can be of any further assistance. Thanks Time Spent With Patient Time: Total time managing care of this patient today ____ minutes. Quality Stroke Does the patient have a stroke diagnosis?: No VTE Prior VTE?: No VTE Risk Level:: Medical - moderate - high VTE Device Contraindication: N/A - Device Ordered VTE Drug Contraindication: Treatment Not Indicated
[2025-02-01 21:11] LABS: Glucose, Whole Blood 258 mg/dL (60-115)
[2025-02-01] MEDS: Metoprolol Succinate ER 100 MG TAB.ER.24H PO (21:31)
[2025-02-01] MEDS: Triamcinolone Acet 0.5 % Cream 15 GM TUBE 1 APPL TOPICAL (21:34)
[2025-02-01] MEDS: Milk of Magnesia 30 ML ORAL.SUSP PO (21:44)
[2025-02-02] VITALS (7 sets, daily range): BP systolic 126–134; BP diastolic 60–62; PULSE 62–77; RESP 16–20; TEMP 36.3–36.7; O2SAT 95–99
[2025-02-02 07:36] LABS: Glucose, Whole Blood 167 mg/dL (60-115)
[2025-02-02] MEDS: 0.9 % Sodium Chloride Flush 3 ML SYRINGE IVFLUSH ×3 (08:05→20:45)
[2025-02-02] MEDS: Triamcinolone Acet 0.5 % Cream 15 GM TUBE 1 APPL TOPICAL (08:05)
--- NOTE | 2025-02-02 11:12 | HO.PM.IMPN ---
Subjective Subjective Date of Service: 02/02/25 Interval History: Follow-up for NSTEMI, severe anemia c/o right leg pain Constitutional Constitutional: Denies chills and Denies fever(s) Physical Exam Exam: Exam: Appearing in no acute distress lung sounds are clear to auscultation heart regular rate rhythm, clear S1, S2 positive bowel sounds, abdomen is soft, nontender neuro patient is alert x3, no focal deficits Mild bruising to right 5th toe Vital Signs: Vital Signs: Last Vital Signs Temp 97.4 F 02/02/25 10:57 Pulse 62 02/02/25 10:57 Resp 18 02/02/25 10:57 BP 127/61 02/02/25 10:57 Pulse Ox 95 02/02/25 10:57 O2 Del Method Room Air 02/02/25 10:57 O2 Flow Rate 2 01/30/25 20:00 BMI result Body Mass Index 25.4 Objective Data Active Medications Acetaminophen (Acetaminophen 325 Mg Tablet) 975 mg PO Q6H PRN PRN Reason: Pain, Mild 1-3,fever,headache Last Admin: 02/01/25 13:34 Dose: 975 mg Documented By: RENÉ Atorvastatin Calcium (Atorvastatin Calcium 80 Mg Tablet) 80 mg PO DAILY [facility] Last Admin: 02/02/25 08:00 Dose: 80 mg Documented By: HARMAN Dextrose (Dextrose 50 % 25 Gm/50 Ml Syringe) 25 gm IVPUSH Q15M PRN; Protocol PRN Reason: per Hypoglycemia Standing Ord. Duloxetine HCl (Duloxetine Hcl 60 Mg Capsule.Dr) 60 mg PO DAILY [facility] Last Admin: 02/02/25 08:00 Dose: 60 mg Documented By: HARMAN Ezetimibe (Ezetimibe 10 Mg Tablet) 10 mg PO BEDTIME [facility] Last Admin: 02/01/25 21:32 Dose: 10 mg Documented By: MICHI Furosemide (Furosemide 20 Mg Tablet) 20 mg PO DAILY [facility]; Protocol Last Admin: 02/02/25 08:00 Dose: 20 mg Documented By: HARMAN Gabapentin (Gabapentin 100 Mg Capsule) 200 mg PO TID [facility] Last Admin: 02/02/25 08:00 Dose: 200 mg Documented By: HARMAN Glucose (Glucose Gel 15 Gm Gel..Gram.) 15 gm PO Q15M PRN; Protocol PRN Reason: per Hypoglycemia Standing Ord. Insulin Human Lispro (Insulin Lispro 100 Unit/Ml 3 Ml Vial) 0 unit SUBCUT QIDACHS [facility]; Protocol Last Admin: 02/02/25 07:59 Dose: 2 unit Documented By: HARMAN Lisinopril (Lisinopril 40 Mg Tablet) 40 mg PO DAILY [facility]; Protocol Last Admin: 02/02/25 08:00 Dose: 40 mg Documented By: HARMAN Lorazepam (Lorazepam 0.5 Mg Tablet) 0.5 mg PO Q12H PRN PRN Reason: Anxiety Last Admin: 02/02/25 08:03 Dose: 0.5 mg Documented By: HARMAN Magnesium Hydroxide (Milk Of Magnesia 30 Ml Oral.Susp) 30 ml PO DAILY PRN PRN Reason: Constipation Last Admin: 02/01/25 21:44 Dose: 30 ml Documented By: MICHI Melatonin (Melatonin 3 Mg Tablet) 6 mg PO BEDTIME PRN PRN Reason: Insomnia Last Admin: 02/01/25 21:31 Dose: 6 mg Documented By: MICHI Metoprolol Succinate (Metoprolol Succinate Er 100 Mg Tab.Er.24h) 100 mg PO BEDTIME [facility]; Protocol Last Admin: 02/01/25 21:31 Dose: 100 mg Documented By: MICHI Ondansetron HCl (Ondansetron Hcl 4 Mg/2 Ml Vial) 4 mg IVPUSH Q8H PRN PRN Reason: Nausea and Vomiting Last Admin: 01/28/25 11:19 Dose: 4 mg Documented By: SUNNY Oxycodone HCl (Oxycodone Hcl Immed Release 5 Mg Tablet) 5 mg PO Q4H PRN PRN Reason: Pain, Moderate(Pain Scale 4-6) Last Admin: 02/01/25 14:19 Dose: 5 mg Documented By: RENÉ Sodium Chloride (0.9 % Sodium Chloride Flush 3 Ml Syringe) 3 ml IVFLUSH QSHIFT [facility] Last Admin: 02/02/25 08:05 Dose: 3 ml Documented By: HARMAN Triamcinolone Acetonide (Triamcinolone Acet 0.5 % Cream 15 Gm Tube) 1 appl TOPICAL BID [facility] Last Admin: 02/02/25 08:05 Dose: 1 appl Documented By: HARMAN Labs 02/02/25 12:57 02/02/25 12:57 Labs: Laboratory Results - last 24 hr 02/01/25 02/01/25 02/02/25 11:12 21:06 07:28 POC Glucose 208 H 258 H 167 H Assessment and Plan (1) Congestive heart failure: Status: Acute (2) Hypertension: Status: Acute (3) Coronary artery disease: Status: Acute (4) Status post aorto-coronary artery bypass graft: Status: Acute (5) Peripheral vascular disease: Status: Acute (6) Anemia: Status: Acute Plan 63-year-old female with past medical history of CAD, CABG 2017, hypertension, hyperlipidemia, TIA, peripheral vascular disease s/p multiple surgeries in [place] and more recently left SFA and popliteal stent in November at [facility] in [place], insulin-dependent diabetes type 2, hysterectomy, neuropathy, GERD who presents to the ED with chest pain found to have severe anemia Acute on chronic microcytic Anemia due to GI bleeding, probably subacute or chronic secondary to gastritis from blood thinner and plavix likely upper GI source in the setting of AC w/Eliquis, antiplatelets and taking NSAIDs daily declines blood transfusion/blood products as patient is Jehovah Witness - discussed in detail with patient and daughter s/p IV iron infusions x5 days H/H remains low but overall stable, no overt bleeding noted GI consult >no EGD due to anemia and high risk patient, stop aspirin and no nsaids Hold NSAIDs, Plavix, Eliquis follow H/H but otherwise minimize blood draws Discussed with Hematology, s/p Procrit x1 01/31 nephro ok with IV protonix Oversedation likely from frequent dilaudid dose lowered to 1 mg Q4h as needed continue tylenol as needed daughter also stated that patient has some cognitive difficulties including forgetfulness so that is likely also contributing Toe /foot /leg pain right foot 5th toe bruised from hitting something normal uric acid , neg venous doppler, neg xray likely from previous angio, has had ongoing issues with pain due to this Acute pulmonary edema. Resolved due to uncontrolled BP s/p IV lasix, nitropaste with improvement Transition to p.o. Lasix cardiology following Chest pain/NSTEMI h/o CAD s/p CABG in 2007 trop 50.0>107.5> 581 type 2 due to demand from anemia cardiology consult>rec to control blood pressure HTN also has h/o orthostatic hypotension thought to be due to underlying autonomic neuropathy secondary to longstanding diabetes (as per outpatient nephro notes) Continue orthostatic precautions Is maintained on lisinopril and metoprolol, bp uncontrolled, continue baseline meds - dose of lisinopril increased to 40 mg BP overall much improved Left ankle injury/left distal fibular fracture sustained in October. follows outpatient with ortho continue WBAT mild transaminitis follow LFTs PVD/chronic RLE pain hold plavix/eliquis follows with Dr. Chan, will discuss re possible need for us doppler outpatient followup T2DM SSI, POCs neuropathy continue gabapentin dvt ppx - mechanical devices, chemoprophylaxis contraindicated due to severe anemia Quality Stroke Does the patient have a stroke diagnosis?: No VTE Prior VTE?: No VTE Risk Level:: Medical - moderate - high VTE Device Contraindication: N/A - Device Ordered VTE Drug Contraindication: Treatment Not Indicated
[2025-02-02 11:35] LABS: Glucose, Whole Blood 166 mg/dL (60-115)
--- NOTE | 2025-02-02 12:02 | P.CDIM_ITS ---
PROVIDER RESPONSE TEXT: To clarify, the appropriate diagnosis supported by the clinical indicators: Other (explain): gastritis QUERY TEXT: PHYSICIAN'S DOCUMENTATION REQUEST Date of Query: 02/02/2025 08:06 AM EDT Patient Name: Vee Parisi Admit Date: 01/27/2025 Dear Rebeca Lau REEL WINDER, A review of the medical record indicates additional documentation may be needed. Please review below and update the documentation accordingly. Clinical Indicators: Per Hospitalist progress note 02/01/25: Acute on chronic microcytic Anemia due to GI bleeding, probably subacute or chronic likely upper GI source in the setting of AC w/Eliquis, antiplatelet and taking NSAIDs daily declines blood transfusion/blood products as patient is Jehovah Witness IV iron infusions, PPI, Procrit x1 Based on the above, could you clarify which of the following is the most likely type of anemia you are evaluating, treating, and/or monitoring? Hemorrhagic disorder due to extrinsic circulating anticoagulants with Acute blood loss anemia Hemorrhagic disorder due to extrinsic circulating anticoagulants Acute blood loss anemia F Other (explain) Clinically unable to determine (explain) Thank you, Sarah Lee RN Use of terms such as suspected, likely, concern for, or probable (associated with a specific diagnosis that is being evaluated, monitored, or treated as if it exists) are acceptable and can be coded in the inpatient setting, when documented at the time of discharge. Please use your independent medical judgment in providing your response. THIS QUERY IS PART OF THE PERMANENT MEDICAL RECORD
--- NOTE | 2025-02-02 13:00 | MHC.CM.PN ---
Addendum entered by Zuri Nolan 02/02/25 14:10: [facility], pt accepted bed [facility]. Per CANDY CUTTER HAND, discharge on hold now. Original Note: EMR reviewed and per MD rounds, pt is medically cleared for discharge today. Pt is now agreeable with going to STR, STR referrals placed, awaiting bed offer.
[2025-02-02 13:10] LABS: Hematocrit 22.1 % (37.0-47.0); Mean Corpuscular HGB Conc 30.3 g/dl (31.0-35.0); Mean Corpuscular Hemoglobin 25.6 pg (27.0-33.0); Mean Corpuscular Volume 84.4 fL (80.0-98.0); NRBC Abs Auto 0.070 X10*3/uL (0.0-0.012); NRBC Pct Auto 0.9 /100WBC (0.0-0.2); Platelet Count 229 X10*3/uL (160-400); Red Blood Count 2.62 X10*6/uL (4.20-5.50); White Blood Count 7.7 X10*3/uL (4.8-10.8)
[2025-02-02 13:17] LABS: Hemoglobin 6.7 g/dl (12.0-16.0)
[2025-02-02 13:32] LABS: Anion Gap 11 (12-20); Blood Urea Nitrogen 12 mg/dL (9-16); Calcium 8.3 mg/dL (8.4-10.2); Carbon Dioxide 29 mmol/L (22-29); Chloride 103 mmol/L (96-108); Creatinine Clr Calc Pharmacy 60.8; Estimated Glomerular Filt Rate > 60; Iron 41 mcg/dL (30-160); Percent Iron Saturation 15 % (15-50); Potassium 4.0 mmol/L (3.3-5.1); Sodium 139 mmol/L (135-145); Total Iron Binding Capacity 272 mcg/dL (228-428); Unsaturated Iron Binding 231 ug/dL
[2025-02-02 13:48] LABS: Ferritin 377 ng/mL (10-250)
[2025-02-02 16:22] LABS: Glucose, Whole Blood 214 mg/dL (60-115)
[2025-02-02 16:38] LABS: Glucose, Whole Blood 253 mg/dL (60-115)
[2025-02-02] MEDS: Metoprolol Succinate ER 100 MG TAB.ER.24H PO (20:46)
[2025-02-02 20:57] LABS: Glucose, Whole Blood 202 mg/dL (60-115)
[2025-02-03] VITALS (7 sets, daily range): BP systolic 120–157; BP diastolic 60–70; PULSE 60–69; RESP 16–18; TEMP 36.2–36.7; O2SAT 96–100
--- NOTE | 2025-02-03 | ECG_ITS ---
Test Reason : ?chest pain Blood Pressure : */* mmHG Vent. Rate : 62 BPM Atrial Rate : 62 BPM P-R Int : 150 ms QRS Dur : 84 ms QT Int : 444 ms P-R-T Axes : 31 -48 171 degrees QTcB Int : 450 ms Normal sinus rhythm Left axis deviation Septal infarct (cited on or before 13-May-2022) Inferior infarct , age undetermined T wave abnormality, consider anterolateral ischemia Abnormal ECG When compared with ECG of 27-Jan-2025 12:10, Inferior infarct is now Present Referred By: Roxanna Peters Electronically Signed By: RAMY KRISHNAN MD
[2025-02-03 07:40] LABS: Glucose, Whole Blood 129 mg/dL (60-115)
[2025-02-03] MEDS: 0.9 % Sodium Chloride Flush 3 ML SYRINGE IVFLUSH ×3 (08:23→23:32)
[2025-02-03] MEDS: Ferrous Sulfate 324 MG TABLET.DR PO ×2 (08:27→16:22)
[2025-02-03] MEDS: Triamcinolone Acet 0.5 % Cream 15 GM TUBE 1 APPL TOPICAL ×2 (08:35→21:26)
--- NOTE | 2025-02-03 09:02 | PM.CNGS ---
History of Present Illness Consult details Consult date: 02/03/25 Reason for consult: other (pvd) Narrative: 64-year-old patient well known to me with a history of peripheral vascular disease. She reportedly had several interventions on bilateral lower extremities done down in [place]. Unclear what was done but it appears that she was having interventions every 3-4 months down there. She had been managed conservatively by our office and most recently presented to the hospital with a GI bleed. Hemoglobin was down to as low as 5.4. Today it is up to 6.7. Does complain of pain of the right lower extremity but does have motor and sensation intact. Most recently had left lower extremity intervention done at [facility] by Dr. Beaulieu. Review of Systems Review of Systems: Yes all other systems are reviewed and are negative Constitutional: Constitutional: Reports no additional constitutional complaints ENT: Reports Normal hearing present Cardiovascular: Cardiovascular: Denies chest pain, Denies chest pain at rest, Denies chest pain with activity and Denies pedal edema Respiratory: Respiratory: Denies cough Gastrointestinal: Gastrointestinal: Denies abdominal pain Musculoskeletal: Musculoskeletal: Denies abnormal gait, Denies muscle cramps and Denies radiating pain into limb Integumentary/Breasts: Skin/Breast: Denies skin ulcer and Denies wounds Neurologic: Reports Normal hearing present and Denies abnormal gait Psychiatric: Psychiatric: Reports no additional psychiatric complaints PMFSH Past Medical History Medical History Dizziness Orthostatic hypotension Stenosis of left vertebral artery CVA (cerebral vascular accident) Peripheral vascular disease Neuropathy Coronary artery disease Brain TIA Hypertension Diabetes Family History Family History Father Coronary artery disease involving coronary bypass graft Mother No problems noted. Surgical History Surgical History History of angioplasty of peripheral vessel Status post aorto-coronary artery bypass graft Social History Social History Household Members: Family Household Members Other:: lives with brother Housing: House Do you presently have visiting nurse or other home services: No Alcohol intake: never Patient Tobacco Use Status: Former Tobacco user Years Smoked: Remote smoking, quit in her 30s Second Hand Smoke Exposure: No service: No Current occupational status: unemployed Meds Allergies Allergy/AdvReac Type Severity Reaction Status Date / Time apple (Apple) Allergy Unknown APPLE PEEL Verified 01/27/25 07:21 - ITCHY THROAT nut - unspecified (nut) Allergy Unknown ITCHY Verified 01/27/25 07:21 THROAT pineapple (Pineapple) Allergy Unknown ITCHY Verified 01/27/25 07:21 THROAT amoxicillin Allergy Itching Verified 01/27/25 07:21 oxycodone (From Percocet) Allergy Anxiety Verified 01/27/25 07:21 lim AdvReac Intermediate Swelling Verified 01/27/25 07:21 DUST Allergy Unknown EYES, NOSE Uncoded 01/27/25 07:21 ITCHY - ASTHMA GRASS Allergy Unknown ITCHY EYES Uncoded 01/27/25 07:21 - THROAT pet dander AdvReac Mild Itchy Eyes Uncoded 01/27/25 07:21 Active Medications: Current Medications Acetaminophen (Acetaminophen 325 Mg Tablet) 975 mg PO Q6H PRN PRN Reason: Pain, Mild 1-3,fever,headache Last Admin: 02/02/25 20:51 Dose: 975 mg Atorvastatin Calcium (Atorvastatin Calcium 80 Mg Tablet) 80 mg PO DAILY [facility] Last Admin: 02/03/25 08:22 Dose: 80 mg Dextrose (Dextrose 50 % 25 Gm/50 Ml Syringe) 25 gm IVPUSH Q15M PRN; Protocol PRN Reason: per Hypoglycemia Standing Ord. Duloxetine HCl (Duloxetine Hcl 60 Mg Capsule.) 60 mg PO DAILY [facility] Last Admin: 02/03/25 08:22 Dose: 60 mg Ezetimibe (Ezetimibe 10 Mg Tablet) 10 mg PO BEDTIME [facility] Last Admin: 02/02/25 20:45 Dose: 10 mg Ferrous Sulfate (Ferrous Sulfate 324 Mg Tablet.) 324 mg PO BIDWM [facility] Last Admin: 02/03/25 08:27 Dose: 324 mg Furosemide (Furosemide 20 Mg Tablet) 20 mg PO DAILY [facility]; Protocol Last Admin: 02/03/25 08:22 Dose: 20 mg Gabapentin (Gabapentin 100 Mg Capsule) 200 mg PO TID [facility] Last Admin: 02/03/25 08:22 Dose: 200 mg Glucose (Glucose Gel 15 Gm Gel..Gram.) 15 gm PO Q15M PRN; Protocol PRN Reason: per Hypoglycemia Standing Ord. Hydromorphone HCl (Hydromorphone Hcl 1 Mg/Ml Syringe) 1 mg IVPUSH Q4H PRN; Protocol PRN Reason: Pain, Severe (Pain Scale 7-10) Last Admin: 02/02/25 23:44 Dose: 1 mg Insulin Human Lispro (Insulin Lispro 100 Unit/Ml 3 Ml Vial) 0 unit SUBCUT QIDACHS [facility]; Protocol Last Admin: 02/03/25 07:45 Dose: Not Given Lisinopril (Lisinopril 40 Mg Tablet) 40 mg PO DAILY [facility]; Protocol Last Admin: 02/03/25 08:22 Dose: 40 mg Lorazepam (Lorazepam 0.5 Mg Tablet) 0.5 mg PO Q12H PRN On Hold: 02/02/25 13:50 PRN Reason: Anxiety Last Admin: 02/02/25 08:03 Dose: 0.5 mg Magnesium Hydroxide (Milk Of Magnesia 30 Ml Oral.Susp) 30 ml PO DAILY PRN PRN Reason: Constipation Last Admin: 02/01/25 21:44 Dose: 30 ml Melatonin (Melatonin 3 Mg Tablet) 6 mg PO BEDTIME PRN PRN Reason: Insomnia Last Admin: 02/02/25 20:45 Dose: 6 mg Metoprolol Succinate (Metoprolol Succinate Er 100 Mg Tab.Er.24h) 100 mg PO BEDTIME [facility]; Protocol Last Admin: 02/02/25 20:46 Dose: 100 mg Ondansetron HCl (Ondansetron Hcl 4 Mg/2 Ml Vial) 4 mg IVPUSH Q8H PRN PRN Reason: Nausea and Vomiting Last Admin: 01/28/25 11:19 Dose: 4 mg Pantoprazole Sodium (Pantoprazole Sodium 40 Mg/10 Ml Vial) 40 mg IVPUSH BID@0630,1630 [facility] Last Admin: 02/03/25 06:20 Dose: 40 mg Sodium Chloride (0.9 % Sodium Chloride Flush 3 Ml Syringe) 3 ml IVFLUSH QSHIFT [facility] Last Admin: 02/03/25 08:23 Dose: 3 ml Triamcinolone Acetonide (Triamcinolone Acet 0.5 % Cream 15 Gm Tube) 1 appl TOPICAL BID [facility] Last Admin: 02/03/25 08:35 Dose: 1 appl Home Medications ?Medication ?Instructions ?Recorded ?Confirmed ?Last Taken ?Type duloxetine 60 mg capsule,delayed 60 mg PO DAILY 09/06/22 01/27/25 01/26/25 History release ezetimibe 10 mg tablet 10 mg PO BEDTIME 09/06/22 01/27/25 01/26/25 History metformin 1,000 mg tablet 1,000 mg PO BIDWM 09/06/22 01/27/25 01/26/25 History ranolazine 1,000 mg 1,000 mg PO BID 09/06/22 01/27/25 01/26/25 History tablet,extended release,12 hr insulin aspart U-100 100 unit/mL See Protocol subcut USEASDIRECTD 03/27/23 01/27/25 01/26/25 History (3 mL) subcutaneous pen (Novolog FlexPen U-100 Insulin aspart) rosuvastatin 40 mg tablet 40 mg PO DAILY 03/28/23 01/27/25 01/26/25 History metoprolol succinate 100 mg 100 mg PO BEDTIME 10/17/24 01/27/25 01/26/25 History tablet,extended release 24 hr pantoprazole 40 mg tablet,delayed 40 mg PO DAILY@0630 12/31/24 01/27/25 01/26/25 History release acetaminophen 325 mg tablet 650 mg PO Q6H PRN Fever Or Pain 01/27/25 01/27/25 Unknown History apixaban 2.5 mg tablet (Eliquis) 2.5 mg PO BID 01/27/25 01/27/25 01/26/25 History betamethasone dipropionate 0.05 % 1 appl topical BID 01/27/25 01/27/25 01/26/25 History topical cream gabapentin 100 mg capsule 200 mg PO TID 01/27/25 01/27/25 01/26/25 History lisinopril 20 mg tablet 20 mg PO DAILY 01/27/25 01/27/25 01/26/25 History naproxen sodium 220 mg tablet 220 mg PO BID PRN Pain 01/27/25 01/27/25 Unknown History (Brooke) Physical Exam Vital Signs: Vital Signs: Last Vital Signs Temp 97.4 F 02/03/25 07:44 Pulse 65 02/03/25 07:44 Resp 17 02/03/25 07:44 BP 157/70 H 02/03/25 07:44 Pulse Ox 98 02/03/25 07:44 O2 Del Method Room Air 02/03/25 07:44 O2 Flow Rate 2 01/30/25 20:00 BMI result Body Mass Index 25.4 Const: General: cooperative, healthy appearing and comfortable Orientation/consciousness: oriented to person, oriented to place and oriented to time HEENT: Head: Yes normal to inspection Neck: Neck: Yes normal visual inspection Carotids: no bruits Chest: Chest palpation & inspection: normal inspection of the chest Resp: Effort & Inspection: normal respiratory effort and able to speak in complete sentences Auscultation: clear to auscultation bilaterally, no crackles, no rales, no rhonchi and no wheezes Cardio: Other: Bilateral DP signals Rate: regular rate Rhythm: regular rhythm Heart sounds: S1 normal heart sound present and S2 normal heart sound present Bruits: no carotid bruits Peripheral pulses: Peripheral pulses 2+ throughout GI: Inspection: Yes normal to inspection Skin: Other: No lower extremity ulceration. Wounds: no wounds Hair: normal Neuro: General: oriented to person, oriented to place and oriented to time Cranial nerves: Yes CN's II-XII intact bilaterally and Yes Normal hearing present Cognition (Neuro): normal cognition Motor exam (neuro): 5/5 motor strength present throughout Extrem: Other: venous exam: No significant superficial varicosities or spider telangiectasias, minimal edema General: No clubbing, No cyanosis and No edema Psych: Appearance: grossly normal Mental Status: mental status grossly normal Speech and movement: Normal speech and movement present Results Labs 02/02/25 12:57 02/02/25 12:57 Labs: Abnormal lab results 02/01/25 02/02/25 02/02/25 Range/Units 16:24 11:29 12:57 RBC 2.62 L (4.20-5.50) X10*6/uL Hgb 6.7 L* (12.0-16.0) g/dl Hct 22.1 L (37.0-47.0) % MCH 25.6 L (27.0-33.0) pg MCHC 30.3 L (31.0-35.0) g/dl Absolute Nucleated RBC 0.070 H (0.0-0.012) X10*3/uL Nucleated RBC % (auto) 0.9 H (0.0-0.2) /100WBC Anion Gap 11 L (12-20) POC Glucose 253 H 166 H (60-115) mg/dL Random Glucose 233 H (60-115) mg/dL Calcium 8.3 L (8.4-10.2) mg/dL Ferritin 377 H (10-250) ng/mL 02/02/25 02/02/25 02/03/25 Range/Units 16:18 20:54 07:36 RBC (4.20-5.50) X10*6/uL Hgb (12.0-16.0) g/dl Hct (37.0-47.0) % MCH (27.0-33.0) pg MCHC (31.0-35.0) g/dl Absolute Nucleated RBC (0.0-0.012) X10*3/uL Nucleated RBC % (auto) (0.0-0.2) /100WBC Anion Gap (12-20) POC Glucose 214 H 202 H 129 H (60-115) mg/dL Random Glucose (60-115) mg/dL Calcium (8.4-10.2) mg/dL Ferritin (10-250) ng/mL Short CBC 02/02/25 Range/Units 12:57 WBC 7.7 (4.8-10.8) X10*3/uL Hgb 6.7 L* (12.0-16.0) g/dl Hct 22.1 L (37.0-47.0) % Plt Count 229 (160-400) X10*3/uL BMP 02/02/25 12:57 Sodium 139 Potassium 4.0 Chloride 103 Carbon Dioxide 29 BUN 12 Creatinine 0.88 Calcium 8.3 L Urine 01/27/25 Range/Units 12:54 Urine Color Yellow Urine Appearance Clear Urine pH 5.5 (5.0-9.0) Ur Specific [place] 1.015 (1.005-1.025) Urine Protein Trace (Neg-Trace) mg/dL Urine Glucose (UA) Negative (Negative) mg/dL All other labs normal. Assessment and Plan (1) Peripheral vascular disease: Status: Acute In short patient has severe peripheral vascular disease. There is no acute ischemia as motor and sensation is intact with no evidence of ulceration. Unfortunately it is unclear what was done down in [place] as she had multiple repeat interventions. At the current time would like to have stabilized hemoglobin. Due to her history of being a Church refusing blood transfusions she may be better served at a tertiary care center. She most recently had peripheral intervention performed by Dr. Bingham at [facility] Would refer back out there as an outpatient. She will follow up with us on an as-needed basis. Thank you for allowing us to assist in her care. If there are any questions or concerns please do not hesitate to contact us. Procedures Date of Service Date of Service: 02/03/25
[2025-02-03 11:39] LABS: Glucose, Whole Blood 191 mg/dL (60-115)
--- NOTE | 2025-02-03 15:10 | MHC.CM.PN ---
EMR REVIEWED, PER HOSPITALIST PT NOT YET READY FOR DC, PT WILL REMAIN INPT OVER NOC AND DTR WILL BE COMING IN TOMORROW, CM WILL CONT TO FOLLOW DC NEEDS.
[2025-02-03 16:19] LABS: Glucose, Whole Blood 271 mg/dL (60-115)
[2025-02-03] MEDS: Metoprolol Succinate ER 100 MG TAB.ER.24H PO (20:49)
[2025-02-03 20:55] LABS: Glucose, Whole Blood 96 mg/dL (60-115)
[2025-02-04 03:28] VITALS: BP 134/60; PULSE 62; RESP 16; TEMP 36.3; O2SAT 97
[2025-02-04 07:22] LABS: Glucose, Whole Blood 148 mg/dL (60-115)
[2025-02-04 07:44] VITALS: BP 125/58; PULSE 59; RESP 18; TEMP 36.2; O2SAT 96
[2025-02-04] MEDS: Ferrous Sulfate 324 MG TABLET.DR PO ×2 (08:23→17:51)
[2025-02-04] MEDS: 0.9 % Sodium Chloride Flush 3 ML SYRINGE IVFLUSH ×3 (08:25→19:45)
[2025-02-04] MEDS: Triamcinolone Acet 0.5 % Cream 15 GM TUBE 1 APPL TOPICAL ×2 (08:36→21:21)
[2025-02-04 10:04] LABS: Hematocrit 23.9 % (37.0-47.0); Hemoglobin 7.1 g/dl (12.0-16.0); Imm Gran Abs Auto 0.04 X10*3/uL (0.00-0.03); Imm Gran Pct Auto 0.6 % (0.0-0.4); Lymphocytes Absolute Auto 1.8 X10*3/uL (1.2-4.9); MANUAL DIFF FLAG SCAN; Mean Corpuscular HGB Conc 29.7 g/dl (31.0-35.0); Mean Corpuscular Hemoglobin 25.2 pg (27.0-33.0); Mean Corpuscular Volume 84.8 fL (80.0-98.0); NRBC Abs Auto 0.020 X10*3/uL (0.0-0.012); NRBC Pct Auto 0.3 /100WBC (0.0-0.2); Platelet Count 197 X10*3/uL (160-400); Red Blood Count 2.82 X10*6/uL (4.20-5.50); SCAN SMEAR FLAG 1; White Blood Count 7.2 X10*3/uL (4.8-10.8)
[2025-02-04 11:42] LABS: Glucose, Whole Blood 231 mg/dL (60-115)
[2025-02-04 12:00] VITALS: BP 120/58; PULSE 57; RESP 18; TEMP 36.6; O2SAT 97
[2025-02-04 15:41] LABS: Glucose, Whole Blood 160 mg/dL (60-115)
[2025-02-04 15:55] VITALS: BP 131/57; PULSE 64; RESP 18; TEMP 36.6; O2SAT 100
--- NOTE | 2025-02-04 15:57 | P.PNIM_ITS ---
Subjective Subjective Date of Service: 02/04/25 Interval History: No acute issues overnight. Hemoglobin up to 7.1. No signs of active bleeding Review of Systems Denies chest pain Denies shortness of breath Denies nausea vomiting diarrhea Denies fever chills Physical Exam 2 Vital Signs: Vital Signs: Last Vital Signs Temp 97.8 F 02/04/25 15:55 Pulse 64 02/04/25 15:55 Resp 18 02/04/25 15:55 BP 131/57 L 02/04/25 15:55 Pulse Ox 100 02/04/25 15:55 O2 Del Method Room Air 02/04/25 15:55 O2 Flow Rate 2 01/30/25 20:00 BMI result Body Mass Index 25.4 Const: Other: Awake alert no acute distress Resp: Other: Clear to auscultation bilaterally no rales rhonchi or wheezes Cardio: Other: No S4; positive S1-S2; no S3 murmurs rubs or gallops GI: Other: Soft nontender nondistended normoactive bowel sounds Extrem: Other: No edema bilaterally Objective Data Active Medications Acetaminophen (Acetaminophen 325 Mg Tablet) 975 mg PO Q6H PRN PRN Reason: Pain, Mild 1-3,fever,headache Last Admin: 02/04/25 05:49 Dose: 975 mg Documented By: LESLIE Atorvastatin Calcium (Atorvastatin Calcium 80 Mg Tablet) 80 mg PO DAILY [facility] Last Admin: 02/04/25 08:23 Dose: 80 mg Documented By: LASHELL Dextrose (Dextrose 50 % 25 Gm/50 Ml Syringe) 25 gm IVPUSH Q15M PRN; Protocol PRN Reason: per Hypoglycemia Standing Ord. Duloxetine HCl (Duloxetine Hcl 60 Mg Capsule.) 60 mg PO DAILY [facility] Last Admin: 02/04/25 08:22 Dose: 60 mg Documented By: LASHELL Ezetimibe (Ezetimibe 10 Mg Tablet) 10 mg PO BEDTIME [facility] Last Admin: 02/03/25 20:49 Dose: 10 mg Documented By: RAÚL Ferrous Sulfate (Ferrous Sulfate 324 Mg Tablet.) 324 mg PO BIDWM [facility] Last Admin: 02/04/25 08:23 Dose: 324 mg Documented By: LASHELL Furosemide (Furosemide 20 Mg Tablet) 20 mg PO DAILY [facility]; Protocol Last Admin: 02/04/25 08:36 Dose: 20 mg Documented By: LASHELL Gabapentin (Gabapentin 100 Mg Capsule) 200 mg PO TID [facility] Last Admin: 02/04/25 15:20 Dose: 200 mg Documented By: LASHELL Glucose (Glucose Gel 15 Gm Gel..Gram.) 15 gm PO Q15M PRN; Protocol PRN Reason: per Hypoglycemia Standing Ord. Hydromorphone HCl (Hydromorphone Hcl 1 Mg/Ml Syringe) 1 mg IVPUSH Q4H PRN; Protocol PRN Reason: Pain, Severe (Pain Scale 7-10) Last Admin: 02/04/25 12:18 Dose: 1 mg Documented By: LASHELL Insulin Human Lispro (Insulin Lispro 100 Unit/Ml 3 Ml Vial) 0 unit SUBCUT QIDACHS [facility]; Protocol Last Admin: 02/04/25 12:11 Dose: 4 unit Documented By: LASHELL Lisinopril (Lisinopril 40 Mg Tablet) 40 mg PO DAILY [facility]; Protocol Last Admin: 02/04/25 08:23 Dose: 40 mg Documented By: LASHELL Lorazepam (Lorazepam 0.5 Mg Tablet) 0.5 mg PO Q12H PRN On Hold: 02/02/25 13:50 PRN Reason: Anxiety Last Admin: 02/02/25 08:03 Dose: 0.5 mg Documented By: HARMAN Magnesium Hydroxide (Milk Of Magnesia 30 Ml Oral.Susp) 30 ml PO DAILY PRN PRN Reason: Constipation Last Admin: 02/01/25 21:44 Dose: 30 ml Documented By: MICHI Melatonin (Melatonin 3 Mg Tablet) 6 mg PO BEDTIME PRN PRN Reason: Insomnia Last Admin: 02/03/25 23:34 Dose: 6 mg Documented By: LESLIE Metoprolol Succinate (Metoprolol Succinate Er 100 Mg Tab.Er.24h) 100 mg PO BEDTIME [facility]; Protocol Last Admin: 02/03/25 20:49 Dose: 100 mg Documented By: RAÚL Ondansetron HCl (Ondansetron Hcl 4 Mg/2 Ml Vial) 4 mg IVPUSH Q8H PRN PRN Reason: Nausea and Vomiting Last Admin: 01/28/25 11:19 Dose: 4 mg Documented By: SUNNY Pantoprazole Sodium (Pantoprazole Sodium 40 Mg/10 Ml Vial) 40 mg IVPUSH BID@0630,1630 [facility] Last Admin: 02/04/25 15:20 Dose: 40 mg Documented By: LASHELL Sodium Chloride (0.9 % Sodium Chloride Flush 3 Ml Syringe) 3 ml IVFLUSH QSHIFT [facility] Last Admin: 02/04/25 15:28 Dose: 3 ml Documented By: LASHELL Triamcinolone Acetonide (Triamcinolone Acet 0.5 % Cream 15 Gm Tube) 1 appl TOPICAL BID [facility] Last Admin: 02/04/25 08:36 Dose: 1 appl Documented By: LASHELL Labs 02/04/25 09:49 02/02/25 12:57 Labs: Laboratory Results - last 24 hr 02/03/25 02/03/25 02/04/25 16:15 20:39 07:18 MCV MCH MCHC RDW Plt Count MPV Immature Gran % (Auto) Neut % (Auto) Lymph % (Auto) Snyder % (Auto) Eos % (Auto) Baso % (Auto) Lymph # (Auto) Snyder # (Auto) Eos # (Auto) Baso # (Auto) Abs Immat Gran (auto) Absolute Neuts (auto) Absolute Nucleated RBC Nucleated RBC % (auto) Smear Tech's Comments POC Glucose 271 H 96 148 H 02/04/25 02/04/25 02/04/25 09:49 11:37 15:36 MCV 84.8 MCH 25.2 L MCHC 29.7 L RDW 27.7 H Plt Count 197 MPV 11.1 Immature Gran % (Auto) 0.6 H Neut % (Auto) 60.2 Lymph % (Auto) 25.0 Snyder % (Auto) 9.8 Eos % (Auto) 3.8 Baso % (Auto) 0.6 Lymph # (Auto) 1.8 Snyder # (Auto) 0.7 Eos # (Auto) 0.3 Baso # (Auto) 0.0 Abs Immat Gran (auto) 0.04 H Absolute Neuts (auto) 4.3 Absolute Nucleated RBC 0.020 H Nucleated RBC % (auto) 0.3 H Smear Tech's Comments VERIFIED POC Glucose 231 H 160 H Assessment and Plan (1) Anemia: Status: Acute (2) Diabetes: Status: Acute (3) Peripheral vascular disease: Status: Acute Plan 63-year-old female with past medical history of CAD, CABG 2018, hypertension, hyperlipidemia, TIA, peripheral vascular disease s/p multiple surgeries in [place] and more recently left SFA and popliteal stent in November at [facility] in [place], insulin-dependent diabetes type 2, hysterectomy, neuropathy, GERD who presents to the ED with chest pain found to have severe anemia 1.Acute on chronic microcytic Anemia due to GI bleeding -declines blood transfusion/blood products as patient is Jehovah Witness -s/p IV iron infusions x5 days -good response with hemoglobin -follow CBC in a.m. -outpatient Procrit and iron repletion 2. Peripheral artery disease -multiple stents in past; seen by vascular surgery no indication for intervention at this time -symptomatic pain relief with Dilaudid -going forward interventions only in tertiary care center -continue to hold Plavix and aspirin. Can be added back when clinically appropriate 3.Chest pain/NSTEMI -type 2 due to demand from anemia -cardiology consult>rec to control blood pressure 4.HTN -acceptable control on current therapies -adjust as clinically indicated 5. Diabetes type 2 -acceptable control on current therapies -lispro correctional scale -adjust as indicated dvt ppx - mechanical devices, chemoprophylaxis contraindicated due to severe anemia Quality Stroke Does the patient have a stroke diagnosis?: No VTE Prior VTE?: No VTE Risk Level:: Medical - moderate - high VTE Device Contraindication: N/A - Device Ordered VTE Drug Contraindication: Treatment Not Indicated
[2025-02-04 19:39] VITALS: BP 116/52; PULSE 70; RESP 16; TEMP 36.6; O2SAT 100
[2025-02-04] MEDS: Metoprolol Succinate ER 100 MG TAB.ER.24H PO (19:43)
[2025-02-04 21:06] LABS: Glucose, Whole Blood 265 mg/dL (60-115)
[2025-02-04 23:25] VITALS: BP 136/61; PULSE 65; RESP 16; TEMP 36.3; O2SAT 96
[2025-02-05 03:25] VITALS: BP 154/67; PULSE 76; RESP 16; TEMP 36.5; O2SAT 100
[2025-02-05 07:05] VITALS: BP 146/77; PULSE 66; RESP 18; TEMP 36.3; O2SAT 100
[2025-02-05 07:41] LABS: Glucose, Whole Blood 118 mg/dL (60-115)
[2025-02-05] MEDS: Ferrous Sulfate 324 MG TABLET.DR PO (07:43)
[2025-02-05] MEDS: Triamcinolone Acet 0.5 % Cream 15 GM TUBE 1 APPL TOPICAL (07:56)
--- NOTE | 2025-02-05 08:19 | P.CNHO_ITS ---
Subjective - Subjective Chief complaint: Leg cramps, weakness Patient: new to practice Consult date: 02/05/25 Primary Care Provider: Maria R Sarmiento MD Bass Singer Utilized?: No - Palestinian Speaking HPI - Consult Narrative Reason for consult: Anemia, Orthodoxy Narrative: Vee Parisi is a 64 year old female with multiple medical problems including CAD, status post CABG, severe peripheral vascular disease, insulin-dependent diabetes type 2, hysterectomy, neuropathy, GERD who presents to the ED with chest pain found to have severe anemia who is admitted for severe anemia. She presented on 01/27/2025 with complaints of chest pain. She did have elevation in troponin however her hemoglobin came back at 5.9 gram/dL. She was noted to have Hemoccult-positive stools. Patient was started on IV iron infusions. After her troponins normalized, she was started on ABDIRASHID therapy with Procrit. She has been on longstanding aspirin and Plavix for her peripheral vascular disease. In October 2024 she developed occlusion of left femoral artery stent graft. Patient states that she had procedure done at [facility] in [place] for this occlusion. She says pain in her left leg has resolved. She however has continued cramping pain in her right leg. She has not seen a public health physician in many years. She lives at home with her brother. She has 2 daughters. No history of smoking or alcohol use. Review of Systems - Constitutional Reports as per HPI, Reports lack of energy, Reports malaise - Neurologic Reports hearing normal, Denies abnormal gait [facility] Medical History: Medical History (Last Reviewed 02/01/25 @ 12:56 by Juliana Talamantes, ARGENIS) Brain TIA Coronary artery disease CVA (cerebral vascular accident) Diabetes Dizziness Hypertension Neuropathy Orthostatic hypotension Peripheral vascular disease Stenosis of left vertebral artery Family History: Family History (Last Reviewed 01/27/25 @ 17:34 by Maria Teresa Kruger PA-C) Father Coronary artery disease involving coronary bypass graft Mother No problems noted. Surgical History: Surgical History (Last Reviewed 02/01/25 @ 12:56 by Juliana Talamantes, PT) History of angioplasty of peripheral vessel Status post aorto-coronary artery bypass graft Social History: Social History (Last Reviewed 01/27/25 @ 17:34 by Maria Teresa Kruger PA-C) Living Situation History: Household Members: Family Household Members Other:: lives with brother Housing: House Do you presently have visiting nurse or other home services: No Tobacco History: Patient Tobacco Use Status: Former Tobacco user Years Smoked: Remote smoking, quit in her 30s Second Hand Smoke Exposure: No Occupation Assessmet: service: No Current occupational status: unemployed Home Medications and Allergies Current Medications: Current Medications Acetaminophen (Acetaminophen 325 Mg Tablet) 975 mg PO Q6H PRN PRN Reason: Pain, Mild 1-3,fever,headache Last Admin: 02/04/25 19:43 Dose: 975 mg Atorvastatin Calcium (Atorvastatin Calcium 80 Mg Tablet) 80 mg PO DAILY [facility] Last Admin: 02/05/25 07:43 Dose: 80 mg Dextrose (Dextrose 50 % 25 Gm/50 Ml Syringe) 25 gm IVPUSH Q15M PRN; Protocol PRN Reason: per Hypoglycemia Standing Ord. Duloxetine HCl (Duloxetine Hcl 60 Mg Capsule.) 60 mg PO DAILY [facility] Last Admin: 02/05/25 07:43 Dose: 60 mg Ezetimibe (Ezetimibe 10 Mg Tablet) 10 mg PO BEDTIME [facility] Last Admin: 02/04/25 19:43 Dose: 10 mg Ferrous Sulfate (Ferrous Sulfate 324 Mg Tablet.) 324 mg PO BIDWM [facility] Last Admin: 02/05/25 07:43 Dose: 324 mg Furosemide (Furosemide 20 Mg Tablet) 20 mg PO DAILY [facility]; Protocol Last Admin: 02/05/25 07:43 Dose: 20 mg Gabapentin (Gabapentin 100 Mg Capsule) 200 mg PO TID [facility] Last Admin: 02/05/25 07:43 Dose: 200 mg Glucose (Glucose Gel 15 Gm Gel..Gram.) 15 gm PO Q15M PRN; Protocol PRN Reason: per Hypoglycemia Standing Ord. Hydromorphone HCl (Hydromorphone Hcl 1 Mg/Ml Syringe) 1 mg IVPUSH Q4H PRN; Protocol PRN Reason: Pain, Severe (Pain Scale 7-10) Last Admin: 02/05/25 04:45 Dose: 1 mg Insulin Human Lispro (Insulin Lispro 100 Unit/Ml 3 Ml Vial) 0 unit SUBCUT QIDACHS [facility]; Protocol Last Admin: 02/05/25 07:48 Dose: Not Given Lisinopril (Lisinopril 40 Mg Tablet) 40 mg PO DAILY [facility]; Protocol Last Admin: 02/05/25 07:43 Dose: 40 mg Lorazepam (Lorazepam 0.5 Mg Tablet) 0.5 mg PO Q12H PRN On Hold: 02/02/25 13:50 PRN Reason: Anxiety Last Admin: 02/02/25 08:03 Dose: 0.5 mg Magnesium Hydroxide (Milk Of Magnesia 30 Ml Oral.Susp) 30 ml PO DAILY PRN PRN Reason: Constipation Last Admin: 02/01/25 21:44 Dose: 30 ml Melatonin (Melatonin 3 Mg Tablet) 6 mg PO BEDTIME PRN PRN Reason: Insomnia Last Admin: 02/03/25 23:34 Dose: 6 mg Metoprolol Succinate (Metoprolol Succinate Er 100 Mg Tab.Er.24h) 100 mg PO BEDTIME [facility]; Protocol Last Admin: 02/04/25 19:43 Dose: 100 mg Ondansetron HCl (Ondansetron Hcl 4 Mg/2 Ml Vial) 4 mg IVPUSH Q8H PRN PRN Reason: Nausea and Vomiting Last Admin: 01/28/25 11:19 Dose: 4 mg Pantoprazole Sodium (Pantoprazole Sodium 40 Mg/10 Ml Vial) 40 mg IVPUSH BID@0630,1630 [facility] Last Admin: 02/05/25 04:45 Dose: 40 mg Sodium Chloride (0.9 % Sodium Chloride Flush 3 Ml Syringe) 3 ml IVFLUSH QSHIFT [facility] Last Admin: 02/04/25 19:45 Dose: 3 ml Triamcinolone Acetonide (Triamcinolone Acet 0.5 % Cream 15 Gm Tube) 1 appl TOPICAL BID [facility] Last Admin: 02/05/25 07:56 Dose: 1 appl Home Medications ?Medication ?Instructions ?Recorded ?Confirmed ?Type duloxetine 60 mg capsule,delayed 60 mg PO DAILY 09/06/22 01/27/25 History release ezetimibe 10 mg tablet 10 mg PO BEDTIME 09/06/22 01/27/25 Histo ry metformin 1,000 mg tablet 1,000 mg PO BIDWM 09/06/22 01/27/25 Hist ory ranolazine 1,000 mg 1,000 mg PO BID 09/06/22 01/27/25 Histor y tablet,extended release,12 hr insulin aspart U-100 100 unit/mL See Protocol subcut USEASDIRECTD 03/27/23 01/27/25 History (3 mL) subcutaneous pen (Novolog FlexPen U-100 Insulin aspart) rosuvastatin 40 mg tablet 40 mg PO DAILY 03/28/23 01/27/25 History metoprolol succinate 100 mg 100 mg PO BEDTIME 10/17/24 01/27/25 Hist ory tablet,extended release 24 hr pantoprazole 40 mg tablet,delayed 40 mg PO DAILY@0630 12/31/24 01/27/25 Hi story release acetaminophen 325 mg tablet 650 mg PO Q6H PRN Fever Or Pain 01/27/25 01/27/25 History apixaban 2.5 mg tablet (Eliquis) 2.5 mg PO BID 01/27/25 01/27/25 History betamethasone dipropionate 0.05 % 1 appl topical BID 01/27/25 01/27/25 His tory topical cream gabapentin 100 mg capsule 200 mg PO TID 01/27/25 01/27/25 History lisinopril 20 mg tablet 20 mg PO DAILY 01/27/25 01/27/25 History naproxen sodium 220 mg tablet 220 mg PO BID PRN Pain 01/27/25 01/27/25 History (Aleve) Allergies Allergy/AdvReac Type Severity Reaction Status Date / Time apple (Apple) Allergy Unknown APPLE PEEL Verified 01/27/25 07:21 - ITCHY THROAT nut - unspecified (nut) Allergy Unknown ITCHY Verified 01/27/25 07:21 THROAT pineapple (Pineapple) Allergy Unknown ITCHY Verified 01/27/25 07:21 THROAT amoxicillin Allergy Itching Verified 01/27/25 07:21 oxycodone (From Percocet) Allergy Anxiety Verified 01/27/25 07:21 lim AdvReac Intermediate Swelling Verified 01/27/25 07:21 DUST Allergy Unknown EYES, NOSE Uncoded 01/27/25 07:21 ITCHY - ASTHMA GRASS Allergy Unknown ITCHY EYES Uncoded 01/27/25 07:21 - THROAT pet dander AdvReac Mild Itchy Eyes Uncoded 01/27/25 07:21 Physical Exam Vital signs: Vital Signs Temp 97.3 F 02/05/25 07:05 Pulse 66 02/05/25 07:05 Resp 18 02/05/25 07:05 BP 146/77 H 02/05/25 07:05 Pulse Ox 100 02/05/25 07:05 O2 Del Method Room Air 02/05/25 07:05 O2 Flow Rate 2 01/30/25 20:00 Intake & Output 02/04/25 02/05/25 02/05/25 18:59 06:59 18:59 Intake Total 360 / 1959 1600 / 1960 Output Total 250 / 250 Balance 360 / 1710 1350 / 1710 Urine Output (Average ml/kg/hr) 0.31 Intake: Intake, Oral Amount 1959 Output: Output, Urine Amount 250 / 250 Other: Number of Incontinent Voids 3 Number of Unmeasured Voids 1 Urine Bedside Commode Bedside Commode Urine Color Yellow Yellow Weight 67 kg - Constitutional Present: no acute distress - Routine HEENT Exam Head: Present: normal inspection Eye: Present: EOMI, conjunctivae pale - Routine Neck Exam Present: supple - Routine Respiratory Exam Present: CTAB. Absent: accessory muscle use - Routine Cardiovascular Exam Cardiovascular: Present: S1, S2 - Routine Extremities Exam Present: tenderness. Absent: pedal edema - Routine Skin Exam Present: intact Hem/Onc Consult Result - Labs CBC & Chem 7: 02/04/25 09:49 02/02/25 12:57 Labs: Short CBC 02/04/25 Range/Units 09:49 WBC 7.2 (4.8-10.8) X10*3/uL Hgb 7.1 L (12.0-16.0) g/dl Hct 23.9 L (37.0-47.0) % Plt Count 197 (160-400) X10*3/uL Assessment and Plan Patient Active problem list reviewed?: Yes (1) Anemia Status: Acute Assessment and plan: 1. This is a 64-year-old woman with past medical history significant for CAD, CABG in 2018, HTN, HLD, TIA, peripheral vascular disease with multiple surgeries in [place] and most recently left SFA and popliteal stent in November at [facility] in [place] who is presenting with acute anemia secondary to GI bleed. She has been on aspirin and Plavix secondary to her peripheral vascular disease. She presented with Hemoccult stools and severe anemia. Since she could not accept blood transfusion, she was given Venofer infusions 200 mg IV daily for 5 days. She received 2 doses of ABDIRASHID therapy with Procrit. She has had appropriate response to above interventions, her hemoglobin is slowly improving. There is no evidence of hemolysis, kidney and liver functions are normal. Her vitamin B12 is in the low range of normal. Administer 1 dose IM vitamin B12 and start oral supplementation. She can be discharged on oral iron with vitamin-C and vitamin B12 supplementation. She should follow up with Hematology upon discharge. Thank you for the consultation. - Time Spent With Patient Time Spent with Patient (in minutes): 25 Additional Coding: - Additional E/M codes Complex E/M visit Add On: CPT G2211
[2025-02-05 09:44] VITALS: BP 146/77; PULSE 66; O2SAT 100
[2025-02-05] MEDS: 0.9 % Sodium Chloride Flush 3 ML SYRINGE IVFLUSH (09:53)
[2025-02-05 11:06] VITALS: BP 145/65; PULSE 69; RESP 18; TEMP 36.2; O2SAT 94
[2025-02-05 11:35] LABS: Glucose, Whole Blood 231 mg/dL (60-115)
--- NOTE | 2025-02-05 13:05 | P.DS_ITS ---
DS: Providers Provider Date of Service: 02/05/25 Date of admission: 01/27/25 13:48 Date of discharge: 02/05/25 Primary care physician: Maria R Sarmiento MD Consults: 01/27/25 14:25 Consult to Gastroenterology Routine Consulting Provider: Sanjay Cordero Reason for consultation: anemia Has provider been notified: No 01/27/25 14:30 Consult to Cardiology Routine Consulting Provider: [facility] Reason for consultation: chest pain 01/27/25 15:49 Consult to Hematology / Oncology Routine Consulting Provider: [facility] Oncology/Hematology Reason for consultation: anemia, Jehovah witness; h/oCAD 02/02/25 13:18 Consult to Vascular Surgery Routine Consulting Provider: [facility] V[facility] Services Reason for consultation: evaluate medds, PVD on ac with GI bleed DS: Diagnosis Discharge Diagnosis (1) Anemia: Status: Acute DS: Summary Hospital Course Hospital Course: 63-year-old female with complicated past medical history who presents to the emergency department with chest pain. Her pain is not associated with deep inspiration. she took a dose of nitro with no improvement in her symptoms. She did develop a headache after taking nitro. She came to the emergency department for evaluation. In the emergency department initial troponin was 50 and repeat increased to 107.5. Chest pain seems to have improved at this time. Lab work was significant for anemia with H/H of 5.9/18.1 and she was noted to have Hemoccult-positive stools. She reports chronic diarrhea over the past several weeks with the associated nausea. She denies any abdominal pain at this time. She does state that she has been taking Aleve twice daily to assist in managing her chronic right lower extremity pain. Patient is a Jehovah Witness and does not accept blood products. The emergency department discussed the case with Hematology who recommended Procrit however she has not yet confirmed that that is acceptable. She was evaluated by Gastroenterology with likely plan for endoscopy. On day 2 of her admission patient developed chest discomfort with EKG changes and elevated troponins. She was also noticed to be passing dark stools. She was seen in consultation by Cardiology and noted to be in acute heart failure for which she was given IV Lasix and nitroglycerin. Over the course of the next 24 hours chest pain abated and elevation in enzymes was thought to be secondary to anemia (type 2 [place]) with a episode of failure. She was ultimately she was ultimately transitioned to p.o. Lasix and had no further chest pain. GI reviewed data and felt that since there was no further bleeding she was stable from a GI standpoint and upper endoscopy would be of low yield at this point ; she was deemed high risk. 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 Eliquis was held as well. She was given Procrit oral iron and on the day prior to discharge her hemoglobin is 7.1. She was seen in consultation by Hematology who will follow her up as an outpatient and follow her hemoglobin and determined timing of Procrit. She will continue on iron thiamine and vitamin-C as an outpatient. She has multiple vascular issues and has been stented multiple times in [place]. She continues to complain of leg pain for which he takes oral Dilaudid. She was seen in consultation by vascular surgery who felt she was too high of a risk for any intervention at this facility. Intervention at a tertiary care facility can be decided with PCP at next visit. At this point in time she is medically acceptable for discharge and will follow up with her PCP and Hematology as ordered Time Attestation Discharge Coordination Time (in mins): 35 Quality: Safe Use of Opioids Does Pt have an Active Cancer Diagnosis on the Problem List?: No Quality: Stroke Does the patient have a stroke diagnosis?: No Physical Exam Vital Signs: Vital Signs: Last Vital Signs Temp 97.1 F 02/05/25 11:06 Pulse 69 02/05/25 11:06 Resp 18 02/05/25 11:06 BP 145/65 H 02/05/25 11:06 Pulse Ox 94 02/05/25 11:06 O2 Del Method Room Air 02/05/25 11:06 O2 Flow Rate 2 01/30/25 20:00 BMI result Body Mass Index 25.4 Const: Other: Awake alert no acute distress Resp: Other: Clear to auscultation bilaterally no rales rhonchi or wheezes Cardio: Other: No S4; positive S1-S2; no S3 murmurs rubs or gallops GI: Other: Soft nontender nondistended normoactive bowel sounds Extrem: Other: No edema bilaterally DS: Data Data Completed and Pending Labs on day of discharge: Laboratory Results - last 24 hr 02/04/25 02/04/25 02/05/25 15:36 21:01 07:37 POC Glucose 160 H 265 H 118 H 02/05/25 11:28 POC Glucose 231 H Discharge Plan Discharge Anticipated Discharge Date/Time: 02/05/25 12:55 Patient Disposition: Home Health Service Discharge Diagnosis: Acute on chronic microcytic anemia Referrals: [facility] [Outside] - 1 Week Maria R Sarmiento MD [Primary Care Provider, Internal Medicine] - 1 Week Discharge Medications: New cyanocobalamin (vitamin B-12) [Vitamin B-12] 100 mcg Tablet 100 mcg PO DAILY Qty: 30 2RF furosemide 20 mg Tablet 20 mg PO DAILY Qty: 30 0RF Protocol: Hold for SBP< HOLD for SBP < : 90 ferrous sulfate 324 mg (65 mg iron) Tablet,Delayed Release (Dr/Ec) 324 mg PO BIDWM Qty: 60 2RF hydromorphone [Dilaudid] 2 mg tablet 2 mg PO TID 14 Days Qty: 42 0RF Rx Instructions: Partial Fill upon patient request. ascorbic acid (vitamin C) 500 mg tablet 500 mg PO BID Qty: 60 2RF Continued duloxetine 60 mg capsule,delayed release(DR/EC) 60 mg PO DAILY Rx Instructions: w/ 30 mg ezetimibe 10 mg tablet 10 mg PO BEDTIME metformin 1,000 mg tablet 1,000 mg PO BIDWM ranolazine 1,000 mg tablet extended release 12 hr 1,000 mg PO BID metoprolol succinate 100 mg tablet extended release 24 hr 100 mg PO BEDTIME insulin aspart U-100 [Novolog FlexPen U-100 Insulin] 100 unit/mL (3 mL) Insulin Pen See Protocol SUBCUT USEASDIRECTD Protocol: Insulin Correction Scale Less than or equal to 110 ---- Give (units): 0 111 to 150 Give (units): 0 151 to 200 Give (units): 2 201 to 250 Give (units): 4 251 to 300 Give (units): 6 301 to 350 Give (units): 8 Greater than 350 Give (units): 10 Call MD if Blood Glucose > : 350 rosuvastatin 40 mg tablet 40 mg PO DAILY lisinopril 20 mg tablet 20 mg PO DAILY betamethasone dipropionate 0.05 % cream 1 appl topical BID gabapentin 100 mg capsule 200 mg PO TID acetaminophen 325 mg Tablet 650 mg PO Q6H PRN (Reason: Fever Or Pain) pantoprazole 40 mg tablet,delayed release (DR/EC) 40 mg PO DAILY@0630 Discontinued clopidogrel 75 mg Tablet 75 mg PO DAILY Qty: 30 0RF Eliquis 2.5 mg tablet 2.5 mg PO BID naproxen sodium [Aleve] 220 mg Tablet 220 mg PO BID PRN (Reason: Pain) Discharge Orders: Discharge Order (Routine); Ordered 02/05/25 Ordered By: Rex Steve Diet: Advance to usual diet Activity on Discharge: As tolerated Stand Alone Forms: Patient Portal Discharge page Print Language: Zambian Care Plan Goals: No longer take your Eliquis Plavix or naproxen. Health Concerns: Iron vitamin-C and thiamine has been added to your regimen. Take these as prescribed. Plan of Treatment: Follow up with PCP next available. Dr. Rivera's office will call to schedule a follow up appointment to monitor iron studies/CBC and assess further need for Procrit Assessment: See discharge summary
--- NOTE | 2025-02-05 14:09 | MHC.CM.PN ---
IMM 02/05/25 DELIVERED TO BEDSIDE, PT MEDICALLY CLEARED FOR DC HOME W/RESUMP OF [facility] AND NEW OUTPT FOLLOW-UP HEM/ONC D/T [facility].PT'S DTR [facility] FOR TRANSPORT.
--- NOTE | 2025-02-07 07:45 | W.MHC.F2F ---
Service Date Service Date: 02/07/25 Encounter Date of encounter: 02/05/25 Encounter: Hospitalization Reasons for Services Signs and symptoms assessed: Assist with medication and treatment management and home physical therapy for gait training Reason for jail: medication management and teach disease management Reason for physical therapy: home safety and mobility, therapeutic exercises and gait/transfer training Homebound: Leaving the home is medically contraindicated at this time without the asist of a device and/or another person due th the listed conditions above and below. Reason homebound: unsteady gait / fall risk and unable to drive Certification: Based on the above findings, I certify that this patient is confined to the home and needs intermittent jail care, physical therapy and/or speech therapy, or continues to need occupational therapy. The patient is under my care, and I have initiated the establishment of the plan of care. The patient will be followed by a physician who will periodically review the plan of care. Time Spent With Patient Time: Total time managing care of this patient today ____ minutes.
== END 2025-02-05 15:14 | disposition home health service (06) | DRG 377 ==
LOC: HO.ED 08:01 → HO.EDOVER 14:00 → HO.IMC 01-28 03:48
PROVIDERS: Internal Medicine; Nurse Practitioner Acute Care; Admitting Provider Physician Assistant Medical; Emergency Provider Emergency Medicine; PCP Internal Medicine; Visit Provider Hospitalist
DX: K29.71 Gastritis, unspecified, with bleeding (principal); I21.A1 Myocardial infarction type 2; D62 Acute posthemorrhagic anemia; I25.10 Atherosclerotic heart disease of native coronary artery without angina pectoris; E11.51 Type 2 diabetes mellitus with diabetic peripheral angiopathy without gangrene; I11.0 Hypertensive heart disease with heart failure; I50.9 Heart failure, unspecified; E11.40 Type 2 diabetes mellitus with diabetic neuropathy, unspecified; Z95.5 Presence of coronary angioplasty implant and graft; Z20.822 Contact with and (suspected) exposure to COVID-19; R74.01 Elevation of levels of liver transaminase levels; I70.202 Unspecified atherosclerosis of native arteries of extremities, left leg; Z87.891 Personal history of nicotine dependence; Z79.4 Long term (current) use of insulin; Z79.02 Long term (current) use of antithrombotics/antiplatelets; Z79.84 Long term (current) use of oral hypoglycemic drugs; Z79.899 Other long term (current) drug therapy
CPT/HCPCS: 36415; 71045; 73630; 80048; 80053; 80076; 81001; 82272; 82607; 82728; 82746; 82947; 83540; 83615; 83735; 84484; 84550; 85014; 85018; 85025; 85027; 85045; 85610; 87086; 87637; 93005; 93970; 97116; 97162; 97530; 99285; J1171; J1756; J1938; J2405; J2470; J3420; J3430; J7120; Q5106

== ENCOUNTER → 2025-01-27 07:15 | Outpatient (BNV) | payer MEDICARE, MEDICAID, SELFPAY | PROVIDERS: Admitting Provider Physician Assistant Medical; Emergency Provider Emergency Medicine; PCP Internal Medicine; Visit Provider Internal Medicine Cardiovascular Disease | DX: I25.2 Old myocardial infarction (principal) | CPT/HCPCS: 93010 ==

== ENCOUNTER 2025-01-27 13:48 | Outpatient (BNV) | payer MEDICARE, MEDICAID, SELFPAY | END 2025-01-30 18:49 | PROVIDERS: Admitting Provider Physician Assistant Medical; Emergency Provider Emergency Medicine; PCP Internal Medicine; Visit Provider Specialist | DX: M79.671 Pain in right foot (principal) | CPT/HCPCS: 73630 ==

== ENCOUNTER 2025-01-27 13:48 | Outpatient (BNV) | payer MEDICARE, MEDICAID, SELFPAY | END 2025-01-28 14:58 | PROVIDERS: Admitting Provider Physician Assistant Medical; Emergency Provider Emergency Medicine; PCP Internal Medicine; Visit Provider Radiology Diagnostic Radiology | DX: J90 Pleural effusion, not elsewhere classified (principal) | CPT/HCPCS: 71045 ==

== ENCOUNTER 2025-01-27 13:48 | Outpatient (BNV) | payer MEDICARE, MEDICAID, SELFPAY | END 2025-02-03 06:27 | PROVIDERS: Admitting Provider Physician Assistant Medical; Emergency Provider Emergency Medicine; PCP Internal Medicine; Visit Provider Internal Medicine Cardiovascular Disease | DX: I25.2 Old myocardial infarction (principal) | CPT/HCPCS: 93010 ==

== ENCOUNTER → 2025-01-27 13:48 | Outpatient (BNV) | payer MEDICARE, MEDICAID, SELFPAY | PROVIDERS: Admitting Provider Physician Assistant Medical; Emergency Provider Emergency Medicine; PCP Internal Medicine; Visit Provider Physician Assistant Medical | DX: D64.9 Anemia, unspecified (principal) | CPT/HCPCS: 99223; 99232; 99233; 99239; 99499; G0180 ==

== ENCOUNTER → 2025-01-27 13:48 | Outpatient (BNV) | payer MEDICARE, MEDICAID, SELFPAY | PROVIDERS: Admitting Provider Physician Assistant Medical; Emergency Provider Emergency Medicine; PCP Internal Medicine; Visit Provider Internal Medicine | DX: D50.0 Iron deficiency anemia secondary to blood loss (chronic) (principal) | CPT/HCPCS: 99222 ==

== ENCOUNTER → 2025-01-27 13:48 | Outpatient (BNV) | payer MEDICARE, MEDICAID, SELFPAY | PROVIDERS: Admitting Provider Physician Assistant Medical; Emergency Provider Emergency Medicine; PCP Internal Medicine; Visit Provider Surgery Vascular Surgery | DX: I73.9 Peripheral vascular disease, unspecified (principal) | CPT/HCPCS: 99222 ==

== ENCOUNTER → 2025-01-27 13:48 | Outpatient (BNV) | payer MEDICARE, MEDICAID, SELFPAY | PROVIDERS: Admitting Provider Physician Assistant Medical; Emergency Provider Emergency Medicine; PCP Internal Medicine; Visit Provider Internal Medicine Cardiovascular Disease | DX: I11.0 Hypertensive heart disease with heart failure (principal); I50.9 Heart failure, unspecified; I25.10 Atherosclerotic heart disease of native coronary artery without angina pectoris | CPT/HCPCS: 99223 ==

== ENCOUNTER 2025-01-28 08:26 | Outpatient (REF) | payer MEDICARE, MEDICAID, SELFPAY ==
--- OUTSIDE RECORDS SUMMARY | 2025-01-29 08:31 | XMS_ITS | Encounter Summary ---
Author Organization [facility] Address [address] [place] [address] Phone Care Team Providers Care Drug Safety Coordinator Name Role Phone Kelsey Tamayo MD Primary Care Provider [phone] Maria R Sarmiento MD Primary Care Provider Encounter Details Date Type Department Care Team (Late st Contact Info) Description 11/17/2024 Procedure Pass [facility], Ct Scan - [address] [address] Social History Tobacco Use Types Packs/Day Years [...] 6:00 PM EDT Kizzy Fang RN * [place] Suicide Severity Rating Scale (Screener/Recent Self-Report) Question [...] Care Team (Late st Contact Info) Description 02/02/2025 Home Care Visit [facility] [address] [place] [address] Lizandro Nix, [facility] [address] [place] [address] 02/08/2025 Home Care Visit [facility] [address] [place] [address] Lizandro Nix, [facility] [address] [place] [address] 02/18/2025 Appointment [facility] [address] [place] [address] Lizandro Nix, [facility] [address] [place] [address] documented as of this encounter Visit Diagnoses Not on filedocumented in this encounter Additional Health Concerns Infection Onset Date Last Indicated Resolved Time 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 It is not the complete legal health record.[facility]
--- OUTSIDE RECORDS SUMMARY | 2025-01-29 08:32 | XMS_ITS | Encounter Summary ---
Author Organization [employer] Address [address] [place] [address] Care Team Providers Care Planning Manager Name Role Phone Unavailable Primary Care [...]
--- OUTSIDE RECORDS SUMMARY | 2025-01-29 08:32 | XMS_ITS | Patient Health Record ---
Author Organization [facility] Address [address] [place] [address] Care Team Providers Care Outside Sales Representative Insurance Name Role Phone Joanne Blankenship M.D Primary Care Provider Jesus Coleman Unavailable [phone] Allergies Allergen (clinical drug ingredient) Drug/Non Drug [...] day; Duration: 4 day(s) 05/08/2019 Unknown Nystop 143345 UNIT/GM 1 application Externally Unknown Clarithromycin 500 [...] Status W/U Status Risk Notes Problem Callosity (570358884) Corns and callosities (L84) Active confirmed Plan Of Treatment No Information Insurance Providers Payer Name Payer Address Payer Phone Subscriber Number Group Number Insured Name Patient Relationship to Insured Coverage Start Date Coverage End Date [employer] [address] [address] [place] [phone] [id number] Vee Parisi Self - patient is the insured Medical (General) History Medical History History ICD Code Gastroesphageal Reflux Anxiety Disorder Other sleep issue Heart Disease Depression Coronary Artery Disease High Blood pressure Peripheral Arterial Disease High Cholesterol Heart Problems Back pain Heart Attack (NH) Allergies Surgical History Surgery Date(Month/Year) Cardiac Catheterization 07/2016 Peripheral Artery intervention 01/2018 Cardiac Catheterization 01/2016 Cardiac Catheterization 12/2015 Cardiac Catheterization 06/2015 Vascular surgery 03/2015 Stent Placement Breast Surgery Carpal Tunnel Surgery Heart Surgery
--- OUTSIDE RECORDS SUMMARY | 2025-01-29 08:32 | XMS_ITS | Patient Health Record ---
Author Organization [facility] Address [address] [facility] [place] [address] Care Team Providers Care Cognos Name Role Phone Torsten Maria R Primary Care Provider Unavailab Willian Warren Unavailable [phone] Allergies Allergen (clinical drug ingredient) Drug/Non Drug [...] Problem Acquired hammer toe of right foot (38230459539066 05) Other hammer toe(s) (acquired), right foot (M20.41) Active confirmed Problem Type 2 diabetes mellitus with peripheral angiopathy (103426018) Type 2 diabetes mellitus with diabetic peripheral angiopathy without gangrene (E11.51) Active confirmed Problem Acquired hammer toe of left foot ([id number] 03) Other hammer toe(s) (acquired), left foot (M20.42) Active confirmed Plan Of Treatment Pending Test Test Name Order Date [id number] NAIL, 6 OR MORE 11/26/2022 [id number] NAIL, 6 OR MORE 02/25/2023 [id number] Plate 02/25/2023 [id number] Plate 11/26/2022 [id number] SKIN LESIONS, 2 TO 4 11/27/19 [id number] SKIN LESIONS, 2 TO 4 02/26/20 Insurance Providers Payer Name Payer Address Payer Phone Subscriber Number Group Number Insured Name Patient Relationship to Insured Coverage Start Date Coverage End Date [facility] 65 Medicare Preferred [address] [place] [address] [phone] [id number] Vee Parisi Self - patient is [...] Hand Surgery tooth Hospitalization History Reason Date(Month/Year) [facility] [place]- fainted 10/2022
== END 2025-01-28 08:27 | disposition home or self-care (01) ==
LOC: HO.HOSX 08:26
PROVIDERS: Visit Provider Physician Assistant
DX: Z13.89 Encounter for screening for other disorder (principal)

== ENCOUNTER 2025-02-09 08:46 | Outpatient (REF) | payer MEDICARE, MEDICAID, SELFPAY ==
--- NOTE | ~2025-02-09 | XR_ITS ---
EXAMINATION: XR SACRUM AND COCCYX CLINICAL INFORMATION: M53.3 - Sacrococcygeal disorders, not elsewhere classified COMPARISON: None available. TECHNIQUE: 2 views of the sacrum and 2 views of the coccyx were obtained. FINDINGS: There are no fractures. No bone, joint or soft tissue abnormality is demonstrated. Moderate vascular calcifications are present. Femoral artery stents are present bilaterally. XR/XR sacrum coccyx min 2V IMPRESSION: Unremarkable sacrum and coccyx. Electronically signed by: Jesus Markham MD 02/09/2025 10:57 AM EDT
--- NOTE | ~2025-02-09 | XR_ITS ---
Examination: 5 view lumbar spine x-ray TECHNIQUE: AP, lateral, lateral spot, bilateral oblique views INDICATION: Low back pain. Prior: None FINDINGS: Moderate to severe vascular calcifications are evident. Minimal degenerative changes evident in the SI joints. There are 5 nonrib-bearing lumbar segments. L4-5 demonstrates mild grade 1 anterolisthesis. There is mild disc space narrowing involving L1-2 and L4-5. XR/XR lumbar spine 4V min IMPRESSION: Mild degenerative changes at L1-2 and L4-5 with grade 1 anterolisthesis at L4-5. Electronically signed by: Jesus Markham MD 02/09/2025 11:00 AM EDT
== END 2025-02-09 08:47 | disposition home or self-care (01) ==
LOC: HO.XRAY 08:46
PROVIDERS: PCP Internal Medicine; Visit Provider Nurse Practitioner Family
DX: M53.3 Sacrococcygeal disorders, not elsewhere classified (principal); L97.519 Non-pressure chronic ulcer of other part of right foot with unspecified severity; M79.604 Pain in right leg; G89.29 Other chronic pain; M54.50 Low back pain, unspecified; R29.6 Repeated falls; Z79.899 Other long term (current) drug therapy
CPT/HCPCS: 72110; 72220; 99202

== ENCOUNTER 2025-02-09 08:46 | Outpatient (AMB) | payer MEDICARE, MEDICAID, SELFPAY ==
--- NOTE | 2025-02-09 08:49 | A.OFFVIS_ITS ---
Vital Signs 3 02/09/25 08:52 Height 5 ft 1 in Weight 130 lb BMI 24.6 BP 147/64 H Blood Pressure Location Lt brachial Position Sitting Pulse 69 Pulse Source Pulse Oximeter Pulse Oximetry (%) 97 Oxygen Delivery Method Room Air Intake Visit Reasons: Unclear etiology of right lower extremity pain Intake Note: Pain today 03/26 Leather Tooler Required: No Accompanied by: Daughter Allergies apple (Apple) Allergy (Unknown, Verified 02/09/25 08:54) APPLE PEEL - ITCHY THROAT nut - unspecified (nut) Allergy (Unknown, Verified 02/09/25 08:54) ITCHY THROAT pineapple (Pineapple) Allergy (Unknown, Verified 02/09/25 08:54) ITCHY THROAT amoxicillin Allergy (Verified 02/09/25 08:54) Itching oxycodone (From Percocet) Allergy (Verified 02/09/25 08:54) Anxiety lim Adverse Reaction (Intermediate, Verified 02/09/25 08:54) Swelling DUST Allergy (Unknown, Uncoded 01/27/25 07:21) EYES, NOSE ITCHY - ASTHMA GRASS Allergy (Unknown, Uncoded 01/27/25 07:21) ITCHY EYES - THROAT pet dander Adverse Reaction (Mild, Uncoded 01/27/25 07:21) Itchy Eyes HPI Comments Details: The patient is a 64-year-old female presenting with right lower extremity pain. She has a history of significant peripheral arterial and vascular disease and has undergone several interventions on both legs in [place] every three to four months, although the specifics of these interventions are unclear. She has been under care of [facility] Vascular care by Dr. Chan who referred her to our office for right lower extremity pain evaluation. Recently, she experienced a gastrointestinal bleed, resulting in lower hemoglobin levels and necessitating iron transfusions. Patient reports she is Jehovah Witness and avoids blood transfusions. The patient has a complex medical history including orthostatic hypotension, left vertebral artery stenosis, chronic dizziness, cerebrovascular accident, neuropathy, coronary artery disease, transient ischemic attack, hypertension, and diabetes mellitus. She was recently discharged from the hospital and has a recent history of ischemic left lower extremity and underwent an endovascular intervention on 11/21/24 at another facility. She is currently managing her pain with duloxetine, gabapentin, and Dilaudid, and has been receiving Orthopedic care for her left lower extremity for closed left ankle fracture. A venous duplex of both legs was recently performed, which was negative for deep vein thrombosis. She is currently not on blood thinners due to recent GI bleed and low HH counts. The patient reports severe right foot pain and nonhealing ulcer on right lower leg and new wound ulcer to right 5th toe with skin discoloration and open areas that causes difficulty with weight-bearing, and she uses a walker for balance. She has experienced falls, including one in the summer resulting in a left ankle fracture, and another recent fall 2 days ago causing coccyx and low back pain. Her right leg exhibits redness, swelling, and ulceration, with a risk of gangrene, and she is scheduled for an appointment with the wound clinic and is planning to follow up with Dr. Chan. - Onset: Pain in the right lower extremity began several months ago. - Quality: Described as throbbing, pounding, shooting, sharp, cramping, tingling, hurting, aching, exhausting, sickening, terrifying, cool, freezing, burning, pinching, and squeezing sensations. - Location: Primarily in the right leg and right foot, low back pain radiating to the buttock and coccyx pain. - Exacerbating Factors: Weight-bearing and walking increase pain. - Relieving Factors: Use of a walker for balance. - Interference: Pain interferes with weight-bearing and balance, ADLs, and sleep. - Affect: Pain impacts daily activities and balance, causing falls. - Analgesia: Currently using duloxetine, gabapentin, and Dilaudid for pain management. - Adverse Effects: Potential for orthostatic hypotension with medication use. - Activities of Daily Living: Pain limits weight-bearing and requires use of a walker. - Aberrant Drug Related Behaviors: No aberrant behaviors reported. FOR[facility]LY [facility], [facility] Medical History Dizziness Orthostatic hypotension Stenosis of left vertebral artery CVA (cerebral vascular accident) Peripheral vascular disease Neuropathy Coronary artery disease Brain TIA Hypertension Diabetes Surgical History History of angioplasty of peripheral vessel Status post aorto-coronary artery bypass graft Family History Father Coronary artery disease involving coronary bypass graft Mother No problems noted. Social History Household Members: Family Household Members Other:: lives with brother Housing: House Do you presently have visiting nurse or other home services: No Alcohol intake: never Patient Tobacco Use Status: Former Tobacco user Years Smoked: Remote smoking, quit in her 30s Second Hand Smoke Exposure: No service: No Current occupational status: unemployed Review of Systems Const Details: - Cardiovascular: Reports history of non-ST elevation myocardial infarction. Denies current chest pain. - Neurological: Reports chronic dizziness and falls. Denies numbness or tingling during examination. - Musculoskeletal: Reports severe right foot pain, moderate low back and coccyx pain. Denies hip pain on the right. All systems reviewed & are unremarkable except as noted in HPI and below Physical Exam Vital Signs: Last Vital Signs Pulse 69 02/09/25 08:52 BP 147/64 H 02/09/25 08:52 Pulse Ox 97 02/09/25 08:52 Oxygen Delivery Method Room Air 02/09/25 08:52 BMI result Body Mass Index 24.6 General: Appears afebrile. Moderate distress due to pain. Alert and oriented. Mood and affect appropriate. Follows and participates in conversation appropriately. Respiratory effort is unlabored. No cough. Able to transition from sit to stand with assistance of family. Ambulates with slow, antalgic gait. Uses walker. General: Yes no CVA tenderness Back/Spine/Pelvis Back: no CVA tenderness Cervical Spine: cervical ROM normal, cervical muscular tenderness and No Cervical spine tenderness Thoracic/Lumbar Spine: thoracic and lumbar spine normal to inspection, No Thoracic/lumbar spine scar(s), Lasegue's sign negative, straight leg raise negative bilaterally, pain with thoraco-lumbar ROM, paraspinal muscle tenderness, thoraco-lumbar ROM limited, No thoracic spinal tenderness and lumbar spinal tenderness (L5-S1) Pelvis: buttock tenderness on the right and no buttock swelling Sacroiliac joints: bilaterally tender to palpation Sacrum: swelling midline and tenderness on the right and midline Coccyx: Coccyx tenderness present Extrem Other: General: Yes capillary refill normal (normal left, diminished on the RLE), Yes no calf tenderness, No clubbing, Yes cyanosis (mild right foot, right 5th toe), Yes Limp noted, Yes pedal edema (right) and Yes other (right 5th toe wound ulcer with skin discoloration) Right lower extremity: foot (decreased ROM due to pain) Details: abnormal to inspection Details: cyanosis and erythematous, tenderness (entire foot and toes, especially 5th toe with ulceration) and edema (pedal nonpitting) Results Reviewed Results Reviewed: US LOWER EXTREMITY VEINS BILATERAL 01/27/25 CLINICAL INFORMATION: Reason for Exam-history of DVT, pain/weakness in B/L legs COMPARISON: None available. TECHNIQUE: Color-flow triplex imaging with spectral analysis and compression Doppler were performed on the bilateral lower extremities. FINDINGS: Partially limited examination due to patient unable to stay still and constantly moving legs. Respiratory variation, normal compression and augmented flow are noted throughout the bilateral lower extremities. The visualized common femoral vein, femoral vein, profunda femoral vein, popliteal vein and midcalf peroneal and posterior tibial venous segments show no evidence of deep venous thrombosis bilaterally. IMPRESSION: No evidence of deep venous thrombosis involving the right or left lower extremities. Assessment & Plan Assessment & Plan (1) Low back pain: Code(s): M54.50 - Low back pain, unspecified Category: Medical (2) Coccydynia: Code(s): M53.3 - Sacrococcygeal disorders, not elsewhere classified Category: Medical (3) Recurrent falls: Code(s): R29.6 - Repeated falls Category: Medical (4) Chronic pain of right lower extremity: Code(s): M79.604 - Pain in right leg; G89.29 - Other chronic pain Category: Medical (5) Ulcer of toe of right foot: Code(s): L97.519 - Non-pressure chronic ulcer of other part of right foot with unspecified severity Category: Medical Plan 1. Peripheral Vascular Disease The patient has a history of peripheral vascular disease with multiple interventions performed in [place] every three to four months. A venous duplex was recently performed, which was negative for deep vein thrombosis. The plan includes continued monitoring and follow-up with her Vascular specialist, Dr. Chan, to address any vascular-related issues. The patient has ulceration on her right leg with a risk of gangrene, as indicated by the blackish discoloration observed. She is scheduled for an appointment with the Wound clinic for further management. It is crucial to inform Dr. Rocio about the new ulceration and ensure appropriate wound care is provided. 2. Severe Right Foot Pain The patient reports severe right foot pain, which interferes with weight-bearing and balance. She uses a walker for support and has been receiving physical therapy, although it has not significantly alleviated her pain. The plan includes further evaluation to determine if the pain is related to vascular issues or other causes such as back or hip problems. 3. Low Back pain, recurrent falls. Lumbar spine and sacrum/coccyx imaging to assess degree of degenerative changes, any subluxation, listhesis, compression fractures or pars defects. Scripts provided for lidocaine patch and increased dose for gabapentin. Side effects and precautions were discussed with patient and family. All questions and concerns have been answered and patient agreed with the treatment plan. Follow up for xray results and sooner as needed. Patient was informed and verbally consented to the use of an ambient scribe for clinic note documentation during this visit. Orders: Orders 2 XR sacrum coccyx min 2V Today M53.3 - Sacrococcygeal disorders, not elsewhere classified, R29.6 - Repeated falls XR lumbar spine 4V min Today M53.3 - Sacrococcygeal disorders, not elsewhere classified, M54.50 - Low back pain, unspecified Medications: New 2 lidocaine 5% 1 patch topically; 30 ea 0RF pain M53.3 - Sacrococcygeal disorders, not elsewhere classified, M54.50 - Low back pain, unspecified Changed 2 From gabapentin 200 mg PO TID G89.29 - Other chronic pain, M53.3 - Sacrococcygeal disorders, not elsewhere classified, M54.50 - Low back pain, unspecified, M79.604 - Pain in right leg To gabapentin 300 mg (3 x 100 mg) PO TID 270 caps 0RF pain 30 days G89.29 - Other chronic pain, M53.3 - Sacrococcygeal disorders, not elsewhere classified, M54.50 - Low back pain, unspecified, M79.604 - Pain in right leg Coding Level of Care Code New Pt Level 4 (06307) Diagnoses Low back pain M54.50 Coccydynia M53.3 Recurrent falls R29.6 Chronic pain of right lower extremity M79.604; G89.29 Ulcer of toe of right foot L97.519
[2025-02-09 08:52] VITALS: BP 147/64; PULSE 69; O2SAT 97; BMI 24.6
--- OUTSIDE RECORDS SUMMARY | 2025-02-09 09:01 | XMS_ITS | Encounter Summary ---
Author Organization [facility] Address [address] [place] [phone] Phone Care Team Providers Care Wholesale Loan Processor Name Role Phone Kelsey Tamayo MD Primary Care Provider [phone] Maria R Sarmiento MD Primary Care Provider Encounter Details Date Type Department Care Team (Late st Contact Info) Description 11/17/2024 Procedure Pass [facility], Ct Scan - [address] [id number] Social History Tobacco Use Types Packs/Day Years [...] 6:00 PM EDT Kizzy Fang RN * [place] Suicide Severity Rating Scale (Screener/Recent Self-Report) Question Answer Date of Assessment Author 1. Wish to be (Past 1 Month) No 025 6:00 PM EDT Kizzy Fang RN 2. Non-Specific Active Suici kati Thoughts (Past 1 Month) No 11/17/2024 6:00 PM EDT Kizzy Fang , NESHA 6. 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 It is not the complete legal health record.[facility]
--- OUTSIDE RECORDS SUMMARY | 2025-02-09 09:02 | XMS_ITS | Encounter Summary ---
Author Organization [facility] Address [address] [place] [address] [place] [address] Phone Care Team Providers Care Round Kiln Drawer Name Role Phone Kelsey Tamayo MD Primary Care Provider [phone] Maria R Sarmiento MD Primary Care Provider Encounter Details Date Type Department Care Team (Late st Contact Info) Description 10/31/2024 Procedure Pass [facility], Ct Scan - [address] [address] Social History Tobacco Use Types Packs/Day Years [...] before we got money to buy more. Unable to assess 025 Within the past 6 months the food we bought just didn't last and we didn't have enough money to get more. Unable to assess 11/02/2024 Residential Stability Answer Date Recor ded What is your housing situation today? I have tamir sing 11/02/2024 How many times have you moved in the past 12 mon ths? Unable to assess 11/02/2024 Paying for Meds Answer Date Recorded Do you have trouble paying for medicines? Unable to assess 11/02/2024 Paying Utility Bills Answer Date Record ed Do you have trouble paying y our heating or electricity bill? Unable to assess 11/02/2024 Transportation Answer Date Recorded Has the lack of transportati on kept you from medical appointments or from getting medications? No 11/02/2024 Digital Access Answer Date Recorded No 11/02/2024 Yes 11/02/2024 Do you have reliable internet access at home? Ye s 11/02/2024 Do you have a device (e.g., phone, tablet, computer) with a working camera? Yes 11/02/2024 Intimate Partner Violence Answer Date R ecorded Are you denied basic needs s uch as food, clothing, or medical care? No 10/31/2024 In the past 12 months have y ou been in a relationship with a person who hurts, threatens, or tries to control you? No 10/31/2024 Are you denied basic needs s uch as food, clothing, or medical care? No 10/31/2024 In the past 12 months have y ou been in a relationship with a person who hurts, threatens, or tries to control you? No 10/31/2024 Comments Unknown Sex and Gender Information Value Date Recorded Sex Assigned at Female 11/17/2024 3:05 AM EDT Legal Sex Female 10:34 PM EDT Gender Identity Female 11/17/2024 3:05 AM EDT Sexual Orientation Don't know 11/17/2024 3: 05 AM EDT documented as of this encounter Functional Status * Calculated C-SSRS Risk Score (Lifetime/Recent) Answer Date of Assessment Author No Risk Indicated 10/31/2024 7:00 PM EDT Kirstin Pearson RN * [place] Suicide Severity Rating Scale (Screener/Recent Self-Report) Question Answer Date of Assessment Author 1. Wish to be (Past 1 Month) No 10/31/2024 7:00 PM EDT Kirstin Madrigal RN 2. Non-Specific Active Suici kati Thoughts (Past 1 Month) No 10/31/2024 7:00 PM EDT Jamie Madrigal RN 6. 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 It is not the complete legal health record.[facility]
--- OUTSIDE RECORDS SUMMARY | 2025-02-09 09:02 | XMS_ITS | Encounter Summary ---
Author Organization [facility] Address [address] [place] [address] [place] [address] Phone Care Team Providers Care Director Of Curriculum And Instruction Name Role Phone Kelsey Tamayo MD Primary Care Provider [phone] Maria R Sarmiento MD Primary Care Provider Encounter Details Date Type Department Care Team (Late st Contact Info) Description 10/31/2024 Procedure Pass [facility], Ct Scan - [address] [address] Social History Tobacco Use Types Packs/Day Years [...] 7:00 PM EDT Kirstin Pearson RN * [place] Suicide Severity Rating Scale (Screener/Recent Self-Report) Question [...] documented as of this encounter Care Teams Director Of Curriculum And Instruction Relationship Specialty Start Date End Date Kelsey Tamayo MD [address] [place] [address] PCP - General Internal Medicine 10/31/24 11/22/24 Maria R Sarmiento MD [address] [place] [address] [place] [address] PCP - General Internal Medicine 11/23/24 documented as of this encounter Additional Source Comments The information contained in this document represents components of the legal health record. It is not the complete legal health record.[facility]
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
--- OUTSIDE RECORDS SUMMARY | 2025-02-09 09:02 | XMS_ITS | Encounter Summary ---
Author Organization [facility] Address [address] [place] [address] Phone Care Team Providers Care Radial Drill Press Operator For Plastic Name Role Phone Kelsey Tamayo MD Primary Care Provider [phone] Maria R Sarmiento MD Primary Care Provider Encounter Details Date Type Department Care Team (Late st Contact Info) Description 11/05/2024 Procedure Pass Non-Invasive Cardiology [address] [place] [address] Social History Tobacco Use Types Packs/Day Years [...] housing situation today? I have tamir lozano 11/02/2024 How many times have you moved [...] documented as of this encounter Care Teams Radial Drill Press Operator For Plastic Relationship Specialty Start Date End Date Kelsey Tamayo MD [address] [place] [address] PCP - General Internal Medicine 10/31/24 11/22/24 Maria R Sarmiento MD [address] [place] [address] Dr StahlkeISAC [address] PCP - General Internal Medicine 11/23/24 documented as of this encounter Additional Source Comments The information contained in this document represents components of the legal health record. It is not the complete legal health record.[facility]
--- OUTSIDE RECORDS SUMMARY | 2025-02-09 09:02 | XMS_ITS | Encounter Summary ---
Author Organization [facility] Address [address] [place] [address] Phone Care Team Providers Care Vice President Business & Corporate Development Name Role Phone Kelsey Tamayo MD Primary Care Provider [phone] Maria R Sarmiento MD Primary Care Provider Encounter Details Date Type Department Care Team (Late st Contact Info) Description 11/01/2024 Procedure Pass [facility], [address] [address] Social History Tobacco Use Types Packs/Day Years [...] documented as of this encounter Care Teams Vice President Business & Corporate Development Relationship Specialty Start Date End Date Kelsey Tamayo MD [address] [place] [address] PCP - General Internal Medicine 10/31/24 11/22/24 Maria R Sarmiento MD [address] [place] [address] [place] [address] PCP - General Internal Medicine 11/23/24 documented as of this encounter Additional Source Comments The information contained in this document represents components of the legal health record. It is not the complete legal health record.[facility]
--- OUTSIDE RECORDS SUMMARY | 2025-02-09 09:02 | XMS_ITS | Encounter Summary ---
Author Organization [facility] Address [address] [place] [address] Phone Care Team Providers Care Front End Driver Name Role Phone Kelsey Tamayo MD Primary Care Provider [phone] Maria R Sarmiento MD Primary Care Provider Encounter Details Date Type Department Care Team (Late st Contact Info) Description 11/03/2024 Procedure Pass [facility] [address] [place] [address] Social History Tobacco Use Types Packs/Day Years [...] documented as of this encounter Care Teams Front End Driver Relationship Specialty Start Date End Date Kelsey Tamayo MD [address] [place] [address] PCP - General Internal Medicine 10/31/24 11/22/24 Maria R Sarmiento MD [address] [place] [address] [place] [address] PCP - General Internal Medicine 11/23/24 documented as of this encounter Additional Source Comments The information contained in this document represents components of the legal health record. It is not the complete legal health record.[facility]
--- OUTSIDE RECORDS SUMMARY | 2025-02-09 09:03 | XMS_ITS | Patient Health Record ---
Author Organization [facility] Address [address] [facility] [address] [place] [address] Care Team Providers Care Temporary Office Assistant Name Role Phone Joanne Blankenship M.D Primary Care Provider Jesus Coleman Unavailable [phone] Allergies Allergen (clinical drug ingredient) Drug/Non Drug [...] day; Duration: 4 day(s) 05/08/2019 Unknown Nystop [id number] UNIT/GM 1 application Externally Unknown Clarithromycin 500 [...] Status W/U Status Risk Notes Problem Callosity ([id number]) Corns and callosities (L84) Active confirmed Plan Of Treatment No Information Insurance Providers Payer Name Payer Address Payer Phone Subscriber Number Group Number Insured Name Patient Relationship to Insured Coverage Start Date Coverage End Date [employer] [address] [address] [place] [phone] [id number] Vee Parisi Self - patient is the insured Medical (General) History Medical History History ICD Code Gastroesphageal Reflux Anxiety Disorder Other sleep issue Heart Disease Depression Coronary Artery Disease High Blood pressure Peripheral Arterial Disease High Cholesterol Heart Problems Back pain Heart Attack (RI) Allergies Surgical History Surgery Date(Month/Year) Cardiac Catheterization 07/2016 Peripheral Artery intervention 01/2018 Cardiac Catheterization 01/2016 Cardiac Catheterization 12/2015 Cardiac Catheterization 06/2015 Vascular surgery 03/2015 Stent Placement Breast Surgery Carpal Tunnel Surgery Heart Surgery
--- OUTSIDE RECORDS SUMMARY | 2025-02-09 09:03 | XMS_ITS | Clinical Summary ---
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 Active ezetimibe (ZETIA) 10 mg tablet Take 10 mg by mouth daily. Active metoprolol succinate (TOPROL-XL) 100 MG 24 hr tablet Take 100 mg by mouth daily. Active ranolazine (RANEXA) 1,000 mg SR tablet Take 1,000 mg by mouth 2 (two) times a day. Active OZEMPIC 2 mg/dose (8 mg/3 mL) subcutaneous injection pen Inject 2 mg under the skin every 7 days. ON HOLD Active docusate sodium (COLACE) 100 MG capsule Take 100 mg by mouth 2 (two) times a day. Active bisacodyl (DULCOLAX) 5 mg EC tablet Take 5 mg by mouth daily as needed for constipation. Active fluticasone propionate (FLONASE) 50 mcg/actuation nasal spray 1 spray by Nasal route daily. Active lisinopril (PRINIVIL,ZESTRI L) 30 MG tablet Take 1 tablet (30 mg total) by mouth daily. Active apixaban (ELIQUIS) 2.5 mg Take 1 tablet (2.5 mg total) by mouth 2 (two) times a day. 180 tablet 1 Active cetirizine (ZYRTEC) 10 MG tablet Take 1 tablet (10 mg total) by mouth daily as needed for allergies. Active HYDROmorphone (DILAUDID) 2 MG tablet Take 0.5 tablets (1 mg total) by mouth every 4 (four) hours as needed for pain (specific location in comments). Partial fill ok 20 tablet Active acetaminophen (TYLENOL) 325 mg tablet [The details of the medication are not available because there are pending changes by a home health clinician.] Active Additional Information Patient not taking.Reason: Other (duplicate order), Reported on 12/02/2024 aspirin 81 mg chewable tablet [The details of the medication are not available because there are pending changes by a home health clinician.] 90 tablet 1 Active Additional Information Patient not taking.Reason: Other (duplicate order), Reported on 12/02/2024 clopidogrel (PLAVIX) 75 mg tablet Take 1 tablet (75 mg total) by mouth daily. 90 tablet 1 Active docusate sodium (COLACE) 100 MG capsule [The details of the medication are not available because there are pending changes by a home health clinician.] Active Additional Information Patient not taking.Reason: Other (duplicate order), Reported on 12/02/2024 ezetimibe (ZETIA) 10 mg tablet [The details of the medication are not available because there are pending changes by a home health clinician.] Active Additional Information Patient not taking.Reason: Other (duplicate order), Reported on 12/02/2024 lisinopril (PRINIVIL,ZESTRI L) 30 MG tablet [The details of the medication are not available because there are pending changes by a home health clinician.] Active Additional Information Patient not taking.Reason: Other, Reported on 12/02/2024 ranolazine (RANEXA) 1,000 mg SR tablet [The details of the medication are not available because there are pending changes by a home health clinician.] 5 Active Additional Information Patient not taking.Reason: Other, Reported on 12/02/2024 apixaban (ELIQUIS) 2.5 mg [The details of the medication are not available because there are pending changes by a home health clinician.] 5 Active Additional Information Patient not taking.Reason: Other (duplicate order), Reported on 12/02/2024 metFORMIN (GLUCOPHAGE) 500 MG tablet Take 1,000 mg by mouth 2 (two) times a day with meals. 3 Active DULoxetine (CYMBALTA) 60 MG capsule Take 60 mg by mouth daily. 5 Active omeprazole (PRILOSEC) 40 MG capsule Take 40 mg by mouth daily. 5 Active gabapentin (NEURONTIN) 100 MG capsule Take 200 mg by mouth 3 (three) times a day. 5 Active rosuvastatin (CRESTOR) 40 MG tablet Take 40 mg by mouth daily. 5 Active pantoprazole (PROTONIX) 40 MG tablet Take 40 mg by mouth daily. 5 Active naproxen sodium (ALEVE) 220 MG tablet Take 220 mg by mouth 2 (two) times a day with meals. 5 Active betamethasone dipropionate 0.05 % cream Apply 1 Application topically 2 (two) times a day. 5 Active Active Problems Problem Noted Date Diagnosed Date Ischemic leg 11/17/2024 PAD (peripheral artery disease) 11/17/2024 Syncope 11/03/2024 Assessment & Plan (11/05/2024 12:10 AM EDT): Patient had syncopized causing her ankle fracture Patient repeatedly removed tele monitor iso confusion, could consider quality assurance monitor chassis on dc TTE EF 60%, mild TR. Assessment & Plan (11/03/2024 10:30 AM EDT): Patient's PCP at [facility] reports that at [facility] the patient had actually syncopized causing her ankle fracture She was stable on the quality assurance monitor chassis I will replace it if she is amenable To rule out dysrhythmia, will check orthostatic vital signs and echocardiogram to start Altered mental status, unspe cified altered mental status type 11/02/2024 Acute encephalopathy 10/31/2024 Assessment & Plan (11/05/2024 12:10 AM EDT): Unclear etiology, may be related to serotonin syndrome, patient also had brief episodes of hypertension during hospital stay No known history of encephalopathy per family, strong family history of early onset dementia TSH ammonia B12 folate CT brain MRI brain EEG all unremarkable Mental status waxing and waning. Overall improved over the last 24 to 48 hours It appears that she had some medication noncompliance as an outpatient per her daughter. In July she was prescribed gabapentin 600 mg 3 times daily along with Cymbalta 90 mg. She had not filled these prescriptions since July but they were restarted when she was seen at [facility] and transferred to [facility]. She was also given tramadol and together these may have contributed to serotonin syndrome. On presentation she had jerking movements altered mental status, hypertension, clonus and hyperreflexia. [facility] neurologist felt that her presentation was consistent with toxic metabolic encephalopathy, possibly serotonin syndrome. Recommended supportive care, felt that this can persist for days to weeks. Dr Joyce did not recommend further testing such as lumbar puncture Assessment & Plan (11/03/2024 8:46 AM EDT): Unclear etiology, may be related to serotonin syndrome, patient also had brief episodes of hypertension during hospital stay No known history of encephalopathy per family, strong family history of early onset dementia TSH ammonia B12 folate CT brain MRI brain EEG all unremarkable Mental status waxing and waning. Overall improved over the last 24 to 48 hours It appears that she had some medication noncompliance as an outpatient per her daughter. In July she was prescribed gabapentin 600 mg 3 times daily along with Cymbalta 90 mg. She had not filled these prescriptions since July but they were restarted when she was seen at [facility] and transferred to [facility]. She was also given tramadol and together these may have contributed to serotonin syndrome. On presentation she had jerking movements altered mental status and at times hypertension On exam she did have clonus and hyperreflexia [facility] neurologist felt that her presentation was consistent with toxic metabolic encephalopathy, possibly serotonin syndrome. Recommended supportive care, felt that this can persist for days to weeks. Dr Joyce did not recommend further testing such as lumbar puncture Assessment & Plan (11/02/2024 12:09 PM EDT): Unclear etiology TSH ammonia B12 folate CT brain MRI brain EEG all unremarkable Mental status waxing and waning. She had improved to baseline yesterday but then in the evening she became more hypotensive and confused exam Looking at the patient's med reconciliation pharmacy dispense report she had been on Cymbalta 90 mg daily along with gabapentin 600 mg 3 times daily in July but this prescription was not renewed, she had been in [place]. She has not picked these medications up at all in [place] and they were limited prescriptions for 30 days When she was at [facility] she listed these meds as chronic and they were restarted at the [facility] along with tramadol Given her altered mental status jerking movements and hypertension there is concern for serotonin syndrome. Her last dose of Cymbalta was yesterday afternoon last gabapentin was at [facility]. She has gotten no tramadol here Other possibilities include hypertensive encephalopathy, infection. On exam today she has a completely nonfocal neurologic exam but still has occasional jerking movements, 3+ reflexes. She did have 5 beats of clonus with flexing her right ankle but this was not sustained. No significant nystagmus. She does have a mild headache which she states is new [facility] neurologist consulted, I have also asked my attending physician Dr. Sy to examine the patient For now, supportive care, as needed benzodiazepines would avoid antipsychotics or any medications that could have serotonergic effects [facility] neurologist felt that her presentation was consistent with toxic metabolic encephalopathy, possibly serotonin syndrome. Recommended supportive care, felt that this can persist for days to weeks. Dr Joyce did not recommend further testing today such as lumbar puncture Assessment & Plan (11/02/2024 7:21 AM EDT): Patient reportedly had jerking movements at the rehab and family had noticed slurred speech and possible facial droop. So far extensive workup has been unrevealing of etiology. She did initially respond to Narcan but then became confused again, mental status has been waxing and waning. UA and chest x-ray unremarkable, patient is afebrile, lab work unremarkable, patient has normal white blood cell count, hemoglobin stable overnight, B12, folic acid, procalcitonin, lactate, ammonia, ESR, UIBC, LFTs, creatinine, iron, reticulocytes within normal limits. Blood cultures no growth. Will await EEG, likely cannot be performed on the weekend, will also check brain MRI and SARS-CoV-2 PCR/influenza although low suspicion I was able to speak to the patient's PCP. She notes that the patient had actually stopped gabapentin although had gotten a prescription for it in [place] in July. We will stop this completely as this may be causing some of her symptoms in combination with ultram, some possible serotonergic effects. She is not having any tachycardia or sustained hypertension, no dilation of the pupils or diaphoresis Assessment & Plan (10/31/2024 6:07 PM EDT): Patient presents today with altered mental status, sent in from [facility], found to be twitching although no tonic-clonic seizure activity was visualized. Apparently had difficulty with pain last night and received all of her as needed's. There was some concern over patient being narcotize and she did respond to Narcan although became confused again after 90 minutes. Looking at the longterm [facility], she was on Ultram which she has tolerated in the past. Per her son, she is currently back to normal. Patient denies any shortness of breath, headache, head trauma, chest pain, abdominal pain, nausea, vomiting, diarrhea, dysuria or bleeding. In the ED her labs are unremarkable and vital signs are stable, CT head showed no acute pathology. Lactate low, glucose within normal limits. Drug screen negative, urinalysis without pyuria, chest x-ray showed no acute cardiopulmonary abnormality. Her son also states she seemed to perk up most after IV fluid. On exam she is alert and oriented x 3 responding appropriately and has a nonfocal neurologic exam, no worrisome physical findings of infection on exam Plan Monitor neurologic status media monitor Continuous O2 sat monitor EEG Follow labs and physical exam Check B12, ammonia, folate, RPR and blood cultures Avoid Ultram and narcotics Angina pectoris 10/31/2024 Carotid atherosclerosis 10/31/2024 Coronary arteriosclerosis 10/31/2024 Assessment & Plan (11/05/2024 12:10 AM EDT): Will continue the patient's Plavix and beta-carole, ranolazine, statin Beta-carole is up-to-date in terms of dispense report, Plavix was not, but she states she is supposed to be taking it for history of peripheral vascular disease Zetia has recently been dispensed Assessment & Plan (11/03/2024 8:46 AM EDT): Will continue the patient's Plavix and beta-carole, ranolazine, statin Beta-carole is up-to-date in terms of dispense report, Plavix was not, but she states she is supposed to be taking it for history of peripheral vascular disease Zetia has recently been dispensed Assessment & Plan (11/02/2024 9:12 AM EDT): Will continue the patient's Plavix and beta-carole, ranolazine, statin Beta-carole is up-to-date in terms of dispense report, Plavix was not No acute chest symptoms Assessment & Plan (11/01/2024 8:56 AM EDT): Will continue the patient's Plavix and beta-carole, ranolazine, statin No acute chest symptoms Assessment & Plan (10/31/2024 6:07 PM EDT): Will continue the patient's Plavix and beta-carole, ranolazine, statin Patient denies chest pain or dyspnea Chest x-ray without acute cardiopulmonary abnormality EKG shows normal sinus rhythm no acute ST segment elevation or depression Depressive disorder 10/31/2024 Diabetes mellitus 10/31/2024 Assessment & Plan (11/05/2024 12:10 AM EDT): It appears she is now only taking the Ozempic based on dispense report from pharmacy, she has also been prescribed Tresiba and metformin in the past. While here she has been on low-dose basal bolus insulin Assessment & Plan (11/03/2024 8:46 AM EDT): It appears she is now only taking the Ozempic based on dispense report from pharmacy, she has also been prescribed Tresiba and metformin in the past. While here she has been on low-dose basal bolus insulin Assessment & Plan (11/02/2024 9:12 AM EDT): The patient listed multiple agents on arrival to the ER, from the pharmacy dispense report it looks like she is only taking Ozempic as an outpatient Currently stable on basal bolus insulin Assessment & Plan (11/01/2024 8:56 AM EDT): Patient is on multiple agents including metformin, Ozempic and Tresiba. Requiring less while hospitalized. She is currently stable with normal glucose on 10 units of glargine at bedtime. She was not noted to have hypoglycemia at any point during the hospital stay or by labs on 10/29 which were done at her rehab Assessment & Plan (10/31/2024 6:07 PM EDT): Will continue formulary substitute for Tresiba, hold metformin in the setting of acute hospitalization, will write for sliding scale Hypertensive urgency 10/31/2024 Assessment & Plan (11/05/2024 12:10 AM EDT): Episodic hypertension, much improved over the last 24 hours Given 1 dose of nifedipine yesterday 10 mg p.o. and placed back on lisinopril which she has taken in the past. Continues on metoprolol. As needed hydralazine ordered but has not needed to be given Assessment & Plan (11/03/2024 8:46 AM EDT): Episodic hypertension, much improved over the last 24 hours Given 1 dose of nifedipine yesterday 10 mg p.o. and placed back on lisinopril which she has taken in the past. Continues on metoprolol. As needed hydralazine ordered but has not needed to be given Assessment & Plan (11/02/2024 9:12 AM EDT): Patient was initially hypertensive and then yesterday this improved. She became elevated again last evening. We have uptitrated her antihypertensives to restart lisinopril which she had been on in the past. Continue metoprolol as needed hydralazine also ordered. [facility] neurology consulted It also looks like she was prescribed nifedipine in July but this was not continued Assessment & Plan (11/01/2024 8:56 AM EDT): Improved blood pressure overnight Assessment & Plan (10/31/2024 6:07 PM EDT): Relatively hypotensive presently, will order patient's antihypertensives with hold parameters Gentle IV fluid overnight Peripheral vascular disease 10/31/2024 Overview (10/31/2024): leg stents x5 in R leg, x2 in L, last in May 2017 History of fracture of left ankle 10/31/2024 Assessment & Plan (11/05/2024 12:10 AM EDT): Fracture last week Patient had been taking her wrap for the splint off and on. X-ray did not show significant displacement, she will need orthopedic follow-up. Will likely need to return to [facility] Assessment & Plan (11/03/2024 8:46 AM EDT): Fracture last week Patient had been taking her wrap for the splint off and on, now leaving it intact. X-ray did not show significant displacement, she will need orthopedic follow-up DORINDA Will likely need to return to [facility] Assessment & Plan (11/02/2024 9:12 AM EDT): Fracture last week Patient has been taking her splint wrap on and off, no significant displacement per x-ray Patient states the symptoms have gotten better less pain overnight although she does have itchy toes Assessment & Plan (11/01/2024 10:39 AM EDT): Ankle fracture last week, she says about 5 days ago, she states nonweightbearing and will need to follow-up with orthopedist, splint in place, ER physician is applying a wrap to it as it was unwrapped initially. Will continue to attempt nonnarcotic analgesia, multimodal analgesia today. PT OT Will stop gabapentin as she may be having reaction to this medication -she had listed as a medication from [facility] but was likely an error as she is not currently prescribed this Will check x-ray of the left ankle, consideration for orthopedic consult Patient states she is not allergic to Tylenol and I will start scheduled now, Toradol, nonnarcotic analgesia Assessment & Plan (10/31/2024 6:07 PM EDT): Ankle fracture last week, she says about 5 days ago, she states nonweightbearing and will need to follow-up with orthopedist, splint in place, ER physician is applying a wrap to it as it was unwrapped initially. The patient states she has a burning sensation at the upper aspect on the left, there are no lesions I was able to visualize. She may be having neuropathic pain. Will attempt to use nonnarcotic analgesia as able in the setting of mental status change, will write for DVT prophylaxis and PT. Patient states she has a history of allergy to Tylenol, limits the ability for nonnarcotic analgesia, will write for lidocaine and limited very closely monitored Toradol-platelets are adequate creatinine 1.3 Anemia 06/27/2017 Assessment & Plan (11/05/2024 12:10 AM EDT): Anemia-unknown baseline. Hemoglobin has been fairly stable slight drop overnight likely due to IV fluids. No signs or symptoms of bleeding Assessment & Plan (11/03/2024 8:46 AM EDT): Anemia-unknown baseline. Hemoglobin has been fairly stable slight drop overnight likely due to IV fluids. No signs or symptoms of bleeding Assessment & Plan (11/02/2024 9:12 AM EDT): Anemia workup unremarkable, unknown baseline, hemoglobin 10.3 on 10/29, slightly decreased yesterday afternoon but stable overnight Assessment & Plan (11/01/2024 8:56 AM EDT): Anemia workup unremarkable, unknown baseline, hemoglobin 10.3 on 10/29, slightly decreased yesterday afternoon but stable overnight Assessment & Plan (10/31/2024 6:07 PM EDT): Labs on presentation showed a hemoglobin of 9.8, she did receive IV fluid bolus and hemoglobin is now 8.7, will order fit test, serial CBCs, follow Hemoglobin was 10.3 on 10/29 Allergic asthma 04/18/2017 Encounters Date Type Department Care Team Description 01/29/2025 Orders Only [facility] [address] [place] [phone] Homehealth, Interface ProviderMD 01/27/2025 Home Care Visit [facility] [address] [place] [address] Lizandro Nix, CCC-SPECIAL SERVICES COORDINATOR SPECIAL SERVICES COORDINATOR OASIS TRANSFER WITH DISCHARGE 01/25/2025 12:00 PM EDT Home Care Visit [facility] [address] [place] [address] Lizandro Nix, CCC-SPECIAL SERVICES COORDINATOR SPECIAL SERVICES COORDINATOR HOME VISIT 01/25/2025 Home Care Visit [facility] [address] [place] [address] Lizandro Nix, CCC-SPECIAL SERVICES COORDINATOR TELEPHONE ENCOUNTER 01/24/2025 1:30 PM EDT Home Care Visit [facility] [address] [place] [address] May Negrete, NESHA SN EVALUATION 01/23/2025 Home Care Visit [facility] [address] [place] [address] Katie Gutierrez, NESHA TELEPHONE ENCOUNTER 01/19/2025 12:45 PM EDT Home Care Visit [facility] [address] [place] [address] Lizzie Guzman, PT PT DISCIPLINE DISCHARGE VISIT 01/18/2025 Home Care Visit [facility] [address] [place] [address] Lizzie Guzman, PT TELEPHONE ENCOUNTER 01/13/2025 10:30 AM EDT Home Care Visit [facility] [address] [place] [address] Lizandro Stephens, OT OT DISCIPLINE DISCHARGE VISIT 01/12/2025 2:15 PM EDT Home Care Visit [facility] [address] [place] [address] Lizzie Guzman, PT PT HOME VISIT 01/12/2025 12:30 PM EDT Home Care Visit [facility] [address] [place] [address] Lizandro Nix, CCC-SPECIAL SERVICES COORDINATOR SPECIAL SERVICES COORDINATOR HOME VISIT 01/08/2025 11:45 AM EDT Home Care Visit [facility] [address] [place] [address] Gissell Ocasio, RADIO REPAIRMAN RADIO REPAIRMAN HOME VISIT 01/07/2025 2:00 PM EDT Home Care Visit [facility] [address] [place] [address] Lizandro Nix, CCC-SPECIAL SERVICES COORDINATOR SPECIAL SERVICES COORDINATOR HOME VISIT 01/04/2025 1:30 PM EDT Home Care Visit [facility] [address] [place] [address] Lizandro Nix, CCC-SPECIAL SERVICES COORDINATOR SPECIAL SERVICES COORDINATOR HOME VISIT 01/04/2025 12:30 PM EDT Home Care Visit [facility] [address] [place] [address] Lizandro Stephens, OT OT HOME VISIT 01/01/2025 3:30 PM EDT Home Care Visit [facility] [address] [place] [address] Mae Landon, PT PT HOME VISIT 01/01/2025 12:00 PM EDT Home Care Visit [facility] [address] [place] [address] Lizandro Stephens, OT OT HOME VISIT 12/30/2024 1:00 PM EDT Home Care Visit [facility] [address], [place] [phone] Lizzie Guzman, PT PT HOME VISIT 12/30/2024 12:00 PM EDT Home Care Visit [facility] [address] [place] [address] Lizandro Stephens, OT OT HOME VISIT 12/30/2024 10:00 AM EDT Home Care Visit [facility] [address] [place], [place] [phone] Lizandro Nix, [facility]-SPECIAL SERVICES COORDINATOR SPECIAL SERVICES COORDINATOR EVALUATION 12/24/2024 12:00 PM EDT Home Care Visit [facility] [address] [place] [address] Lizandro Stephens, OT OT EVALUATION 12/24/2024 10:30 AM EDT Home Care Visit [facility] [address] [place] [address] Lizzie Guzman, PT PT TFA VISIT 12/22/2024 11:30 AM EDT Home Care Visit [facility] [address] [place] [address] Lizzie Guzman, PT PT HOME VISIT 12/17/2024 Home Care Visit [facility] [address] [place] [address] Annita Parker, PT TELEPHONE ENCOUNTER 12/15/2024 11:00 AM EDT Home Care Visit [facility] [address] [place] [address] Lizzie Guzman, PT PT HOME VISIT 12/14/2024 Home Care Visit [facility] [address] [place], [place] [phone] Lizzie Guzman, PT TELEPHONE ENCOUNTER 12/14/2024 Home Care Visit [facility] [address], [place] [phone] Tiffany Jackson CASE COMMUNICATION 12/14/2024 Episode Documentation Update [facility] [address] [place] [phone] Meliza Patel 12/11/2024 12:45 PM EDT Home Care Visit [facility] [address] [place] [address] Lizzie Guzman, PT PT HOME VISIT 12/09/2024 12:45 PM EDT Home Care Visit [facility] [address] [place] [address] Lizzie Guzman, PT PT HOME VISIT 12/02/2024 12:00 PM EDT Home Care Visit [facility] [address] [place] [address] Lizzie Guzman, PT PT HOME VISIT 12/01/[address] [facility] Vascular Surgery [address] [place] [address], 4th Floor, [address] [place] [address] Josh Marrero 11/30/2024 1:45 PM EDT Home Care Visit [facility] [address] [place] [address] Lizzie Guzman, PT PT HOME VISIT 11/27/2024 Home Care Visit [facility] [address] [place] [address] Neha Cruz, PT TELEPHONE ENCOUNTER 11/27/2024 Plan of Care Documentation [facility] [address] [place] [phone] 11/26/2024 3:45 PM EDT Home Care Visit [facility] [address] [place] [phone] Neha Cruz, PT PT OASIS START OF CARE (SOC) 11/26/[address] [facility] Vascular Surgery [address] [place] [address], 4th Floor, [address] [place] [address] Josh Marrero 11/26/[address] [facility] Vascular Surgery [address] [facility], 4th Floor, [address] [place] [address] Josh Marrero PAD (peripheral artery disease) (Primary Dx) 11/25/[address] [facility] Department of Orthopaedic Surgery, Trauma Service [address] [facility], 3rd Floor, [address] [place] [address] Arleen Infante Fibula fracture (Primary Dx) 11/23/2024 Orders Only [facility] [address] [place] [phone] Homehealth, [facility] MD Idalia 11/21/2024 9:08 AM EDT Anesthesia Event [facility] PERIOPERATIVE DEPT [address] [place] [phone] Lori Brown MD Pulice, Teo W, MD, MSc 11/21/2024 8:10 AM EDT - 11/21/2024 11:[address] [facility] PERIOPERATIVE DEPT [address] [place] [phone] Nara Bingham MD LLE ANGIOGRAM WITH BALLOON ANGIOPLASTY AND STENT LEFT SFA & POPLITEAL ARTERTY 11/21/[address] [facility] Imaging - Peripoerative Interventional Radiology [address] [facility], 4th [place] [address] 11/21/[address] [facility] PERIOPERATIVE DEPT [address] [place] [phone] 11/20/2024 Orders Only [facility] Orthopedics & Sports Medicine [address] [place] [phone] Provider, MD Elsie 11/17/2024 6:42 PM EDT - 11/24/2024 12:33 PM EDT Hospital Encounter [facility] [address] [place] [phone] Fercho Sarabia MD Zacharias, Nikolaos P, MD Discharge Disposition: Home-Health Care Sv 11/17/2024 3:00 AM EDT Ancillary Procedure [facility], [address] [place] [address] Madalyn Medina MD 11/17/2024 2:51 AM EDT - 11/17/2024 4:19 PM EDT Emergency [facility] [address] [place] [address] Madalyn Medina MD Shukla, Sundeep M, MD, Jamin De MD Discharge Disposition: Short Term Hospital 11/17/2024 Procedure Pass [facility], Ct Scan - [address] [address] 11/15/2024 9:54 AM EDT - 11/15/2024 11:59 PM EDT Hospital Encounter [facility] [address] [place] [address] Kelsey Tamayo MD Discharge Disposition: Home or Self Care 11/15/2024 Transcribe Orders [facility] Specimen Processing [address] [place] [phone] Kelsey Tamayo MD Dysuria (Primary Dx); Altered mental status, unspecified altered mental status type from Last 3 Months Social History Tobacco Use Types Packs/Day Years Used Date Smoking Tobacco: Former Cigarettes Smokeless Tobacco: Never Tobacco Cessation:Counseling Given: Not Answered Alcohol Use Standard Drinks/Week Comments Not Currently [...] Don't know 11/17/2024 3: 05 AM EDT Last Filed Vital Signs Vital Sign Reading Time Taken Comments Blood Pressure 148/70 01/24/2025 1:49 PM EDT Pulse 68 01/25/2025 12:45 PM EDT Temperature 36.1 C (97 F) 01/24/2025 1:49 PM EDT Respiratory Rate 16 01/24/2025 1:49 PM EDT Oxygen Saturation 100% 01/25/2025 12:45 PM EDT Inhaled Oxygen Concentration - - Weight 60 kg (132 lb 4.4 oz) 11/19/2024 7:00 AM EDT Height 154.9 cm (5' 1 ) 11/17/2024 11:03 PM EDT Body Mass Index 24.99 11/17/2024 11:03 PM EDT Plan of Treatment Health Maintenance Due Date Last Done Comments DEPRESSION SCREENING 1972 SMOKING Hx and SMOKELESS TOBACCO SCREENING 1973 HEPATITIS C SCREENING 1978 HIV ONE-TIME SCREENING (18-65 YEARS) 1978 PNEUMOCOCCAL VACCINES (50+ years) (1 of 2 - PCV) 11/14/1979 PAP SMEAR 1981 MAMMOGRAM 2000 COLOGUARD 2005 COLONOSCOPY 2005 COLORECTAL CANCER SCREENING 2005 FIT TEST 2005 FOBT 2005 SIGMOIDOSCOPY 2005 VIRTUAL COLONOSCOPY 2005 ZOSTER VACCINES (1 of 2) 2010 Adult Td,Tdap Booster 01/04/2019 01/04/2009 RSV VACCINE (1 - Risk 60-74 years 1-dose series) 2020 COVID-19 VACCINE ( - 2023- season) 2024 DIABETIC EYE EXAM 10/31/2024 INFLUENZA VACCINE (#1) 2025 HEMOGLOBIN A1C 05/20/2025 11/18/2024, 11/17/2024 BLOOD PRESSURE 07/28/2025 01/25/2025 CREATININE LEVEL 11/23/2025 11/23/2024, 01/2025, 11/21/2024, Additional history exists POTASSIUM LEVEL 11/23/2025 11/23/2024, 06/0 01/2025, 11/21/2024, Additional history exists HEPATITIS A VACCINES Aged Out No long er eligible based on patient's age to complete this topic HIB VACCINES Aged Out No longer eligi ble based on patient's age to complete this topic MENINGOCOCCAL VACCINES (ACWY) Aged Out No longer eligible based on patient's age to complete this topic MENINGOCOCCAL VACCINES (B) Aged Out N o longer eligible based on patient's age to complete this topic Medical Devices Implanted Type 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 [employer] Carrier Device Identifier Shelf Expiration Date Model / Serial / Lot Device Closure 6-7fr Mynxgrip Vascular Femoral Artery Atraumatic Tip Bx/10ea - [id number] Implanted:Qty: 1 on 11/21/2024 by Nara Bingham MD at [facility] Closure Device Right: Femoral Artery [employer] SHARRI 09/21/2026 [id number] / / [id number] Stent Sherry 7mm 120mm 130cm Drug-Eluting Vascular - [id number] Implanted:Qty: 1 on 11/21/2024 by Nara Bingham MD at [facility] Stent Left: Arterial [employer] 12/05/2025 [id number] / / [id number] Description:Left SFA Stent Sherry 7mm 80mm 130cm Drug-Eluting Vascular - [id number] Implanted:Qty: 1 on 11/21/2024 by Nara Bingham MD at [facility] Stent Left: Femoral Artery [employer] 02/19/2026 [id number] / / [id number] Description:Left SFA Procedures Procedure Name Priority Date/Time Associated Diagnosis Comments MCT (MOBILE CARDIAC TELEMETRY) Routine 12/11/2024 2:36 PM EDT Syncope and collapse POCT GLUCOSE Routine 11/24/2024 11:06 AM EDT POCT GLUCOSE Routine 11/24/2024 7:01 AM EDT POCT GLUCOSE Routine 11/23/2024 10:32 PM EDT POCT GLUCOSE Routine 11/23/2024 4:31 PM EDT POCT GLUCOSE Routine 11/23/2024 11:00 AM EDT POCT GLUCOSE Routine 11/23/2024 7:07 AM EDT CBC Routine 11/23/2024 6:27 AM EDT PHOSPHORUS Routine 11/23/2024 6:27 AM EDT MAGNESIUM Routine 11/23/2024 6:27 AM EDT BASIC METABOLIC PANEL Routine 11/23/2024 6:27 AM EDT POCT GLUCOSE Routine 11/22/2024 4:17 PM EDT POCT GLUCOSE Routine 11/22/2024 11:52 AM EDT POCT GLUCOSE Routine 11/22/2024 7:07 AM EDT CBC Routine 11/22/2024 6:00 AM EDT PHOSPHORUS Routine 11/22/2024 6:00 AM EDT MAGNESIUM Routine 11/22/2024 6:00 AM EDT BASIC METABOLIC PANEL Routine 11/22/2024 6:00 AM EDT PTT STAT 11/22/2024 6:00 AM EDT POCT GLUCOSE Routine 11/21/2024 8:25 PM EDT POCT GLUCOSE Routine 11/21/2024 4:13 PM EDT POCT GLUCOSE Routine 11/21/2024 1:00 PM EDT POCT GLUCOSE Routine 11/21/2024 11:29 AM EDT FL VASCULAR SURGERY IMAGING Routine 11/21/2024 11:14 AM EDT POCT ACTIVATED CLOTTING TIME Routine 11/21/2024 11:00 AM EDT POCT GLUCOSE Routine 11/21/2024 10:23 AM EDT ANGIOGRAM LEG 11/21/2024 9:12 AM EDT Ischemic leg Special Needs [id number] OrnellaChanged dated to 11/21/2024 TYPE AND SCREEN (ABO,RH,ANTIBODY SCREEN) Routine 11/21/2024 7:43 AM EDT POCT GLUCOSE Routine 11/21/2024 7:04 AM EDT CBC Routine 11/21/2024 2:13 AM EDT PTT STAT 11/21/2024 2:13 AM EDT PHOSPHORUS Routine 11/21/2024 2:13 AM EDT MAGNESIUM Routine 11/21/2024 2:13 AM EDT BASIC METABOLIC PANEL Routine 11/21/2024 2:13 AM EDT POCT GLUCOSE Routine 11/20/2024 8:24 PM EDT POCT GLUCOSE Routine 11/20/2024 4:14 PM EDT OUTSIDE IMAGING Routine 11/20/2024 2:44 PM EDT PTT STAT 11/20/2024 1:24 PM EDT POCT GLUCOSE Routine 11/20/2024 11:09 AM EDT POCT GLUCOSE Routine 11/20/2024 6:52 AM EDT CREAT. COMMENT Routine 11/20/2024 2:06 AM EDT CBC Routine 11/20/2024 2:06 AM EDT PHOSPHORUS Routine 11/20/2024 2:06 AM EDT MAGNESIUM Routine 11/20/2024 2:06 AM EDT BASIC METABOLIC PANEL Routine 11/20/2024 2:06 AM EDT PTT STAT 11/20/2024 2:06 AM EDT POCT GLUCOSE Routine 11/19/2024 8:25 PM EDT PTT STAT 11/19/2024 7:34 PM EDT POCT GLUCOSE Routine 11/19/2024 4:42 PM EDT XR ANKLE 1 VIEW WITH STRESS (LEFT) Routine 11/19/2024 3:42 PM EDT XR ANKLE 3 OR MORE VIEWS (LEFT) Routine 11/19/2024 1:16 PM EDT PTT STAT 11/19/2024 12:24 PM EDT POCT GLUCOSE Routine 11/19/2024 11:00 AM EDT XR ANKLE 3 OR MORE VIEWS (LEFT) Routine 11/19/2024 10:16 AM EDT POCT GLUCOSE Routine 11/19/2024 7:07 AM EDT PTT STAT 11/19/2024 5:20 AM EDT CBC Routine 11/19/2024 5:20 AM EDT PHOSPHORUS Routine 11/19/2024 5:20 AM EDT MAGNESIUM Routine 11/19/2024 5:20 AM EDT BASIC METABOLIC PANEL Routine 11/19/2024 5:20 AM EDT PTT STAT 11/18/2024 10:47 PM EDT POCT GLUCOSE Routine 11/18/2024 8:07 PM EDT POCT GLUCOSE Routine 11/18/2024 4:45 PM EDT PTT STAT 11/18/2024 4:31 PM EDT POCT GLUCOSE Routine 11/18/2024 11:56 AM EDT US LOWER EXTREMITY ARTERIES (MIGUELITO) PHYSIO COMPLETE BILAT Routine 11/18/2024 11:35 AM EDT Ischemic leg PAD (peripheral artery disease) PTT STAT 11/18/2024 10:05 AM EDT POCT GLUCOSE Routine 11/18/2024 7:26 AM EDT URINE SEDIMENT Routine 11/18/2024 6:34 AM EDT URINALYSIS W/REFLEX URINE CULTURE Routine 11/18/2024 6:34 AM EDT PTT Routine 11/18/2024 3:40 AM EDT PT-INR Routine 11/18/2024 3:40 AM EDT CBC Routine 11/18/2024 3:40 AM EDT HEMOGLOBIN A1C Routine 11/18/2024 3:40 AM EDT PHOSPHORUS Routine 11/18/2024 3:40 AM EDT MAGNESIUM Routine 11/18/2024 3:40 AM EDT BASIC METABOLIC PANEL Routine 11/18/2024 3:40 AM EDT LIPID PANEL Routine 11/18/2024 3:40 AM EDT LFTS (HEPATIC PANEL) Routine 11/18/2024 3:40 AM EDT TYPE AND SCREEN (ABO,RH,ANTIBODY SCREEN) Routine 11/17/2024 9:08 PM EDT PTT Routine 11/17/2024 9:05 PM EDT PT-INR Routine 11/17/2024 9:05 PM EDT PHOSPHORUS Routine 11/17/2024 9:05 PM EDT MAGNESIUM Routine 11/17/2024 9:05 PM EDT BASIC METABOLIC PANEL Routine 11/17/2024 9:05 PM EDT HEMOGLOBIN A1C Routine 11/17/2024 9:05 PM EDT ANTI-XA (FOR UF HEPARIN) STAT 11/17/2024 2:53 PM EDT POCT GLUCOSE Routine 11/17/2024 1:49 PM EDT BLOOD CULTURE, ROUTINE STAT 11/17/2024 10:28 AM EDT BLOOD CULTURE, ROUTINE STAT 11/17/2024 10:28 AM EDT ANTI-XA (FOR UF HEPARIN) STAT 11/17/2024 8:[address] ANGIO LOWER EXTREMITY WITH AND WITHOUT CONTRAST (LEFT) Routine 11/17/2024 4:23 AM EDT PT-INR STAT 11/17/2024 3:27 AM EDT CPK (CREATINE KINASE) STAT 11/17/2024 3:27 AM EDT BASIC METABOLIC PANEL STAT 11/17/2024 3:27 AM EDT CBC AND DIFFERENTIAL STAT 11/17/2024 3:27 AM EDT US BEDSIDE Routine 11/17/2024 2:55 AM EDT URINE SEDIMENT Routine 11/15/2024 2:00 AM EDT URINALYSIS Routine 11/15/2024 2:00 AM EDT Dysuria Altered mental status, unspecified altered mental status type URINE CULTURE Routine 11/15/2024 2:00 AM EDT Dysuria Altered mental status, unspecified altered mental status type from Last 3 Months Results * MCT (Mobile Cardiac Telemetry) (12/11/2024 2:36 PM EDT) Anatomical Region Laterality Modality Heart Other Narrative 12/12/2024 8:12 AM EDT Impression: All normal sinus rhythm with normal minimum average and max heart rates. There was no evidence of atrial fibrillation there were very short asymptomatic bursts of SVT and no evidence of heart block. us Matt Castorena DO, MPH [facility] ORDERA BLES Final Result * (ABNORMAL) POCT Glucose (11/24/2024 11:06 AM EDT) Only the most recent of28 resultswithin the time period is included. Glucose, POCT 362(H) 70 - 110 mg/dL [facility] 11/24/2024 11:0 6 AM EDT 11/24/2024 11:13 AM EDT us Nara Bingham MD POINT OF CARE TEST ORDER REAL Final Result [address] [address] * (ABNORMAL) CBC (11/23/2024 6:27 AM EDT) Only the most recent of6 resultswithin the time period is included. WBC 9.45 4.00 - 11.00 K/uL [facility] RBC 3.48(L) 4.00 - 5.20 M/uL [facility] HGB 8.5(L) 12.0 - 16.0 g/dL [facility] HCT 27.1(L) 36.0 - 46.0 % [facility] PLT 250 150 - 450 K/uL [facility] MCV 77.9(L) 80.0 - 100.0 fL [facility] MCH 24.4(L) 27.0 - 31.0 pg [facility] MCHC 31.4(L) 32.0 - 36.0 g/dL [facility] RDW 17.5(H) 11.5 - 14.5 % [facility] MPV 11.1 8.4 - 12.0 fL [facility] NRBC 0.00 0.00 /100 WBCs [facility] ABSOLUTE NRBC 0.00 0.00 K/uL [facility] Blood 11/23/2024 6:27 AM EDT 11/23/2024 6:43 AM EDT Fercho Sarabia MD LAB BLOOD ORDERABLES Final Res ult Performing Organization Address City/[facility] Co de Phone Number [address] [address] * Phosphorus (11/23/2024 6:27 AM EDT) Only the most recent of7 resultswithin the time period is included. PHOSPHORUS 2.8 2.6 - 4.5 mg/dL [facility] Blood 11/23/2024 6:27 AM EDT 11/23/2024 6:42 AM EDT Fercho Sarabia MD LAB BLOOD ORDERABLES Final Res ult Performing Organization Address [facility] Co de Phone Number [address] [address] * Magnesium (11/23/2024 6:27 AM EDT) Only the most recent of7 resultswithin the time period is included. MAGNESIUM 1.7 1.7 - 2.4 mg/dL [facility] Blood 11/23/2024 6:27 AM EDT 11/23/2024 6:42 AM EDT Fercho Sarabia MD LAB BLOOD ORDERABLES Final Res ult Performing Organization Address City/[facility] Co de Phone Number [address] [address] * (ABNORMAL) Basic metabolic panel (11/23/2024 6:27 AM EDT) Only the most recent of8 resultswithin the time period is included. SODIUM 139 135 - 145 mmol/L [facility] POTASSIUM 4.5 3.4 - 5.0 mmol/L [facility] CHLORIDE 102 98 - 108 mmol/L [facility] CO2 23 23 - 32 mmol/L [facility] BUN 12 8 - 25 mg/dL [facility] CREATININE 0.88 0.50 - 1.00 mg/dL [facility] GLUCOSE 182(H) 70 - 110 mg/dL [facility] CALCIUM 9.2 8.5 - 10.5 mg/dL [facility] EGFR 73 >59 mL/min/1. 73m2 [facility] Comment:Estimated glomerular filtration rate calculated using the CKD-EPI refit equation. ANION GAP 14 3 - 17 mmol/L [facility] Blood 11/23/2024 6:27 AM EDT 11/23/2024 6:42 AM EDT Fercho Sarabia MD LAB BLOOD ORDERABLES Final Res ult [address] [address] * PTT (11/22/2024 6:00 AM EDT) Only the most recent of12 resultswithin the time period is included. APTT 32.3 24.0 - 37.5 sec [facility] Comment:Check MAR for the ta rget range that is ordered for your patient. Blood 11/22/2024 6:00 AM EDT 11/22/2024 6:24 AM EDT Fercho Sarabia MD LAB BLOOD ORDERABLES Final Res ult [address] [address] * [place] Vascular Surgery Imaging(Non Reportable) (11/21/2024 11:14 AM EDT) Anatomical Region Laterality Modality Radio Fluoroscop y 11/21/2024 12:3 8 PM EDT Narrative 11/21/2024 12:38 PM EDT Dose (mGy): 116.26 Dose Area Product (DAP): 3752.88 Fluoro time (min): 21 Procedure Note Energy Systems Engineer, Dictation - 11/21/2024 Dose (mGy): 116.26 Dose Area Product (DAP): 3752.88 Fluoro time (min): 21 us Nara Bingham MD IMG AMIGO Final Re sult * (ABNORMAL) POCT Activated Clotting Time (11/21/2024 11:00 AM EDT) ACTIVATED CLOT TIME 204(H) 90 - 130 sec [facility] 11/21/2024 11:0 0 AM EDT 11/21/2024 11:02 AM EDT us Nara Binhgam MD POINT OF CARE TEST ORDER REAL Final Result Performing Organization Address City/[facility] Co de Phone Number [address] [address] * Type and Screen (ABO,Rh,Antibody Screen) (11/21/2024 7:43 AM EDT) Only the most recent of2 resultswithin the time period is included. Expiration Date of Sample 11/24/2024 11:59 PM [facility] ABO A 11/21/2024 8:38 AM EDT [facility] Rh Negative 11/21/2024 8:38 AM EDT [facility] Resulting Agency [facility] Antibody Screen Negative 11/21/2024 8:55 AM EDT [facility] Blood 11/21/2024 7:43 AM EDT 11/21/2024 7:51 AM EDT us Fercho Sarabia MD BLOOD BANK TEST ORDERABLES Fin al Result Performing Organization Address City/[facility] Co de Phone Number [address] [address] * Outside Imaging Report Only (11/20/2024 2:44 PM EDT) us Historical Provider MD JOE XR CHEST Final Res ult * Creat. Comment (11/20/2024 2:06 AM EDT) Creat Comment Increasing Creatinine Value on your Patient: The calculated GFR may thus overestimate the true GFR and should not be used to guide medication dosing. Negative [facility] 11/20/2024 2:06 AM EDT 11/20/2024 2:14 AM EDT us Michael Lance DMD, MD LAB BLOOD ORDERABLES Final Result [address] [address] * XR ANKLE 1 VIEW WITH STRESS (LEFT) (11/19/2024 3:42 PM EDT) Anatomical Region Laterality Modality Ankle Left Computed Radiogr aphy 11/19/2024 3:43 PM EDT Impressions 11/19/2024 3:45 PM EDT Unchanged alignment of distal fibular fracture. Narrative 11/19/2024 3:45 PM EDT XR ANKLE 1 VIEW WITH STRESS (LEFT) Referring clinician's provided indication for this examination in [facility]: Fracture Follow Up COMPARISON: XR ANKLE 3 OR MORE VIEWS (LEFT) 13:13:35.000 FINDINGS: Unchanged alignment of distal fibular fracture at the level of the syndesmosis. The ankle mortise is symmetric. Talar dome is intact. Procedure Note Leonarda Martinez MD - 11/19/2024 XR ANKLE 1 VIEW WITH STRESS (LEFT) Referring clinician's provided indication for this examination in [facility]:Fracture Follow Up COMPARISON: XR ANKLE 3 OR MORE VIEWS (LEFT) 13:13:35.000 FINDINGS: Unchanged alignment of distal fibular fracture at the level of thesyndesmosis. The ankle mortise is symmetric. Talar dome is intact. IMPRESSION: Unchanged alignment of distal fibular fracture. Fercho REIDG XR LOWER EXTREMITY Final R esult * XR ANKLE 3 OR MORE VIEWS (LEFT) (11/19/2024 1:16 PM EDT) Anatomical Region Laterality Modality Ankle Left Computed Radiogr aphy 11/19/2024 1:30 PM EDT Impressions 11/19/2024 4:52 PM EDT Redemonstrated oblique distal fibular fracture in similar alignment. Minimal, if any, healing progression. ATTESTATION: Jesus Alberto Greenberg as teaching physician, have reviewed the images for this case and if necessary edited the report originally created by Rachele Vasquez. Narrative 11/19/2024 4:52 PM EDT XR ANKLE 3 OR MORE VIEWS (LEFT) Referring clinician's provided indication for this examination in Epic: Fracture, ankle COMPARISON: XR ANKLE 3 OR MORE VIEWS (LEFT) 10:12:31.000 FINDINGS: Redemonstrated oblique distal fibular fracture above the syndesmosis with mild lateral displacement of the distal fragment. No significant evidence of healing. Symmetric ankle mortise. Vascular calcifications. Small dorsal and plantar calcaneal spurs. Procedure Note Jesus Alberto Corea MD - 11/19/2024 XR ANKLE 3 OR MORE VIEWS (LEFT) Referring clinician's provided indication for this examination in [facility]:Fracture, ankle COMPARISON: XR ANKLE 3 OR MORE VIEWS (LEFT) 10:12:31.000 FINDINGS: Redemonstrated oblique distal fibular fracture above the syndesmosis withmild lateral displacement of the distal fragment. No significant evidenceof healing. Symmetric ankle mortise. Vascular calcifications. Small dorsaland plantar calcaneal spurs. IMPRESSION: Redemonstrated oblique distal fibular fracture in similar alignment.Minimal, if any, healing progression. ATTESTATION: Jesus Alberto Greenberg as teaching physician, have reviewed theimages for this case and if necessary edited the report originally createdby Rachele Vasquez. Oma Sommers SIGNALS ANALYST IMG XR LOWER EXTREMITY F inal Result * XR ANKLE 3 OR MORE VIEWS (LEFT) (11/19/2024 10:16 AM EDT) Anatomical Region Laterality Modality Ankle Left Computed Radiogr aphy 11/19/2024 10:2 2 AM EDT Impressions 11/19/2024 10:24 AM EDT Mildly displaced distal fibular fracture above the syndesmosis with minimal callus formation. Narrative 11/19/2024 10:24 AM EDT XR ANKLE 3 OR MORE VIEWS (LEFT) Referring clinician's provided indication for this examination in Epic: Fracture, ankle COMPARISON: XR ANKLE 3 OR MORE VIEWS (LEFT) FINDINGS: Oblique distal fibular fracture above the syndesmosis redemonstrated. Similar mild lateral displacement of the distal fragment. No substantial callus formation along the fracture plane. Ankle mortise appears symmetric. Mild ankle osteoarthritis. Plantar and posterior calcaneal enthesophytes are demonstrated. Scattered vascular calcifications. Minimal soft tissue swelling about the ankle. Procedure Note Lorenzo Hampton MD - 11/19/2024 XR ANKLE 3 OR MORE VIEWS (LEFT) Referring clinician's provided indication for this examination in [facility]:Fracture, ankle COMPARISON: XR ANKLE 3 OR MORE VIEWS (LEFT) FINDINGS: Oblique distal fibular fracture above the syndesmosis redemonstrated.Similar mild lateral displacement of the distal fragment. No substantialcallus formation along the fracture plane. Ankle mortise appearssymmetric. Mild ankle osteoarthritis. Plantar and posterior calcanealenthesophytes are demonstrated. Scattered vascular calcifications. Minimalsoft tissue swelling about the ankle. IMPRESSION: Mildly displaced distal fibular fracture above the syndesmosis withminimal callus formation. us Oma Sommers SIGNALS ANALYST IMG XR LOWER EXTREMITY F inal Result * US Lower Extremity Arteries (MIGUELITO) Physio Complete Bilat (11/18/2024 11:35 AM EDT) Anatomical Region Laterality Modality Ultrasound 11/18/2024 11:3 5 AM EDT Narrative 11/18/2024 12:31 PM EDT LOWER EXT PERIPHERAL PVR/MIGUELITO INDICATIONS / NOTES: Peripheral arterial disease, waitlisted for OR today TECHNIQUE: Noninvasive physiologic studies of the lower extremities including segmental pressures and pulse volume recordings was performed. RIGHT: Segmental Pressures Brachial: Deferred due to IV High thigh: >255 Low thigh: >255 Calf: >255 Posterior Tibial: 107 Dorsalis Pedis: 103 Toe Pressure: 58 Ankle/Brachial Index: 0.62 Toe /Brachial Index: 0.34 LEFT: Segmental Pressures Brachial: 173 High thigh: 81 Low thigh: 75 Calf: 53 Posterior Tibial: 39 Dorsalis Pedis: 30 Toe Pressure: 0 Ankle/Brachial Index: 0.23 Toe /Brachial Index: 0 FINDINGS: RIGHT: The ankle/brachial index (MIGUELITO) is 0.62. Pulse volume recordings (PVR) and segmental limb pressures suggestive of moderate inflow aorto-iliac/common femoral/profunda femoris/or proximal superficial femoral artery disease at rest. Thigh and calf pressures not able to obtain due to arterial calcification. Toe/brachial index and PVR suggestive of severe small vessel disease. LEFT: The ankle/brachial index (MIGUELITO) is 0.23. Pulse volume recordings (PVR) and segmental limb pressures suggestive of severe inflow aorto-iliac/common femoral/profunda femoris/or proximal superficial femoral artery disease at rest. Thigh and calf pressures not able to obtain due to arterial calcification. Metatarsal PVR suggestive of severe small vessel disease. Toe/brachial index and PVR not able to obtain, suggestive of possible small vessel occlusion. IMPRESSIONS: 1. Moderate peripheral arterial disease in the right leg. Disease is located in the inflow segments on the right side with multiple levels of involvement. Thigh and calf pressures not able to obtain due to arterial calcification. 2. Right toe/brachial index and PVR suggestive of severe small vessel disease. 3. Severe peripheral arterial disease in the left leg. Disease is located in the inflow segments on the left side with multiple levels of involvement. 4. Left metatarsal PVR suggestive of severe small vessel disease. 5. Left toe/brachial index and PVR not able to obtain, suggestive of possible small vessel occlusion. 6. The ankle/brachial index is 0.62 on the right and 0.23 on the left 7. The toe/brachial index is 0.34 on the right and 0 on the left. 8. The responding clinician Anderson Javier MD, PhD was paged regarding these findings at 11:41 AM on 11/18/24. ATTESTATION: I, Dr. Nara Bingham as teaching physician, have reviewed the images for this case and if necessary edited the report originally created by Catherine Curtis. Procedure Note Nara Bingham MD - 11/18/2024 LOWER EXT PERIPHERAL PVR/MIGUELITO INDICATIONS / NOTES: Peripheral arterial disease, waitlisted for OR today TECHNIQUE: Noninvasive physiologic studies of the lower extremities includingsegmental pressures and pulse volume recordings was performed. RIGHT: Segmental Pressures Brachial: Deferred due to IV High thigh: >255 Low thigh: >255 Calf: >255 Posterior Tibial: 107 Dorsalis Pedis: 103 Toe Pressure: 58 Ankle/Brachial Index: 0.62 Toe /Brachial Index: 0.34 LEFT: Segmental Pressures Brachial: 173 High thigh: 81 Low thigh: 75 Calf: 53 Posterior Tibial: 39 Dorsalis Pedis: 30 Toe Pressure: 0 Ankle/Brachial Index: 0.23 Toe /Brachial Index: 0 FINDINGS: RIGHT: The ankle/brachial index (MIGUELITO) is 0.62. Pulse volume recordings (PVR) andsegmental limb pressures suggestive of moderate inflow aorto-iliac/commonfemoral/profunda femoris/or proximal superficial femoral artery disease atrest. Thigh and calf pressures not able to obtain due to arterialcalcification. Toe/brachial index and PVR suggestive of severe smallvessel disease. LEFT: The ankle/brachial index (MIGUELITO) is 0.23. Pulse volume recordings (PVR) andsegmental limb pressures suggestive of severe inflow aorto-iliac/commonfemoral/profunda femoris/or proximal superficial femoral artery disease atrest. Thigh and calf pressures not able to obtain due to arterialcalcification. Metatarsal PVR suggestive of severe small vessel disease.Toe/brachial index and PVR not able to obtain, suggestive of possiblesmall vessel occlusion. IMPRESSIONS: 1. Moderate peripheral arterial disease in the right leg. Disease islocated in the inflow segments on the right side with multiple levels ofinvolvement. Thigh and calf pressures not able to obtain due to arterialcalcification. 2. Right toe/brachial index and PVR suggestive of severe small vesseldisease. 3. Severe peripheral arterial disease in the left leg. Disease is locatedin the inflow segments on the left side with multiple levels ofinvolvement. 4. Left metatarsal PVR suggestive of severe small vessel disease. 5. Left toe/brachial index and PVR not able to obtain, suggestive ofpossible small vessel occlusion. 6. The ankle/brachial index is 0.62 on the right and 0.23 on the left 7. The toe/brachial index is 0.34 on the right and 0 on the left. 8. The responding clinician Anderson Javier MD, PhD was paged regarding thesefindings at 11:41 AM on 11/18/24. ATTESTATION: I, Dr. Nara Bingham as teaching physician, havereviewed the images for this case and if necessary edited the reportoriginally created by Catherine Curtis. Fercho Sarabia MD US VASCULAR Final Result * (ABNORMAL) Urine Sediment (11/18/2024 6:34 AM EDT) RBC 0-2 0 - 2 /hpf [facility] WBC <10 <10 /hpf [facility] Comment:3 to 5 WBC's per hpf SQUAMOUS CELLS Present(A ) None /hpf [facility] 11/18/2024 6:34 AM EDT 11/18/2024 7:06 AM EDT Michael Lance DMD, MD URINE ORDERABLES Final Resu lt [facility] [address] [place] [address] * (ABNORMAL) Urinalysis w/reflex Urine Culture (11/18/2024 6:34 AM EDT) COLOR Yellow Yellow [facility] CLARITY Clear Clear [facility] GLUCOSE Negative Negative [facility] BILI Negative Negative [facility] KETONES Negative Negative [facility] SPECIFIC GRAVITY 1.019 1.001 - 1.035 [facility] BLOOD Negative Negative [facility] PH 6.0 5.0 - 9.0 [facility] Protein-UA Negative Negative [facility] UROBILINOGEN Negative Negative [facility] Negative Negative [facility] Leukocyte esterase, ur 2+(A) Negative [facility] Urine (Urine) 11/18/2024 6:3 4 AM EDT 11/18/2024 7:06 AM EDT Fercho Sarabia MD URINE ORDERABLES Final Result [address] [address] * LFTs (hepatic panel) (11/18/2024 3:40 AM EDT) ALBUMIN 3.6 3.3 - 5.0 g/dL [facility] TOTAL BILIRUBIN 0.2 0.0 - 1.0 mg/dL [facility] DIRECT BILIRUBIN 0.1 0.0 - 0.3 mg/dL [facility] ALKALINE PHOSPHATASE 57 30 - 100 U/L [facility] AST 13 9 - 32 U/L [facility] ALT 17 7 - 33 U/L [facility] TOTAL PROTEIN 6.7 6.0 - 8.3 g/dL [facility] GLOBULIN 3.1 1.9 - 4.1 g/dL [facility] Blood 11/18/2024 3:40 AM EDT 11/18/2024 3:45 AM EDT Fercho Sarabia MD LAB BLOOD ORDERABLES Final Res ult Performing Organization Address City/[facility]/ZIP Co de Phone Number [address] [address] * PT-INR (11/18/2024 3:40 AM EDT) Only the most recent of3 resultswithin the time period is included. PT 12.0 10.0 - 13.0 sec [facility] INR 1.1 0.9 - 1.1 [facility] 11/18/2024 3:40 AM EDT 11/18/2024 4:01 AM EDT Fercho Sarabia MD LAB BLOOD ORDERABLES Final Res ult [address] [address] * (ABNORMAL) Hemoglobin A1c (11/18/2024 3:40 AM EDT) Only the most recent of2 resultswithin the time period is included. HEMOGLOBIN A1C 7.1(H) 4.3 - 5.6 % [facility] Comment:HbA1c levels 5.7-6.4 % represent pre-diabetes, indicating impaired glucose control and an increased risk of developing diabetes compared with lower HbA1c levels. The diagnostic HbA1c level for diabetes is 6.5% or greater. CALC MEAN BLD GLUC 157 mg/dL [facility] Comment:There is no [facility] normal range for the Calculated Mean Blood Glucose (CMBG), however a HbA1c of 5.6% (upper limit of normal) represents a CMBG of 114 mg/dL. The diagnostic hemoglobin A1c level for diabetes is greater than or equal to 6.5% which represents a CMBG greater than or equal to 140 mg/dL. 11/18/2024 3:40 AM EDT 11/18/2024 4:01 AM EDT Fercho Sarabia MD LAB BLOOD ORDERABLES Final Res ult Performing Organization Address [facility] Co de Phone Number [address] [address] * Lipid panel (11/18/2024 3:40 AM EDT) HDL 48 35 - 100 mg/dL [facility] CHOLESTEROL 133 <200 mg/dL [facility] TRIGLYCERIDES 127 40 - 150 mg/dL [facility] LDL 60 50 - 129 mg/dL [facility] CARDIAC RISK RATIO 2.8 0.0 - 5.0 [facility] NON-HDL CHOLESTEROL 85 mg/dL [facility] Comment:Guidelines suggest a non-HDL cholesterol goal 30 mg/dL higher than the patient-specific LDL goal. Blood 11/18/2024 3:40 AM EDT 11/18/2024 3:45 AM EDT Fercho Sarabia MD LAB BLOOD ORDERABLES Final Res ult Performing Organization Address [facility] Co de Phone Number [address] [address] * (ABNORMAL) Anti-Xa (for UF heparin) (11/17/2024 2:53 PM EDT) Only the most recent of2 resultswithin the time period is included. ANTI FXA, UNFRACT. 0.91(H) 0.00 - 0.11 IU/mL [facility] Comment: Therapeutic Reference range is 0.3 to 0.7 IU/mL. See protocols for details. Blood 11/17/2024 2:53 PM EDT 11/17/2024 2:57 PM EDT Richard Griffith MD, MBA LAB BLOOD ORDERABLES Fi nal Result Performing Organization Address [facility] de Phone Number [address] [address] * Blood Culture, Routine (11/17/2024 10:28 AM EDT) Only the most recent of2 resultswithin the time period is included. Special Requests None 11/17/2024 10:14 AM EDT [facility] BLOOD CULTURE NO GROWTH 5 DAYS 11/22/2024 11:09 AM EDT [facility] Blood (Blood) 11/17/2024 10: 28 AM EDT 11/17/2024 10:37 AM EDT Comment:BLOOD Richard Griffith MD, MBA MICROBIOLOGY - GENERAL ORDERABLES Final Result Performing Organization Address [facility] de Phone Number [address] [address] * CT ANGIO LOWER EXTREMITY WITH AND WITHOUT CONTRAST (LEFT) (11/17/2024 4:23 AM EDT) Anatomical Region Laterality Modality Foot Left, Ankle Left, Knee Left, Thigh Left, Hi p Left Computed Tomography 11/17/2024 6:01 AM EDT Impressions 11/17/2024 6:20 AM EDT 1. Multifocal stenoses in the left superficial femoral artery, and severe in stent stenosis of the left SFA stent with areas of nonopacification. Popliteal artery is also severely stenosed to nonopacified, with distal reconstitution of the leg arteries via collaterals. Three-vessel runoff to the left ankle. 2. Left lateral malleolus fracture similar to prior. Narrative 11/17/2024 6:[address] ANGIO LOWER EXTREMITY WITH AND WITHOUT CONTRAST (LEFT) TECHNIQUE: CTA OF THE LEFT LOWER EXTREMITY Helically acquired axial images from the femoral area to the feet were obtained without oral or intravenous contrast, followed by helically acquired axial images during the dynamic IV injection of contrast. Immediate delayed images were obtained of the lower leg. 3D IMAGES WITH REFORMATTING AND POST-PROCESSING RECONSTRUCTIONS WERE PERFORMED AND INTERPRETED. INDICATIONS: Left lower extremity pain, ecchymosis, and cold extremity. Recent ankle fracture. COMPARISON: XR ANKLE 3 OR MORE VIEWS (LEFT) 2024- FINDINGS: VASCULAR: On the left: Moderate stenosis of the common femoral artery. Moderate to severe stenosis of the proximal superficial femoral artery. Stents in the superficial femoral artery. There is severe in stent stenosis including areas of nonopacification. Severe stenosis of the left popliteal artery with areas of opacification and reconstitution likely via collaterals. Moderate multifocal stenoses in the posterior tibial artery. Mild/moderate stenoses in the anterior tibial and popliteal arteries. 3 vessel runoff to the left ankle. VENOUS: Limited assessment due to phase of contrast. NON VASCULAR: Minimal displaced fracture of the lateral malleolus similar to recent radiographs. Procedure Note Mateo Davis MD - 11/17/2024 CT ANGIO LOWER EXTREMITY WITH AND WITHOUT CONTRAST (LEFT) TECHNIQUE: CTA OF THE LEFT LOWER EXTREMITY Helically acquired axial images from the femoral area to the feet wereobtained without oral or intravenous contrast, followed by helicallyacquired axial images during the dynamic IV injection of contrast.Immediate delayed images were obtained of the lower leg. 3D IMAGES WITH REFORMATTING AND POST-PROCESSING RECONSTRUCTIONS WEREPERFORMED AND INTERPRETED. INDICATIONS: Left lower extremity pain, ecchymosis, and cold extremity.Recent ankle fracture. COMPARISON: XR ANKLE 3 OR MORE VIEWS (LEFT) 2024- FINDINGS: VASCULAR: On the left: Moderate stenosis of the common femoral artery. Moderate tosevere stenosis of the proximal superficial femoral artery. Stents in thesuperficial femoral artery. There is severe in stent stenosis includingareas of nonopacification. Severe stenosis of the left popliteal arterywith areas of opacification and reconstitution likely via collaterals.Moderate multifocal stenoses in the posterior tibial artery. Mild/moderatestenoses in the anterior tibial and popliteal arteries. 3 vessel runoff tothe left ankle. VENOUS: Limited assessment due to phase of contrast. NON VASCULAR: Minimal displaced fracture of the lateral malleolus similarto recent radiographs. IMPRESSION: 1. Multifocal stenoses in the left superficial femoral artery, and severein stent stenosis of the left SFA stent with areas of nonopacification.Popliteal artery is also severely stenosed to nonopacified, with distalreconstitution of the leg arteries via collaterals. Three-vessel runoff tothe left ankle. 2. Left lateral malleolus fracture similar to prior. us Madalyn Medina MD IMG CT EXTREMITY Final Resul t * (ABNORMAL) CBC and differential (11/17/2024 3:27 AM EDT) WBC 6.67 4.00 - 11.00 K/uL [facility] RBC 3.91(L) 4.00 - 5.20 M/uL [facility] HGB 9.9(L) 12.0 - 16.0 g/dL [facility] HCT 30.1(L) 36.0 - 46.0 % [facility] PLT 374 150 - 450 K/uL [facility] MCV 77.0(L) 80.0 - 100.0 fL [facility] MCH 25.3(L) 27.0 - 31.0 pg [facility] MCHC 32.9 32.0 - 36.0 g/dL [facility] RDW 17.1(H) 11.5 - 14.5 % [facility] MPV 9.8 8.4 - 12.0 fL [facility] NRBC 0.00 0.00 /100 WBCs [facility] ABSOLUTE NRBC 0.00 0.00 K/uL [facility] DIFF METHOD Auto [facility] NEUTS 58.1 48.0 - 76.0 % [facility] LYMPHS 33.0 18.0 - 41.0 % [facility] MONOS 6.0 4.0 - 11.0 % [facility] EOS 2.2 0.0 - 5.0 % [facility] BASOS 0.4 0.0 - 1.5 % [facility] Granulocytes, immature (%) 0.3 0.0 - 0.9 % [facility] ABSOLUTE NEUTS 3.87 1.92 - 7.60 K/uL [facility] ABSOLUTE LYMPHS 2.20 0.72 - 4.10 K/uL [facility] ABSOLUTE MONOS 0.40 0.16 - 1.10 K/uL [facility] ABSOLUTE EOS 0.15 0.00 - 0.50 K/uL [facility] ABSOLUTE BASOS 0.03 0.00 - 0.15 K/uL [facility] Granulocytes, immature 0.02 0.00 - 0.09 K/uL [facility] Blood 11/17/2024 3:27 AM EDT 11/17/2024 3:30 AM EDT us Madalyn Medina MD LAB BLOOD ORDERABLES Final R esult Performing Organization Address [facility]/ZIP Co de Phone Number [address] [address] * CPK (creatine kinase) (11/17/2024 3:27 AM EDT) CREATINE KINASE 59 21 - 215 U/L [facility] Blood 11/17/2024 3:27 AM EDT 11/17/2024 3:30 AM EDT Madalyn Medina MD LAB BLOOD ORDERABLES Final R esult Performing Organization Address [facility] Co de Phone Number [address] [address] * US BEDSIDE (11/17/2024 2:55 AM EDT) Anatomical Region Laterality Modality Ultrasound Narrative 11/17/2024 2:55 AM EDT Madalyn Medina MD 11/17/2024 3:12 AM Bedside Ultrasound Date/Time: 11/17/2024 2:55 AM Performed by: Madalyn Medina MD Authorized by: Madalyn Medina MD Exam Type: DVT DVT Exam Findings & Impression: Indications: patient with extremity pain DVT Left Proximal: the left left common femoral vein was visualized and negative for DVT DVT Left Popliteal: the left popliteal vein was visualized and negative for DVT Other Findings: DP and PT pulses visualized on Doppler Overall Impression: negative Images: Images Saved: Yes Accession Number: [id number] Madalyn Medina MD IM POINT OF CARE EXAMS Keiko l Result * (ABNORMAL) Urine Culture (11/15/2024 2:00 AM EDT) Special Requests None 11/15/2024 9:55 AM EDT [facility] Urine Culture >100,000 colony forming units per mL KLEBSIELLA PNEUMONIAE This is an extended spectrum beta-lactamase (ESBL+) organism.(A) 11/17/2024 10:11 AM EDT [facility] Urine 11/15/2024 2:00 AM EDT 11/15/2024 10:00 AM EDT Narrative Organism Antibiotic Method Susceptibility Klebsiella pneumoniae Ampicillin EB METHOD >=32: Resistant Klebsiella pneumoniae Amoxicillin + Clavulanate EB ME THOD <=2: Susceptible Klebsiella pneumoniae Cefazolin EB METHOD <=4: Susceptible Klebsiella pneumoniae Cefepime EB METHOD <=1: Susceptible Klebsiella pneumoniae Ceftazidime EB METHOD <=1: Susceptible Klebsiella pneumoniae Ceftriaxone EB METHOD <=1: Susceptible Klebsiella pneumoniae Ciprofloxacin EB METHOD <=0.25: Susceptible Klebsiella pneumoniae Ertapenem EB METHOD <=0.5: Susceptible Klebsiella pneumoniae Extended Spectrum B-lactamase AL C METHOD Negative Comment:Corrected On : 11/18/2024 at 0753: Previously Reported as: POS Klebsiella pneumoniae Gentamicin EB METHOD <=1: Susceptible Klebsiella pneumoniae Imipenem EB METHOD <=0.25: Susceptible Klebsiella pneumoniae Levofloxacin EB METHOD <=0.12: Susceptible Klebsiella pneumoniae Nitrofurantoin EB METHOD 128: Resistant Comment:Corrected On : 11/18/2024 at 0753: Previously Reported as: 256 R Klebsiella pneumoniae Trimethoprim/sulfamethoxazole AL C METHOD <=20: Susceptible Klebsiella pneumoniae Ampicillin + Sulbactam EB METHO D 4: Susceptible Klebsiella pneumoniae Piperacillin EB METHOD >=128: Resistant Klebsiella pneumoniae Cefuroxime EB METHOD 2: Susceptible Klebsiella pneumoniae Cefoxitin EB METHOD <=4: Susceptible Klebsiella pneumoniae Aztreonam EB METHOD <=1: Susceptible Klebsiella pneumoniae Tetracycline EB METHOD 2: Susceptible Comment: us Kelsey Tamayo MD MICROBIOLOGY - GENERAL ORDERAB LES Final Result Performing Organization Address [facility]/ZIP Co de Phone Number [address] [address] * (ABNORMAL) Urine sediment (11/15/2024 2:00 AM EDT) WBC TOO NUMEROUS TO COUNT(A) NONE SEEN /hpf [facility] RBC 3-5(A) NONE SEEN /hpf [facility] URINE EPITHELIAL 11-20(A) NONE SEEN [facility] MUCUS Trace(A) NONE SEEN /hpf [facility] BACTERIA 3+(A) NONE SEEN /hpf [facility] CRYSTALS Trace [facility] Comment:Calcium Oxalate 11/15/2024 2:00 AM EDT 11/15/2024 9:59 AM EDT us Kelsey Tamayo MD URINE ORDERABLES Final Result Performing Organization Address [facility] Co de Phone Number [address] [address] * (ABNORMAL) Urinalysis (11/15/2024 2:00 AM EDT) COLOR Yellow Yellow [facility] CLARITY Clear [facility] GLUCOSE Negative Negative [facility] BILI Negative Negative [facility] KETONES Trace(A) Negative [facility] SPECIFIC GRAVITY 1.025 1.005 - 1.030 [facility] BLOOD Negative Negative [facility] PH 5.5 5.0 - 8.0 [facility] Protein-UA Negative Negative [facility] NITRITE Positive(A) Negative [facility] Leukocyte esterase, ur 2+(A) Negative [facility] Urine 11/15/2024 2:00 AM EDT 11/15/2024 9:59 AM EDT us Kelsey Tamayo MD URINE ORDERABLES Final Result [facility] [address] [place] [address] from Last 3 Months Additional Health Concerns Infection Onset Date Last Indicated 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 11/15/2024 Insurance [place] & B Advance Directives For more information, please contact: [phone] (9AM - 5PM [facility], Saturday-Saturday) Documents on File Type Date Recorded Patient Medical Lab Technologist Expl anation Healthcare Proxy 11/24/2024 4:43 PM MOLST 11/24/2024 11:48 AM * Full Code (Latest Code Status on File) Date Activated Date Inactivated Comments 10/31/2024 6:31 PM Question Answer Comments Code Status Confirmed With: Other (specify below ) Care Teams Automobile Taillight Assembler Relationship Specialty Start Date End Date Maria R Sarmiento MD [address] [place] [address] [place] [phone] PCP - General Internal Medicine 11/23/24 Additional Source Comments The information contained in this document represents components of the legal health record. It is not the complete legal health record.[facility]
--- OUTSIDE RECORDS SUMMARY | 2025-02-09 09:03 | XMS_ITS | Encounter Summary ---
Author Organization [facility] Address [address] [place] [phone] Phone Care Team Providers Care Nutrition Specialist Name Role Phone Kelsey Tamayo MD Primary Care Provider [phone] Maria R Sarmiento MD Primary Care Provider Encounter Details Date Type Department Care Team (Late st Contact Info) Description 11/21/2024 Procedure Pass [facility] PERIOPERATIVE DEPT [address] [place] [phone] Social History Tobacco Use Types Packs/Day Years [...] housing situation today? I have tamir sing 11/23/2024 How many times have you move [...] documented as of this encounter Care Teams Nutrition Specialist Relationship Specialty Start Date End Date Kelsey Tamayo MD [address] [place] [phone] PCP - General Internal Medicine 10/31/24 11/22/24 Maria R Sarmiento MD [address] [place] [address] [place] [phone] PCP - General Internal Medicine 11/23/24 documented as of this encounter Additional Source Comments The information contained in this document represents components of the legal health record. It is not the complete legal health record.[facility]
--- OUTSIDE RECORDS SUMMARY | 2025-02-09 09:03 | XMS_ITS | Encounter Summary ---
Author Organization [facility] Address [address] [place] [phone] Phone Care Team Providers Care Dry Chain Puller Name Role Phone Kelsey Tamayo MD Primary Care Provider [phone] Maria R Sarmiento MD Primary Care Provider Encounter Details Date Type Department Care Team (Late st Contact Info) Description 11/21/2024 Procedure Pass [facility] Imaging - Peripoerative Interventional Radiology [address] [place] [address], [address] [place] [address] Social History Tobacco Use Types Packs/Day Years [...] documented as of this encounter Care Teams Dry Chain Puller Relationship Specialty Start Date End Date Kelsey Tamayo MD [address] [place] [phone] PCP - General Internal Medicine 10/31/24 11/22/24 Maria R Sarmiento MD [address] [place] [address] [place] [phone] PCP - General Internal Medicine 11/23/24 documented as of this encounter Additional Source Comments The information contained in this document represents components of the legal health record. It is not the complete legal health record.[facility]
--- OUTSIDE RECORDS SUMMARY | 2025-02-09 09:03 | XMS_ITS | Encounter Summary ---
Author Organization [employer] Address [address] [place] [address] Care Team Providers Care Director Of Radiology Name Role Phone Unavailable Primary Care Provider [...]
--- OUTSIDE RECORDS SUMMARY | 2025-02-09 09:03 | XMS_ITS | Clinical Summary ---
Author Organization [employer] Address [address] [place] [address] [address] [place] [address] Care Team Providers Care Conduit Helper Name Role Phone Unavailable Primary Care Provider [...] 1960 FIT 1960 FOBT 1960 Sigmoidoscopy 1960 Disability Screening 1960 Alcohol/Substance Use Screening 1972 Tobacco Screening 1972 DTaP/Tdap/Td Vaccines (1 - Tdap) 11/14/1979 Pap Smear 1981 Cervical Cancer Screening 1990 HPV/Cotest 1990 Mammogram 2000 Pneumococcal Vaccine: 50+ Ye ars (1 of 1 - PCV) 2010 Zoster Vaccines (1 of 2) 2010 COVID-19 Vaccine ( - 2023-2 5 season) 2024 Influenza Vaccine (#1) 2025 RSV Patients and Pa tients Aged 60 [...] patient's age to complete this topic Meningococcal B Vaccine Aged Out No l onger eligible based on patient's age to complete [...]
== END 2025-02-09 09:31 | disposition home or self-care (01) ==
LOC: HO.PMC 08:46
PROVIDERS: PCP Internal Medicine; Visit Provider Nurse Practitioner Family
DX: M54.50 Low back pain, unspecified (principal); M53.3 Sacrococcygeal disorders, not elsewhere classified; R29.6 Repeated falls; M79.604 Pain in right leg; G89.29 Other chronic pain; L97.519 Non-pressure chronic ulcer of other part of right foot with unspecified severity
CPT/HCPCS: 99204

== ENCOUNTER → 2025-02-09 09:40 | Outpatient (BNV) | payer MEDICARE, MEDICAID, SELFPAY | PROVIDERS: PCP Internal Medicine; Visit Provider Radiology Diagnostic Radiology | DX: M54.50 Low back pain, unspecified (principal); M53.3 Sacrococcygeal disorders, not elsewhere classified | CPT/HCPCS: 72110; 72220 ==

== ENCOUNTER 2025-02-17 15:23 | Outpatient (REF) | payer MEDICARE, MEDICAID, SELFPAY ==
--- OUTSIDE RECORDS SUMMARY | 2025-02-18 16:21 | XMS_ITS | Encounter Summary ---
Author Organization [facility] Address [address] [place] [address] Phone Care Team Providers Care Roller Pneumatic Name Role Phone Kelsey Tamayo MD Primary Care Provider [phone] Maria R Sarmiento MD Primary Care Provider Encounter Details Date Type Department Care Team (Late st Contact Info) Description 11/17/2024 Procedure Pass [facility], Ct Scan - [address] [address] Social History Tobacco Use Types Packs/Day Years [...] 6:00 PM EDT Kizzy Fang RN * [place] Suicide Severity Rating Scale (Screener/Recent Self-Report) Question [...] documented as of this encounter Care Teams Roller Pneumatic Relationship Specialty Start Date End Date Kelsey Tamayo MD [address] [place] [address] [email or web address] PCP - General Internal Medicine 10/31/24 11/22/24 Maria R Sarmiento MD [address] [place] [address] [place] [address] PCP - General Internal Medicine 11/23/24 documented as of this encounter Additional Source Comments The information contained in this document represents components of the legal health record. It is not the complete legal health record.[facility]
--- OUTSIDE RECORDS SUMMARY | 2025-02-18 16:22 | XMS_ITS | Encounter Summary ---
Author Organization [facility] Address [address] [facility] [address] [place] [address] Phone Care Team Providers Care Mergers And Acquisitions Associate Name Role Phone Kelsey Tamayo MD Primary Care Provider Maria R Sarmiento MD Primary Care Provider Encounter Details Date Type Department Care Team (Late st Contact Info) Description 10/31/2024 Procedure Pass [facility], Ct Scan - [address] [address] Social History Tobacco Use Types Packs/Day Years [...] 7:00 PM EDT Kirstin Pearson RN * [place] Suicide Severity Rating Scale (Screener/Recent Self-Report) Question [...] documented as of this encounter Care Teams Mergers And Acquisitions Associate Relationship Specialty Start Date End Date Kelsey Tamayo MD [address] [place] [address] PCP - General Internal Medicine 10/31/24 11/22/24 Maria R Sarmiento MD [address] [place] [address] [place] [address] PCP - General Internal Medicine 11/23/24 documented as of this encounter Additional Source Comments The information contained in this document represents components of the legal health record. It is not the complete legal health record.[facility]
--- OUTSIDE RECORDS SUMMARY | 2025-02-18 16:22 | XMS_ITS | Patient Health Record ---
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 Plan Of Treatment No Information Insurance Providers Payer Name Payer Address Payer Phone Subscriber Number Group Number Insured Name Patient Relationship to Insured Coverage Start Date Coverage End Date [employer] [address] [address] [place] [address] [id number] Vee Parisi Self - patient is the insured Medical (General) History Medical History History ICD Code Gastroesphageal Reflux Anxiety Disorder Other sleep issue Heart Disease Depression Coronary Artery Disease High Blood pressure Peripheral Arterial Disease High Cholesterol Heart Problems Back pain Heart Attack ([place]) Allergies Surgical History Surgery Date(Month/Year) Cardiac Catheterization 07/2016 Peripheral Artery intervention 01/2018 Cardiac Catheterization 01/2016 Cardiac Catheterization 12/2015 Cardiac Catheterization 06/2015 Vascular surgery 03/2015 Stent Placement Breast Surgery Carpal Tunnel Surgery Heart Surgery
--- OUTSIDE RECORDS SUMMARY | 2025-02-18 16:22 | XMS_ITS | Encounter Summary ---
Author Organization [facility] Address [address] [facility] [address] [place] [address] Phone Care Team Providers Care Rnp Name Role Phone Kelsey Tamayo MD Primary Care Provider [phone] Maria R Sarmiento MD Primary Care Provider Encounter Details Date Type Department Care Team (Late st Contact Info) Description 10/31/2024 Procedure Pass [facility], Ct Scan - [address] [address] Social History Tobacco Use Types Packs/Day Years [...] 7:00 PM EDT Kirstin Pearson RN * [place] Suicide Severity Rating Scale (Screener/Recent Self-Report) Question [...] documented as of this encounter Care Teams Rnp Relationship Specialty Start Date End Date Kelsey Tamayo MD [address] [place] [address] PCP - General Internal Medicine 10/31/24 11/22/24 Maria R Sarmiento MD [address] [place] [address] [place] [address] PCP - General Internal Medicine 11/23/24 documented as of this encounter Additional Source Comments The information contained in this document represents components of the legal health record. It is not the complete legal health record.[facility]
--- OUTSIDE RECORDS SUMMARY | 2025-02-18 16:22 | XMS_ITS | Encounter Summary ---
Author Organization [facility] Address [address] [place] [address] Phone Care Team Providers Care Steel Rule Die Maker Name Role Phone Kelsey Tamayo MD Primary Care Provider Maria R Sarmiento MD Primary Care Provider Encounter Details Date Type Department Care Team (Late st Contact Info) Description 11/21/2024 Procedure Pass [facility] [address] [place] [phone] Social History Tobacco Use Types Packs/Day Years [...] documented as of this encounter Care Teams Steel Rule Die Maker Relationship Specialty Start Date End Date Kelsey Tamayo MD [address] [place] [address] PCP - General Internal Medicine 10/31/24 11/22/24 Maria R Sarmiento MD [address] [place] [address] [place] [address] PCP - General Internal Medicine 11/23/24 documented as of this encounter Additional Source Comments The information contained in this document represents components of the legal health record. It is not the complete legal health record.[facility]
--- OUTSIDE RECORDS SUMMARY | 2025-02-18 16:22 | XMS_ITS | Clinical Summary ---
Author Organization [employer] Address [address] [place] [address] 7t [place] [address] Care Team Providers Care Literacy Teacher Name Role Phone Unavailable Primary Care Provider [...]
--- OUTSIDE RECORDS SUMMARY | 2025-02-18 16:22 | XMS_ITS | Encounter Summary ---
Author Organization [facility] Address [address] [place] [address] Phone Care Team Providers Care Spectrograph Operator Name Role Phone Kelsey Tamayo MD Primary Care Provider [phone] Maria R Sarmiento MD Primary Care Provider Encounter Details Date Type Department Care Team (Late st Contact Info) Description 11/03/2024 Procedure Pass [facility] [address] [place] [address] Social History Tobacco Use Types Packs/Day Years [...] documented as of this encounter Care Teams Spectrograph Operator Relationship Specialty Start Date End Date Kelsey Tamayo MD [address] [place] [address] PCP - General Internal Medicine 10/31/24 11/22/24 Maria R Sarmiento MD [address] [place] [address] [place] [address] PCP - General Internal Medicine 11/23/24 documented as of this encounter Additional Source Comments The information contained in this document represents components of the legal health record. It is not the complete legal health record.[facility]
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
--- OUTSIDE RECORDS SUMMARY | 2025-02-18 16:22 | XMS_ITS | Encounter Summary ---
Author Organization [facility] Address [address] [place] [address] Phone Care Team Providers Care Journalist Name Role Phone Kelsey Tamayo MD Primary Care Provider [phone] Maria R Sarmiento MD Primary Care Provider Encounter Details Date Type Department Care Team (Late st Contact Info) Description 11/01/2024 Procedure Pass [facility], [address] [address] Social History Tobacco Use Types Packs/Day Years [...] documented as of this encounter Care Teams Journalist Relationship Specialty Start Date End Date Kelsey Tamayo MD [address] [place] [address] PCP - General Internal Medicine 10/31/24 11/22/24 Maria R Sarmiento MD [address] [place] [address] [place] [address] PCP - General Internal Medicine 11/23/24 documented as of this encounter Additional Source Comments The information contained in this document represents components of the legal health record. It is not the complete legal health record.[facility]
--- OUTSIDE RECORDS SUMMARY | 2025-02-18 16:22 | XMS_ITS | Encounter Summary ---
Author Organization [employer] Address [address] [facility] 7t [place] [address] Care Team Providers Care Lap Polisher Name Role Phone Unavailable Primary Care Provider [...]
--- OUTSIDE RECORDS SUMMARY | 2025-02-18 16:22 | XMS_ITS | Encounter Summary ---
Author Organization [facility] Address [address] [place] [address] Phone Care Team Providers Care Tire Fabric Inspector Name Role Phone Kelsey Tamayo MD Primary Care Provider [phone] Maria R Sarmiento MD Primary Care Provider Encounter Details Date Type Department Care Team (Late st Contact Info) Description 11/21/2024 Procedure Pass [facility] Interventional Radiology [address] [place] [address], 4th [place] [address] Social History Tobacco Use Types Packs/Day Years [...] documented as of this encounter Care Teams Tire Fabric Inspector Relationship Specialty Start Date End Date Kelsey Tamayo MD [address] [place] [address] PCP - General Internal Medicine 10/31/24 11/22/24 Maria R Sarmiento MD [address] [place] [address] [place] [phone] PCP - General Internal Medicine 11/23/24 documented as of this encounter Additional Source Comments The information contained in this document represents components of the legal health record. It is not the complete legal health record.[facility]
--- OUTSIDE RECORDS SUMMARY | 2025-02-18 16:22 | XMS_ITS | Encounter Summary ---
Author Organization [facility] Address [address] [place] [address] Phone Care Team Providers Care Freight Rate Analyst Name Role Phone Kelsey Tamayo MD Primary Care Provider [phone] Maria R Sarmiento MD Primary Care Provider Encounter Details Date Type Department Care Team (Late st Contact Info) Description 11/05/2024 Procedure Pass [facility]-In[facility]iology [address] [place] [address] Social History Tobacco Use Types Packs/Day Years [...] documented as of this encounter Care Teams Freight Rate Analyst Relationship Specialty Start Date End Date Kelsey Tamayo MD [address] [place] [address] PCP - General Internal Medicine 10/31/24 11/22/24 Maria R Sarmiento MD [address] [place] [address] Dr St[place] [address] PCP - General Internal Medicine 11/23/24 documented as of this encounter Additional Source Comments The information contained in this document represents components of the legal health record. It is not the complete legal health record.[facility]
== END 2025-02-17 15:24 | disposition home or self-care (01) ==
LOC: HO.HOSX 15:23
PROVIDERS: Visit Provider Physician Assistant
DX: Z13.89 Encounter for screening for other disorder (principal)

== ENCOUNTER 2025-02-26 08:21 | Outpatient (REF) | payer MEDICARE, MEDICAID, SELFPAY ==
--- OUTSIDE RECORDS SUMMARY | 2025-02-26 08:43 | XMS_ITS | Clinical Summary ---
Author Organization [employer] Address [address] [place] [address] 7t [place] [address] Care Team Providers Care Activities Director Scouting Name Role Phone Unavailable Primary Care Provider [...] COVID-19 Vaccine ( - 2023-2 5 season) 2025 Influenza Vaccine (#1) 2025 RSV Patients and [...]
--- OUTSIDE RECORDS SUMMARY | 2025-02-26 08:43 | XMS_ITS | Encounter Summary ---
Author Organization [employer] Address [address] [facility] 7t [place] [address] Care Team Providers Care Security Researcher Name Role Phone Unavailable Primary Care Provider [...]
--- OUTSIDE RECORDS SUMMARY | 2025-02-26 08:43 | XMS_ITS | Patient Health Record ---
Author Organization [facility] Address [address] [place] [address] Care Team Providers Care Movie Producer Name Role Phone Joanne Blankenship M.D Primary Care Provider Jesus Coleman Unavailable [phone] Allergies Allergen (clinical drug ingredient) Drug/Non Drug [...] day; Duration: 4 day(s) 05/08/2019 Unknown Nystop 334488 UNIT/GM 1 application Externally Unknown Clarithromycin 500 [...] Status W/U Status Risk Notes Problem Callosity ([id number]) Corns and callosities (L84) Active confirmed Plan Of Treatment No Information Insurance Providers Payer Name Payer Address Payer Phone Subscriber Number Group Number Insured Name Patient Relationship to Insured Coverage Start Date Coverage End Date [employer] [address] [address] [place] [address] [id number] Vee Parisi Self - patient is the insured Medical (General) History Medical History History ICD Code Gastroesphageal Reflux Anxiety Disorder Other sleep issue Heart Disease Depression Coronary Artery Disease High Blood pressure Peripheral Arterial Disease High Cholesterol Heart Problems Back pain Heart Attack ([place]) Allergies Surgical History Surgery Date(Month/Year) Cardiac Catheterization 07/2016 Peripheral Artery intervention 01/2018 Cardiac Catheterization 01/2016 Cardiac Catheterization 12/2015 Cardiac Catheterization 06/2015 Vascular surgery 03/2015 Stent Placement Breast Surgery Carpal Tunnel Surgery Heart Surgery
--- OUTSIDE RECORDS SUMMARY | 2025-02-26 08:43 | XMS_ITS | Patient Health Record ---
Author Organization [facility] Address [address] [place] [address] Care Team Providers Care In Store Representative Name Role Phone Torsten Maria R Primary Care Provider Unavailab Willian Warren Unavailable [phone] Allergies Allergen (clinical drug ingredient) Drug/Non Drug [...] Problem Acquired hammer toe of right foot (48289887983485 05) Other hammer toe(s) (acquired), right foot (M20.41) Active confirmed Problem Type 2 diabetes mellitus with peripheral angiopathy (380692759) Type 2 diabetes mellitus with diabetic peripheral angiopathy without gangrene (E11.51) Active confirmed Problem Acquired hammer toe of left foot (68528372519132 03) Other hammer toe(s) (acquired), left foot (M20.42) Active confirmed Plan Of Treatment Pending Test Test Name Order Date [id number] NAIL, 6 OR MORE 11/26/2022 [id number] NAIL, 6 OR MORE 02/25/2023 [id number] Plate 02/25/2023 [id number] Plate 11/26/2022 [id number] SKIN LESIONS, 2 TO 4 11/27/19 [id number] SKIN LESIONS, 2 TO 4 02/26/20 Insurance Providers Payer Name Payer Address Payer Phone Subscriber Number Group Number Insured Name Patient Relationship to Insured Coverage Start Date Coverage End Date [facility] 65 Medicare Preferred [address] [place] [address] [phone] [id number] Vee Parisi Self - patient is [...] Hand Surgery tooth Hospitalization History Reason Date(Month/Year) [facility]
== END 2025-02-26 08:22 | disposition home or self-care (01) ==
LOC: HO.HOSX 08:21
PROVIDERS: Visit Provider Physician Assistant
DX: Z13.89 Encounter for screening for other disorder (principal)

== ENCOUNTER 2025-04-15 11:50 | Outpatient (REF) | payer MEDICARE, MEDICAID, SELFPAY ==
--- OUTSIDE RECORDS SUMMARY | 2025-04-11 11:45 | XMS_ITS | Encounter Summary ---
Author Organization [facility] Address [address] [facility] [address] [place] [phone] Phone Care Team Providers Care Cooking Instructor Name Role Phone Maria R Sarmiento MD Primary Care Provider Reason for Visit * Auth/Cert (Routine) Specialty Diagnoses / Procedures Referred By Brian johansen Referred To Contact Referral ID Status Reason Start Date Expiration Date Visits Re quested Visits Authorized [id number] 1 1 Encounter Details Date Type Department Care Team (Late st Contact Info) Description 04/11/2025 11:45 AM EDT Home [facility] Visit [facility] [address] [place] [phone] Ade Duvall RN [address] [place] [address] [email or web address] SN HOME VISIT Social History Tobacco Use Types Packs/Day Years Used Date Smoking Tobacco: Former Cigarettes Smokeless Tobacco: Never Alcohol Use Standard Drinks/Week Comments Not Currently 0 (1 standard drink = 0.6 oz pur e alcohol) Home Health Assessment: Transportation Answer Date Recorded Lack of Transportation (Medical) No 03/01/2025 Lack of Transportation (Non-Medical) No 03/01/2025 Patient Unable or Declines to Respond No 03/01/2025 Education Answer Date Recorded Are you interested [...] AM EDT documented as of this encounter Last Filed Vital Signs Vital Sign Reading Time Taken Comments Blood Pressure 120/60 04/11/2025 11:42 AM EDT Pulse 68 04/11/2025 11:42 AM EDT Temperature 36.2 C (97.2 F) 04/11/2025 11:42 AM EDT Respiratory Rate 16 04/11/2025 11:42 AM EDT Oxygen Saturation 99% 04/11/2025 11:42 AM EDT Inhaled Oxygen Concentration - - Weight - - Height - - Body Mass Index - - documented in this encounter Plan of Treatment Upcoming Encounters Date Type Department Care Team (Late st Contact Info) Description 04/17/2025 12:30 AM EDT Home Care Visit [facility] [address] [place] [phone] Ade Duvall RN [address] [place] [address] 04/19/2025 12:30 AM EST Home Care Visit [facility] [address] [place] [phone] Ade Duvall RN [address] [place] [address] 04/19/2025 12:00 PM EST Home Care Visit [facility] [address] [place] [address] Jens Telles, OT [address] [place] [address] [email or web address] 04/21/2025 1:30 AM EST Home Care Visit [facility] [address] [place] [address] Ade Duvall RN [address] [place] [address] 04/21/2025 12:30 PM EST Home Care Visit [facility] [address] [place] [phone] Jens Telles, OT [address] [place] [address] [email or web address] 04/23/2025 12:30 AM EST Home Care Visit [facility] [address] [place] [phone] Ade Duvall RN [address] [place] [address] 04/25/2025 12:30 AM EST Home Care Visit [facility] [address] [place], [place] [phone] Ade Duvall RN [address] [place] [address] 04/27/2025 2:00 AM EST Appointment [facility] [address] [place] [phone] Ade Duvall RN [address] [place] [address] 04/29/2025 3:30 AM EST Home Care Visit [facility] [address] [place] [address] Ade Duvall RN [address] [place] [phone] documented as of this encounter Visit Diagnoses Not on filedocumented in this encounter Additional Health Concerns Infection Onset Date Last Indicated Resolved Time 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 11/15/2024 documented as of this encounter Home Health Visit - Care Plan Visit Details Visit Type -SN HOME VISIT Discipline -Nursing Home Problems Problem Description Start Date Status Goals Interve ntions HH - Standard of Care Disciplines: All Active Home Health Disciplines 03/01/2025 Active 1 goal linked to scheduled/document ed intervention 2 goal interventions scheduled/document ed in this visit HH - Medication Management Disciplines: All Active Home Health Disciplines 03/01/2025 Active 1 goal linked to scheduled/document ed intervention 2 goal interventions scheduled/document ed in this visit HH - Focus of Care and Teaching Disciplines: All Active Home Health Disciplines w/RD 03/01/2025 Active 1 goal linked to scheduled/document ed intervention 1 goal intervention scheduled/document ed in this visit HH - Wound Disciplines: All Active Home Health Disciplines, Nursing Home 03/01/2025 Active 1 goal linked to scheduled/document ed intervention 3 problem interventions scheduled/document ed in this visit 1 goal intervention scheduled/document ed in this visit Goals Goal Associated Problem Outcome Goal Met? Visit Notes HH - Achieve care management for a safe to home/community discharge from homecare HH - Standard of Care No HH - Safe medication management, avoid unnecessary harm related to medication errors and/or interactions HH - Medication Management No HH - Communication and collaboration to achieve patient goals HH - Focus of Care and Teaching No HH - Demonstrate/verbalize wound care management, wound/lesion will be free from complications HH - Wound No Interventions Intervention Associated Problem/Goal Status Variance Visit Notes HH - Assess vital signs, pulse oximetry, pain, and as indicated, orthostatic vital signs Description: use agency-specific parameters Problem:HH - Standard of Care Goal:HH - Achieve care management for a safe to home/community discharge from homecare Completed HH - Assess skin integrity Problem: - Standard of Care Goal:HH - Achieve care management for a safe to home/community discharge from homecare Completed HH - I/E medication management: administration, purpose, dosages, preparation, setup, scheduling, side effects, food/drug interactions, and potential complications as indicated Description: Update patient's copy of medication list as needed. Problem: - Medication Management Goal:HH - Safe medication management, avoid unnecessary harm related to medication errors and/or interactions Completed - Complete medication review every visit and medication reconciliation as indicated. Pharmacy information: Description: [facility] pharmacy. Problem: - Medication Management Goal:HH - Safe medication management, avoid unnecessary harm related to medication errors and/or interactions Completed HH - Focus of care, teaching completed and plan for next visit Problem: - Focus of Care and Teaching Goal: - Communication and collaboration to achieve patient goals Completed Primary Clinical Focus this Visit & Instruction Provided: SNV for wound care. completed per care plan. pt tolerated well. c/o 10/10 pain at visit. pt reports she needs to eat breakfast first before taking medications. no signs of infection to wound beds. I/E s/s infection and adequate protein intake to promote wound healing. no edema present. no changes in meds. lungs clear and moving bowels and urinating without issues. I/E when to seek emergent care and call the VNA. Instruction Provided to: patient Response to Instruction/Teachin g: Is partially able to teach back topics as evidenced by verbal recall. Plan for Next Visit Specific Focus & Education Needed: wound care New Orders: NA Updated Discharge Plan: when the pt has a cg willing to change dressings HH - Assess wounds/lesions/aaron Description: LOCATION: RLE wound Problem:HH - Wound Goal:HH - Demonstrate/verbalize wound care management, wound/lesion will be free from complications Completed HH - Wound care: Description: Left Lateral Foot Apply betadine daily to area/callus Problem:HH - Wound Completed HH - Wound care: Description: Wound right lateral foot - cleanse with ns or soap & water, apply silvasorb gel to wound, cover with gaue and wrap with conform, secure with tape. Change qod and prn. Problem:HH - Wound Completed HH - Wound care: Description: right anterior lower leg - cleanse with ns or soap & water, apply xeroform to wound, cover with gaue and wrap with conform, secure with tape. Change qod and prn. Problem:HH - Wound Completed documented in this encounter Care Teams Cooking Instructor Relationship Specialty Start Date End Date Maria R Sarmiento MD [address] [place] [address] [place] [phone] PCP - General Internal Medicine 11/23/24 documented as of this encounter Additional Source Comments The information contained in this document represents components of the legal health record. It is not the complete legal health record.[facility]
--- OUTSIDE RECORDS SUMMARY | 2025-04-12 09:00 | XMS_ITS | Encounter Summary ---
Author Organization [facility] Address [address] [facility] [address] [place] [address] Phone Care Team Providers Care Medical Collections Specialist Name Role Phone Maria R Sarmiento MD Primary Care Provider Reason for Visit * Auth/Cert (Routine) Specialty Diagnoses / Procedures Referred By Brian t Referred To Contact Referral ID Status Reason Start Date Expiration Date Visits Re quested Visits Authorized [id number] 1 1 Encounter Details Date Type Department Care Team (Late st Contact Info) Description 04/12/2025 9:00 AM EDT Home Care Visit [facility] [address] [place] [phone] Jens Telles, OT [address] [place] [address] [email or web address] OT HOME VISIT Social History Tobacco Use Types [...] Sign Reading Time Taken Comments Blood Pressure 138/62 04/12/2025 9:28 AM EDT Pulse 85 04/12/2025 9:28 AM EDT Temperature 36.4 C (97.5 F) 04/12/2025 9:28 AM EDT Respiratory Rate 16 04/12/2025 9:28 AM EDT Oxygen Saturation 98% 04/12/2025 9:28 AM EDT Inhaled Oxygen Concentration - - Weight - - Height - - Body Mass Index - - documented in this encounter Plan of Treatment Upcoming Encounters Date Type Department Care Team (Late st Contact Info) Description 04/17/2025 12:30 AM EDT Home Care Visit [facility] [address] [place] [phone] Ade Duvall RN [address] [place] [address] 04/19/2025 12:30 AM EST Home Care Visit [facility] [address] [place] [address] Ade Duvall RN [address] [place] [address] 04/19/2025 12:00 PM EST Home Care Visit [facility] [address] [place] [phone] Jens Telles, OT [address] [place] [address] [email or web address] 04/21/2025 1:30 AM EST Home Care Visit [facility] [address] [place] [phone] Ade Duvall RN [address] [place] [address] 04/21/2025 12:30 PM EST Home Care Visit [facility] [address] [place] [phone] Jens Telles, OT [address] [place] [address] [email or web address] 04/23/2025 12:30 AM EST Home Care Visit [facility] [address] [place] [phone] Ade Duvall, NESHA [address] [place] [address] 04/25/2025 12:30 AM EST Home Care Visit [facility] [address] [place] [address] Ade Duvall RN [address] [place] [address] 04/27/2025 2:00 AM EST Appointment [facility] [address] [place] [phone] Ade Duvall RN [address] [place] [address] 04/29/2025 3:30 AM EST Home Care Visit [facility] [address] [place] [phone] Ade Duvall RN [address] [place] [address] documented as of this encounter Visit Diagnoses Not on filedocumented in this encounter Additional Health Concerns Infection Onset Date Last Indicated Resolved Time 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 11/15/2024 documented as of this encounter Home Health Visit - Care Plan Visit Details Visit Type -OT HOME VISIT Discipline -Occupational Therapy Problems Problem Description Start Date Status Goals Interve ntions HH - Infection - Actual or Risk of Disciplines: All Active Home Health Disciplines 03/01/2025 Active 1 goal linked to scheduled/document ed intervention 1 goal intervention scheduled/document ed in this visit HH - Falls - Risk of Disciplines: All Active Home Health Disciplines 03/01/2025 Active 1 goal linked to scheduled/document ed intervention 2 goal interventions scheduled/document ed in this visit HH - Standard of Care Disciplines: All Active Home Health Disciplines 03/01/2025 Active 1 goal linked to scheduled/document ed intervention 5 goal interventions scheduled/document ed in this visit HH - Pain Disciplines: All Active Home Health Disciplines 03/01/2025 [...] Wound Disciplines: All Active Home Health Disciplines, Intermediate 03/01/2025 Active 1 goal linked to scheduled/document ed intervention 1 goal intervention scheduled/document ed in this visit HH - ADL/IADL Impairment and Therapeutic Interventions Disciplines: Occupational Therapy 03/31/2025 Active 1 goal linked to scheduled/document ed intervention 2 goal interventions scheduled/document ed in this visit Goals Goal Associated Problem Outcome Goal Met? Visit Notes HH - Patient will have no new infection; any new infection that occurs will be identified and treated promptly; existing infection will resolve without complication Description: Patient and caregiver(s) will demonstrate understanding of infection prevention, monitoring, and treatment as appropriate HH - Infection - Actual or Risk of No HH - Knowledge and management of fall prevention measures. HH - Falls - Risk of No HH - Achieve care management for a safe to home/community discharge from homecare HH - Standard of Care No HH - Frequency of pain interfering with patient's activity or movement will improve with activity or movement by discharge. Description: Pain will be managed over the course of care. Patient's acceptable level of pain is 1 - pain that doesn't interfere. HH - Pain No HH - Safe medication management, avoid unnecessary harm related to medication errors and/or interactions HH - Medication Management No HH - Communication and collaboration to achieve patient goals HH - Focus of Care and Teaching No HH - Demonstrate/verbalize wound care management, wound/lesion will be free from complications HH - Wound No HH - Promote higher level of independence with performance of ADLs/IADLs. HH - ADL/IADL Impairment and Therapeutic Interventions Progressing No Interventions Intervention Associated Problem/Goal Status Variance Visit Notes HH - Assess infection risk and s/s Problem:HH - Infection - Actual or Risk of Goal:HH - Patient will have no new infection; any new infection that occurs will be identified and treated promptly; existing infection will resolve without complication Completed - Complete fall risk assessment scale Problem: - Falls - Risk of Goal: - Knowledge and management of fall prevention measures. Completed - I/E fall prevention measures Description: diagnosis/age related changes/prior history of falls: symptoms and side effects of illness/injury/history of falls placing patient at increased risk for falls. may include management of dizziness/orthostasis, environmental hazards: modification of environment to include clear walkways, secure animals, and move frequently used items within reach, use of equipment, impaired functional mobility: supervision for mobility/activity, appropriate footwear and as indicated safe use of assistive device(s), incontinence: management of incontinence to include safe toileting, need for absorbent garments, address urgency/frequency and poly pharmacy: side effects of medications placing a patient at high risk for a fall Problem: - Falls - Risk of Goal: - Knowledge and management of fall prevention measures. Completed HH - Assess vital signs, pulse oximetry, pain, and as indicated, orthostatic vital signs Description: use agency-specific parameters Problem: - Standard of Care Goal: - Achieve care management for a safe to home/community discharge from homecare Completed - Assess skin integrity Problem: - Standard of Care Goal: - Achieve care management for a safe to home/community discharge from homecare Completed - I/E safety measures, non-fall related Description: adequate lighting, environmental safety, proper storage and disposal of medications, safe ADLs/IADLs and sharps precautions Problem: - Standard of Care Goal: - Achieve care management for a safe to home/community discharge from homecare Completed - Assess safety needs of patient (other than falls) Problem: - Standard of Care Goal:HH - Achieve care management for a safe to home/community discharge from homecare Completed - I/E discharge plan Problem: - Standard of Care Goal:HH - Achieve care management for a safe to home/community discharge from homecare Completed - Assess pain Problem: - Pain Goal:HH - Frequency of pain interfering with patient's activity or movement will improve with activity or movement by discharge. Completed - I/E pain management Problem: - Pain Goal:HH - Frequency of pain interfering with patient's activity or movement will improve with activity or movement by discharge. Completed HH - I/E medication management: administration, purpose, dosages, preparation, setup, scheduling, side effects, food/drug interactions, and potential complications as indicated Description: Update patient's copy of medication list as needed. Problem:HH - Medication Management Goal:HH - Safe medication management, avoid unnecessary harm related to medication errors and/or interactions Completed HH - Complete medication review every visit and medication reconciliation as indicated. Pharmacy information: Description: [facility] pharmacy. Problem:HH - Medication Management Goal:HH - Safe medication management, avoid unnecessary harm related to medication errors and/or interactions Completed HH - Focus of care, teaching completed and plan for next visit Problem:HH - Focus of Care and Teaching Goal:HH - Communication and collaboration to achieve patient goals Completed Primary Clinical Focus this Visit & Instruction Provided: Pt agreed to tx session, pt stated had a good night sleep but still is tired. Pt reported her urinary incontinence is better but still exist. Pt participated in the confidence program today, pt performed there-ex completed isometric adductor strengthening seated level 1x10 hold for 10 sec, obturator strengthening seated 1x10 with yellow resist band hold for 10 sec, seated heel pinches 1x10, standing plies exercise BUE support at sink Spv ww 1x10 vc/vc. pt reported partially adheres to HEP recommended to do it 2x day as instructed with handouts. Instruction Provided to: patient Response to Instruction/Teaching: Is partially able to teach back topics as evidenced by vc/tc. Plan for Next Visit Specific Focus & Education Needed: shower/dressing New Orders: n/a Updated Discharge Plan: n/a HH - Assess wounds/lesions/aaron Description: LOCATION: RLE wound Problem: - Wound Goal:HH - Demonstrate/verbalize wound care management, wound/lesion will be free from complications Completed - [facility] Confidence incontinence program Problem:HH - ADL/IADL Impairment and Therapeutic Interventions Goal:HH - Promote higher level of independence with performance of ADLs/IADLs. Completed HH - Assess ADL/IADL performance, safety, management, and durable medical equipment Description: Pt will be Mod I with shower xfer using DME/AT/LRAD as needed by 04/23/25. Pt will be Mod I with showering using DME/AT/LRAD as needed by 04/23/25. Pt will be Mod I with light meal prep using AE/AT/LRAD by 04/23/25. Pt will be Mod I with LB dressing using AE/AT/LRAD as needed by 04/23/25. Pt will be Mod I with light housekeeping task such as doing dishes by 04/23/25. pt will demo undrestanding of the confidence program to control urinary incontinence by 04/23/25. Problem:HH - ADL/IADL Impairment and Therapeutic Interventions Goal:HH - Promote higher level of independence with performance of ADLs/IADLs. Completed documented in this encounter Care Teams Medical Collections Specialist Relationship Specialty Start Date End Date Maria R Sarmiento MD [address] [place] [address] [place] [phone] PCP - General Internal Medicine 11/23/24 documented as of this encounter Additional Source Comments The information contained in this document represents components of the legal health record. It is not the complete legal health record.[facility]
--- OUTSIDE RECORDS SUMMARY | 2025-04-13 12:45 | XMS_ITS | Encounter Summary ---
Author Organization [facility] Address [address] [facility] [address] [place] [id number] Phone Care Team Providers Care Lab Associate Name Role Phone Maria R Sarmiento MD Primary Care Provider Reason for Visit * Auth/Cert (Routine) Specialty Diagnoses / Procedures Referred By Brian johansen Referred To Contact Referral ID Status Reason Start Date Expiration Date Visits Re quested Visits Authorized [id number] 1 1 Encounter Details Date Type Department Care Team (Late st Contact Info) Description 04/13/2025 12:45 PM EDT Home Care Visit [facility] [address] [place] [phone] Francie Patterson LPN [address] [place] [address] [email or web address] VISIT Social History Tobacco Use Types [...] Sign Reading Time Taken Comments Blood Pressure 136/78 04/13/2025 1:26 PM EDT Pulse 79 04/13/2025 1:26 PM EDT Temperature 36.7 C (98.1 F) 04/13/2025 1:26 PM EDT Respiratory Rate 18 04/13/2025 1:26 PM EDT Oxygen Saturation 97% 04/13/2025 1:26 PM EDT Inhaled Oxygen Concentration - - Weight - - Height - - Body Mass Index - - documented in this encounter Plan of Treatment Upcoming Encounters Date Type Department Care Team (Late st Contact Info) Description 04/17/2025 12:30 AM EDT Home Care Visit [facility] [address] [place] [phone] Ade Duvall RN [address] [place] [address] [email or web address] 04/19/2025 12:30 AM EST Home Care Visit [facility] [address] [place] [address] Ade Duvall RN [address] [place] [address] [email or web address] 04/19/2025 12:00 PM EST Home Care Visit [facility] [address] [place] [phone] Jens Telles, OT [address] [place] [address] [email or web address] 04/21/2025 1:30 AM EST Home Care Visit [facility] [address] [place] [phone] Ade Duvall RN [address] [place] [address] [email or web address] 04/21/2025 12:30 PM EST Home Care Visit [facility] [address] [place] [phone] Jens Telles, OT [address] [place] [address] [email or web address] 04/23/2025 12:30 AM EST Home Care Visit [facility] [address] [place] [phone] Ade Duvall, NESHA [address] [place] [address] [email or web address] 04/25/2025 12:30 AM EST Home Care Visit [facility] [address] [place] [phone] Ade Duvall RN [address] [place] [address] [email or web address] 04/27/2025 2:00 AM EST Appointment [facility] [address] [place] [phone] Ade Duvall RN [address] [place] [address] [email or web address] 04/29/2025 3:30 AM EST Home Care Visit [facility] [address] [place] [address] Ade Duvall RN [address] [place] [address] [email or web address] documented as of this encounter Visit Diagnoses Not on filedocumented in this encounter Additional Health Concerns Infection Onset Date Last Indicated Resolved Time 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 11/15/2024 documented as of this encounter Home Health Visit - Care Plan Visit Details Visit Type -[facility] VISIT Discipline -[facility] Problems Problem Description Start Date Status Goals Interve ntions HH - Infection - Actual or Risk of Disciplines: All Active Home Health Disciplines 03/01/2025 Active 1 goal linked to scheduled/document ed intervention HH - Standard of Care Disciplines: All Active Home Health Disciplines 03/01/2025 Active 1 goal linked to scheduled/document ed intervention 2 goal interventions scheduled/document ed in this visit HH - Pain Disciplines: All Active Home Health Disciplines 03/01/2025 Active 1 goal linked to scheduled/document ed intervention HH - Medication Management Disciplines: All Active [...] Wound Disciplines: All Active Home Health Disciplines, [facility] 03/01/2025 Active 1 goal linked to scheduled/document [...] - Infection - Actual or Risk of Progressing No HH - Achieve care management for [...] pain that doesn't interfere. HH - Pain Progressing No HH - Safe medication management, avoid unnecessary harm related to medication errors and/or interactions HH - Medication Management No HH - Communication and collaboration to achieve patient goals HH - Focus of Care and Teaching No HH - Demonstrate/verbalize wound care management, wound/lesion will be free from complications HH - Wound Progressing No Interventions Intervention Associated Problem/Goal Status Variance Visit Notes HH - Assess vital signs, pulse oximetry, pain, and as indicated, orthostatic vital signs Description: use agency-specific parameters Problem:HH - Standard of Care Goal:HH - Achieve care management for a safe to home/community discharge from homecare Completed HH - Assess skin integrity Problem:HH - Standard of Care Goal:HH - Achieve care management for a safe to home/community discharge from homecare Completed - I/E medication management: administration, purpose, dosages, preparation, setup, scheduling, side effects, food/drug interactions, and potential complications as indicated Description: Update patient's copy of medication list as needed. Problem:HH - Medication Management Goal: - Safe medication management, avoid unnecessary harm related to medication errors and/or interactions Completed HH - Complete medication review every visit and medication reconciliation as indicated. Pharmacy information: Description: [facility] pharmacy. Problem:HH - Medication Management Goal:HH - Safe medication management, avoid unnecessary harm related to medication errors and/or interactions Completed HH - Focus of care, teaching completed and plan for next visit Problem:HH - Focus of Care and Teaching Goal:HH - Communication and collaboration to achieve patient goals Completed Primary Clinical Focus this Visit & Instruction Provided: Sn visit for wound care and assessment. Pt reports poor sleep last night d/t right foot pain. Pt c/o pain to RLE/foot 11/24, managing with current pain regimen. Wound care performed, pt martín well, no s/sx infection. Bg 111, No noted or reported hyper/hypoglycemia. Pt educated on wound care, s/sx infection, diet/hydration and when to call md/911 Instruction Provided to: patient and caregiver Response to Instruction/Teaching: Is partially able to teach back topics as evidenced by verbal recall. Plan for Next Visit Specific Focus & Education Needed: wound care, pain mgmt New Orders: na Updated Discharge Plan: when patient/caregiver is independent with wound care, disease management and knowledgeable of signs/ symptoms to report to provider. HH - Assess wounds/lesions/aaron Description: LOCATION: RLE [...] Completed documented in this encounter Care Teams Lab Associate Relationship Specialty Start Date End Date Maria R Sarmiento MD [address] [place] [address] [place] [phone] PCP - General Internal Medicine 11/23/24 documented as of this encounter Additional Source Comments The information contained in this document represents components of the legal health record. It is not the complete legal health record.[facility]
--- NOTE | ~2025-04-15 | XR_ITS ---
EXAMINATION: XR SHOULDER, BILATERAL CLINICAL INFORMATION: M25.519 - Pain in unspecified shoulder COMPARISON: October 17, 2024. Correlated to chest x-ray dated January 28, 2025. TECHNIQUE: AP external rotation, Grashey, scapular Y, and axillary views of the right shoulder. FINDINGS: Degenerative changes in the acromioclavicular joints and inferior glenohumeral joints bilaterally with asymmetric joint space narrowing. No lytic or blastic lesions Osteopenia versus fibrosis. Sternal wires and vascular clips in the mediastinum and likely CABG procedure. Metallic chain/ neckless. XR/XR Shoulder Saul min 2V IMPRESSION: Degenerative changes in both shoulders Electronically signed by: Jensen Arshad MD 04/15/2025 02:48 PM EDT
--- OUTSIDE RECORDS SUMMARY | 2025-04-15 09:45 | XMS_ITS | Encounter Summary ---
Author Organization [facility] Address [address] [facility] [address] [place] [address] Phone Care Team Providers Care Doll Surgeon Name Role Phone Maria R Sarmiento MD Primary Care Provider Reason for Visit * Auth/Cert (Routine) Specialty Diagnoses / Procedures Referred By Brian johansen Referred To Contact Referral ID Status Reason Start Date Expiration Date Visits Re quested Visits Authorized [id number] 1 1 Encounter Details Date Type Department Care Team (Late st Contact Info) Description 04/15/2025 9:45 AM EDT Home Care Visit [facility] [address] [place] [address] Francie Patterson LPN [address] [place] [address] [email or web address] [facility] Social History Tobacco Use Types [...] 12:30 AM EDT Home Care Visit [facility] [address] [place] [address] Ade Duvall, NESHA [address] [place] [address] [email or web address] 04/19/2025 12:30 AM EST Home Care Visit [facility] [address] [place] [address] Ade Duvall RN [address] [place] [address] [email or web address] 04/19/2025 12:00 PM EST Home Care Visit [facility] [address] [place] [phone] BiJens Up, OT [address] [place] [address] [email or web address] 04/21/2025 1:30 AM EST Home Care Visit [facility] [address] [place] [phone] Ade Duvall, NESHA [address] [place] [address] [email or web address] 04/21/2025 12:30 PM EST Home Care Visit [facility] [address] [place] [phone] Jens Telles, OT [address] [place] [address] [email or web address] 04/23/2025 12:30 AM EST Home Care Visit [facility] [address] [place] [address] Ade Duvall, NESHA [address] [place] [address] [email or web address] 04/25/2025 12:30 AM EST Home Care Visit [facility] [address] [place], [place] [phone] Ade Duvall RN [address] [place] [address] [email or web address] 04/27/2025 2:00 AM EST Appointment [facility] [address] [place], [place] [phone] Ade Duvall RN [address] [place] [address] [email or web address] 04/29/2025 3:30 AM EST Home Care Visit [facility] [address] [place], [place] [phone] Ade Duvall RN [address] [place] [address] documented as of this encounter Visit Diagnoses Not on filedocumented in this encounter Additional Health Concerns Infection Onset Date Last Indicated Resolved Time 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 11/15/2024 documented as of this encounter Home Health Visit - Care Plan Visit Details Visit Type -[facility] VIS[facility] Discipline -Long-Term Problems Problem Description Start Date Status Goals [...] Wound Disciplines: All Active Home Health Disciplines, Long-Term 03/01/2025 Active 1 goal linked to scheduled/document [...] agency-specific parameters Problem: - Standard of Care Goal:HH - Achieve care management for a safe to home/community discharge from homecare Scheduled HH - Assess skin integrity Problem: - Standard of Care Goal:HH - Achieve care management for a safe to home/community discharge from homecare Scheduled HH - I/E medication management: administration, purpose, dosages, preparation, setup, scheduling, side effects, food/drug interactions, and potential complications as indicated Description: Update patient's copy of medication list as needed. Problem: - Medication Management Goal:HH - Safe medication management, avoid unnecessary harm related to medication errors and/or interactions Scheduled - Complete medication review every visit and medication reconciliation as indicated. Pharmacy information: Description: [facility] pharmacy. Problem: - Medication Management Goal:HH - Safe medication management, avoid unnecessary harm related to medication errors and/or interactions Scheduled - Focus of care, teaching completed and plan for next visit Problem: - Focus of Care and Teaching Goal: - Communication and collaboration to achieve patient goals Scheduled HH - Assess wounds/lesions/aaron Description: LOCATION: RLE wound Problem:HH - Wound Goal: - Demonstrate/verbalize wound care management, wound/lesion will be free from complications Scheduled HH - Wound care: Description: Left Lateral Foot Apply betadine daily to area/callus Problem:HH - Wound Scheduled HH - Wound care: Description: Wound right lateral foot - cleanse with ns or soap & water, apply silvasorb gel to wound, cover with gaue and wrap with conform, secure with tape. Change qod and prn. Problem:HH - Wound Scheduled HH - Wound care: Description: right anterior lower leg - cleanse with ns or soap & water, apply xeroform to wound, cover with gaue and wrap with conform, secure with tape. Change qod and prn. Problem:HH - Wound Scheduled documented in this encounter Care Teams Doll Surgeon Relationship Specialty Start Date End Date Maria R Sarmiento MD [address] [place] [address] [place] [phone] PCP - General Internal Medicine 11/23/24 documented as of this encounter Additional Source Comments The information contained in this document represents components of the legal health record. It is not the complete legal health record.[facility]
--- OUTSIDE RECORDS SUMMARY | 2025-04-15 13:30 | XMS_ITS | Encounter Summary ---
Author Organization [facility] Address [address] [facility] [address] [place] [address] Phone Care Team Providers Care Electrical Tester Battery Name Role Phone Maria R Sarmiento MD Primary Care Provider Reason for Visit * Auth/Cert (Routine) Specialty Diagnoses / Procedures Referred By Brian t Referred To Contact Referral ID Status Reason Start Date Expiration Date Visits Re quested Visits Authorized [id number] 1 1 Encounter Details Date Type Department Care Team (Late st Contact Info) Description 04/15/2025 1:30 PM EDT Home Care Visit [facility] [address] [place] [address] Jens Telles, OT [address] [place] [address] [email or web address] HOME VISIT Social History Tobacco [...] 12:30 AM EDT Home Care Visit [facility] [address] [place] [address] Ade Duvall, NESHA [address] [place] [address] 04/19/2025 12:30 AM EST Home Care Visit [facility] [address] [place] [address] Ade Duvall RN [address] [place] [address] 04/19/2025 12:00 PM EST Home Care Visit [facility] [address] [place] [address] BiJens Up, OT [address] [place] [address] [email or web address] 04/21/2025 1:30 AM EST Home Care Visit [facility] [address] [place] [address] Ade Duvall RN [address] [place] [address] 04/21/2025 12:30 PM EST Home Care Visit [facility] [address] [place] [phone] Jens Telles, OT [address] [place] [address] [email or web address] 04/23/2025 12:30 AM EST Home Care Visit [facility] [address] [place] [address] Ade Duvall RN [address] [place] [address] 04/25/2025 12:30 AM EST Home Care Visit [facility] [address] [place], [place] [phone] Ade Duvall RN [address] [place] [address] 04/27/2025 2:00 AM EST Appointment [facility] [address] [place], [place] [phone] Ade Duvall RN [address] [place] [address] [email or web address] 04/29/2025 3:30 AM EST Home Care Visit [facility] [address] [place], [place] [phone] Ade Duvall RN [address] [place] [address] documented as of this encounter Visit Diagnoses [...] Wound Disciplines: All Active Home Health Disciplines, Group Home 03/01/2025 Active 1 goal linked to [...] medication reconciliation as indicated. Pharmacy information: Description: [facility] pharmacy. Problem: - Medication Management Goal: - Safe medication management, avoid unnecessary harm related to medication errors and/or interactions Scheduled - Focus of care, teaching completed and plan for next visit Problem: - Focus of Care and Teaching Goal: - Communication and collaboration to achieve patient goals Scheduled HH - Assess wounds/lesions/aaron Description: LOCATION: RLE wound Problem: - Wound Goal: - Demonstrate/verbalize wound care management, wound/lesion will be free from complications Scheduled documented in this encounter Care Teams Electrical Tester Battery Relationship Specialty Start Date End Date Maria R Sarmiento MD [address] [place] [address] [place] [phone] PCP - General Internal Medicine 11/23/24 documented as of this encounter Additional Source Comments The information contained in this document represents components of the legal health record. It is not the complete legal health record.[facility]
--- OUTSIDE RECORDS SUMMARY | 2025-04-15 14:52 | XMS_ITS | Encounter Summary ---
Author Organization [facility] Address [address] [facility] [place] [facility] [address] [place] [address] Phone Care Team Providers Care Logistics Vice President Name Role Phone Kelsey Tamayo MD Primary Care Provider [phone] Maria R Sarmiento MD Primary Care Provider Encounter Details Date Type Department Care Team (Late st Contact Info) Description 11/01/2024 Procedure Pass [facility] [address] [place] [address] Social History Tobacco Use Types Packs/Day Years [...] have you moved in the past 12 sat ths? Unable to assess 11/02/2024 Paying for [...] 12:30 AM EDT Home Care Visit [facility] [address] [place], [place] [phone] Ade Duvall RN [address] [place] [address] 04/19/2025 12:30 AM EST Home Care Visit [facility] [address] [place], [place] [phone] Ade Duvall RN [address] [place] [address] 04/19/2025 12:00 PM EST Home Care Visit [facility] [address] [place] [phone] Alizapoppy Garzajin Jens, OT [address] [place] [address] [email or web address] 04/21/2025 1:30 AM EST Home Care Visit [facility] [address] [place] [phone] Ade Duvall RN [address] [place] [address] 04/21/2025 12:30 PM EST Home Care Visit [facility] [address] [place] [phone] BiJens Up, OT [address] [place] [address] [email or web address] 04/23/2025 12:30 AM EST Home Care Visit [facility] [address] [place] [phone] Ade Duvall, NESHA [address] [place] [address] 04/25/2025 12:30 AM EST Home Care Visit [facility] [address] [place] [phone] Ade Duvall, NESHA [address] [place] [address] 04/27/2025 2:00 AM EST Appointment [facility] [address] [place] [phone] Ade Duvall, NESHA [address] [place] [address] 04/29/2025 3:30 AM EST Home Care Visit [facility] [address] [place] [phone] Ade Duvall RN [address] [place] [address] documented as of this encounter Visit Diagnoses Not on filedocumented in this encounter Additional Health Concerns Infection Onset Date Last Indicated Resolved Time 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 11/15/2024 documented as of this encounter Care Teams Logistics Vice President Relationship Specialty Start Date End Date Kelsey Tamayo MD [address] [place] [address] [email or web address] PCP - General Internal Medicine 10/31/24 11/22/24 Maria R Sarimento MD [address] [place] [address] [place] [phone] PCP - General Internal Medicine 11/23/24 documented as of this encounter Additional Source Comments The information contained in this document represents components of the legal health record. It is not the complete legal health record.[facility]
--- OUTSIDE RECORDS SUMMARY | 2025-04-15 14:52 | XMS_ITS | Encounter Summary ---
Author Organization [facility] Address [address] [place] [address] Phone Care Team Providers Care Scoreboard Operator Name Role Phone Maria R Sarmiento MD Primary Care Provider Encounter Details Date Type Department Care Team (Late st Contact Info) Description 04/12/2025 Episode Documentatio n Update [facility] [address] [place], [place] [phone] [email or web address] Social History Tobacco Use Types Packs/Day Years [...] 04/17/2025 12:30 AM EDT Home Care Visit [facility] [address] [place] [phone] Ade Duvall, NESHA [address] [place] [address] 04/19/2025 12:30 AM EST Home Care Visit [facility] [address] [place] [address] Ade Duvall RN [address] [place] [address] 04/19/2025 12:00 PM EST Home Care Visit [facility] [address] [place] [phone] Jens Telles, OT [address] [place] [address] [email or web address] 04/21/2025 1:30 AM EST Home Care Visit [facility] [address] [place] [phone] Ade Duvall RN [address] [place] [address] 04/21/2025 12:30 PM EST Home Care Visit [facility] [address] [place] [phone] BiJens Up, OT [address] [place] [address] [email or web address] 04/23/2025 12:30 AM EST Home Care Visit [facility] [address] [place] [address] Ade Duvall, NESHA [address] [place] [address] 04/25/2025 12:30 AM EST Home Care Visit [facility] [address] [place] [phone] Ade Duvall, NESHA [address] [place] [address] 04/27/2025 2:00 AM EST Appointment [facility] [address] [place] [phone] Ade Duvall RN [address] [place] [address] 04/29/2025 3:30 AM EST Home Care Visit [facility] [address] [place] [phone] Ade Duvall RN [address] [place] [address] documented as of this encounter Visit Diagnoses Not on filedocumented in this encounter Additional Health Concerns Infection Onset Date Last Indicated Resolved Time 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 11/15/2024 documented as of this encounter Care Teams Scoreboard Operator Relationship Specialty Start Date End Date Maria R Sarmiento MD [address] [place] [address] [place] [phone] PCP - General Internal Medicine 11/23/24 documented as of this encounter Additional Source Comments The information contained in this document represents components of the legal health record. It is not the complete legal health record.[facility]
--- OUTSIDE RECORDS SUMMARY | 2025-04-15 14:52 | XMS_ITS | Encounter Summary ---
Author Organization [facility] Address [address] [place] [address] Phone Care Team Providers Care Fleet Maintenance Manager Name Role Phone Kelsey Tamayo MD Primary Care Provider [phone] Maria R Sarmiento MD Primary Care Provider Encounter Details Date Type Department Care Team (Late st Contact Info) Description 11/17/2024 Procedure Pass [facility], Ct Scan - [address] [address] Social History Tobacco Use Types Packs/Day Years [...] 6:00 PM EDT Kizzy Fang RN * [place] Suicide Severity Rating Scale (Screener/Recent Self-Report) Question Answer Date of Assessment Author 1. Wish to be (Past 1 Month) No 025 6:00 PM EDT Kizzy Fang, NESHA 2. Non-Specific Active Suici kati Thoughts (Past 1 Month) No 11/17/2024 6:00 PM EDT Kizzy Fang , NESHA 6. Suicidal Behavior (Lifetime) No 6:00 PM EDT Kizzy Fang RN documented as of this encounter Plan of Treatment Upcoming Encounters Date Type Department Care Team (Late st Contact Info) Description 04/17/2025 12:30 AM EDT Home Care Visit [facility] [address] [place] [phone] Ade Duvall, NESHA [address] [place] [address] 04/19/2025 12:30 AM EST Home Care Visit [facility] [address] [place] [phone] Ade Duvall RN [address] [place] [address] 04/19/2025 12:00 PM EST Home Care Visit [facility] [address] [place] [phone] Jens Telles, OT [address] [place] [address] [email or web address] 04/21/2025 1:30 AM EST Home Care Visit [facility] [address] [place] [phone] Ade Duvall RN [address] [place] [address] 04/21/2025 12:30 PM EST Home Care Visit [facility] [address] [place] [phone] Jens Telles, OT [address] [place] [address] [email or web address] 04/23/2025 12:30 AM EST Home Care Visit [facility] [address] [place] [phone] Ade Duvall RN [address] [place] [address] 04/25/2025 12:30 AM EST Home Care Visit [facility] [address] [place] [phone] Ade Duvall RN [address] [place] [address] 04/27/2025 2:00 AM EST Appointment [facility] [address] [place] [address] Ade Duvall RN [address] [place] [address] 04/29/2025 3:30 AM EST Home Care Visit [facility] [address] [place] [phone] Ade Duvall RN [address] [place] [address] documented as of this encounter Visit Diagnoses Not on filedocumented in this encounter Additional Health Concerns Infection Onset Date Last Indicated Resolved Time 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 11/15/2024 documented as of this encounter Care Teams Fleet Maintenance Manager Relationship Specialty Start Date End Date Kelsey Tamayo MD [address] [place] [address] PCP - General Internal Medicine 10/31/24 11/22/24 Maria R Sarmiento MD [address] [place] [address] [place] [phone] PCP - General Internal Medicine 11/23/24 documented as of this encounter Additional Source Comments The information contained in this document represents components of the legal health record. It is not the complete legal health record.[facility]
--- OUTSIDE RECORDS SUMMARY | 2025-04-15 14:52 | XMS_ITS | Encounter Summary ---
Author Organization [facility] Address [address] [place] [address] Phone Care Team Providers Care Decorating Equipment Setter Name Role Phone Kelsey Tamayo MD Primary Care Provider [phone] Maria R Sarmiento MD Primary Care Provider Encounter Details Date Type Department Care Team (Late st Contact Info) Description 10/31/2024 Procedure Pass [facility], Ct Scan - [address] [address] Social History Tobacco Use Types Packs/Day Years [...] 7:00 PM EDT Kirstin Pearson RN * [place] Suicide Severity Rating Scale (Screener/Recent Self-Report) Question [...] 12:30 AM EDT Home Care Visit [facility] [address] [place] [phone] Ade Duvall RN [address] [place] [address] 04/19/2025 12:30 AM EST Home Care Visit [facility] [address] [place] [phone] Ade Duvall RN [address] [place] [address] 04/19/2025 12:00 PM EST Home Care Visit [facility] [address] [place] [phone] Jens Telles, OT [address] [place] [address] [email or web address] 04/21/2025 1:30 AM EST Home Care Visit [facility] [address] [place] [phone] Ade Duvall RN [address] [place] [address] 04/21/2025 12:30 PM EST Home Care Visit [facility] [address] [place] [phone] Jens Telles, OT [address] [place] [address] [email or web address] 04/23/2025 12:30 AM EST Home Care Visit [facility] [address] [place] [phone] Ade Duvall RN [address] [place] [address] 04/25/2025 12:30 AM EST Home Care [facility] [address] [place] [address] Ade Duvall RN [address] [place] [address] 04/27/2025 2:00 AM EST Appointment [facility] [address] [place] [address] Ade Duvall RN [address] [place] [address] 04/29/2025 3:30 AM EST Home Care [facility] [address] [place] [address] Ade Duvall RN [address] [place] [address] documented as of this encounter Visit Diagnoses Not on filedocumented in this encounter Additional Health Concerns Infection Onset Date Last Indicated Resolved Time 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 11/15/2024 documented as of this encounter Care Teams Decorating Equipment Setter Relationship Specialty Start Date End Date Kelsey Tamayo MD [address] [place] [address] PCP - General Internal Medicine 10/31/24 11/22/24 Maria R Sarmiento MD [address] [place] [address] [place] [phone] PCP - General Internal Medicine 11/23/24 documented as of this encounter Additional Source Comments The information contained in this document represents components of the legal health record. It is not the complete legal health record.[facility]
--- OUTSIDE RECORDS SUMMARY | 2025-04-15 14:52 | XMS_ITS | Encounter Summary ---
Author Organization [facility] Address [address] [place] [address] Phone Care Team Providers Care Supervisor Dental Laboratory Name Role Phone Kelsey Tamayo MD Primary Care Provider [phone] Maria R Sarmiento MD Primary Care Provider Encounter Details Date Type Department Care Team (Late st Contact Info) Description 11/03/2024 Procedure Pass [facility] [address] [place] [address] Social History Tobacco Use Types Packs/Day Years [...] Visit [facility] [address] [place], [place] [phone] Ade Duvall RN [address] [place] [address] [email or web address] 04/19/2025 12:30 AM EST Home Care Visit [facility] [address] [place], [place] [phone] Ade Duvall RN [address] [place] [address] [email or web address] 04/19/2025 12:00 PM EST Home Care Visit [facility] [address] [place] [address] Ivy Arteagadrakejin Jens, OT [address] [place] [address] [email or web address] 04/21/2025 1:30 AM EST Home Care Visit [facility] [address] [place] [address] Ade Duvall, NESHA [address] [place] [address] [email or web address] 04/21/2025 12:30 PM EST Home Care Visit [facility] [address] [place] [phone] DarienJens Up, OT [address] [place] [address] [email or web address] 04/23/2025 12:30 AM EST Home Care Visit [facility] [address] [place] [phone] Ade Duvall, RN [address] [place] [address] [email or web address] 04/25/2025 12:30 AM EST Home Care Visit [facility] [address] [place] [address] Ade Duvall, NESHA [address] [place] [address] [email or web address] 04/27/2025 2:00 AM EST Appointment [facility] [address] [place] [address] Ade Duvall, NESHA [address] [place] [address] 04/29/2025 3:30 AM EST Home Care Visit [facility] [address] [place] [phone] Ade Duvall RN [address] [place] [address] [email or web address] documented as of this encounter Visit Diagnoses Not on filedocumented in this encounter Additional Health Concerns Infection Onset Date Last Indicated Resolved Time 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 11/15/2024 documented as of this encounter Care Teams Supervisor Dental Laboratory Relationship Specialty Start Date End Date Kelsey Tamayo MD [address] [place] [address] [email or web address] PCP - General Internal Medicine 10/31/24 11/22/24 Maria R Sarmiento MD [address] [place] [address] [place] [address] PCP - General Internal Medicine 11/23/24 documented as of this encounter Additional Source Comments The information contained in this document represents components of the legal health record. It is not the complete legal health record.[facility]
--- OUTSIDE RECORDS SUMMARY | 2025-04-15 14:52 | XMS_ITS | Encounter Summary ---
Author Organization [facility] Address [address] [place] [address] Phone Care Team Providers Care Handicraft Or Hobby Shop Manager Name Role Phone Kelsey Tmaayo MD Primary Care Provider [phone] Maria R Sarmiento MD Primary Care Provider Encounter Details Date Type Department Care Team (Late st Contact Info) Description 11/05/2024 Procedure Pass [facility]-In[facility] Cardiology [address] [place] [address] Social History Tobacco Use Types Packs/Day Years [...] 12:30 AM EDT Home Care Visit [facility] [address] [place], [place] [phone] Ade Duvall RN [address] [place] [address] 04/19/2025 12:30 AM EST Home Care Visit [facility] [address] [place], [place] [phone] Ade Duvall RN [address] [place] [address] [email or web address] 04/19/2025 12:00 PM EST Home Care Visit [facility] [address] [place] [address] Ivy KaylajinCliffordsher, OT [address] [place] [address] [email or web address] 04/21/2025 1:30 AM EST Home Care Visit [facility] [address] [place] [address] Ade Duvall, NESHA [address] [place] [address] [email or web address] 04/21/2025 12:30 PM EST Home Care Visit [facility] [address] [place] [phone] DarienJens Up, OT [address] [place] [address] [email or web address] 04/23/2025 12:30 AM EST Home Care Visit [facility] [address] [place] [phone] Ade Duvall, RN [address] [place] [address] [email or web address] 04/25/2025 12:30 AM EST Home Care Visit [facility] [address] [place] [phone] Ade Duvall, RN [address] [place] [address] [email or web address] 04/27/2025 2:00 AM EST Appointment [facility] [address] [place] [address] Ade Duvall, NESHA [address] [place] [address] 04/29/2025 3:30 AM EST Home Care Visit [facility] [address] [place] [address] Ade Duvall RN [address] [place] [address] documented as of this encounter Visit Diagnoses Not on filedocumented in this encounter Additional Health Concerns Infection Onset Date Last Indicated Resolved Time 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 11/15/2024 documented as of this encounter Care Teams Handicraft Or Hobby Shop Manager Relationship Specialty Start Date End Date Kelsey Tamayo MD [address] [place] [address] PCP - General Internal Medicine 10/31/24 11/22/24 Maria R Sarmiento MD [address] [place] [address] [place] [address] PCP - General Internal Medicine 11/23/24 documented as of this encounter Additional Source Comments The information contained in this document represents components of the legal health record. It is not the complete legal health record.[facility]
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
--- OUTSIDE RECORDS SUMMARY | 2025-04-15 14:52 | XMS_ITS | Encounter Summary ---
Author Organization [facility] Address [address] [place] [address] Phone Care Team Providers Care Donor Center Technician Name Role Phone Kelsey Tamayo MD Primary Care Provider [phone] Maria R Sarmiento MD Primary Care Provider Encounter Details Date Type Department Care Team (Late st Contact Info) Description 10/31/2024 Procedure Pass [facility], Ct Scan - [address] [address] Social History Tobacco Use Types Packs/Day Years [...] 7:00 PM EDT Kirstin Pearson RN * [place] Suicide Severity Rating Scale (Screener/Recent Self-Report) Question [...] 12:30 AM EDT Home Care Visit [facility] [address] [place] [phone] Ade Duvall RN [address] [place] [address] 04/19/2025 12:30 AM EST Home Care Visit [facility] [address] [place] [phone] Ade Duvall RN [address] [place] [address] 04/19/2025 12:00 PM EST Home Care Visit [facility] [address] [place] [phone] Jens Telles, OT [address] [place] [address] [email or web address] 04/21/2025 1:30 AM EST Home Care Visit [facility] [address] [place] [phone] Ade Duvall RN [address] [place] [address] 04/21/2025 12:30 PM EST Home Care Visit [facility] [address] [place] [phone] Jens Telles, OT [address] [place] [address] [email or web address] 04/23/2025 12:30 AM EST Home Care Visit [facility] [address] [place] [phone] Ade Duvall RN [address] [place] [address] 04/25/2025 12:30 AM EST Home Care Visit [facility] [address] [place] [address] Ade Duvall RN [address] [place] [address] 04/27/2025 2:00 AM EST Appointment [facility] [address] [place] [address] Ade Duvall RN [address] [place] [address] 04/29/2025 3:30 AM EST Home Care Visit [facility] [address] [place] [address] Ade Duvall RN [address] [place] [address] documented as of this encounter Visit Diagnoses Not on filedocumented in this encounter Additional Health Concerns Infection Onset Date Last Indicated Resolved Time 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 It is not the complete legal health record.[facility]
--- OUTSIDE RECORDS SUMMARY | 2025-04-15 14:53 | XMS_ITS | Encounter Summary ---
Author Organization [facility] Address [address] [place] [address] Phone Care Team Providers Care National Guard Member Name Role Phone Kelsey Tamayo MD Primary Care Provider [phone] Maria R Sarmiento MD Primary Care Provider Encounter Details Date Type Department Care Team (Late st Contact Info) Description 11/21/2024 Procedure Pass [facility] Imaging - Peripoerative Interventional Radiology [address] [place] [address] Social History Tobacco Use Types Packs/Day Years [...] 12:30 AM EDT Home Care Visit [facility] [address] [place], [place] [phone] Ade Duvall RN [address] [place] [address] 04/19/2025 12:30 AM EST Home Care Visit [facility] [address] [place], [place] [phone] Ade Duvall RN [address] [place] [address] [email or web address] 04/19/2025 12:00 PM EST Home Care Visit [facility] [address] [place] [phone] BiJens Up, OT [address] [place] [address] [email or web address] 04/21/2025 1:30 AM EST Home Care Visit [facility] [address] [place] [phone] Ade Duvall, NESHA [address] [place] [address] [email or web address] 04/21/2025 12:30 PM EST Home Care Visit [facility] [address] [place] [phone] BiJens Up, OT [address] [place] [address] [email or web address] 04/23/2025 12:30 AM EST Home Care Visit [facility] [address] [place] [phone] Ade Duvall, NESHA [address] [place] [address] 04/25/2025 12:30 AM EST Home Care Visit [facility] [address] [place] [phone] Ade Duvall, NESHA [address] [place] [address] 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 It is not the complete legal health record.[facility]
--- OUTSIDE RECORDS SUMMARY | 2025-04-15 14:53 | XMS_ITS | Clinical Summary ---
Author Organization [employer] Address [address] [place] [address] 7t [place] [address] Care Team Providers Care Incident Engineer Name Role Phone Unavailable Primary Care Provider [...]
--- OUTSIDE RECORDS SUMMARY | 2025-04-15 14:53 | XMS_ITS | Encounter Summary ---
Author Organization [employer] Address [address] [facility] 7t [place] [address] Care Team Providers Care Pressure Control Supervisor Name Role Phone Unavailable Primary Care [...]
--- OUTSIDE RECORDS SUMMARY | 2025-04-15 14:53 | XMS_ITS | Encounter Summary ---
Author Organization [facility] Address [address] [place] [address] Phone Care Team Providers Care 3Rd Grade Reading Teacher Name Role Phone Kelsey Tamayo MD Primary Care Provider Maria R Sarmiento MD Primary Care Provider Encounter Details Date Type Department Care Team (Late st Contact Info) Description 11/21/2024 Procedure Pass [facility] PERIOPER[facility]IVE DEPT [address] [place] [phone] Social History Tobacco Use Types Packs/Day Years [...] Visit [facility] [address] [place], [place] [phone] Ade Duvall RN [address] [place] [address] [email or web address] 04/19/2025 12:30 AM EST Home Care Visit [facility] [address] [place], [place] [phone] Ade Duvall RN [address] [place] [address] [email or web address] 04/19/2025 12:00 PM EST Home Care Visit [facility] [address] [place] [address] Ivy Arteagadrakejin Jens, OT [address] [place] [address] [email or web address] 04/21/2025 1:30 AM EST Home Care Visit [facility] [address] [place] [address] Ade Duvall, NESHA [address] [place] [address] [email or web address] 04/21/2025 12:30 PM EST Home Care Visit [facility] [address] [place] [phone] DarienJens Up, OT [address] [place] [address] [email or web address] 04/23/2025 12:30 AM EST Home Care Visit [facility] [address] [place] [phone] Ade Duvall, RN [address] [place] [address] [email or web address] 04/25/2025 12:30 AM EST Home Care Visit [facility] [address] [place] [address] Ade Duvall, NESHA [address] [place] [address] [email or web address] 04/27/2025 2:00 AM EST Appointment [facility] [address] [place] [address] Ade Duvall, NESHA [address] [place] [address] 04/29/2025 3:30 AM EST Home Care Visit [facility] [address] [place] [phone] Ade Duvall RN [address] [place] [address] [email or web address] documented as of this encounter Visit Diagnoses Not on filedocumented in this encounter Additional Health Concerns Infection Onset Date Last Indicated Resolved Time 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 It is not the complete legal health record.[facility]
--- OUTSIDE RECORDS SUMMARY | 2025-04-15 14:53 | XMS_ITS | Patient Health Record ---
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) Active confirmed Plan Of Treatment No Information Insurance Providers Payer Name Payer Address Payer Phone Subscriber Number Group Number Insured Name Patient Relationship to Insured Coverage Start Date Coverage End Date [employer] [address] [address] [place] [phone] [id number] Vee Parisi Self - patient is the insured Medical (General) History Medical History History ICD Code Gastroesphageal Reflux Anxiety Disorder Other sleep issue Heart Disease Depression Coronary Artery Disease High Blood pressure Peripheral Arterial Disease High Cholesterol Heart Problems Back pain Heart Attack (CT) Allergies Surgical History Surgery Date(Month/Year) Cardiac Catheterization 07/2016 Peripheral Artery intervention 01/2018 Cardiac Catheterization 01/2016 Cardiac Catheterization 12/2015 Cardiac Catheterization 06/2015 Vascular surgery 03/2015 Stent Placement Breast Surgery Carpal Tunnel Surgery Heart Surgery
--- OUTSIDE RECORDS SUMMARY | 2025-04-15 14:53 | XMS_ITS | Clinical Summary ---
Author Organization [facility] Address [address] [facility] [address] [place] [phone] Phone Care Team Providers Care Entry Engineer Name Role Phone Maria R Sarmiento MD Primary Care Provider Allergies Active Allergy Reactions Criticality Noted Date Comments Amoxicillin 10/31/2024 Hathaway Flavor 10/31/2024 Nut Flavor 10/31/2024 Oxycodone 10/31/2024 Red Blood Cells Other (See Comments) 11/21/2024 Patient is a Tenriism, refuses blood products Tramadol Itching,Other (See Comments) [...] allergies. Active HYDROmorphone (DILAUDID) 2 MG tablet [The details of the medication are not available because there are pending changes by a home health clinician.] 20 tablet Active Additional Information Patient not taking.Informant: Self, Reported on 03/10/2025 acetaminophen (TYLENOL) 325 mg tablet [The details of the medication are not available because there are pending changes by a home health clinician.] Active Additional Information Patient not taking.Reason: Other, Reported on 03/01/2025 aspirin 81 mg chewable tablet [The details [...] health clinician.] 5 Active Additional Information Patient taking differently: 20 mgOral Daily, Reason: Other, Reported on 03/01/2025 ranolazine (RANEXA) 1,000 mg SR tablet [The [...] Active gabapentin (NEURONTIN) 100 MG capsule Take 400 mg by mouth 3 (three) times a [...] 2 (two) times a day. 5 Active acetaminophen (TYLENOL) 500 MG tablet Take 1,000 mg by mouth every 6 (six) hours as needed for fever or pain (specific location in comments). 5 Active rivaroxaban (XARELTO) 20 mg Tab Take 2.5 mg by mouth 2 (two) times a day (once in the morning and once in the afternoon). 5 Active ascorbic acid, vitamin C, (VITAMIN C) 500 MG tablet Take 500 mg by mouth 2 (two) times a day. Active cyanocobalamin, vitamin B-12, 1000 MCG tablet Take 100 mcg by mouth daily. Active insulin aspart U-100 (NOVOLOG) 100 unit/mL injection vial Inject 1 Units under the skin 4 (four) times a day as needed for high blood sugar (Per sliding scale). Active Active Problems Problem Noted Date Diagnosed Date Ischemic leg 11/17/2024 PAD (peripheral artery disease) 11/17/2024 Syncope 11/03/2024 Assessment & Plan (11/05/2024 12:10 AM EDT): Patient had syncopized causing her ankle fracture Patient repeatedly removed tele monitor iso confusion, could consider fabricator special items on dc TTE EF 60%, mild TR. Assessment & Plan (11/03/2024 10:30 AM EDT): Patient's PCP at [facility] reports that at [facility] the patient had actually syncopized causing her ankle fracture She was stable on the fabricator special items I will replace it if she is [...] were restarted when she was seen at [facility] and transferred to [facility]. She was also given tramadol and together these may have contributed to serotonin syndrome. On presentation she had jerking movements altered mental status, hypertension, clonus and hyperreflexia. [facility] [place] felt that her presentation was consistent [...] were restarted when she was seen at [facility] and transferred to [facility]. She was also given tramadol and [...] not renewed, she had been in [place]. She has not picked these medications up at all in [place] and they were limited prescriptions for 30 days When she was at [facility] she listed these meds as chronic and they were restarted at the [facility] along with tramadol Given her altered mental status jerking movements and hypertension there is concern for serotonin syndrome. Her last dose of Cymbalta was yesterday afternoon last gabapentin was at [facility]. She has gotten no tramadol here [...] gotten a prescription for it in [place] in July. We will stop this completely as this may be causing some of her symptoms in combination with ultram, some possible serotonergic effects. She is not having any tachycardia or sustained hypertension, no dilation of the pupils or diaphoresis Assessment & Plan (10/31/2024 6:07 PM EDT): Patient presents today with altered mental status, sent in from [facility], found to be twitching although no tonic-clonic seizure activity was visualized. Apparently had difficulty with pain last night and received all of her as needed's. There was some concern over patient being narcotize and she did respond to Narcan although became confused again after 90 minutes. Looking at the custodial MAR, she was on Ultram which she has [...] infection on exam Plan Monitor neurologic status log sawyer Continuous O2 sat monitor EEG Follow labs [...] -she had listed as a medication from [facility] but was likely an error as she [...] Encounters Date Type Department Care Team Description 04/15/2025 1:30 PM EDT Home Care Visit [facility] [address] [place], [place] [phone] Jens Telles OT OT HOME VISIT 04/15/2025 9:45 AM EDT Home Care Visit [facility] [address] [place] [phone] Francie Patterson LPN LPN HOME VISIT 04/13/2025 12:45 PM EDT [facility] Visit [facility] [address] [place] [phone] Francie Patterson LPN LPN HOME VISIT 04/12/2025 9:00 AM EDT Home Care Visit [facility] [address] [place], [place] [phone] Jens Telles, OT OT HOME VISIT 04/12/2025 Episode Documentation Update [facility] [address] [place], [place] [phone] Nata Fournier 04/11/2025 11:45 AM EDT Home Care Visit [facility] [address] [place], [place] [phone] Ade Duvall, NESHA SN HOME VISIT 04/09/2025 2:30 PM EDT Home Care Visit [facility] [address] [place], [place] [phone] Catherine Clemons, RN SN HOME VISIT 04/08/2025 10:15 AM EDT Home Care Visit [facility] [address] [place], [place] [phone] Lizzie Guzman, PT PT DISCIPLINE DISCHARGE VISIT 04/07/2025 10:00 AM EDT Home Care Visit [facility] [address] [place], [place] [phone] Jens Telles, OT OT HOME VISIT 04/07/2025 Home Care Visit [facility] [address] [place], [place] [phone] Chantell Pride, RN CASE COMMUNICATION 04/06/2025 11:15 AM EDT Home Care Visit [facility] [address] [place], [place] [phone] Francie Patterson LPN LPN HOME VISIT 04/06/2025 9:00 AM EDT Home Care Visit [facility] [address] [place], [place] [phone] Jens Telles, OT OT HOME VISIT 04/05/2025 12:15 PM EDT Home Care Visit [facility] [address] [place], [place] [phone] Lizzie Guzman, PT PT HOME VISIT 04/05/2025 10:30 AM EDT Home Care Visit [facility] [address] [place] [address] Francie Patterson, HALAL MEAT PACKER HALAL MEAT PACKER HOME VISIT 04/04/2025 11:30 AM EDT Home Care Visit [facility] [address] [place] [address] SandeeTimmy villaene, HALAL MEAT PACKER HALAL MEAT PACKER HOME VISIT 04/03/2025 9:30 AM EDT Home Care Visit [facility] [address] [place] [address] SandeeEulalio villa, HALAL MEAT PACKER HALAL MEAT PACKER HOME VISIT 04/02/2025 11:15 AM EDT Home Care Visit [facility] [address] [place] [address] Denilson Pattersona, HALAL MEAT PACKER HALAL MEAT PACKER HOME VISIT 04/02/2025 Home Care Visit [facility] [address] [place] [address] Ade Duvall, RN CASE COMMUNICATION 04/01/2025 12:15 PM EDT Home Care Visit [facility] [address] [place] [address] Lizzie Guzman, PT PT HOME VISIT 03/31/2025 12:30 PM EDT Home Care Visit [facility] [address] [place] [address] Jens Telles, OT OT EVALUATION 03/31/2025 10:45 AM EDT Home Care Visit [facility] [address] [place] [address] Lizzie Guzman, PT PT HOME VISIT 03/30/2025 Home Care Visit [facility] [address] [place], [place] [phone] Jens Telles, OT TELEPHONE ENCOUNTER 03/27/2025 12:45 PM EDT Home Care Visit [facility] [address] [place], [place] [phone] Francie Patterson LPN HALAL MEAT PACKER HOME VISIT 03/26/2025 Home Care Visit [facility] [address] [place], [place] [phone] Chantell Pride, RN TELEPHONE ENCOUNTER 03/25/2025 12:15 PM EDT Home Care Visit [facility] [address] [place] [address] Lizzie Guzman, PT PT HOME VISIT 03/25/2025 Home Care Visit [facility] [address] [place] [address] Chantell Pride, RN CASE COMMUNICATION 03/23/2025 12:15 PM EDT Home Care Visit [facility] [address] [place] [address] Lizzie Guzman, PT PT HOME VISIT 03/22/2025 12:15 PM EDT Home Care Visit [facility] [address] [place] [address] Francie Patterson, EMI HALAL MEAT PACKER HOME VISIT 03/19/2025 10:15 AM EDT Home Care Visit [facility] [address] [place], [place] [phone] Lizzie Guzman, PT PT HOME VISIT 03/17/2025 1:00 PM EDT Home Care Visit [facility] [address] [place] [address] Ade Duvall, RN SN HOME VISIT 03/17/2025 11:45 AM EDT Home Care Visit [facility] [address] [place], [place] [phone] Lizzie Guzman, PT PT HOME VISIT 03/15/2025 2:00 PM EDT Home Care Visit [facility] [address] [place], [place] [phone] Ade Duvall, NESHA SN HOME VISIT 03/12/2025 12:30 PM EDT Home Care Visit [facility] [address] [place] [address] Francie Patterson LPN HALAL MEAT PACKER HOME VISIT 03/12/2025 12:00 PM EDT Home Care Visit [facility] [address] [place] [address] Lizzie Guzman, PT PT EVALUATION 03/10/2025 1:00 PM EDT Home Care Visit [facility] [address] [place] [address] Ade Duvall RN SN HOME VISIT 03/04/2025 Home Care Visit [facility] [address] [place] [address] Annita Parker, PT TELEPHONE ENCOUNTER 03/01/2025 12:00 PM EDT Home Care Visit [facility] [address] [place] [address] Kaleigh Hernandez, RN SN OASIS START OF CARE (SOC) 03/01/2025 Plan of Care Documentation [facility] [address] [place] [address] 02/27/2025 Home Care Visit [facility] [address] [place] [address] Katie Gutierrez, RN CASE COMMUNICATION 02/26/2025 Home Care Visit [facility] [address] [place] [address] Chantell Pride RN CASE COMMUNICATION 02/11/2025 Orders Only [facility] [address] [place] [address] Obie Hurtado MD 01/29/2025 Orders Only [facility] [address] [place] [address] Obie Hurtado MD 01/27/2025 Home Care Visit [facility] [address] [place] [address] Lizandro Nix, CCC-SHUFFLE BOARD OPERATOR SHUFFLE BOARD OPERATOR OASIS TRANSFER WITH DISCHARGE 01/25/2025 12:00 PM EDT Home Care Visit [facility] [address] [place] [address] Lizandro Nix, CCC-SHUFFLE BOARD OPERATOR SHUFFLE BOARD OPERATOR HOME VISIT 01/25/2025 Home Care Visit [facility] [address] [place] [address] Lizandro Nix, CCC-SHUFFLE BOARD OPERATOR TELEPHONE ENCOUNTER 01/24/2025 1:30 PM EDT Home Care Visit [facility] [address] [place] [address] May Negrete, RN SN EVALUATION 01/23/2025 Home Care Visit [facility] [address] [place] [address] Katie Gutierrez, RN TELEPHONE ENCOUNTER 01/19/2025 12:45 PM EDT Home Care Visit [facility] [address] [place] [address] Lizzie Guzman, PT PT DISCIPLINE DISCHARGE VISIT 01/18/2025 Home Care Visit [facility] [address] [place] [address] Lizzie Guzman, PT TELEPHONE ENCOUNTER 01/13/2025 10:30 AM EDT Home Care Visit [facility] [address] [place] [address] Lizandro Stephens, OT OT DISCIPLINE DISCHARGE VISIT from Last 3 Months Social History Tobacco [...] 11/17/2024 11:03 PM EDT Plan of Treatment Upcoming Encounters Date Type Department Care Team (Late st Contact Info) Description 04/17/2025 12:30 AM EDT Home Care Visit [facility] [address] [place] [address] Ade Duvall, NESHA [address] [place] [address] 04/19/2025 12:30 AM EST Home Care Visit [facility] [address] [place], [place] [phone] Ade Duvall, NESHA [address] [place] [address] 04/19/2025 12:00 PM EST Home Care Visit [facility] [address] [place] [address] Jens Telles, OT [address] [place] [address] [email or web address] 04/21/2025 1:30 AM EST Home Care Visit [facility] [address] [place] [phone] Ade Duvall, NESHA [address] [place] [address] 04/21/2025 12:30 PM EST Home Care Visit [facility] [address] [place] [phone] DarienJens Up, OT [address] [place] [address] [email or web address] 04/23/2025 12:30 AM EST Home Care Visit [facility] [address] [place] [phone] Ade Duvall, NESHA [address] [place] [address] 04/25/2025 12:30 AM EST Home Care Visit [facility] [address] [place] [phone] Ade Duvall, NESHA [address] [place] [address] 04/27/2025 2:00 AM EST Appointment [facility] [address] [place] [phone] Ade Duvall, NESHA [address] [place] [address] 04/29/2025 3:30 AM EST Home Care Visit [facility] [address] [place] [phone] Ade Duvall, NESHA [address] [place] [address] Health Maintenance Due Date Last Done Comments DEPRESSION SCREENING 1972 SMOKING Hx and SMOKELESS TOBACCO SCREENING 1973 HEPATITIS C SCREENING 1978 HIV ONE-TIME SCREENING (18-65 YEARS) 1978 PNEUMOCOCCAL VACCINES (50+ years) (1 of 2 - PCV) 11/14/1979 PAP SMEAR 1981 MAMMOGRAM 2000 COLOGUARD 2005 COLONOSCOPY 2005 COLORECTAL CANCER SCREENING 2005 FIT TEST 2005 FOBT 2005 SIGMOIDOSCOPY 2005 VIRTUAL COLONOSCOPY 2005 RSV VACCINE (1 - Risk 50-74 years 1-dose series) 2010 ZOSTER VACCINES (1 of 2) 2010 Adult Td,Tdap Booster 01/04/2019 01/04/2009 DIABETIC EYE EXAM 10/31/2024 INFLUENZA VACCINE (#1) 2025 COVID-19 VACCINE (1 - 2024- season) 2025 HEMOGLOBIN A1C 05/20/2025 11/18/2024, 11/17/2024 BLOOD PRESSURE 10/12/2025 04/13/2025 CREATININE LEVEL 11/23/2025 11/23/2024, 01/2025, 11/21/2024, Additional history exists POTASSIUM LEVEL 11/23/2025 11/23/2024, 01/2025, 11/21/2024, Additional history exists HEPATITIS A [...] this topic Medical Devices Implanted Type Area Creative Writer Device Identifier Shelf Expiration Date Model / Serial / Lot Device Closure 6-7fr Mynxgrip Vascular Femoral Artery Atraumatic Tip Bx/10ea - [id number] Implanted:Qty: 1 on 11/21/2024 by Naar Bingham MD at [facility] Closure Device Right: Femoral Artery [employer]ARRI 09/21/2026 [id number] / / [id number] Stent Sherry 7mm 120mm 130cm Drug-Eluting Vascular - [id number] Implanted:Qty: 1 on 11/21/2024 by Nara Bingham MD at [facility] Stent Left: Arterial [employer] 12/05/2025 [id number] / / [id number] Description:Left SFA Stent Sherry 7mm 80mm 130cm Drug-Eluting Vascular - [id number] Implanted:Qty: 1 on 11/21/2024 by Nara Bingham MD at [facility] Stent Left: Femoral Artery [employer] 02/19/2026 [id number] / / [id number] Description:Left SFA Procedures Procedure Name Priority Date/Time Associated Diagnosis Comments BASIC METABOLIC PANEL Routine 11/23/2024 6:27 AM EDT HEMOGLOBIN A1C Routine 11/18/2024 3:40 AM EDT from Last 3 Months or Most Recently Relevant to Health Maintenance Results * (ABNORMAL) Basic metabolic panel (11/23/2024 6:27 AM EDT) SODIUM 139 135 - 145 mmol/L [facility] POTASSIUM 4.5 3.4 - 5.0 mmol/L [facility] CHLORIDE 102 98 - 108 mmol/L [facility] CO2 23 23 - 32 mmol/L [facility] BUN 12 8 - 25 mg/dL [facility] CREATININE 0.88 0.50 - 1.00 mg/dL [facility] GLUCOSE 182(H) 70 - 110 mg/dL [facility] CALCIUM 9.2 8.5 - 10.5 mg/dL [facility] EGFR 73 >59 mL/min/1. 73m2 [facility] Comment:Estimated glomerular filtration rate calculated using the CKD-EPI refit equation. ANION GAP 14 3 - 17 mmol/L [facility] Blood 11/23/2024 6:27 AM EDT 11/23/2024 6:42 AM EDT us Fercho Sarabia MD LAB BLOOD ORDERABLES Final Res ult [address] [address] * (ABNORMAL) Hemoglobin A1c (11/18/2024 3:40 AM EDT) HEMOGLOBIN A1C 7.1(H) 4.3 - 5.6 % [facility] Comment:HbA1c levels 5.7-6.4 % represent pre-diabetes, indicating impaired glucose control and an increased risk of developing diabetes compared with lower HbA1c levels. The diagnostic HbA1c level for diabetes is 6.5% or greater. CALC MEAN BLD GLUC 157 mg/dL [facility] Comment:There is no 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 [address] [place] [address] [place] & [place] [address] [place] [address] MEDICARE PART A & B Advance Directives For more information, please contact: [phone] (9AM - 5PM [facility], Saturday-Saturday) Documents on File Type Date Recorded Patient Spring Tacker Expl anation Healthcare Proxy 11/24/2024 4:43 PM MOLST 11/24/2024 11:48 AM * Full Code (Latest Code Status on File) Date Activated Date Inactivated Comments 10/31/2024 6:31 PM Question Answer Comments Code Status Confirmed With: Other (specify below ) Care Teams Entry Engineer Relationship Specialty Start Date End Date Maria R Sarmiento MD [address] [place] [address] [place] [phone] PCP - General Internal Medicine 11/23/24 Additional Source Comments The information contained in this document represents components of the legal health record. It is not the complete legal health record.[facility]
== END 2025-04-15 11:51 | disposition home or self-care (01) ==
LOC: HO.HOSX 11:50
PROVIDERS: Visit Provider Physician Assistant
DX: M77.8 Other enthesopathies, not elsewhere classified (principal); E11.9 Type 2 diabetes mellitus without complications; Z79.899 Other long term (current) drug therapy; Z79.4 Long term (current) use of insulin
CPT/HCPCS: 73030; 99212

== ENCOUNTER 2025-04-15 13:08 | Outpatient (AMB) | payer MEDICARE, MEDICAID, SELFPAY ==
--- OUTSIDE RECORDS SUMMARY | 2025-04-14 23:59 | XMS_ITS | Continuity of Care Document ---
Author Organization [facility] Address [address] [place] [address]- Care Team Providers Care Quality Control Inspector Heading Name Role Phone Maria R Sarmiento MD Primary Care Physician [phone] [id number] Date(s): [facility]/07[facility]25 - 04/14/25 [facility] [address] [place] [phone]- Attending Physician: Anya Hernandez NP Admitting Physician: Anya Hernandez NP Referring Physician: Maria R Sarmiento MD Encounter Type: Office Visit Allergies, Adverse Reactions, Alerts Substance Criticality Severity Reaction Reaction Severity Status amoxicillin 1 Unable to assess criticality Unknown Resolved penicillin 2 Unable to assess criticality Unknown Resolved Latex Active [place] Active [place] Active Nuts Active Apples Active Percocet 5/325 ITCHY Activ e oxyCODONE Unable to assess criticality Unknown Oxycodone Active 1previously tolerated ampicillin/sulbactam without issue 2previously tolerated ampicillin/sulbactam without issue (11/25/24) Functional Status Functional Status Assessment Assessment Assessment Component Result Effecti ve Date Disability status [CUBS] I'm Safe - I rarely have acute or chronic symptoms affecting housing, employment, social interactions, etc. 04/07/25 Are you deaf, or do you have serious difficulty hearing Unknown 04/07/25 Because of a physica l, mental, or emotional condition, do you have difficulty doing errands alone such as visiting a physician's office or shopping Unknown 04/07/25 Do you have difficul ty dressing or bathing Unknown 04/07/25 Do you need any reynaldo tional assistance or accommodations during your visit Unknown 04/07/25 Do you have serious difficulty walking or climbing stairs Unknown 04/07/25 Because of a physica l, mental, or emotional condition, do you have serious difficulty concentrating, remembering, or making decisions Unknown 04/07/25 Difficulty Reading O r Writing Unknown 04/07/25 Are you blind, or do you have serious difficulty seeing, even when wearing glasses Unknown 04/07/25 Difficulty communica ting in usual language Unknown 04/07/25 Immunizations Given and Recorded Vaccine Date Status Refusal Reason influenza virus vaccine, inactivated 04/25/15 Quang rded influenza virus vaccine, inactivated 03/30/13 Quang rded influenza virus vaccine, inactivated 03/19/12 Quang rded influenza virus vaccine, inactivated 05/31/11 Quang rded influenza virus vaccine, inactivated 03/02/10 Quang rded influenza virus vaccine, inactivated 05/06/06 Quang rded tetanus/diphtheria/pertussis, acel(Tdap) 01/04/09 Recorded pneumococcal 23-valent vaccine 01/28/07 Recorded Medications acetaminophen 325 mg oral tablet 3 tablets, By Mouth, Every 8 hours, 3 tablets Q8H x 7 days, Acute, Partial fill upon patient request if the prescription is for a schedule II opioid drug. Start Date: 11/25/24 Status: Ordered Medication Dispense Status: Completed Total Allowed Fills: 1 Fills Dispensed: 0 atorvastatin 40 mg oral tablet = 40 mg, By Mouth, Daily at bedtime, # 90 tablet, 0 Refills, Maintenance, 02/22/25 3:29:00 PM EDT, Tablet, [id number], Partial fill upon patient request if the prescription is for a schedule II opioid drug., 156, cm, 02/22/25 11:35:00 EDT, Height, 59.7, kg, 02/14/25 10:02:00 EDT, Dry Weight Start Date: 02/22/25 Stop Date: 05/23/25 Status: Ordered Medication Dispense Status: Completed Quantity: 90.0 Unit: tablet Total Allowed Fills: 1 Fills Dispensed: 0 clopidogrel 75 mg oral tablet 75 mg, 1, tablet, By Mouth, Daily, Maintenance, 11/25/24 3:52:00 PM EDT, Partial fill upon patient request if the prescription is for a schedule II opioid drug. Start Date: 11/25/24 Status: Ordered Medication Dispense Status: Completed Total Allowed Fills: 1 Fills Dispensed: 0 docusate sodium 100 mg oral capsule 1 capsule = 100 mg, By Mouth, 2 times a day, Maintenance, 11/25/24 3:53:00 PM EDT, Partial fill uponpatient request if the prescription is for a schedule II opioid drug. Start Date: 11/25/24 Status: Ordered Medication Dispense Status: Completed Total Allowed Fills: 1 Fills Dispensed: 0 Dulcolax 5 mg oral enteric coated tablet 1 tablet = 5 mg, By Mouth, Daily, PRN Constipation, Maintenance, 11/25/24 3:59:00 PM EDT, Partial fill upon patient request if the prescription is for a schedule II opioid drug. Start Date: 11/25/24 Status: Ordered Medication Dispense Status: Completed Total Allowed Fills: 1 Fills Dispensed: 0 DULoxetine Capsule = 60 mg, By Mouth, Daily at bedtime, Continue 30 mg until 03/06 then increase to 60 mg daily, 0 Refills, Maintenance, 02/15/25 11:33:00 PM EDT, Partial fill upon patient request if the prescription is for a schedule II opioid drug. Start Date: 02/15/25 Status: Ordered Medication Dispense Status: Completed Total Allowed Fills: 1 Fills Dispensed: 0 ergocalciferol 27277 iu oral capsule 50,000 International_Units, 1, capsule, By Mouth, Daily, Maintenance, 11/25/24 3:53:00 PM EDT, Partial fill upon patient request if the prescription is for a schedule II opioid drug. Start Date: 11/25/24 Status: Ordered Medication Dispense Status: Completed Total Allowed Fills: 1 Fills Dispensed: 0 ezetimibe 10 mg oral tablet 1 tablet = 10 mg, By Mouth, Daily, Maintenance, 11/25/24 3:54:00 PM EDT, Partial fill upon patient request if the prescription is for a schedule II opioid drug. Start Date: 11/25/24 Status: Ordered Medication Dispense Status: Completed Total Allowed Fills: 1 Fills Dispensed: 0 Flonase Allergy Relief 50 mcg/inh nasal spray 1 sprays = 50 mcg, Nares, Both, Daily, Maintenance, 11/25/24 3:55:00 PM EDT, Partial fill upon patient request if the prescription is for a schedule II opioid drug. Start Date: 11/25/24 Status: Ordered Medication Dispense Status: Completed Total Allowed Fills: 1 Fills Dispensed: 0 gabapentin 300 mg oral capsule 300 mg, By Mouth, 3 times a day, Refills 0, Maintenance, 02/22/25 3:22:00 PM EDT, Partial fill upon patient request if the prescription is for a schedule II opioid drug. Start Date: 02/22/25 Status: Ordered Medication Dispense Status: Completed Total Allowed Fills: 1 Fills Dispensed: 0 lisinopril 30 mg oral tablet 1 tablet = 30 mg, By Mouth, Daily, Maintenance, 11/25/24 3:56:00 PM EDT, Partial fill upon patient request if the prescription is for a schedule II opioid drug. Start Date: 11/25/24 Status: Ordered Medication Dispense Status: Completed Total Allowed Fills: 1 Fills Dispensed: 0 metFORMIN 1000 mg oral tablet 1 tablet = 1,000 mg, By Mouth, 2 times a day, # 60 tablet, 0 Refills, Maintenance, 02/22/25 3:29:00 PM EDT, Tablet, [id number], Partial fill upon patient request if the prescription is for a schedule II opioid drug., 156, cm, 02/22/25 11:35:00 EDT, Height, 59.7, kg, 02/14/25 10:02:00 EDT, Dry Weight Start Date: 02/22/25 Stop Date: 03/24/25 Status: Ordered Medication Dispense Status: Completed Quantity: 60.0 Unit: tablet Total Allowed Fills: 1 Fills Dispensed: 0 Metoprolol Succinate ER 100 mg oral tablet, extended release 100 mg, 1, tablet, By Mouth, Daily, Refills 0, Maintenance, 02/24/25 9:46:00 AM EDT, Partial fill upon patient request if the prescription is for a schedule II opioid drug. Start Date: 02/24/25 Status: Ordered Medication Dispense Status: Completed Total Allowed Fills: 1 Fills Dispensed: 0 Multivit/Iron/Minerals Chew Tablet 1 tablet, Chew, Daily, 0 Refills, Maintenance, 02/22/25 3:27:00 PM EDT, Chew Tablet, Partial fill upon patient request if the prescription is for a schedule II opioid drug. Start Date: 02/22/25 Status: Ordered Medication Dispense Status: Completed Total Allowed Fills: 1 Fills Dispensed: 0 please measure and fit for a forefoot offload shoe right 5th toe amputation please measure and fit for a forefoot offload shoe right 5th toe amputation, See Instructions, # 1 each, Refills 0, Tot. Refills 0, Maintenance, Right forefoot offloading shoe right fifth toe amputation, 04/07/25 2:11:00 PM EDT, Supply Start Date: 04/07/25 Status: Ordered Medication Dispense Status: Completed Quantity: 1.0 Unit: each Total Allowed Fills: 1 Fills Dispensed: 0 Protonix 20 mg oral delayed release tablet 1 tablet = 20 mg, By Mouth, Daily, # 30 tablet, 0 Refills, Maintenance, 02/24/25 1:08:00 PM EDT, CR Tablet, 156, cm, 02/24/25 7:59:00 EDT, Height, 59.7, kg, 02/14/25 10:02:00 EDT, Dry Weight Start Date: 02/24/25 Stop Date: 03/26/25 Status: Ordered Medication Dispense Status: Completed Quantity: 30.0 Unit: tablet Total Allowed Fills: 1 Fills Dispensed: 0 Protonix 40 mg oral delayed release tablet = 40 mg, By Mouth, Daily, 0 Refills, Maintenance, 02/24/25 9:47:00 AM EDT, EC Tablet Start Date: 02/24/25 Status: Ordered Medication Dispense Status: Completed Total Allowed Fills: 1 Fills Dispensed: 0 Ranexa 1000 mg oral tablet, extended release 1 tablet = 1,000 mg, By Mouth, 2 times a day, Maintenance, 11/25/24 3:58:00 PM EDT, Partial fill upon patient request if the prescription is for a schedule II opioid drug. Start Date: 11/25/24 Status: Ordered Medication Dispense Status: Completed Total Allowed Fills: 1 Fills Dispensed: 0 rivaroxaban 2.5 mg oral tablet = 2.5 mg, By Mouth, 2 times a day, # 180 tablet, 3 Refills, Maintenance, 03/24/25 2:17:00 PM EDT, Tablet, [facility] #[id number], Partial fill upon patient request if the prescription is for a schedule II opioid drug., 156, cm, 03/24/25 13:39:00 EDT, Height, 59.7, kg, 02/14/25 10:02:00 EDT, Dry Weight Start Date: 03/24/25 Stop Date: 03/19/26 Status: Ordered Medication Dispense Status: Completed Quantity: 180.0 Unit: tablet Total Allowed Fills: 4 Fills Dispensed: 0 rivaroxaban 2.5 mg oral tablet = 2.5 mg, By Mouth, 2 times a day, # 60 tablet, 0 Refills, Maintenance, 02/24/25 10:41:00 AM EDT, Tablet, [facility] #[id number], Partial fill upon patient request if the prescription is for a schedule II opioid drug., 156, cm, 02/24/25 7:59:00 EDT, Height, 59.7, kg, 02/14/25 10:02:00 EDT, Dry Weight Start Date: 02/24/25 Stop Date: 03/26/25 Status: Ordered Medication Dispense Status: Completed Quantity: 60.0 Unit: tablet Total Allowed Fills: 1 Fills Dispensed: 0 rosuvastatin 40 mg oral capsule 1 capsule = 40 mg, By Mouth, Daily, # 90 capsule, 0 Refills, Maintenance, 03/10/25 11:24:00 AM EDT, Capsule, Partial fill upon patient request if the prescription is for a schedule II opioid drug. Start Date: 03/10/25 Status: Ordered Medication Dispense Status: Completed Quantity: 90.0 Unit: capsule Total Allowed Fills: 1 Fills Dispensed: 0 Santyl 250 u/gm ointment 1 application, Topically, Daily, for 30 days, clean affected area before application; apply nickel thick to foot wound and cover 3x1.5cm, # 30 Gm, 3 Refills, Acute 07/22/25 2:20:00 PM EST, 03/24/25 2:20:00 PM EDT, Ointment, [facility] #[id number], Partial fill upon patient request if the prescripti on is for a schedule II opioid drug., 1 application Topically Daily,x30 days,Instr:clean affected area before application; apply nickel thick to foot wound and cover 3x1.5cm, 156, cm, 03/24/25 13:39:00 EDT, Height, 59.7, kg, 02/14/25 10:02:00 EDT, Dry Weight Start Date: 03/24/25 Stop Date: 07/22/25 Status: Ordered Medication Dispense Status: Completed Quantity: 30.0 Unit: g Total Allowed Fills: 4 Fills Dispensed: 0 Indications: Type 2 diabetes mellitus with foot ulcer; Acquired absence of other toe(s), unspecified side; ZyrTEC 10 mg oral tablet 1 tablet = 10 mg, By Mouth, Daily, PRN Allergies, Maintenance, 11/25/24 4:00:00 PM EDT, Partial fillupon patient request if the prescription is for a schedule II opioid drug. Start Date: 11/25/24 Status: Ordered Medication Dispense Status: Completed Total Allowed Fills: 1 Fills Dispensed: 0 Problem List Condition Confirmation Course Effective Dates Status Health St atus Informant Diabetes Confirmed Active S/P CABG (coronary artery bypass graft) Confirmed Active Insomnia Confirmed Active Moderate major depression Confirmed Active PAD (peripheral artery disease) Confirmed Active Unstable angina Confirmed Active Vital Signs Most recent to oldest [Reference Range]: 1 Height 156 cm (04/07/25 1:32 PM) Weight 59.7 kg (04/07/25 1:32 PM) Oxygen Saturation [94-100 %] 99 % (04/07/25 1:32 PM) Pulse Rate [55-90 bpm] 74 bpm (04/07/25 1:32 PM) Body Mass Index [18.5-24.99 kg/m2] 24.53 kg/m2 (04/07/25 1:32 PM) Blood Pressure [90-138/55-84 mm Hg] 144/ 56mm Hg *H* (04/07/25 1:32 PM) Mode of Delivery (Oxygen) Room air (04/07/25 1:32 PM) Blood pressure sites Arm, left (04/07/25 1:32 PM) Weight Obtained Via Patient/family state d (04/07/25 1:32 PM) Social History Social History Type Response Smoking Status Former smoker, quit more than 30 days ago; Interested in cessation: No; Patient wants NRT during admission No entered on: 05/13/23 Sexual Orientation Self described orien tation: ; Straight or heterosexual Sex Sex Representation Female (finding) Patient Care team information Care Team Personnel Name: Maria R Sarmiento MD Position: [facility] Outreach Member Role: PCP Address: [address] [place] [address] [address] Maria R Sarmiento MD [place], [place] [address]- Telecom: Name: Deisy Terrazas RN Position: [facility] SN RN Member Role: Primary Care Nurse Name: Ruchi Dorman RN Position: [facility] RN Member Role: Primary Care Nurse Name: Octaviano Rahman RN Position: [facility] RN Member Role: Primary Care Nurse Name: Amandeep Elizondo RN Position: [facility] RN Member Role: Primary Care Nurse Name: Jaimee Rausch RN Position: [facility] RN Member Role: Primary Care Nurse Name: Fran Lau RN Position: [facility] RN Member Role: Primary Care Nurse Name: Denise Villarreal RN Position: [facility] SN RN Member Role: Primary Care Nurse Care Team Related Persons Name: SONA JO Name: LUIS SEO Name: RIANNA KATZ Insurance Providers Guarantor name: VIVEK STERLING Health Plan Information #: 1 Payer: MEDICARE B Payer Identifier: Member Number: [id number] Group Number: Subscriber Identifier: [id number] Relationship to Subscriber: self Coverage Type: NA Coverage Verification Date: NA Telecom: NA Address: Health Plan Information #: 2 [facility] [employer] Payer Identifier: Member Number: [id number] Group Number: Subscriber Identifier: [id number] Relationship to Subscriber: self Coverage Type: MEDICAID Coverage Verification Date: Telecom: Address:
--- NOTE | 2025-04-15 13:32 | MHC.OFFVIS ---
Intake Visit Reasons: New prob-B/L shoulder pain LT>RT Intake Note: Vee is a 64 year old right hand dominant female who presents today as an established patient, new problem visit to evaluate bilateral shoulder pain. Patient reports that her pain has been present the past 6 months with her left shoulder being the worse. Her pain is primarily in her shoulder, states started in her left shoulder and is now having right shoulder pain. Complaints of limited ROM. Due to her pain she is unable to sleep on her left side. Denies injury. No numbness or tingling. No previous treatment. Allergies apple (Apple) Allergy (Unknown, Verified 04/15/25 13:38) APPLE PEEL - ITCHY THROAT nut - unspecified (nut) Allergy (Unknown, Verified 04/15/25 13:38) ITCHY THROAT pineapple (Pineapple) Allergy (Unknown, Verified 04/15/25 13:38) ITCHY THROAT amoxicillin Allergy (Verified 04/15/25 13:38) Itching oxycodone (From Percocet) Allergy (Verified 04/15/25 13:38) Anxiety lim Adverse Reaction (Intermediate, Verified 04/15/25 13:38) Swelling DUST Allergy (Unknown, Uncoded 04/15/25 13:38) EYES, NOSE ITCHY - ASTHMA GRASS Allergy (Unknown, Uncoded 04/15/25 13:38) ITCHY EYES - THROAT pet dander Adverse Reaction (Mild, Uncoded 04/15/25 13:38) Itchy Eyes Medication List - Last Reconciled 04/15/25 by Rudi Dimas PA-C acetaminophen 650 mg PO Q6H PRN ascorbic acid (vitamin C) 500 mg PO BID clopidogrel 75 mg PO DAILY cyanocobalamin (vitamin B-12) (Vitamin B-12) 100 mcg PO DAILY duloxetine 60 mg PO DAILY ezetimibe 10 mg PO BEDTIME ferrous sulfate 324 mg PO BIDWM gabapentin 300 mg (3 x 100 mg) PO TID 30 days insulin aspart U-100 (Novolog FlexPen U-100 Insulin aspart) See Protocol sliding scale doses subcut USEASDIRECTD lidocaine 5% 1 patch topically; lisinopril 20 mg PO DAILY metformin 1,000 mg PO BIDWM metoprolol succinate ER 100 mg PO BEDTIME pantoprazole 40 mg PO DAILY@0630 ranolazine ER 1,000 mg PO BID rivaroxaban (Xarelto) 2.5 mg PO BID rosuvastatin 40 mg PO DAILY HPI HPI New prob-B/L shoulder pain LT>RT: Details: 64-year-old female presents to the office today for bilateral shoulder pain left worse than right. She denies injury. She states she has discomfort in the left shoulder when she is trying to sleep at night and with reaching activities. She has had no treatment to the shoulders to date. 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 She is also a diabetic but states her sugar levels are well controlled. [facility] Medical History Dizziness Orthostatic hypotension Stenosis of left vertebral artery CVA (cerebral vascular accident) Peripheral vascular disease Neuropathy Coronary artery disease Brain TIA Hypertension Diabetes Surgical History History of angioplasty of peripheral vessel Status post aorto-coronary artery bypass graft Family History Father Coronary artery disease involving coronary bypass graft Mother No problems noted. Social History Household Members: Family Household Members Other:: lives with brother Housing: House Do you presently have visiting nurse or other home services: No Alcohol intake: never Patient Tobacco Use Status: Former Tobacco user Years Smoked: Remote smoking, quit in her 30s Second Hand Smoke Exposure: No service: No Current occupational status: unemployed Review of Systems Const All systems reviewed & are unremarkable except as noted in HPI and below Physical Exam Extrem Other: Bilateral shoulders are normal to inspection. She has full range of motion in all planes with tenderness to palpation over the proximal biceps tendon on the left. Negative Banegas. Negative cross-body adduction. She does have tenderness with rotator cuff strength testing but no significant weakness. 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 We will hold off on the injections at this time as she is a diabetic and recovering from surgery so I do not want to increase her risk of infection. Once she has clearance from her foot doctor she can contact me to make an appointment for her shoulder. I would do 1 shoulder at a time given her history of diabetes. In the meantime she will contact physical therapy to make an appointment and continue with [id number] Tylenol as she is on Xarelto. Orders: Orders XR Shoulder Saul min 2V Today M25.519 - Pain in unspecified shoulder Referrals [facility] Referral M77.8 - Other enthesopathies, not elsewhere classified Coding Level of Care Code Est Pt Level 3 (46807) Complex EM visit Add On G2211 Diagnoses Tendinitis of both shoulders M77.8
== END 2025-04-15 15:13 | disposition home or self-care (01) ==
LOC: HO.HOS 13:09
PROVIDERS: Visit Provider Physician Assistant
DX: M77.8 Other enthesopathies, not elsewhere classified (principal)
CPT/HCPCS: 99213; G2211

== ENCOUNTER → 2025-04-15 13:10 | Outpatient (BNV) | payer MEDICARE, MEDICAID, SELFPAY | PROVIDERS: Visit Provider Radiology Diagnostic Radiology | DX: M19.011 Primary osteoarthritis, right shoulder (principal); M19.012 Primary osteoarthritis, left shoulder | CPT/HCPCS: 73030 ==

== ENCOUNTER → 2025-04-29 13:55 | Outpatient (BNV) | payer MEDICARE, MEDICAID, SELFPAY | PROVIDERS: Visit Provider Radiology Diagnostic Radiology | DX: S91.301A Unspecified open wound, right foot, initial encounter (principal) | CPT/HCPCS: 73630 ==

== ENCOUNTER 2025-05-20 14:09 | Outpatient (AMB) | payer MEDICARE, MEDICAID, SELFPAY ==
[2025-05-20 14:14] VITALS: BP 140/82; PULSE 72
--- NOTE | 2025-05-20 14:14 | A.OFFVIS_ITS ---
Vital Signs 05/20/25 14:14 Height 5 ft 1 in BMI Reason not done Patient refused/unable BP 140/82 H Blood Pressure Location Lt brachial Position Sitting Pulse 72 Intake Visit Reasons: 3m follow up Intake Note: 3 month follow-up c/o pain under left breast for a month now on and off Roving Sizer Required: No Platform Builder: Platform Builder Present Accompanied by: grandson Allergies apple (Apple) Allergy (Unknown, Verified 04/15/25 13:38) APPLE PEEL - ITCHY THROAT nut - unspecified (nut) Allergy (Unknown, Verified 04/15/25 13:38) ITCHY THROAT pineapple (Pineapple) Allergy (Unknown, Verified 04/15/25 13:38) ITCHY THROAT amoxicillin Allergy (Verified 04/15/25 13:38) Itching oxycodone (From Percocet) Allergy (Verified 04/15/25 13:38) Anxiety lim Adverse Reaction (Intermediate, Verified 04/15/25 13:38) Swelling DUST Allergy (Unknown, Uncoded 04/15/25 13:38) EYES, NOSE ITCHY - ASTHMA GRASS Allergy (Unknown, Uncoded 04/15/25 13:38) ITCHY EYES - THROAT pet dander Adverse Reaction (Mild, Uncoded 04/15/25 13:38) Itchy Eyes Medication List - Last Reconciled 05/20/25 by COLTEN Vance acetaminophen 650 mg PO Q6H PRN ascorbic acid (vitamin C) 500 mg PO BID clopidogrel 75 mg PO DAILY cyanocobalamin (vitamin B-12) (Vitamin B-12) 100 mcg PO DAILY duloxetine 60 mg PO DAILY ezetimibe 10 mg PO BEDTIME ferrous sulfate 324 mg PO BIDWM gabapentin 300 mg PO BID PRN insulin aspart U-100 (Novolog FlexPen U-100 Insulin aspart) See Protocol sliding scale doses subcut USEASDIRECTD lidocaine 5% 1 patch topically; lisinopril 20 mg PO DAILY metformin 1,000 mg PO BIDWM metoprolol succinate ER 100 mg PO BEDTIME pantoprazole 40 mg PO DAILY@0630 ranolazine ER 1,000 mg PO BID rivaroxaban (Xarelto) 2.5 mg PO BID rosuvastatin 40 mg PO DAILY HPI HPI 3m follow up: Details: Vee is a 64 yo female with PMH of HTN, HLD, DM, CAD, 3 vessel CABG 2018, heart murmur, PVD with known left femoral stent occlusion who presents for follow-up. She did undergo cardiac catheterization 05/14/2023 with PCI to the vein graft aorta left to 1st OM. Since her last visit in December she was hospitalized for significant anemia requiring transfusions. Her anticoagulation was briefly held then restarted. She was put on PPI. She did have secondary NSTEMI in the setting of her anemia. She has had issues with her peripheral vascular disease and underwent angioplasty to the right popliteal and stent to the right SFA, then amputation of the right 5th toe. She has been followed by Dr. Blanca for vascular. Today she reports that she has been getting some sharp pains in her anterior chest occurring randomly and mostly at rest. She has no chest discomfort that is brought on by physical activity. She has been mostly sedentary in his limited by her right foot issues. She has recovered from her left ankle fracture. No shortness of breath, PND, orthopnea or edema. No heart palpitations, lightheadedness, presyncope, syncope. Taking meds as directed. Son is present. [facility] Medical History Anemia Anemia Dizziness Orthostatic hypotension Stenosis of left vertebral artery CVA (cerebral vascular accident) Peripheral vascular disease Neuropathy Coronary artery disease Brain TIA Hypertension Diabetes Surgical History History of angioplasty of peripheral vessel Status post aorto-coronary artery bypass graft Family History Father Coronary artery disease involving coronary bypass graft Mother No problems noted. Social History Household Members: Family Household Members Other:: lives with brother Housing: House Do you presently have visiting nurse or other home services: No Alcohol intake: never Patient Tobacco Use Status: Former Tobacco user Years Smoked: Remote smoking, quit in her 30s Second Hand Smoke Exposure: No service: No Current occupational status: unemployed Review of Systems Const All systems reviewed & are unremarkable except as noted in HPI and below Denies chills, Denies fatigue, Denies fever(s), Denies frequent falls, Denies weakness, Denies weight gain and Denies weight loss ENT Denies dizziness Card Reports chest pain (quick stabbing), Reports chest pain at rest, Denies leg edema, Denies lightheadedness, Denies palpitations, Denies dyspnea, Denies dyspnea on exertion, Denies orthopnea and Denies other (loss of consciousness) Resp Denies cough, Denies dyspnea and Denies dyspnea on exertion GI Denies hematochezia and Denies change in stool character Musc Denies abnormal gait, Denies muscle weakness, Denies numbness, Denies radiating pain into limb and Denies tingling Neuro Denies abnormal gait, Denies dizziness, Denies frequent falls, Denies numbness, Denies tingling and Denies weakness Endo Denies fatigue and Denies palpitations Assessment & Plan Assessment & Plan (1) Coronary artery disease: Code(s): I25.10 - Atherosclerotic heart disease of [place] coronary artery without angina pectoris Category: Medical Plan: History of CAD with 3 vessel Coronary artery bypass grafting 2019. 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 She started following with us in 2022. She did undergo a cardiac catheterization 05/14/2023 with PCI to the vein graft from aorta left to OM1, patent DILLON to LAD, occluded graft to the RCA, patent proximal to mid RCA, stent with mild ISR, occluded ostial PDA stent. Last echocardiogram 05/15/2023 with EF 70%, mild asymmetrical septal hypertrophy. Currently reporting atypical quick stabbing anterior chest discomfort. EKG today showing normal sinus rhythm, anterior septal Q-waves which are unchanged, rate 72. Will update echocardiogram to reassess EF and wall motion as she did have recent secondary NSTEMI during hospitalization with significant anemia. Reviewed signs and symptoms of angina. Continue on Plavix, rosuvastatin with ideal LDL goal less than 70, metoprolol, Ranexa. Cardiology follow-up in 3 months, sooner if needed (2) Status post aorto-coronary artery bypass graft: Comment: 3 vessel - 2019 Code(s): Z95.1 - Presence of aortocoronary bypass graft Category: Surgical Plan: As above (3) S/P cardiac catheterization: Comment: 05/14/2023, severe multivessel disease, patent DILLON to LAD, known occluded graft to RCA, patent proximal to mid RCA stent with mild ISR, occluded ostial PDA stent, severe disease in the vein touch down to OM, PCI to vein graft to OM, NIKOLAS placed Code(s): Z98.890 - Other specified postprocedural states Category: Surgical Plan: As above (4) Chest discomfort: Code(s): R07.89 - Other chest pain Category: Medical Plan: Atypical chest discomfort as above. (5) Peripheral vascular disease: Comment: 11/21/2024 - left SFA and popliteal stent placement Dr. Bingham at [facility] April 2024 - left lower extremity intervention in [place]. Multiple prior interventions apparently done every 6 months. Code(s): I73.9 - Peripheral vascular disease, unspecified Category: Medical Plan: She reports known history of peripheral vascular disease with prior angioplasties to each leg. Known occlusion to left femoral stent. She did have angioplasty to the right popliteal and stent to the [place] [facility] [place] Also status post right 5th toe amputation. Currently recovering. Continue Plavix and rosuvastatin/Zetia. (6) Murmur: Code(s): R01.1 - Cardiac murmur, unspecified Category: Medical Plan: Systolic Heart murmur noted on examination. Echocardiogram done 09/11/2022 does show a small LV OT gradient, increase with Valsalva, no obstruction, mild calcification of the aortic valve . Updating echo (7) Hypertension: Code(s): I10 - Essential (primary) hypertension Category: Medical Plan: Blood pressure goal less than 130/80. Mild elevation today. Meds reviewed and no changes. Reviewed low-salt diet (8) Diabetes: Code(s): E11.9 - Type 2 diabetes mellitus without complications Category: Medical Plan: Hemoglobin A1c goal less than 7. Follows with PCP. (9) Hyperlipidemia: Code(s): E78.5 - Hyperlipidemia, unspecified Category: Medical Plan: Wiggins LDL goal less than 70. Patient is on high-dose rosuvastatin. Labs done 08/06/2023 shows LDL 85. Continue rosuvastatin and Zetia. Recommended recheck of lipids at this time. Order placed. (10) Hospital discharge follow-up: Code(s): Z51.89 - Encounter for other specified aftercare Category: Medical Plan: Hospital records and discharge notes reviewed Plan I discussed the patient's new symptoms of intermittent stabbing pains. I informed her that her EKG today was unchanged, but due to her symptoms, I will order an echocardiogram to reassess her ejection fraction and wall motion. We reviewed her significant hematological improvement since her hospitalization in January. I advised her to discuss her memory concerns with her primary care provider for further evaluation. I also recommend she be careful to avoid falls due to her self-reported issues with balance. Orders: Orders CA echo transthoracic complete Today Merissa Jones, STEFANIE-C I25.10 - Atheroscl erotic heart disease of [place] coronary artery without angina pectoris Medications: Changed From gabapentin 300 mg (3 x 100 mg) PO TID 30 days 270 caps 0RF pain G89.29 - Other chronic pain, M53.3 - Sacrococcygeal disorders, not elsewhere classified, M54.50 - Low back pain, unspecified, M79.604 - Pain in right leg To gabapentin 300 mg PO BID PRN pain G89.29 - Other chronic pain, M53.3 - Sacrococcygeal disorders, not elsewhere classified, M54.50 - Low back pain, unspecified, M79.604 - Pain in right leg ENRIQUE Reyes Patient Instructions: - An EKG was performed today to check your heart and the result was stable. - We are ordering an ultrasound of your heart (echocardiogram) to further evaluate the intermittent pains you're experiencing. - Continue taking your medications, including Plavix and Xarelto, as you have been instructed. - Please be careful and try to prevent falls, since you mentioned you feel off balance at times. - Watch for any signs of bleeding, such as blood in your urine or stool, or any new nosebleeds, and let us know if this happens. - You should speak with your primary care doctor about your concerns with your memory. Patient was informed and verbally consented to the use of an ambient scribe for clinic note documentation during this visit. Visit time spent on chart review, interview, assessment, orders, documentation. Coding Level of Care Code Est Pt Level 4 (34897) Complex visit Add On G2211 Diagnoses Coronary artery disease I25.10 Status post aorto-coronary artery bypass graft Z95.1 S/P cardiac catheterization Z98.890 Chest discomfort R07.89 Peripheral vascular disease I73.9 Murmur R01.1 Hypertension I10 Diabetes E11.9 Hyperlipidemia E78.5 Hospital discharge follow-up Z51.89 Time Spent (min) 28
== END 2025-05-20 14:50 | disposition home or self-care (01) ==
LOC: HO.HCS 14:09
PROVIDERS: Visit Provider Nurse Practitioner Family
DX: I25.10 Atherosclerotic heart disease of native coronary artery without angina pectoris (principal); Z95.1 Presence of aortocoronary bypass graft; Z98.890 Other specified postprocedural states; R07.89 Other chest pain; E11.51 Type 2 diabetes mellitus with diabetic peripheral angiopathy without gangrene; I73.9 Peripheral vascular disease, unspecified; R01.1 Cardiac murmur, unspecified; I10 Essential (primary) hypertension; E78.5 Hyperlipidemia, unspecified; Z51.89 Encounter for other specified aftercare
CPT/HCPCS: 93010; 99214; G2211

== ENCOUNTER → 2025-05-20 14:09 | Outpatient (BNVA) | payer MEDICARE, MEDICAID, SELFPAY | PROVIDERS: Visit Provider Nurse Practitioner Family | DX: I25.10 Atherosclerotic heart disease of native coronary artery without angina pectoris (principal); R07.89 Other chest pain; I10 Essential (primary) hypertension; I73.9 Peripheral vascular disease, unspecified; Z95.1 Presence of aortocoronary bypass graft; Z98.890 Other specified postprocedural states; Z87.891 Personal history of nicotine dependence; E78.5 Hyperlipidemia, unspecified; I25.83 Coronary atherosclerosis due to lipid rich plaque; R01.0 Benign and innocent cardiac murmurs; Z51.89 Encounter for other specified aftercare | CPT/HCPCS: 93005; 99212 ==